=== PATIENT | male | born 1950 | race Two or more races ===

== ENCOUNTER 2020-06-27 10:45 | Day surgery (SDC) | payer MEDICARE, SELFPAY ==
[2020-06-21 11:58] VITALS: BP 119/56; PULSE 76; RESP 20; O2SAT 100; BMI 22.2
--- NOTE | 2020-06-21 12:50 | P.CONAN_ITS ---
Documented by User: Naty Castro 06/26/20 08:46 HPI - Anesthesia Eval Consult details Narrative: 69yo M for EGD with dil h/o mult EGD with GA-ETT 6.5 (tight fit), requires glidescope. Very poor mouth opening d/t throat CA s/p radiation PMFSH Past Medical History Medical History Anemia Aortic aneurysm Arthritis Back pain Cancer COPD (chronic obstructive pulmonary disease) Depression Difficulty swallowing Elevated cholesterol GERD (gastroesophageal reflux disease) History of chemotherapy HTN (hypertension) Hx of radiation therapy Pulmonary nodule Thyroid disease Surgical History Surgical History H/O colonoscopy History of back surgery History of esophagogastroduodenoscopy (EGD) History of Problems with Anesthesia: No Social History Social History Smoking Status: Former smoker Packs Per Day: 2 Cigarettes Per Day: 40.0 Years Smoked: 25 Smoked in Last 30 Days: No Smoking Quit Date: 2001 Use of substances other than those prescribed or required for medical reasons: No Advance Directives Information Provided: No Recently lost weight without trying: Yes Narrative Narrative: Intermittant chest pain with neg work up. Sees [facility] [place] [facility]. No further work up at this time per 12/2019 note. No change in symptoms. (See Exam for test results) Meds Allergies Allergy/AdvReac Type Severity Reaction Status Date / Time Penicillins Allergy Rash Verified 06/27/20 11:10 aspirin [ASA] AdvReac Intermediate GI BLEED, Verified 06/27/20 11:10 Headaches Home Medications Medication Instructions Recorded Confirmed Type albuterol sulfate 2 puff INHALATION Q4-5H PRN 06/21/20 06/21/20 History atorvastatin 1 tab PO BEDTIME 06/21/20 06/21/20 History cyanocobalamin (vitamin B-12) 1 tab PO DAILY 06/21/20 06/21/20 History [Vitamin B-12] duloxetine 30 mg PO DAILY 06/21/20 06/21/20 History duloxetine 60 mg PO DAILY 06/21/20 06/21/20 History famotidine 40 mg PO DAILY 06/21/20 06/21/20 History ferrous sulfate [Iron (ferrous 325 mg PO DAILY 06/21/20 06/21/20 History sulfate)] gabapentin 1 cap PO TID 06/21/20 06/21/20 History levothyroxine 88 mcg PO DAILY 06/21/20 06/21/20 History losartan 1 tab PO DAILY 06/21/20 06/21/20 History metoprolol tartrate 25 mg PO BID 06/21/20 06/21/20 History multivitamin 1 tab PO DAILY 06/21/20 06/21/20 History nabumetone 500 mg PO BID 06/21/20 06/21/20 History nitroglycerin 1 tab SUBLINGUAL NEEDED PRN 06/21/20 06/21/20 History omeprazole 1 cap PO DAILY 06/21/20 06/21/20 History tizanidine 1 cap PO TID 06/21/20 06/21/20 History tramadol 1 tab PO BID PRN 06/21/20 06/21/20 History umeclidinium-vilanterol [Anoro 1 inh INHALATION DAILY 06/21/20 06/21/20 History Ellipta] Exam Exam Date and Time: June 21, 2020 1250 Height,Weight and Vital Signs: Height 5 ft 7 in Weight 64.41 kg Last Vital Signs Pulse 76 06/21/20 11:58 Resp 20 06/21/20 11:58 BP 119/56 L 06/21/20 11:58 Pulse Ox 100 06/21/20 11:58 Pertinent Lab Results Pertinent Lab Results: Laboratory Tests 05/20/20 05/20/20 14:44 14:44 WBC 5.7 Hgb 10.0 L Hct 30.6 L Plt Count 231 D Sodium 136 Potassium 3.4 Chloride 100 BUN 13 Creatinine 0.84 Narrative Narrative: EK/min. NSR with SA, non-spec T wave abnormality MIBI: normal perfusion and without any evidence of ischemia or infarction. Normal gated LVEF. ECHO: normal LVEF, 55-60%; mild diastolic dysfunction; [id number] aortic valve regurgitation and mild ascending aortic dilatation. CTA: 50% narrowing focally at the origin of 2nd diagonal branch. There is moderate calcification of the LAD with some scattered mild stenosis. The total calcium score was 528. Ascending aortic size was described as 4.3 x 4.3 cm. PFT 11/2019: No obstructive vent defect. No bronchodilator response. Decreased diffusion capacity suggests emphysema. Airway Loose/Missing/Broken Teeth: Yes (edentulous) Heart: RRR Lungs: CTAB Assessment and Plan Assessment Anesthesia Assessment: Anesthesia Plan Discussed and PAT Visit Documented by User: Citlalli Pradhan 06/27/20 11:35 PMFSH Past Medical History Medical History Anemia Aortic aneurysm Arthritis Back pain Cancer COPD (chronic obstructive pulmonary disease) Depression Difficulty swallowing Elevated cholesterol GERD (gastroesophageal reflux disease) History of chemotherapy HTN (hypertension) Hx of radiation therapy Pulmonary nodule Thyroid disease Surgical History Surgical History H/O colonoscopy History of back surgery History of esophagogastroduodenoscopy (EGD) Social History Social History Smoking Status: Former smoker Packs Per Day: 2 Cigarettes Per Day: 40.0 Years Smoked: 25 Smoked in Last 30 Days: No Smoking Quit Date: 2001 Use of substances other than those prescribed or required for medical reasons: No Advance Directives Information Provided: No Recently lost weight without trying: Yes Meds Allergies Allergy/AdvReac Type Severity Reaction Status Date / Time Penicillins Allergy Rash Verified 06/27/20 11:10 aspirin [ASA] AdvReac Intermediate GI BLEED, Verified 06/27/20 11:10 Headaches Home Medications Medication Instructions Recorded Confirmed Type albuterol sulfate 2 puff INHALATION Q4-5H PRN 06/21/20 06/21/20 History atorvastatin 1 tab PO BEDTIME 06/21/20 06/21/20 History cyanocobalamin (vitamin B-12) 1 tab PO DAILY 06/21/20 06/21/20 History [Vitamin B-12] duloxetine 30 mg PO DAILY 06/21/20 06/21/20 History duloxetine 60 mg PO DAILY 06/21/20 06/21/20 History famotidine 40 mg PO DAILY 06/21/20 06/21/20 History ferrous sulfate [Iron (ferrous 325 mg PO DAILY 06/21/20 06/21/20 History sulfate)] gabapentin 1 cap PO TID 06/21/20 06/21/20 History levothyroxine 88 mcg PO DAILY 06/21/20 06/21/20 History losartan 1 tab PO DAILY 06/21/20 06/21/20 History metoprolol tartrate 25 mg PO BID 06/21/20 06/21/20 History multivitamin 1 tab PO DAILY 06/21/20 06/21/20 History nabumetone 500 mg PO BID 06/21/20 06/21/20 History nitroglycerin 1 tab SUBLINGUAL NEEDED PRN 06/21/20 06/21/20 History omeprazole 1 cap PO DAILY 06/21/20 06/21/20 History tizanidine 1 cap PO TID 06/21/20 06/21/20 History tramadol 1 tab PO BID PRN 06/21/20 06/21/20 History umeclidinium-vilanterol [Anoro 1 inh INHALATION DAILY 06/21/20 06/21/20 History Ellipta] Exam Airway Mallampati Class: IV TM Dist: >3cm Neck ROM: Limited Denture: Upper and Lower Heart: RRRR Lungs: CTA BL Other: pt known difficult airway aware of riskd Assessment and Plan Final Anesthetic Review NPO: Yes ASA Class: III Final Preanesthetic Review: Meds/Allgs Chart Reviewed and Consent Obtained/Reviewed Patient Risk: High Procedure Risk: High Anesthetic Plan Anesthetic Plan: GA (Pt aware high risk refusing peg placement, rather than have a peg ) and Agree w/ Assess. and Plan Disposition: Standard PACU
[2020-06-27 10:53] VITALS: BP 148/62; PULSE 74; RESP 16; TEMP 36.2; O2SAT 98
--- NOTE | 2020-06-27 11:34 | P.HPSUR_ITS ---
Pre-Procedural Eval Section B Chief Complaint: dysphasia Details of Present Illness: dysphagia Relevant Social History: None Present Medications: see Short Stay Collaborative assessment Medical History: Significant History (pulmonary fibrosis, throat c ancer,aneurysm) History of Previous Operations: Relevant previous surgery/procedure and date(s) (back surgery) Allergies: Allergies Allergy/AdvReac Type Severity Reaction Status Date / Time Penicillins Allergy Rash Verified 06/27/20 11:10 aspirin [ASA] AdvReac Intermediate GI BLEED, Verified 06/27/20 11:10 Headaches Review of Systems Sugical H&P ROS: Negative: Constitution, Cardiovascular, Respiratory, Neurological, Psychiatric, Hem-Onc, Allergic/Immunologic, Genitourinary, Musculoskeletal, Integumentary, Endocrine and Eyes/Ears/Nose/Throat and Yes, Specify: Gastrointestinal (dysphagia) Exam Surgical H&P Exam: Normal: Heart, Normal: Lungs, Normal: Extremities, Normal: Abdomen, Normal: Skin and Normal: Neurological and Significant Findings: HEENT (raspy voice, ) Plan Diagnosis/Plan: Unchanged Patient has been examined and remains a candidate for the planned procedure
--- NOTE | 2020-06-27 12:18 | PM.OP ---
Brief Operative Note Date of procedure: 06/27/20 Pre-op diagnosis: dysphagia Post-op diagnosis: same Procedure: EGD and dilation--see op note Surgeon: Renard Payan MD Anesthesia: GETA Estimated blood loss (mL): 10 Condition: stable Disposition: PACU
--- NOTE | 2020-06-27 12:19 | W.PM.OPN ---
Operative Note Operative Note Narrative: Procedure Description: EGD FLEXIBLE TRANSORAL UPPER GASTROINTESTINAL ENDOSCOPY UPPER ENDOSCOPY Consent: Indications for the procedure and potential complications of bleeding, perforation, reaction to medications and missed diagnosis were discussed with the patient and informed consent was obtained. Instrument: Olympus ultra slim scope Monitoring: Vital signs and clinical assessment, continuous EKG monitoring, Pulse oximetry, Carbon Dioxide monitoring and blood pressure monitoring were done throughout the procedure. Procedure: The patient was placed in the left lateral decubitis position and pre-procedure medications were administered and a bite block was placed. The endoscope was inserted into the mouth and advanced under direct vision to the third part of duodenum. A careful inspection was made as the upper endoscope was withdrawn including a retroflexed examination of the proximal stomach; Findings and interventions are described below. Findings: Larynx:normal Esophagus: GE junction at 40 cm, diaphragm hiatus at 40 cm, salmon pink mucosa noted consistent with barretts esophagus about 4-5 cm in length Stricture noted at 25 cm and also tight upper esophageal sphincter. A 0.035 in biliary wire was placed and then a balloon directed over the strictured areas. under direct endoscopic visualization the ballon was dilated to max 8 mm, minor amount of oozing noted. Stomach: normal. Grade 2 flap valve on retroflexed examination of the cardia. 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 avoid nsaids for 1 week, can use tylenol for pain if needed
[2020-06-27 12:32] VITALS: BP 120/70; PULSE 93; RESP 16; TEMP 36.8; O2SAT 100
[2020-06-27 12:49] VITALS: BP 99/74; PULSE 87; RESP 17; O2SAT 100
[2020-06-27 12:58] VITALS: BP 130/76; PULSE 88; RESP 12; O2SAT 100
[2020-06-27 13:03] VITALS: BP 131/76; PULSE 89; RESP 12; O2SAT 100
--- NOTE | 2020-06-27 13:27 | PC.NURSE ---
IVF were not scanned when initiated. Pt received total of 850ml LR periop.
--- NOTE | 2020-06-27 13:57 | HO.POSTANES ---
Post Anesthesia Evaluation Post Anesthesia Evaluation Vital Signs: Vital Signs Temp Pulse Resp BP Pulse Ox 06/27/20 13:03 98.3 F 89 12 131/76 100 06/27/20 12:58 88 12 130/76 100 06/27/20 12:49 87 17 99/74 100 06/27/20 12:32 98.3 F 93 16 120/70 100 06/27/20 10:53 97.2 F 74 16 148/62 H 98 Anesthesia: General Endotracheal-GETA Mental Status: Awake Pain Control: Satisfactory Nausea/Vomiting: None Hydration: Adequate Anesthesia-Related Issues: No Anes. Related Issues
== END 2020-06-27 13:53 | disposition home or self-care (01) ==
PROVIDERS: PCP Internal Medicine; Visit Provider Internal Medicine Gastroenterology
PROC: 0DJ08ZZ Inspection of Upper Intestinal Tract, Via Natural or Artificial Opening Endoscopic (ICD-10-PCS; CPT 43235; principal; 2020-06-27 12:20)
DX: K22.2 Esophageal obstruction (principal); K44.9 Diaphragmatic hernia without obstruction or gangrene; I10 Essential (primary) hypertension; D64.9 Anemia, unspecified; J44.9 Chronic obstructive pulmonary disease, unspecified; E78.00 Pure hypercholesterolemia, unspecified; K21.9 Gastro-esophageal reflux disease without esophagitis; Z85.21 Personal history of malignant neoplasm of larynx; Z92.3 Personal history of irradiation; Z92.21 Personal history of antineoplastic chemotherapy
CPT/HCPCS: 43249; C1726; C1769; J0330; J1100; J2250

== ENCOUNTER 2020-07-10 16:57 | Outpatient (REF) | payer MEDICARE, SELFPAY | END 2020-07-10 16:58 | disposition home or self-care (01) | LOC: HO.LAB 16:57 | PROVIDERS: PCP Internal Medicine; Visit Provider Internal Medicine | DX: Z20.828 Contact with and (suspected) exposure to other viral communicable diseases (principal) | CPT/HCPCS: U0003 ==

== ENCOUNTER → 2020-07-17 12:55 | Outpatient (REF) | payer MEDICARE, SELFPAY ==
--- NOTE | 2020-07-17 13:01 | CA_ITS ---
Transthoracic Echocardiogram Patient (Last, First, Middle): Lawrence Pedersen, Gender: Male Date of : 1950 Age: 69 Procedure Date: 07/17/2020 Procedure Type: Transthoracic Echocardiogram Location: OP Height: 170.18 cm Weight: 61.24 kg BSA: 1.71 m2 Heart Rate: bpm BP: 118 / 58 mmHg Route Carrier: LUL Referring MD: Bennie Genao MD Dopster: Antoino Vasquez MD Symptoms: ASCENDING AORTIC ANUERYSM Study Quality: Fair ECG Rhythm: Sinus Conclusions: - 1. Normal LV systolic function with grade 1 diastolic dysfunction 2. Mildly dilated ascending aorta at the sinotubular junction, remainder of the ascending aorta was not well visualized. Consider CTA 3. Mild aortic regurgitation 4. Normal RV systolic pressure 5. No pericardial effusion Findings Left Ventricle Normal left ventricular size, thickness, and systolic function. The visually estimated ejection fraction is between 60-65%. Spectral Doppler is indicative of an impaired relaxation filling pattern. E/E prime ratio is <8, consistent with normal filling pressures. Evidence suggests grade I (mild) diastolic dysfunction. Right Ventricle Normal right ventricular cavity size and systolic function. Atria Both atria are normal in size. There is no evidence of interatrial shunt. Aortic Valve There is mild calcification of the aortic valve. There is no aortic valve stenosis. There is mild aortic valve regurgitation. Mitral Valve Normal mitral valve structure and function. There is trace mitral valve regurgitation. There is no mitral valve stenosis. Pulmonic Valve The pulmonic valve is likely normal. There is trace pulmonic valve regurgitation. Tricuspid Valve Normal tricuspid valve structure. The right ventricular systolic pressure is normal. The right ventricular systolic pressure is 23 mmHg. Normal right atrial pressure. There is no evidence of pulmonary hypertension. Great Vessels The pulmonary artery was not well visualized. There is mild dilatation of the sino tubular ridge measuring 4.11 cm. The ascending aorta was not well visualized. Consider aortic CTA to further evaluate the entire aorta Venous The inferior vena cava is normal in size and collapses greater than 50% with inspiration. Pericardium/Pleural There is no evidence of pericardial effusion. Measurements 2D Linear Measurements IVSd: 1.06 0.6-0.9/0.6-1.0 cm LVIDd: 3.57 3.9-5.3/4.2-5.9 cm LVIDd Index: 2.09 2.4-3.2/2.2-3.1 cm/m2 LVIDs: 2.32 2.0-3.6 cm LVPWd: 1.06 0.7-1.1 cm Ao Root: 3.90 2.1-3.5 cm LA Diam: 2.80 2.7-3.8/3.0-4.0 cm LAIDs Index: 1.64 1.5-2.3 cm/m2 LV Mass: 144.27 67-162/88-224 g LV Mass Index: 84.37 43-95/49-115 g/m2 LVOT Diam: 2.00 3.0+(-)1.3 cm Mitral Valve MV Pk E: 0.50 MV PK A: 0.85 MV Decel Time: 190.00 E/A: 0.60 E'Lateral: 6.58 E'Medial: 6.67 E/E' Med: 7.40 E/E' Lat: 7.50 PHT: 56.00 MVA PHT: 3.93 Decel Park: 2.60 Aortic Valve AoV Pk Jonn: 1.80 AoV Mn Jonn: 1.20 AoV VTI: 0.37 AoV Pk Grad: 13.00 Aov Mn Grad: 7.00 JENNIFER Cont.VTI: 1.92 AI Pk Jonn: 4.23 AI Park: 3.37 LVOT LVOT Pk Jonn: 0.98 LVOT Mn Jonn: 0.70 LVOT VTI: 0.23 LVOT Pk Grad: 4.00 LVOT Mn Grad: 2.00 LVOT Diam: 2.00 LVOT Area: 3.14 Diastolic Function MV Pk E: 0.50 MV Pk A: 0.85 E/A: 0.60 E'Medial: 6.67 E/E' Med: 7.40 E' Laterial: 6.58 E/E' Lat: 7.50 Tricuspid Valve TR Pk Jonn: 2.24 TR Pk Grad: 20.00 RA Press: 3.00 RVSP: 23.00 Great Vessels Aorta Ao Root-2D: 3.90 2.0-3.[address] Ridge: 4.11 1.7-3.4 cm Pulmonary Valve PV Pk Jonn: 0.98 Peak PV Grad: 4.00 Updated in Other Vendor System with Status of Final Antonio Vasquez MD electronically signed on 07/18/2020 9:55:34 AM with status of Final
== END ==
LOC: HO.CARD 12:55
PROVIDERS: PCP Internal Medicine; Visit Provider Internal Medicine
DX: I71.2 Thoracic aortic aneurysm, without rupture (principal)
CPT/HCPCS: 93306

== ENCOUNTER → 2020-07-19 09:55 | Outpatient (BNVA) | payer MEDICARE, SELFPAY | PROVIDERS: PCP Internal Medicine; Referring Provider Internal Medicine; Visit Provider Student in an Organized Health Care Education/Training Program | DX: M17.12 Unilateral primary osteoarthritis, left knee (principal) | CPT/HCPCS: 20610; 99212 ==

== ENCOUNTER → 2020-09-28 08:36 | Outpatient (BNVA) | payer MEDICARE, SELFPAY | PROVIDERS: Visit Provider Internal Medicine Gastroenterology | DX: Z13.89 Encounter for screening for other disorder (principal) | CPT/HCPCS: Q3014 ==

== ENCOUNTER → 2020-11-21 12:31 | Outpatient (BNVA) | payer MEDICARE, SELFPAY | PROVIDERS: PCP Internal Medicine; Visit Provider Student in an Organized Health Care Education/Training Program | DX: M17.12 Unilateral primary osteoarthritis, left knee (principal); M54.42 Lumbago with sciatica, left side; G89.29 Other chronic pain | CPT/HCPCS: 20610; 99212 ==

== ENCOUNTER → 2020-12-12 12:58 | Outpatient (BNVA) | payer MEDICARE, SELFPAY | PROVIDERS: PCP Internal Medicine; Visit Provider Internal Medicine Pulmonary Disease | DX: J84.10 Pulmonary fibrosis, unspecified (principal); R06.00 Dyspnea, unspecified; R91.8 Other nonspecific abnormal finding of lung field; Z87.891 Personal history of nicotine dependence | CPT/HCPCS: 99212 ==

== ENCOUNTER 2021-03-04 07:33 | Inpatient (IN) | payer MEDICARE, SELFPAY ==
[2021-03-04] VITALS (14 sets, daily range): BP systolic 64–164; BP diastolic 35–81; PULSE 71–91; RESP 12–18; TEMP 36.4–37.3; O2SAT 96–100; BMI 20.3; BMI 22.1
--- NOTE | ~2021-03-04 | CT_ITS ---
EXAMINATION: CT BRAIN AND CT CLINICAL INFORMATION: Syncope COMPARISON: CT brain and cervical spine 05/20/2020 TECHNIQUE: 5 mm thin axial and reformatted 2 mm thin sagittal and coronal images of brain were obtained. Subsequently axial 2 mm thin and reformatted 3 mm thin sagittal and coronal images of neck were obtained with IV 85 mL Omnipaque 350. DLP 1075.. FINDINGS: Brain: There is no acute intra-axial, extra-axial bleed,, masses or collection. There is no midline shift. The lateral ventricles are symmetrical in size but enlarged. There is punctate basal ganglia calcifications. There is no edema. No acute infarction in evolution. The figueroa to white matter difference is maintained normal. Bone windows reveal no calvarial abnormality. No skin scalp soft tissue abnormality. Diffuse mucoperiosteal thickening in bilateral ethmoid and sphenoid sinuses is visualized. Bilateral mastoid air cells are well-aerated. Soft tissue neck: Visualized intracranial brain parenchyma is normal. The carotid and both vertebral arteries including basilar artery are widely patent. There is normal aeration of bilateral paranasal sinuses and mastoid air cells. The bony sinus mehta are intact. The trachea is significantly dilated. The thyroid lobes are symmetrical. Mild prominence of epiglottis and mild thickening of parapharyngeal mucosal space is again present similar to previous study. The cervical esophagus lies to left of trachea with air within. No abnormal mass or abnormal adenopathy seen. There is bilateral apical parenchymal scarring greater on the right side with a left apical calcification similar previous study. Centrilobular emphysema is noted. Left lower lobe superior segment linear stranding is seen likely chronic scarring or atelectasis. CT/CT soft tissue neck w con IMPRESSION: No acute intracranial process seen. Mild mucoperiosteal thickening ethmoid and sphenoid sinuses noted. No acute abnormality seen in the soft tissues of the neck. Nonspecific mild thickening of the mucosal space involving the epiglottis and the laryngeal area. No focal enhancing mass, abnormal lymphadenopathy seen. No fat visualized in the prevertebral and retropharyngeal soft tissues likely secondary to radiation changes. There is bilateral apical parenchymal chronic scarring likely post radiation changes.
--- NOTE | ~2021-03-04 | XR_ITS ---
EXAMINATION: XR CHEST CLINICAL INFORMATION: Syncope COMPARISON: None TECHNIQUE: 2 views of the chest were obtained. FINDINGS: No significant abnormality is noted involving the heart, lungs, mediastinum, bony thorax or soft tissues. XR/XR chest 2V IMPRESSION: Unremarkable chest exam
--- NOTE | 2021-03-04 08:19 | ECG_ITS ---
Test Reason : SYNCOPE Blood Pressure : / mmHG Vent. Rate : 072 BPM Atrial Rate : 072 BPM P-R Int : 138 ms QRS Dur : 076 ms QT Int : 448 ms P-R-T Axes : 066 007 049 degrees QTc Int : 490 ms Normal sinus rhythm Prolonged QT Abnormal ECG When compared with ECG of 20-MAY-2020 14:45, QT has lengthened Referred By: Lianne Grimaldo Electronically Signed By:VANDA MALIK MD
--- NOTE | 2021-03-04 08:22 | ED.SYNCOPE ---
HPI - Syncope General Chief Complaint: Syncope Stated Complaint: dizziness neck pain Time Seen by Provider: 03/04/21 08:12 Source: patient Mode of arrival: ambulatory Limitations: no limitations History of Present Illness HPI narrative: 70-year-old male with a past medical history of throat cancer status post radiation 2002, chronic dysphagia 2/2 stricture with serial dilations (last 06/[address] Payan), chronic low back pain, osteoarthritis here with complaints of syncope. The patient tells me he dropped his off at short-stay surgery this morning and while he was walking out to the parking lot he started to feel very dizzy and fainted . he tells me has a history of this happening before and it was from low blood pressure. He on arrival to the emergency department is alert and oriented. He is complaining of feeling and dizzy. He tells me he has had a 60 lb weight loss over the course of the last 20yrs d/t chronic dysphagia after his radiation for throat cancer. He tells me that it has been recommended that he have a G-tube placed but he refused this. he drinks Ensure daily and can tolerate most liquids but has had increasingly difficult time with pureed and soft foods as well as swallow his pills over the last 1-2 months. He denies any shortness of breath. He does have a chronic cough and has known pulmonary nodules and is followed by pulmonology for this. He denies any chest pain, abdominal pain, vomiting, diarrhea, headache or neck pain. Related Data Home Medications Medication Instructions Recorded Confirmed atorvastatin 1 tab PO BEDTIME 06/21/20 03/04/21 cyanocobalamin (vitamin B-12) 1 tab PO DAILY 06/21/20 03/04/21 [Vitamin B-12] duloxetine 30 mg PO DAILY 06/21/20 03/04/21 duloxetine 60 mg PO DAILY 06/21/20 03/04/21 ferrous sulfate [Iron (ferrous 325 mg PO DAILY 06/21/20 03/04/21 sulfate)] nitroglycerin 1 tab SUBLINGUAL NEEDED PRN 06/21/20 03/04/21 omeprazole 40 mg PO DAILY 06/21/20 03/04/21 tizanidine 1 cap PO TID 06/21/20 03/04/21 umeclidinium-vilanterol [Anoro 1 inh INHALATION DAILY 06/21/20 03/04/21 Ellipta] fluticasone propionate 110 2 inh INHALATION BID 09/28/20 03/04/21 mcg/actuation HFA aerosol inhaler meclizine 25 mg tablet 25 mg PO Q8H PRN 09/28/20 03/04/21 naproxen 500 mg tablet 500 mg PO BID 09/28/20 03/04/21 artifi.tears(hypromellose)(PF) 1 drp OPHTHALMIC (EYE) BID PRN 03/04/21 03/04/21 capsaicin-menthol [Salonpas 1 patch TOPICAL TID 03/04/21 03/04/21 (capsaicin-menthol)] fluticasone propionate 1 spray INTRANASAL DAILY 03/04/21 03/04/21 gabapentin 1 cap PO TID 03/04/21 03/04/21 levocetirizine 1 tab PO QPM 03/04/21 03/04/21 levothyroxine 1 tab PO DAILY 03/04/21 03/04/21 losartan 1 tab PO DAILY 03/04/21 03/04/21 tizanidine 1 tab PO BEDTIME 03/04/21 03/04/21 triamcinolone acetonide 1 appl TOPICAL BID 03/04/21 03/04/21 Previous Rx's Medication Instructions Recorded albuterol sulfate 90 mcg/actuation 2 puff INHALATION Q4-5H PRN 30 12/12/20 aerosol inhaler Days #1 ea tramadol 50 mg tablet 50 mg PO TID PRN #90 tab 02/12/21 Allergies Allergy/AdvReac Type Severity Reaction Status Date / Time Penicillins Allergy Rash Verified 12/12/20 13:05 aspirin [ASA] AdvReac Intermediate GI BLEED, Verified 12/12/20 13:05 Headaches Review of Systems Review of Systems: Yes all other systems are reviewed and are negative Constitutional: Constitutional: Reports no additional constitutional complaints, Denies body ache(s), Denies chills, Denies fever(s), Denies headache(s) and Denies weakness Eyes: Eyes: Reports no additional eye complaints and Denies change in vision ENT: Reports system reviewed and no additional complaints, except as documented, Reports dysphagia, Reports dizziness, Denies headache(s), Denies nasal congestion, Denies nasal discharge and Denies neck pain Cardiovascular: Cardiovascular: Reports no additional cardiovascular complaints, Denies chest pain, Denies leg edema and Denies dyspnea Respiratory: Respiratory: Reports no additional respiratory complaints, Denies cough and Denies dyspnea Gastrointestinal: Gastrointestinal: Reports no additional gastrointestinal complaints, Denies abdominal pain, Reports dysphagia, Denies diarrhea, Denies nausea and Denies vomiting Genitourinary: Genitourinary: Denies urinary incontinence Musculoskeletal: Musculoskeletal: Reports no additional musculoskeletal complaints, Denies back pain, Denies arthralgias, Denies joint swelling, Denies neck pain, Denies numbness and Denies tingling Integumentary/Breasts: Skin/Breast: Reports system reviewed and no additional complaints, except as docu and Denies rash Neurologic: Reports system reviewed and no additional complaints, except as documented, Denies Abnormal speech present, Reports dizziness, Denies headache(s), Denies numbness, Denies tingling and Denies weakness PMFSH Past Medical History Attestation statement: The following information was validated with the patient. Source: old records reviewed and nursing notes reviewed Medical History Anemia Aortic aneurysm Arthritis Back pain Cancer COPD (chronic obstructive pulmonary disease) Depression Difficulty swallowing Elevated cholesterol GERD (gastroesophageal reflux disease) History of chemotherapy HTN (hypertension) Hx of radiation therapy Osteoarthritis of left shoulder Pulmonary nodule Thyroid disease Surgical History H/O colonoscopy History of back surgery History of esophagogastroduodenoscopy (EGD) Family History Family History Father Brain cancer Mother CVD (cardiovascular disease) Maternal Aunt Diabetes Social History Social History Alcohol intake: never Cigarette Packs Per Day: 2 Cigarettes Per Day: 40.0 Years Smoked: 25 Smoked in Last 30 Days: No Use of substances other than those prescribed or required for medical reasons: No Advance Directives: Yes Advance Directives Information Provided: Yes Advance Directives on File: No Physical Exam Vital Signs: Vital Signs: Last Vital Signs Temp 99.1 F 03/04/21 14:25 Pulse 88 03/04/21 14:25 Resp 18 03/04/21 14:25 BP 114/75 03/04/21 14:25 Pulse Ox 96 03/04/21 14:25 Body Mass Index 20.3 Const: Other: Very thin appearing General: alert Orientation/consciousness: patient oriented x3 Limitations: no limitations HENMT: Head: Yes normal to inspection Ears: hearing grossly normal bilaterally General nose exam: Normal external nose present Face and sinus: Yes normal facial exam Mouth: Normal oral and palatal mucosa present Throat: Yes posterior oropharynx normal and Yes tonsils normal Eyes: General: appearance normal, both eyes and all related structures Pupils: Equal, round and reactive pupils present Neck: Other: no midline tenderness, step-offs or deformities Neck: Yes normal visual inspection, Yes full ROM, Yes no lymphadenopathy and Yes no meningeal signs Chest: Chest palpation & inspection: normal inspection of the chest Resp: Effort & Inspection: normal respiratory effort Auscultation: clear to auscultation bilaterally Cardio: Rate: regular rate Rhythm: regular rhythm Peripheral pulses: Peripheral pulses 2+ throughout GI: Inspection: Yes normal to inspection Palpation (GI): Soft to palpation and nontender Auscultation: normal bowel sounds Back/Spine/Pelvis: Thoracic/Lumbar Spine: thoracic and lumbar spine normal to inspection Skin: General skin exam: no rashes or lesions noted Neuro: General: patient oriented x3, no meningeal signs, no focal motor deficits and normal sensation to monofilament Cranial nerves: Yes CN's II-XII intact bilaterally, Yes Equal, round and reactive pupils present, Yes Bilaterally intact EOM present, Yes Nystagmus not present, Yes Normal facial strength present and Yes Midline tongue present Cognition (Neuro): normal cognition Speech: No Abnormal speech present Motor exam (neuro): 5/5 motor strength present throughout Sensory Exam: Normal double simultaneous stimulation for sensation Extrem: General: Yes normal to inspection, Yes no pedal edema and Yes no calf tenderness Course Course Course Narrative: 70-year-old male here with complaints of dizziness, syncopal episode which occurred today in the parking lot. On arrival the patient is alert and oriented. He is noted to be hypotensive with a blood pressure of 70/30. He tells me his normal blood pressure is around 90 systolic. He does run low and has a history of syncope. He tells me that he has chronic dysphagia and is only able to tolerate and sugar and liquids. He was able to tolerate pureed food and his medications but over the last 1-2 menses had difficulty with these. It has been recommended that he have a G-tube but he declined this. No other complaints. Will need labs, CXR, UA, orthostatics, CT head, CT neck with IV contrast. Hypotension due to dehydration with poor p.o. intake and not from infection. Normal saline bolus ordered 0925- patient baseline hemoglobin around 10. Today hemoglobin 7.5. hematocrit 23.5. denies any black or bloody stools. He did have a bad nosebleed several days ago. Denies any current NSAID use. history of GI bleed secondary to this previously. type and screen ordered. due to hypotension with decrease in hemoglobin will consent patient for 1 unit of PRBC. -1100-CT head negative. CT neck w/ IV contrast No acute abnormality seen in the soft tissues of the neck. Nonspecific mild thickening of the mucosal space involving the epiglottis and the laryngeal area. No focal enhancing mass, abnormal lymphadenopathy seen. No fat visualized in the prevertebral and retropharyngeal soft tissues likely secondary to radiation changes. There is bilateral apical parenchymal chronic scarring likely post radiation changes. -BP improved 130 systolic now and patient feeling improved. initial troponin mildly elevated. No EKG changes or chest pain. Plan for repeat 3 hour troponin. All other labs reviewed and are unremarkable. Discussed with Dr. Montes who accepted admission to hospital. MDM - Syncope Differential Diagnosis Differential diagnosis: Likely syncope due to orthostatic hypotension, subarachnoid hemorrhage and dehydration Medical Records Attestation: I reviewed the patient's medical records. Lab Data Attestation: I reviewed the patient's lab results. Result diagrams: 03/04/21 08:54 03/04/21 08:54 Labs: Lab Results 03/04/21 03/04/21 03/04/21 Range/Units 08:53 08:53 08:54 WBC 6.4 (4.8-10.8) X10*3/uL RBC 2.47 L (4.60-5.80) X10*6/uL Hgb 7.5 L (14.0-18.0) g/dl Hct 23.5 L (42-52) % MCV 95.1 (80-98) fL MCH 30.4 (27.0-33.0) pg MCHC 31.9 (31.0-36.0) g/dl RDW 15.9 (11.0-16.0) % Plt Count 259 (160-400) X10*3/uL MPV 10.4 (9.4-12.4) fL Immature Gran % (Auto) 0.5 H (0.0-0.4) % Neut % (Auto) 73.8 H (45-73) % Lymph % (Auto) 9.9 L (20-40) % [place] % (Auto) 13.0 H (2-11) % Eos % (Auto) 2.3 (0-4) % Baso % (Auto) 0.5 (0-2) % Lymph # (Auto) 0.6 L (1.2-4.9) X10*3/uL [place] # (Auto) 0.8 (0.1-1.2) X10*3/uL Eos # (Auto) 0.2 (0.0-0.4) X10*3/uL Baso # (Auto) 0.0 (0.0-0.2) X10*3/uL Abs Immat Gran (auto) 0.03 (0.00-0.03) X10*3/uL Absolute Neuts (auto) 4.7 (2.0-8.3) X10*3/uL Absolute Nucleated RBC 0.000 (0.0-0.012) X10*3/uL Nucleated RBC % (auto) 0.0 (0.0-0.2) /100WBC PT (10.8-13.0) SEC INR (0.9-1.1) Sodium (135-145) mmol/L Potassium (3.3-5.1) mmol/L Chloride (96-108) mmol/L Carbon Dioxide (22-29) mmol/L Anion Gap (12-20) BUN (9-16) mg/dL Creatinine (0.5-1.4) mg/dL Estim Creat Clear Calc Estimated GFR Random Glucose (60-115) mg/dL Lactic Acid 2.1 H* (0.5-2.0) mmol/L Lactic Acid Fup @ 2Hr (0.5-2.0) mmol/L Calcium (8.4-10.2) mg/dL Total Bilirubin (0.0-1.0) mg/dL Direct Bilirubin (0.0-0.5) mg/dL AST (5-37) U/L ALT (0-40) U/L Alkaline Phosphatase (39-117) U/L Troponin I High Sens 8.0 (<3.5-35.0) ng/L Total Protein (6.5-8.0) g/dL Albumin (3.5-5.0) g/dL Lipase (8-78) U/L Urine Color Urine Appearance Urine pH (5.0-8.0) Ur Specific [place] (1.005-1.025) Urine Protein (NEG-TRACE) MG/DL Urine Glucose (UA) (NEG) MG/DL Urine Ketones (NEG) MG/DL Urine Blood (NEG) Urine Nitrite (NEG) Ur Leukocyte Esterase (NEG) Stool Occult Blood (NEGATIVE) Blood Type Antibody Screen Crossmatch 03/04/21 03/04/21 03/04/21 Range/Units 08:54 08:54 09:23 WBC (4.8-10.8) X10*3/uL RBC (4.60-5.80) X10*6/uL Hgb (14.0-18.0) g/dl Hct (42-52) % MCV (80-98) fL MCH (27.0-33.0) pg MCHC (31.0-36.0) g/dl RDW (11.0-16.0) % Plt Count (160-400) X10*3/uL MPV (9.4-12.4) fL Immature Gran % (Auto) (0.0-0.4) % Neut % (Auto) (45-73) % Lymph % (Auto) (20-40) % [place] % (Auto) (2-11) % Eos % (Auto) (0-4) % Baso % (Auto) (0-2) % Lymph # (Auto) (1.2-4.9) X10*3/uL [place] # (Auto) (0.1-1.2) X10*3/uL Eos # (Auto) (0.0-0.4) X10*3/uL Baso # (Auto) (0.0-0.2) X10*3/uL Abs Immat Gran (auto) (0.00-0.03) X10*3/uL Absolute Neuts (auto) (2.0-8.3) X10*3/uL Absolute Nucleated RBC (0.0-0.012) X10*3/uL Nucleated RBC % (auto) (0.0-0.2) /100WBC PT 11.8 (10.8-13.0) SEC INR 1.0 (0.9-1.1) Sodium 139 (135-145) mmol/L Potassium 3.6 (3.3-5.1) mmol/L Chloride 100 (96-108) mmol/L Carbon Dioxide 34 H (22-29) mmol/L Anion Gap 9 L (12-20) BUN 20 H (9-16) mg/dL Creatinine 1.28 (0.5-1.4) mg/dL Estim Creat Clear Calc 44.7 Estimated GFR 56 Random Glucose 107 (60-115) mg/dL Lactic Acid (0.5-2.0) mmol/L Lactic Acid Fup @ 2Hr (0.5-2.0) mmol/L Calcium 9.5 (8.4-10.2) mg/dL Total Bilirubin 0.3 (0.0-1.0) mg/dL Direct Bilirubin < 0.2 (0.0-0.5) mg/dL AST 23 (5-37) U/L ALT 12 (0-40) U/L Alkaline Phosphatase 86 (39-117) U/L Troponin I High Sens (<3.5-35.0) ng/L Total Protein 6.6 (6.5-8.0) g/dL Albumin 3.8 (3.5-5.0) g/dL Lipase 27 (8-78) U/L Urine Color Urine Appearance Urine pH (5.0-8.0) Ur Specific [place] (1.005-1.025) Urine Protein (NEG-TRACE) MG/DL Urine Glucose (UA) (NEG) MG/DL Urine Ketones (NEG) MG/DL Urine Blood (NEG) Urine Nitrite (NEG) Ur Leukocyte Esterase (NEG) Stool Occult Blood NEGATIVE (NEGATIVE) Blood Type Antibody Screen Crossmatch 03/04/21 03/04/21 03/04/21 Range/Units 09:34 11:54 12:07 WBC (4.8-10.8) X10*3/uL RBC (4.60-5.80) X10*6/uL Hgb (14.0-18.0) g/dl Hct (42-52) % MCV (80-98) fL MCH (27.0-33.0) pg MCHC (31.0-36.0) g/dl RDW (11.0-16.0) % Plt Count (160-400) X10*3/uL MPV (9.4-12.4) fL Immature Gran % (Auto) (0.0-0.4) % Neut % (Auto) (45-73) % Lymph % (Auto) (20-40) % [place] % (Auto) (2-11) % Eos % (Auto) (0-4) % Baso % (Auto) (0-2) % Lymph # (Auto) (1.2-4.9) X10*3/uL [place] # (Auto) (0.1-1.2) X10*3/uL Eos # (Auto) (0.0-0.4) X10*3/uL Baso # (Auto) (0.0-0.2) X10*3/uL Abs Immat Gran (auto) (0.00-0.03) X10*3/uL Absolute Neuts (auto) (2.0-8.3) X10*3/uL Absolute Nucleated RBC (0.0-0.012) X10*3/uL Nucleated RBC % (auto) (0.0-0.2) /100WBC PT (10.8-13.0) SEC INR (0.9-1.1) Sodium (135-145) mmol/L Potassium (3.3-5.1) mmol/L Chloride (96-108) mmol/L Carbon Dioxide (22-29) mmol/L Anion Gap (12-20) BUN (9-16) mg/dL Creatinine (0.5-1.4) mg/dL Estim Creat Clear Calc Estimated GFR Random Glucose (60-115) mg/dL Lactic Acid (0.5-2.0) mmol/L Lactic Acid Fup @ 2Hr 1.5 (0.5-2.0) mmol/L Calcium (8.4-10.2) mg/dL Total Bilirubin (0.0-1.0) mg/dL Direct Bilirubin (0.0-0.5) mg/dL AST (5-37) U/L ALT (0-40) U/L Alkaline Phosphatase (39-117) U/L Troponin I High Sens (<3.5-35.0) ng/L Total Protein (6.5-8.0) g/dL Albumin (3.5-5.0) g/dL Lipase (8-78) U/L Urine Color YELLOW Urine Appearance CLEAR Urine pH 7.0 (5.0-8.0) Ur Specific [place] <= 1.005 (1.005-1.025) Urine Protein NEG (NEG-TRACE) MG/DL Urine Glucose (UA) NEG (NEG) MG/DL Urine Ketones NEG (NEG) MG/DL Urine Blood NEG (NEG) Urine Nitrite NEG (NEG) Ur Leukocyte Esterase NEG (NEG) Stool Occult Blood (NEGATIVE) Blood Type O Positive Antibody Screen NEGATIVE Crossmatch See Detail Imaging Data Chest x-ray: Attestation: I personally reviewed and interpreted this imaging study as follows: Radiologist's impression: XAMINATION: XR CHEST CLINICAL INFORMATION: Syncope COMPARISON: None TECHNIQUE: 2 views of the chest were obtained. FINDINGS: No significant abnormality is noted involving the heart, lungs, mediastinum, bony thorax or soft tissues. XR/XR chest 2V IMPRESSION: Unremarkable chest exam CT head/neck: Attestation: I personally reviewed and interpreted this imaging study as follows: Radiologist's impression: IMPRESSION: No acute intracranial process seen. Mild mucoperiosteal thickening ethmoid and sphenoid sinuses noted. No acute abnormality seen in the soft tissues of the neck. Nonspecific mild thickening of the mucosal space involving the epiglottis and the laryngeal area. No focal enhancing mass, abnormal lymphadenopathy seen. No fat visualized in the prevertebral and retropharyngeal soft tissues likely secondary to radiation changes. There is bilateral apical parenchymal chronic scarring likely post radiation changes. ECG Data Attestation: I personally reviewed and interpreted this ECG as follows: ECG interpretation date: 03/04/21 ECG interpretation time: 08:11 Interpretation: normal sinus rhythm, normal [place], normal QRS, QTC 490 Critical Care Time Critical Care Time Critical Care Time: Yes Total Critical Care Time: 60 Attestation: Multiple re-evaluations for episodes of hypotension, fluid management, synmptomatic anemia requiring PRBCs Discharge Plan Discharge Clinical Impression: Dysphagia, Syncope due to orthostatic hypotension, Acute hypotension, Anemia Patient Disposition: Admitted As Inpatient
[2021-03-04] MEDS: 0.9 % Sodium Chloride 1,769.01 ML 1769.01 ML IV (08:55)
[2021-03-04 09:03] LABS: MANUAL DIFF FLAG NO
[2021-03-04 09:05] LABS: Basophils Percent Auto 0.5 % (0-2); Eosinophils Absolute Auto 0.2 X10*3/uL (0.0-0.4); Eosinophils Percent Auto 2.3 % (0-4); Hematocrit 23.5 % (42-52); Hemoglobin 7.5 g/dl (14.0-18.0); Imm Gran Abs Auto 0.03 X10*3/uL (0.00-0.03); Imm Gran Pct Auto 0.5 % (0.0-0.4); Lymphocytes Absolute Auto 0.6 X10*3/uL (1.2-4.9); Lymphocytes Percent Auto 9.9 % (20-40); Mean Corpuscular HGB Conc 31.9 g/dl (31.0-36.0); Mean Corpuscular Hemoglobin 30.4 pg (27.0-33.0); Mean Corpuscular Volume 95.1 fL (80-98); Mean Platelet Volume 10.4 fL (9.4-12.4); Monocytes Absolute Auto 0.8 X10*3/uL (0.1-1.2); Neutrophils Absolute Auto 4.7 X10*3/uL (2.0-8.3); Neutrophils Percent Auto 73.8 % (45-73); Platelet Count 259 X10*3/uL (160-400); Red Blood Count 2.47 X10*6/uL (4.60-5.80); Red Cell Distribution Width 15.9 % (11.0-16.0); White Blood Count 6.4 X10*3/uL (4.8-10.8)
[2021-03-04 09:10] LABS: Prothrombin Time 11.8 SEC (10.8-13.0)
[2021-03-04 09:32] LABS: Lactic Acid 2.1 mmol/L (0.5-2.0)
[2021-03-04 09:34] LABS: OBS Int Ctl Valid YES; OBS1 NEGATIVE (NEGATIVE)
[2021-03-04 10:05] LABS: Alanine Aminotransferase 12 U/L (0-40); Albumin Level 3.8 g/dL (3.5-5.0); Alkaline Phosphatase 86 U/L (39-117); Anion Gap 9 (12-20); Aspartate Amino Transferase 23 U/L (5-37); Bilirubin Direct < 0.2 mg/dL (0.0-0.5); Bilirubin Total 0.3 mg/dL (0.0-1.0); Blood Urea Nitrogen 20 mg/dL (9-16); Calcium 9.5 mg/dL (8.4-10.2); Carbon Dioxide 34 mmol/L (22-29); Chloride 100 mmol/L (96-108); Creatinine Clr Calc Pharmacy 44.7; Estimated Glomerular Filt Rate 56; Glucose Random 107 mg/dL (60-115); Lipase 27 U/L (8-78); Potassium 3.6 mmol/L (3.3-5.1); Sodium 139 mmol/L (135-145); Total Protein 6.6 g/dL (6.5-8.0)
[2021-03-04] MEDS: iohexoL 350 MG/ML 100 ML INFUS..BTL IV (10:51)
--- NOTE | 2021-03-04 10:58 | PHA.MEDREC ---
Pharmacy Consult ? Medication Reconciliation Pharmacy has completed the medication reconciliation. Patient reports he does not know the names of the medications he takes. Most medications on claim history were up-to-date. Contacted MD's office where they informed me that patient needs to schedule a new appointment however they did send a medication list that the patient should currently be on. Velma Berger, ChenD
[2021-03-04 11:02] LABS: Reflex Lactate? Lactic Acid Added
--- NOTE | 2021-03-04 12:08 | P.HPHOSP_ITS ---
History of Present Illness Date of Service: 03/04/21 Chief Complaint: dizziness This is a 68-year-old male with a past medical history of throat cancer status post radiation and chemo with resultant esophageal stricture who presents to the hospital complaints of dizziness and brief loss of consciousness this morning. Patient reports that he dropped his off at short-stay surgery and he felt very dizzy and fainted . he denies any preceding chest pain or palpitations. He denies any shortness of breath or cough. He does endorse that over the last 2 days he has had significant nose bleed which has now subsided. Upon further questioning, the patient also endorses that he has had trouble swallowing, more so than his baseline. ( he typically eats only liquid diet due to his known esophageal stricture). he reports that he generally is able to swallow his pills but he has had difficulty with this. He denies any rectal bleeding or denies any hematemesis. He denies any abdominal pain. Upon arrival to the emergency room he was noted to be profoundly hypotensive with blood pressures in the 60s. A CBC was checked which showed hemoglobin of around 7, baseline is around 10. he was given a fluid bolus and transfuse 1 unit of packed red cells and admission was requested. Review of Systems Review of Systems: General - denies fevers or chills, + weakness or fatigue HEENT -denies blurred vision, denies headache, denies sore throat, +epistaxis Cardiovascular - denies chest pain or palpitations, denies edema, +dizzine ss/syncope Respiratory - denies shortness of breath, coughing, wheezing Gastrointestinal - denies abdominal pain, nausea, vomiting, diarrhea, no GI bleeding reported - denies flank pain, denies dysuria, denies frequency or urgency Musculoskeletal - denies back pain, denies hip pain, denies knee pain, denies shoulder pain Neurological - denies any focal weakness or numbness Skin, denies any bruising or redness Psychiatric - denies any suicidal ideation, hallucinations, homicidal ideation Endocrinology - denies intolerance to hot / cold temperatures [facility] Medical History Anemia Aortic aneurysm Arthritis Back pain Cancer COPD (chronic obstructive pulmonary disease) Depression Difficulty swallowing Elevated cholesterol GERD (gastroesophageal reflux disease) History of chemotherapy HTN (hypertension) Hx of radiation therapy Osteoarthritis of left shoulder Pulmonary nodule Thyroid disease Family History Father Brain cancer Mother CVD (cardiovascular disease) Maternal Aunt Diabetes Surgical History H/O colonoscopy History of back surgery History of esophagogastroduodenoscopy (EGD) Social History Alcohol intake: never Cigarette Packs Per Day: 2 Cigarettes Per Day: 40.0 Years Smoked: 25 Smoked in Last 30 Days: No Use of substances other than those prescribed or required for medical reasons: No Advance Directives: Yes Advance Directives Information Provided: Yes Advance Directives on File: No Meds Allergies Allergy/AdvReac Type Severity Reaction Status Date / Time Penicillins Allergy Rash Verified 12/12/20 13:05 aspirin [ASA] AdvReac Intermediate GI BLEED, Verified 12/12/20 13:05 Headaches Active Medications: Current Medications Generic Name Dose Route Start Last Admin Trade Name Freq PRN Reason Stop Dose Admin Pharmacy Consult 1 each 03/04/21 09:01 Consult Rx Perform Med Rec MISCELLANE ONCE PRN Consult order Home Medications Medication Instructions Recorded Confirmed Last Taken Type atorvastatin 1 tab PO BEDTIME 06/21/20 03/04/21 Unknown History cyanocobalamin (vitamin B-12) 1 tab PO DAILY 06/21/20 03/04/21 Unknown History [Vitamin B-12] duloxetine 30 mg PO DAILY 06/21/20 03/04/21 03/04/21 History duloxetine 60 mg PO DAILY 06/21/20 03/04/21 03/04/21 History ferrous sulfate [Iron (ferrous 325 mg PO DAILY 06/21/20 03/04/21 Unknown History sulfate)] nitroglycerin 1 tab SUBLINGUAL NEEDED PRN 06/21/20 03/04/21 Unknown History omeprazole 40 mg PO DAILY 06/21/20 03/04/21 Unknown History tizanidine 1 cap PO TID 06/21/20 03/04/21 Unknown History umeclidinium-vilanterol [Anoro 1 inh INHALATION DAILY 06/21/20 03/04/21 Unknown History Ellipta] fluticasone propionate 110 2 inh INHALATION BID 09/28/20 03/04/21 Unknown History mcg/actuation HFA aerosol inhaler meclizine 25 mg tablet 25 mg PO Q8H PRN 09/28/20 03/04/21 Unknown History naproxen 500 mg tablet 500 mg PO BID 09/28/20 03/04/21 Unknown History artifi.tears(hypromellose)(PF) 1 drp OPHTHALMIC (EYE) BID PRN 03/04/21 03/04/21 Unknown History capsaicin-menthol [Salonpas 1 patch TOPICAL TID 03/04/21 03/04/21 Unknown History (capsaicin-menthol)] fluticasone propionate 1 spray INTRANASAL DAILY 03/04/21 03/04/21 Unknown H istory gabapentin 1 cap PO TID 03/04/21 03/04/21 Unknown History levocetirizine 1 tab PO QPM 03/04/21 03/04/21 Unknown History levothyroxine 1 tab PO DAILY 03/04/21 03/04/21 Unknown History losartan 1 tab PO DAILY 03/04/21 03/04/21 Unknown History tizanidine 1 tab PO BEDTIME 03/04/21 03/04/21 Unknown History triamcinolone acetonide 1 appl TOPICAL BID 03/04/21 03/04/21 Unknown History Physical Exam Vital Signs and Narrative: Vital Signs: Last Vital Signs Temp 97.6 F 03/04/21 11:39 Pulse 79 03/04/21 11:39 Resp 14 03/04/21 11:39 BP 132/70 03/04/21 11:39 Pulse Ox 97 03/04/21 11:07 Body Mass Index 20.3 Const: Other: Constitutional - Awake and Alert, No apparent distress Eyes - PERRLA, EOMI Cardiovascular - S1S2, RRR, No edema Respiratory - Normal lung expansion, Normal respiratory effort, No respiratory distress, CTA bilaterally Gastrointestinal - NT / ND; +BS; No rebound or guarding - No CVA tenderness Extremities - no calf tenderness bilaterally, no swelling Musculoskeletal - Normal inspection, normal ROM Skin - Warm/Dry Neurological - Alert & oriented x3, No focal deficit Psychological - Appropriate affect Results Labs CBC and Chem 7: 03/04/21 08:54 03/04/21 08:54 Labs: Laboratory Results - last 24 hr 03/04/21 03/04/21 03/04/21 08:53 08:53 08:54 MCV 95.1 MCH 30.4 MCHC 31.9 RDW 15.9 Plt Count 259 MPV 10.4 Immature Gran % (Auto) 0.5 H Neut % (Auto) 73.8 H Lymph % (Auto) 9.9 L [place] % (Auto) 13.0 H Eos % (Auto) 2.3 Baso % (Auto) 0.5 Lymph # (Auto) 0.6 L [place] # (Auto) 0.8 Eos # (Auto) 0.2 Baso # (Auto) 0.0 Abs Immat Gran (auto) 0.03 Absolute Neuts (auto) 4.7 Absolute Nucleated RBC 0.000 Nucleated RBC % (auto) 0.0 PT INR Anion Gap Estim Creat Clear Calc Estimated GFR Random Glucose Lactic Acid 2.1 H* Calcium Total Bilirubin Direct Bilirubin AST ALT Alkaline Phosphatase Troponin I High Sens 8.0 Total Protein Albumin Lipase Stool Occult Blood Blood Type Antibody Screen Crossmatch 03/04/21 03/04/21 03/04/21 08:54 08:54 09:23 MCV MCH MCHC RDW Plt Count MPV Immature Gran % (Auto) Neut % (Auto) Lymph % (Auto) [place] % (Auto) Eos % (Auto) Baso % (Auto) Lymph # (Auto) [place] # (Auto) Eos # (Auto) Baso # (Auto) Abs Immat Gran (auto) Absolute Neuts (auto) Absolute Nucleated RBC Nucleated RBC % (auto) PT 11.8 INR 1.0 Anion Gap 9 L Estim Creat Clear Calc 44.7 Estimated GFR 56 Random Glucose 107 Lactic Acid Calcium 9.5 Total Bilirubin 0.3 Direct Bilirubin < 0.2 AST 23 ALT 12 Alkaline Phosphatase 86 Troponin I High Sens Total Protein 6.6 Albumin 3.8 Lipase 27 Stool Occult Blood NEGATIVE Blood Type Antibody Screen Crossmatch 03/04/21 09:34 MCV MCH MCHC RDW Plt Count MPV Immature Gran % (Auto) Neut % (Auto) Lymph % (Auto) [place] % (Auto) Eos % (Auto) Baso % (Auto) Lymph # (Auto) [place] # (Auto) Eos # (Auto) Baso # (Auto) Abs Immat Gran (auto) Absolute Neuts (auto) Absolute Nucleated RBC Nucleated RBC % (auto) PT INR Anion Gap Estim Creat Clear Calc Estimated GFR Random Glucose Lactic Acid Calcium Total Bilirubin Direct Bilirubin AST ALT Alkaline Phosphatase Troponin I High Sens Total Protein Albumin Lipase Stool Occult Blood Blood Type O Positive Antibody Screen NEGATIVE Crossmatch See Detail Imaging Radiologist's Impressions: Impressions Chest X-Ray 03/04/21 08:19 IMPRESSION: Unremarkable chest exam Head CT 03/04/21 08:47 IMPRESSION: No acute intracranial process seen. Mild mucoperiosteal thickening ethmoid and sphenoid sinuses noted. No acute abnormality seen in the soft tissues of the neck. Nonspecific mild thickening of the mucosal space involving the epiglottis and the laryngeal area. No focal enhancing mass, abnormal lymphadenopathy seen. No fat visualized in the prevertebral and retropharyngeal soft tissues likely secondary to radiation changes. There is bilateral apical parenchymal chronic scarring likely post radiation changes. Soft Tissue Neck CT 03/04/21 08:47 IMPRESSION: No acute intracranial process seen. Mild mucoperiosteal thickening ethmoid and sphenoid sinuses noted. No acute abnormality seen in the soft tissues of the neck. Nonspecific mild thickening of the mucosal space involving the epiglottis and the laryngeal area. No focal enhancing mass, abnormal lymphadenopathy seen. No fat visualized in the prevertebral and retropharyngeal soft tissues likely secondary to radiation changes. There is bilateral apical parenchymal chronic scarring likely post radiation changes. Assessment and Plan (1) Anemia: Status: Acute This is a 70 yo M with a PMH of throat cancer s/p chemo / radiation with resultant esophageal stricture who presents to the hospital after a syncopal episode, likely secondary to hypovoluemia from acute blood loss anemia from epistaxis. 1. Acute Blood Loss anemia / symptomatic anemia suspected secondary to epistasix. FOBT negative, he denies any bright red blood per rectum or melena. s/p 1 unit PRBC check h/h this afternoon Given 1.7L IVF, hold off further fluids at this time 2. Syncope due to above, from hypovoluemia 3. Dysphagia likely from esophageal stricture. Usually able to tolerate liquid diet + pills, now difficulty with pills. will get GI input 4. HTN hold antihypertensives 5. GERD PPI continue his other baseline meds Full Code DVT pptx, mechanical due to acute blood loss anemia. Quality Stroke Does the patient have a stroke diagnosis?: No VTE Prior VTE?: No VTE Risk Level:: Medical - moderate - high VTE Device Contraindication: N/A - Device Ordered VTE Drug Contraindication: Treatment Not Indicated (acute blood loss)
[2021-03-04 12:19] LABS: Glucose Urine UA NEG (NEG); Leukocyte Esterase Urine NEG (NEG); Nitrite Urine NEG (NEG); Specific Gravity - Urine <= 1.005 (1.005-1.025); Urine Blood NEG (NEG); Urine Ketones NEG (NEG); Urine Protein NEG (NEG-TRACE)
[2021-03-04 12:23] LABS: Appearance Urine CLEAR; Color Urine YELLOW
[2021-03-04 12:33] LABS: ~Lactic Acid-LAB USE ONLY 1.5 mmol/L (0.5-2.0)
--- NOTE | 2021-03-04 14:58 | PC.NURSE ---
CALL TO GIVE REPORT- NO ANSWER THEY ARE IN REPORT
[2021-03-04 16:01] LABS: Magnesium 2.4 mg/dL (1.6-2.6)
[2021-03-04 16:32] LABS: Hematocrit 25.2 % (42-52); Hemoglobin 8.2 g/dl (14.0-18.0)
--- NOTE | 2021-03-04 16:46 | PM.GICN ---
History of Present Illness Data of Consult Service Date: 03/04/21 Requesting physician: Aleksandar Montes Primary Care Provider: Tracy Oneill MD HPI Reason for consult: worsening dysphagia, known history of esophageal stricture 70-year-old male with known hx of XRT induced esophageal stricture presented to [facility] this morning after a syncopal episode: HPI narrative: 70-year-old male with a past medical history of throat cancer status post radiation 2002, chronic dysphagia 2/2 stricture with serial dilations (last 06/[address] Vila), chronic low back pain, osteoarthritis here with complaints of syncope. The patient tells me he dropped his off at short-stay surgery this morning and while he was walking out to the parking lot he started to feel very dizzy and fainted . he tells me has a history of this happening before and it was from low blood pressure. He on arrival to the emergency department is alert and oriented. He is complaining of feeling and dizzy. He tells me he has had a 60 lb weight loss over the course of the last 20yrs d/t chronic dysphagia after his radiation for throat cancer. He tells me that it has been recommended that he have a G-tube placed but he refused this. he drinks Ensure daily and can tolerate most liquids but has had increasingly difficult time with pureed and soft foods as well as swallow his pills over the last 1-2 months. He denies any shortness of breath. He does have a chronic cough and has known pulmonary nodules and is followed by pulmonology for this. He denies any chest pain, abdominal pain, vomiting, diarrhea, headache or neck pain. Course Narrative: 70-year-old male here with complaints of dizziness, syncopal episode which occurred today in the parking lot. On arrival the patient is alert and oriented. He is noted to be hypotensive with a blood pressure of 70/30. He tells me his normal blood pressure is around 90 systolic. He does run low and has a history of syncope. He tells me that he has chronic dysphagia and is only able to tolerate and sugar and liquids. He was able to tolerate pureed food and his medications but over the last 1-2 menses had difficulty with these. It has been recommended that he have a G-tube but he declined this. He does endorse that over the last 2 days he has had significant nose bleed which has now subsided. Hypotension due to dehydration with poor p.o. intake and not from infection. Normal saline bolus ordered 0925- patient baseline hemoglobin around 10. Today hemoglobin 7.5. hematocrit 23.5. denies any black or bloody stools. He did have a bad nosebleed several days ago. Denies any current NSAID use. history of GI bleed secondary to this previously. type and screen ordered. due to hypotension with decrease in hemoglobin will consent patient for 1 unit of PRBC. BP improved 130 systolic now and patient feeling improved. initial troponin mildly elevated. No EKG changes or chest pain. Plan for repeat 3 hour troponin. All other labs reviewed and are unremarkable. Discussed with Dr. Montes who accepted admission to hospital. Patient complains of worsening dysphagia over the past 6 months. he was able to take a full liquid diet and mashed potatoes in past. He has been having trouble drinking liquids, jello and taking his pills with significant wt loss from 198 to 141 lbs He denies fever, chills or sweating He admits to significant epistaxis yesterday. H & H has been stable post transfusion of 1 unit of PRBCs. IMAGING STUDIES: CT head negative. CT neck w/ IV contrast No acute abnormality seen in the soft tissues of the neck. Nonspecific mild thickening of the mucosal space involving the epiglottis and the laryngeal area. No focal enhancing mass, abnormal lymphadenopathy seen. No fat visualized in the prevertebral and retropharyngeal soft tissues likely secondary to radiation changes. There is bilateral apical parenchymal chronic scarring likely post radiation changes. ENDOSCOPIC STUDIES: 06/27/20 EGD WAS FORMED BY DR. VILA: Esophagus: GE junction at 40 cm, diaphragm hiatus at 40 cm, salmon pink mucosa noted consistent with barretts esophagus about 4-5 cm in length Stricture noted at 25 cm and also tight upper esophageal sphincter. A 0.035 in biliary wire was placed and then a balloon directed over the strictured areas. under direct endoscopic visualization the ballon was dilated to max 8 mm, minor amount of oozing noted. Stomach: normal. Grade 2 flap valve on retroflexed examination of the cardia. 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 avoid nsaids for 1 week, can use tylenol for pain if needed PAST GI HISTORY BY REVIEW OF MEDICAL RECORDS: 09/[address] Vila and was tolerating a liquid diet. Review of Systems Constitutional: Constitutional: Reports fatigue, Denies fever(s), Denies headache(s), Reports malaise, Reports weakness and Denies weight loss Eyes: Eyes: Denies eye discharge and Denies irritation ENT: Reports Normal hearing present, Reports dysphagia, Denies dizziness, Denies headache(s) and Reports epistaxis Cardiovascular: Cardiovascular: Denies chest pain, Reports syncope, Denies leg edema and Denies dyspnea on exertion Respiratory: Respiratory: Denies cough, Denies dyspnea on exertion and Denies wheezing Gastrointestinal: Gastrointestinal: Denies abdominal pain, Denies change in bowel habits, Reports dysphagia and Denies heartburn Genitourinary: Genitourinary: Denies dysuria Musculoskeletal: Musculoskeletal: Denies back pain and Denies arthralgias Integumentary/Breasts: Skin/Breast: Denies pruritus, Denies rash and Denies jaundice Neurologic: Reports Normal hearing present, Denies Abnormal speech present, Denies dizziness, Reports syncope, Denies headache(s), Denies seizure-like activity, Reports weakness and Reports other ( Dizziness) Psychiatric: Psychiatric: Denies anxiety, Denies depression and Denies panic attacks Endocrine: Endocrine: Denies cold intolerance, Reports fatigue, Denies flushing and Denies heat intolerance Hematologic/Lymphatic: Hematologic/Lymphatic: Denies easy bleeding and Denies easy bruising Allergic/Immunologic: Allergic/Immunologic: Denies wheezing PMFSH Past Medical History Medical History Anemia Aortic aneurysm Arthritis Back pain Cancer COPD (chronic obstructive pulmonary disease) Depression Difficulty swallowing Elevated cholesterol GERD (gastroesophageal reflux disease) History of chemotherapy HTN (hypertension) Hx of radiation therapy Osteoarthritis of left shoulder Pulmonary nodule Thyroid disease Family History Family History Father Brain cancer Mother CVD (cardiovascular disease) Maternal Aunt Diabetes Surgical History Surgical History H/O colonoscopy History of back surgery History of esophagogastroduodenoscopy (EGD) Social History Social History Household Members: Spouse and Children Household Members Other:: 3 Housing: Apartment Do you presently have visiting nurse or other home services: Yes Alcohol intake: never Patient Tobacco Use Status: Former Tobacco user Quit Date: 30 yrs ago Tobacco use type: Cigarette Cigarette Packs Per Day: 3 Cigarettes Per Day: 60.0 Years Smoked: 25 e-Cigarette/Vaping Use: Never Used Second Hand Smoke Exposure: No Advance Directives Date on File: 03/04/21 service: No Current occupational status: disabled Meds Allergies Allergy/AdvReac Type Severity Reaction Status Date / Time Penicillins Allergy Rash Verified 06/04/21 13:30 aspirin [ASA] AdvReac Intermediate GI BLEED, Verified 06/04/21 13:30 Headaches Active Medications: Current Medications Generic Name Dose Route Start Last Admin Trade Name Freq PRN Reason Stop Dose Admin Cyanocobalamin 1,000 mcg 03/05/21 09:00 Cyanocobalamin (Vitamin B-12) 1,000 Mcg Tablet PO DAILY [facility] Duloxetine HCl 90 mg 03/05/21 09:00 Duloxetine Hcl 30 Mg Capsule.Dr PO DAILY [facility] Fluticasone Propionate 2 puff 03/04/21 20:00 Fluticasone Propionate 100 Mcg Blst.W.Dev INHALE RBID [facility] Gabapentin 400 mg 03/04/21 15:15 Gabapentin 400 Mg Capsule PO TID [facility] Levothyroxine Sodium 75 mcg 03/05/21 06:30 Levothyroxine Sodium 75 Mcg Tablet PO DAILY@0630 [facility] Ondansetron HCl 4 mg 03/04/21 15:15 Ondansetron Hcl 4 Mg/2 Ml Vial IVPUSH Q8H PRN Nausea and Vomiting Pharmacy Consult 1 each 03/04/21 09:01 Consult Rx Perform Med Rec MISCELLANE ONCE PRN Consult order Sodium Chloride 3 ml 03/04/21 16:00 0.9 % Sodium Chloride Flush 3 Ml Syringe IVFLUSH QSHIFT [facility] Tizanidine HCl 4 mg 03/04/21 21:00 Tizanidine Hcl 4 Mg Tablet PO BEDTIME [facility] Tizanidine HCl 2 mg 03/04/21 15:30 Tizanidine Hcl 4 Mg Tablet PO TID [facility] Home Medications Medication Instructions Recorded Confirmed Last Taken Type cyanocobalamin (vitamin B-12) 1 tab PO DAILY 06/21/20 06/04/21 Unknown History 1,000 mcg tablet (Vitamin B-12) duloxetine 30 mg capsule,delayed 30 mg PO DAILY 06/21/20 06/04/21 03/04/21 History release duloxetine 60 mg capsule,delayed 60 mg PO DAILY 06/21/20 06/04/21 03/04/21 History release ferrous sulfate 325 mg (65 mg 325 mg PO DAILY 06/21/20 06/04/21 Unknown History iron) tablet (Iron (ferrous sulfate)) nitroglycerin 0.4 mg sublingual 1 tab SUBLINGUAL NEEDED PRN 06/21/20 06/04/21 Unknown History tablet omeprazole 40 mg capsule,delayed 40 mg PO DAILY 06/21/20 03/20/21 Unknown History release umeclidinium 62.5 mcg-vilanterol 1 inh INHALATION DAILY 06/21/20 03/20/21 Unknown History 25 mcg/actuation powdr for inhalation (Anoro Ellipta) fluticasone propionate 110 2 inh INHALATION BID 09/28/20 06/04/21 Unknown History mcg/actuation HFA aerosol inhaler meclizine 25 mg tablet 25 mg PO Q8H PRN 09/28/20 06/04/21 Unknown History naproxen 500 mg tablet 500 mg PO BID 09/28/20 06/04/21 Unknown History artifi.tears(hypromellose)(PF) 0.3 1 drp OPHTHALMIC (EYE) BID PRN 03/04/21 06/04/21 Unknown History % eye drops capsaicin-menthol 0.025 %-1.25 % 1 patch TOPICAL TID 03/04/21 06/04/21 Unknown History topical patch (Salonpas (capsaicin-menthol)) gabapentin 400 mg capsule 1 cap PO TID 03/04/21 06/04/21 Unknown History levothyroxine 75 mcg tablet 1 tab PO DAILY 03/04/21 06/04/21 Unknown History losartan 50 mg tablet 1 tab PO DAILY 03/04/21 06/04/21 Unknown History tizanidine 4 mg tablet 1 tab PO BEDTIME 03/04/21 03/20/21 Unknown History triamcinolone acetonide 0.5 % 1 appl TOPICAL BID 03/04/21 03/20/21 Unknown History topical cream acetaminophen 500 mg tablet 500 mg PO TID PRN 05/14/21 06/04/21 Unknown History atorvastatin 80 mg tablet 80 mg PO BEDTIME 06/04/21 06/04/21 Unknown History Physical Exam Vital Signs: Vital Signs: Last Vital Signs Temp 99.1 F 03/04/21 14:25 Pulse 88 03/04/21 14:25 Resp 18 03/04/21 14:25 BP 114/75 03/04/21 14:25 Pulse Ox 96 03/04/21 14:25 Body Mass Index 22.1 Const: General: no acute distress and ill appearing Nutritional Appearance: average body habitus and thin Orientation/consciousness: patient oriented x3 Limitations: no limitations HENMT: Head: Yes normal to inspection Ears: hearing grossly normal bilaterally Mouth: Normal oral and palatal mucosa present Eyes: Sclerae: sclerae normal Pupils: Equal, round and reactive pupils present Chest: Chest palpation & inspection: normal inspection of the chest Resp: Effort & Inspection: normal respiratory effort Auscultation: clear to auscultation bilaterally Cardio: Palpation: normal PMI Rate: regular rate Rhythm: regular rhythm Heart sounds: S1 normal heart sound present, S2 normal heart sound present and no murmurs GI: Palpation (GI): Soft to palpation, nontender and No hepatosplenomegaly present Auscultation: normal bowel sounds Rectal Exam - Male: Yes deferred Skin: General skin exam: no rashes or lesions noted Neuro: General: patient oriented x3, gait normal and moves all extremities Cranial nerves: Yes Equal, round and reactive pupils present and Yes Normal hearing present Speech: No Abnormal speech present Psych: Appearance: grossly normal Mental Status: mental status grossly normal Results Labs CBC & Chem 7: 03/06/21 05:13 03/05/21 05:17 Labs: Short CBC 03/04/21 03/04/21 Range/Units 08:54 16:25 WBC 6.4 (4.8-10.8) X10*3/uL Hgb 7.5 L 8.2 L (14.0-18.0) g/dl Hct 23.5 L 25.2 L (42-52) % Plt Count 259 (160-400) X10*3/uL BMP 03/04/21 08:54 Sodium 139 Potassium 3.6 Chloride 100 Carbon Dioxide 34 H BUN 20 H Creatinine 1.28 Calcium 9.5 Liver Function 03/04/21 Range/Units 08:54 Total Bilirubin 0.3 (0.0-1.0) mg/dL Direct Bilirubin < 0.2 (0.0-0.5) mg/dL AST 23 (5-37) U/L ALT 12 (0-40) U/L Alkaline Phosphatase 86 (39-117) U/L Albumin 3.8 (3.5-5.0) g/dL Urine 03/04/21 Range/Units 11:54 Urine Color YELLOW Urine Appearance CLEAR Urine pH 7.0 (5.0-8.0) Ur Specific [place] <= 1.005 (1.005-1.025) Urine Protein NEG (NEG-TRACE) MG/DL Urine Glucose (UA) NEG (NEG) MG/DL Assessment and Plan (1) Dysphagia: Status: Acute (2) Anemia: Status: Acute 70-year-old male with a past medical history of throat cancer status post radiation 2002, chronic dysphagia 2/2 stricture with serial dilations (last 06/[address] Vila), chronic low back pain, osteoarthritis here with complaints of syncope. Worsening dysphagia is likely due to progressive narrowing of Esophageal stricture. Anemia likely a combination of nutritional deficiency related to decreased PO intake and episode of epistaxis yesterday. RECOMMENDATIONS: 1. Monitor H & H daily 2. IV Fluids overnight to prevent dehydration since patient's PO intake is reduced 3. Pt placed on OR add on list for tomorrow for repeat EGD with dilation with Dr Vila. Procedures Date of Service Date of Service: 03/04/21
[2021-03-04] MEDS: 0.9 % Sodium Chloride Flush 3 ML SYRINGE IVFLUSH (17:03)
[2021-03-04] MEDS: 0.9 % Sodium Chloride 1,000 ML 50 ML IVCONT (17:48)
[2021-03-04] MEDS: Fluticasone Propionate 100 MCG BLST.W.DEV 2 PUFF INHALE (20:43)
[2021-03-04] MEDS: Lidocaine 4 % Patch ADH..PATCH 1 PATCH TRANSDERMA (23:34)
[2021-03-05] VITALS (17 sets, daily range): BP systolic 124–179; BP diastolic 69–94; PULSE 81–98; RESP 16–20; TEMP 36.1–37.5; O2SAT 96–100
[2021-03-05 06:42] LABS: Hematocrit 26.5 % (42-52); Hemoglobin 8.5 g/dl (14.0-18.0); Mean Corpuscular HGB Conc 32.1 g/dl (31.0-36.0); Mean Corpuscular Hemoglobin 29.6 pg (27.0-33.0); Mean Corpuscular Volume 92.3 fL (80-98); Mean Platelet Volume 10.2 fL (9.4-12.4); Platelet Count 269 X10*3/uL (160-400); Red Blood Count 2.87 X10*6/uL (4.60-5.80); White Blood Count 5.9 X10*3/uL (4.8-10.8)
[2021-03-05 06:58] LABS: Anion Gap 9 (12-20); Blood Urea Nitrogen 11 mg/dL (9-16); Calcium 8.3 mg/dL (8.4-10.2); Carbon Dioxide 29 mmol/L (22-29); Chloride 107 mmol/L (96-108); Creatinine Clr Calc Pharmacy 77.1; Estimated Glomerular Filt Rate > 60; Glucose Random 89 mg/dL (60-115); Potassium 4.1 mmol/L (3.3-5.1); Sodium 141 mmol/L (135-145)
[2021-03-05] MEDS: Lidocaine 4 % Patch ADH..PATCH 1 PATCH TRANSDERMA (07:28)
[2021-03-05] MEDS: Fluticasone Propionate 100 MCG BLST.W.DEV 2 PUFF INHALE ×2 (07:36→20:19)
--- NOTE | 2021-03-05 09:16 | MHC.CM.PN ---
CM met with Patient at bedside and addressed IMM, providing him with the original and placing a copy on the chart. Patient lives in an apartment with his and his goal for dc is to return home/resume [employer] services (6 hours/week) VS STR pending PT eval. CM has initiated and will follow for dc planning. Patient used no DME LENDING ADVISOR and is S/P Chemo r/t Throat CA. HCP is Patient's Daughter/Meredith at [phone] Tracy Oneill.
--- NOTE | 2021-03-05 11:07 | MHC.CLN ---
RE: CONSULT FOR DIFFICULTY SWALLOWING DEFERRED TO [employer] [employer]
[2021-03-05 11:11] LABS: COVID-19 Test Negative (Negative)
[2021-03-05] MEDS: Lactated Ringers 1,000 ML 50 ML IVCONT (13:29)
--- NOTE | 2021-03-05 13:30 | MHC.SHP ---
Pre-Procedural Eval Section A Date of Service: 03/05/21 The patient is an INPATIENT: Yes The History & Physical has been completed within 30 days and I have reviewed it.: Yes Section B Chief Complaint: acute blood loss anemia Allergies: Allergies Allergy/AdvReac Type Severity Reaction Status Date / Time Penicillins Allergy Rash Verified 12/12/20 13:05 aspirin [ASA] AdvReac Intermediate GI BLEED, Verified 12/12/20 13:05 Headaches Plan Diagnosis/Plan: Unchanged I have reviewed the history and physical and performed a pertinent physical examination on my patient. No changes have occurred unless specified.
--- NOTE | 2021-03-05 13:32 | HO.ANESPROP2 ---
HPI - Anesthesia Eval Consult details Narrative: known to be a difficult airway but Grade 1 view with Mac 3 during the last anesthetic. denies MARILYN. endorses exerctional CP in recent weeks but trop flat, EKG unremarkable. [facility] Active Problems Active Problems: All Active Problems (Updated 03/04/21 @ 11:45 by Lianne Grimaldo NP) Syncope due to orthostatic hypotension (Acute) Acute hypotension (Acute) Anemia (Acute) Pulmonary nodules (Acute) Dyspnea (Acute) Pulmonary fibrosis (Acute) Low back pain (Acute) Dysphagia (Acute) Primary osteoarthritis of left knee (Acute) Osteoarthritis of left shoulder (Acute) Past Medical History Medical History Anemia Aortic aneurysm Arthritis Back pain Cancer COPD (chronic obstructive pulmonary disease) Depression Difficulty swallowing Elevated cholesterol GERD (gastroesophageal reflux disease) History of chemotherapy HTN (hypertension) Hx of radiation therapy Osteoarthritis of left shoulder Pulmonary nodule Thyroid disease Family History Family History Father Brain cancer Mother CVD (cardiovascular disease) Maternal Aunt Diabetes Surgical History Surgical History H/O colonoscopy History of back surgery History of esophagogastroduodenoscopy (EGD) History of Problems with Anesthesia: No Social History Social History Household Members: Spouse and Children Household Members Other:: 3 Housing: Apartment Do you presently have visiting nurse or other home services: Yes Alcohol intake: never Patient Tobacco Use Status: Former Tobacco user Quit Date: 30 yrs ago Tobacco use type: Cigarette Cigarette Packs Per Day: 3 Cigarettes Per Day: 60.0 Years Smoked: 25 Smoked in Last 30 Days: No e-Cigarette/Vaping Use: Never Used Patient Interested in Nicotine Replacement: Yes Second Hand Smoke Exposure: No Use of substances other than those prescribed or required for medical reasons: No Currently Displaying Signs/Symptoms of Drug Intoxication Withdrawal: No Any prior treatment program specific to substance use: No Have you been hit, kicked, punched, or otherwise hurt by someone within the past year? If so, by whom?: No Do you feel safe in your current relationship?: Yes Is there a partner from a previous relationship who is making you feel unsafe now?: No Are you made to feel afraid or neglected: No [employer] Healthcare Practices: [facility] Are you DNR?: No Advance Directives: Yes Advance Directives Information Provided: Yes Advance Directives on File: No Advance Directives Date on File: 03/04/21 Do you have thoughts of harming others: None Do you have a plan to hurt others: No Plan Recently lost weight without trying: Yes How much weight loss: 2-13 pounds Eating poorly because of decreased appetite: No Nutrition screen score: 3 Nutrition Risks: Difficulty swallowing Poor oral hygiene: No service: No Current occupational status: disabled Meds Allergies Allergy/AdvReac Type Severity Reaction Status Date / Time Penicillins Allergy Rash Verified 12/12/20 13:05 aspirin [ASA] AdvReac Intermediate GI BLEED, Verified 12/12/20 13:05 Headaches Active Medications: Current Medications Generic Name Dose Route Start Last Admin Trade Name Freq PRN Reason Stop Dose Admin Artificial Tears 1 drop 03/04/21 17:35 Artificial Tears 15 Ml Drops EYE-BOTH BID PRN Dry Eyes Cyanocobalamin 1,000 mcg 03/05/21 09:00 03/05/21 07:15 Cyanocobalamin (Vitamin B-12) 1,000 Mcg Tablet PO Not Given DAILY FRANCK Duloxetine HCl 90 mg 03/05/21 09:00 03/05/21 07:15 Duloxetine Hcl 30 Mg Capsule.Dr PO Not Given DAILY FRANCK Fluticasone Propionate 2 puff 03/04/21 20:00 03/05/21 07:36 Fluticasone Propionate 100 Mcg Blst.W.Dev INHALE 2 puff RBID FRANCK Administration Gabapentin 400 mg 03/04/21 15:15 03/05/21 07:17 Gabapentin 400 Mg Capsule PO Not Given TID FRANCK Sodium Chloride 1,000 mls @ 50 mls/hr 03/04/21 17:30 03/04/21 17:48 Ns IVCONT 50 mls/hr .Q20H FRANCK Administration Lactated Ringer's 1,000 mls @ 50 mls/hr 03/05/21 13:30 03/05/21 13:29 Lr IVCONT 50 mls/hr .Q20H FRANCK Administration Levothyroxine Sodium 75 mcg 03/05/21 06:30 03/05/21 04:58 Levothyroxine Sodium 75 Mcg Tablet PO Not Given DAILY@0630 [facility] Lidocaine 1 patch 03/05/21 09:00 03/05/21 07:28 Lidocaine 4 % Patch Adh..Patch TRANSDERMA 1 patch DAILY [facility] Administration Protocol Ondansetron HCl 4 mg 03/04/21 15:15 Ondansetron Hcl 4 Mg/2 Ml Vial IVPUSH Q8H PRN Nausea and Vomiting Pharmacy Consult 1 each 03/04/21 09:01 Consult Rx Perform Med Rec MISCELLANE ONCE PRN Consult order Sodium Chloride 3 ml 03/04/21 16:00 03/05/21 07:15 0.9 % Sodium Chloride Flush 3 Ml Syringe IVFLUSH Not Given QSHIFT [facility] Tizanidine HCl 4 mg 03/04/21 21:00 03/04/21 21:56 Tizanidine Hcl 4 Mg Tablet PO Not Given BEDTIME [facility] Tizanidine HCl 2 mg 03/04/21 15:30 03/05/21 07:16 Tizanidine Hcl 4 Mg Tablet PO Not Given TID [facility] Home Medications Medication Instructions Recorded Confirmed Last Taken Type atorvastatin 1 tab PO BEDTIME 06/21/20 03/04/21 Unknown History cyanocobalamin (vitamin B-12) 1 tab PO DAILY 06/21/20 03/04/21 Unknown History [Vitamin B-12] duloxetine 30 mg PO DAILY 06/21/20 03/04/21 03/04/21 History duloxetine 60 mg PO DAILY 06/21/20 03/04/21 03/04/21 History ferrous sulfate [Iron (ferrous 325 mg PO DAILY 06/21/20 03/04/21 Unknown History sulfate)] nitroglycerin 1 tab SUBLINGUAL NEEDED PRN 06/21/20 03/04/21 Unknown History omeprazole 40 mg PO DAILY 06/21/20 03/04/21 Unknown History tizanidine 1 cap PO TID 06/21/20 03/04/21 Unknown History umeclidinium-vilanterol [Anoro 1 inh INHALATION DAILY 06/21/20 03/04/21 Unknown History Ellipta] fluticasone propionate 110 2 inh INHALATION BID 09/28/20 03/04/21 Unknown History mcg/actuation HFA aerosol inhaler meclizine 25 mg tablet 25 mg PO Q8H PRN 09/28/20 03/04/21 Unknown History naproxen 500 mg tablet 500 mg PO BID 09/28/20 03/04/21 Unknown History artifi.tears(hypromellose)(PF) 1 drp OPHTHALMIC (EYE) BID PRN 03/04/21 03/04/21 Unknown History capsaicin-menthol [Salonpas 1 patch TOPICAL TID 03/04/21 03/04/21 Unknown History (capsaicin-menthol)] fluticasone propionate 1 spray INTRANASAL DAILY 03/04/21 03/04/21 Unknown History gabapentin 1 cap PO TID 03/04/21 03/04/21 Unknown History levocetirizine 1 tab PO QPM 03/04/21 03/04/21 Unknown History levothyroxine 1 tab PO DAILY 03/04/21 03/04/21 Unknown History losartan 1 tab PO DAILY 03/04/21 03/04/21 Unknown History tizanidine 1 tab PO BEDTIME 03/04/21 03/04/21 Unknown History triamcinolone acetonide 1 appl TOPICAL BID 03/04/21 03/04/21 Unknown History Exam Exam Date and Time: March 05, 2021 1332 Height,Weight and Vital Signs: Height 5 ft 7 in Weight 141 lb 12.116 oz Last Vital Signs Temp 97.8 F 03/05/21 13:06 Pulse 91 03/05/21 13:06 Resp 18 03/05/21 13:06 BP 169/92 H 03/05/21 13:06 Pulse Ox 97 03/05/21 13:06 Pertinent Lab Results Pertinent Lab Results: Laboratory Tests 03/04/21 03/04/21 03/04/21 08:53 08:53 08:54 WBC 6.4 RBC 2.47 L Hgb 7.5 L Hct 23.5 L MCV 95.1 MCH 30.4 MCHC 31.9 RDW 15.9 Plt Count 259 MPV 10.4 Immature Gran % (Auto) 0.5 H Neut % (Auto) 73.8 H Lymph % (Auto) 9.9 L [place] % (Auto) 13.0 H Eos % (Auto) 2.3 Baso % (Auto) 0.5 Lymph # (Auto) 0.6 L [place] # (Auto) 0.8 Eos # (Auto) 0.2 Baso # (Auto) 0.0 Abs Immat Gran (auto) 0.03 Absolute Neuts (auto) 4.7 Absolute Nucleated RBC 0.000 Nucleated RBC % (auto) 0.0 PT INR Sodium Potassium Chloride Carbon Dioxide Anion Gap BUN Creatinine Estim Creat Clear Calc Estimated GFR Random Glucose Lactic Acid 2.1 H* Lactic Acid Fup @ 2Hr Calcium Magnesium Total Bilirubin Direct Bilirubin AST ALT Alkaline Phosphatase Troponin I High Sens 8.0 Total Protein Albumin Lipase Urine Color Urine Appearance Urine pH Ur Specific [place] Urine Protein Urine Glucose (UA) Urine Ketones Urine Blood Urine Nitrite Ur Leukocyte Esterase Stool Occult Blood COVID-19 (VIC) COVID-Contactually Blood Type Antibody Screen Crossmatch 03/04/21 03/04/21 03/04/21 08:54 08:54 09:23 WBC RBC Hgb Hct MCV MCH MCHC RDW Plt Count MPV Immature Gran % (Auto) Neut % (Auto) Lymph % (Auto) [place] % (Auto) Eos % (Auto) Baso % (Auto) Lymph # (Auto) [place] # (Auto) Eos # (Auto) Baso # (Auto) Abs Immat Gran (auto) Absolute Neuts (auto) Absolute Nucleated RBC Nucleated RBC % (auto) PT 11.8 INR 1.0 Sodium 139 Potassium 3.6 Chloride 100 Carbon Dioxide 34 H Anion Gap 9 L BUN 20 H Creatinine 1.28 Estim Creat Clear Calc 44.7 Estimated GFR 56 Random Glucose 107 Lactic Acid Lactic Acid Fup @ 2Hr Calcium 9.5 Magnesium 2.4 Total Bilirubin 0.3 Direct Bilirubin < 0.2 AST 23 ALT 12 Alkaline Phosphatase 86 Troponin I High Sens Total Protein 6.6 Albumin 3.8 Lipase 27 Urine Color Urine Appearance Urine pH Ur Specific [place] Urine Protein Urine Glucose (UA) Urine Ketones Urine Blood Urine Nitrite Ur Leukocyte Esterase Stool Occult Blood NEGATIVE COVID-19 (VIC) COVIDBid Nerd Blood Type Antibody Screen Crossmatch 03/04/21 03/04/21 03/04/21 09:34 11:54 12:07 WBC RBC Hgb Hct MCV MCH MCHC RDW Plt Count MPV Immature Gran % (Auto) Neut % (Auto) Lymph % (Auto) [place] % (Auto) Eos % (Auto) Baso % (Auto) Lymph # (Auto) [place] # (Auto) Eos # (Auto) Baso # (Auto) Abs Immat Gran (auto) Absolute Neuts (auto) Absolute Nucleated RBC Nucleated RBC % (auto) PT INR Sodium Potassium Chloride Carbon Dioxide Anion Gap BUN Creatinine Estim Creat Clear Calc Estimated GFR Random Glucose Lactic Acid Lactic Acid Fup @ 2Hr 1.5 Calcium Magnesium Total Bilirubin Direct Bilirubin AST ALT Alkaline Phosphatase Troponin I High Sens Total Protein Albumin Lipase Urine Color YELLOW Urine Appearance CLEAR Urine pH 7.0 Ur Specific [place] <= 1.005 Urine Protein NEG Urine Glucose (UA) NEG Urine Ketones NEG Urine Blood NEG Urine Nitrite NEG Ur Leukocyte Esterase NEG Stool Occult Blood COVID-19 (VIC) COVID-[place] Com Blood Type O Positive Antibody Screen NEGATIVE Crossmatch See Detail 03/04/21 03/05/21 03/05/21 16:25 05:17 05:17 WBC 5.9 RBC 2.87 L Hgb 8.2 L 8.5 L Hct 25.2 L 26.5 L MCV 92.3 MCH 29.6 MCHC 32.1 RDW 17.0 H Plt Count 269 MPV 10.2 Immature Gran % (Auto) Neut % (Auto) Lymph % (Auto) [place] % (Auto) Eos % (Auto) Baso % (Auto) Lymph # (Auto) [place] # (Auto) Eos # (Auto) Baso # (Auto) Abs Immat Gran (auto) Absolute Neuts (auto) Absolute Nucleated RBC 0.000 Nucleated RBC % (auto) 0.0 PT INR Sodium 141 Potassium 4.1 Chloride 107 Carbon Dioxide 29 Anion Gap 9 L BUN 11 Creatinine 0.81 Estim Creat Clear Calc 77.1 Estimated GFR > 60 Random Glucose 89 Lactic Acid Lactic Acid Fup @ 2Hr Calcium 8.3 L D Magnesium Total Bilirubin Direct Bilirubin AST ALT Alkaline Phosphatase Troponin I High Sens Total Protein Albumin Lipase Urine Color Urine Appearance Urine pH Ur Specific [place] Urine Protein Urine Glucose (UA) Urine Ketones Urine Blood Urine Nitrite Ur Leukocyte Esterase Stool Occult Blood COVID-19 (VIC) COVID-19 Ziipa Blood Type Antibody Screen Crossmatch 03/05/21 10:46 WBC RBC Hgb Hct MCV MCH MCHC RDW Plt Count MPV Immature Gran % (Auto) Neut % (Auto) Lymph % (Auto) [place] % (Auto) Eos % (Auto) Baso % (Auto) Lymph # (Auto) [place] # (Auto) Eos # (Auto) Baso # (Auto) Abs Immat Gran (auto) Absolute Neuts (auto) Absolute Nucleated RBC Nucleated RBC % (auto) PT INR Sodium Potassium Chloride Carbon Dioxide Anion Gap BUN Creatinine Estim Creat Clear Calc Estimated GFR Random Glucose Lactic Acid Lactic Acid Fup @ 2Hr Calcium Magnesium Total Bilirubin Direct Bilirubin AST ALT Alkaline Phosphatase Troponin I High Sens Total Protein Albumin Lipase Urine Color Urine Appearance Urine pH Ur Specific [place] Urine Protein Urine Glucose (UA) Urine Ketones Urine Blood Urine Nitrite Ur Leukocyte Esterase Stool Occult Blood COVID-19 (VIC) Negative COVID-19 Clin Com See Note Blood Type Antibody Screen Crossmatch Airway Mallampati Class: IV TM Dist: <=3cm Assessment and Plan Assessment Anesthesia Assessment: Anesthesia Plan Discussed and Chart Reviewed Final Anesthetic Review NPO: Yes ASA Class: III Final Preanesthetic Review: No Changes in Pt Med Stat, Meds/Allgs Chart Reviewed, Consent Obtained/Reviewed and Anes Risks/Benef Reviewed Patient Risk: High Procedure Risk: Low Anesthetic Plan Anesthetic Plan: GA Disposition: Standard PACU
--- NOTE | 2021-03-05 14:13 | P.BOP_ITS ---
Brief Operative Note Date of Service: 03/05/21 Pre-op diagnosis: dysphagia Post-op diagnosis: same Surgeon: Renard Payan MD Anesthesia: GETA Was an Metallurgical Engineering Technician used for this Procedure?: No Estimated blood loss (mL): 5 Pathology: none sent Condition: stable
--- NOTE | 2021-03-05 14:14 | W.PM.OPN ---
Operative Note Operative Note Date of Service: 03/05/21 Narrative: FLEXIBLE TRANSORAL UPPER GASTROINTESTINAL ENDOSCOPY UPPER ENDOSCOPY Consent: Indications for the procedure and potential complications of bleeding, perforation, reaction to medications and missed diagnosis were discussed with the patient and informed consent was obtained. Instrument: Olympus ultra slim scope Monitoring: Vital signs and clinical assessment, continuous EKG monitoring, Pulse oximetry, Carbon Dioxide monitoring and blood pressure monitoring were done throughout the procedure. Procedure: The patient was placed in the left lateral decubitis position and pre-procedure medications were administered and a bite block was placed. The endoscope was inserted into the mouth and advanced under direct vision to the third part of duodenum. A careful inspection was made as the upper endoscope was withdrawn including a retroflexed examination of the proximal stomach; Findings and interventions are described below. Findings: Larynx:normal Esophagus: GE junction at 40 cm, diaphragm hiatus at 40 cm, salmon pink mucosa noted consistent with barretts esophagus about 4-5 cm in length Stricture noted at 25 cm and also tight upper esophageal sphincter. Under direct endoscopic visualization a ballon was passed and dilated to max 10 mm, minor amount of oozing noted. Stomach: normal. Grade 2 flap valve on retroflexed examination of the cardia. 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 avoid nsaids for 1 week, can use tylenol for pain if needed
--- NOTE | 2021-03-05 14:31 | PM.IMPN ---
Subjective Subjective Date of Service: 03/05/21 Interval History: follow-up dysphagia and anemia some difficulty swallowing no pain Physical Exam Vital Signs: Vital Signs: Last Vital Signs Temp 97.8 F 03/05/21 13:06 Pulse 91 03/05/21 13:06 Resp 18 03/05/21 13:06 BP 169/92 H 03/05/21 13:06 Pulse Ox 97 03/05/21 13:06 Body Mass Index 22.1 Appearing in no acute distress lung sounds are clear to auscultation heart regular rate rhythm, clear S1, S2 positive bowel sounds, abdomen is soft, nontender neuro patient is alert x3, no focal deficits Objective Data Current Medications Generic Name Dose Route Start Last Admin Trade Name Freq PRN Reason Stop Dose Admin Artificial Tears 1 drop 03/04/21 17:35 Artificial Tears 15 Ml Drops EYE-BOTH BID PRN Dry Eyes Cyanocobalamin 1,000 mcg 03/05/21 09:00 03/05/21 07:15 Cyanocobalamin (Vitamin B-12) 1,000 Mcg Tablet PO Not Given DAILY FRANCK Duloxetine HCl 90 mg 03/05/21 09:00 03/05/21 07:15 Duloxetine Hcl 30 Mg Capsule.Dr PO Not Given DAILY FRANCK Fluticasone Propionate 2 puff 03/04/21 20:00 03/05/21 07:36 Fluticasone Propionate 100 Mcg Blst.W.Dev INHALE 2 puff RBID FRANCK Administration Gabapentin 400 mg 03/04/21 15:15 03/05/21 07:17 Gabapentin 400 Mg Capsule PO Not Given TID FRANCK Sodium Chloride 1,000 mls @ 50 mls/hr 03/04/21 17:30 03/04/21 17:48 Ns IVCONT 50 mls/hr .Q20H FRANCK Administration Lactated Ringer's 1,000 mls @ 50 mls/hr 03/05/21 13:30 03/05/21 13:29 Lr IVCONT 50 mls/hr .Q20H FRANCK Administration Levothyroxine Sodium 75 mcg 03/05/21 06:30 03/05/21 04:58 Levothyroxine Sodium 75 Mcg Tablet PO Not Given DAILY@0630 FRANCK Lidocaine 1 patch 03/05/21 09:00 03/05/21 07:28 Lidocaine 4 % Patch Adh..Patch TRANSDERMA 1 patch DAILY FRANCK Administration Protocol Ondansetron HCl 4 mg 03/04/21 15:15 Ondansetron Hcl 4 Mg/2 Ml Vial IVPUSH Q8H PRN Nausea and Vomiting Pharmacy Consult 1 each 03/04/21 09:01 Consult Rx Perform Med Rec MISCELLANE ONCE PRN Consult order Sodium Chloride 3 ml 03/04/21 16:00 03/05/21 07:15 0.9 % Sodium Chloride Flush 3 Ml Syringe IVFLUSH Not Given QSHIFT [facility] Tizanidine HCl 4 mg 03/04/21 21:00 03/04/21 21:56 Tizanidine Hcl 4 Mg Tablet PO Not Given BEDTIME [facility] Tizanidine HCl 2 mg 03/04/21 15:30 03/05/21 07:16 Tizanidine Hcl 4 Mg Tablet PO Not Given TID [facility] Labs CBC & Chem 7: 03/05/21 05:17 03/05/21 05:17 Labs: Laboratory Results - last 24 hr 03/04/21 03/05/21 03/05/21 08:54 05:17 05:17 MCV 92.3 MCH 29.6 MCHC 32.1 RDW 17.0 H Plt Count 269 MPV 10.2 Absolute Nucleated RBC 0.000 Nucleated RBC % (auto) 0.0 Anion Gap 9 L Estim Creat Clear Calc 77.1 Estimated GFR > 60 Random Glucose 89 Calcium 8.3 L D Magnesium 2.4 COVID-19 (VIC) COVID-19 Clin Com 03/05/21 10:46 MCV MCH MCHC RDW Plt Count MPV Absolute Nucleated RBC Nucleated RBC % (auto) Anion Gap Estim Creat Clear Calc Estimated GFR Random Glucose Calcium Magnesium COVID-19 (VIC) Negative COVID-19 Clin Com See Note Microbiology Microbiology Results: Microbiology 03/04/21 08:53 Blood - Venous Blood Culture - Preliminary No growth after 24 hours. 03/04/21 08:53 Blood - Venous Blood Culture - Preliminary No growth after 24 hours. Progress Note: A&P (1) Anemia: Status: Acute Assessment and Plan: This is a 70 yo M with a PMH of throat cancer s/p chemo / radiation with resultant esophageal stricture who presents to the hospital after a syncopal episode, likely secondary to hypovoluemia from acute blood loss anemia from epistaxis. Acute Blood Loss anemia / symptomatic anemia suspected secondary to epistasix. FOBT negative, he denies any bright red blood per rectum or melena. s/p 1 unit PRBC follow H&H Given 1.7L IVF, hold off further fluids at this time Syncope. Secondary to hyperkalemia, anemia Dysphagia secondary to esophageal stricture balloon dilatation today, return in 6-8 weeks for for further dilatation avoid NSAIDs for 1 week diet as tolerated HTN hold antihypertensives for now to avoid hypotension GERD PPI DVT prophylaxis with mechanical compression boots due to anemia attending: Dr. Montes full code Quality Stroke Does the patient have a stroke diagnosis?: No VTE Prior VTE?: No VTE Risk Level:: Medical - moderate - high VTE Device Contraindication: N/A - Device Ordered VTE Drug Contraindication: Treatment Not Indicated
[2021-03-05] MEDS: 0.9 % Sodium Chloride 1,000 ML 50 ML IVCONT (15:29)
--- NOTE | 2021-03-05 16:18 | PC.NURSE ---
Skin assessment completed today. No skin issues found. Old scars on back. Skin dry and intact. All documentation matches.
[2021-03-05] MEDS: Magnesium Hydrox/Alum Hydrox 30 ML ORAL.SUSP 15 ML PO ×2 (16:47→20:58)
[2021-03-05] MEDS: Morphine Sulfate 2 MG/ML CARTRIDGE IVPUSH ×2 (17:17→23:19)
--- NOTE | 2021-03-05 17:52 | PC.NURSE ---
Medication Pt has been refusing medication due to his difficulty to swallow, provider was made aware. PT had been NPO since midnight for his procedure this morning, medications were held until after his dilation, was started on a clear liquid diet post-procedure.. Attempted to administer his medication again and he noted it was too painful to swallow after he tried a sip of apple juice. Provider was notified and asked for alternative option, advised to hold medications if he was unable to take them. Pain and Heartburn Pt noted that he was in pain and ask for if he could have some medication tht could go through his IV, provider was made aware and an order for morphine IV was put in. Pt also have been complaining of heartburn, provider added maalox which was administered to pt. Effectiveness pending
[2021-03-06] VITALS (13 sets, daily range): BP systolic 133–198; BP diastolic 66–90; PULSE 77–101; RESP 18; TEMP 36.3–36.8; O2SAT 97–99
[2021-03-06] MEDS: diphenhydrAMINE HCL 50 MG/ML VIAL 25 MG IVPUSH (00:57)
[2021-03-06] MEDS: Magnesium Hydrox/Alum Hydrox 30 ML ORAL.SUSP 15 ML PO ×2 (06:48→17:41)
[2021-03-06] MEDS: Morphine Sulfate 2 MG/ML CARTRIDGE IVPUSH ×2 (06:48→17:41)
[2021-03-06 06:51] LABS: Hematocrit 27.7 % (42-52); Hemoglobin 9.2 g/dl (14.0-18.0); Mean Corpuscular HGB Conc 33.2 g/dl (31.0-36.0); Mean Corpuscular Hemoglobin 30.1 pg (27.0-33.0); Mean Corpuscular Volume 90.5 fL (80-98); Mean Platelet Volume 10.2 fL (9.4-12.4); Platelet Count 305 X10*3/uL (160-400); Red Blood Count 3.06 X10*6/uL (4.60-5.80); Red Cell Distribution Width 16.4 % (11.0-16.0); White Blood Count 8.3 X10*3/uL (4.8-10.8)
--- NOTE | 2021-03-06 06:56 | HO.POSTANES ---
Post Anesthesia Evaluation Post Anesthesia Evaluation Vital Signs: Vital Signs Temp Pulse Resp BP Pulse Ox 03/06/21 06:48 18 03/06/21 03:17 98.2 F 99 18 161/84 H 98 03/05/21 23:27 99.5 F 92 18 179/78 H 96 03/05/21 23:19 16 03/05/21 20:20 98 03/05/21 19:45 99.2 F 98 16 168/94 H 97 Anesthesia: General Endotracheal-GETA Mental Status: Awake Pain Control: Satisfactory Nausea/Vomiting: None Hydration: Adequate Anesthesia-Related Issues: No Anes. Related Issues
[2021-03-06] MEDS: Fluticasone Propionate 100 MCG BLST.W.DEV 2 PUFF INHALE ×2 (07:46→19:32)
[2021-03-06] MEDS: Lidocaine 4 % Patch ADH..PATCH 1 PATCH TRANSDERMA (08:48)
[2021-03-06] MEDS: dexAMETHasone sod phosphate 4 MG/ML VIAL IVPUSH ×2 (10:55→17:10)
[2021-03-06] MEDS: Losartan Potassium 50 MG TABLET PO (11:57)
--- NOTE | 2021-03-06 14:48 | MHC.CM.PN ---
DP Anticipate discharge tomorrow. He is having difficulty swallowing today(S/P Esophageal dilitation 03/05/21). 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 Dispo is to home no services family will transport. CM will follow to assess for change in DC needs. Pt may benefit from VNA.
--- NOTE | 2021-03-06 14:54 | P.DS_ITS ---
DS: Providers Provider Date of Service: 03/07/21 Date of admission: 03/04/21 12:08 Primary care physician: Tracy Oneill MD Consults: 03/04/21 15:15 Consult to Gastroenterology Routine Consulting Provider: Jonah Kim Reason for consultation: known stricture, needs dilatation? DS: Diagnosis Discharge Diagnosis (1) Anemia: Status: Acute (2) Esophageal stricture: Status: Acute DS: Medications Discharge Medications Home Medications: Home Medications Medication Instructions Recorded Confirmed atorvastatin 1 tab PO BEDTIME 06/21/20 03/04/21 cyanocobalamin (vitamin B-12) 1 tab PO DAILY 06/21/20 03/04/21 [Vitamin B-12] duloxetine 30 mg PO DAILY 06/21/20 03/04/21 duloxetine 60 mg PO DAILY 06/21/20 03/04/21 ferrous sulfate [Iron (ferrous 325 mg PO DAILY 06/21/20 03/04/21 sulfate)] nitroglycerin 1 tab SUBLINGUAL NEEDED PRN 06/21/20 03/04/21 omeprazole 40 mg PO DAILY 06/21/20 03/04/21 tizanidine 1 cap PO TID 06/21/20 03/04/21 umeclidinium-vilanterol [Anoro 1 inh INHALATION DAILY 06/21/20 03/04/21 Ellipta] fluticasone propionate 110 2 inh INHALATION BID 09/28/20 03/04/21 mcg/actuation HFA aerosol inhaler meclizine 25 mg tablet 25 mg PO Q8H PRN 09/28/20 03/04/21 naproxen 500 mg tablet 500 mg PO BID 09/28/20 03/04/21 artifi.tears(hypromellose)(PF) 1 drp OPHTHALMIC (EYE) BID PRN 03/04/21 03/04/21 capsaicin-menthol [Salonpas 1 patch TOPICAL TID 03/04/21 03/04/21 (capsaicin-menthol)] fluticasone propionate 1 spray INTRANASAL DAILY 03/04/21 03/04/21 gabapentin 1 cap PO TID 03/04/21 03/04/21 levocetirizine 1 tab PO QPM 03/04/21 03/04/21 levothyroxine 1 tab PO DAILY 03/04/21 03/04/21 losartan 1 tab PO DAILY 03/04/21 03/04/21 tizanidine 1 tab PO BEDTIME 03/04/21 03/04/21 triamcinolone acetonide 1 appl TOPICAL BID 03/04/21 03/04/21 Previous Rx's Medication Instructions Recorded albuterol sulfate 90 mcg/actuation 2 puff INHALATION Q4-5H PRN 30 12/12/20 aerosol inhaler Days #1 ea tramadol 50 mg tablet 50 mg PO TID PRN #90 tab 02/12/21 DS: Summary Hospital Course Hospital Course: from H&P on day of admission This is a 68-year-old male with a past medical history of throat cancer status post radiation and chemo with resultant esophageal stricture who presents to the hospital complaints of dizziness and brief loss of consciousness this morning. Patient reports that he dropped his off at short-stay surgery and he felt very dizzy and fainted . he denies any preceding chest pain or palpitations. He denies any shortness of breath or cough. He does endorse that over the last 2 days he has had significant nose bleed which has now subsided. Upon further questioning, the patient also endorses that he has had trouble swallowing, more so than his baseline. ( he typically eats only liquid diet due to his known esophageal stricture). he reports that he generally is able to swallow his pills but he has had difficulty with this. He denies any rectal bleeding or denies any hematemesis. He denies any abdominal pain. Upon arrival to the emergency room he was noted to be profoundly hypotensive with blood pressures in the 60s. A CBC was checked which showed hemoglobin of around 7, baseline is around 10. he was given a fluid bolus and transfuse 1 unit of packed red cells and admission was requested. Syncope. Likely secondary to hypovolemia from anemia in the setting of epistaxis Anemia. heme-negative. Likely secondary to epistaxis. Improved after blood transfusion. H/H has remained stable. No evidence of active bleeding. Dysphagia. Patient was evaluated by GI and underwent EGD with balloon dilatation of esophageal stricture on 03/05. Stricture likely secondary to previous radiation. He should call to schedule follow-up appointment with GI. Should avoid NSAIDs for 1 week. Can use Tylenol for pain. Patient had some difficulty swallowing the day after EGD, he received decadron with good effect. Likely had some swelling related to the procedure. He was observed overnight and is able to tolerate current diet and swallow pills at time of discharge. Hypertension. Patient was hypotensive on admission likely secondary to hypovolemia. His antihypertensives were held. His blood pressure rebounded and blood pressure medication was resumed. He should follow up with PCP for close blood pressure monitoring. Seen and examined on day of discharge. No change in physical exam. Time Spent with Patient Time attestation: Total time spent providing and/or coordinating discharge services: Discharge coordination time: Greater than 30 minutes Quality: Stroke Does the patient have a stroke diagnosis?: No Physical Exam Vital Signs: Vital Signs: Last Vital Signs Temp 98.3 F 03/06/21 11:08 Pulse 101 H 03/06/21 11:57 Resp 18 03/06/21 11:08 BP 191/89 H 03/06/21 11:57 Pulse Ox 98 03/06/21 11:08 Body Mass Index 22.1 Const: General: comfortable, no acute distress, alert and awake Orientation /consciousness: patient oriented x3 HENMT: Head: Yes normocephalic and Yes atraumatic Eyes: Sclerae: sclerae normal Resp: Effort & Inspection: normal respiratory effort and no respiratory distress Cardio: Rate: regular rate Rhythm: regular rhythm GI: Palpation (GI): Soft to palpation and nontender Neuro: General: patient oriented x3 Cranial nerves: Yes CN's II-XII intact bilaterally and Yes Bilaterally intact EOM present DS: Data Data Completed and Pending Labs on day of discharge: Laboratory Results - last 24 hr 03/06/21 05:13 WBC 8.3 RBC 3.06 L Hgb 9.2 L Hct 27.7 L MCV 90.5 MCH 30.1 MCHC 33.2 RDW 16.4 H Plt Count 305 MPV 10.2 Absolute Nucleated RBC 0.000 Nucleated RBC % (auto) 0.0 Preliminary micro results at discharge 03/04/21 08:53 Blood Culture - Preliminary Blood - Venous No growth after 48 hours. 03/04/21 08:53 Blood Culture - Preliminary Blood - Venous No growth after 48 hours. Discharge Plan Discharge Patient Disposition: Home, Self-Care Discharge Diagnosis: Acute blood loss anemia/epistaxis dysphagia/esophageal stricture Referrals: Tracy Oneill MD [Primary Care Provider] - 1 Week Renard Payan MD [Physician] - 6 Weeks Discharge Medications: Continued tramadol 50 mg tablet 50 mg PO TID PRN (Reason: Pain) Qty: 90 RF: 5 losartan 50 mg tablet 1 tab PO DAILY RF: 0 tizanidine 4 mg tablet 1 tab PO BEDTIME RF: 0 gabapentin 400 mg capsule 1 cap PO TID RF: 0 levothyroxine 75 mcg tablet 1 tab PO DAILY RF: 0 fluticasone propionate 50 mcg/actuation spray,suspension 1 spray intranasal DAILY RF: 0 levocetirizine 5 mg tablet 1 tab PO QPM RF: 0 triamcinolone acetonide 0.5 % Cream 1 appl TOPICAL BID RF: 0 artifi.tears(hypromellose)(PF) 0.3 % Drops 1 drp OPHTHALMIC (EYE) BID PRN (Reason: Dry Eyes) RF: 0 Salonpas (capsaicin-menthol) 0.025-1.25 % Adhesive Patch,Medicated 1 patch TOPICAL TID RF: 0 atorvastatin 80 mg tablet 1 tab PO BEDTIME RF: 0 cyanocobalamin (vitamin B-12) [Vitamin B-12] 1,000 mcg tablet 1 tab PO DAILY RF: 0 omeprazole 40 mg capsule,delayed release(DR/EC) 40 mg PO DAILY RF: 0 ferrous sulfate [Iron (ferrous sulfate)] 325 mg (65 mg iron) Tablet 325 mg PO DAILY RF: 0 nitroglycerin 0.4 mg tablet, sublingual 1 tab sublingual NEEDED PRN (Reason: Chest Pain) RF: 0 duloxetine 30 mg capsule,delayed release(DR/EC) 30 mg PO DAILY RF: 0 duloxetine 60 mg capsule,delayed release(DR/EC) 60 mg PO DAILY RF: 0 tizanidine 2 mg capsule 1 cap PO TID RF: 0 Anoro Ellipta 62.5-25 mcg/actuation Blister With Device 1 inh INHALATION DAILY RF: 0 fluticasone propionate 110 mcg/actuation HFA aerosol inhaler 2 inh inhalation BID RF: 0 meclizine 25 mg tablet 25 mg PO Q8H PRN (Reason: Vertigo) RF: 0 albuterol sulfate 90 mcg/actuation HFA aerosol inhaler 2 puff inhalation Q4-5H PRN (Reason: Shortness Of Breath) 30 Days Qty: 1 RF: 6 Held naproxen 500 mg tablet 500 mg PO BID RF: 0 Hold Instructions: Resume on 03/13/21. Discharge Orders: Discharge Order (Routine); Ordered 03/07/21 Ordered By: Maren Mccarthy Activity on Discharge: As tolerated Stand Alone Forms: Patient Portal Discharge page Care Plan Goals: see below Health Concerns: syncope anemia esophageal stricture HTN Plan of Treatment: esophageal stricture- avoid ibuprofen, Naprosyn, Aleve and other related medications (NSAIDs) for 1 week, can use Tylenol for pain. follow-up with GI for repeat dilation in 6-8 weeks HTN. Call to schedule follow-up appointment with PCP for blood pressure monitoring Assessment: see discharge summary
[2021-03-06] MEDS: TiZANidine HCL 4 MG TABLET 2 MG PO ×2 (15:10→20:08)
[2021-03-06] MEDS: Gabapentin 400 MG CAPSULE PO ×2 (15:10→20:08)
[2021-03-06] MEDS: 0.9 % Sodium Chloride Flush 3 ML SYRINGE IVFLUSH ×2 (15:12→20:08)
--- NOTE | 2021-03-06 16:10 | P.PNIM_ITS ---
Subjective Subjective Date of Service: 03/06/21 Interval History: seen and examined this morning follow-up for anemia, esophageal stricture. had esophageal dilation yesterday patient reports difficulty swallowing this morning Review of Systems Review of Systems: Yes all other systems are reviewed and are negative Constitutional Constitutional: Denies chills and Denies fever(s) Cardiovascular Cardiovascular: Denies chest pain Respiratory Respiratory: Denies cough Gastrointestinal Gastrointestinal: Denies abdominal pain Physical Exam Vital Signs: Vital Signs: Last Vital Signs Temp 98.1 F 03/06/21 15:23 Pulse 95 03/06/21 15:23 Resp 18 03/06/21 15:23 BP 198/90 H 03/06/21 15:23 Pulse Ox 98 03/06/21 15:23 Body Mass Index 22.1 Const: General: comfortable, alert and awake Orientation/consciousness: patient oriented x3 HENMT: Head: Yes normocephalic and Yes atraumatic Eyes: Sclerae: sclerae normal Chest: Chest palpation & inspection: normal inspection of the chest Resp: Effort & Inspection: normal respiratory effort and no respiratory distress Cardio: Rate: regular rate Rhythm: regular rhythm GI: Palpation (GI): Soft to palpation and nontender Neuro: General: patient oriented x3 Cranial nerves: Yes CN's II-XII intact bilaterally and Yes Bilaterally intact EOM present Objective Data Current Medications Generic Name Dose Route Start Last Admin Trade Name Freq PRN Reason Stop Dose Admin Al Hydroxide/Mg Hydroxide 15 ml 03/05/21 16:15 03/06/21 06:48 Magnesium Hydrox/Alum Hydrox 30 Ml Oral.Susp PO 15 ml Q4H PRN Administration Heartburn Artificial Tears 1 drop 03/04/21 17:35 Artificial Tears 15 Ml Drops EYE-BOTH BID PRN Dry Eyes Cyanocobalamin 1,000 mcg 03/05/21 09:00 03/06/21 09:57 Cyanocobalamin (Vitamin B-12) 1,000 Mcg Tablet PO Not Given DAILY [facility] Duloxetine HCl 90 mg 03/05/21 09:00 03/06/21 09:57 Duloxetine Hcl 30 Mg Capsule.Dr PO Not Given DAILY [facility] Fluticasone Propionate 2 puff 03/04/21 20:00 03/06/21 07:46 Fluticasone Propionate 100 Mcg Blst.W.Dev INHALE 2 puff RBID [facility] Administration Gabapentin 400 mg 03/04/21 15:15 03/06/21 15:10 Gabapentin 400 Mg Capsule PO 400 mg TID [facility] Administration Sodium Chloride 1,000 mls @ 50 mls/hr 03/04/21 17:30 03/06/21 10:53 Ns IVCONT Not Given .Q20H [facility] Lactated Ringer's 1,000 mls @ 50 mls/hr 03/05/21 13:30 03/06/21 09:58 Lr IVCONT Not Given .Q20H [facility] Levothyroxine Sodium 75 mcg 03/05/21 06:30 03/06/21 06:52 Levothyroxine Sodium 75 Mcg Tablet PO Not Given DAILY@0630 [facility] Lidocaine 1 patch 03/05/21 09:00 03/06/21 08:48 Lidocaine 4 % Patch Adh..Patch TRANSDERMA 1 patch DAILY [facility] Administration Protocol Losartan Potassium 50 mg 03/06/21 11:40 03/06/21 11:57 Losartan Potassium 50 Mg Tablet PO 50 mg DAILY [facility] Administration Protocol Morphine Sulfate 2 mg 03/05/21 17:00 03/06/21 06:48 Morphine Sulfate 2 Mg/Ml Cartridge IVPUSH 2 mg Q6H PRN Administration Pain, Mild (Pain Scale 1-3) Ondansetron HCl 4 mg 03/04/21 15:15 Ondansetron Hcl 4 Mg/2 Ml Vial IVPUSH Q8H PRN Nausea and Vomiting Pharmacy Consult 1 each 03/04/21 09:01 Consult Rx Perform Med Rec MISCELLANE ONCE PRN Consult order Sodium Chloride 3 ml 03/04/21 16:00 03/06/21 15:12 0.9 % Sodium Chloride Flush 3 Ml Syringe IVFLUSH 3 ml QSHIFT [facility] Administration Tizanidine HCl 4 mg 03/04/21 21:00 03/05/21 21:11 Tizanidine Hcl 4 Mg Tablet PO Not Given BEDTIME [facility] Tizanidine HCl 2 mg 03/04/21 15:30 03/06/21 15:10 Tizanidine Hcl 4 Mg Tablet PO 2 mg TID [facility] Administration Labs CBC & Chem 7: 03/06/21 05:13 03/05/21 05:17 Labs: Laboratory Results - last 24 hr 03/06/21 05:13 WBC 8.3 RBC 3.06 L Hgb 9.2 L Hct 27.7 L MCV 90.5 MCH 30.1 MCHC 33.2 RDW 16.4 H Plt Count 305 MPV 10.2 Absolute Nucleated RBC 0.000 Nucleated RBC % (auto) 0.0 Microbiology Microbiology Results: Microbiology 03/04/21 08:53 Blood Culture - Preliminary Blood - Venous No growth after 48 hours. 03/04/21 08:53 Blood Culture - Preliminary Blood - Venous No growth after 48 hours. Quality Stroke Does the patient have a stroke diagnosis?: No VTE Prior VTE?: No VTE Risk Level:: Medical - moderate - high VTE Device Contraindication: N/A - Device Ordered VTE Drug Contraindication: Treatment Not Indicated Assessment and Plan (1) Esophageal stricture: Status: Acute (2) Anemia: Status: Acute Assessment and Plan: This is a 70 yo M with a PMH of throat cancer s/p chemo / radiation with resultant esophageal stricture who presents to the hospital after a syncopal episode, likely secondary to hypovoluemia from acute blood loss anemia from epistaxis. Acute Blood Loss anemia / symptomatic anemia suspected secondary to epistasixis. FOBT negative s/p 1 unit PRBC with appropriate rise in H/H H/H has remainied stable Syncope. Secondary to hypovolemia, anemia Dysphagia reporting some difficulty swallowing this am, given decadron with good response. secondary to esophageal stricture with h/o radiation; s/p balloon dilatation 03/05 avoid NSAIDs for 1 week diet as tolerated HTN BP elevated. asymptomatic -resume home losartan -monitor BP closely GERD PPI DVT prophylaxis with mechanical compression boots due to anemia attending: Dr. Montes full code
[2021-03-06] MEDS: TiZANidine HCL 4 MG TABLET PO (20:07)
[2021-03-07 03:35] VITALS: BP 135/73; PULSE 89; RESP 18; TEMP 36.6; O2SAT 98
[2021-03-07] MEDS: Levothyroxine Sodium 75 MCG TABLET PO (05:30)
[2021-03-07 07:40] VITALS: BP 178/90; PULSE 99; RESP 20; TEMP 36.7; O2SAT 99
[2021-03-07] MEDS: Fluticasone Propionate 100 MCG BLST.W.DEV 2 PUFF INHALE (08:00)
[2021-03-07 08:03] VITALS: PULSE 92; O2SAT 98
--- NOTE | 2021-03-07 10:18 | MHC.CM.PN ---
IMM 03/07/21 DX Anemia. S/P esophageal dilatation. He is discharged to home today. Resumption of [facility] services. [facility] will assess 24-48h after DC. The patients family is providing transportation to home.
[2021-03-07] MEDS: DULoxetine HCl 30 MG CAPSULE.DR 90 MG PO (11:07)
[2021-03-07 11:08] VITALS: BP 179/86; PULSE 84
[2021-03-07] MEDS: Gabapentin 400 MG CAPSULE PO (11:08)
[2021-03-07] MEDS: Cyanocobalamin (Vitamin B-12) 1,000 MCG TABLET 1000 MCG PO (11:08)
[2021-03-07] MEDS: Losartan Potassium 50 MG TABLET PO (11:08)
[2021-03-07] MEDS: TiZANidine HCL 4 MG TABLET 2 MG PO (11:12)
[2021-03-07] MEDS: Lidocaine 4 % Patch ADH..PATCH 1 PATCH TRANSDERMA (11:13)
== END 2021-03-07 11:00 | disposition home or self-care (01) | DRG 392 ==
LOC: HO.ED 11:45 → HO.EDOVER 12:11 → HO.IMC 14:45
PROVIDERS: Internal Medicine Gastroenterology; Nurse Practitioner Acute Care; Nurse Practitioner Family; Admitting Provider Family Medicine; Emergency Provider Emergency Medicine Emergency Medical Services; PCP Internal Medicine; Visit Provider Family Medicine
PROC: 0D758ZZ Dilation of Esophagus, Via Natural or Artificial Opening Endoscopic (ICD-10-PCS; principal; 2021-03-05 13:40)
DX: K22.2 Esophageal obstruction (principal); D62 Acute posthemorrhagic anemia; F17.210 Nicotine dependence, cigarettes, uncomplicated; I10 Essential (primary) hypertension; E86.0 Dehydration; K21.9 Gastro-esophageal reflux disease without esophagitis; Z71.6 Tobacco abuse counseling; K22.70 Barrett's esophagus without dysplasia; E86.1 Hypovolemia; I95.1 Orthostatic hypotension; Z20.822 Contact with and (suspected) exposure to COVID-19; Z85.01 Personal history of malignant neoplasm of esophagus; Z79.1 Long term (current) use of non-steroidal anti-inflammatories (NSAID); Z79.51 Long term (current) use of inhaled steroids; Z79.891 Long term (current) use of opiate analgesic; Z79.899 Other long term (current) drug therapy
CPT/HCPCS: 36415; 70450; 70491; 71046; 80048; 80053; 80076; 81003; 82272; 83605; 83690; 83735; 84484; 85014; 85018; 85025; 85027; 85610; 86850; 86900; 86901; 86923; 87040; 87635; 93005; 94640; 99285; C1726; J1100; J1200; J2270; P9016; Q9967

== ENCOUNTER 2021-03-13 08:48 | Outpatient (REF) | payer MEDICARE, SELFPAY ==
--- NOTE | ~2021-03-13 | XR_ITS ---
EXAMINATION: XR LUMBOSACRAL SPINE CLINICAL INFORMATION: Lumbago with sciatica left-sided. COMPARISON: 03/19/[address] scan of 04/25/2019. TECHNIQUE: 3 views of the lumbosacral spine. FINDINGS: Patient status post previous surgical management dilatation with pedicle screw and kenya fixation L4-L5 with sacralization of L5. No acute fracture, spondylolisthesis, spondylolysis is appreciated. Hardware appears unchanged in appearance. Sacroiliac joints unremarkable. Status post L5 laminectomy. XR/XR lumbar spine 2-3V IMPRESSION: No acute fracture, spinal listhesis, or spondylolysis of the lumbar spine. Previous surgical intervention L4-L5 level.
== END 2021-03-13 08:49 | disposition home or self-care (01) ==
LOC: HO.XRAY 08:48
PROVIDERS: PCP Internal Medicine; Visit Provider Student in an Organized Health Care Education/Training Program
DX: G89.29 Other chronic pain (principal); M54.42 Lumbago with sciatica, left side; R91.8 Other nonspecific abnormal finding of lung field
CPT/HCPCS: 72100

== ENCOUNTER → 2021-03-20 11:45 | Outpatient (BNVA) | payer MEDICARE, SELFPAY | PROVIDERS: PCP Internal Medicine; Visit Provider Student in an Organized Health Care Education/Training Program | DX: M17.12 Unilateral primary osteoarthritis, left knee (principal) | CPT/HCPCS: 20610; 99212 ==

== ENCOUNTER 2021-03-29 10:45 | Outpatient (REF) | payer MEDICARE, SELFPAY ==
--- NOTE | ~2021-03-29 | CT_ITS ---
EXAMINATION: CT CHEST WITHOUT CONTRAST CLINICAL INFORMATION: Follow-up pulmonary nodules COMPARISON: Previous chest CT scans most recent December 2019 chest x-ray most recent February 2021 TECHNIQUE: Multidetector volumetric CT imaging of the chest was done. Axial MIP volume rendering provided. Sagittal and coronal reformatted images were obtained. This CT examination was performed using dose optimization techniques as appropriate, variously including the following: *Automated exposure control *Adjustment of mA and/or kV according to patient size (this includes techniques or standardized protocols for targeted exams where dose is matched to indication/reason for exam; i.e. extremities or head) *Use of iterative reconstruction technique DLP: 222 mGy-cm FINDINGS: LUNGS: There is biapical pleural and parenchymal scarring that is stable. There is a 4 mm calcified left apical nodule axial image 5 series 2 that is stable. There is new consolidation seen in the posterior segment of the right upper lobe. There is surrounding groundglass attenuation and increased interstitial markings. This abuts the right major fissure. Together, solid and semisolid components measure approximately 5 x 5 cm. There are new clustered semisolid peribronchial nodular opacities seen in the right middle and right lower lobes. Largest conglomerate right lower lobe lesion measures 2 x 4 cm axial image 33. Right middle lobe opacity measures 0.6 x 2.6 cm axial image 39 series 3. There is a new semisolid superior segment left lower lobe nodule axial image 23 series 3. There are multiple new more inferior semisolid clustered peribronchial nodular opacities, largest measuring 8 mm axial image 37 series 3. There is a new abnormal parenchymal density in the peripheral or subpleural left lower lobe measuring 1 x 1.8 cm axial image 34 series 3. There is a 4 mm calcified left lower lobe nodule axial image 40 series 3 that is stable. There is new subsegmental atelectasis in the left lower lobe. MEDIASTINUM: The thoracic aorta is slightly dilated. The ascending thoracic aorta measures 4.4 cm aortic arch 3.2 cm. The descending thoracic aorta is normal in caliber measuring 2.7 cm. The heart does not appear enlarged. There is mild coronary artery calcification. There is a small stable pericardial effusion. There are no enlarged hilar or mediastinal nodes. The distal thoracic esophagus appears fluid-filled. PLEURA: There is a trace left pleural effusion or pleural thickening. There is no right pleural effusion AXILLA: No lymphadenopathy. UPPER ABDOMEN: There is a 2 cm low-attenuation lesion in the peripheral left lobe of the liver probably representing a cyst that is stable axial image 51 series 2. There is a small 2 mm stone in the upper pole of the right kidney. There is a calcification in the spleen likely related to old granulomatous disease. OSSEOUS STRUCTURES: Unremarkable. CT/CT chest wo con IMPRESSION: New area of dense consolidation in the right upper lobe and new scattered semisolid nodular opacities, greatest in the bilateral lower lobes. This may represent an infectious or inflammatory process. Short-term follow-up CT exam in several months to ensure resolution recommended. This is new from previous chest x-ray 10/04/2020. New trace left pleural effusion or pleural thickening.
== END 2021-03-29 10:46 | disposition home or self-care (01) ==
LOC: HO.CT 10:45
PROVIDERS: Visit Provider Internal Medicine Pulmonary Disease
DX: R91.8 Other nonspecific abnormal finding of lung field (principal)
CPT/HCPCS: 71250

== ENCOUNTER → 2021-05-14 10:41 | Outpatient (BNVA) | payer MEDICARE, SELFPAY | PROVIDERS: PCP Internal Medicine; Visit Provider Internal Medicine Gastroenterology | DX: K22.2 Esophageal obstruction (principal) | CPT/HCPCS: 99212 ==

== ENCOUNTER → 2021-05-16 12:54 | Outpatient (BNVA) | payer MEDICARE, SELFPAY | PROVIDERS: PCP Internal Medicine; Visit Provider Internal Medicine Pulmonary Disease | DX: R06.00 Dyspnea, unspecified (principal); R91.8 Other nonspecific abnormal finding of lung field; Z92.3 Personal history of irradiation | CPT/HCPCS: 99212 ==

== ENCOUNTER 2021-05-29 12:40 | Outpatient (RCR) | payer MEDICARE, SELFPAY | END 2021-06-12 13:17 | disposition home or self-care (01) | LOC: HO.PT 12:40 | PROVIDERS: PCP Internal Medicine; Visit Provider Internal Medicine | DX: M54.9 Dorsalgia, unspecified (principal) | CPT/HCPCS: 97162; 97530 ==

== ENCOUNTER → 2021-06-04 13:23 | Outpatient (BNVA) | payer MEDICARE, SELFPAY | PROVIDERS: PCP Internal Medicine; Visit Provider Internal Medicine | DX: I25.10 Atherosclerotic heart disease of native coronary artery without angina pectoris (principal); I71.2 Thoracic aortic aneurysm, without rupture; R07.2 Precordial pain | CPT/HCPCS: 99212 ==

== ENCOUNTER 2021-06-17 15:52 | Emergency (ER) | payer MEDICARE, SELFPAY ==
[2021-06-17] VITALS (11 sets, daily range): BP systolic 101–170; BP diastolic 44–80; PULSE 72–92; RESP 15–19; TEMP 36.6–36.9; O2SAT 97–100; BMI 20.7
--- NOTE | 2021-06-17 16:17 | ED.GENADULT ---
HPI - General Adult General Chief complaint: Syncope Stated complaint: Dizziness Time Seen by Provider: 06/17/21 16:11 Source: patient Mode of arrival: EMS Limitations: no limitations History of Present Illness HPI narrative: Patient is officially cancer with dysphagia with poor oral intake was working on his car stood up felt lightheaded and almost passed out similar to that when he admitted last time 02/25. No chest pain or palpitation patient lay down on the ground and felt better patient trying to eat liquid food as advised with skin care specialist no vomiting or diarrhea Related Data Home Medications Medication Instructions Recorded Confirmed cyanocobalamin (vitamin B-12) 1 tab PO DAILY 06/21/20 06/04/21 1,000 mcg tablet (Vitamin B-12) duloxetine 30 mg capsule,delayed 30 mg PO DAILY 06/21/20 06/04/21 release duloxetine 60 mg capsule,delayed 60 mg PO DAILY 06/21/20 06/04/21 release ferrous sulfate 325 mg (65 mg 325 mg PO DAILY 06/21/20 06/04/21 iron) tablet (Iron (ferrous sulfate)) nitroglycerin 0.4 mg sublingual 1 tab SUBLINGUAL NEEDED PRN 06/21/20 06/04/21 tablet omeprazole 40 mg capsule,delayed 40 mg PO DAILY 06/21/20 03/20/21 release umeclidinium 62.5 mcg-vilanterol 1 inh INHALATION DAILY 06/21/20 03/20/21 25 mcg/actuation powdr for inhalation (Anoro Ellipta) fluticasone propionate 110 2 inh INHALATION BID 09/28/20 06/04/21 mcg/actuation HFA aerosol inhaler meclizine 25 mg tablet 25 mg PO Q8H PRN 09/28/20 06/04/21 naproxen 500 mg tablet 500 mg PO BID 09/28/20 06/04/21 artifi.tears(hypromellose)(PF) 0.3 1 drp OPHTHALMIC (EYE) BID PRN 03/04/21 06/04/21 % eye drops capsaicin-menthol 0.025 %-1.25 % 1 patch TOPICAL TID 03/04/21 06/04/21 topical patch (Salonpas (capsaicin-menthol)) gabapentin 400 mg capsule 1 cap PO TID 03/04/21 06/04/21 levothyroxine 75 mcg tablet 1 tab PO DAILY 03/04/21 06/04/21 losartan 50 mg tablet 1 tab PO DAILY 03/04/21 06/04/21 tizanidine 4 mg tablet 1 tab PO BEDTIME 03/04/21 03/20/21 triamcinolone acetonide 0.5 % 1 appl TOPICAL BID 03/04/21 03/20/21 topical cream acetaminophen 500 mg tablet 500 mg PO TID PRN 05/14/21 06/04/21 atorvastatin 80 mg tablet 80 mg PO BEDTIME 06/04/21 06/04/21 Previous Rx's Medication Instructions Recorded albuterol sulfate 90 mcg/actuation 2 puff INHALATION Q4-5H PRN 30 12/12/20 aerosol inhaler Days #1 ea tramadol 50 mg tablet 50 mg PO TID PRN #90 tab 02/12/21 fluticasone propionate 50 1 spray INTRANASAL BID #16 g 05/14/21 mcg/actuation nasal spray,suspension guaifenesin 100 mg/5 mL oral liquid 200 mg PO Q4H PRN #1500 ml 05/14/21 loratadine 5 mg/5 mL oral solution 5 mg PO BID #120 ml 05/14/21 (Children's Claritin) sodium chloride 0.65 % nasal spray 1 spray INTRANASAL BID PRN #60 ml 05/14/21 aerosol ([place] Nasal) levofloxacin 750 mg tablet 750 mg PO DAILY 7 Days #7 tab 05/16/21 Allergies Allergy/AdvReac Type Severity Reaction Status Date / Time Penicillins Allergy Rash Verified 06/04/21 13:30 aspirin [ASA] AdvReac Intermediate GI BLEED, Verified 06/04/21 13:30 Headaches Review of Systems Review of Systems: Yes all other systems are reviewed and are negative [facility] Past Medical History Medical History Anemia Aortic aneurysm Arthritis Back pain Cancer COPD (chronic obstructive pulmonary disease) Depression Difficulty swallowing Elevated cholesterol GERD (gastroesophageal reflux disease) History of chemotherapy HTN (hypertension) Hx of radiation therapy Osteoarthritis of left shoulder Pulmonary nodule Thyroid disease Surgical History H/O colonoscopy History of back surgery History of esophagogastroduodenoscopy (EGD) Family History Family History Father Brain cancer Mother CVD (cardiovascular disease) Maternal Aunt Diabetes Social History Social History Household Members: Spouse and Children Household Members Other:: 3 Housing: Apartment Do you presently have visiting nurse or other home services: Yes Alcohol intake: never Patient Tobacco Use Status: Former Tobacco user Quit Date: 30 yrs ago Tobacco use type: Cigarette Cigarette Packs Per Day: 3 Cigarettes Per Day: 60.0 Years Smoked: 25 e-Cigarette/Vaping Use: Never Used Second Hand Smoke Exposure: No Advance Directives: Yes Advance Directives on File: Yes Advance Directives Date on File: 03/04/21 service: No Current occupational status: disabled Physical Exam Vital Signs: Vital Signs: Last Vital Signs Temp 98.5 F 06/17/21 18:54 Pulse 84 06/17/21 20:01 Resp 19 06/17/21 20:01 BP 129/70 06/17/21 20:01 Pulse Ox 98 06/17/21 20:01 Body Mass Index 20.7 Appearance: Alert. Oriented X3. No acute distress. Thin built not in any distress Eyes: Pallor+ ENT: Pharynx normal. Oral Mucosa moist muffled voice Neck: Normal inspection. Neck supple. CVS: Normal heart rate and rhythm. Pulses normal. Respiratory: No respiratory distress. Equal air entry bilateral, no wheezing/rales/rhonchi Abdomen: Soft and nontender. Bowel sounds are present, no mass palpable, no CVA tenderness Skin: Skin warm and dry. Normal skin color. Normal skin turgor. Extremities: No lower extremity edema. No calf tenderness Neuro: Oriented X 3. Medical Decision Making MDM Narrative Medical decision making narrative: Patient with dysphagia secondary to esophageal cancer with poor oral intake came for near-syncope episode likely secondary dehydration. Will check labs electrolytes and give IV fluids After 2 L of IV fluids patient feeling much better orthostatics improved discharge patient home advised to continue to increase oral intake Lab Data Lab results reviewed: Yes I reviewed the patient's lab results. Result diagrams: 06/17/21 16:59 06/17/21 16:59 Labs: Lab Results 06/17/21 06/17/21 06/17/21 Range/Units 16:59 16:59 16:59 WBC 4.9 (4.8-10.8) X10*3/uL RBC 2.59 L (4.60-5.80) X10*6/uL Hgb 7.5 L (14.0-18.0) g/dl Hct 24.2 L (42-52) % MCV 93.4 (80-98) fL MCH 29.0 (27.0-33.0) pg MCHC 31.0 (31.0-36.0) g/dl RDW 19.9 H (11.0-16.0) % Plt Count 253 (160-400) X10*3/uL MPV 9.8 (9.4-12.4) fL Immature Gran % (Auto) 0.2 (0.0-0.4) % Neut % (Auto) 80.9 H (45-73) % Lymph % (Auto) 7.2 L (20-40) % Vernon % (Auto) 10.1 (2-11) % Eos % (Auto) 1.0 (0-4) % Baso % (Auto) 0.6 (0-2) % Lymph # (Auto) 0.4 L (1.2-4.9) X10*3/uL Vernon # (Auto) 0.5 (0.1-1.2) X10*3/uL Eos # (Auto) 0.1 (0.0-0.4) X10*3/uL Baso # (Auto) 0.0 (0.0-0.2) X10*3/uL Abs Immat Gran (auto) 0.01 (0.00-0.03) X10*3/uL Absolute Neuts (auto) 3.9 (2.0-8.3) X10*3/uL Absolute Nucleated RBC 0.000 (0.0-0.012) X10*3/uL Nucleated RBC % (auto) 0.0 (0.0-0.2) /100WBC Sodium 138 (135-145) mmol/L Potassium 3.5 (3.3-5.1) mmol/L Chloride 104 (96-108) mmol/L Carbon Dioxide 25 (22-29) mmol/L Anion Gap 13 (12-20) BUN 14 (9-16) mg/dL Creatinine 1.02 (0.5-1.4) mg/dL Estim Creat Clear Calc 57.0 Estimated GFR > 60 Random Glucose 110 (60-115) mg/dL Calcium 8.9 D (8.4-10.2) mg/dL Magnesium 2.3 (1.6-2.6) mg/dL Total Bilirubin 0.4 (0.0-1.0) mg/dL AST 27 (5-37) U/L ALT 11 (0-40) U/L Alkaline Phosphatase 70 (39-117) U/L Total Protein 6.8 (6.5-8.0) g/dL Albumin 3.8 (3.5-5.0) g/dL Urine Color Urine Appearance Urine pH (5.0-8.0) Ur Specific Thayer (1.005-1.025) Urine Protein (NEG-TRACE) MG/DL Urine Glucose (UA) (NEG) MG/DL Urine Ketones (NEG) MG/DL Urine Blood (NEG) Urine Nitrite (NEG) Ur Leukocyte Esterase (NEG) Acetone, Qual Negative (Negative) 06/17/21 Range/Units 18:30 WBC (4.8-10.8) X10*3/uL RBC (4.60-5.80) X10*6/uL Hgb (14.0-18.0) g/dl Hct (42-52) % MCV (80-98) fL MCH (27.0-33.0) pg MCHC (31.0-36.0) g/dl RDW (11.0-16.0) % Plt Count (160-400) X10*3/uL MPV (9.4-12.4) fL Immature Gran % (Auto) (0.0-0.4) % Neut % (Auto) (45-73) % Lymph % (Auto) (20-40) % Vernon % (Auto) (2-11) % Eos % (Auto) (0-4) % Baso % (Auto) (0-2) % Lymph # (Auto) (1.2-4.9) X10*3/uL Vernon # (Auto) (0.1-1.2) X10*3/uL Eos # (Auto) (0.0-0.4) X10*3/uL Baso # (Auto) (0.0-0.2) X10*3/uL Abs Immat Gran (auto) (0.00-0.03) X10*3/uL Absolute Neuts (auto) (2.0-8.3) X10*3/uL Absolute Nucleated RBC (0.0-0.012) X10*3/uL Nucleated RBC % (auto) (0.0-0.2) /100WBC Sodium (135-145) mmol/L Potassium (3.3-5.1) mmol/L Chloride (96-108) mmol/L Carbon Dioxide (22-29) mmol/L Anion Gap (12-20) BUN (9-16) mg/dL Creatinine (0.5-1.4) mg/dL Estim Creat Clear Calc Estimated GFR Random Glucose (60-115) mg/dL Calcium (8.4-10.2) mg/dL Magnesium (1.6-2.6) mg/dL Total Bilirubin (0.0-1.0) mg/dL AST (5-37) U/L ALT (0-40) U/L Alkaline Phosphatase (39-117) U/L Total Protein (6.5-8.0) g/dL Albumin (3.5-5.0) g/dL Urine Color YELLOW Urine Appearance CLEAR Urine pH 7.0 (5.0-8.0) Ur Specific Thayer <= 1.005 (1.005-1.025) Urine Protein NEG (NEG-TRACE) MG/DL Urine Glucose (UA) NEG (NEG) MG/DL Urine Ketones NEG (NEG) MG/DL Urine Blood NEG (NEG) Urine Nitrite NEG (NEG) Ur Leukocyte Esterase NEG (NEG) Acetone, Qual (Negative) Discharge Plan Discharge Clinical Impression: Near syncope, Hypovolemia Patient Disposition: Home, Self-Care Instructions: Dehydration (ED), Near Syncope (ED) Additional Instructions: Drink plenty of fluids and follow up with PCP Prescriptions: No Action tramadol 50 mg tablet 50 mg PO TID PRN (Reason: Pain) Qty: 90 RF: 5 losartan 50 mg tablet 1 tab PO DAILY RF: 0 tizanidine 4 mg tablet 1 tab PO BEDTIME RF: 0 gabapentin 400 mg capsule 1 cap PO TID RF: 0 levothyroxine 75 mcg tablet 1 tab PO DAILY RF: 0 triamcinolone acetonide 0.5 % Cream 1 appl TOPICAL BID RF: 0 artifi.tears(hypromellose)(PF) 0.3 % Drops 1 drp OPHTHALMIC (EYE) BID PRN (Reason: Dry Eyes) RF: 0 Salonpas (capsaicin-menthol) 0.025-1.25 % Adhesive Patch,Medicated 1 patch TOPICAL TID RF: 0 cyanocobalamin (vitamin B-12) [Vitamin B-12] 1,000 mcg tablet 1 tab PO DAILY RF: 0 omeprazole 40 mg capsule,delayed release(DR/EC) 40 mg PO DAILY RF: 0 ferrous sulfate [Iron (ferrous sulfate)] 325 mg (65 mg iron) Tablet 325 mg PO DAILY RF: 0 nitroglycerin 0.4 mg tablet, sublingual 1 tab sublingual NEEDED PRN (Reason: Chest Pain) RF: 0 duloxetine 30 mg capsule,delayed release(DR/EC) 30 mg PO DAILY RF: 0 duloxetine 60 mg capsule,delayed release(DR/EC) 60 mg PO DAILY RF: 0 Anoro Ellipta 62.5-25 mcg/actuation Blister With Device 1 inh INHALATION DAILY RF: 0 atorvastatin 80 mg tablet 80 mg PO BEDTIME RF: 0 acetaminophen 500 mg tablet 500 mg PO TID PRN (Reason: headache) RF: 0 loratadine [Children's Claritin] 5 mg/5 mL solution 5 mg PO BID Qty: 120 RF: 1 guaifenesin 100 mg/5 mL liquid 200 mg PO Q4H PRN (Reason: cough) Qty: 1500 RF: 0 fluticasone propionate 50 mcg/actuation spray,suspension 1 spray intranasal BID Qty: 16 RF: 0 sodium chloride [[place] Nasal] 0.65 % aerosol,spray 1 spray intranasal BID PRN (Reason: dry nasal passages) Qty: 60 RF: 0 naproxen 500 mg tablet 500 mg PO BID RF: 0 Hold Instructions: Resume on 03/13/21. fluticasone propionate 110 mcg/actuation HFA aerosol inhaler 2 inh inhalation BID RF: 0 meclizine 25 mg tablet 25 mg PO Q8H PRN (Reason: Vertigo) RF: 0 albuterol sulfate 90 mcg/actuation HFA aerosol inhaler 2 puff inhalation Q4-5H PRN (Reason: Shortness Of Breath) 30 Days Qty: 1 RF: 6 levofloxacin 750 mg tablet 750 mg PO DAILY 7 Days Qty: 7 RF: 0 Interventions: ED Discharge Assessment Last Done: 06/17/21 19:50 Discharge Date/Time: 06/17/21 20:02
--- NOTE | 2021-06-17 16:43 | ECG_ITS ---
Test Reason : SYNCOPE Blood Pressure : / mmHG Vent. Rate : 084 BPM Atrial Rate : 084 BPM P-R Int : 132 ms QRS Dur : 080 ms QT Int : 386 ms P-R-T Axes : 075 029 068 degrees QTc Int : 456 ms Normal sinus rhythm Normal ECG When compared with ECG of 04-MAR-2021 08:11, No significant change was found Referred By: Terry Crane Electronically Signed By:MINA DEAN MD
--- NOTE | 2021-06-17 16:50 | PC.NURSE ---
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
[2021-06-17 17:06] LABS: MANUAL DIFF FLAG NO
[2021-06-17 17:07] LABS: Basophils Percent Auto 0.6 % (0-2); Eosinophils Absolute Auto 0.1 X10*3/uL (0.0-0.4); Hematocrit 24.2 % (42-52); Hemoglobin 7.5 g/dl (14.0-18.0); Imm Gran Abs Auto 0.01 X10*3/uL (0.00-0.03); Imm Gran Pct Auto 0.2 % (0.0-0.4); Lymphocytes Absolute Auto 0.4 X10*3/uL (1.2-4.9); Lymphocytes Percent Auto 7.2 % (20-40); Mean Corpuscular Volume 93.4 fL (80-98); Mean Platelet Volume 9.8 fL (9.4-12.4); Monocytes Absolute Auto 0.5 X10*3/uL (0.1-1.2); Monocytes Percent Auto 10.1 % (2-11); Neutrophils Absolute Auto 3.9 X10*3/uL (2.0-8.3); Neutrophils Percent Auto 80.9 % (45-73); Platelet Count 253 X10*3/uL (160-400); Red Blood Count 2.59 X10*6/uL (4.60-5.80); Red Cell Distribution Width 19.9 % (11.0-16.0); White Blood Count 4.9 X10*3/uL (4.8-10.8)
[2021-06-17] MEDS: 0.9 % Sodium Chloride 1,000 ML 999 ML IVCONT ×2 (17:20→18:29)
[2021-06-17 17:34] LABS: Alanine Aminotransferase 11 U/L (0-40); Albumin Level 3.8 g/dL (3.5-5.0); Alkaline Phosphatase 70 U/L (39-117); Anion Gap 13 (12-20); Aspartate Amino Transferase 27 U/L (5-37); Bilirubin Total 0.4 mg/dL (0.0-1.0); Blood Urea Nitrogen 14 mg/dL (9-16); Calcium 8.9 mg/dL (8.4-10.2); Carbon Dioxide 25 mmol/L (22-29); Chloride 104 mmol/L (96-108); Estimated Glomerular Filt Rate > 60; Glucose Random 110 mg/dL (60-115); Magnesium 2.3 mg/dL (1.6-2.6); Potassium 3.5 mmol/L (3.3-5.1); Sodium 138 mmol/L (135-145); Total Protein 6.8 g/dL (6.5-8.0)
[2021-06-17 17:39] LABS: Acetone, serum QL Negative (Negative)
[2021-06-17 18:39] LABS: Appearance Urine CLEAR; Color Urine YELLOW; Glucose Urine UA NEG (NEG); Leukocyte Esterase Urine NEG (NEG); Nitrite Urine NEG (NEG); Specific Gravity - Urine <= 1.005 (1.005-1.025); Urine Blood NEG (NEG); Urine Ketones NEG (NEG); Urine Protein NEG (NEG-TRACE)
--- NOTE | 2021-06-17 19:58 | PC.NURSE ---
RN assumed care at 1900. Pt alert and oriented x4, calm and cooperative. Pt denies pain. Pt vitals remain stable. Pt denies dizziness, headache, weakness or blurred vision. Pt ambulating without issues and steady on his feet. Pt educated on dc and left ER with daughter. IV removed.
== END 2021-06-17 20:02 | disposition home or self-care (01) ==
PROVIDERS: Emergency Provider Internal Medicine; PCP Internal Medicine
DX: R55 Syncope and collapse (principal); E86.1 Hypovolemia; I10 Essential (primary) hypertension; J44.9 Chronic obstructive pulmonary disease, unspecified; Z79.899 Other long term (current) drug therapy
CPT/HCPCS: 36415; 80053; 81003; 82009; 83735; 85025; 93005; 96360; 96361; 99284; 99285

== ENCOUNTER → 2021-06-24 07:55 | Outpatient (REF) | payer MEDICARE, SELFPAY ==
--- NOTE | ~2021-06-24 | NM_ITS ---
Myocardial perfusion study Indication: Precordial pain to evaluate for myocardial ischemia Technique: The patient was brought in for a Lexiscan perfusion study on 06/24/2021. Patient performed low-level exercise and was injected 0.4 mg of Lexiscan intravenously. Within a minute of injection, 25 mCi of sestamibi was given intravenously. Images were obtained using the SPECT gamma camera interlaced with the gating device. Images were obtained in supine position. Resting perfusion study was performed on 06/25/2021. Patient was administered 25 mCi of sestamibi intravenously at rest. Images were then obtained in supine position. Images obtained with and without CT attenuation. Total DLP 72 mGy-cm. Images were processed with the software and compared side to side in short axis, horizontal long axis and vertical long axis views. Findings: The stress perfusion study showed nonattenuated images show minimally reduced uptake in the inferior wall of the LV myocardium. Remainder of the LV myocardium normally perfused. Attenuation corrected images show normal uptake of radiotracer in all segments of LV myocardium. The gated study shows normal LV systolic function with visually estimated LVEF of greater than 55%. LV cavity is normal in size. The gated study shows normal systolic wall thickening and contraction of segments. Resting study shows no change in perfusion pattern compared to stress perfusion study. Gating at rest reveals normal systolic wall motion with ejection fraction at 53%. The findings are consistent with normal myocardial perfusion. NM/NM cardiolite stress test Impression: 1. Myocardial perfusion imaging study shows normal myocardial perfusion 2. Gated LVEF is greater than 55% 3. Transient ischemic dilatation not present EKG is nondiagnostic for ischemia
--- NOTE | 2021-06-24 08:08 | CA_ITS ---
Acquisition Time: 2021-06-24 08:09:09 Total Exercise Time: 00:02:00 Test Indications: Chest Pain Medications: SEE H Protocol: LEXISCAN Max HR: 104 BPM 69% of Pred: 150 BPM Max BP: 120/080 mmHG Max Work Load: 1.0 METS Pharmacological stress test with Lexiscan injection, while sitting and kicking his legs, without anginal symptoms, without arrythmia, with normotensive response to injection, with nondiagnostic EKG for ischemia. Nuclear images pending. Test reviewed with Dr Genao. Referred By: Bennie Genao Overread By: WADE BOSWELL
== END ==
LOC: HO.CARD 07:55
PROVIDERS: PCP Internal Medicine; Visit Provider Internal Medicine
DX: R07.2 Precordial pain (principal)
CPT/HCPCS: 78452; 93017; A9500; J0280; J2785

== ENCOUNTER 2021-09-23 18:48 | Inpatient (IN) | payer MEDICARE, SELFPAY ==
--- NOTE | ~2021-09-23 | XR_ITS ---
EXAMINATION: XR CHEST CLINICAL INFORMATION: Chest pain COMPARISON: CTA chest 03/26/2021 TECHNIQUE: Frontal view of the chest was obtained. FINDINGS: The lungs are well-expanded with patchy ill-defined opacity in the right upper and midlung and ill-defined nodular opacity in the left midlung. There is no pleural effusion or pneumothorax. The heart size and pulmonary vascularity is normal. No gross bony abnormality seen. XR/XR chest 1V IMPRESSION: Patchy ill-defined opacities in the right upper lobe, right lower lobe and ill-defined nodular opacity in the left midlung parahilar region. These findings may represent low-grade inflammatory process likely chronic. The ill-defined nodule in the left midlung is new or larger. Corresponding smaller nodule was visualized on the previous CT chest exam 03/26/2021.
[2021-09-23 18:58] VITALS: BP 95/58; PULSE 95; O2SAT 100
--- NOTE | 2021-09-23 19:03 | ECG_ITS ---
Test Reason : Chest pain Blood Pressure : / mmHG Vent. Rate : 094 BPM Atrial Rate : 094 BPM P-R Int : 130 ms QRS Dur : 072 ms QT Int : 370 ms P-R-T Axes : 076 043 073 degrees QTc Int : 462 ms Normal sinus rhythm Nonspecific T wave abnormality Prolonged QT Abnormal ECG When compared with ECG of 17-JUN-2021 16:46, No significant change was found Referred By: Terry Crane Electronically Signed By:Ilya Lomax
[2021-09-23 19:24] VITALS: BP 99/50; PULSE 93; RESP 18; TEMP 36.8; O2SAT 100; BMI 20.3
[2021-09-23 19:41] LABS: MANUAL DIFF FLAG NO
[2021-09-23 19:43] LABS: Basophils Percent Auto 0.1 % (0-2); Eosinophils Absolute Auto 0.1 X10*3/uL (0.0-0.4); Eosinophils Percent Auto 0.7 % (0-4); Imm Gran Abs Auto 0.05 X10*3/uL (0.00-0.03); Imm Gran Pct Auto 0.5 % (0.0-0.4); Lymphocytes Absolute Auto 0.5 X10*3/uL (1.2-4.9); Lymphocytes Percent Auto 4.3 % (20-40); Mean Corpuscular HGB Conc 32.4 g/dl (31.0-36.0); Mean Corpuscular Hemoglobin 29.9 pg (27.0-33.0); Mean Corpuscular Volume 92.3 fL (80.0-98.0); Mean Platelet Volume 9.9 fL (9.4-12.4); Monocytes Absolute Auto 1.1 X10*3/uL (0.1-1.2); Monocytes Percent Auto 10.4 % (2-11); Neutrophils Absolute Auto 9.1 x10*3/uL (2.0-8.3); Platelet Count 409 X10*3/uL (160-400); Red Blood Count 1.94 X10*6/uL (4.60-5.80); Red Cell Distribution Width 18.2 % (11.0-16.0); White Blood Count 10.8 X10*3/uL (4.8-10.8)
[2021-09-23 19:50] LABS: COVID-19 Test Positive (Negative); INTERNATIONAL NORM RATIO 1.2 (0.9-1.1); Prothrombin Time 13.4 SEC (9.9-13.0)
[2021-09-23 19:51] LABS: Hematocrit 17.9 % (42.0-52.0); Hemoglobin 5.8 g/dl (14.0-18.0)
[2021-09-23 19:58] LABS: Alanine Aminotransferase 8 U/L (0-40); Albumin Level 3.3 g/dL (3.5-5.0); Alkaline Phosphatase 69 U/L (39-117); Anion Gap 11 (12-20); Aspartate Amino Transferase 16 U/L (5-37); Bilirubin Total 0.2 mg/dL (0.0-1.0); Blood Urea Nitrogen 17 mg/dL (9-16); Carbon Dioxide 26 mmol/L (22-29); Chloride 107 mmol/L (96-108); Creatinine Clr Calc Pharmacy 48.9; Estimated Glomerular Filt Rate > 60; Glucose Random 102 mg/dL (60-115); Potassium 3.8 mmol/L (3.3-5.1); Sodium 140 mmol/L (135-145); Total Protein 6.3 g/dL (6.5-8.0)
--- NOTE | 2021-09-23 19:58 | ED_ITS ---
HPI - Dizziness General Chief Complaint: Chest Pain Stated Complaint: dizziness Time Seen by Provider: 09/23/21 18:58 Source: patient Mode of arrival: ambulatory Limitations: no limitations History of Present Illness HPI Narrative: Patient is 70 years old with history of throat cancer status post radiation chemotherapy with chronic anemia was admitted here on 02/25 for similar complaints of dizziness noticed to be anemic guaiac was negative loss likely from rectal bleed after using NSAID and received blood transfusion patient been having dizziness since yesterday almost fell when he stood of in the morning Shannon significant injuries or loss of consciousness no black stools or melena feels her heart beating fast and chest heaviness since yesterday Related Data Home Medications Medication Instructions Recorded Confirmed cyanocobalamin (vitamin B-12) 1 tab PO DAILY 06/21/20 06/04/21 1,000 mcg tablet (Vitamin B-12) duloxetine 30 mg capsule,delayed 30 mg PO DAILY 06/21/20 06/04/21 release duloxetine 60 mg capsule,delayed 60 mg PO DAILY 06/21/20 06/04/21 release ferrous sulfate 325 mg (65 mg 325 mg PO DAILY 06/21/20 06/04/21 iron) tablet (Iron (ferrous sulfate)) nitroglycerin 0.4 mg sublingual 1 tab SUBLINGUAL NEEDED PRN 06/21/20 06/04/21 tablet omeprazole 40 mg capsule,delayed 40 mg PO DAILY 06/21/20 03/20/21 release umeclidinium 62.5 mcg-vilanterol 1 inh INHALATION DAILY 06/21/20 03/20/21 25 mcg/actuation powdr for inhalation (Anoro Ellipta) fluticasone propionate 110 2 inh INHALATION BID 09/28/20 06/04/21 mcg/actuation HFA aerosol inhaler meclizine 25 mg tablet 25 mg PO Q8H PRN 09/28/20 06/04/21 naproxen 500 mg tablet 500 mg PO BID 09/28/20 06/04/21 artifi.tears(hypromellose)(PF) 0.3 1 drp OPHTHALMIC (EYE) BID PRN 03/04/21 06/04/21 % eye drops capsaicin-menthol 0.025 %-1.25 % 1 patch TOPICAL TID 03/04/21 06/04/21 topical patch (Salonpas (capsaicin-menthol)) gabapentin 400 mg capsule 1 cap PO TID 03/04/21 06/04/21 levothyroxine 75 mcg tablet 1 tab PO DAILY 03/04/21 06/04/21 losartan 50 mg tablet 1 tab PO DAILY 03/04/21 06/04/21 tizanidine 4 mg tablet 1 tab PO BEDTIME 03/04/21 03/20/21 triamcinolone acetonide 0.5 % 1 appl TOPICAL BID 03/04/21 03/20/21 topical cream acetaminophen 500 mg tablet 500 mg PO TID PRN 05/14/21 06/04/21 atorvastatin 80 mg tablet 80 mg PO BEDTIME 06/04/21 06/04/21 Previous Rx's Medication Instructions Recorded tramadol 50 mg tablet 50 mg PO TID PRN #90 tab 02/12/21 fluticasone propionate 50 1 spray INTRANASAL BID #16 g 05/14/21 mcg/actuation nasal spray,suspension guaifenesin 100 mg/5 mL oral liquid 200 mg (10 mL) PO Q4H PRN #1500 ml 05/14/21 loratadine 5 mg/5 mL oral solution 5 mg (5 mL) PO BID #120 ml 05/14/21 (Children's Claritin) sodium chloride 0.65 % nasal spray 1 spray INTRANASAL BID PRN #60 ml 05/14/21 aerosol (Divide Nasal) levofloxacin 750 mg tablet 750 mg PO DAILY 7 Days #7 tab 05/16/21 albuterol sulfate 90 mcg/actuation 2 puff PO Q4-6H PRN #8.5 g 08/22/21 aerosol inhaler Allergies Allergy/AdvReac Type Severity Reaction Status Date / Time Penicillins Allergy Rash Verified 06/04/21 13:30 aspirin [ASA] AdvReac Intermediate GI BLEED, Verified 06/04/21 13:30 Headaches Review of Systems Review of Systems: Yes all other systems are reviewed and are negative PMFSH Past Medical History Medical History Anemia Aortic aneurysm Arthritis Back pain Cancer COPD (chronic obstructive pulmonary disease) Depression Difficulty swallowing Elevated cholesterol GERD (gastroesophageal reflux disease) History of chemotherapy HTN (hypertension) Hx of radiation therapy Osteoarthritis of left shoulder Pulmonary nodule Thyroid disease Surgical History H/O colonoscopy History of back surgery History of esophagogastroduodenoscopy (EGD) Family History Family History Father Brain cancer Mother CVD (cardiovascular disease) Maternal Aunt Diabetes Social History Social History Household Members: Spouse and Children Household Members Other:: 3 Housing: Apartment Do you presently have visiting nurse or other home services: Yes Alcohol intake: former Patient Tobacco Use Status: Former Tobacco user Quit Date: 30 yrs ago Tobacco use type: Cigarette Cigarette Packs Per Day: 3 Cigarettes Per Day: 60.0 Years Smoked: 25 e-Cigarette/Vaping Use: Never Used Second Hand Smoke Exposure: No Use of substances other than those prescribed or required for medical reasons: No Advance Directives: Yes Advance Directives on File: Yes Advance Directives Date on File: 03/04/21 service: No Current occupational status: disabled Physical Exam Vital Signs: Vital Signs: Last Vital Signs Temp 98.3 F 09/24/21 01:06 Pulse 88 09/24/21 01:06 Resp 16 09/24/21 01:06 BP 130/67 09/24/21 01:06 Pulse Ox 100 09/23/21 22:00 BMI result Body Mass Index 20.3 Appearance: Alert. Oriented X3. No acute distress. Eyes: pallor+++ ENT: Pharynx normal. Oral Mucosa moist Neck: Normal inspection. Neck supple. CVS: Normal heart rate and rhythm. Pulses normal. Respiratory: No respiratory distress. Equal air entry bilateral, no wheezing/rales/rhonchi Abdomen: Soft and nontender. Bowel sounds are present, no mass palpable, no CVA tenderness Skin: Skin warm and dry. Normal skin color. Normal skin turgor. rectal: stool black stools positive for occult blood Extremities: No lower extremity edema. No calf tenderness Neuro: Oriented X 3. No motor deficit. No sensory deficit.No cerebellar signs , cranial nerves II-XII intact MDM - Dizziness MDM Narrative Medical decision making narrative: Patient with significant anemia with guaiac- positive stool had endoscopy in 02/25 which showed esophageal stricture no ulcer was seen, not on any NSAID, stool black with guaiac positive incidentally found to be COVID positive without any hypoxia will admit patient Medical Records Attestation: I reviewed the patient's medical records. Lab Data Attestation: I reviewed the patient's lab results. Result diagrams: 09/23/21 19:36 09/23/21 19:36 Labs: Lab Results 09/23/21 09/23/21 09/23/21 Range/Units 19:36 19:36 19:36 WBC 10.8 (4.8-10.8) X10*3/uL RBC 1.94 L (4.60-5.80) X10*6/uL Hgb 5.8 L* (14.0-18.0) g/dl Hct 17.9 L* (42.0-52.0) % MCV 92.3 (80.0-98.0) fL MCH 29.9 (27.0-33.0) pg MCHC 32.4 (31.0-36.0) g/dl RDW 18.2 H (11.0-16.0) % Plt Count 409 H (160-400) X10*3/uL MPV 9.9 (9.4-12.4) fL Immature Gran % (Auto) 0.5 H (0.0-0.4) % Neut % (Auto) 84.0 H (45-73) % Lymph % (Auto) 4.3 L (20-40) % [place] % (Auto) 10.4 (2-11) % Eos % (Auto) 0.7 (0-4) % Baso % (Auto) 0.1 (0-2) % Lymph # (Auto) 0.5 L (1.2-4.9) X10*3/uL [place] # (Auto) 1.1 (0.1-1.2) X10*3/uL Eos # (Auto) 0.1 (0.0-0.4) X10*3/uL Baso # (Auto) 0.0 (0.0-0.2) X10*3/uL Abs Immat Gran (auto) 0.05 H (0.00-0.03) X10*3/uL Absolute Neuts (auto) 9.1 H (2.0-8.3) x10*3/uL Absolute Nucleated RBC 0.000 (0.0-0.012) X10*3/uL Nucleated RBC % (auto) 0.0 (0.0-0.2) /100WBC PT 13.4 H (9.9-13.0) SEC INR 1.2 H (0.9-1.1) Sodium 140 (135-145) mmol/L Potassium 3.8 (3.3-5.1) mmol/L Chloride 107 (96-108) mmol/L Carbon Dioxide 26 (22-29) mmol/L Anion Gap 11 L (12-20) BUN 17 H (9-16) mg/dL Creatinine 1.17 (0.5-1.4) mg/dL Estim Creat Clear Calc 48.9 Estimated GFR > 60 Random Glucose 102 (60-115) mg/dL Calcium 9.0 (8.4-10.2) mg/dL Total Bilirubin 0.2 (0.0-1.0) mg/dL AST 16 D (5-37) U/L ALT 8 (0-40) U/L Alkaline Phosphatase 69 (39-117) U/L Troponin I High Sens (<3.5-35.0) ng/L Total Protein 6.3 L (6.5-8.0) g/dL Albumin 3.3 L (3.5-5.0) g/dL Stool Occult Blood (NEGATIVE) COVID-19 (VIC) (Negative) COVID-19 Clin Com Blood Type Antibody Screen Crossmatch 09/23/21 09/23/21 09/23/21 Range/Units 19:36 19:36 20:39 WBC (4.8-10.8) X10*3/uL RBC (4.60-5.80) X10*6/uL Hgb (14.0-18.0) g/dl Hct (42.0-52.0) % MCV (80.0-98.0) fL MCH (27.0-33.0) pg MCHC (31.0-36.0) g/dl RDW (11.0-16.0) % Plt Count (160-400) X10*3/uL MPV (9.4-12.4) fL Immature Gran % (Auto) (0.0-0.4) % Neut % (Auto) (45-73) % Lymph % (Auto) (20-40) % [place] % (Auto) (2-11) % Eos % (Auto) (0-4) % Baso % (Auto) (0-2) % Lymph # (Auto) (1.2-4.9) X10*3/uL [place] # (Auto) (0.1-1.2) X10*3/uL Eos # (Auto) (0.0-0.4) X10*3/uL Baso # (Auto) (0.0-0.2) X10*3/uL Abs Immat Gran (auto) (0.00-0.03) X10*3/uL Absolute Neuts (auto) (2.0-8.3) x10*3/uL Absolute Nucleated RBC (0.0-0.012) X10*3/uL Nucleated RBC % (auto) (0.0-0.2) /100WBC PT (9.9-13.0) SEC INR (0.9-1.1) Sodium (135-145) mmol/L Potassium (3.3-5.1) mmol/L Chloride (96-108) mmol/L Carbon Dioxide (22-29) mmol/L Anion Gap (12-20) BUN (9-16) mg/dL Creatinine (0.5-1.4) mg/dL Estim Creat Clear Calc Estimated GFR Random Glucose (60-115) mg/dL Calcium (8.4-10.2) mg/dL Total Bilirubin (0.0-1.0) mg/dL AST (5-37) U/L ALT (0-40) U/L Alkaline Phosphatase (39-117) U/L Troponin I High Sens 11.6 (<3.5-35.0) ng/L Total Protein (6.5-8.0) g/dL Albumin (3.5-5.0) g/dL Stool Occult Blood (NEGATIVE) COVID-19 (VIC) Positive A (Negative) COVID-19 Clin Com See Note Blood Type O Positive Antibody Screen NEGATIVE Crossmatch See Detail 09/24/21 Range/Units 00:20 WBC (4.8-10.8) X10*3/uL RBC (4.60-5.80) X10*6/uL Hgb (14.0-18.0) g/dl Hct (42.0-52.0) % MCV (80.0-98.0) fL MCH (27.0-33.0) pg MCHC (31.0-36.0) g/dl RDW (11.0-16.0) % Plt Count (160-400) X10*3/uL MPV (9.4-12.4) fL Immature Gran % (Auto) (0.0-0.4) % Neut % (Auto) (45-73) % Lymph % (Auto) (20-40) % [place] % (Auto) (2-11) % Eos % (Auto) (0-4) % Baso % (Auto) (0-2) % Lymph # (Auto) (1.2-4.9) X10*3/uL [place] # (Auto) (0.1-1.2) X10*3/uL Eos # (Auto) (0.0-0.4) X10*3/uL Baso # (Auto) (0.0-0.2) X10*3/uL Abs Immat Gran (auto) (0.00-0.03) X10*3/uL Absolute Neuts (auto) (2.0-8.3) x10*3/uL Absolute Nucleated RBC (0.0-0.012) X10*3/uL Nucleated RBC % (auto) (0.0-0.2) /100WBC PT (9.9-13.0) SEC INR (0.9-1.1) Sodium (135-145) mmol/L Potassium (3.3-5.1) mmol/L Chloride (96-108) mmol/L Carbon Dioxide (22-29) mmol/L Anion Gap (12-20) BUN (9-16) mg/dL Creatinine (0.5-1.4) mg/dL Estim Creat Clear Calc Estimated GFR Random Glucose (60-115) mg/dL Calcium (8.4-10.2) mg/dL Total Bilirubin (0.0-1.0) mg/dL AST (5-37) U/L ALT (0-40) U/L Alkaline Phosphatase (39-117) U/L Troponin I High Sens (<3.5-35.0) ng/L Total Protein (6.5-8.0) g/dL Albumin (3.5-5.0) g/dL Stool Occult Blood POSITIVE (NEGATIVE) COVID-19 (VIC) (Negative) COVID-19 Clin Com Blood Type Antibody Screen Crossmatch Discharge Plan Discharge Clinical Impression: Acute GI bleeding, COVID-19, Weakness, Severe anemia Patient Disposition: Admitted As Inpatient
[2021-09-23 20:03] LABS: Troponin-I High Sensitivity 11.6 ng/L (<3.5-35.0)
[2021-09-23 22:00] VITALS: BP 107/57; PULSE 87; RESP 16; O2SAT 100
[2021-09-23 23:06] VITALS: BP 119/63; PULSE 82; RESP 13; TEMP 36.8
--- NOTE | 2021-09-23 23:11 | PC.NURSE ---
update: pt states that he had a bloody nose last night and when he woke up in the morning he was weak and dizzy.
[2021-09-23 23:21] VITALS: BP 119/67; PULSE 87; RESP 16; TEMP 36.8
[2021-09-23 23:22] VITALS: BP 130/67; PULSE 88; RESP 16; TEMP 36.8
[2021-09-24] VITALS (13 sets, daily range): BP systolic 97–152; BP diastolic 57–78; PULSE 86–98; RESP 12–20; TEMP 36.8–37.4; O2SAT 97–100
[2021-09-24 00:30] LABS: OBS Int Ctl Valid YES; OBS1 POSITIVE (NEGATIVE)
--- NOTE | 2021-09-24 00:45 | P.HPHOSP_ITS ---
History of Present Illness Date of Service: 09/24/21 Chief Complaint: Generalized weakness 70-year-old male with a past medical history of hypertension, hyperlipidemia, COPD, history of throat cancer status post chemotherapy/radiotherapy; history of aortic aneurysm, anemia, thyroid disease, history of GI bleed status post EGD, presented to the hospital today with a chief complaint of generalized weakness/lightheadedness/dizziness. Patient reports that over the past few days he has been having intermittent e pisodes of black stools. Past couple days he has been having shortness of breath which has been worsening, associated dyspnea on exertion, chest heaviness. Also reports episodes of epistaxis. Denies any numbness tingling or focal weakness. Denies any fever chills cough. Denies any falls or trauma. Patient currently denies currently using any [id number] pain medications like naproxen. Review of all other systems is negative except mentioned above ER course: Per ER team patient on presentation noted to be pale, hemoglobin noted to be 5.8-ordered 2 units of PRBC. On rectal exam noted to have black stool and guaiac positive. Blood pressure stable. Admitted to the hospital for further management [facility] Medical History Anemia Aortic aneurysm Arthritis Back pain Cancer COPD (chronic obstructive pulmonary disease) Depression Difficulty swallowing Elevated cholesterol GERD (gastroesophageal reflux disease) History of chemotherapy HTN (hypertension) Hx of radiation therapy Osteoarthritis of left shoulder Pulmonary nodule Thyroid disease Family History Father Brain cancer Mother CVD (cardiovascular disease) Maternal Aunt Diabetes Pertinent family history: As mentioned above Surgical History H/O colonoscopy History of back surgery History of esophagogastroduodenoscopy (EGD) Social History Household Members: Spouse and Children Household Members Other:: 3 Housing: Apartment Do you presently have visiting nurse or other home services: Yes Alcohol intake: former Patient Tobacco Use Status: Former Tobacco user Quit Date: 30 yrs ago Tobacco use type: Cigarette Cigarette Packs Per Day: 3 Cigarettes Per Day: 60.0 Years Smoked: 25 e-Cigarette/Vaping Use: Never Used Second Hand Smoke Exposure: No Use of substances other than those prescribed or required for medical reasons: No Advance Directives: Yes Advance Directives on File: Yes Advance Directives Date on File: 03/04/21 service: No Current occupational status: disabled Meds Allergies Allergy/AdvReac Type Severity Reaction Status Date / Time Penicillins Allergy Rash Verified 06/04/21 13:30 aspirin [ASA] AdvReac Intermediate GI BLEED, Verified 06/04/21 13:30 Headaches Active Medications: Current Medications Dextrose/Sodium Chloride (D51/2ns) 1,000 mls @ 50 mls/hr IVCONT .Q20H [facility] Melatonin (Melatonin 3 Mg Tablet) 6 mg PO BEDTIME PRN PRN Reason: Insomnia Pantoprazole Sodium (Pantoprazole Sodium 40 Mg/10 Ml Vial) 40 mg IVPUSH BID@0630,1630 [facility] Senna (Sennosides 8.6 Mg Tablet) 17.2 mg PO BEDTIME PRN PRN Reason: Constipation Sodium Chloride (0.9 % Sodium Chloride Flush 3 Ml Syringe) 3 ml IVFLUSH QSHIFT [facility] Home Medications Medication Instructions Recorded Confirmed Last Taken Type cyanocobalamin (vitamin B-12) 1 tab PO DAILY 06/21/20 06/04/21 Unknown History 1,000 mcg tablet (Vitamin B-12) duloxetine 30 mg capsule,delayed 30 mg PO DAILY 06/21/20 06/04/21 03/04/21 Histo ry release duloxetine 60 mg capsule,delayed 60 mg PO DAILY 06/21/20 06/04/21 03/04/21 History release ferrous sulfate 325 mg (65 mg 325 mg PO DAILY 06/21/20 06/04/21 Unknown History iron) tablet (Iron (ferrous sulfate)) nitroglycerin 0.4 mg sublingual 1 tab SUBLINGUAL NEEDED PRN 06/21/20 06/04/21 Unknown History tablet omeprazole 40 mg capsule,delayed 40 mg PO DAILY 06/21/20 03/20/21 Unknown History release umeclidinium 62.5 mcg-vilanterol 1 inh INHALATION DAILY 06/21/20 03/20/21 Unknown History 25 mcg/actuation powdr for inhalation (Anoro Ellipta) fluticasone propionate 110 2 inh INHALATION BID 09/28/20 06/04/21 Unknown History mcg/actuation HFA aerosol inhaler meclizine 25 mg tablet 25 mg PO Q8H PRN 09/28/20 06/04/21 Unknown History naproxen 500 mg tablet 500 mg PO BID 09/28/20 06/04/21 Unknown History artifi.tears(hypromellose)(PF) 0.3 1 drp OPHTHALMIC (EYE) BID PRN 03/04/21 06/04/21 Unknown History % eye drops capsaicin-menthol 0.025 %-1.25 % 1 patch TOPICAL TID 03/04/21 06/04/21 Unknown History topical patch (Salonpas (capsaicin-menthol)) gabapentin 400 mg capsule 1 cap PO TID 03/04/21 06/04/21 Unknown History levothyroxine 75 mcg tablet 1 tab PO DAILY 03/04/21 06/04/21 Unknown History losartan 50 mg tablet 1 tab PO DAILY 03/04/21 06/04/21 Unknown History tizanidine 4 mg tablet 1 tab PO BEDTIME 03/04/21 03/20/21 Unknown History triamcinolone acetonide 0.5 % 1 appl TOPICAL BID 03/04/21 03/20/21 Unknown History topical cream acetaminophen 500 mg tablet 500 mg PO TID PRN 05/14/21 06/04/21 Unknown History atorvastatin 80 mg tablet 80 mg PO BEDTIME 06/04/21 06/04/21 Unknown History Physical Exam Vital Signs and Narrative: Vital Signs: Last Vital Signs Temp 98.3 F 09/23/21 23:21 Pulse 87 09/23/21 23:21 Resp 16 09/23/21 23:21 BP 119/67 09/23/21 23:21 Pulse Ox 100 09/23/21 22:00 BMI result Body Mass Index 20.3 Gen: Appears be in no acute distress HEENT: NCAT, Moist mucosa. Pulmonary: Vesicular breath sounds, fair air entry CVS: Normal S1-S2 Abdomen: BS+, Soft, Nontender Extremities: Warm well perfused Neuro: Alert and awake. Results Labs CBC and Chem 7: 09/23/21 19:36 09/23/21 19:36 Labs: Laboratory Results - last 24 hr 09/23/21 09/23/21 09/23/21 19:36 19:36 19:36 MCV 92.3 MCH 29.9 MCHC 32.4 RDW 18.2 H Plt Count 409 H MPV 9.9 Immature Gran % (Auto) 0.5 H Neut % (Auto) 84.0 H Lymph % (Auto) 4.3 L [place] % (Auto) 10.4 Eos % (Auto) 0.7 Baso % (Auto) 0.1 Lymph # (Auto) 0.5 L [place] # (Auto) 1.1 Eos # (Auto) 0.1 Baso # (Auto) 0.0 Abs Immat Gran (auto) 0.05 H Absolute Neuts (auto) 9.1 H Absolute Nucleated RBC 0.000 Nucleated RBC % (auto) 0.0 PT 13.4 H INR 1.2 H Anion Gap 11 L Estim Creat Clear Calc 48.9 Estimated GFR > 60 Random Glucose 102 Calcium 9.0 Total Bilirubin 0.2 AST 16 D ALT 8 Alkaline Phosphatase 69 Troponin I High Sens Total Protein 6.3 L Albumin 3.3 L Stool Occult Blood COVID-19 (VIC) COVID-19 Clin Com Blood Type Antibody Screen Crossmatch 09/23/21 09/23/21 09/23/21 19:36 19:36 20:39 MCV MCH MCHC RDW Plt Count MPV Immature Gran % (Auto) Neut % (Auto) Lymph % (Auto) [place] % (Auto) Eos % (Auto) Baso % (Auto) Lymph # (Auto) [place] # (Auto) Eos # (Auto) Baso # (Auto) Abs Immat Gran (auto) Absolute Neuts (auto) Absolute Nucleated RBC Nucleated RBC % (auto) PT INR Anion Gap Estim Creat Clear Calc Estimated GFR Random Glucose Calcium Total Bilirubin AST ALT Alkaline Phosphatase Troponin I High Sens 11.6 Total Protein Albumin Stool Occult Blood COVID-19 (VIC) Positive A COVID-19 Clin Com See Note Blood Type O Positive Antibody Screen NEGATIVE Crossmatch See Detail 09/24/21 00:20 MCV MCH MCHC RDW Plt Count MPV Immature Gran % (Auto) Neut % (Auto) Lymph % (Auto) [place] % (Auto) Eos % (Auto) Baso % (Auto) Lymph # (Auto) [place] # (Auto) Eos # (Auto) Baso # (Auto) Abs Immat Gran (auto) Absolute Neuts (auto) Absolute Nucleated RBC Nucleated RBC % (auto) PT INR Anion Gap Estim Creat Clear Calc Estimated GFR Random Glucose Calcium Total Bilirubin AST ALT Alkaline Phosphatase Troponin I High Sens Total Protein Albumin Stool Occult Blood POSITIVE COVID-19 (VIC) COVID-19 Clin Com Blood Type Antibody Screen Crossmatch Imaging Radiologist's Impressions: Impressions Chest X-Ray 09/23/21 19:08 IMPRESSION: Patchy ill-defined opacities in the right upper lobe, right lower lobe and ill-defined nodular opacity in the left midlung parahilar region. These findings may represent low-grade inflammatory process likely chronic. The ill-defined nodule in the left midlung is new or larger. Corresponding smaller nodule was visualized on the previous CT chest exam 03/26/2021. Assessment and Plan (1) Acute GI bleeding: Status: Acute (2) COVID-19: Status: Acute (3) Severe anemia: Status: Acute (4) Weakness: Status: Acute 70-year-old male with a past medical history of hypertension, hyperlipidemia, COPD, history of throat cancer status post chemotherapy/radiotherapy; history of aortic aneurysm, anemia, thyroid disease, history of GI bleed status post EGD, presented to the hospital today with a chief complaint of generalized weakness/lightheadedness/dizziness/black stools/e pistaxis. Noted to have anemia in the setting of GI bleed. Admitted for further management. Symptomatic anemia: In the setting of GI blood loss. Concern for upper GI bleed. IV PPI b.i.d. GI consult Hemoglobin on presentation was 5.8. Being transfused 2 units of blood. Serial H&H blood pressure currently stable. Will monitor on telemetry. NPO for now Gentle IV fluids Chest heaviness: Currently resolved. EKG nonischemic. Initial troponin 11.6. Telemetry. Cycle cardiac enzymes. COVID-19 positive: Isolation precautions. Currently saturating 100% on room air. Chest x-ray showed patchy infiltrates. Supportive care. History of hypertension: Hold home antihypertensives. History of COPD: Stable DVT prophylaxis: SCD boots Code status: Full code Quality Stroke Does the patient have a stroke diagnosis?: No VTE Prior VTE?: No VTE Risk Level:: Medical - low VTE Device Contraindication: N/A - Device Ordered VTE Drug Contraindication: Treatment Not Indicated
[2021-09-24] MEDS: Pantoprazole Sodium 40 MG/10 ML VIAL IVPUSH ×2 (01:07→16:13)
--- NOTE | 2021-09-24 01:38 | PC.NURSE ---
pt is on his 2nd unit of prbc and no s.s of reaction noted.
[2021-09-24 02:13] LABS: Troponin-I High Sensitivity 10.3 ng/L (<3.5-35.0)
[2021-09-24] MEDS: Dextrose 5 % and 0.45 % NaCl 1,000 ML 50 ML IVCONT (03:37)
--- NOTE | 2021-09-24 03:39 | PC.NURSE ---
pt received both units of prbc with no s/s of reaction. pt resting comfortably. skin warm and dry. plan is for admitt. pt is aware.
[2021-09-24 07:14] LABS: MANUAL DIFF FLAG NO
[2021-09-24 07:17] LABS: Basophils Percent Auto 0.5 % (0-2); Eosinophils Absolute Auto 0.1 X10*3/uL (0.0-0.4); Eosinophils Percent Auto 1.8 % (0-4); Hematocrit 23.6 % (42.0-52.0); Hemoglobin 7.6 g/dl (14.0-18.0); Imm Gran Abs Auto 0.04 X10*3/uL (0.00-0.03); Imm Gran Pct Auto 0.5 % (0.0-0.4); Lymphocytes Absolute Auto 0.7 X10*3/uL (1.2-4.9); Mean Corpuscular HGB Conc 32.2 g/dl (31.0-36.0); Mean Corpuscular Hemoglobin 29.6 pg (27.0-33.0); Mean Corpuscular Volume 91.8 fL (80.0-98.0); Mean Platelet Volume 9.9 fL (9.4-12.4); Monocytes Percent Auto 12.4 % (2-11); Neutrophils Absolute Auto 5.9 x10*3/uL (2.0-8.3); Neutrophils Percent Auto 75.8 % (45-73); Platelet Count 351 X10*3/uL (160-400); Red Blood Count 2.57 X10*6/uL (4.60-5.80); Red Cell Distribution Width 16.7 % (11.0-16.0); White Blood Count 7.7 X10*3/uL (4.8-10.8)
[2021-09-24 07:37] LABS: Anion Gap 10 (12-20); Blood Urea Nitrogen 13 mg/dL (9-16); Calcium 8.6 mg/dL (8.4-10.2); Carbon Dioxide 27 mmol/L (22-29); Chloride 107 mmol/L (96-108); Creatinine Clr Calc Pharmacy 75.4; Estimated Glomerular Filt Rate > 60; Glucose Random 98 mg/dL (60-115); Potassium 4.1 mmol/L (3.3-5.1); Sodium 140 mmol/L (135-145)
--- NOTE | 2021-09-24 08:25 | PHA.MEDREC ---
Pharmacy Consult ? Medication Reconciliation Pharmacy has completed the medication reconciliation. Patient unsure what the names of his inhaler are. He report he had a disk and pump he uses every day. Reports using medications filled around 6 months prior including levothyroxine. Nitroglylcerin has no record of being filled in the last year. Velma Berger, PharmD
--- NOTE | 2021-09-24 08:26 | PM.GICN ---
History of Present Illness Data of Consult Service Date: 09/24/21 Requesting physician: Riaz Oreilly Primary Care Provider: Unknown Physician HPI Reason for consult: melena 70-year-old male with a past medical history of hypertension, hyperlipidemia, COPD, history of throat cancer status post chemotherapy/radiotherapy; history of? aortic aneurysm, anemia, thyroid disease, who I am seeing for assessment for melena Patient presented with few days hx of generalized weakness, lightheadedness and dizziness.?He also noted black stools as well as increasing worsening SOB on exertion, with chest heaviness and epistaxis for at least one day Denies abdominal pain no rectal bleeding swallowing has been worse recently Denies any fever chills cough.? denies taking any nsaids He has chronic dysphagia and has required serial esophageal dilations in the past hemoglobin noted to be 5.8- and 2 units of PRBC given with appropriate incrementation , also COVID positive with CXR with mid lung nodular lesion LAST EGD 02/2021 with dilation of esophageal stricture, barretts esophagus noted. Review of Systems Review of Systems: Constitutional : No Weight loss, No Fever, No Chills ENT/Mouth : No sore throat, No Rhinorrhea Eyes: No Swelling, No Redness Cardiovascular : No Chest Pain, No SOB, No Edema Respiratory : + Cough, + Sputum, No Wheezing Gastrointestinal : see HPI Genitourinary : NO Dysuria, No Urinary Frequency, No Hematuria, No Urgency Musculoskeletal : No joint pain, No Myalgias, No Joint Swelling Skin : No Skin Lesions, No rash Neuro : No Weakness, No Numbness, No Dizziness, No Headache Psych : No Anxiety/Panic, No Depression Heme/Lymph: No Bruising, No Lymphadenopathy Endocrine : No Polyuria, No Polydipsia All other systems reviewed and are negative. [facility] Past Medical History Medical History Anemia Aortic aneurysm Arthritis Back pain Cancer COPD (chronic obstructive pulmonary disease) Depression Difficulty swallowing Elevated cholesterol GERD (gastroesophageal reflux disease) History of chemotherapy HTN (hypertension) Hx of radiation therapy Osteoarthritis of left shoulder Pulmonary nodule Thyroid disease Family History Family History Father Brain cancer Mother CVD (cardiovascular disease) Maternal Aunt Diabetes Surgical History Surgical History H/O colonoscopy History of back surgery History of esophagogastroduodenoscopy (EGD) Social History Social History Household Members: Spouse and Children Household Members Other:: 3 Housing: Apartment Do you presently have visiting nurse or other home services: Yes Alcohol intake: former Patient Tobacco Use Status: Former Tobacco user Quit Date: 30 yrs ago Tobacco use type: Cigarette Cigarette Packs Per Day: 3 Cigarettes Per Day: 60.0 Years Smoked: 25 e-Cigarette/Vaping Use: Never Used Second Hand Smoke Exposure: No Advance Directives Date on File: 03/04/21 service: No Current occupational status: disabled Meds Allergies Allergy/AdvReac Type Severity Reaction Status Date / Time Penicillins Allergy Rash Verified 06/04/21 13:30 aspirin [ASA] AdvReac Intermediate GI BLEED, Verified 06/04/21 13:30 Headaches Active Medications: Current Medications Dextrose/Sodium Chloride (D51/2ns) 1,000 mls @ 50 mls/hr IVCONT .Q20H [facility] Last Admin: 09/24/21 03:37 Dose: 50 mls/hr Documented by: Melatonin (Melatonin 3 Mg Tablet) 6 mg PO BEDTIME PRN PRN Reason: Insomnia Pantoprazole Sodium (Pantoprazole Sodium 40 Mg/10 Ml Vial) 40 mg IVPUSH BID@0630,1630 [facility] Senna (Sennosides 8.6 Mg Tablet) 17.2 mg PO BEDTIME PRN PRN Reason: Constipation Sodium Chloride (0.9 % Sodium Chloride Flush 3 Ml Syringe) 3 ml IVFLUSH QSHIFT [facility] Home Medications Medication Instructions Recorded Confirmed Last Taken Type cyanocobalamin (vitamin B-12) 1 tab PO DAILY 06/21/20 09/24/21 09/22/21 History 1,000 mcg tablet (Vitamin B-12) nitroglycerin 0.4 mg sublingual 1 tab SUBLINGUAL NEEDED PRN 06/21/20 09/24/21 09/22/21 History tablet umeclidinium 62.5 mcg-vilanterol 1 inh INHALATION DAILY 06/21/20 09/24/21 09/22/21 History 25 mcg/actuation powdr for inhalation (Anoro Ellipta) fluticasone propionate 110 2 inh INHALATION BID 09/28/20 09/24/21 09/22/21 History mcg/actuation HFA aerosol inhaler artifi.tears(hypromellose)(PF) 0.3 1 drp OPHTHALMIC (EYE) BID PRN 03/04/21 09/24/21 09/22/21 History % eye drops gabapentin 400 mg capsule 1 cap PO TID 03/04/21 09/24/21 09/22/21 History levothyroxine 75 mcg tablet 1 tab PO DAILY 03/04/21 09/24/21 Unknown History losartan 50 mg tablet 1 tab PO DAILY 03/04/21 09/24/21 09/22/21 History tizanidine 4 mg tablet 1 tab PO BEDTIME 03/04/21 09/24/21 09/22/21 History triamcinolone acetonide 0.5 % 1 appl TOPICAL BID 03/04/21 09/24/21 09/22/21 History topical cream acetaminophen 500 mg tablet 500 mg PO TID PRN 05/14/21 09/24/21 09/22/21 History atorvastatin 80 mg tablet 80 mg PO BEDTIME 06/04/21 09/24/21 09/22/21 History lidocaine 4 % topical patch 1 patch TOPICAL DAILY PRN 09/24/21 09/24/21 Unknown History omeprazole 20 mg capsule,delayed 1 cap PO DAILY 09/24/21 09/24/21 09/22/21 History release Physical Exam Vital Signs: Vital Signs: Last Vital Signs Temp 98.3 F 09/24/21 06:56 Pulse 86 09/24/21 06:56 Resp 12 09/24/21 06:56 BP 116/57 L 09/24/21 06:56 Pulse Ox 98 09/24/21 06:56 BMI result Body Mass Index 20.3 EXAM: GENERAL: The patient is thin, dysarthric VITAL SIGNS:see workflow HEENT: Nonicteric sclerae, PERRLA, EOMI. Oropharynx clear. Moist mucous membranes. Conjunctivae appear well perfused. No thyroid mass. CHEST: Chest wall is nontender. HEART: Regular rate and rhythm without murmurs. LUNGS: Clear to auscultation bilaterally. ABDOMEN: Soft, positive bowel sounds, nontender, no organomegaly.no flank tenderness SKIN: No rash, no excessive bruising, petechiae, or purpura. NEUROLOGIC: normal muscle power in limbs, and normal tone, dysarthric Psych--nml affect Results Labs CBC & Chem 7: 09/24/21 06:34 09/24/21 06:34 Labs: Short CBC 09/23/21 09/24/21 Range/Units 19:36 06:34 WBC 10.8 7.7 (4.8-10.8) X10*3/uL Hgb 5.8 L* 7.6 L D (14.0-18.0) g/dl Hct 17.9 L* 23.6 L D (42.0-52.0) % Plt Count 409 H 351 (160-400) X10*3/uL BMP 09/23/21 09/24/21 19:36 06:34 Sodium 140 140 Potassium 3.8 4.1 Chloride 107 107 Carbon Dioxide 26 27 BUN 17 H 13 Creatinine 1.17 0.76 Calcium 9.0 8.6 Liver Function 09/23/21 Range/Units 19:36 Total Bilirubin 0.2 (0.0-1.0) mg/dL AST 16 D (5-37) U/L ALT 8 (0-40) U/L Alkaline Phosphatase 69 (39-117) U/L Albumin 3.3 L (3.5-5.0) g/dL Imaging Chest x-ray: Attestation: I personally reviewed and interpreted this imaging study as follows: My impression: mid left lung zone nodule, no obvious infiltrate or effusions Assessment and Plan (1) COVID-19: Status: Acute (2) Severe anemia: Status: Acute 1/ Melena in setting of epistaxis, may not be an upper GI bleed, in any case from prior EGD I have performed on him he has a very difficult airway and an EGD whilst he is COVID pos would be better delayed for 1-2 weeks. ddx: esophagitis, gastritis, PUD PLAN: 1/ high dose pantoprazole 40 mg BID, can add sucralfate, IV iron if iron indices are low 2/ If ridge from GI standpoint then o/p EGD otherwise if worsens then in patient 3/ If has recurrent epistaxis may need reassessment of nasopharynx, 4/ o/p follow up for lung lesion Procedures Date of Service Date of Service: 09/24/21
--- NOTE | 2021-09-24 08:40 | P.EN_ITS ---
Event Note Date of Service: 09/24/21 Event Note: I personally saw patient and examined him. He is admitted this [facility] with GIB, acute blood loss anemia, he's hemodynamically stable, s/p transfusion. Hold further transfusion. GI will see and may need endoscopy. Continue IV PPI.. O/w A/P per H and P from this morning.
[2021-09-24] MEDS: 0.9 % Sodium Chloride Flush 3 ML SYRINGE IVFLUSH ×2 (08:44→16:13)
--- NOTE | 2021-09-24 09:22 | PC.NURSE ---
pt's daughter [place]il[place] [facility] [phone][place] and was updated on pt status, pt is aware. pt to be transfered to room 462
--- NOTE | 2021-09-24 10:50 | PC.NURSE ---
rn to rn report given to carmel, pt aware of plan of care.
[2021-09-24] MEDS: traMADoL HCL 50 MG TABLET PO (12:32)
[2021-09-24] MEDS: Gabapentin 400 MG CAPSULE PO ×2 (16:13→20:16)
[2021-09-24] MEDS: Loratadine 10 MG TABLET 5 MG PO (20:16)
[2021-09-24] MEDS: TiZANidine HCL 4 MG TABLET PO (20:16)
[2021-09-24] MEDS: Fluticasone Propionate Nasal 16 GM SPRAY 1 SPRAY NOSTRIL-B (22:15)
[2021-09-24] MEDS: Fluticasone Propionate 100 MCG BLST.W.DEV 2 PUFF INHALE (22:16)
[2021-09-25] MEDS: Dextrose 5 % and 0.45 % NaCl 1,000 ML 50 ML IVCONT (00:35)
[2021-09-25] MEDS: 0.9 % Sodium Chloride Flush 3 ML SYRINGE IVFLUSH ×2 (00:36→09:55)
--- NOTE | 2021-09-25 03:04 | PC.NURSE ---
13 beats of vtach while urinating in the urinal in the bed. Pt denied any chest pain,no dizziness, no sob. Dr Otilia Oreilly was notified, pt encouraged to increase po fluids
[2021-09-25 03:16] VITALS: BP 129/58; PULSE 59; RESP 18; TEMP 36.7; O2SAT 98
[2021-09-25] MEDS: Pantoprazole Sodium 40 MG/10 ML VIAL IVPUSH (06:08)
[2021-09-25] MEDS: traMADoL HCL 50 MG TABLET PO (06:12)
[2021-09-25] MEDS: Fluticasone Propionate 100 MCG BLST.W.DEV 2 PUFF INHALE (07:47)
[2021-09-25 07:48] VITALS: PULSE 87; RESP 18; O2SAT 100
[2021-09-25 07:58] VITALS: BP 151/78; PULSE 83
[2021-09-25 07:59] VITALS: BP 129/61; BP 137/79; PULSE 84; PULSE 91
[2021-09-25 08:00] VITALS: BP 154/78; PULSE 83; RESP 16; TEMP 36.6; O2SAT 100
[2021-09-25] MEDS: Cyanocobalamin (Vitamin B-12) 1,000 MCG TABLET 1000 MCG PO (09:42)
[2021-09-25] MEDS: Levothyroxine Sodium 75 MCG TABLET PO (09:42)
[2021-09-25] MEDS: Loratadine 10 MG TABLET 5 MG PO (09:42)
[2021-09-25] MEDS: Gabapentin 400 MG CAPSULE PO (09:42)
[2021-09-25] MEDS: Fluticasone Propionate Nasal 16 GM SPRAY 1 SPRAY NOSTRIL-B (09:50)
[2021-09-25 10:06] LABS: Mean Corpuscular Hemoglobin 29.9 pg (27.0-33.0); Mean Corpuscular Volume 93.3 fL (80.0-98.0); Mean Platelet Volume 9.6 fL (9.4-12.4); Platelet Count 367 X10*3/uL (160-400); Red Blood Count 2.68 X10*6/uL (4.60-5.80); Red Cell Distribution Width 16.6 % (11.0-16.0); White Blood Count 4.7 X10*3/uL (4.8-10.8)
[2021-09-25 11:25] VITALS: BP 155/78; PULSE 82; RESP 16; TEMP 36.5; O2SAT 98
--- NOTE | 2021-09-25 11:27 | P.DS_ITS ---
DS: Providers Provider Date of Service: 09/25/21 Date of admission: 09/24/21 00:32 Primary care physician: Unknown Physician Consults: 09/24/21 00:37 Consult to Gastroenterology Routine Consulting Provider: Billy Burt Reason for consultation: GI bleed DS: Diagnosis Discharge Diagnosis (1) COVID-19: Status: Acute (2) Severe anemia: Status: Acute DS: Summary Hospital Course Hospital Course: Chief Complaint: Generalized weakness 70-year-old male with a past medical history of hypertension, hyperlipidemia, COPD, history of throat cancer status post chemotherapy/radiotherapy; history of? aortic aneurysm, anemia, thyroid disease, history of GI bleed status post EGD, presented to the hospital today with a chief complaint of generalized weakness/lightheadedness/dizziness.? Patient reports that over the past few days he has been having intermittent episodes of black stools.? Past couple days he has been having shortness of breath which has been worsening, associated dyspnea on exertion, chest heaviness.? Also reports episodes of epistaxis.? Denies any numbness tingling or focal weakness.? Denies any fever chills cough.? Denies any falls or trauma.? Patient currently denies currently using any sbyz-abm-todfegh pain medications like naproxen. Review of all other systems is negative except mentioned above ER course: Per ER team patient on presentation noted to be pale, hemoglobin noted to be 5.8-ordered 2 units of PRBC.? On rectal exam noted to have black stool and guaiac positive.? Blood pressure stable.? Admitted to the hospital for further management Hospital course: He presented with generalized weakness and found to be signficantly anemica with hemoglobin of 5.8 M black tarry stool on exam. He was transfused, admitted for further evaluation. He was seen by Dr. Payan who advises outpatient follow-up for possible EGD . Hemoglobin and hematocrit has been fairly stable at this time. No further transfusion indicated at this time to follow-up on outpatient basis. Nutrition advises ensure for moderate protein calory malnutrition. 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 4d Temp 97.7 F 09/25/21 11:25 4d Pulse 82 09/25/21 11:25 Carolina PastranaNew 4d Resp 16 09/25/21 11:25 BP 155/78 H 09/25/21 11:25 Pulse Ox 98 09/25/21 11:25 BMI result Body Mass Index 20.3 Const: Other: General: AO X 3, no acute distress Resp: CTA bilateral CVS: S1,S2,RRR GI: +BS, NT, no distention Skin: No rash Neuro: motor grossly intact Psych: appropriate affect DS: Data Data Completed and Pending Completed studies during hospitalization [Text1]: Procedures Dilation of Esophagus, Via Natural or Artificial Opening Endoscopic (03/04/21) Transfusion of Nonautologous Red Blood Cells into Peripheral Vein, Percutaneous Approach (03/04/21) Labs on day of discharge: Laboratory Results - last 24 hr 09/25/21 09:54 WBC 4.7 L RBC 2.68 L Hgb 8.0 L Hct 25.0 L MCV 93.3 MCH 29.9 MCHC 32.0 RDW 16.6 H Plt Count 367 MPV 9.6 Absolute Nucleated RBC 0.000 Nucleated RBC % (auto) 0.0 Discharge Plan Discharge Anticipated Discharge Date/Time: 09/25/21 11:17 Patient Disposition: Home Health Service Discharge Diagnosis: GI BLEED, ANEMIA Referrals: Physician,Unknown J [Primary Care Provider] - 1 Week Discharge Medications: New Prilosec 10 mg susp,delayed release for recon 20 mg PO BID Qty: 60 RF: 2 Continued tramadol 50 mg tablet 50 mg PO TID PRN (Reason: Pain) Qty: 90 RF: 5 albuterol sulfate 90 mcg/actuation HFA aerosol inhaler 2 puff PO Q4-6H PRN (Reason: for dyspnea) Qty: 8.5 RF: 0 losartan 50 mg tablet 1 tab PO DAILY RF: 0 tizanidine 4 mg tablet 1 tab PO BEDTIME RF: 0 gabapentin 400 mg capsule 1 cap PO TID RF: 0 levothyroxine 75 mcg tablet 1 tab PO DAILY RF: 0 triamcinolone acetonide 0.5 % Cream 1 appl TOPICAL BID RF: 0 artifi.tears(hypromellose)(PF) 0.3 % Drops 1 drp OPHTHALMIC (EYE) BID PRN (Reason: Dry Eyes) RF: 0 cyanocobalamin (vitamin B-12) [Vitamin B-12] 1,000 mcg tablet 1 tab PO DAILY RF: 0 nitroglycerin 0.4 mg tablet, sublingual 1 tab sublingual NEEDED PRN (Reason: Chest Pain) RF: 0 Anoro Ellipta 62.5-25 mcg/actuation Blister With Device 1 inh INHALATION DAILY RF: 0 atorvastatin 80 mg tablet 80 mg PO BEDTIME RF: 0 lidocaine 4 % Adhesive Patch,Medicated 1 patch TOPICAL DAILY PRN (Reason: Pain) RF: 0 omeprazole 20 mg capsule,delayed release(DR/EC) 1 cap PO DAILY RF: 0 acetaminophen 500 mg tablet 500 mg PO TID PRN (Reason: headache) RF: 0 loratadine [Children's Claritin] 5 mg/5 mL solution 5 mg PO BID Qty: 120 RF: 1 guaifenesin 100 mg/5 mL liquid 200 mg PO Q4H PRN (Reason: cough) Qty: 1500 RF: 0 fluticasone propionate 50 mcg/actuation spray,suspension 1 spray intranasal BID Qty: 16 RF: 0 sodium chloride [Bourbon Nasal] 0.65 % aerosol,spray 1 spray intranasal BID PRN (Reason: dry nasal passages) Qty: 60 RF: 0 fluticasone propionate 110 mcg/actuation HFA aerosol inhaler 2 inh inhalation BID RF: 0 Discharge Orders: Discharge Order (Routine); Ordered 09/25/21 Ordered By: Luis keyur Diet: advance to usual diet Activity on Discharge: As tolerated Stand Alone Forms: Patient Portal Discharge page Care Plan Goals: Prevent rehospitalization Health Concerns: GI bleeding, Malnutrition, throat cancer, covid Plan of Treatment: Follow CDC isolation guideline Follow with Dr. Payan Assessment: As above
--- NOTE | 2021-09-25 11:36 | MHC.CM.PN ---
spoke with pts [facility] who will transport p[t home pt lives with his and son dgter will trnasp[ort home
== END 2021-09-25 13:59 | disposition home health service (06) | DRG 377 ==
LOC: HO.ED 19:17 → HO.EDOVER 09-24 00:40 → HO.IMC 09-24 08:03
PROVIDERS: Admitting Provider Hospitalist; Emergency Provider Internal Medicine; PCP Internal Medicine; Visit Provider Internal Medicine
DX: K92.2 Gastrointestinal hemorrhage, unspecified (principal); U07.1 COVID-19; E44.0 Moderate protein-calorie malnutrition; D62 Acute posthemorrhagic anemia; Z85.818 Personal history of malignant neoplasm of other sites of lip, oral cavity, and pharynx; Z92.3 Personal history of irradiation; Z68.20 Body mass index [BMI] 20.0-20.9, adult; Z87.891 Personal history of nicotine dependence; Z88.0 Allergy status to penicillin; Z88.5 Allergy status to narcotic agent; Z79.51 Long term (current) use of inhaled steroids; Z79.890 Hormone replacement therapy; Z79.899 Other long term (current) drug therapy
CPT/HCPCS: 36415; 71045; 80048; 80053; 82272; 84484; 85025; 85027; 85610; 86850; 86900; 86901; 86923; 87635; 92610; 93005; 94640; 99285; P9016

== ENCOUNTER 2021-09-30 12:06 | Outpatient (REF) | payer MEDICARE, SELFPAY ==
[2021-09-30 12:53] LABS: Binax Internal Control QC Valid; Binax Now Covid-19 Ag Negative (Negative)
== END 2021-09-30 12:07 | disposition home or self-care (01) ==
LOC: HO.LAB 12:06
PROVIDERS: Visit Provider Internal Medicine
DX: Z20.822 Contact with and (suspected) exposure to COVID-19 (principal)
CPT/HCPCS: C9803

== ENCOUNTER 2021-09-30 15:19 | Outpatient (REF) | payer MEDICARE, SELFPAY ==
[2021-09-30 15:37] LABS: MANUAL DIFF FLAG NO
[2021-09-30 16:08] LABS: Basophils Percent Auto 0.8 % (0-2); Eosinophils Absolute Auto 0.1 X10*3/uL (0.0-0.4); Eosinophils Percent Auto 2.9 % (0-4); Imm Gran Abs Auto 0.02 X10*3/uL (0.00-0.03); Imm Gran Pct Auto 0.5 % (0.0-0.4); Lymphocytes Absolute Auto 0.6 X10*3/uL (1.2-4.9); Lymphocytes Percent Auto 16.4 % (20-40); Mean Corpuscular HGB Conc 31.3 g/dl (31.0-36.0); Mean Corpuscular Hemoglobin 30.2 pg (27.0-33.0); Mean Corpuscular Volume 96.7 fL (80.0-98.0); Mean Platelet Volume 10.2 fL (9.4-12.4); Monocytes Absolute Auto 0.7 X10*3/uL (0.1-1.2); Monocytes Percent Auto 19.1 % (2-11); Neutrophils Absolute Auto 2.3 x10*3/uL (2.0-8.3); Neutrophils Percent Auto 60.3 % (45-73); Platelet Count 352 X10*3/uL (160-400); Red Blood Count 2.15 X10*6/uL (4.60-5.80); Red Cell Distribution Width 16.5 % (11.0-16.0); White Blood Count 3.8 X10*3/uL (4.8-10.8)
[2021-09-30 16:17] LABS: Hematocrit 20.8 % (42.0-52.0); Hemoglobin 6.5 g/dl (14.0-18.0)
[2021-09-30 16:22] LABS: Alanine Aminotransferase 23 U/L (0-40); Albumin Level 3.6 g/dL (3.5-5.0); Alkaline Phosphatase 68 U/L (39-117); Anion Gap 12 (12-20); Aspartate Amino Transferase 30 U/L (5-37); Bilirubin Total 0.2 mg/dL (0.0-1.0); Blood Urea Nitrogen 21 mg/dL (9-16); Calcium 9.1 mg/dL (8.4-10.2); Carbon Dioxide 28 mmol/L (22-29); Chloride 105 mmol/L (96-108); Estimated Glomerular Filt Rate 57; Glucose Random 110 mg/dL (60-115); Potassium 4.4 mmol/L (3.3-5.1); Sodium 141 mmol/L (135-145); Total Protein 6.9 g/dL (6.5-8.0)
== END 2021-09-30 15:20 | disposition home or self-care (01) ==
LOC: HO.LAB 15:19
PROVIDERS: PCP Internal Medicine; Visit Provider Internal Medicine
DX: D50.8 Other iron deficiency anemias (principal); I95.89 Other hypotension; R42 Dizziness and giddiness
CPT/HCPCS: 36415; 80053; 85025

== ENCOUNTER 2021-09-30 17:15 | Emergency (ER) | payer MEDICARE, SELFPAY ==
[2021-09-30] VITALS (7 sets, daily range): BP systolic 98–152; BP diastolic 57–85; PULSE 85–104; RESP 12–18; TEMP 36.6–37.2; O2SAT 98–99; BMI 22.9
--- NOTE | 2021-09-30 17:53 | ECG_ITS ---
Test Reason : LOW BP Blood Pressure : / mmHG Vent. Rate : 084 BPM Atrial Rate : 084 BPM P-R Int : 144 ms QRS Dur : 076 ms QT Int : 384 ms P-R-T Axes : 065 008 064 degrees QTc Int : 453 ms Normal sinus rhythm Normal ECG When compared with ECG of 23-SEP-2021 19:17, No significant change was found Referred By: Venus Fowler Electronically Signed By:VANDA MALIK MD
--- NOTE | 2021-09-30 17:55 | ED_ITS ---
HPI - Recheck/Abnormal Lab/Rx General Chief Complaint: Recheck/Abnormal Lab/Rx Stated Complaint: abnormal labs (low hemoglobin) Time Seen by Provider: 09/30/21 17:51 Source: patient and old records reviewed Mode of arrival: EMS Limitations: no limitations History of Present Illness HPI narrative: 70 yo male COVID + hx of HTN, HLD, COPD, throat cancer s/p chemo/radiation - hx of serial esophageal dilations in the past, hx of aortic aneurysm, anemia, thyroid disease just DC on 09/25 s/p 2 units of PRBCs transfusion for melena noted to have melena and also transient epistaxis DC home stable with H/H of 8/25 (from 5.8/17.9) PCP sent back to ED found to have lower BPs and H/H 6.5/20.8 patient feeling weak and lightheaded. stated at home BP was 60s MD complaint: abnormal lab Initial visit (ago): hour(s) Initial visit for: other (follow up hospital visit) Returns today for: called because of abnormal lab/test Description of abnormal result: hemoglobin 6.5 Symptoms since prior visit: no new symptoms (denies GIB symptoms but notes still dizzy and lightheaded when standing) Context: called for abnormal lab result Associated symptoms: malaise Related Data Home Medications Medication Instructions Recorded Confirmed cyanocobalamin (vitamin B-12) 1 tab PO DAILY 06/21/20 09/30/21 1,000 mcg tablet (Vitamin B-12) nitroglycerin 0.4 mg sublingual 1 tab SUBLINGUAL NEEDED PRN 06/21/20 09/30/21 tablet umeclidinium 62.5 mcg-vilanterol 1 inh INHALATION DAILY 06/21/20 09/30/21 25 mcg/actuation powdr for inhalation (Anoro Ellipta) fluticasone propionate 110 2 inh INHALATION BID 09/28/20 09/30/21 mcg/actuation HFA aerosol inhaler artifi.tears(hypromellose)(PF) 0.3 1 drp OPHTHALMIC (EYE) BID PRN 03/04/21 09/30/21 % eye drops gabapentin 400 mg capsule 1 cap PO TID 03/04/21 09/30/21 levothyroxine 75 mcg tablet 1 tab PO DAILY 03/04/21 09/30/21 losartan 50 mg tablet 1 tab PO DAILY 03/04/21 09/30/21 tizanidine 4 mg tablet 1 tab PO BEDTIME 03/04/21 09/30/21 acetaminophen 500 mg tablet 500 mg PO TID PRN 05/14/21 09/30/21 atorvastatin 80 mg tablet 80 mg PO BEDTIME 06/04/21 09/30/21 omeprazole 20 mg capsule,delayed 1 cap PO DAILY 09/24/21 09/30/21 release ferrous sulfate 325 mg (65 mg 1 tab PO DAILY 09/30/21 09/30/21 iron) tablet (FeroSul) Previous Rx's Medication Instructions Recorded fluticasone propionate 50 1 spray INTRANASAL BID #16 g 05/14/21 mcg/actuation nasal spray,suspension sodium chloride 0.65 % nasal spray 1 spray INTRANASAL BID PRN #60 ml 05/14/21 aerosol (Cassia Nasal) albuterol sulfate 90 mcg/actuation 2 puff PO Q4-6H PRN #8.5 g 08/22/21 aerosol inhaler tramadol 50 mg tablet 50 mg PO TID PRN #42 tab 09/25/21 Allergies Allergy/AdvReac Type Severity Reaction Status Date / Time Penicillins Allergy Rash Verified 06/04/21 13:30 aspirin [ASA] AdvReac Intermediate GI BLEED, Verified 06/04/21 13:30 Headaches Review of Systems Review of Systems: Constitutional : No Weight loss, No Fever, No Chills, pos Fatigue, pos Malaise ENT/Mouth : No sore throat, No Rhinorrhea Eyes: No Eye Pain, No Swelling, No Redness Cardiovascular : No Chest Pain, No SOB, No Dyspnea on Exertion, No Orthopnea, No Edema, No Palpitations Respiratory : No Cough, No Sputum, No Wheezing Gastrointestinal : No Nausea, No Vomiting, No Diarrhea, No Constipation, No abdominal Pain, No Hematochezia, No Melena Genitourinary : No Dysuria, No Urinary Frequency, No Hematuria, Musculoskeletal : No joint pain, No Myalgias, No Joint Swelling Skin : No Skin Lesions, No rash Neuro : pos Weakness, No Numbness, pos Dizziness, No Headache Psych : No Anxiety/Panic, No Depression Heme/Lymph: No Bruising, No Bleeding,No Lymphadenopathy Endocrine : No Polyuria, No Polydipsia All other systems reviewed and are negative [facility] Past Medical History Attestation statement: The following information was validated with the patient. Medical History Anemia Aortic aneurysm Arthritis Back pain Cancer COPD (chronic obstructive pulmonary disease) Depression Difficulty swallowing Elevated cholesterol GERD (gastroesophageal reflux disease) History of chemotherapy HTN (hypertension) Hx of radiation therapy Osteoarthritis of left shoulder Pulmonary nodule Thyroid disease Surgical History H/O colonoscopy History of back surgery History of esophagogastroduodenoscopy (EGD) Family History Family History Father Brain cancer Mother CVD (cardiovascular disease) Maternal Aunt Diabetes Social History Social History Household Members: Spouse Household Members Other:: 3 Housing: Apartment Do you presently have visiting nurse or other home services: No Alcohol intake: never Patient Tobacco Use Status: Former Tobacco user Quit Date: 30 yrs ago Tobacco use type: Cigarette Cigarette Packs Per Day: 3 Cigarettes Per Day: 60.0 Years Smoked: 25 Smoked in Last 30 Days: No e-Cigarette/Vaping Use: Never Used Second Hand Smoke Exposure: No Use of substances other than those prescribed or required for medical reasons: No Advance Directives: Yes Advance Directives on File: Yes Advance Directives Date on File: 03/04/21 service: No Current occupational status: disabled Physical Exam Vital Signs: Vital Signs: Last Vital Signs Temp 98.6 F 09/30/21 22:32 Pulse 87 09/30/21 22:32 Resp 14 09/30/21 22:32 BP 152/85 H 09/30/21 22:32 Pulse Ox 99 09/30/21 19:36 BMI result Body Mass Index 22.9 Appearance: Alert. Oriented X3. No acute distress. Eyes: Pupils equal, round and reactive to light. ENT: Pharynx normal. Neck: Normal inspection. Neck supple. CVS: Normal heart rate and rhythm. Pulses normal. Respiratory: No respiratory distress. Breath sounds normal. Abdomen: Soft and nontender. Rectal: mucousy brown stool Skin: Skin warm and dry. Normal skin color. Normal skin turgor. Extremities: No lower extremity edema. No calf ttp Neuro: Oriented X 3. No motor deficit. No sensory deficit. Course Course Course Narrative: low blood pressure due to anemia and not infection or severe sepsis Dr. Payan does not want to scope at this time, wants to wait til next week gi sb this and the fact that he is guiac negative without active GIB symptoms hospitalist declines admission and recommends transfusion while in ED then DC home. 2 units of blood ordered, BP stable, no active GIB at this time. tolerated well - stable for DC MDM - Recheck/Abnormal Lab/Rx MDM Narrative Medical decision making narrative: 70 yo male COVID + hx of HTN, HLD, COPD, throat cancer s/p chemo/radiation - hx of serial esophageal dilations in the past, hx of aortic aneurysm, anemia, thyroid disease just DC on 09/25 s/p 2 units of PRBCs transfusion for melena comes back today due to low H/H he denies GIB symptoms states he is feeling okay other than some dizziness and lightheaded when he stands - at this time will need labs, 2 UPRBCs, IV protonix, plan to re-admit patient likely will need repeat EGD per Dr. Payan's note from 09/24. Lab Data Result diagrams: 09/30/21 18:26 09/30/21 18:26 Labs: Lab Results 09/30/21 09/30/21 09/30/21 Range/Units 18:16 18:16 18:26 WBC 3.7 L (4.8-10.8) X10*3/uL RBC 2.09 L (4.60-5.80) X10*6/uL Hgb 6.3 L* (14.0-18.0) g/dl Hct 19.8 L* (42.0-52.0) % MCV 94.7 (80.0-98.0) fL MCH 30.1 (27.0-33.0) pg MCHC 31.8 (31.0-36.0) g/dl RDW 16.6 H (11.0-16.0) % Plt Count 288 (160-400) X10*3/uL MPV 9.4 (9.4-12.4) fL Immature Gran % (Auto) 0.5 H (0.0-0.4) % Neut % (Auto) 56.5 (45-73) % Lymph % (Auto) 17.8 L (20-40) % [place] % (Auto) 22.2 H (2-11) % Eos % (Auto) 2.5 (0-4) % Baso % (Auto) 0.5 (0-2) % Lymph # (Auto) 0.7 L (1.2-4.9) X10*3/uL [place] # (Auto) 0.8 (0.1-1.2) X10*3/uL Eos # (Auto) 0.1 (0.0-0.4) X10*3/uL Baso # (Auto) 0.0 (0.0-0.2) X10*3/uL Abs Immat Gran (auto) 0.02 (0.00-0.03) X10*3/uL Absolute Neuts (auto) 2.1 (2.0-8.3) x10*3/uL Absolute Nucleated RBC 0.000 (0.0-0.012) X10*3/uL Nucleated RBC % (auto) 0.0 (0.0-0.2) /100WBC Smear Tech's Comments VERIFIED PT (9.9-13.0) SEC INR (0.9-1.1) APTT (24.1-38.0) SEC Sodium (135-145) mmol/L Potassium (3.3-5.1) mmol/L Chloride (96-108) mmol/L Carbon Dioxide (22-29) mmol/L Anion Gap (12-20) BUN (9-16) mg/dL Creatinine (0.5-1.4) mg/dL Estim Creat Clear Calc Estimated GFR Random Glucose (60-115) mg/dL Lactic Acid (0.5-2.0) mmol/L Calcium (8.4-10.2) mg/dL Magnesium (1.6-2.6) mg/dL Iron (45-160) mcg/dL TIBC (228-428) mcg/dL % Saturation (15-50) % Unsat Iron Binding ug/dL Ferritin (20-250) ng/mL Total Bilirubin (0.0-1.0) mg/dL Direct Bilirubin (0.0-0.5) mg/dL AST (5-37) U/L ALT (0-40) U/L Alkaline Phosphatase (39-117) U/L Lactate Dehydrogenase (118-273) U/L Troponin I High Sens (<3.5-35.0) ng/L Total Protein (6.5-8.0) g/dL Albumin (3.5-5.0) g/dL Lipase (8-78) U/L Procalcitonin ng/mL Stool Occult Blood NEGATIVE (NEGATIVE) COVID-19 (VIC) Positive A (Negative) COVID-19 Clin Com See Note Blood Type Antibody Screen Crossmatch 09/30/21 09/30/21 09/30/21 Range/Units 18:26 18:26 18:26 WBC (4.8-10.8) X10*3/uL RBC (4.60-5.80) X10*6/uL Hgb (14.0-18.0) g/dl Hct (42.0-52.0) % MCV (80.0-98.0) fL MCH (27.0-33.0) pg MCHC (31.0-36.0) g/dl RDW (11.0-16.0) % Plt Count (160-400) X10*3/uL MPV (9.4-12.4) fL Immature Gran % (Auto) (0.0-0.4) % Neut % (Auto) (45-73) % Lymph % (Auto) (20-40) % [place] % (Auto) (2-11) % Eos % (Auto) (0-4) % Baso % (Auto) (0-2) % Lymph # (Auto) (1.2-4.9) X10*3/uL [place] # (Auto) (0.1-1.2) X10*3/uL Eos # (Auto) (0.0-0.4) X10*3/uL Baso # (Auto) (0.0-0.2) X10*3/uL Abs Immat Gran (auto) (0.00-0.03) X10*3/uL Absolute Neuts (auto) (2.0-8.3) x10*3/uL Absolute Nucleated RBC (0.0-0.012) X10*3/uL Nucleated RBC % (auto) (0.0-0.2) /100WBC Smear Tech's Comments PT (9.9-13.0) SEC INR (0.9-1.1) APTT (24.1-38.0) SEC Sodium 139 (135-145) mmol/L Potassium 4.1 (3.3-5.1) mmol/L Chloride 103 (96-108) mmol/L Carbon Dioxide 30 H (22-29) mmol/L Anion Gap 10 L (12-20) BUN 21 H (9-16) mg/dL Creatinine 1.08 (0.5-1.4) mg/dL Estim Creat Clear Calc 59.5 Estimated GFR > 60 Random Glucose 90 (60-115) mg/dL Lactic Acid 0.6 (0.5-2.0) mmol/L Calcium 8.8 (8.4-10.2) mg/dL Magnesium 2.2 (1.6-2.6) mg/dL Iron 21 L (45-160) mcg/dL TIBC 328 (228-428) mcg/dL % Saturation 6 L (15-50) % Unsat Iron Binding 307 ug/dL Ferritin 43 (20-250) ng/mL Total Bilirubin < 0.2 (0.0-1.0) mg/dL Direct Bilirubin < 0.2 (0.0-0.5) mg/dL AST 27 (5-37) U/L ALT 22 (0-40) U/L Alkaline Phosphatase 66 (39-117) U/L Lactate Dehydrogenase 136 (118-273) U/L Troponin I High Sens (<3.5-35.0) ng/L Total Protein 6.5 (6.5-8.0) g/dL Albumin 3.4 L (3.5-5.0) g/dL Lipase 24 (8-78) U/L Procalcitonin ng/mL Stool Occult Blood (NEGATIVE) COVID-19 (VIC) (Negative) COVID-19 Clin Com Blood Type O Positive Antibody Screen NEGATIVE Crossmatch See Detail 09/30/21 09/30/21 09/30/21 Range/Units 18:26 18:26 18:26 WBC (4.8-10.8) X10*3/uL RBC (4.60-5.80) X10*6/uL Hgb (14.0-18.0) g/dl Hct (42.0-52.0) % MCV (80.0-98.0) fL MCH (27.0-33.0) pg MCHC (31.0-36.0) g/dl RDW (11.0-16.0) % Plt Count (160-400) X10*3/uL MPV (9.4-12.4) fL Immature Gran % (Auto) (0.0-0.4) % Neut % (Auto) (45-73) % Lymph % (Auto) (20-40) % [place] % (Auto) (2-11) % Eos % (Auto) (0-4) % Baso % (Auto) (0-2) % Lymph # (Auto) (1.2-4.9) X10*3/uL [place] # (Auto) (0.1-1.2) X10*3/uL Eos # (Auto) (0.0-0.4) X10*3/uL Baso # (Auto) (0.0-0.2) X10*3/uL Abs Immat Gran (auto) (0.00-0.03) X10*3/uL Absolute Neuts (auto) (2.0-8.3) x10*3/uL Absolute Nucleated RBC (0.0-0.012) X10*3/uL Nucleated RBC % (auto) (0.0-0.2) /100WBC Smear Tech's Comments PT 12.2 (9.9-13.0) SEC INR 1.1 (0.9-1.1) APTT 33.9 (24.1-38.0) SEC Sodium (135-145) mmol/L Potassium (3.3-5.1) mmol/L Chloride (96-108) mmol/L Carbon Dioxide (22-29) mmol/L Anion Gap (12-20) BUN (9-16) mg/dL Creatinine (0.5-1.4) mg/dL Estim Creat Clear Calc Estimated GFR Random Glucose (60-115) mg/dL Lactic Acid (0.5-2.0) mmol/L Calcium (8.4-10.2) mg/dL Magnesium (1.6-2.6) mg/dL Iron (45-160) mcg/dL TIBC (228-428) mcg/dL % Saturation (15-50) % Unsat Iron Binding ug/dL Ferritin (20-250) ng/mL Total Bilirubin (0.0-1.0) mg/dL Direct Bilirubin (0.0-0.5) mg/dL AST (5-37) U/L ALT (0-40) U/L Alkaline Phosphatase (39-117) U/L Lactate Dehydrogenase (118-273) U/L Troponin I High Sens 3.9 D (<3.5-35.0) ng/L Total Protein (6.5-8.0) g/dL Albumin (3.5-5.0) g/dL Lipase (8-78) U/L Procalcitonin 0.13 ng/mL Stool Occult Blood (NEGATIVE) COVID-19 (VIC) (Negative) COVID-19 Clin Com Blood Type Antibody Screen Crossmatch ECG Data Attestation: I personally reviewed and interpreted this ECG as follows: ECG interpretation date: 09/30/21 ECG interpretation time: 19:48 Interpretation: Rate: 84 Rhythm: NSR [place]: normal Normal P waves. Normal [place]. Normal QRS complex. ST T wave : nonspecific no NDAIA qTC: normal prior studies: no acute ischemia no change from prior The study has been interpreted contemporaneously by me. . Discharge Plan Discharge Clinical Impression: Occult GI bleeding Anemia Qualifiers: Anemia type: unspecified type Qualified Code(s): D64.9 - Anemia, unspecified Patient Disposition: Home, Self-Care Instructions: Gastrointestinal Bleeding (ED), Anemia (ED) Additional Instructions: return to ED for any worsening symptoms or concerns given 2 units of blood in the ED, return for any black stools, continue taking your medications, return for any dizziness or weakness Prescriptions: No Action albuterol sulfate 90 mcg/actuation HFA aerosol inhaler 2 puff PO Q4-6H PRN (Reason: for dyspnea) Qty: 8.5 RF: 0 losartan 50 mg tablet 1 tab PO DAILY RF: 0 tizanidine 4 mg tablet 1 tab PO BEDTIME RF: 0 gabapentin 400 mg capsule 1 cap PO TID RF: 0 levothyroxine 75 mcg tablet 1 tab PO DAILY RF: 0 artifi.tears(hypromellose)(PF) 0.3 % Drops 1 drp OPHTHALMIC (EYE) BID PRN (Reason: Dry Eyes) RF: 0 cyanocobalamin (vitamin B-12) [Vitamin B-12] 1,000 mcg tablet 1 tab PO DAILY RF: 0 nitroglycerin 0.4 mg tablet, sublingual 1 tab sublingual NEEDED PRN (Reason: Chest Pain) RF: 0 Anoro Ellipta 62.5-25 mcg/actuation Blister With Device 1 inh INHALATION DAILY RF: 0 atorvastatin 80 mg tablet 80 mg PO BEDTIME RF: 0 omeprazole 20 mg capsule,delayed release(DR/EC) 1 cap PO DAILY RF: 0 tramadol 50 mg tablet 50 mg PO TID PRN (Reason: Pain) Qty: 42 RF: 5 ferrous sulfate [FeroSul] 325 mg (65 mg iron) tablet 1 tab PO DAILY RF: 0 acetaminophen 500 mg tablet 500 mg PO TID PRN (Reason: headache) RF: 0 fluticasone propionate 50 mcg/actuation spray,suspension 1 spray intranasal BID Qty: 16 RF: 0 sodium chloride [Cassia Nasal] 0.65 % aerosol,spray 1 spray intranasal BID PRN (Reason: dry nasal passages) Qty: 60 RF: 0 fluticasone propionate 110 mcg/actuation HFA aerosol inhaler 2 inh inhalation BID RF: 0 Referrals: Renard Payan MD [Physician] - 3 days
[2021-09-30] MEDS: 0.9 % Sodium Chloride 1,000 ML 999 ML IVCONT (18:33)
[2021-09-30 18:34] LABS: Basophils Percent Auto 0.5 % (0-2); Eosinophils Absolute Auto 0.1 X10*3/uL (0.0-0.4); Eosinophils Percent Auto 2.5 % (0-4); Imm Gran Abs Auto 0.02 X10*3/uL (0.00-0.03); Imm Gran Pct Auto 0.5 % (0.0-0.4); Lymphocytes Absolute Auto 0.7 X10*3/uL (1.2-4.9); Lymphocytes Percent Auto 17.8 % (20-40); MANUAL DIFF FLAG SCAN; Mean Corpuscular HGB Conc 31.8 g/dl (31.0-36.0); Mean Corpuscular Hemoglobin 30.1 pg (27.0-33.0); Mean Corpuscular Volume 94.7 fL (80.0-98.0); Mean Platelet Volume 9.4 fL (9.4-12.4); Monocytes Absolute Auto 0.8 X10*3/uL (0.1-1.2); Monocytes Percent Auto 22.2 % (2-11); Neutrophils Absolute Auto 2.1 x10*3/uL (2.0-8.3); Neutrophils Percent Auto 56.5 % (45-73); Platelet Count 288 X10*3/uL (160-400); Red Blood Count 2.09 X10*6/uL (4.60-5.80); Red Cell Distribution Width 16.6 % (11.0-16.0); SCAN SMEAR FLAG 1; White Blood Count 3.7 X10*3/uL (4.8-10.8)
[2021-09-30 18:35] LABS: OBS Int Ctl Valid YES; OBS1 NEGATIVE (NEGATIVE)
[2021-09-30 18:38] LABS: Hematocrit 19.8 % (42.0-52.0); Hemoglobin 6.3 g/dl (14.0-18.0)
[2021-09-30 18:40] LABS: INTERNATIONAL NORM RATIO 1.1 (0.9-1.1); Prothrombin Time 12.2 SEC (9.9-13.0)
[2021-09-30 18:41] LABS: COVID-19 Test Positive (Negative)
[2021-09-30 18:43] LABS: Partial Thromboplastin Time 33.9 SEC (24.1-38.0)
[2021-09-30] MEDS: Pantoprazole Sodium 40 MG/10 ML VIAL IVPUSH (18:46)
[2021-09-30 18:52] LABS: Lactate Dehydrogenase 136 U/L (118-273)
[2021-09-30 18:53] LABS: Troponin-I High Sensitivity 3.9 ng/L (<3.5-35.0)
--- NOTE | 2021-09-30 18:54 | PHA.MEDREC ---
Pharmacy Consult ? Medication Reconciliation Pharmacy has completed the medication reconciliation. Patient was recently admitted here. He endorses that his medication list has not changed except with the addition of a pain pill. He does confirm that he takes medications that he SHOULD be out of based on refill history, including inhalers and prn nose sprays, artificial tears etc. Thanks Grady Moreland
[2021-09-30 18:55] LABS: Alanine Aminotransferase 22 U/L (0-40); Albumin Level 3.4 g/dL (3.5-5.0); Alkaline Phosphatase 66 U/L (39-117); Anion Gap 10 (12-20); Aspartate Amino Transferase 27 U/L (5-37); Bilirubin Direct < 0.2 mg/dL (0.0-0.5); Bilirubin Total < 0.2 mg/dL (0.0-1.0); Blood Urea Nitrogen 21 mg/dL (9-16); Calcium 8.8 mg/dL (8.4-10.2); Carbon Dioxide 30 mmol/L (22-29); Chloride 103 mmol/L (96-108); Creatinine Clr Calc Pharmacy 59.5; Estimated Glomerular Filt Rate > 60; Glucose Random 90 mg/dL (60-115); Lipase 24 U/L (8-78); Magnesium 2.2 mg/dL (1.6-2.6); Potassium 4.1 mmol/L (3.3-5.1); Sodium 139 mmol/L (135-145); Total Protein 6.5 g/dL (6.5-8.0)
[2021-09-30 19:03] LABS: SLIDE REVIEW VERIFIED
[2021-09-30 19:06] LABS: Lactic Acid 0.6 mmol/L (0.5-2.0)
[2021-09-30 19:09] LABS: Ferritin 43 ng/mL (20-250)
[2021-09-30 19:11] LABS: Procalcitonin 0.13 ng/mL
[2021-09-30 21:47] LABS: Iron 21 mcg/dL (45-160); Percent Iron Saturation 6 % (15-50); Total Iron Binding Capacity 328 mcg/dL (228-428); Unsaturated Iron Binding 307 ug/dL
[2021-10-01 01:24] VITALS: BP 144/66; PULSE 70; RESP 16; TEMP 36.8; O2SAT 97
[2021-10-01 02:07] VITALS: BP 158/78; PULSE 91; RESP 16; TEMP 37.1; O2SAT 99
== END 2021-10-01 02:31 | disposition home or self-care (01) ==
PROVIDERS: Emergency Provider Emergency Medicine; PCP Internal Medicine
DX: U07.1 COVID-19 (principal); K92.1 Melena; D64.9 Anemia, unspecified; I95.9 Hypotension, unspecified; R42 Dizziness and giddiness; R53.1 Weakness; I10 Essential (primary) hypertension; E78.5 Hyperlipidemia, unspecified; C14.0 Malignant neoplasm of pharynx, unspecified; Z92.21 Personal history of antineoplastic chemotherapy; Z92.3 Personal history of irradiation; Z79.02 Long term (current) use of antithrombotics/antiplatelets; Z79.899 Other long term (current) drug therapy
CPT/HCPCS: 36415; 36430; 80048; 80076; 82272; 82728; 83540; 83605; 83615; 83690; 83735; 84145; 84484; 85025; 85610; 85730; 86850; 86900; 86901; 86923; 87040; 87635; 93005; 96361; 96374; 99285; 99291; P9016

== ENCOUNTER 2021-10-17 10:54 | Day surgery (SDC) | payer MEDICARE, SELFPAY ==
--- NOTE | 2021-10-16 11:02 | HO.ANESPROP2 ---
Documented by User: Naty Castro NP 10/16/21 11:07 HPI - Anesthesia Eval Consult details Narrative: 71yo M for Upper Endoscopy Multiple previous EGD with dilation (s/p chemo/rad for throat CA). Very small mouth opening. Last EGD 02/2021 with GA-ETT 6, glidescope Critical low H&H 09/30/21. sent to ED by PCP. Rec'd 2 units PRBC PMFSH Active Problems Active Problems: All Active Problems (Updated 10/11/21 @ 09:11 by Ayse Rivas RN) Primary osteoarthritis of left knee (Acute) Dysphagia (Acute) Low back pain (Acute) Pulmonary fibrosis (Acute) Dyspnea (Acute) Pulmonary nodules (Acute) Syncope due to orthostatic hypotension (Acute) Acute hypotension (Acute) Anemia (Acute) Esophageal stricture (Acute) History of external beam radiation therapy (Acute) Precordial chest pain (Acute) Atherosclerotic cardiovascular disease (Acute) Ascending aortic aneurysm (Acute) Osteoarthritis of left shoulder (Acute) Past Medical History Medical History (Updated 10/11/21 @ 09:11 by Ayse Rivas RN) Anemia Aortic aneurysm Arthritis Back pain Cancer COPD (chronic obstructive pulmonary disease) COVID-19 Depression Difficulty swallowing Elevated cholesterol Esophageal stricture GERD (gastroesophageal reflux disease) History of chemotherapy History of epistaxis HTN (hypertension) Hx of radiation therapy Osteoarthritis of left shoulder Pulmonary nodule Thyroid disease Family History Family History Father Brain cancer Mother CVD (cardiovascular disease) Maternal Aunt Diabetes Surgical History Surgical History (Updated 10/11/21 @ 09:11 by Ayse Rivas RN) H/O colonoscopy History of back surgery History of esophagogastroduodenoscopy (EGD) History of nasal surgery History of transurethral resection of prostate History of Problems with Anesthesia: No Social History Social History Household Members: Spouse Household Members Other:: 3 Housing: Apartment Do you presently have visiting nurse or other home services: No Alcohol intake: never Patient Tobacco Use Status: Former Tobacco user Quit Date: 30 yrs ago Tobacco use type: Cigarette Cigarette Packs Per Day: 3 Cigarettes Per Day: 60.0 Years Smoked: 25 e-Cigarette/Vaping Use: Never Used Second Hand Smoke Exposure: No Use of substances other than those prescribed or required for medical reasons: No Advance Directives: Yes Advance Directives on File: Yes Advance Directives Date on File: 03/04/21 Recently lost weight without trying: No service: No Current occupational status: disabled Meds Allergies Allergy/AdvReac Type Severity Reaction Status Date / Time Penicillins Allergy Rash Verified 10/11/21 08:53 aspirin [ASA] AdvReac Intermediate GI BLEED, Verified 10/11/21 08:53 Headaches Home Medications Medication Instructions Recorded Confirmed Last Taken Type cyanocobalamin (vitamin B-12) 1 tab PO DAILY 06/21/20 10/11/21 09/22/21 History 1,000 mcg tablet (Vitamin B-12) nitroglycerin 0.4 mg sublingual 1 tab SUBLINGUAL NEEDED PRN 06/21/20 10/11/21 09/22/21 History tablet umeclidinium 62.5 mcg-vilanterol 1 inh INHALATION DAILY 06/21/20 10/11/21 09/22/21 History 25 mcg/actuation powdr for inhalation (Anoro Ellipta) fluticasone propionate 110 2 inh INHALATION BID 09/28/20 10/11/21 09/22/21 History mcg/actuation HFA aerosol inhaler artifi.tears(hypromellose)(PF) 0.3 1 drp OPHTHALMIC (EYE) BID PRN 03/04/21 10/11/21 09/22/21 History % eye drops gabapentin 400 mg capsule 1 cap PO TID 03/04/21 10/11/21 09/22/21 History levothyroxine 75 mcg tablet 1 tab PO DAILY 03/04/21 10/11/21 Unknown History losartan 50 mg tablet 1 tab PO DAILY 03/04/21 10/11/21 09/22/21 History tizanidine 4 mg tablet 1 tab PO BEDTIME 03/04/21 10/11/21 09/22/21 History acetaminophen 500 mg tablet 500 mg PO TID PRN 05/14/21 10/11/21 09/22/21 History atorvastatin 80 mg tablet 80 mg PO BEDTIME 06/04/21 10/11/21 09/22/21 History omeprazole 20 mg capsule,delayed 1 cap PO DAILY 09/24/21 10/11/21 09/22/21 History release ferrous sulfate 325 mg (65 mg 1 tab PO DAILY 09/30/21 10/11/21 Unknown History iron) tablet (FeroSul) Exam Exam Date and Time: October 16, 2021 1102 Pertinent Lab Results Pertinent Lab Results: Laboratory Tests 09/30/21 09/30/21 18:26 18:26 WBC 3.7 L Hgb 6.3 L* Hct 19.8 L* Plt Count 288 Sodium 139 Potassium 4.1 Chloride 103 Carbon Dioxide 30 H BUN 21 H Creatinine 1.08 Narrative Narrative: EKG 09/2021 Vent. Rate : 084 BPM ? ? Atrial Rate : 084 BPM ?? P-R Int : 144 ms? QRS Dur : 076 ms ? ? QT Int : 384 ms ? ? ? P-R-T Axes : 065 008 064 degrees ?? QTc Int : 453 ms ? Normal sinus rhythm Normal ECG When compared with ECG of 23-SEP-2021 19:17, No significant change was found MIBI: normal perfusion and without any evidence of ischemia or infarction. Normal gated LVEF. ECHO: normal LVEF, 55-60%; mild diastolic dysfunction; [id number] aortic valve regurgitation and mild ascending aortic dilatation. CTA: 50% narrowing focally at the origin of 2nd diagonal branch. There is moderate calcification of the LAD with some scattered mild stenosis. The total calcium score was 528. Ascending aortic size was described as 4.3 x 4.3 cm. PFT 11/2019: No obstructive vent defect. No bronchodilator response. Decreased diffusion capacity suggests emphysema. Assessment and Plan Assessment Anesthesia Assessment: Chart Reviewed Final Anesthetic Review History of Problems with Anesthesia: No Documented by User: Torsten Sims MD 10/17/21 14:44 [facility] Past Medical History Medical History (Updated 10/11/21 @ 09:11 by Ayse Rivas RN) Anemia Aortic aneurysm Arthritis Back pain Cancer COPD (chronic obstructive pulmonary disease) COVID-19 Depression Difficulty swallowing Elevated cholesterol Esophageal stricture GERD (gastroesophageal reflux disease) History of chemotherapy History of epistaxis HTN (hypertension) Hx of radiation therapy Osteoarthritis of left shoulder Pulmonary nodule Thyroid disease Family History Family History Father Brain cancer Mother CVD (cardiovascular disease) Maternal Aunt Diabetes Family history of problems with anesthesia: No Surgical History Surgical History (Updated 10/11/21 @ 09:11 by Ayse Rivas RN) H/O colonoscopy History of back surgery History of esophagogastroduodenoscopy (EGD) History of nasal surgery History of transurethral resection of prostate Social History Social History Household Members: Spouse Household Members Other:: 3 Housing: Apartment Do you presently have visiting nurse or other home services: No Alcohol intake: never Patient Tobacco Use Status: Former Tobacco user Quit Date: 30 yrs ago Tobacco use type: Cigarette Cigarette Packs Per Day: 3 Cigarettes Per Day: 60.0 Years Smoked: 25 e-Cigarette/Vaping Use: Never Used Second Hand Smoke Exposure: No Use of substances other than those prescribed or required for medical reasons: No Advance Directives: Yes Advance Directives on File: Yes Advance Directives Date on File: 03/04/21 Recently lost weight without trying: No service: No Current occupational status: disabled Meds Allergies Allergy/AdvReac Type Severity Reaction Status Date / Time Penicillins Allergy Rash Verified 10/11/21 08:53 aspirin [ASA] AdvReac Intermediate GI BLEED, Verified 10/11/21 08:53 Headaches Home Medications Medication Instructions Recorded Confirmed Last Taken Type cyanocobalamin (vitamin B-12) 1 tab PO DAILY 06/21/20 10/11/21 09/22/21 History 1,000 mcg tablet (Vitamin B-12) nitroglycerin 0.4 mg sublingual 1 tab SUBLINGUAL NEEDED PRN 06/21/20 10/11/21 09/22/21 History tablet umeclidinium 62.5 mcg-vilanterol 1 inh INHALATION DAILY 06/21/20 10/11/21 09/22/21 History 25 mcg/actuation powdr for inhalation (Anoro Ellipta) fluticasone propionate 110 2 inh INHALATION BID 09/28/20 10/11/21 09/22/21 History mcg/actuation HFA aerosol inhaler artifi.tears(hypromellose)(PF) 0.3 1 drp OPHTHALMIC (EYE) BID PRN 03/04/21 10/11/21 09/22/21 History % eye drops gabapentin 400 mg capsule 1 cap PO TID 03/04/21 10/11/21 09/22/21 History levothyroxine 75 mcg tablet 1 tab PO DAILY 03/04/21 10/11/21 Unknown History losartan 50 mg tablet 1 tab PO DAILY 03/04/21 10/11/21 09/22/21 History tizanidine 4 mg tablet 1 tab PO BEDTIME 03/04/21 10/11/21 09/22/21 History acetaminophen 500 mg tablet 500 mg PO TID PRN 05/14/21 10/11/21 09/22/21 History atorvastatin 80 mg tablet 80 mg PO BEDTIME 06/04/21 10/11/21 09/22/21 History omeprazole 20 mg capsule,delayed 1 cap PO DAILY 09/24/21 10/11/21 09/22/21 History release ferrous sulfate 325 mg (65 mg 1 tab PO DAILY 09/30/21 10/11/21 Unknown History iron) tablet (FeroSul) Exam Airway Mallampati Class: IV TM Dist: <=3cm Neck ROM: Limited Loose/Missing/Broken Teeth: Yes Assessment and Plan Assessment Anesthesia Assessment: Anesthesia Plan Discussed Final Anesthetic Review Family History of Problems with Anesthesia: No NPO: Yes ASA Class: III Final Preanesthetic Review: No Changes in Pt Med Stat, Meds/Allgs Chart Reviewed, Consent Obtained/Reviewed and Anes Risks/Benef Reviewed Patient Risk: High Procedure Risk: Low Anesthetic Plan Anesthetic Plan: MAC: Disposition: Standard PACU
[2021-10-17 11:26] VITALS: BP 124/68; PULSE 91; RESP 16; TEMP 36.4; O2SAT 99; BMI 20.3
--- NOTE | 2021-10-17 11:48 | MHC.SHP ---
Pre-Procedural Eval Section A Date of Service: 10/17/21 Section B Chief Complaint: esophageal obstruction Relevant Family History (Specify if Yes): No Relevant Social History: None Present Medications: see Short Stay Collaborative assessment Medical History: Significant History (Anemia Aortic aneurysm Arthritis Back pain Cancer COPD (chronic obstructive pulmonary disease) COVID-19 Depression Difficulty swallowing Elevated cholesterol Esophageal stricture GERD (gastroesophageal reflux disease) History of chemotherapy History of epistaxis HTN (hypertension) Hx of radiation th) History of Previous Operations: Relevant previous surgery/procedure and date(s) (H/O colonoscopy History of back surgery History of esophagogastroduodenoscopy (EGD) History of nasal surgery History of transurethral resection of prostate) Allergies: Allergies Allergy/AdvReac Type Severity Reaction Status Date / Time Penicillins Allergy Rash Verified 10/11/21 08:53 aspirin [ASA] AdvReac Intermediate GI BLEED, Verified 10/11/21 08:53 Headaches Review of Systems Sugical H&P ROS: Negative: Constitution, Cardiovascular, Respiratory, Neurological, Psychiatric, Hem-Onc, Allergic/Immunologic, Gastrointestinal, Genitourinary, Musculoskeletal, Integumentary, Endocrine and Eyes/Ears/Nose/Throat Exam Surgical H&P Exam: Normal: HEENT, Normal: Heart, Normal: Lungs, Normal: Extremities, Normal: Abdomen and Normal: Neurological and Significant Findings: Skin (dysarthric-chronic) Plan Diagnosis/Plan: Unchanged I have reviewed the history and physical and performed a pertinent physical examination on my patient. No changes have occurred unless specified.
[2021-10-17 11:54] LABS: Hematocrit 28.6 % (42.0-52.0); Mean Corpuscular HGB Conc 31.5 g/dl (31.0-36.0); Mean Corpuscular Hemoglobin 28.6 pg (27.0-33.0); Mean Corpuscular Volume 90.8 fL (80.0-98.0); Mean Platelet Volume 9.2 fL (9.4-12.4); Platelet Count 286 X10*3/uL (160-400); Red Blood Count 3.15 X10*6/uL (4.60-5.80); Red Cell Distribution Width 15.5 % (11.0-16.0); White Blood Count 3.8 X10*3/uL (4.8-10.8)
--- NOTE | 2021-10-17 12:53 | P.OP_ITS ---
Operative Note Operative Note Date of Service: 03/05/21 Narrative: FLEXIBLE TRANSORAL UPPER GASTROINTESTINAL ENDOSCOPY UPPER ENDOSCOPY Consent: Indications for the procedure and potential complications of bleeding, perforation, reaction to medications and missed diagnosis were discussed with the patient and informed consent was obtained. Instrument: Olympus ultra slim scope Monitoring: Vital signs and clinical assessment, continuous EKG monitoring, Pulse oximetry, Carbon Dioxide monitoring and blood pressure monitoring were done throughout the procedure. Procedure: The patient was placed in the left lateral decubitis position and pre-procedure medications were administered and a bite block was placed. The endoscope was inserted into the mouth and advanced under direct vision to the third part of duodenum. A careful inspection was made as the upper endoscope was withdrawn including a retroflexed examination of the proximal stomach; Findings and interventions are described below. Findings: Larynx:normal Esophagus: GE junction at 37 cm, diaphragm hiatus at 40 cm, consistent with 3 cm sliding hiatal hernia- salmon pink mucosa noted consistent with barretts esophagus about 3-4 cm in length Stricture noted at 25 cm and also tight upper esophageal sphincter. Under di rect endoscopic visualization a ballon was passed and dilated to max 12 mm, with tear and blood noted. Still unable to get a regular EGD scope past unfortunately. Stomach: normal. Grade 2 flap valve on retroflexed examination of the cardia. 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 avoid nsaids for 1 week, can use tylenol for pain if needed no source for GI bleeding seen, can prep for o/p colonoscopy
--- NOTE | 2021-10-17 12:53 | P.BOP_ITS ---
Brief Operative Note Date of Service: 10/17/21 Pre-op diagnosis: anemia, dysphagia Post-op diagnosis: same Surgeon: Renard Payan MD Anesthesia: MAC Was an Turf And Grounds Supervisor used for this Procedure?: No Estimated blood loss (mL): 10
[2021-10-17 13:05] VITALS: BP 97/41; PULSE 81; RESP 20; TEMP 36.8; O2SAT 98
[2021-10-17 13:20] VITALS: BP 105/60; PULSE 80; RESP 20; O2SAT 98
[2021-10-17 13:35] VITALS: BP 114/59; PULSE 72; RESP 20; O2SAT 98
[2021-10-17 13:50] VITALS: BP 123/66; PULSE 70; RESP 19; TEMP 36.7; O2SAT 98
== END 2021-10-17 14:50 | disposition home or self-care (01) ==
PROVIDERS: Nurse Practitioner; PCP Internal Medicine; Visit Provider Internal Medicine Gastroenterology
PROC: 0DJ08ZZ Inspection of Upper Intestinal Tract, Via Natural or Artificial Opening Endoscopic (ICD-10-PCS; CPT 43235; principal; 2021-10-17 11:20)
DX: K22.2 Esophageal obstruction (principal); K44.9 Diaphragmatic hernia without obstruction or gangrene; D64.9 Anemia, unspecified; I71.9 Aortic aneurysm of unspecified site, without rupture; J44.9 Chronic obstructive pulmonary disease, unspecified; K21.9 Gastro-esophageal reflux disease without esophagitis; Z88.0 Allergy status to penicillin; Z88.8 Allergy status to other drugs, medicaments and biological substances; Z85.21 Personal history of malignant neoplasm of larynx; Z92.21 Personal history of antineoplastic chemotherapy; Z92.3 Personal history of irradiation
CPT/HCPCS: 43249; 36415; 85027; C1726

== ENCOUNTER → 2021-10-21 09:52 | Outpatient (BNVA) | payer MEDICARE, SELFPAY | PROVIDERS: PCP Internal Medicine; Visit Provider Internal Medicine | DX: M96.1 Postlaminectomy syndrome, not elsewhere classified (principal) | CPT/HCPCS: 99202 ==

== ENCOUNTER 2021-11-21 13:10 | Outpatient (REF) | payer MEDICARE, SELFPAY ==
[2021-11-21 13:45] LABS: MANUAL DIFF FLAG NO
[2021-11-21 14:15] LABS: Basophils Absolute Auto 0.1 X10*3/uL (0.0-0.2); Basophils Percent Auto 0.9 % (0-2); Eosinophils Absolute Auto 0.2 X10*3/uL (0.0-0.4); Eosinophils Percent Auto 3.3 % (0-4); Hematocrit 29.7 % (42.0-52.0); Hemoglobin 9.1 g/dl (14.0-18.0); Imm Gran Abs Auto 0.02 X10*3/uL (0.00-0.03); Imm Gran Pct Auto 0.4 % (0.0-0.4); Immature Retic Fraction 20.9 % (2.3-13.4); Lymphocytes Absolute Auto 0.5 X10*3/uL (1.2-4.9); Lymphocytes Percent Auto 8.9 % (20-40); Mean Corpuscular HGB Conc 30.6 g/dl (31.0-36.0); Mean Corpuscular Hemoglobin 28.3 pg (27.0-33.0); Mean Corpuscular Volume 92.5 fL (80.0-98.0); Mean Platelet Volume 9.7 fL (9.4-12.4); Monocytes Absolute Auto 0.6 X10*3/uL (0.1-1.2); Monocytes Percent Auto 11.2 % (2-11); Neutrophils Absolute Auto 4.1 x10*3/uL (2.0-8.3); Neutrophils Percent Auto 75.3 % (45-73); Platelet Count 292 X10*3/uL (160-400); Red Blood Count 3.21 X10*6/uL (4.60-5.80); Red Cell Distribution Width 17.5 % (11.0-16.0); Retic HGB Equivalent 30.5 pg (30.0-35.0); Reticulocyte Percent 1.8 % (0.5-1.8); Reticulocytes Absolute 0.057 X10*6/uL (0.026-0.095); White Blood Count 5.4 X10*3/uL (4.8-10.8)
[2021-11-21 14:46] LABS: Alanine Aminotransferase 14 U/L (0-40); Albumin Level 3.8 g/dL (3.5-5.0); Alkaline Phosphatase 79 U/L (39-117); Anion Gap 10 (12-20); Aspartate Amino Transferase 25 U/L (5-37); Bilirubin Total 0.2 mg/dL (0.0-1.0); Blood Urea Nitrogen 15 mg/dL (9-16); Calcium 9.3 mg/dL (8.4-10.2); Carbon Dioxide 32 mmol/L (22-29); Chloride 103 mmol/L (96-108); Estimated Glomerular Filt Rate > 60; Glucose Random 90 mg/dL (60-115); Potassium 4.3 mmol/L (3.3-5.1); Sodium 141 mmol/L (135-145); Total Protein 7.2 g/dL (6.5-8.0)
[2021-11-21 14:53] LABS: Ferritin 29 ng/mL (20-250)
== END 2021-11-21 13:11 | disposition home or self-care (01) ==
LOC: HO.LAB 13:10
PROVIDERS: PCP Internal Medicine; Visit Provider Internal Medicine Medical Oncology
DX: C11.1 Malignant neoplasm of posterior wall of nasopharynx (principal); D64.9 Anemia, unspecified
CPT/HCPCS: 36415; 80053; 82728; 85025; 85045

== ENCOUNTER 2021-12-04 05:55 | Outpatient (REF) | payer OTHER, SELFPAY ==
--- NOTE | ~2021-12-04 | FL_ITS ---
EXAMINATION: XR FLUOROSCOPY WITH IMAGES CLINICAL INFORMATION: Postlaminectomy syndrome COMPARISON: None. TECHNIQUE: Fluoroscopy performed by Dr. Torsten Sims. Fluoroscopy time: 0.3 minutes DAP: 3.29 Gycm2 Images: 4 FINDINGS: Images demonstrate patient be status post pedicle screw and ken[place] fixation L4-L5. is seen directed from a posterior approach into the region of the L3-L4 disc space with contrast within the soft tissues. FL/FL guidance in treatment room IMPRESSION: Fluoroscopy provided for pain management.
== END 2021-12-04 05:56 | disposition home or self-care (01) ==
LOC: HO.RADIR 05:55
PROVIDERS: Visit Provider Internal Medicine
DX: M96.1 Postlaminectomy syndrome, not elsewhere classified (principal); M54.16 Radiculopathy, lumbar region
CPT/HCPCS: 64483; 64484; J1100; Q9967

== ENCOUNTER 2021-12-06 09:50 | Emergency (ER) | payer OTHER, SELFPAY ==
--- NOTE | ~2021-12-06 | CT_ITS ---
CT FACIAL BONES WITH IV CONTRAST CLINICAL INFORMATION: Left facial abscess. COMPARISON: Neck CTA and head CT 03/04/2021. TECHNIQUE: Multidetector CT acquisition of the face is obtained following the administration of 85 mL of Omnipaque 350 intravenous contrast without complication. This CT examination was performed using dose optimization techniques as appropriate, variously including the following: *Automated exposure control *Adjustment of mA and/or kV according to patient size (this includes techniques or standardized protocols for targeted exams where dose is matched to indication/reason for exam; i.e. extremities or head) *Use of iterative reconstruction technique FINDINGS: There is extensive cellulitis throughout the left facial soft tissues extending from the left perimandibular soft tissues to the left buccal space, the bilateral perimaxillary soft tissues, involving upper greater than lower lip, the left nasolabial fold, and the left preseptal orbital soft tissues. Possible premaxillary abscess on image 97 of series 2 measuring up to 2.2 cm in size overlying the maxillary nasal spine and philtrum that is centrally near fluid density. No additional drainable fluid collections identified. The patient is edentulous. There is multilevel cervical spondylosis. Mastoid air cells and middle ear cavities are clear. Paranasal sinuses remain well-aerated. There is rightward deviation of the cartilaginous nasal septum and there is leftward deviation of the bony nasal septum. Orbital accessory parotid tissue superficial to the left masseter muscle. There is fatty atrophy of the parotid glands bilaterally. CT/CT facial bones w con IMPRESSION: There is extensive cellulitis throughout the left facial soft tissues extending from the left perimandibular soft tissues to the left buccal space, the bilateral perimaxillary soft tissues, involving upper greater than lower lip, the left nasolabial fold, and the left preseptal orbital soft tissues. Possible premaxillary abscess on image 97 of series 2 measuring up to 2.2 cm in size overlying the maxillary nasal spine and philtrum that is centrally near fluid density. No additional drainable fluid collections identified. The patient is edentulous.
[2021-12-06 09:54] VITALS: BP 102/62; PULSE 100; RESP 15; TEMP 36.2; O2SAT 98; BMI 21.1
--- NOTE | 2021-12-06 10:06 | ED_ITS ---
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 now with swelling and pain and redness to left cheek, severely swollen lip and periorbital swelling. Onset (ago): day(s) Location: face Severity: severe Pain Consistency: constant Associated symptoms: fever/chills and rash Related Data Home Medications Medication Instructions Recorded Confirmed cyanocobalamin (vitamin B-12) 1 tab PO DAILY 06/21/20 10/21/21 1,000 mcg tablet (Vitamin B-12) nitroglycerin 0.4 mg sublingual 1 tab SUBLINGUAL NEEDED PRN 06/21/20 10/21/21 tablet umeclidinium 62.5 mcg-vilanterol 1 inh INHALATION DAILY 06/21/20 10/21/21 25 mcg/actuation powdr for inhalation (Anoro Ellipta) fluticasone propionate 110 2 inh INHALATION BID 09/28/20 10/21/21 mcg/actuation HFA aerosol inhaler artifi.tears(hypromellose)(PF) 0.3 1 drp OPHTHALMIC (EYE) BID PRN 03/04/21 10/21/21 % eye drops gabapentin 400 mg capsule 1 cap PO TID 03/04/21 10/21/21 levothyroxine 75 mcg tablet 1 tab PO DAILY 03/04/21 10/21/21 losartan 50 mg tablet 1 tab PO DAILY 03/04/21 10/21/21 tizanidine 4 mg tablet 1 tab PO BEDTIME 03/04/21 10/21/21 acetaminophen 500 mg tablet 500 mg PO TID PRN 05/14/21 10/21/21 atorvastatin 80 mg tablet 80 mg PO BEDTIME 06/04/21 10/21/21 omeprazole 20 mg capsule,delayed 1 cap PO DAILY 09/24/21 10/21/21 release ferrous sulfate 325 mg (65 mg 1 tab PO DAILY 09/30/21 10/21/21 iron) tablet (FeroSul) duloxetine 30 mg capsule,delayed 30 mg PO DAILY 10/21/21 10/21/21 release (Cymbalta) duloxetine 60 mg capsule,delayed 60 mg PO DAILY 10/21/21 10/21/21 release (Cymbalta) naloxone 4 mg/actuation nasal 4 mg INTRANASAL Q2M 10/21/21 10/21/21 spray (Narcan) Previous Rx's Medication Instructions Recorded fluticasone propionate 50 1 spray INTRANASAL BID #16 g 05/14/21 mcg/actuation nasal spray,suspension sodium chloride 0.65 % nasal spray 1 spray INTRANASAL BID PRN #60 ml 05/14/21 aerosol ([place] Nasal) albuterol sulfate 90 mcg/actuation 2 puff PO Q4-6H PRN #8.5 g 08/22/21 aerosol inhaler tramadol 50 mg tablet 50 mg PO TID PRN #42 tab 09/25/21 Allergies Allergy/AdvReac Type Severity Reaction Status Date / Time Penicillins Allergy Rash Verified 12/04/21 15:31 aspirin [ASA] AdvReac Intermediate GI BLEED, Verified 12/04/21 15:31 Headaches Review of Systems Constitutional: Constitutional: Reports no additional constitutional complaints Eyes: Eyes: Reports no additional eye complaints ENT: Denies dizziness Cardiovascular: Cardiovascular: Reports no additional cardiovascular complaints Respiratory: Respiratory: Reports as per HPI Gastrointestinal: Gastrointestinal: Reports no additional gastrointestinal complaints Musculoskeletal: Musculoskeletal: Reports no additional musculoskeletal complaints Integumentary/Breasts: Skin/Breast: Denies rash Neurologic: Reports system reviewed and no additional complaints, except as documented, Denies dizziness and Denies Sensory deficit (Neuro) Psychiatric: Psychiatric: Denies anxiety PMFSH Past Medical History Medical History Anemia Aortic aneurysm Arthritis Back pain Cancer COPD (chronic obstructive pulmonary disease) COVID-19 Depression Difficulty swallowing Elevated cholesterol Esophageal stricture GERD (gastroesophageal reflux disease) History of chemotherapy History of epistaxis HTN (hypertension) Hx of radiation therapy Osteoarthritis of left shoulder Post laminectomy syndrome Pulmonary nodule Thyroid disease Surgical History H/O colonoscopy History of back surgery History of esophagogastroduodenoscopy (EGD) History of nasal surgery History of transurethral resection of prostate Family History Family History Father Brain cancer Mother CVD (cardiovascular disease) Maternal Aunt Diabetes Social History Social History Household Members: Spouse Household Members Other:: 3 Housing: Apartment Do you presently have visiting nurse or other home services: No Alcohol intake: never Patient Tobacco Use Status: Former Tobacco user Quit Date: 30 yrs ago Tobacco use type: Cigarette Cigarette Packs Per Day: 3 Cigarettes Per Day: 60.0 Years Smoked: 25 Smoked in Last 30 Days: No e-Cigarette/Vaping Use: Never Used Second Hand Smoke Exposure: No Use of substances other than those prescribed or required for medical reasons: No Advance Directives: Yes Advance Directives on File: Yes Advance Directives Date on File: 03/04/21 service: No Current occupational status: disabled Physical Exam ED Vital Signs: Vital Signs - 24 hr 12/06/21 09:54 12/06/21 10:22 Temperature 97.2 F 99.5 F Pulse Rate 100 91 Respiratory Rate 15 20 Blood Pressure 102/62 108/55 L Pulse Oximetry 98 99 BMI result Body Mass Index 21.1 Const Other: chronically ill cachectic male with very swollen face Orientation/consciousness: oriented to person and patient oriented x3 Limitations: no limitations HENMT Other: left face with erythema and edema, very swollen lip, normal tongue and pharynx Ears: external ears normal General nose exam: Normal external nose present Mouth: Normal oral and palatal mucosa present and oropharynx normal Throat: Yes posterior oropharynx normal Eyes General: appearance normal, both eyes and all related structures Neck Neck: Yes normal visual inspection Chest Chest palpation & inspection: normal inspection of the chest Resp Auscultation: clear to auscultation bilaterally Cardio Jugular venous distension: no JVD Rate: regular rate Rhythm: regular rhythm Heart sounds: S1 normal heart sound present and S2 normal heart sound present GI Inspection: Yes normal to inspection Palpation (GI): Soft to palpation, nontender and No hepatosplenomegaly present Auscultation: normal bowel sounds General: Yes no CVA tenderness Back/Spine/Pelvis Back: no CVA tenderness Skin General skin exam: no rashes or lesions noted Neuro General: oriented to person and patient oriented x3 Cranial nerves: Yes CN's II-XII intact bilaterally Motor exam (neuro): 5/5 motor strength present throughout Sensory Exam: No Sensory deficit (Neuro) Extrem General: Yes normal to inspection Psych Appearance: grossly normal Course Reevaluation(s) Reevaluation #1: because of abscess and extensive cellulitis patient will need ENT coverage and admission, his old pharyngeal cancer is likely the precipitating factor Time: 13:36 Medical Decision Making Lab Data Result diagrams: 12/06/21 10:28 12/06/21 10:46 Labs: Lab Results 12/06/21 12/06/21 Range/Units 10:28 10:46 WBC 12.2 H (4.8-10.8) X10*3/uL RBC 2.92 L (4.60-5.80) X10*6/uL Hgb 8.6 L (14.0-18.0) g/dl Hct 27.0 L (42.0-52.0) % MCV 92.5 (80.0-98.0) fL MCH 29.5 (27.0-33.0) pg MCHC 31.9 (31.0-36.0) g/dl RDW 17.3 H (11.0-16.0) % Plt Count 301 (160-400) X10*3/uL MPV 9.6 (9.4-12.4) fL Immature Gran % (Auto) 0.7 H (0.0-0.4) % Neut % (Auto) 90.1 H (45-73) % Lymph % (Auto) 2.5 L (20-40) % [place] % (Auto) 6.2 (2-11) % Eos % (Auto) 0.3 (0-4) % Baso % (Auto) 0.2 (0-2) % Lymph # (Auto) 0.3 L (1.2-4.9) X10*3/uL [place] # (Auto) 0.8 (0.1-1.2) X10*3/uL Eos # (Auto) 0.0 (0.0-0.4) X10*3/uL Baso # (Auto) 0.0 (0.0-0.2) X10*3/uL Abs Immat Gran (auto) 0.08 H (0.00-0.03) X10*3/uL Absolute Neuts (auto) 11.0 H (2.0-8.3) x10*3/uL Absolute Nucleated RBC 0.000 (0.0-0.012) X10*3/uL Nucleated RBC % (auto) 0.0 (0.0-0.2) /100WBC Smear Tech's Comments VERIFIED Sodium 135 (135-145) mmol/L Potassium 3.3 D (3.3-5.1) mmol/L Chloride 97 (96-108) mmol/L Carbon Dioxide 30 H (22-29) mmol/L Anion Gap 11 L (12-20) BUN 14 (9-16) mg/dL Creatinine 0.97 (0.5-1.4) mg/dL Estim Creat Clear Calc 60.4 Estimated GFR > 60 Random Glucose 77 (60-115) mg/dL Calcium 8.6 D (8.4-10.2) mg/dL Imaging Data facial CT: Radiologist's impression: 2cm abscess with extensive cellulitis going around eye and into lip Critical Care Time Critical Care Time Attestation: I spent 40 minutes of critical care, with interventions, assessments, speaking to patient, consultants, and family. Discharge Plan Discharge Clinical Impression: Abscess of face, Abscess of facial bone, Cellulitis and abscess of face Patient Disposition: er [facility] Transfer Details: Needs ENT for abscess Prescriptions: No Action albuterol sulfate 90 mcg/actuation HFA aerosol inhaler 2 puff PO Q4-6H PRN (Reason: for dyspnea) Qty: 8.5 0RF losartan 50 mg tablet 1 tab PO DAILY 0RF tizanidine 4 mg tablet 1 tab PO BEDTIME 0RF gabapentin 400 mg capsule 1 cap PO TID 0RF levothyroxine 75 mcg tablet 1 tab PO DAILY 0RF artifi.tears(hypromellose)(PF) 0.3 % Drops 1 drp OPHTHALMIC (EYE) BID PRN (Reason: Dry Eyes) 0RF cyanocobalamin (vitamin B-12) [Vitamin B-12] 1,000 mcg tablet 1 tab PO DAILY 0RF nitroglycerin 0.4 mg tablet, sublingual 1 tab sublingual NEEDED PRN (Reason: Chest Pain) 0RF Anoro Ellipta 62.5-25 mcg/actuation Blister With Device 1 inh INHALATION DAILY 0RF atorvastatin 80 mg tablet 80 mg PO BEDTIME 0RF omeprazole 20 mg capsule,delayed release(DR/EC) 1 cap PO DAILY 0RF tramadol 50 mg tablet 50 mg PO TID PRN (Reason: Pain) Qty: 42 5RF ferrous sulfate [FeroSul] 325 mg (65 mg iron) tablet 1 tab PO DAILY 0RF acetaminophen 500 mg tablet 500 mg PO TID PRN (Reason: headache) 0RF fluticasone propionate 50 mcg/actuation spray,suspension 1 spray intranasal BID Qty: 16 0RF Rx Instructions: administer into each nostril sodium chloride [[place] Nasal] 0.65 % aerosol,spray 1 spray intranasal BID PRN (Reason: dry nasal passages) Qty: 60 0RF fluticasone propionate 110 mcg/actuation HFA aerosol inhaler 2 inh inhalation BID 0RF duloxetine [Cymbalta] 30 mg capsule,delayed release(DR/EC) 30 mg PO DAILY 0RF duloxetine [Cymbalta] 60 mg capsule,delayed release(DR/EC) 60 mg PO DAILY 0RF naloxone [Narcan] 4 mg/actuation spray,non-aerosol 4 mg intranasal Q2M 0RF Rx Instructions: spray 1 dose into ONE nostril; alternate nostrils w each dose until help arrives
[2021-12-06 10:22] VITALS: BP 108/55; PULSE 91; RESP 20; TEMP 37.5; O2SAT 99
[2021-12-06 10:38] LABS: Basophils Percent Auto 0.2 % (0-2); Eosinophils Percent Auto 0.3 % (0-4); Hemoglobin 8.6 g/dl (14.0-18.0); Imm Gran Abs Auto 0.08 X10*3/uL (0.00-0.03); Imm Gran Pct Auto 0.7 % (0.0-0.4); Lymphocytes Absolute Auto 0.3 X10*3/uL (1.2-4.9); Lymphocytes Percent Auto 2.5 % (20-40); MANUAL DIFF FLAG SCAN; Mean Corpuscular HGB Conc 31.9 g/dl (31.0-36.0); Mean Corpuscular Hemoglobin 29.5 pg (27.0-33.0); Mean Corpuscular Volume 92.5 fL (80.0-98.0); Mean Platelet Volume 9.6 fL (9.4-12.4); Monocytes Absolute Auto 0.8 X10*3/uL (0.1-1.2); Monocytes Percent Auto 6.2 % (2-11); Neutrophils Percent Auto 90.1 % (45-73); Platelet Count 301 X10*3/uL (160-400); Red Blood Count 2.92 X10*6/uL (4.60-5.80); Red Cell Distribution Width 17.3 % (11.0-16.0); SCAN SMEAR FLAG 1; White Blood Count 12.2 X10*3/uL (4.8-10.8)
[2021-12-06 10:56] LABS: SLIDE REVIEW VERIFIED
[2021-12-06 11:11] LABS: Anion Gap 11 (12-20); Blood Urea Nitrogen 14 mg/dL (9-16); Calcium 8.6 mg/dL (8.4-10.2); Carbon Dioxide 30 mmol/L (22-29); Chloride 97 mmol/L (96-108); Creatinine Clr Calc Pharmacy 60.4; Estimated Glomerular Filt Rate > 60; Glucose Random 77 mg/dL (60-115); Potassium 3.3 mmol/L (3.3-5.1); Sodium 135 mmol/L (135-145)
[2021-12-06] MEDS: iohexoL 350 MG/ML 100 ML INFUS..BTL 85 ML IV (12:34)
[2021-12-06 13:57] LABS: COVID-19 Test Negative (Negative); IDNOW Serial# 16C4AD1C
== END 2021-12-06 14:51 | disposition short-term general hospital (02) ==
PROVIDERS: Emergency Provider Emergency Medicine; PCP Internal Medicine
DX: L02.01 Cutaneous abscess of face (principal); L03.211 Cellulitis of face; R50.9 Fever, unspecified; Z20.822 Contact with and (suspected) exposure to COVID-19; I10 Essential (primary) hypertension; E78.5 Hyperlipidemia, unspecified; Z87.891 Personal history of nicotine dependence; Z85.819 Personal history of malignant neoplasm of unspecified site of lip, oral cavity, and pharynx; Z92.3 Personal history of irradiation; Z92.21 Personal history of antineoplastic chemotherapy; Z79.02 Long term (current) use of antithrombotics/antiplatelets; Z79.899 Other long term (current) drug therapy
CPT/HCPCS: 36415; 70487; 80048; 85025; 87040; 87635; 96365; 99285; 99291; J0690; Q9967

== ENCOUNTER → 2022-01-10 09:10 | Outpatient (BNVA) | payer OTHER, SELFPAY | PROVIDERS: PCP Internal Medicine; Visit Provider Internal Medicine | DX: M96.1 Postlaminectomy syndrome, not elsewhere classified (principal); M19.90 Unspecified osteoarthritis, unspecified site | CPT/HCPCS: 99212 ==

== ENCOUNTER 2022-03-17 21:10 | Inpatient (IN) | payer OTHER, SELFPAY ==
[2022-03-17] VITALS (7 sets, daily range): BP systolic 81–132; BP diastolic 51–108; PULSE 60–82; RESP 12–16; TEMP 36.6–36.7; O2SAT 96–100; BMI 20.3
--- NOTE | ~2022-03-17 | XR_ITS ---
EXAMINATION: XR CHEST CLINICAL INFORMATION: Chest pain COMPARISON: Previous chest x-ray September [address] September 2020 TECHNIQUE: Frontal view of the chest was obtained. FINDINGS: The cardiac and mediastinal contours are stable. Nodular opacities appear improved or decreased in size compared to September 2021 exam. Largest nodular opacity measures 8 mm in the left perihilar region. No new nodule or opacity. There is no pleural effusion or pneumothorax. Bony structures are unremarkable. XR/XR chest 1V IMPRESSION: Improving nodular opacities compared to previous exams.
--- NOTE | ~2022-03-17 | CT_ITS ---
EXAMINATION: CT ANGIOGRAM OF THE CHEST; CONTRAST-ENHANCED CT OF THE ABDOMEN AND PELVIS INDICATION: Syncope, history of abdominal aortic aneurysm COMPARISON: 03/29/2021 TECHNIQUE: 85 MLO Omnipaque 350 IV contrast was utilized. Multidetector helical imaging was performed through the chest per PE protocol. Coronal, sagittal, and MIP images of the chest were created. In addition, multidetector helical imaging was performed through the abdomen and pelvis. Coronal and sagittal reformatted images were created at the technologist workstation. DOSE LOWERING TECHNIQUES: This CT examination was performed using dose optimization techniques as appropriate, variously including the following: - Automated exposure control - Adjustment of mA and/or kV according to patient size (this includes techniques or standardized protocols for targeted exams were dose is matched to indication/reason for exam; i.e. extremities or head) - Use of iterative reconstruction technique DLP: 1234 mGy-cm FINDINGS: Chest: No filling defects are seen in the main, lobar, or segmental pulmonary arteries to suggest the presence of pulmonary emboli. Redemonstrated biapical scarring. Mild emphysema is present. There is curvilinear and mild patchy opacity in the left upper and lower lobes, some of which is new from prior and suggesting at least a component of atelectasis. There is some partial resolution of a prior region of dense posterior right upper lobe consolidation, with residual curvilinear opacity suggesting developing scarring. Patchy, somewhat nodular irregularly shaped opacity is present in the lateral right middle lobe measuring approximately 1.6 cm on image 233/516, new from prior. Prior patchy right lower lobe consolidations have now resolved. No pneumothorax or pleural effusion. Included thyroid gland appears diminutive. No mediastinal lymphadenopathy is seen. Cardiac size is within normal limits. Trace pericardial fluid is present. Coronary artery calcifications are present. There is atherosclerotic calcification along the aorta. The ascending aorta appears dilated to approximately 4.4 cm. No axillary lymphadenopathy is present. Abdomen/Pelvis: The liver is homogeneous in attenuation without intrahepatic biliary ductal dilatation. Redemonstrated small cyst in the anterior left hepatic lobe. The gallbladder is unremarkable. Redemonstrated calcified granuloma in the spleen. The pancreas and adrenal glands are within normal limits. Bilateral nephrograms are symmetric. There is a lobulated contour of the kidneys, right greater than left. A few scattered subcentimeter renal hypodensities are too small to characterize, statistically favoring cysts. A 2 mm calculus is noted in the upper right kidney. Right extrarenal pelvis is noted. No obstructing calculus is seen. The urinary bladder is distended. No evidence of bowel obstruction. Assessment for wall thickening in some segments of the colon is limited due to luminal collapse. Moderate stool is present in the rectum. The appendix appears nondilated. No free fluid or free air is identified. There is atherosclerotic calcification along the aorta and iliac arteries. No evidence of aortic aneurysm. No retroperitoneal or pelvic lymphadenopathy is seen. Degenerative changes are noted in the spine. Status post L4-L5 fusion. CT/CT angio chest PE protocol IMPRESSION: 1. No pulmonary embolus identified. 2. Scattered patchy areas of focal and curvilinear pulmonary opacity, some of which has improved since 03/29/2021, while others are new. These may represent post inflammatory changes, though there is a more focal nodular density in the right middle lobe for which malignancy would be difficult to entirely exclude. Follow-up chest CT in 3 months is recommended. 3. Dilated ascending aorta to approximately 4.4 cm. No evidence of abdominal aortic aneurysm. 4. Moderate stool in the colon. Limited evaluation for wall thickening within some segments of the colon due to luminal collapse.
--- NOTE | ~2022-03-17 | CT_ITS ---
EXAMINATION: CT HEAD WITHOUT CONTRAST CLINICAL INFORMATION: Syncope COMPARISON: 02/24/2021 TECHNIQUE: Contiguous axial imaging was performed from the skull base to vertex without intravenous administration of contrast. This CT examination was performed using dose optimization techniques as appropriate, variously including the following: *Automated exposure control *Adjustment of mA and/or kV according to patient size (this includes techniques or standardized protocols for targeted exams where dose is matched to indication/reason for exam; i.e. extremities or head) *Use of iterative reconstruction technique DLP: 1234 mGy-cm FINDINGS: There is no evidence of acute intracranial hemorrhage or territorial infarction. No abnormal mass effect or midline shift is seen. [place] to white matter differentiation is well preserved. No extra-axial fluid collections are identified. The ventricles are normal in size. There is mild periventricular white matter hypoattenuation consistent with chronic small vessel ischemic disease. Moderate volume loss is noted. The osseous structures and soft tissues are normal. The mastoid air cells and visualized portions of the paranasal sinuses are well aerated. CT/CT head/brain wo con IMPRESSION: No acute intracranial pathology.
--- NOTE | 2022-03-17 21:25 | ED_ITS ---
HPI - Syncope General Chief Complaint: Syncope Stated Complaint: syncope Time Seen by Provider: 03/17/22 21:25 History of Present Illness HPI narrative: Patient is a 71-year-old male with a long history of lower back pain. Had procedure done in the past. Complaining of feeling the legs give out. Lightheaded. Then had a syncopal episode. Patient was noted to have low blood pressure by EMS. Denies any chest pain. No fever no chills. Previous history of throat cancer. Currently not on treatment. No fever no chills no coughing or congestion. Related Data Home Medications Medication Instructions Recorded Confirmed cyanocobalamin (vitamin B-12) 1 tab PO DAILY 06/21/20 10/21/21 1,000 mcg tablet (Vitamin B-12) nitroglycerin 0.4 mg sublingual 1 tab sublingual NEEDED PRN 06/21/20 10/21/21 tablet Chest Pain umeclidinium 62.5 mcg-vilanterol 1 inh inhalation DAILY 06/21/20 10/21/21 25 mcg/actuation powdr for inhalation (Anoro Ellipta) fluticasone propionate 110 2 inh inhalation BID 09/28/20 10/21/21 mcg/actuation HFA aerosol inhaler artifi.tears(hypromellose)(PF) 0.3 1 drp ophthalmic (eye) BID PRN Dry 03/04/21 10/21/21 % eye drops Eyes gabapentin 400 mg capsule 1 cap PO TID 03/04/21 10/21/21 levothyroxine 75 mcg tablet 1 tab PO DAILY 03/04/21 10/21/21 losartan 50 mg tablet 1 tab PO DAILY 03/04/21 10/21/21 tizanidine 4 mg tablet 1 tab PO BEDTIME 03/04/21 10/21/21 acetaminophen 500 mg tablet 500 mg PO TID PRN headache 05/14/21 10/21/21 atorvastatin 80 mg tablet 80 mg PO BEDTIME 06/04/21 10/21/21 omeprazole 20 mg capsule,delayed 1 cap PO DAILY 09/24/21 10/21/21 release ferrous sulfate 325 mg (65 mg 1 tab PO DAILY 09/30/21 10/21/21 iron) tablet (FeroSul) duloxetine 30 mg capsule,delayed 30 mg PO DAILY 10/21/21 10/21/21 release (Cymbalta) duloxetine 60 mg capsule,delayed 60 mg PO DAILY 10/21/21 10/21/21 release (Cymbalta) naloxone 4 mg/actuation nasal 4 mg intranasal Q2M 10/21/21 10/21/21 spray (Narcan) Previous Rx's Medication Instructions Recorded fluticasone propionate 50 1 spray intranasal BID #16 grams 05/14/21 mcg/actuation nasal spray,suspension sodium chloride 0.65 % nasal spray 1 spray intranasal BID PRN dry 05/14/21 aerosol ([place] Nasal) nasal passages #60 mL tramadol 50 mg tablet 50 mg PO TID PRN Pain #42 tabs 09/25/21 albuterol sulfate 90 mcg/actuation 2 puff PO Q4-6H PRN for dyspnea 03/04/22 aerosol inhaler #8.5 grams Allergies Allergy/AdvReac Type Severity Reaction Status Date / Time Penicillins Allergy Rash Verified 01/10/22 09:22 aspirin [ASA] AdvReac Intermediate GI BLEED, Verified 01/10/22 09:22 Headaches Review of Systems Review of Systems: No chest pain. No bloody stool. No coughing or congestion upper respiratory symptoms. Yes all other systems are reviewed and are negative PMFSH Past Medical History Attestation statement: The following information was validated with the patient. Medical History Anemia Aortic aneurysm Arthritis Back pain Cancer COPD (chronic obstructive pulmonary disease) COVID-19 Depression Difficulty swallowing Elevated cholesterol Esophageal stricture GERD (gastroesophageal reflux disease) History of chemotherapy History of epistaxis HTN (hypertension) Hx of radiation therapy Osteoarthritis of left shoulder Post laminectomy syndrome Pulmonary nodule Thyroid disease Surgical History H/O colonoscopy History of back surgery History of esophagogastroduodenoscopy (EGD) History of nasal surgery History of transurethral resection of prostate Family History Family History Father Brain cancer Mother CVD (cardiovascular disease) Maternal Aunt Diabetes Social History Social History Household Members: Spouse Household Members Other:: 3 Housing: Apartment Do you presently have visiting nurse or other home services: No Alcohol intake: never Patient Tobacco Use Status: Never used Tobacco Tobacco use type: Cigarette Cigarette Packs Per Day: 3 Cigarettes Per Day: 60.0 Years Smoked: 25 e-Cigarette/Vaping Use: Never Used Second Hand Smoke Exposure: No Use of substances other than those prescribed or required for medical reasons: No Advance Directives: Yes Advance Directives on File: Yes Advance Directives Date on File: 03/04/21 service: No Current occupational status: disabled Physical Exam Vital Signs: Vital Signs: Last Vital Signs Temp 98.0 F 03/17/22 22:00 Pulse 82 03/18/22 04:49 Resp 16 03/18/22 04:00 BP 75/46 L 03/18/22 04:49 Pulse Ox 97 03/18/22 04:00 O2 Del Method 03/18/22 04:00 BMI result Body Mass Index 20.3 Appearance: Alert. Oriented X3. No acute distress. Eyes: Pupils equal, round and reactive to light. ENT: Pharynx normal. Neck: Normal inspection. Neck supple. No lymph nodes noted. No crepitus CVS: Normal heart rate and rhythm. Pulses normal. Normal S1 and S2 Respiratory: No respiratory distress. Breath sounds normal. No Wheezing. No rales Abdomen: Soft and nontender. No rigidity. No distention. good BS x4 Skin: Skin warm and dry. Normal skin color. Normal skin turgor. Extremities: No lower extremity edema. Neurovascular intact to all extremities. No Lacerations. No Rash Neuro: Oriented X 3. No motor deficit. No sensory deficit. Moving all extermities. No slurred speech MDM - Syncope MDM Narrative Medical decision making narrative: 71-year-old male presented today with having a syncopal episode. Patient is grossly orthostatics given IV fluids here in emergency department. CT a of the chest showed no evidence of pulmonary emboli. Patient EKG showed a sinus pattern heart rate is 80 RI QRS QT within normal limits is no acute ST segment elevation. CT scan of the head was grossly negative for any acute evidence of bleeding. CT scan of the abdomen pelvis did not show any ruptured aortic aneurysm. Patient's aneurysm is in the ascending aorta as proximally 4.4 cm in size and size is unchanged. Currently in stable condition will give additional fluid patient to be admitted as he when he stood up his blood pressure drop in the 80s despite IV fluid. Patient will be monitored overnight for his . Differential Diagnosis Differential diagnosis: Likely syncope due to orthostatic hypotension, vasovagal syncope, complete atrioventricular block, subarachnoid hemorrhage, pulmonary embolism and dehydration Medical Records Attestation: I reviewed the patient's medical records. Lab Data Attestation: I reviewed the patient's lab results. Result diagrams: 03/17/22 21:46 03/17/22 22:06 Labs: Lab Results 03/17/22 03/17/22 03/17/22 Range/Units 21:46 21:46 21:46 WBC 8.2 (4.8-10.8) X10*3/uL RBC 3.19 L (4.60-5.80) X10*6/uL Hgb 9.5 L (14.0-18.0) g/dl Hct 29.6 L (42.0-52.0) % MCV 92.8 (80.0-98.0) fL MCH 29.8 (27.0-33.0) pg MCHC 32.1 (31.0-36.0) g/dl RDW 17.5 H (11.0-16.0) % Plt Count 256 (160-400) X10*3/uL MPV 9.9 (9.4-12.4) fL Immature Gran % (Auto) 0.5 H (0.0-0.4) % Neut % (Auto) 79.8 H (45-73) % Lymph % (Auto) 7.3 L (20-40) % [place] % (Auto) 11.4 H (2-11) % Eos % (Auto) 0.6 (0-4) % Baso % (Auto) 0.4 (0-2) % Lymph # (Auto) 0.6 L (1.2-4.9) X10*3/uL [place] # (Auto) 0.9 (0.1-1.2) X10*3/uL Eos # (Auto) 0.1 (0.0-0.4) X10*3/uL Baso # (Auto) 0.0 (0.0-0.2) X10*3/uL Abs Immat Gran (auto) 0.04 H (0.00-0.03) X10*3/uL Absolute Neuts (auto) 6.5 (2.0-8.3) x10*3/uL Absolute Nucleated RBC 0.000 (0.0-0.012) X10*3/uL Nucleated RBC % (auto) 0.0 (0.0-0.2) /100WBC Sodium (135-145) mmol/L Potassium (3.3-5.1) mmol/L Chloride (96-108) mmol/L Carbon Dioxide (22-29) mmol/L Anion Gap (12-20) BUN (9-16) mg/dL Creatinine (0.5-1.4) mg/dL Estim Creat Clear Calc Estimated GFR Random Glucose (60-115) mg/dL Calcium (8.4-10.2) mg/dL Total Bilirubin (0.0-1.0) mg/dL Direct Bilirubin (0.0-0.5) mg/dL AST (5-37) U/L ALT (0-40) U/L Alkaline Phosphatase (39-117) U/L Troponin I High Sens 16.9 D (<3.5-35.0) ng/L Total Protein (6.5-8.0) g/dL Albumin (3.5-5.0) g/dL Lipase (8-78) U/L Urine Color Urine Appearance Urine pH (5.0-8.0) Ur Specific [place] (1.005-1.025) Urine Protein (NEG-TRACE) MG/DL Urine Glucose (UA) (NEG) MG/DL Urine Ketones (NEG) MG/DL Urine Blood (NEG) Urine Nitrite (NEG) Ur Leukocyte Esterase (NEG) Urine RBC (0) /HPF Urine WBC (0-4) /HPF Ur Squamous Epith Cells /LPF Urine Bacteria /LPF COVID-19 (VIC) Negative (Negative) COVID-19 Clin Com See Note 03/17/22 03/17/22 Range/Units 22:06 23:53 WBC (4.8-10.8) X10*3/uL RBC (4.60-5.80) X10*6/uL Hgb (14.0-18.0) g/dl Hct (42.0-52.0) % MCV (80.0-98.0) fL MCH (27.0-33.0) pg MCHC (31.0-36.0) g/dl RDW (11.0-16.0) % Plt Count (160-400) X10*3/uL MPV (9.4-12.4) fL Immature Gran % (Auto) (0.0-0.4) % Neut % (Auto) (45-73) % Lymph % (Auto) (20-40) % [place] % (Auto) (2-11) % Eos % (Auto) (0-4) % Baso % (Auto) (0-2) % Lymph # (Auto) (1.2-4.9) X10*3/uL [place] # (Auto) (0.1-1.2) X10*3/uL Eos # (Auto) (0.0-0.4) X10*3/uL Baso # (Auto) (0.0-0.2) X10*3/uL Abs Immat Gran (auto) (0.00-0.03) X10*3/uL Absolute Neuts (auto) (2.0-8.3) x10*3/uL Absolute Nucleated RBC (0.0-0.012) X10*3/uL Nucleated RBC % (auto) (0.0-0.2) /100WBC Sodium 134 L (135-145) mmol/L Potassium 3.1 L (3.3-5.1) mmol/L Chloride 100 (96-108) mmol/L Carbon Dioxide 25 (22-29) mmol/L Anion Gap 12 (12-20) BUN 12 (9-16) mg/dL Creatinine 1.40 (0.5-1.4) mg/dL Estim Creat Clear Calc 40.3 Estimated GFR 50 Random Glucose 124 H D (60-115) mg/dL Calcium 8.8 (8.4-10.2) mg/dL Total Bilirubin 0.3 (0.0-1.0) mg/dL Direct Bilirubin < 0.2 (0.0-0.5) mg/dL AST 29 (5-37) U/L ALT 15 (0-40) U/L Alkaline Phosphatase 59 D (39-117) U/L Troponin I High Sens (<3.5-35.0) ng/L Total Protein 6.5 (6.5-8.0) g/dL Albumin 3.7 (3.5-5.0) g/dL Lipase 25 (8-78) U/L Urine Color YELLOW Urine Appearance CLEAR Urine pH 6.5 (5.0-8.0) Ur Specific [place] <= 1.005 (1.005-1.025) Urine Protein NEG (NEG-TRACE) MG/DL Urine Glucose (UA) NEG (NEG) MG/DL Urine Ketones NEG (NEG) MG/DL Urine Blood NEG (NEG) Urine Nitrite NEG (NEG) Ur Leukocyte Esterase NEG (NEG) Urine RBC 0 (0) /HPF Urine WBC 0 (0-4) /HPF Ur Squamous Epith Cells TRACE /LPF Urine Bacteria NONE /LPF COVID-19 (VIC) (Negative) COVID-19 Clin Com Discharge Plan Discharge Clinical Impression: Syncope, vasovagal Patient Disposition: Admitted As Inpatient Prescriptions: No Action albuterol sulfate 90 mcg/actuation HFA aerosol inhaler 2 puff PO Q4-6H PRN (Reason: for dyspnea) Qty: 8.5 0RF losartan 50 mg tablet 1 tab PO DAILY tizanidine 4 mg tablet 1 tab PO BEDTIME gabapentin 400 mg capsule 1 cap PO TID levothyroxine 75 mcg tablet 1 tab PO DAILY artifi.tears(hypromellose)(PF) 0.3 % Drops 1 drp OPHTHALMIC (EYE) BID PRN (Reason: Dry Eyes) cyanocobalamin (vitamin B-12) [Vitamin B-12] 1,000 mcg tablet 1 tab PO DAILY nitroglycerin 0.4 mg tablet, sublingual 1 tab sublingual NEEDED PRN (Reason: Chest Pain) Anoro Ellipta 62.5-25 mcg/actuation Blister With Device 1 inh INHALATION DAILY atorvastatin 80 mg tablet 80 mg PO BEDTIME omeprazole 20 mg capsule,delayed release(DR/EC) 1 cap PO DAILY tramadol 50 mg tablet 50 mg PO TID PRN (Reason: Pain) Qty: 42 5RF ferrous sulfate [FeroSul] 325 mg (65 mg iron) tablet 1 tab PO DAILY acetaminophen 500 mg tablet 500 mg PO TID PRN (Reason: headache) fluticasone propionate 50 mcg/actuation spray,suspension 1 spray intranasal BID Qty: 16 0RF Rx Instructions: administer into each nostril sodium chloride [[place] Nasal] 0.65 % aerosol,spray 1 spray intranasal BID PRN (Reason: dry nasal passages) Qty: 60 0RF fluticasone propionate 110 mcg/actuation HFA aerosol inhaler 2 inh inhalation BID duloxetine [Cymbalta] 30 mg capsule,delayed release(DR/EC) 30 mg PO DAILY duloxetine [Cymbalta] 60 mg capsule,delayed release(DR/EC) 60 mg PO DAILY naloxone [Narcan] 4 mg/actuation spray,non-aerosol 4 mg intranasal Q2M Rx Instructions: spray 1 dose into ONE nostril; alternate nostrils w each dose until help arrives
--- NOTE | 2022-03-17 21:29 | ECG_ITS ---
Test Reason : syncopy Blood Pressure : / mmHG Vent. Rate : 066 BPM Atrial Rate : 066 BPM P-R Int : 136 ms QRS Dur : 076 ms QT Int : 348 ms P-R-T Axes : 076 023 048 degrees QTc Int : 364 ms Normal sinus rhythm with sinus arrhythmia Nonspecific ST and T wave abnormality Abnormal ECG When compared with ECG of 30-SEP-2021 19:43, Nonspecific T wave abnormality now evident in Inferior leads Nonspecific T wave abnormality, worse in Anterolateral leads QT has shortened Referred By: Deborah Barrett Electronically Signed By:VANDA MALIK MD
[2022-03-17] MEDS: 0.9 % Sodium Chloride 1,000 ML 999 ML IV ×2 (21:48→23:46)
[2022-03-17 21:52] LABS: MANUAL DIFF FLAG NO
[2022-03-17 21:53] LABS: Basophils Percent Auto 0.4 % (0-2); Eosinophils Absolute Auto 0.1 X10*3/uL (0.0-0.4); Eosinophils Percent Auto 0.6 % (0-4); Hematocrit 29.6 % (42.0-52.0); Hemoglobin 9.5 g/dl (14.0-18.0); Imm Gran Abs Auto 0.04 X10*3/uL (0.00-0.03); Imm Gran Pct Auto 0.5 % (0.0-0.4); Lymphocytes Absolute Auto 0.6 X10*3/uL (1.2-4.9); Lymphocytes Percent Auto 7.3 % (20-40); Mean Corpuscular HGB Conc 32.1 g/dl (31.0-36.0); Mean Corpuscular Hemoglobin 29.8 pg (27.0-33.0); Mean Corpuscular Volume 92.8 fL (80.0-98.0); Mean Platelet Volume 9.9 fL (9.4-12.4); Monocytes Absolute Auto 0.9 X10*3/uL (0.1-1.2); Monocytes Percent Auto 11.4 % (2-11); Neutrophils Absolute Auto 6.5 x10*3/uL (2.0-8.3); Neutrophils Percent Auto 79.8 % (45-73); Platelet Count 256 X10*3/uL (160-400); Red Blood Count 3.19 X10*6/uL (4.60-5.80); Red Cell Distribution Width 17.5 % (11.0-16.0); White Blood Count 8.2 X10*3/uL (4.8-10.8)
[2022-03-17 22:10] LABS: COVID-19 Test Negative (Negative); IDNOW Serial# 55D5AD1C
[2022-03-17 22:15] LABS: Troponin-I High Sensitivity 16.9 ng/L (<3.5-35.0)
[2022-03-17 22:30] LABS: Alanine Aminotransferase 15 U/L (0-40); Albumin Level 3.7 g/dL (3.5-5.0); Alkaline Phosphatase 59 U/L (39-117); Anion Gap 12 (12-20); Aspartate Amino Transferase 29 U/L (5-37); Bilirubin Direct < 0.2 mg/dL (0.0-0.5); Bilirubin Total 0.3 mg/dL (0.0-1.0); Blood Urea Nitrogen 12 mg/dL (9-16); Calcium 8.8 mg/dL (8.4-10.2); Carbon Dioxide 25 mmol/L (22-29); Chloride 100 mmol/L (96-108); Creatinine Clr Calc Pharmacy 40.3; Estimated Glomerular Filt Rate 50; Glucose Random 124 mg/dL (60-115); Lipase 25 U/L (8-78); Potassium 3.1 mmol/L (3.3-5.1); Sodium 134 mmol/L (135-145); Total Protein 6.5 g/dL (6.5-8.0)
[2022-03-18] VITALS (15 sets, daily range): BP systolic 75–168; BP diastolic 46–108; PULSE 61–85; RESP 1–17; TEMP 36.7–37.2; O2SAT 97–99; BMI 22.2
[2022-03-18] LABS: Appearance Urine CLEAR; Color Urine YELLOW; Glucose Urine UA NEG (NEG); Leukocyte Esterase Urine NEG (NEG); Nitrite Urine NEG (NEG); PH 6.5 (5.0-8.0); Specific Gravity - Urine <= 1.005 (1.005-1.025); Urine Blood NEG (NEG); Urine Ketones NEG (NEG); Urine Protein NEG (NEG-TRACE)
[2022-03-18 00:16] LABS: RBC Urine 0 /HPF (0); Squamous Epithelial Cell Urine TRACE /LPF; WBC Urine 0 /HPF (0-4)
[2022-03-18] MEDS: Ketorolac Tromethamine 30 MG/ML VIAL IVPUSH (00:50)
[2022-03-18] MEDS: iohexoL 350 MG/ML 100 ML INFUS..BTL 85 ML IV (01:31)
--- NOTE | 2022-03-18 04:36 | PC.NURSE ---
per provider ok to infuse last ns liter.
[2022-03-18] MEDS: 0.9 % Sodium Chloride 1,000 ML 999 ML IV (04:37)
--- NOTE | 2022-03-18 05:29 | P.HPHOSP_ITS ---
History of Present Illness Date of Service: 03/18/22 Chief Complaint: syncope, low bp 1-year-old male with past medical history of anemia, history of aortic aneurysm, throat cancer in 2002 status post radiation, COPD, dysphagia due to esophageal stricture in the setting of throat cancer and radiation therapy, HTN no longer on antihypertensives who presents to the hospital with a syncopal episode. Patient reports that he had 1 syncopal episode that lasted few minutes, he was confused upon waking up. He reports that he was sitting, got up, felt very dizzy, and then passed out. Patient reports the at he has not been eating too well due to his history of esophageal stricture and is usually just takes fluids. He reports no headache, no head trauma, no chest pain, no shortness of breath, no abdominal pain nausea or vomiting, no diarrhea constipation, no urinary symptoms and no lower extremity edema. He reports no previous similar episode. He reports being not on any antihypertensives for several months now. Arrival to the ED patient hemodynamically stable with BP of 97/53, patient orthostatic vitals were positive with BP dropping to 81/51 on standing up from 129/61 laying down. Labs are significant for WBC count of 8.2, hemoglobin 9.5, hematocrit of 29.6 all around his baseline. Sodium of 134, potassium of 3.1, otherwise unremarkable Patient given IV fluids and will be admitted for further management Review of Systems Review of Systems: Yes all other systems are reviewed and are negative [facility] Medical History Anemia Aortic aneurysm Arthritis Back pain Cancer COPD (chronic obstructive pulmonary disease) COVID-19 Depression Difficulty swallowing Elevated cholesterol Esophageal stricture GERD (gastroesophageal reflux disease) History of chemotherapy History of epistaxis HTN (hypertension) Hx of radiation therapy Osteoarthritis of left shoulder Post laminectomy syndrome Pulmonary nodule Thyroid disease Family History Father Brain cancer Mother CVD (cardiovascular disease) Maternal Aunt Diabetes Surgical History H/O colonoscopy History of back surgery History of esophagogastroduodenoscopy (EGD) History of nasal surgery History of transurethral resection of prostate Social History Household Members: Spouse Household Members Other:: 3 Housing: Apartment Do you presently have visiting nurse or other home services: No Alcohol intake: never Patient Tobacco Use Status: Never used Tobacco Tobacco use type: Cigarette Cigarette Packs Per Day: 3 Cigarettes Per Day: 60.0 Years Smoked: 25 e-Cigarette/Vaping Use: Never Used Second Hand Smoke Exposure: No Use of substances other than those prescribed or required for medical reasons: No Advance Directives: Yes Advance Directives on File: Yes Advance Directives Date on File: 03/04/21 service: No Current occupational status: disabled Meds Allergies Allergy/AdvReac Type Severity Reaction Status Date / Time Penicillins Allergy Rash Verified 01/10/22 09:22 aspirin [ASA] AdvReac Intermediate GI BLEED, Verified 01/10/22 09:22 Headaches Active Medications: Current Medications Sodium Chloride (Ns) 1,000 mls @ 999 mls/hr IV .Q1H1M FRANCK Stop: 03/18/22 06:30 Sodium Chloride (Ns) 1,000 mls @ 999 mls/hr IV .Q1H1M FRANCK Stop: 03/18/22 06:30 Pharmacy Consult (Consult Rx Perform Med Rec) 1 each MISCELLANE ONCE PRN PRN Reason: Consult order Home Medications Medication Instructions Recorded Confirmed Last Taken Type cyanocobalamin (vitamin B-12) 1 tab PO DAILY 06/21/20 10/21/21 09/22/21 History 1,000 mcg tablet (Vitamin B-12) nitroglycerin 0.4 mg sublingual 1 tab sublingual NEEDED PRN 06/21/20 10/21/21 09/22/21 History tablet Chest Pain umeclidinium 62.5 mcg-vilanterol 1 inh inhalation DAILY 06/21/20 10/21/21 09/22/21 History 25 mcg/actuation powdr for inhalation (Anoro Ellipta) fluticasone propionate 110 2 inh inhalation BID 09/28/20 10/21/21 09/22/21 History mcg/actuation HFA aerosol inhaler artifi.tears(hypromellose)(PF) 0.3 1 drp ophthalmic (eye) BID PRN Dry 03/04/21 10/21/21 09/22/21 History % eye drops Eyes gabapentin 400 mg capsule 1 cap PO TID 03/04/21 10/21/2109/22/22 History levothyroxine 75 mcg tablet 1 tab PO DAILY 03/04/21 10/21/21 Unknown History losartan 50 mg tablet 1 tab PO DAILY 03/04/21 10/21/21 09/22/21 History tizanidine 4 mg tablet 1 tab PO BEDTIME 03/04/21 10/21/21 09/22/21 History acetaminophen 500 mg tablet 500 mg PO TID PRN headache 05/14/21 10/21/21 09/22/21 History atorvastatin 80 mg tablet 80 mg PO BEDTIME 06/04/21 10/21/21 09/22/21 History omeprazole 20 mg capsule,delayed 1 cap PO DAILY 09/24/21 10/21/21 09/22/21 History release ferrous sulfate 325 mg (65 mg 1 tab PO DAILY 09/30/21 10/21/21 Unknown History iron) tablet (FeroSul) duloxetine 30 mg capsule,delayed 30 mg PO DAILY 10/21/21 10/21/21 Unknown History release (Cymbalta) duloxetine 60 mg capsule,delayed 60 mg PO DAILY 10/21/21 10/21/21 Unknown History release (Cymbalta) naloxone 4 mg/actuation nasal 4 mg intranasal Q2M 10/21/21 10/21/21 Unknown History spray (Narcan) Physical Exam Vital Signs and Narrative: Vital Signs: Last Vital Signs Temp 98.0 F 03/17/22 22:00 Pulse 82 03/18/22 04:49 Resp 16 03/18/22 04:00 BP 75/46 L 03/18/22 04:49 Pulse Ox 97 03/18/22 04:00 O2 Del Method 03/18/22 04:00 BMI result Body Mass Index 20.3 Const: Other: thin-appearing man in no acute distress General: cooperative and no acute d istress Orientation/consciousness: patient oriented x3 Eyes: General: appearance normal, both eyes and all related structures Resp: Effort & Inspection: normal respiratory effort Auscultation: clear to auscultation bilaterally Cardio: Rate: regular rate Rhythm: regular rhythm GI: Palpation (GI): Soft to palpation Auscultation: normal bowel sounds Skin: General skin exam: no rashes or lesions noted Neuro: General: patient oriented x3 Cognition (Neuro): normal cognition Extrem: General: Yes normal to inspection and Yes no pedal edema Results Labs CBC and Chem 7: 03/17/22 21:46 03/17/22 22:06 Labs: Laboratory Results - last 24 hr 03/17/22 03/17/22 03/17/22 21:46 21:46 21:46 MCV 92.8 MCH 29.8 MCHC 32.1 RDW 17.5 H Plt Count 256 MPV 9.9 Immature Gran % (Auto) 0.5 H Neut % (Auto) 79.8 H Lymph % (Auto) 7.3 L [place] % (Auto) 11.4 H Eos % (Auto) 0.6 Baso % (Auto) 0.4 Lymph # (Auto) 0.6 L [place] # (Auto) 0.9 Eos # (Auto) 0.1 Baso # (Auto) 0.0 Abs Immat Gran (auto) 0.04 H Absolute Neuts (auto) 6.5 Absolute Nucleated RBC 0.000 Nucleated RBC % (auto) 0.0 Anion Gap Estim Creat Clear Calc Estimated GFR Random Glucose Calcium Total Bilirubin Direct Bilirubin AST ALT Alkaline Phosphatase Troponin I High Sens 16.9 D Total Protein Albumin Lipase Urine Color Urine Appearance Urine pH Ur Specific Herman Urine Protein Urine Glucose (UA) Urine Ketones Urine Blood Urine Nitrite Ur Leukocyte Esterase Urine RBC Urine WBC Ur Squamous Epith Cells Urine Bacteria COVID-19 (VIC) Negative COVID-19 Clin Com See Note 03/17/22 03/17/22 22:06 23:53 MCV MCH MCHC RDW Plt Count MPV Immature Gran % (Auto) Neut % (Auto) Lymph % (Auto) [place] % (Auto) Eos % (Auto) Baso % (Auto) Lymph # (Auto) [place] # (Auto) Eos # (Auto) Baso # (Auto) Abs Immat Gran (auto) Absolute Neuts (auto) Absolute Nucleated RBC Nucleated RBC % (auto) Anion Gap 12 Estim Creat Clear Calc 40.3 Estimated GFR 50 Random Glucose 124 H D Calcium 8.8 Total Bilirubin 0.3 Direct Bilirubin < 0.2 AST 29 ALT 15 Alkaline Phosphatase 59 D Troponin I High Sens Total Protein 6.5 Albumin 3.7 Lipase 25 Urine Color YELLOW Urine Appearance CLEAR Urine pH 6.5 Ur Specific Herman <= 1.005 Urine Protein NEG Urine Glucose (UA) NEG Urine Ketones NEG Urine Blood NEG Urine Nitrite NEG Ur Leukocyte Esterase NEG Urine RBC 0 Urine WBC 0 Ur Squamous Epith Cells TRACE Urine Bacteria NONE COVID-19 (VIC) COVID-19 Clin Com Imaging Radiologist's Impressions: Impressions Chest X-Ray 03/17/22 22:47 IMPRESSION: Improving nodular opacities compared to previous exams. Abdomen/Pelvis CT 03/18/22 01:15 IMPRESSION: 1. No pulmonary embolus identified. 2. Scattered patchy areas of focal and curvilinear pulmonary opacity, some of which has improved since 03/29/2021, while others are new. These may represent post inflammatory changes, though there is a more focal nodular density in the right middle lobe for which malignancy would be difficult to entirely exclude. Follow-up chest CT in 3 months is recommended. 3. Dilated ascending aorta to approximately 4.4 cm. No evidence of abdominal aortic aneurysm. 4. Moderate stool in the colon. Limited evaluation for wall thickening within some segments of the colon due to luminal collapse. Chest CTA 03/18/22 01:15 IMPRESSION: 1. No pulmonary embolus identified. 2. Scattered patchy areas of focal and curvilinear pulmonary opacity, some of which has improved since 03/29/2021, while others are new. These may represent post inflammatory changes, though there is a more focal nodular density in the right middle lobe for which malignancy would be difficult to entirely exclude. Follow-up chest CT in 3 months is recommended. 3. Dilated ascending aorta to approximately 4.4 cm. No evidence of abdominal aortic aneurysm. 4. Moderate stool in the colon. Limited evaluation for wall thickening within some segments of the colon due to luminal collapse. Head CT 03/18/22 01:15 IMPRESSION: No acute intracranial pathology. Assessment and Plan (1) Syncope, vasovagal: Status: Acute (2) Orthostatic hypotension: Status: Acute Plan 71-year-old male with history of throat cancer, treated with radiation, developing esophageal stricture as a result, dysphagia presents to the hospital with syncopal episode found to have this static hypotension # syncopal episode - likely secondary to orthostatic hypotension - positive orthostatic vitals - likely in the setting of poor oral intake given the dysphagia and esophageal strictures - not on any antihypertensives - will treat with IV fluids - repeat orthostatic vitals prior to discharge - patient may require midodrine but his blood pressure does go up on supine position # history of hypertension - not on any medications for the past several months - monitor BP DVT prophylaxis: SCDs, and early ambulation Quality Stroke Does the patient have a stroke diagnosis?: No VTE Prior VTE?: No VTE Risk Level:: Medical - low VTE Device Contraindication: N/A - Device Ordered VTE Drug Contraindication: Treatment Not Indicated
[2022-03-18] MEDS: Lactated Ringers 1,000 ML 100 ML IVCONT (06:04)
[2022-03-18 07:07] LABS: MANUAL DIFF FLAG NO
[2022-03-18 07:10] LABS: Basophils Percent Auto 0.5 % (0-2); Eosinophils Absolute Auto 0.1 X10*3/uL (0.0-0.4); Hematocrit 26.4 % (42.0-52.0); Hemoglobin 8.4 g/dl (14.0-18.0); Imm Gran Abs Auto 0.02 X10*3/uL (0.00-0.03); Imm Gran Pct Auto 0.3 % (0.0-0.4); Lymphocytes Absolute Auto 0.7 X10*3/uL (1.2-4.9); Lymphocytes Percent Auto 11.9 % (20-40); Mean Corpuscular HGB Conc 31.8 g/dl (31.0-36.0); Mean Corpuscular Hemoglobin 29.3 pg (27.0-33.0); Mean Platelet Volume 9.6 fL (9.4-12.4); Monocytes Absolute Auto 0.8 X10*3/uL (0.1-1.2); Monocytes Percent Auto 12.8 % (2-11); Neutrophils Absolute Auto 4.4 x10*3/uL (2.0-8.3); Neutrophils Percent Auto 73.5 % (45-73); Platelet Count 224 X10*3/uL (160-400); Red Blood Count 2.87 X10*6/uL (4.60-5.80); Red Cell Distribution Width 17.2 % (11.0-16.0)
[2022-03-18 07:45] LABS: Anion Gap 7 (12-20); Blood Urea Nitrogen 10 mg/dL (9-16); Calcium 8.3 mg/dL (8.4-10.2); Carbon Dioxide 28 mmol/L (22-29); Chloride 108 mmol/L (96-108); Creatinine Clr Calc Pharmacy 68.9; Estimated Glomerular Filt Rate > 60; Glucose Random 99 mg/dL (60-115); Potassium 3.4 mmol/L (3.3-5.1); Sodium 140 mmol/L (135-145)
--- NOTE | 2022-03-18 09:17 | PC.NURSE ---
this production underwriter assumed care of this pt at 0900. pt transferred from main er to overflow unit.
--- NOTE | 2022-03-18 09:28 | PHA.MEDREC ---
med rec complete, no issues Pharmacy Consult ? Medication Reconciliation Pharmacy has completed the medication reconciliation.
--- NOTE | 2022-03-18 13:30 | PC.NURSE ---
pt alert and oriented, vss, he denies pain, up to use rest room independently. meds given as documented
--- NOTE | 2022-03-18 14:42 | PM.EVENT ---
Event Note Date of Service: 03/18/22 Event Note: 71-year-old male with history of throat cancer, treated with radiation, developing esophageal stricture as a result, dysphagia presents to the hospital with syncopal episode found to have? this static hypotension Syncopal episode Likely secondary to orthostatic hypotension with positive orthostatic vital signs Patient reports poor oral intake Patient has a history of dysphagia and esophageal strictures from radiation secondary to throat cancer Continue IV fluids Follow blood pressure closely Hold antihypertensives Hypertension Hold antihypertensive medications due to orthostatic hypotension COPD No exacerbation Continue inhalers HyperLipidemia Continue statin Hypothyroidism Continue levothyroxine DVT prophylaxis:? SCDs, and early ambulation Attending Dr. Lofton Full code
[2022-03-18] MEDS: Potassium Chloride Packet 20 MEQ PACKET 40 MEQ PO (16:19)
[2022-03-18] MEDS: Gabapentin 400 MG CAPSULE PO ×2 (16:19→21:28)
[2022-03-18] MEDS: 0.9 % Sodium Chloride Flush 3 ML SYRINGE IVFLUSH ×2 (16:25→21:28)
[2022-03-18] MEDS: 0.9 % Sodium Chloride 1,000 ML 100 ML IVCONT (16:29)
--- NOTE | 2022-03-18 18:11 | PC.NURSE ---
Report given to BEREKET Asencio. Pt will be transferred to room 476, pt aware.
[2022-03-18] MEDS: TiZANidine HCL 4 MG TABLET PO (21:28)
[2022-03-18] MEDS: traMADoL HCL 50 MG TABLET PO (22:21)
[2022-03-18] MEDS: Omeprazole 40 MG CAPSULE.DR PO (22:22)
[2022-03-19 03:41] VITALS: BP 140/65; PULSE 72; RESP 16; TEMP 36.6; O2SAT 97
[2022-03-19] MEDS: 0.9 % Sodium Chloride 1,000 ML 100 ML IVCONT (05:17)
[2022-03-19] MEDS: Omeprazole 40 MG CAPSULE.DR PO (05:17)
[2022-03-19 06:00] VITALS: BMI 22.0
[2022-03-19] MEDS: Fluticasone Propionate 100 MCG BLST.W.DEV 2 PUFF INHALE (07:33)
[2022-03-19 07:34] VITALS: RESP 18; O2SAT 96
[2022-03-19 07:57] VITALS: BP 137/79; PULSE 82; RESP 18; TEMP 36.7; O2SAT 98
[2022-03-19] MEDS: Fluticasone Propionate Nasal 16 GM SPRAY 1 SPRAY NOSTRIL-B (09:07)
[2022-03-19] MEDS: Ferrous Sulfate 324 MG TABLET.DR PO (09:07)
[2022-03-19] MEDS: Levothyroxine Sodium 75 MCG TABLET PO (09:07)
[2022-03-19] MEDS: Loratadine 10 MG TABLET PO (09:08)
[2022-03-19] MEDS: traMADoL HCL 50 MG TABLET PO ×2 (09:08→13:06)
[2022-03-19] MEDS: Folic Acid 1 MG TABLET PO (09:08)
[2022-03-19] MEDS: Gabapentin 400 MG CAPSULE PO ×2 (09:08→15:36)
[2022-03-19] MEDS: DULoxetine HCl 30 MG CAPSULE.DR PO (09:08)
[2022-03-19] MEDS: DULoxetine HCl 60 MG CAPSULE.DR PO (09:08)
[2022-03-19] MEDS: 0.9 % Sodium Chloride Flush 3 ML SYRINGE IVFLUSH ×2 (09:09→15:36)
[2022-03-19] MEDS: Cyanocobalamin (Vitamin B-12) 1,000 MCG TABLET 1000 MCG PO (09:48)
--- NOTE | 2022-03-19 10:02 | MHC.CM.PN ---
IMM addressed, original to pt and copy filed in chart. Pt reports he lives with his spouse and son, his daughter, Meredith provides 6.5 hours weekly of [employer]OR OF [employer]MISSIONS services through [facility]. He reports he is mostly independent at home and community. Pt reports [facility] nurse visits him every three (3) months to review his medications and any need for additional services. He reports DME as a cane, uses as needed, and tub bench. HCP is on file and verified. He is COVID vax'd x3 ([employer]). PCP: Tracy Oneill. Daughter will transport home. D/C Plan: Home (self-care) vs Home with New [facility] Service
--- NOTE | 2022-03-19 10:21 | PM.DS ---
DS: Providers Provider Date of Service: 03/19/22 Date of admission: 03/18/22 13:16 Primary care physician: Tracy Oneill MD Attending physician on discharge: Aleksandar Montes Discharging clinician: Becca Aguilar DS: Diagnosis Discharge Diagnosis (1) Syncope, vasovagal: Status: Acute (2) Orthostatic hypotension: Status: Acute DS: Summary Hospital Course Hospital Course: 71-year-old male with past medical history of anemia, history of aortic aneurysm, throat cancer in 2002 status post radiation, COPD, dysphagia due to? esophageal stricture in the setting of throat cancer and radiation therapy, HTN no longer on antihypertensives who presents to the hospital with a syncopal episode.? Patient reports that he had 1 syncopal episode that lasted few minutes, he was confused upon waking up.? He reports that he was sitting, got up, felt very dizzy, and then passed out.? Patient reports? the at he has not been eating too well due to his history of esophageal stricture and is usually just takes fluids.? He reports no headache, no head trauma, no chest pain, no shortness of breath, no abdominal pain nausea or vomiting, no diarrhea constipation, no urinary symptoms and no lower extremity edema.? He reports no previous similar episode.? He reports being not on any antihypertensives for several months now.?Arrival to the ED patient hemodynamically stable with? BP of 97/53, patient orthostatic vitals were positive with BP dropping to 81/51 on standing up from 129/61 laying down. Labs are significant for WBC count of 8.2, hemoglobin 9.5, hematocrit of 29.6 all around his baseline.? Sodium of 134, potassium of 3.1, otherwise unremarkable Patient given IV fluids and will be admitted for further management . Syncopal episode econdary to orthostatic hypotension due to poor p.o. intake Patient has a history of dysphagia and esophageal strictures from radiation secondary to throat cancer Treated with IV fluids Stable blood pressures Antihypertensives held May resume at home Hypertension Held antihypertensive medications due to orthostatic hypotension Resolved may resume COPD No exacerbation Continue inhalers HyperLipidemia Continue statin Hypothyroidism Continue levothyroxine Time Spent with Patient Time attestation: Total time spent providing and/or coordinating discharge services: Discharge coordination time: Greater than 30 minutes Quality: Safe Use of Opioids Does Pt have an Active Cancer Diagnosis on the Problem List?: No Quality: Stroke Does the patient have a stroke diagnosis?: No Physical Exam Vital Signs: Vital Signs: Last Vital Signs Temp 98.0 F 03/19/22 07:57 Pulse 82 03/19/22 07:57 Resp 18 03/19/22 07:57 BP 137/79 03/19/22 07:57 Pulse Ox 98 03/19/22 07:57 O2 Del Method 03/19/22 07:57 BMI result Body Mass Index 22.0 Appearing in no acute distress head is normocephalic atraumatic eyes pupils are PERRLA sclera is anicteric mouth throat mucous membranes are intact and moist neck is supple no lymphadenopathy, no JVD noted lung sounds are clear to auscultation heart regular rate rhythm, clear S1, S2 positive bowel sounds, abdomen is soft, nontender neuro patient is alert x3, no focal deficits DS: Data Data Completed and Pending Completed studies during hospitalization [Text1]: Procedures Dilation of Esophagus, Via Natural or Artificial Opening Endoscopic (03/04/21) Transfusion of Nonautologous Red Blood Cells into Peripheral Vein, Percutaneous Approach (09/24/21) Discharge Plan Discharge Anticipated Discharge Date/Time: 03/19/22 10:15 Patient Disposition: Home, Self-Care Discharge Diagnosis: Orthostatic hypotension Referrals: Tracy Oneill MD [Primary Care Provider] - 1 Week Discharge Medications: Continued losartan 50 mg tablet 1 tab PO DAILY gabapentin 400 mg capsule 1 cap PO TID levothyroxine 75 mcg tablet 1 tab PO DAILY artifi.tears(hypromellose)(PF) 0.3 % Drops 1 drp OPHTHALMIC (EYE) BID PRN (Reason: Dry Eyes) cyanocobalamin (vitamin B-12) [Vitamin B-12] 1,000 mcg tablet 1 tab PO DAILY nitroglycerin 0.4 mg tablet, sublingual 1 tab sublingual NEEDED PRN (Reason: Chest Pain) Anoro Ellipta 62.5-25 mcg/actuation Blister With Device 1 inh INHALATION DAILY atorvastatin 80 mg tablet 80 mg PO BEDTIME albuterol sulfate 90 mcg/actuation HFA aerosol inhaler 2 puff PO Q4H PRN (Reason: for dyspnea) folic acid 1 mg Tablet 1 mg PO DAILY fluticasone propionate 50 mcg/actuation spray,suspension 1 spray intranasal DAILY Rx Instructions: administer into each nostril omeprazole 40 mg Capsule,Delayed Release(Dr/Ec) 40 mg PO DAILY levocetirizine 5 mg Tablet 5 mg PO DAILY tramadol 50 mg tablet 50 mg PO TID PRN (Reason: Pain) Qty: 15 0RF ferrous sulfate [FeroSul] 325 mg (65 mg iron) tablet 1 tab PO DAILY acetaminophen 500 mg tablet 500 mg PO TID PRN (Reason: headache) sodium chloride [[place] Nasal] 0.65 % aerosol,spray 1 spray intranasal BID PRN (Reason: dry nasal passages) Qty: 60 0RF fluticasone propionate 110 mcg/actuation HFA aerosol inhaler 2 inh inhalation BID duloxetine [Cymbalta] 30 mg capsule,delayed release(DR/EC) 30 mg PO DAILY Rx Instructions: TAKES TOGETHER WITH 60 MG CAPSULE duloxetine [Cymbalta] 60 mg capsule,delayed release(DR/EC) 60 mg PO DAILY Rx Instructions: TAKES TOGETHER WITH 30 MG CAPSULE naloxone [Narcan] 4 mg/actuation spray,non-aerosol 4 mg intranasal Q2M PRN (Reason: Opioid Overdose) Rx Instructions: spray 1 dose into ONE nostril; alternate nostrils w each dose until help arrives Changed tizanidine 4 mg tablet 4 mg PO BEDTIME Qty: 30 0RF Discharge Orders: Discharge Order (Routine); Ordered 03/19/22 Ordered By: Aleksandar Montes Diet: Advance to usual diet Activity on Discharge: As tolerated Stand Alone Forms: Patient Portal Discharge page Care Plan Goals: Complete resolution of symptoms Health Concerns: Orthostatic hypotension Plan of Treatment: Follow-up with primary care provider as needed Drink plenty of fluids Assessment: See discharge summary Discharge Date/Time: 03/19/22 16:18
[2022-03-19 11:29] VITALS: BP 168/89; PULSE 74; RESP 18; TEMP 36.6; O2SAT 98
--- NOTE | 2022-03-19 11:37 | MHC.CM.PN ---
Pt is medically cleared for discharge today; discharge is Home (Self-Care).
== END 2022-03-19 16:18 | disposition home or self-care (01) | DRG 312 ==
LOC: HO.ED 03-18 05:29 → HO.EDOVER 03-18 05:35 → HO.IMC 03-18 17:18
PROVIDERS: Admitting Provider Internal Medicine; Emergency Provider Emergency Medicine Emergency Medical Services; PCP Internal Medicine; Visit Provider Nurse Practitioner Acute Care
DX: I95.1 Orthostatic hypotension (principal); E03.9 Hypothyroidism, unspecified; J44.9 Chronic obstructive pulmonary disease, unspecified; E78.5 Hyperlipidemia, unspecified; Z20.822 Contact with and (suspected) exposure to COVID-19; Z85.21 Personal history of malignant neoplasm of larynx; Z92.21 Personal history of antineoplastic chemotherapy; Z92.3 Personal history of irradiation; Z88.0 Allergy status to penicillin; Z88.6 Allergy status to analgesic agent; Z79.890 Hormone replacement therapy; Z79.899 Other long term (current) drug therapy
CPT/HCPCS: 36415; 70450; 71045; 71275; 74177; 80048; 80076; 81001; 83690; 83735; 84484; 85025; 87635; 92610; 93005; 94640; 96361; 96374; 97161; 99219; 99285; J1885; Q9967

== ENCOUNTER 2022-03-23 14:03 | Emergency (ER) | payer OTHER, SELFPAY ==
--- NOTE | 2022-03-23 | ECG_ITS ---
Test Reason : dizzyness Blood Pressure : / mmHG Vent. Rate : 070 BPM Atrial Rate : 070 BPM P-R Int : 136 ms QRS Dur : 076 ms QT Int : 418 ms P-R-T Axes : 069 019 060 degrees QTc Int : 451 ms Normal sinus rhythm Minimal voltage criteria for LVH, may be normal variant ( [place] ) Nonspecific ST and T wave abnormality Abnormal ECG When compared with ECG of 17-MAR-2022 21:58, Nonspecific T wave abnormality no longer evident in Anterior leads QT has lengthened Referred By: Generic ED Physician Electronically Signed By:Ilya Lomax
[2022-03-23 14:11] VITALS: BP 102/53; PULSE 86; O2SAT 97
[2022-03-23 15:16] VITALS: BP 118/64; PULSE 80; RESP 14; TEMP 36.6; O2SAT 98; BMI 20.7
== END 2022-03-23 19:25 | disposition left against medical advice (07) ==
PROVIDERS: Emergency Provider Emergency Medicine
DX: R42 Dizziness and giddiness (principal); R51.9 Headache, unspecified
CPT/HCPCS: 93005; 99283

== ENCOUNTER → 2022-04-07 09:01 | Outpatient (BNVA) | payer OTHER, SELFPAY | PROVIDERS: PCP Internal Medicine; Visit Provider Internal Medicine Rheumatology | DX: M17.12 Unilateral primary osteoarthritis, left knee (principal); M19.049 Primary osteoarthritis, unspecified hand; M47.817 Spondylosis without myelopathy or radiculopathy, lumbosacral region; M79.7 Fibromyalgia | CPT/HCPCS: 20610; 99212 ==

== ENCOUNTER 2022-04-14 08:38 | Outpatient (REF) | payer OTHER, SELFPAY ==
[2022-04-14 09:03] LABS: MANUAL DIFF FLAG NO
[2022-04-14 09:24] LABS: Basophils Percent Auto 0.9 % (0-2); Eosinophils Absolute Auto 0.1 X10*3/uL (0.0-0.4); Eosinophils Percent Auto 3.3 % (0-4); Hemoglobin 9.6 g/dl (14.0-18.0); Imm Gran Abs Auto 0.01 X10*3/uL (0.00-0.03); Imm Gran Pct Auto 0.3 % (0.0-0.4); Lymphocytes Absolute Auto 0.6 X10*3/uL (1.2-4.9); Lymphocytes Percent Auto 17.5 % (20-40); Mean Corpuscular Hemoglobin 29.3 pg (27.0-33.0); Mean Corpuscular Volume 91.5 fL (80.0-98.0); Monocytes Absolute Auto 0.5 X10*3/uL (0.1-1.2); Neutrophils Absolute Auto 2.1 x10*3/uL (2.0-8.3); Platelet Count 268 X10*3/uL (160-400); Red Blood Count 3.28 X10*6/uL (4.60-5.80); Red Cell Distribution Width 17.8 % (11.0-16.0); White Blood Count 3.4 X10*3/uL (4.8-10.8)
[2022-04-14 09:57] LABS: Alanine Aminotransferase 14 U/L (0-40); Albumin Level 4.1 g/dL (3.5-5.0); Alkaline Phosphatase 71 U/L (39-117); Anion Gap 13 (12-20); Aspartate Amino Transferase 23 U/L (5-37); Bilirubin Total 0.2 mg/dL (0.0-1.0); Blood Urea Nitrogen 13 mg/dL (9-16); Calcium 9.1 mg/dL (8.4-10.2); Carbon Dioxide 27 mmol/L (22-29); Chloride 105 mmol/L (96-108); Cholesterol 164 mg/dL; Estimated Glomerular Filt Rate > 60; Glucose Random 101 mg/dL (60-115); HDL Cholesterol 50 mg/dL; LDL Cholesterol Calculated 99 mg/dl; Potassium 4.2 mmol/L (3.3-5.1); Sodium 141 mmol/L (135-145); Total Protein 7.3 g/dL (6.5-8.0); Triglycerides 79 mg/dL
[2022-04-14 10:19] LABS: Ferritin 26 ng/mL (20-250)
[2022-04-14 11:03] LABS: Vitamin B12 684 pg/mL (200-900)
== END 2022-04-14 08:39 | disposition home or self-care (01) ==
LOC: HO.LAB 08:38
PROVIDERS: PCP Internal Medicine; Visit Provider Internal Medicine
DX: D50.8 Other iron deficiency anemias (principal); E03.8 Other specified hypothyroidism; E78.00 Pure hypercholesterolemia, unspecified; E87.6 Hypokalemia; R55 Syncope and collapse; I95.89 Other hypotension
CPT/HCPCS: 36415; 80053; 80061; 82607; 82728; 85025

== ENCOUNTER → 2022-04-28 09:23 | Outpatient (BNVA) | payer OTHER, SELFPAY | PROVIDERS: PCP Internal Medicine; Visit Provider Internal Medicine | DX: M25.552 Pain in left hip (principal); M54.16 Radiculopathy, lumbar region; M96.1 Postlaminectomy syndrome, not elsewhere classified; Z79.899 Other long term (current) drug therapy; Z79.891 Long term (current) use of opiate analgesic | CPT/HCPCS: 99212 ==

== ENCOUNTER 2022-04-29 08:30 | Outpatient (REF) | payer OTHER, SELFPAY ==
--- NOTE | ~2022-04-29 | XR_ITS ---
EXAMINATION: XR HIP, LEFT CLINICAL INFORMATION: Pain in left hip COMPARISON: None TECHNIQUE: Two views of the left hip. FINDINGS: No fracture or dislocation. The left hip is well aligned. Small osteophytes. The left pelvis is intact. Spinal fusion hardware partially visualized. Stool in the rectum. XR/XR hip LT min 2V IMPRESSION: Mild degenerative change of the left hip.
== END 2022-04-29 08:31 | disposition home or self-care (01) ==
LOC: HO.XRAY 08:30
PROVIDERS: PCP Internal Medicine; Visit Provider Internal Medicine
DX: M25.552 Pain in left hip (principal); M54.16 Radiculopathy, lumbar region; M96.1 Postlaminectomy syndrome, not elsewhere classified
CPT/HCPCS: 73502

== ENCOUNTER 2022-05-21 06:36 | Outpatient (REF) | payer OTHER, SELFPAY ==
--- NOTE | ~2022-05-21 | FL_ITS ---
EXAMINATION: XR FLUOROSCOPY WITH IMAGES CLINICAL INFORMATION: M25.552 - Pain in left hip COMPARISON: Radiographs left hip 04/29/2022 TECHNIQUE: Fluoroscopy performed by Dr. Torsten Sims. Fluoroscopy time: 0.1 minutes. Cumulative Dose: 0.831 mGy. DAP: 0.186 Gy-cm2. Images: 1. FINDINGS: There are 3 spinal needles overlying the right iliac crest. Some contrast is seen in the soft tissues. No visible vascular communication. FL/FL guidance in treatment room IMPRESSION: Fluoroscopy for pain management procedure.
== END 2022-05-21 06:37 | disposition home or self-care (01) ==
LOC: HO.RADIR 06:36
PROVIDERS: Visit Provider Internal Medicine
DX: M25.552 Pain in left hip (principal); M96.1 Postlaminectomy syndrome, not elsewhere classified; G58.8 Other specified mononeuropathies
CPT/HCPCS: 64450; J1040

== ENCOUNTER → 2022-06-27 08:59 | Outpatient (BNVA) | payer OTHER, SELFPAY | PROVIDERS: PCP Internal Medicine; Visit Provider Internal Medicine | DX: G58.8 Other specified mononeuropathies (principal); M47.816 Spondylosis without myelopathy or radiculopathy, lumbar region | CPT/HCPCS: 99212 ==

== ENCOUNTER 2022-07-01 15:41 | Emergency (ER) | payer OTHER, SELFPAY | END 2022-07-01 21:11 | disposition left against medical advice (07) | PROVIDERS: Emergency Provider Emergency Medicine; PCP Internal Medicine | DX: R51.9 Headache, unspecified (principal) ==

== ENCOUNTER 2022-07-03 11:10 | Outpatient (REF) | payer OTHER, SELFPAY ==
[2022-07-03 14:08] LABS: MANUAL DIFF FLAG NO
[2022-07-03 14:26] LABS: Basophils Percent Auto 0.3 % (0-2); Eosinophils Absolute Auto 0.1 X10*3/uL (0.0-0.4); Eosinophils Percent Auto 0.6 % (0-4); Hematocrit 25.2 % (42.0-52.0); Hemoglobin 8.2 g/dl (14.0-18.0); Imm Gran Abs Auto 0.06 X10*3/uL (0.00-0.03); Imm Gran Pct Auto 0.6 % (0.0-0.4); Lymphocytes Absolute Auto 0.5 X10*3/uL (1.2-4.9); Lymphocytes Percent Auto 5.2 % (20-40); Mean Corpuscular HGB Conc 32.5 g/dl (31.0-36.0); Mean Corpuscular Hemoglobin 30.3 pg (27.0-33.0); Mean Platelet Volume 10.5 fL (9.4-12.4); Monocytes Absolute Auto 0.9 X10*3/uL (0.1-1.2); Monocytes Percent Auto 9.3 % (2-11); Neutrophils Absolute Auto 8.5 x10*3/uL (2.0-8.3); Platelet Count 544 X10*3/uL (160-400); Red Blood Count 2.71 X10*6/uL (4.60-5.80); Red Cell Distribution Width 16.1 % (11.0-16.0); White Blood Count 10.1 X10*3/uL (4.8-10.8)
[2022-07-03 14:35] LABS: Carbon Dioxide 23 mmol/L (22-29)
[2022-07-03 14:36] LABS: Alanine Aminotransferase 28 U/L (0-40); Albumin Level 3.7 g/dL (3.5-5.0); Alkaline Phosphatase 72 U/L (39-117); Anion Gap 17 (12-20); Aspartate Amino Transferase 28 U/L (5-37); Bilirubin Total 0.3 mg/dL (0.0-1.0); Blood Urea Nitrogen 16 mg/dL (9-16); Calcium 9.2 mg/dL (8.4-10.2); Chloride 102 mmol/L (96-108); Cholesterol 100 mg/dL; Estimated Glomerular Filt Rate > 60; Glucose Fasting 101 mg/dL (60-99); HDL Cholesterol 20 mg/dL; LDL Cholesterol Calculated 64 mg/dl; Potassium 4.9 mmol/L (3.3-5.1); Sodium 137 mmol/L (135-145); Total Protein 7.1 g/dL (6.5-8.0); Triglycerides 84 mg/dL
[2022-07-03 14:46] LABS: Ferritin 271 ng/mL (20-250); Thyroid Stimulating Hormone 4.35 uIU/mL (0.32-4.0)
== END 2022-07-03 11:11 | disposition home or self-care (01) ==
LOC: HO.10HDL 11:10
PROVIDERS: Visit Provider Internal Medicine
DX: Z12.5 Encounter for screening for malignant neoplasm of prostate (principal); D64.89 Other specified anemias; E03.9 Hypothyroidism, unspecified; R07.89 Other chest pain; R42 Dizziness and giddiness
CPT/HCPCS: 36415; 80053; 80061; 82728; 84153; 84443; 85025

== ENCOUNTER 2022-07-09 19:50 | Inpatient (IN) | payer OTHER, SELFPAY ==
--- NOTE | ~2022-07-09 | XR_ITS ---
EXAMINATION: XR CHEST CLINICAL INFORMATION: Chest pain COMPARISON: Chest x-ray 03/17/2022, chest CT 03/18/2022 TECHNIQUE: Frontal view of the chest was obtained. FINDINGS: Increased attenuation in the lateral right lung apex, which may be artifactual as opposed to true airspace opacity. Minimal linear scarring in the left lung base. No other focal airspace opacity. No pleural effusion or pneumothorax. Normal cardiomediastinal silhouette. No evidence of pulmonary edema. No acute osseous injury. XR/XR chest 1V IMPRESSION: 1. Increased attenuation in the lateral right lung apex, which may be artifactual as opposed to true airspace opacity. Consider a repeat chest x-ray and lateral view. 2. No definite acute pulmonary process.
--- NOTE | ~2022-07-09 | CT_ITS ---
EXAMINATION: CT CHEST WITHOUT CONTRAST CLINICAL INFORMATION: Cough COMPARISON: Chest x-ray 07/09/2022 TECHNIQUE: Multidetector volumetric CT imaging of the chest was done. Axial MIP volume rendering provided. Sagittal and coronal reformatted images were obtained. This CT examination was performed using dose optimization techniques as appropriate, variously including the following: *Automated exposure control *Adjustment of mA and/or kV according to patient size (this includes techniques or standardized protocols for targeted exams where dose is matched to indication/reason for exam; i.e. extremities or head) *Use of iterative reconstruction technique DLP: 193 mGy-cm FINDINGS: LUNGS: Semisolid material is present in the trachea. Dense region of opacity is present in the right upper lobe posteriorly. Additional heterogeneous consolidation in the adjacent superior right lower lobe. Redemonstrated irregularly-shaped nodular focus along the right minor fissure as well as curvilinear density in the right middle lobe posteriorly. Biapical scarring is noted. Mild upper lobe predominant emphysema. There are curvilinear regions of opacity in the lingula and left lower lobe, suggesting atelectasis. Before meals irregularly shaped somewhat nodular foci in the left lung appears similar to 03/18/2022. MEDIASTINUM: Small hiatal hernia. No discrete lymphadenopathy is seen, though assessment is limited without intravenous contrast. Prominent ascending aorta measures approximately 4.4 cm in diameter. Cardiac size is within normal limits. Small pericardial effusion. There is atherosclerotic calcification along the aorta. CORONARY ARTERY CALCIFICATION: Present PLEURA: There is no pleural effusion. No pleural mass or thickening. AXILLA: No lymphadenopathy. UPPER ABDOMEN: Unremarkable. OSSEOUS STRUCTURES: Unremarkable. CT/CT chest wo IV con IMPRESSION: 1. Dense region of opacity in the right upper lobe with additional heterogeneous consolidation in the adjacent superior right lower lobe. Appearance is suspicious for pneumonia in the proper clinical setting, though malignancy would be difficult to exclude. Follow-up chest CT in 3 months is recommended to assess for resolution. 2. Semisolid material in the trachea, which could reflect aspiration. 3. Redemonstrated scattered irregularly shaped foci bilaterally, overall similar to 03/18/2022, though attention on follow-up is recommended. 4. Prominent ascending aorta measuring approximately 4.4 cm in diameter. 5. Small pericardial effusion. 6. Small hiatal hernia.
--- NOTE | ~2022-07-09 | CT_ITS ---
EXAMINATION: CT CERVICAL SPINE WITHOUT CONTRAST CLINICAL INFORMATION: Radiculopathy. COMPARISON: Cervical spine CT 05/20/2020. TECHNIQUE: CT of the cervical spine was performed without contrast. Multiplanar reformats were rendered and reviewed. This CT examination was performed using dose optimization techniques as appropriate, variously including the following: *Automated exposure control *Adjustment of mA and/or kV according to patient size (this includes techniques or standardized protocols for targeted exams where dose is matched to indication/reason for exam; i.e. extremities or head) *Use of iterative reconstruction technique DLP: 193 mGy-cm FINDINGS: The cervical vertebral bodies maintain normal heights and alignment. There is significant disc height loss at C5-C6. There is severe right-sided facet arthropathy at C3-C4, new from prior. There is no significant narrowing of the spinal canal. Uncovertebral hypertrophy and facet arthropathy results in mild to moderate neural foraminal stenosis at C5-C6. No additional moderate or severe neural foraminal stenosis is seen. The imaged intracranial contents demonstrates involutional changes but no acute abnormality is seen. There is amorphous soft tissue thickening along the bilateral carotid sheaths without evidence of discrete nodularity, suggesting treatment-related change. Thickening of the supraglottic structures including epiglottis is also demonstrated. There is atrophy of the parotid and submandibular glands. Consolidation is seen within the right lung, further detailed on the concurrently performed chest CT. CT/CT cervical spine wo IV con IMPRESSION: 1. No significant narrowing of the spinal canal. Mild to moderate neural foraminal stenosis seen at C5-C6. Severe right-sided facet arthropathy at C3-C4, new from prior. 2. Incidentally noted amorphous soft tissue thickening along the bilateral carotid sheaths, of uncertain etiology but presumably related to prior treatment. No evidence of acute inflammation within the neck. Thickening of the supraglottic structures also likely represent treatment-related change. Correlation with prior history of neck treatment is recommended.
--- NOTE | ~2022-07-09 | FL_ITS ---
EXAMINATION: XR BARIUM SWALLOW CLINICAL INFORMATION: Dysphasia. COMPARISON: 11/18/2013. TECHNIQUE: Modified barium swallow with speech pathologist. FINDINGS: During the study the epiglottis did not appear to invert. There was laryngeal penetration with tracheal aspiration on all consistencies from thin liquid to thick liquid and applesauce. There was minimal cough reflex present. FLUOROSCOPY TIME: 7 minutes. DOSE AREA PRODUCT: 4.525 Gy-cm2 (figueroa-centimeter squared) DLP: 39.418 mGy-cm FL/FL barium swallow modified IMPRESSION: Laryngeal penetration and tracheal aspiration with all consistencies ingested.
--- NOTE | 2022-07-09 20:00 | ECG_ITS ---
Test Reason : CHEST PAIN Blood Pressure : / mmHG Vent. Rate : 081 BPM Atrial Rate : 081 BPM P-R Int : 136 ms QRS Dur : 070 ms QT Int : 366 ms P-R-T Axes : 070 020 069 degrees QTc Int : 425 ms Normal sinus rhythm Normal ECG When compared with ECG of 23-MAR-2022 15:15, No significant change was found Referred By: Kizzy Armstrong Electronically Signed By:MINA DEAN MD
[2022-07-09 20:07] VITALS: BP 106/69; BP 124/60; PULSE 80; PULSE 85; RESP 18; O2SAT 100; BMI 20.3
[2022-07-09 20:09] VITALS: BP 124/60; PULSE 80; RESP 18; O2SAT 100
--- NOTE | 2022-07-09 20:10 | ED_ITS ---
HPI - Chest Pain General Chief Complaint: Chest Pain Stated Complaint: CP Time Seen by Provider: 07/09/22 19:58 Source: patient Mode of arrival: EMS History of Present Illness HPI narrative: 71-year-old male who presents with 10/10 chest pressure and shortness of breath for the past 3 days, patient states that the chest pain gets worse with deep inspiration and he denies any associated diaphoresis, nausea or radiation. Patient then endorses that he has had prior issues with GI bleeds and states that he does have known low blood pressure. He denies any fever chills and denies any urinary symptoms. Patient denies any hematemesis, hematochezia, melena and denies any abdominal pain. Related Data Home Medications Medication Instructions Recorded Confirmed cyanocobalamin (vitamin B-12) 1 tab PO DAILY 06/21/20 06/27/22 1,000 mcg tablet (Vitamin B-12) nitroglycerin 0.4 mg sublingual 1 tab sublingual NEEDED PRN 06/21/20 06/27/22 tablet Chest Pain umeclidinium 62.5 mcg-vilanterol 1 inh inhalation DAILY 06/21/20 06/27/22 25 mcg/actuation powdr for inhalation (Anoro Ellipta) fluticasone propionate 110 2 inh inhalation BID 09/28/20 06/27/22 mcg/actuation HFA aerosol inhaler artifi.tears(hypromellose)(PF) 0.3 1 drp ophthalmic (eye) BID PRN Dry 03/04/21 06/27/22 % eye drops Eyes gabapentin 400 mg capsule 1 cap PO TID 03/04/21 06/27/22 levothyroxine 75 mcg tablet 1 tab PO DAILY 03/04/21 06/27/22 acetaminophen 500 mg tablet 500 mg PO TID PRN headache 05/14/21 06/27/22 atorvastatin 80 mg tablet 80 mg PO BEDTIME 06/04/21 06/27/22 duloxetine 30 mg capsule,delayed 30 mg PO DAILY 10/21/21 06/27/22 release (Cymbalta) duloxetine 60 mg capsule,delayed 60 mg PO DAILY 10/21/21 06/27/22 release (Cymbalta) naloxone 4 mg/actuation nasal 4 mg intranasal Q2M PRN Opioid 10/21/21 06/27/22 spray (Narcan) Overdose albuterol sulfate 90 mcg/actuation 2 puff PO Q4H PRN for dyspnea 03/18/22 06/27/22 aerosol inhaler fluticasone propionate 50 1 spray intranasal DAILY 03/18/22 06/27/22 mcg/actuation nasal spray,suspension folic acid 1 mg tablet 1 mg PO DAILY 03/18/22 06/27/22 levocetirizine 5 mg tablet 5 mg PO DAILY 03/18/22 06/27/22 omeprazole 40 mg capsule,delayed 40 mg PO DAILY 03/18/22 06/27/22 release ferrous sulfate 325 mg (65 mg 1 tab PO DAILY 04/07/22 06/27/22 iron) tablet (FeroSul) Previous Rx's Medication Instructions Recorded sodium chloride 0.65 % nasal spray 1 spray intranasal BID PRN dry 05/14/21 aerosol ([place] Nasal) nasal passages #60 mL tizanidine 4 mg tablet 4 mg PO BEDTIME #30 tabs 03/19/22 tramadol 50 mg tablet 50 mg PO TID PRN Pain #15 tabs 03/19/22 Allergies Allergy/AdvReac Type Severity Reaction Status Date / Time Penicillins Allergy Rash Verified 06/27/22 09:11 aspirin [ASA] AdvReac Intermediate GI BLEED, Verified 06/27/22 09:11 Headaches Review of Systems Review of Systems: Pertinent positives and negatives as stated in HPI 10 point review of systems is otherwise negative. [facility] Past Medical History Source: nursing notes reviewed Medical History Anemia Aortic aneurysm Arthritis Back pain Cancer COPD (chronic obstructive pulmonary disease) COVID-19 Depression Difficulty swallowing Elevated cholesterol Esophageal stricture GERD (gastroesophageal reflux disease) History of chemotherapy History of epistaxis HTN (hypertension) Hx of radiation therapy Osteoarthritis of left shoulder Post laminectomy syndrome Pulmonary nodule Thyroid disease Surgical History H/O colonoscopy History of back surgery History of esophagogastroduodenoscopy (EGD) History of nasal surgery History of transurethral resection of prostate Family History Family History Father Brain cancer Mother CVD (cardiovascular disease) Maternal Aunt Diabetes Social History Social History Household Members: Spouse and Children Household Members Other:: 3 Housing: Apartment Do you presently have visiting nurse or other home services: Yes (unsure company name) Alcohol intake: never Patient Tobacco Use Status: Never used Tobacco Tobacco use type: Cigarette Cigarette Packs Per Day: 3 Cigarettes Per Day: 60.0 Years Smoked: 25 e-Cigarette/Vaping Use: Never Used Second Hand Smoke Exposure: No Use of substances other than those prescribed or required for medical reasons: No Advance Directives: Yes Advance Directives on File: Yes Advance Directives Date on File: 03/04/21 service: No Current occupational status: disabled Physical Exam Vital Signs: Vital Signs: Last Vital Signs Temp 97.9 F 07/09/22 22:08 Pulse 88 07/09/22 22:08 Resp 21 H 07/09/22 22:08 BP 131/66 07/09/22 22:08 Pulse Ox 99 07/09/22 22:08 O2 Del Method 07/09/22 22:08 BMI result Body Mass Index 20.3 VITAL SIGNS: Reviewed. GENERAL: Elderly, chronically ill, cachectic in mild distress. HEAD: Normocephalic/atraumatic EYES: PERRLA, EOMI EARS: Ext canals without abnormality OROPHARYNX: no oral lesions noted, posterior pharynx clear LUNGS: Normal breath sounds, no wheeze/rhonchi/rales appreciated, mild tachypnea SpO2<100> CARDIOVASCULAR: Regular rate and rhythm without noted murmurs, no JVD or lower extremity edema. ABDOMEN: Soft, non-tender, non-distended with bowel sounds. MUSCULOSKELETAL: No tenderness, deformities, or effusions noted on gross inspection. EXTREMITIES: No cyanosis, clubbing or edema. SKIN: Inspection of the skin reveals no rashes NEUROLOGIC: Alert and oriented x 4. Strength and sensation to light touch were grossly intact x 4. Course Course Course Narrative: 71-year-old male with history and clinical presentation and will rule out COPD, CHF, pneumonia, cardiac ischemia. Review of all investigations shows severe anemia, this is likely contributing to the shortness of breath as well as chest pain and will proceed with type and screen and transfusion. Will need to do fecal occult blood testing. Patient informed of results and will receive 1 unit of RBCs. Patient stool guaiac was positive despite no history of melena/hematochezia/hematemesis and I discussed case with the inpatient hospitalist as patient is severely anemic. She has agreed for admission. MDM - Chest Pain Lab Data Result diagrams: 07/09/22 20:49 07/09/22 20:49 Labs: Lab Results 07/09/22 07/09/22 07/09/22 Range/Units 20:39 20:49 20:49 WBC 7.3 (4.8-10.8) X10*3/uL RBC 2.14 L D (4.60-5.80) X10*6/uL Hgb 6.5 L* D (14.0-18.0) g/dl Hct 20.2 L* (42.0-52.0) % MCV 94.4 (80.0-98.0) fL MCH 30.4 (27.0-33.0) pg MCHC 32.2 (31.0-36.0) g/dl RDW 15.9 (11.0-16.0) % Plt Count 453 H (160-400) X10*3/uL MPV 9.6 (9.4-12.4) fL Immature Gran % (Auto) 0.8 H (0.0-0.4) % Neut % (Auto) 77.9 H (45-73) % Lymph % (Auto) 8.7 L (20-40) % [place] % (Auto) 10.9 (2-11) % Eos % (Auto) 1.2 (0-4) % Baso % (Auto) 0.5 (0-2) % Lymph # (Auto) 0.6 L (1.2-4.9) X10*3/uL [place] # (Auto) 0.8 (0.1-1.2) X10*3/uL Eos # (Auto) 0.1 (0.0-0.4) X10*3/uL Baso # (Auto) 0.0 (0.0-0.2) X10*3/uL Abs Immat Gran (auto) 0.06 H (0.00-0.03) X10*3/uL Absolute Neuts (auto) 5.7 (2.0-8.3) x10*3/uL Absolute Nucleated RBC 0.000 (0.0-0.012) X10*3/uL Nucleated RBC % (auto) 0.0 (0.0-0.2) /100WBC PT 13.9 H (10.0-13.1) SEC INR 1.2 H (0.9-1.1) VBG pH (7.32-7.43) VBG pCO2 mmHg VBG pO2 mmHg VBG HCO3 (22-26) mmol/L VBG O2 Saturation % VBG Base Excess mmol/L Sodium (135-145) mmol/L Potassium (3.3-5.1) mmol/L Chloride (96-108) mmol/L Carbon Dioxide (22-29) mmol/L Anion Gap (12-20) BUN (9-16) mg/dL Creatinine (0.5-1.4) mg/dL Estim Creat Clear Calc Estimated GFR Random Glucose (60-115) mg/dL Calcium (8.4-10.2) mg/dL Total Bilirubin (0.0-1.0) mg/dL AST (5-37) U/L ALT (0-40) U/L Alkaline Phosphatase (39-117) U/L Troponin I High Sens (<3.5-35.0) ng/L Total Protein (6.5-8.0) g/dL Albumin (3.5-5.0) g/dL Stool Occult Blood (NEGATIVE) COVID-19 (VIC) Negative (Negative) COVID-19 Clin Com See Note Blood Type Antibody Screen Crossmatch 07/09/22 07/09/22 07/09/22 Range/Units 20:49 20:49 20:55 WBC (4.8-10.8) X10*3/uL RBC (4.60-5.80) X10*6/uL Hgb (14.0-18.0) g/dl Hct (42.0-52.0) % MCV (80.0-98.0) fL MCH (27.0-33.0) pg MCHC (31.0-36.0) g/dl RDW (11.0-16.0) % Plt Count (160-400) X10*3/uL MPV (9.4-12.4) fL Immature Gran % (Auto) (0.0-0.4) % Neut % (Auto) (45-73) % Lymph % (Auto) (20-40) % [place] % (Auto) (2-11) % Eos % (Auto) (0-4) % Baso % (Auto) (0-2) % Lymph # (Auto) (1.2-4.9) X10*3/uL [place] # (Auto) (0.1-1.2) X10*3/uL Eos # (Auto) (0.0-0.4) X10*3/uL Baso # (Auto) (0.0-0.2) X10*3/uL Abs Immat Gran (auto) (0.00-0.03) X10*3/uL Absolute Neuts (auto) (2.0-8.3) x10*3/uL Absolute Nucleated RBC (0.0-0.012) X10*3/uL Nucleated RBC % (auto) (0.0-0.2) /100WBC PT (10.0-13.1) SEC INR (0.9-1.1) VBG pH 7.43 (7.32-7.43) VBG pCO2 42 mmHg VBG pO2 36 mmHg VBG HCO3 28 H (22-26) mmol/L VBG O2 Saturation 49.0 % VBG Base Excess 4.0 mmol/L Sodium 139 (135-145) mmol/L Potassium 4.4 (3.3-5.1) mmol/L Chloride 100 (96-108) mmol/L Carbon Dioxide 26 (22-29) mmol/L Anion Gap 17 (12-20) BUN 19 H (9-16) mg/dL Creatinine 0.78 (0.5-1.4) mg/dL Estim Creat Clear Calc 72.4 Estimated GFR > 60 Random Glucose 97 (60-115) mg/dL Calcium 9.4 (8.4-10.2) mg/dL Total Bilirubin < 0.2 (0.0-1.0) mg/dL AST 25 (5-37) U/L ALT 28 (0-40) U/L Alkaline Phosphatase 94 D (39-117) U/L Troponin I High Sens 3.5 D (<3.5-35.0) ng/L Total Protein 7.6 (6.5-8.0) g/dL Albumin 3.8 (3.5-5.0) g/dL Stool Occult Blood (NEGATIVE) COVID-19 (VIC) (Negative) COVID-19 Clin [facility] Blood Type Antibody Screen Crossmatch 07/09/22 07/09/22 Range/Units 21:34 21:57 WBC (4.8-10.8) X10*3/uL RBC (4.60-5.80) X10*6/uL Hgb (14.0-18.0) g/dl Hct (42.0-52.0) % MCV (80.0-98.0) fL MCH (27.0-33.0) pg MCHC (31.0-36.0) g/dl RDW (11.0-16.0) % Plt Count (160-400) X10*3/uL MPV (9.4-12.4) fL Immature Gran % (Auto) (0.0-0.4) % Neut % (Auto) (45-73) % Lymph % (Auto) (20-40) % [place] % (Auto) (2-11) % Eos % (Auto) (0-4) % Baso % (Auto) (0-2) % Lymph # (Auto) (1.2-4.9) X10*3/uL [place] # (Auto) (0.1-1.2) X10*3/uL Eos # (Auto) (0.0-0.4) X10*3/uL Baso # (Auto) (0.0-0.2) X10*3/uL Abs Immat Gran (auto) (0.00-0.03) X10*3/uL Absolute Neuts (auto) (2.0-8.3) x10*3/uL Absolute Nucleated RBC (0.0-0.012) X10*3/uL Nucleated RBC % (auto) (0.0-0.2) /100WBC PT (10.0-13.1) SEC INR (0.9-1.1) VBG pH (7.32-7.43) VBG pCO2 mmHg VBG pO2 mmHg VBG HCO3 (22-26) mmol/L VBG O2 Saturation % VBG Base Excess mmol/L Sodium (135-145) mmol/L Potassium (3.3-5.1) mmol/L Chloride (96-108) mmol/L Carbon Dioxide (22-29) mmol/L Anion Gap (12-20) BUN (9-16) mg/dL Creatinine (0.5-1.4) mg/dL Estim Creat Clear Calc Estimated GFR Random Glucose (60-115) mg/dL Calcium (8.4-10.2) mg/dL Total Bilirubin (0.0-1.0) mg/dL AST (5-37) U/L ALT (0-40) U/L Alkaline Phosphatase (39-117) U/L Troponin I High Sens (<3.5-35.0) ng/L Total Protein (6.5-8.0) g/dL Albumin (3.5-5.0) g/dL Stool Occult Blood POSITIVE (NEGATIVE) COVID-19 (VIC) (Negative) COVID-19 Clin Com Blood Type O Positive Antibody Screen NEGATIVE Crossmatch See Detail ECG Data ECG #1: Attestation: I personally reviewed and interpreted this ECG as follows: Prior ECG tracings: available for review Interpretation: Sinus rhythm, HR-81, no STEMI, IL/QRS/QTC are within normal limits. Critical Care Time Critical Care Time Critical Care Time: Yes Total Critical Care Time: 30 Attestation: I personally attest to this time spent taking care of the patient. Discharge Plan Discharge Clinical Impression: Normocytic anemia, Chest pain, Dyspnea Patient Disposition: Admitted As Inpatient Prescriptions: No Action gabapentin 400 mg capsule 1 cap PO TID levothyroxine 75 mcg tablet 1 tab PO DAILY artifi.tears(hypromellose)(PF) 0.3 % Drops 1 drp OPHTHALMIC (EYE) BID PRN (Reason: Dry Eyes) cyanocobalamin (vitamin B-12) [Vitamin B-12] 1,000 mcg tablet 1 tab PO DAILY nitroglycerin 0.4 mg tablet, sublingual 1 tab sublingual NEEDED PRN (Reason: Chest Pain) Anoro Ellipta 62.5-25 mcg/actuation Blister With Device 1 inh INHALATION DAILY atorvastatin 80 mg tablet 80 mg PO BEDTIME albuterol sulfate 90 mcg/actuation HFA aerosol inhaler 2 puff PO Q4H PRN (Reason: for dyspnea) folic acid 1 mg Tablet 1 mg PO DAILY fluticasone propionate 50 mcg/actuation spray,suspension 1 spray intranasal DAILY Rx Instructions: administer into each nostril omeprazole 40 mg Capsule,Delayed Release(Dr/Ec) 40 mg PO DAILY levocetirizine 5 mg Tablet 5 mg PO DAILY tizanidine 4 mg tablet 4 mg PO BEDTIME Qty: 30 0RF tramadol 50 mg tablet 50 mg PO TID PRN (Reason: Pain) Qty: 15 0RF ferrous sulfate [FeroSul] 325 mg (65 mg iron) tablet 1 tab PO DAILY acetaminophen 500 mg tablet 500 mg PO TID PRN (Reason: headache) sodium chloride [[place] Nasal] 0.65 % aerosol,spray 1 spray intranasal BID PRN (Reason: dry nasal passages) Qty: 60 0RF fluticasone propionate 110 mcg/actuation HFA aerosol inhaler 2 inh inhalation BID duloxetine [Cymbalta] 30 mg capsule,delayed release(DR/EC) 30 mg PO DAILY Rx Instructions: TAKES TOGETHER WITH 60 MG CAPSULE duloxetine [Cymbalta] 60 mg capsule,delayed release(DR/EC) 60 mg PO DAILY Rx Instructions: TAKES TOGETHER WITH 30 MG CAPSULE naloxone [Narcan] 4 mg/actuation spray,non-aerosol 4 mg intranasal Q2M PRN (Reason: Opioid Overdose) Rx Instructions: spray 1 dose into ONE nostril; alternate nostrils w each dose until help arrives
[2022-07-09 20:55] LABS: MANUAL DIFF FLAG NO
[2022-07-09 20:57] LABS: Basophils Percent Auto 0.5 % (0-2); Eosinophils Absolute Auto 0.1 X10*3/uL (0.0-0.4); Eosinophils Percent Auto 1.2 % (0-4); Imm Gran Abs Auto 0.06 X10*3/uL (0.00-0.03); Imm Gran Pct Auto 0.8 % (0.0-0.4); Lymphocytes Absolute Auto 0.6 X10*3/uL (1.2-4.9); Lymphocytes Percent Auto 8.7 % (20-40); Mean Corpuscular HGB Conc 32.2 g/dl (31.0-36.0); Mean Corpuscular Hemoglobin 30.4 pg (27.0-33.0); Mean Corpuscular Volume 94.4 fL (80.0-98.0); Mean Platelet Volume 9.6 fL (9.4-12.4); Monocytes Absolute Auto 0.8 X10*3/uL (0.1-1.2); Monocytes Percent Auto 10.9 % (2-11); Neutrophils Absolute Auto 5.7 x10*3/uL (2.0-8.3); Neutrophils Percent Auto 77.9 % (45-73); Platelet Count 453 X10*3/uL (160-400); Red Blood Count 2.14 X10*6/uL (4.60-5.80); Red Cell Distribution Width 15.9 % (11.0-16.0); White Blood Count 7.3 X10*3/uL (4.8-10.8)
[2022-07-09 20:59] LABS: Venous Blood Gas Refer to POC result
[2022-07-09 21:00] LABS: VBG HCO3 28 mmol/L (22-26); VBG pCO2 42 mmHg; VBG pH 7.43 (7.32-7.43); VBG pO2 36 mmHg
[2022-07-09 21:04] LABS: Hematocrit 20.2 % (42.0-52.0)
[2022-07-09 21:07] LABS: Hemoglobin 6.5 g/dl (14.0-18.0)
[2022-07-09 21:10] LABS: COVID-19 Test Negative (Negative)
[2022-07-09 21:10] LABS: INTERNATIONAL NORM RATIO 1.2 (0.9-1.1); Prothrombin Time 13.9 SEC (10.0-13.1)
[2022-07-09 21:19] LABS: Alanine Aminotransferase 28 U/L (0-40); Albumin Level 3.8 g/dL (3.5-5.0); Alkaline Phosphatase 94 U/L (39-117); Anion Gap 17 (12-20); Aspartate Amino Transferase 25 U/L (5-37); Bilirubin Total < 0.2 mg/dL (0.0-1.0); Blood Urea Nitrogen 19 mg/dL (9-16); Calcium 9.4 mg/dL (8.4-10.2); Carbon Dioxide 26 mmol/L (22-29); Chloride 100 mmol/L (96-108); Creatinine Clr Calc Pharmacy 72.4; Estimated Glomerular Filt Rate > 60; Glucose Random 97 mg/dL (60-115); Potassium 4.4 mmol/L (3.3-5.1); Sodium 139 mmol/L (135-145); Total Protein 7.6 g/dL (6.5-8.0)
[2022-07-09 21:24] LABS: Troponin-I High Sensitivity 3.5 ng/L (<3.5-35.0)
[2022-07-09 22:06] LABS: OBS Int Ctl Valid YES; OBS1 POSITIVE (NEGATIVE)
[2022-07-09 22:08] VITALS: BP 131/66; PULSE 88; RESP 21; TEMP 36.6; O2SAT 99
[2022-07-09 23:21] VITALS: BP 135/68; PULSE 92; PULSE 93; RESP 13; TEMP 36.5; O2SAT 100
--- NOTE | 2022-07-09 23:23 | P.HPHOSP_ITS ---
History of Present Illness Date of Service: 07/09/22 Chief Complaint: Chest pain 71-year-old male with past medical history of throat cancer in 2002, COPD, depression, hyperlipidemia, esophageal strictures, GERD, HTN, history of radiation therapy of the throat, hypothyroidism, presents to the hospital with complaints of chest pain, weakness and dizziness started on day of presentation. Patient reports that the chest pain is midsternal, worse with deep inspiration, radiating to his arms bilaterally, to his shoulders, as well as to his neck and head. Patient reports that he has been feeling weak, has had dizziness, and has difficulty ambulating due to the mentioned. He is complaining of a cough, some sputum production of yellow color. Reports dyspnea on exertion. He denies having any fever or chills, no palpitations, no abdominal pain nausea or vomiting, no diarrhea constipation, no urinary symptoms and no lower extremity edema. Denies any orthopnea or PND. He denies any melena or bright red blood per rectum. On arrival to the ED patient hemodynamically stable with slightly elevated blood pressure Labs are significant for hemoglobin of 6.5 with hematocrit 20.2 with a baseline from the 03 of July of 8.2 and 25.2, INR of 1.2, stool occult blood positive, troponin negative Patient being transfused PRBC and will be admitted for further management Chest CT shows dense region of the opacity in the right upper lobe with additional heterogeneous consolidation is in superior right lower lobe Review of Systems Review of Systems: Yes all other systems are reviewed and are negative [facility] Medical History Anemia Aortic aneurysm Arthritis Back pain Cancer COPD (chronic obstructive pulmonary disease) COVID-19 Depression Difficulty swallowing Elevated cholesterol Esophageal stricture GERD (gastroesophageal reflux disease) History of chemotherapy History of epistaxis HTN (hypertension) Hx of radiation therapy Osteoarthritis of left shoulder Post laminectomy syndrome Pulmonary nodule Thyroid disease Family History Father Brain cancer Mother CVD (cardiovascular disease) Maternal Aunt Diabetes Surgical History H/O colonoscopy History of back surgery History of esophagogastroduodenoscopy (EGD) History of nasal surgery History of transurethral resection of prostate Social History Household Members: Spouse and Children Household Members Other:: 3 Housing: Apartment Do you presently have visiting nurse or other home services: Yes (unsure company name) Alcohol intake: never Patient Tobacco Use Status: Never used Tobacco Tobacco use type: Cigarette Cigarette Packs Per Day: 3 Cigarettes Per Day: 60.0 Years Smoked: 25 e-Cigarette/Vaping Use: Never Used Second Hand Smoke Exposure: No Use of substances other than those prescribed or required for medical reasons: No Advance Directives: Yes Advance Directives on File: Yes Advance Directives Date on File: 03/04/21 service: No Current occupational status: disabled Meds Allergies Allergy/AdvReac Type Severity Reaction Status Date / Time Penicillins Allergy Rash Verified 06/27/22 09:11 aspirin [ASA] AdvReac Intermediate GI BLEED, Verified 06/27/22 09:11 Headaches Home Medications Medication Instructions Recorded Confirmed Last Taken Type cyanocobalamin (vitamin B-12) 1 tab PO DAILY 06/21/20 06/27/22 03/17/22 History 1,000 mcg tablet (Vitamin B-12) nitroglycerin 0.4 mg sublingual 1 tab sublingual NEEDED PRN 06/21/20 06/27/22 09/22/21 History tablet Chest Pain umeclidinium 62.5 mcg-vilanterol 1 inh inhalation DAILY 06/21/20 06/27/22 03/17/22 History 25 mcg/actuation powdr for inhalation (Anoro Ellipta) fluticasone propionate 110 2 inh inhalation BID 09/28/20 06/27/22 03/17/22 History mcg/actuation HFA aerosol inhaler artifi.tears(hypromellose)(PF) 0.3 1 drp ophthalmic (eye) BID PRN Dry 03/04/21 06/27/22 09/22/21 History % eye drops Eyes gabapentin 400 mg capsule 1 cap PO TID 03/04/21 06/27/22 03/17/22 History levothyroxine 75 mcg tablet 1 tab PO DAILY 03/04/21 06/27/22 03/17/22 History acetaminophen 500 mg tablet 500 mg PO TID PRN headache 05/14/21 06/27/22 09/22/21 History atorvastatin 80 mg tablet 80 mg PO BEDTIME 06/04/21 06/27/22 03/17/22 History duloxetine 30 mg capsule,delayed 30 mg PO DAILY 10/21/21 06/27/22 03/17/22 History release (Cymbalta) duloxetine 60 mg capsule,delayed 60 mg PO DAILY 10/21/21 06/27/22 03/17/22 History release (Cymbalta) naloxone 4 mg/actuation nasal 4 mg intranasal Q2M PRN Opioid 10/21/21 06/27/22 Unknown History spray (Narcan) Overdose albuterol sulfate 90 mcg/actuation 2 puff PO Q4H PRN for dyspnea 03/18/22 06/27/22 Unknown History aerosol inhaler fluticasone propionate 50 1 spray intranasal DAILY 03/18/22 06/27/22 03/17/22 History mcg/actuation nasal spray,suspension folic acid 1 mg tablet 1 mg PO DAILY 03/18/22 06/27/22 03/17/22 History levocetirizine 5 mg tablet 5 mg PO DAILY 03/18/22 06/27/22 03/17/22 History omeprazole 40 mg capsule,delayed 40 mg PO DAILY 03/18/22 06/27/22 03/17/22 History release ferrous sulfate 325 mg (65 mg 1 tab PO DAILY 04/07/22 06/27/22 03/17/22 History iron) tablet (FeroSul) Physical Exam Vital Signs and Narrative: Vital Signs: Last Vital Signs Temp 97.7 F 07/09/22 23:21 Pulse 92 07/09/22 23:21 Resp 13 07/09/22 23:21 BP 135/68 07/09/22 23:21 Pulse Ox 99 07/09/22 22:08 O2 Del Method 07/09/22 22:08 BMI result Body Mass Index 20.3 Const: Other: Appears cachectic General: cooperative and no acute distress Orientation/consciousness: patient oriented x3 HEENT: Other: Edentulous Eyes: General: appearance normal, both eyes and all related structures Pupils: Equal, round and reactive pupils present Resp: Effort & Inspection: normal respiratory effort Auscultation: clear to auscultation bilaterally Cardio: Rate: regular rate Rhythm: regular rhythm GI: Palpation (GI): Soft to palpation Auscultation: normal bowel sounds Skin: General skin exam: no rashes or lesions noted Neuro: General: patient oriented x3 Cranial nerves: Yes Equal, round and reactive pupils present Cognition (Neuro): normal cognition Extrem: General: Yes normal to inspection and Yes no pedal edema Results Labs CBC and Chem 7: 07/09/22 20:49 07/09/22 20:49 Labs: Laboratory Results - last 24 hr 07/09/22 07/09/22 07/09/22 20:39 20:49 20:49 MCV 94.4 MCH 30.4 MCHC 32.2 RDW 15.9 Plt Count 453 H MPV 9.6 Immature Gran % (Auto) 0.8 H Neut % (Auto) 77.9 H Lymph % (Auto) 8.7 L [place] % (Auto) 10.9 Eos % (Auto) 1.2 Baso % (Auto) 0.5 Lymph # (Auto) 0.6 L [place] # (Auto) 0.8 Eos # (Auto) 0.1 Baso # (Auto) 0.0 Abs Immat Gran (auto) 0.06 H Absolute Neuts (auto) 5.7 Absolute Nucleated RBC 0.000 Nucleated RBC % (auto) 0.0 PT 13.9 H INR 1.2 H VBG pH VBG pCO2 VBG pO2 VBG HCO3 VBG O2 Saturation VBG Base Excess Anion Gap Estim Creat Clear Calc Estimated GFR Random Glucose Calcium Total Bilirubin AST ALT Alkaline Phosphatase Troponin I High Sens Total Protein Albumin Stool Occult Blood COVID-19 (VIC) Negative COVID-19 Clin Com See Note Blood Type Antibody Screen Crossmatch 07/09/22 07/09/22 07/09/22 20:49 20:49 20:55 MCV MCH MCHC RDW Plt Count MPV Immature Gran % (Auto) Neut % (Auto) Lymph % (Auto) [place] % (Auto) Eos % (Auto) Baso % (Auto) Lymph # (Auto) [place] # (Auto) Eos # (Auto) Baso # (Auto) Abs Immat Gran (auto) Absolute Neuts (auto) Absolute Nucleated RBC Nucleated RBC % (auto) PT INR VBG pH 7.43 VBG pCO2 42 VBG pO2 36 VBG HCO3 28 H VBG O2 Saturation 49.0 VBG Base Excess 4.0 Anion Gap 17 Estim Creat Clear Calc 72.4 Estimated GFR > 60 Random Glucose 97 Calcium 9.4 Total Bilirubin < 0.2 AST 25 ALT 28 Alkaline Phosphatase 94 D Troponin I High Sens 3.5 D Total Protein 7.6 Albumin 3.8 Stool Occult Blood COVID-19 (VIC) COVID-19 [facility] Com Blood Type Antibody Screen Crossmatch 07/09/22 07/09/22 21:34 21:57 MCV MCH MCHC RDW Plt Count MPV Immature Gran % (Auto) Neut % (Auto) Lymph % (Auto) [place] % (Auto) Eos % (Auto) Baso % (Auto) Lymph # (Auto) [place] # (Auto) Eos # (Auto) Baso # (Auto) Abs Immat Gran (auto) Absolute Neuts (auto) Absolute Nucleated RBC Nucleated RBC % (auto) PT INR VBG pH VBG pCO2 VBG pO2 VBG HCO3 VBG O2 Saturation VBG Base Excess Anion Gap Estim Creat Clear Calc Estimated GFR Random Glucose Calcium Total Bilirubin AST ALT Alkaline Phosphatase Troponin I High Sens Total Protein Albumin Stool Occult Blood POSITIVE COVID-19 (VIC) COVID-19 [facility] Com Blood Type O Positive Antibody Screen NEGATIVE Crossmatch See Detail Imaging Radiologist's Impressions: Impressions Chest X-Ray 07/09/22 20:20 IMPRESSION: 1. Increased attenuation in the lateral right lung apex, which may be artifactual as opposed to true airspace opacity. Consider a repeat chest x-ray and lateral view. 2. No definite acute pulmonary process. Assessment and Plan (1) Normocytic anemia: Status: Acute (2) Chest pain: Qualifiers: Chest pain type: chest pain on breathing Qualified Code(s): R07.1 - Chest pain on breathing Status: Acute (3) Dyspnea: Qualifiers: Dyspnea type: dyspnea on exertion Qualified Code(s): R06.09 - Other forms of dyspnea Status: Acute (4) Community acquired pneumonia: Status: Acute (5) Aspiration into airway: Status: Acute Plan 71-year-old male with previous medical history of anemia, history of throat cancer status post radiation therapy and esophageal stricture presents the hospital with complaints of dizziness, chest pain found to have acute anemia # acute on chronic anemia - normocytic - symptomatic - stool occult positive although patient denies melena or hematochezia, hemoptysis or hematemesis - patient will be transfused 1 unit of PRBC - follow H&H - given positive stool occult will consult GI for further evaluation - keep NPO # chest pain - pleuritic - likely related to pneumonia - troponin negative - EKG shows some abnormality in V2 to V4 which were present on previous EKG, no current evidence of ACS - if patient continues to have any chest pain, and or associated with shortness of breath, consider CT angiogram # community-acquired pneumonia - has evidence of infiltrate on chest CT, - has a cough, sputum production - no leukocytosis, afebrile - will treat with IV antibiotics - follow blood cultures # concern for aspiration - has evidence of aspiration on chest CT - will make NPO - consult speech for swallow eval # abnormal chest CT - likely pneumonia but given his history of cancer, patient will require an outpatient follow-up to rule out malignancy DVT prophylaxis: SCDs in the setting of acute anemia and positive stool Given the multiple acute abnormalities including symptomatic anemia requiring blood transfusion, as well as and pneumonia, and evaluation of chest pain patient required minimum 2 night inpatient hospital stay for further management and evaluation Quality Stroke Does the patient have a stroke diagnosis?: No VTE Prior VTE?: No VTE Risk Level:: Medical - moderate - high VTE Device Contraindication: Treatment Not Indicated VTE Drug Contraindication: N/A - Med Ordered
[2022-07-09 23:36] VITALS: BP 145/75; PULSE 92; RESP 13; TEMP 36.7
[2022-07-10] VITALS (10 sets, daily range): BP systolic 125–172; BP diastolic 63–82; PULSE 88–101; RESP 12–18; TEMP 36.7–37.2; O2SAT 96–100
--- NOTE | 2022-07-10 00:43 | PC.NURSE ---
Report given to Nhan CUBA
[2022-07-10 06:56] LABS: MANUAL DIFF FLAG NO
[2022-07-10 06:58] LABS: Basophils Percent Auto 0.5 % (0-2); Eosinophils Absolute Auto 0.1 X10*3/uL (0.0-0.4); Eosinophils Percent Auto 0.9 % (0-4); Hematocrit 26.8 % (42.0-52.0); Imm Gran Abs Auto 0.08 X10*3/uL (0.00-0.03); Lymphocytes Absolute Auto 0.4 X10*3/uL (1.2-4.9); Lymphocytes Percent Auto 5.4 % (20-40); Mean Corpuscular HGB Conc 33.6 g/dl (31.0-36.0); Mean Corpuscular Hemoglobin 30.1 pg (27.0-33.0); Mean Corpuscular Volume 89.6 fL (80.0-98.0); Mean Platelet Volume 10.1 fL (9.4-12.4); Monocytes Absolute Auto 0.9 X10*3/uL (0.1-1.2); Monocytes Percent Auto 11.5 % (2-11); Neutrophils Absolute Auto 6.3 x10*3/uL (2.0-8.3); Neutrophils Percent Auto 80.7 % (45-73); Platelet Count 437 X10*3/uL (160-400); Red Blood Count 2.99 X10*6/uL (4.60-5.80); Red Cell Distribution Width 16.2 % (11.0-16.0); White Blood Count 7.8 X10*3/uL (4.8-10.8)
[2022-07-10 07:21] LABS: Anion Gap 17 (12-20); Blood Urea Nitrogen 14 mg/dL (9-16); Calcium 8.6 mg/dL (8.4-10.2); Carbon Dioxide 23 mmol/L (22-29); Chloride 105 mmol/L (96-108); Creatinine Clr Calc Pharmacy 86.9; Estimated Glomerular Filt Rate > 60; Glucose Random 92 mg/dL (60-115); Sodium 140 mmol/L (135-145)
[2022-07-10] MEDS: 0.9 % Sodium Chloride Flush 3 ML SYRINGE IVFLUSH ×2 (07:25→13:59)
[2022-07-10] MEDS: Pantoprazole Sodium 40 MG/10 ML VIAL IVPUSH (07:52)
[2022-07-10] MEDS: Ampicillin Sodium/Sulbactam Na 3 GM in 0.9 % Sodium Chloride 100 ML IV ×3 (07:57→20:42)
[2022-07-10 08:11] LABS: Lactic Acid 0.7 mmol/L (0.5-2.0)
--- NOTE | 2022-07-10 10:11 | PHA.MEDREC ---
Pharmacy Consult ? Medication Reconciliation Pharmacy has completed the medication reconciliation. Spoke to pt at bedside but he stated he did not know any of his medications but his daughter does; noted that he had a lot but only takes a few. Called daughter Meredith who listed current medications. Pt not taking a lot of maintenance meidcaitons, i.e. atorvastatin, cymbalta, losartan
[2022-07-10] MEDS: Morphine Sulfate 2 MG/ML CARTRIDGE 1 MG IVPUSH ×2 (10:31→17:15)
--- NOTE | 2022-07-10 11:40 | P.PNIM_ITS ---
Subjective Subjective Date of Service: 07/10/22 Interval History: No significant nursing events overnight. Patient status post PRBC transfusion since admission Constitutional Constitutional: Reports fatigue Respiratory Respiratory: Reports cough and Reports pain with cough Endocrine Endocrine: Reports fatigue Physical Exam Vital Signs: Vital Signs: Last Vital Signs Temp 98.1 F 07/10/22 06:43 Pulse 88 07/10/22 10:29 Resp 14 07/10/22 07:57 BP 138/76 07/10/22 10:29 Pulse Ox 99 07/10/22 07:57 O2 Del Method 07/10/22 07:57 BMI result Body Mass Index 20.3 Middle-aged male lying in bed in no distress Neck supple, no JVD Regular rate and rhythm, S1-S2 heard Regular breath sounds bilaterally, no wheezing or crackles appreciated Abdomen soft nontender, no guarding, no rigidity Patient is awake, alert and oriented to self, place, time and person ; no focal motor deficit Psych: Normal mood No pedal edema Objective Data Active Medications Acetaminophen (Acetaminophen 325 Mg Tablet) 650 mg PO Q6H PRN PRN Reason: Pain, Mild (Pain Scale 1-3) Docusate Sodium (Docusate Sodium 100 Mg Capsule) 100 mg PO DAILY PRN PRN Reason: Constipation Ampicillin Sodium/Sulbactam (Sodium 3 gm/ Sodium Chloride) 100 mls @ 200 mls/hr IV Q6H [facility] Last Infusion: 07/10/22 08:27 Dose: 0 mls/hr Documented By: JENNIFER Morphine Sulfate (Morphine Sulfate 2 Mg/Ml Cartridge) 1 mg IVPUSH Q4H PRN; Protocol PRN Reason: Pain, Severe (Pain Scale 7-10) Last Admin: 07/10/22 10:31 Dose: 1 mg Documented By: JENNIFER Ondansetron HCl (Ondansetron Hcl 4 Mg/2 Ml Vial) 4 mg IVPUSH Q8H PRN PRN Reason: Nausea and Vomiting Pantoprazole Sodium (Pantoprazole Sodium 40 Mg/10 Ml Vial) 40 mg IVPUSH DAILY@0630 [facility] Last Admin: 07/10/22 07:52 Dose: 40 mg Documented By: JENNIFER Sodium Chloride (0.9 % Sodium Chloride Flush 3 Ml Syringe) 3 ml IVFLUSH QSHIFT [facility] Last Admin: 07/10/22 07:25 Dose: 3 ml Documented By: JENNIFER Labs CBC & Chem 7: 07/10/22 05:59 07/10/22 05:59 Labs: Laboratory Results - last 24 hr 07/09/22 07/09/22 07/09/22 20:39 20:49 20:49 MCV 94.4 MCH 30.4 MCHC 32.2 RDW 15.9 Plt Count 453 H MPV 9.6 Immature Gran % (Auto) 0.8 H Neut % (Auto) 77.9 H Lymph % (Auto) 8.7 L [place] % (Auto) 10.9 Eos % (Auto) 1.2 Baso % (Auto) 0.5 Lymph # (Auto) 0.6 L [place] # (Auto) 0.8 Eos # (Auto) 0.1 Baso # (Auto) 0.0 Abs Immat Gran (auto) 0.06 H Absolute Neuts (auto) 5.7 Absolute Nucleated RBC 0.000 Nucleated RBC % (auto) 0.0 PT 13.9 H INR 1.2 H VBG pH VBG pCO2 VBG pO2 VBG HCO3 VBG O2 Saturation VBG Base Excess Anion Gap Estim Creat Clear Calc Estimated GFR Random Glucose Lactic Acid Calcium Total Bilirubin AST ALT Alkaline Phosphatase Troponin I High Sens Total Protein Albumin Stool Occult Blood COVID-19 (VIC) Negative COVID-19 Clin Com See Note Blood Type Antibody Screen Crossmatch 07/09/22 07/09/22 07/09/22 20:49 20:49 20:55 MCV MCH MCHC RDW Plt Count MPV Immature Gran % (Auto) Neut % (Auto) Lymph % (Auto) Republic % (Auto) Eos % (Auto) Baso % (Auto) Lymph # (Auto) Republic # (Auto) Eos # (Auto) Baso # (Auto) Abs Immat Gran (auto) Absolute Neuts (auto) Absolute Nucleated RBC Nucleated RBC % (auto) PT INR VBG pH 7.43 VBG pCO2 42 VBG pO2 36 VBG HCO3 28 H VBG O2 Saturation 49.0 VBG Base Excess 4.0 Anion Gap 17 Estim Creat Clear Calc 72.4 Estimated GFR > 60 Random Glucose 97 Lactic Acid Calcium 9.4 Total Bilirubin < 0.2 AST 25 ALT 28 Alkaline Phosphatase 94 D Troponin I High Sens 3.5 D Total Protein 7.6 Albumin 3.8 Stool Occult Blood COVID-19 (VIC) COVID-19 [employer] Com Blood Type Antibody Screen Crossmatch 07/09/22 07/09/22 07/10/22 21:34 21:57 05:59 MCV 89.6 MCH 30.1 MCHC 33.6 RDW 16.2 H Plt Count 437 H MPV 10.1 Immature Gran % (Auto) 1.0 H Neut % (Auto) 80.7 H Lymph % (Auto) 5.4 L Republic % (Auto) 11.5 H Eos % (Auto) 0.9 Baso % (Auto) 0.5 Lymph # (Auto) 0.4 L Republic # (Auto) 0.9 Eos # (Auto) 0.1 Baso # (Auto) 0.0 Abs Immat Gran (auto) 0.08 H Absolute Neuts (auto) 6.3 Absolute Nucleated RBC 0.000 Nucleated RBC % (auto) 0.0 PT INR VBG pH VBG pCO2 VBG pO2 VBG HCO3 VBG O2 Saturation VBG Base Excess Anion Gap Estim Creat Clear Calc Estimated GFR Random Glucose Lactic Acid Calcium Total Bilirubin AST ALT Alkaline Phosphatase Troponin I High Sens Total Protein Albumin Stool Occult Blood POSITIVE COVID-19 (VIC) COVID-[employer] Com Blood Type O Positive Antibody Screen NEGATIVE Crossmatch See Detail 07/10/22 07/10/22 05:59 07:33 MCV MCH MCHC RDW Plt Count MPV Immature Gran % (Auto) Neut % (Auto) Lymph % (Auto) Republic % (Auto) Eos % (Auto) Baso % (Auto) Lymph # (Auto) Republic # (Auto) Eos # (Auto) Baso # (Auto) Abs Immat Gran (auto) Absolute Neuts (auto) Absolute Nucleated RBC Nucleated RBC % (auto) PT INR VBG pH VBG pCO2 VBG pO2 VBG HCO3 VBG O2 Saturation VBG Base Excess Anion Gap 17 Estim Creat Clear Calc 86.9 Estimated GFR > 60 Random Glucose 92 Lactic Acid 0.7 Calcium 8.6 D Total Bilirubin AST ALT Alkaline Phosphatase Troponin I High Sens Total Protein Albumin Stool Occult Blood COVID-19 (VIC) COVID-19 [employer] Com Blood Type Antibody Screen Crossmatch Imaging Chest x-ray: Radiologist's impression: Impressions Chest X-Ray 07/09/22 20:20 IMPRESSION: 1. Increased attenuation in the lateral right lung apex, which may be artifactual as opposed to true airspace opacity. Consider a repeat chest x-ray and lateral view. 2. No definite acute pulmonary process. Chest CT 07/10/22 01:05 IMPRESSION: 1. Dense region of opacity in the right upper lobe with additional heterogeneous consolidation in the adjacent superior right lower lobe. Appearance is suspicious for pneumonia in the proper clinical setting, though malignancy would be difficult to exclude. Follow-up chest CT in 3 months is recommended to assess for resolution. 2. Semisolid material in the trachea, which could reflect aspiration. 3. Redemonstrated scattered irregularly shaped foci bilaterally, overall similar to 03/18/2022, though attention on follow-up is recommended. 4. Prominent ascending aorta measuring approximately 4.4 cm in diameter. 5. Small pericardial effusion. 6. Small hiatal hernia. Assessment and Plan (1) Community acquired pneumonia: Status: Acute (2) Aspiration into airway: Status: Acute (3) Acute anemia: Status: Acute (4) Lumbar radiculitis: Status: Acute Plan 71-year-old male with previous medical history of anemia, history of throat cancer status post radiation therapy and esophageal stricture presents the hospital with complaints of chest pain with cough found to have acute anemia. #. Community-acquired pneumonia with concern for aspiration -will change antibiotic to IV Unasyn. -Was evaluated by speech who recommend Puree diet with thin liquids, pills crushed in puree. Also recommend MBSS -currently npo as needs GI evaluation as below. Will change to above diet once no longer npo #. Acute symptomatic on chronic anemia -Stool occult positive in ER. -s/p PRBC transfusion. Follow H&H. GI eval pending #. Abnormal CT chest -Will need follow up imaging to rule out malignancy once acute infection resolves in this patient with history of cancer. #. Radiculopathy -Conintue po medications once no longer npo. Patient states it is worse than baseline, as patient is high risk with h/o cancer, will obtain CT neck #. Hypothyroidism -on synthroid DVT prophylaxis : SCDs Diet; npo until GI evaluation Full code Admit as inpatient and will require two night minimum hospital stay for treatment of pneumonia with IV antibiotics and close monitoring of hemoglobin. GI consult and CT neck pending Quality Stroke Does the patient have a stroke diagnosis?: No VTE Prior VTE?: No VTE Risk Level:: Medical - moderate - high VTE Device Contraindication: N/A - Device Ordered VTE Drug Contraindication: Treatment Not Indicated
--- NOTE | 2022-07-10 13:35 | MHC.CM.PN ---
Addendum entered by Francie Epperson RN 07/10/22 13:46: PER REVIEW OF P.T. EVAL, NO ACUTE P.T. NEEDS. Original Note: PATIENT LIVES WITH FAMILY. NO CANE OR WALKER HE DOES HAVE 2 INHALERS IN THE HOME THAT HE RELIES ON WHEN I CAN'T BREATHE REALLY WELL HCP ON FILE AND VERIFIED. COVARIA ANTONIO AND HIS LAST BOOSTER WAS IN JANUARY 2022. CASE MANAGEMENT FOLLOWING FOR DC NEEDS. IMM 07/10 COPY IN PATIENT CHART IN OVERFLOW UNIT.
--- NOTE | 2022-07-10 13:46 | MHC.SL.SWA ---
Speech Pathologist Impression: Risk of Aspiration Due to: History of Pneumonia Poor PO Intake Dysphasia Diet Status: Liquid Consistency and Strategies for Safe Swallow: Liquid Intake Recommendation: Thin Liquid Intake Strategies: Small Sips Solid Food Consistency: Dietary Recommendations: Pureed (NDD1) Additional Modifications to Solid Foods: Small amounts per sip or bite, at least double swallow after each bite with additional dry swallow as needed. Follow bites of puree with sips of liquid, including with medication presentations (crushed in puree). Add additional sauces and gravies to puree. Oral Medication Intake: Crushed with Puree Please contact the pharmacy regarding appropriate crushable or liquid drug formulations that are available whenever modified delivery is recommended. Compensatory Strategies and Precautions to be Taken for Safe Swallow: Sitting Upright (90 deg) Double Swallow Liquids from Cup Alternate Liquids/Solids Rate of Ingestion Change Supervision While Eating and Drinking for Safe Swallow: Intermittent Supervision Foods to Avoid: Sticky or congealed purees. Swallowing Recommended Treatments: Compens. Strategy Educat. Recommendation for Speech: Inpatient Speech Therapy Modified Barium Swallow Study - Inpatient Comment: Pt presents with a moderate to severe oropharyngeal dysphagia, secondary to extensive radiation treatment due to throat cancer (2002), scarring and strictures. Patient reports that he has been having increasing difficulty with swallowing recently, currently has a dx of pneumonia, likely due to aspiration. Recommend START diet of Puree (NDD1) with THIN liquids, pills Crushed in puree. Pt has strategies of multiple dry swallows after ingesting liquids and solids, and alternating sips of liquid with bites of solid to assist with swallowing more denser textures. As patient report increasing difficulty, sensation of food sticking or not going down when swallowing, recommend MBSS for further evaluation of swallow at this time. MD, metal polisher and buffer apprentice notified of recommendations by secure text, Nursing advised in person. NEWBORN HEARING SCREENER will continue to follow as inpatient, M-F. Recommend nutrition consultation if not already consulted. Frequency/Duration: Date Range for Service Req: Timeline to reassess: Management Architect Clinican/Clinical Fellow: No Supervisory Statement: I have reviewed and agree with the student/clinical fellow's documentation: N/A Speech Language Pathologist: Alissa Parker M.A., [facility])[3]-NEWBORN HEARING SCREENER
[2022-07-10] MEDS: Gabapentin 400 MG CAPSULE PO ×2 (13:58→20:44)
--- NOTE | 2022-07-10 15:28 | P.CNGI_ITS ---
History of Present Illness Data of Consult Service Date: 07/10/22 Requesting physician: Jeronimo Rawls Primary Care Provider: Tracy Oneill MD [facility] Reason for consult: GI Bleeding 71 YM with history of throat cancer in 2002, COPD, depression, hyperlipidemia, esophageal strictures, GERD, HTN, history of radiation therapy of the throat, hypothyroidism, seen at [facility] on 07/09/22 with complaints of chest pain, weakness and dizziness started on day of presentation.? Pt reports a hx of nose bleed on 07/07/22 and noted intermittent bleeding from his mouth x 3 days. He felt weak the following day and was unable to walk. 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 He is able take soups and soft foods like mashed potatoes. Pt reports only temporary relief of dysphagia for 1-2 weeks after dilation of the stricture. Patient reported that the chest pain is midsternal, worse with deep inspiration, radiating to his arms bilaterally, to his shoulders, as well as to his neck and head.? Patient reported that he has been feeling weak, has had dizziness, and has difficulty ambulating due to the mentioned.? He is complaining of a cough, some sputum production of yellow color, dyspnea on exertion.? He denied having any fever or chills, no palpitations, no abdominal pain nausea or vomiting, no diarrhea constipation, no urinary symptoms and no lower extremity edema.? Pt denied any orthopnea or PND.? Pt admits to wt loss from 190 to 130 lbs over the past several months He tells me that it has been recommended that he have a G-tube placed but he refused this. Pt had a colon[place] [address] Culver which showed sigmoid diverticulosis and no other abnormalities 2013 He had a colonoscopy till hepatic flexure due to a redundant colon. A CT colonography was normal. Evaluation of the left colon was suboptimal due to underdistension of the DC and redundant sigmoid colon. On arrival to the ED patient hemodynamically stable with slightly elevated blood pressure Labs are significant for hemoglobin of 6.5 with hematocrit 20.2 with a baseline from the 03 of July of 8.2 and 25.2, INR of 1.2, stool occult blood positive, troponin negative Patient being transfused PRBC and will be admitted for further management 07/10/[address] SCAN SHOWED: 1.? Dense region of opacity in the right upper lobe with additional heterogeneous consolidation in the adjacent superior right lower lobe. Appearance is suspicious for pneumonia in the proper clinical setting, though malignancy would be difficult to exclude. Follow-up chest CT in 3 months is recommended to assess for resolution. 2.? Semisolid material in the trachea, which could reflect aspiration. 3.? Redemonstrated scattered irregularly shaped foci bilaterally, overall similar to 03/18/2022, though attention on follow-up is recommended. 4.? Prominent ascending aorta measuring approximately 4.4 cm in diameter. 5.? Small pericardial effusion. 6.? Small hiatal hernia. Review of Systems Review of Systems: Yes all other systems are reviewed and are negative [facility] Past Medical History Medical History Anemia Aortic aneurysm Arthritis Back pain Cancer COPD (chronic obstructive pulmonary disease) COVID-19 Depression Difficulty swallowing Elevated cholesterol Esophageal stricture GERD (gastroesophageal reflux disease) History of chemotherapy History of epistaxis HTN (hypertension) Hx of radiation therapy Osteoarthritis of left shoulder Post laminectomy syndrome Pulmonary nodule Thyroid disease Family History Family History Father Brain cancer Mother CVD (cardiovascular disease) Maternal Aunt Diabetes Surgical History Surgical History H/O colonoscopy History of back surgery History of esophagogastroduodenoscopy (EGD) History of nasal surgery History of transurethral resection of prostate Social History Social History Household Members: Spouse Household Members Other:: 3 Housing: Apartment Do you presently have visiting nurse or other home services: No Alcohol intake: never Patient Tobacco Use Status: Never used Tobacco Tobacco use type: Cigarette Cigarette Packs Per Day: 3 Cigarettes Per Day: 60.0 Years Smoked: 25 e-Cigarette/Vaping Use: Never Used Second Hand Smoke Exposure: No Advance Directives Date on File: 03/04/21 service: No Current occupational status: disabled Meds Allergies Allergy/AdvReac Type Severity Reaction Status Date / Time Penicillins Allergy Rash Verified 06/27/22 09:11 aspirin [ASA] AdvReac Intermediate GI BLEED, Verified 06/27/22 09:11 Headaches Active Medications: Current Medications Acetaminophen (Acetaminophen 325 Mg Tablet) 650 mg PO Q6H PRN PRN Reason: Pain, Mild (Pain Scale 1-3) Acetaminophen (Acetaminophen 325 Mg Tablet) 650 mg PO TID PRN PRN Reason: headache Albuterol/Ipratropium (Albuterol/Iprat 2.5/0.5mg 3 Ml Ampul.Neb) 3 ml INHALE RQ4H PRN PRN Reason: wheezing Cyanocobalamin (Cyanocobalamin (Vitamin B-12) 1,000 Mcg Tablet) 1,000 mcg PO DAILY [facility] Docusate Sodium (Docusate Sodium 100 Mg Capsule) 100 mg PO DAILY PRN PRN Reason: Constipation Ferrous Sulfate (Ferrous Sulfate 324 Mg Tablet.) 324 mg PO DAILY [facility] Gabapentin (Gabapentin 400 Mg Capsule) 400 mg PO TID [facility] Last Admin: 07/10/22 13:58 Dose: 400 mg Ampicillin Sodium/Sulbactam (Sodium 3 gm/ Sodium Chloride) 100 mls @ 200 mls/hr IV Q6H [facility] Last Infusion: 07/10/22 14:29 Dose: Infused Levothyroxine Sodium (Levothyroxine Sodium 75 Mcg Tablet) 75 mcg PO DAILY@0600 [facility] Morphine Sulfate (Morphine Sulfate 2 Mg/Ml Cartridge) 1 mg IVPUSH Q4H PRN; Protocol PRN Reason: Pain, Severe (Pain Scale 7-10) Last Admin: 07/10/22 10:31 Dose: 1 mg Non-Formulary Medication (Umeclidinium-Vilanterol [Anoro Ellipta]) 1 inhalation INHALE DAILY [facility] Omeprazole (Omeprazole 40 Mg Capsule.) 40 mg PO DAILY@0630 [facility] Ondansetron HCl (Ondansetron Hcl 4 Mg/2 Ml Vial) 4 mg IVPUSH Q8H PRN PRN Reason: Nausea and Vomiting Pantoprazole Sodium (Pantoprazole Sodium 40 Mg/10 Ml Vial) 40 mg IVPUSH DAILY@0630 [facility] Last Admin: 07/10/22 07:52 Dose: 40 mg Sodium Chloride (0.9 % Sodium Chloride Flush 3 Ml Syringe) 3 ml IVFLUSH QSHIFT [facility] Last Admin: 07/10/22 13:59 Dose: 3 ml Home Medications Medication Instructions Recorded Confirmed Last Taken Type cyanocobalamin (vitamin B-12) 1 tab PO DAILY 06/21/20 07/10/22 03/17/22 History 1,000 mcg tablet (Vitamin B-12) umeclidinium 62.5 mcg-vilanterol 1 inh inhalation DAILY 06/21/20 07/10/22 03/17/22 History 25 mcg/actuation powdr for inhalation (Anoro Ellipta) gabapentin 400 mg capsule 1 cap PO TID 03/04/21 07/10/22 03/17/22 History levothyroxine 75 mcg tablet 1 tab PO DAILY@0600 03/04/21 07/10/22 03/17/22 History acetaminophen 500 mg tablet 500 mg PO TID PRN headache 05/14/21 07/10/22 09/22/21 History albuterol sulfate 90 mcg/actuation 2 puff PO Q4H PRN for dyspnea 03/18/22 07/10/22 Unknown History aerosol inhaler omeprazole 40 mg capsule,delayed 40 mg PO DAILY 03/18/22 07/10/22 03/17/22 History release ferrous sulfate 325 mg (65 mg 1 tab PO DAILY 04/07/22 07/10/22 03/17/22 History iron) tablet (FeroSul) levocetirizine 5 mg tablet 1 tab PO DAILY PRN Allergic 07/10/22 07/10/22 Unknown History Symptoms multivitamin 1 tab PO DAILY 07/10/22 07/10/22 Unknown History naproxen 500 mg tablet,delayed 500 mg PO BID 07/10/22 07/10/22 Unknown History release Physical Exam Vital Signs: Vital Signs: Last Vital Signs Temp 98.1 F 07/10/22 06:43 Pulse 88 07/10/22 10:29 Resp 14 07/10/22 07:57 BP 138/76 07/10/22 10:29 Pulse Ox 99 07/10/22 07:57 O2 Del Method 07/10/22 07:57 BMI result Body Mass Index 20.3 Const: General: no acute distress Nutritional Appearance: average body habitus Orientation/consciousness: patient oriented x3 Limitations: no limitations HEENT: Head: Yes normal to inspection Ears: hearing grossly normal bilaterally Mouth: Normal oral and palatal mucosa present Eyes: Sclerae: sclerae normal Pupils: Equal, round and reactive pupils present Neck: Neck: Yes normal visual inspection Chest: Chest palpation & inspection: normal inspection of the chest Resp: Effort & Inspection: normal respiratory effort Auscultation: clear to auscultation bilaterally Cardio: Palpation: normal PMI Rate: regular rate Rhythm: regular rhythm Heart sounds: S1 normal heart sound present, S2 normal heart sound present and no murmurs GI: Palpation (GI): Soft to palpation, nontender and No hepatosplenomegaly present Auscultation: normal bowel sounds Rectal Exam - Male: Yes deferred Skin: General skin exam: no rashes or lesions noted Neuro: General: patient oriented x3, gait normal and moves all extremities Cranial nerves: Yes Equal, round and reactive pupils present Psych: Appearance: grossly normal Mental Status: mental status grossly normal Results Labs CBC & Chem 7: 07/11/22 06:13 07/11/22 06:13 Labs: Short CBC 07/09/22 07/10/22 Range/Units 20:49 05:59 WBC 7.3 7.8 (4.8-10.8) X10*3/uL Hgb 6.5 L* D 9.0 L D (14.0-18.0) g/dl Hct 20.2 L* 26.8 L D (42.0-52.0) % Plt Count 453 H 437 H (160-400) X10*3/uL BMP 07/09/22 07/10/22 20:49 05:59 Sodium 139 140 Potassium 4.4 5.0 Chloride 100 105 Carbon Dioxide 26 23 BUN 19 H 14 Creatinine 0.78 0.65 Calcium 9.4 8.6 D Liver Function 07/09/22 Range/Units 20:49 Total Bilirubin < 0.2 (0.0-1.0) mg/dL AST 25 (5-37) U/L ALT 28 (0-40) U/L Alkaline Phosphatase 94 D (39-117) U/L Albumin 3.8 (3.5-5.0) g/dL Assessment and Plan (1) Acute anemia: Status: Acute (2) Esophageal stricture: Status: Acute Plan 71 YM with history of throat cancer in 2002, COPD, depression, hyperlipidemia, esophageal strictures, GERD, HTN, history of radiation therapy of the throat, hypothyroidism, seen at [facility] on 07/09/22 with complaints of chest pain, weakness and dizziness started on day of presentation.? Pt reports a hx of nose bleed on 07/07/22 and noted intermittent bleeding from his mouth x 3 days. 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 He is able take soups and soft foods like mashed potatoes. Pt reports only temporary relief of dysphagiabe scheduled for 1-2 weeks after dilation of the stricture and is not interested in repeat EGD and dilation. Pt admits to wt loss from 190 to 130 lbs over the past 20 yrs. He tells me that it has been recommended that he have a G-tube placed but he refused this. Anemia likely a combination of nutritional deficiency related to decreased PO intake and episode of epistaxis. No overt GI bleeding. ?RECOMMENDATIONS: 1. Follow serial H & H post blood transfusion 2. Continue PO Omeprazole 3. Pt can be scheduled for an outpatient evaluation with an EGD and a colonoscopy with Dr Payan, Procedures Date of Service Date of Service: 07/10/22
[2022-07-10] MEDS: Acetaminophen 325 MG TABLET 650 MG PO (17:15)
[2022-07-11] MEDS: 0.9 % Sodium Chloride Flush 3 ML SYRINGE IVFLUSH ×3 (00:06→17:12)
[2022-07-11] MEDS: Morphine Sulfate 2 MG/ML CARTRIDGE 1 MG IVPUSH ×2 (00:20→20:41)
[2022-07-11 01:19] VITALS: RESP 15
[2022-07-11] MEDS: Ampicillin Sodium/Sulbactam Na 3 GM in 0.9 % Sodium Chloride 100 ML IV ×4 (01:31→20:37)
[2022-07-11 03:17] VITALS: BP 132/70; PULSE 98; RESP 18; TEMP 36.9; O2SAT 98
[2022-07-11] MEDS: Levothyroxine Sodium 75 MCG TABLET PO (06:03)
[2022-07-11] MEDS: Pantoprazole Sodium 40 MG/10 ML VIAL IVPUSH (06:04)
[2022-07-11] MEDS: Omeprazole 40 MG CAPSULE.DR PO (06:04)
[2022-07-11 06:28] LABS: MANUAL DIFF FLAG NO
[2022-07-11 06:33] LABS: Basophils Percent Auto 0.5 % (0-2); Eosinophils Absolute Auto 0.1 X10*3/uL (0.0-0.4); Hematocrit 30.1 % (42.0-52.0); Hemoglobin 9.9 g/dl (14.0-18.0); Imm Gran Abs Auto 0.06 X10*3/uL (0.00-0.03); Imm Gran Pct Auto 0.7 % (0.0-0.4); Lymphocytes Absolute Auto 0.6 X10*3/uL (1.2-4.9); Lymphocytes Percent Auto 6.7 % (20-40); Mean Corpuscular HGB Conc 32.9 g/dl (31.0-36.0); Mean Corpuscular Hemoglobin 29.5 pg (27.0-33.0); Mean Corpuscular Volume 89.6 fL (80.0-98.0); Mean Platelet Volume 9.6 fL (9.4-12.4); Monocytes Percent Auto 10.9 % (2-11); NRBC Pct Auto 0.2 /100WBC (0.0-0.2); Neutrophils Percent Auto 80.2 % (45-73); Platelet Count 446 X10*3/uL (160-400); Red Blood Count 3.36 X10*6/uL (4.60-5.80); White Blood Count 8.7 X10*3/uL (4.8-10.8)
[2022-07-11] MEDS: oxyCODONE HCl Immed Release 5 MG TABLET PO (06:46)
[2022-07-11] MEDS: guaiFENesin DM 100/10/5 ML 5 ML SYRUP PO (06:46)
[2022-07-11 06:47] LABS: Anion Gap 17 (12-20); Blood Urea Nitrogen 10 mg/dL (9-16); Calcium 9.4 mg/dL (8.4-10.2); Carbon Dioxide 24 mmol/L (22-29); Chloride 102 mmol/L (96-108); Creatinine Clr Calc Pharmacy 78.4; Estimated Glomerular Filt Rate > 60; Glucose Random 100 mg/dL (60-115); Potassium 4.2 mmol/L (3.3-5.1); Sodium 139 mmol/L (135-145)
[2022-07-11] MEDS: Gabapentin 400 MG CAPSULE PO ×3 (08:49→20:36)
[2022-07-11] MEDS: Ferrous Sulfate 324 MG TABLET.DR PO (08:49)
[2022-07-11] MEDS: Cyanocobalamin (Vitamin B-12) 1,000 MCG TABLET 1000 MCG PO (08:49)
[2022-07-11 08:59] VITALS: BP 133/69; PULSE 86; RESP 16; TEMP 36.5; O2SAT 98
--- NOTE | 2022-07-11 10:47 | P.PNIM_ITS ---
Subjective Subjective Date of Service: 07/11/22 Interval History: f/u for pneumonia, dysphagia interval history: no sob, no cough, still with touble swallowing Review of Systems no fever or chills, no sob, trouble swallowing Physical Exam Vital Signs: Vital Signs: Last Vital Signs Temp 97.7 F 07/11/22 08:59 Pulse 86 07/11/22 08:59 Resp 16 07/11/22 08:59 BP 133/69 07/11/22 08:59 Pulse Ox 98 07/11/22 08:59 O2 Del Method 07/11/22 08:59 BMI result Body Mass Index 20.3 Const: Other: General: AO X 3, no acute distress Resp: CTA bilateral CVS: S1,S2,RRR GI: +BS, NT, no distention Skin: No rash Neuro: motor grossly intact Psych: appropriate affect Objective Data Active Medications Acetaminophen (Acetaminophen 325 Mg Tablet) 650 mg PO Q6H PRN PRN Reason: Pain, Mild (Pain Scale 1-3) Last Admin: 07/10/22 17:15 Dose: 650 mg Documented By: JENNIFER Acetaminophen (Acetaminophen 325 Mg Tablet) 650 mg PO TID PRN PRN Reason: headache Albuterol/Ipratropium (Albuterol/Iprat 2.5/0.5mg 3 Ml Ampul.Neb) 3 ml INHALE RQ4H PRN PRN Reason: wheezing Cyanocobalamin (Cyanocobalamin (Vitamin B-12) 1,000 Mcg Tablet) 1,000 mcg PO DAILY [facility] Last Admin: 07/11/22 08:49 Dose: 1,000 mcg Documented By: SMITH Docusate Sodium (Docusate Sodium 100 Mg Capsule) 100 mg PO DAILY PRN PRN Reason: Constipation Ferrous Sulfate (Ferrous Sulfate 324 Mg Tablet.) 324 mg PO DAILY [facility] Last Admin: 07/11/22 08:49 Dose: 324 mg Documented By: SMITH Gabapentin (Gabapentin 400 Mg Capsule) 400 mg PO TID [facility] Last Admin: 07/11/22 08:49 Dose: 400 mg Documented By: SMITH Guaifenesin/Dextromethorphan (Guaifenesin Dm 100/10/5 Ml 5 Ml Syrup) 5 ml PO Q4H PRN PRN Reason: cough Last Admin: 07/11/22 06:46 Dose: 5 ml Documented By: DEEPIKA Ampicillin Sodium/Sulbactam (Sodium 3 gm/ Sodium Chloride) 100 mls @ 200 mls/hr IV Q6H [facility] Last Admin: 07/11/22 08:49 Dose: 200 mls/hr Documented By: SMITH Levothyroxine Sodium (Levothyroxine Sodium 75 Mcg Tablet) 75 mcg PO DAILY@0600 [facility] Last Admin: 07/11/22 06:03 Dose: 75 mcg Documented By: DEEPIKA Morphine Sulfate (Morphine Sulfate 2 Mg/Ml Cartridge) 1 mg IVPUSH Q4H PRN; Protocol PRN Reason: Pain, Severe (Pain Scale 7-10) Last Admin: 07/11/22 00:20 Dose: 1 mg Documented By: PATRICKSUKUMAR Non-Formulary Medication (Umeclidinium-Vilanterol [Anoro Ellipta]) 1 inhalation INHALE DAILY [facility] Omeprazole (Omeprazole 40 Mg Capsule.Dr) 40 mg PO DAILY@0630 [facility] Last Admin: 07/11/22 06:04 Dose: 40 mg Documented By: DEEPIKA Ondansetron HCl (Ondansetron Hcl 4 Mg/2 Ml Vial) 4 mg IVPUSH Q8H PRN PRN Reason: Nausea and Vomiting Pantoprazole Sodium (Pantoprazole Sodium 40 Mg/10 Ml Vial) 40 mg IVPUSH DAILY@0630 [facility] Last Admin: 07/11/22 06:04 Dose: 40 mg Documented By: DEEPIKA Sodium Chloride (0.9 % Sodium Chloride Flush 3 Ml Syringe) 3 ml IVFLUSH QSHIFT [facility] Last Admin: 07/11/22 09:10 Dose: 3 ml Documented By: SMITH Labs CBC & Chem 7: 07/11/22 06:13 07/11/22 06:13 Labs: Laboratory Results - last 24 hr 07/11/22 07/11/22 06:13 06:13 MCV 89.6 MCH 29.5 MCHC 32.9 RDW 17.0 H Plt Count 446 H MPV 9.6 Immature Gran % (Auto) 0.7 H Neut % (Auto) 80.2 H Lymph % (Auto) 6.7 L [place] % (Auto) 10.9 Eos % (Auto) 1.0 Baso % (Auto) 0.5 Lymph # (Auto) 0.6 L [place] # (Auto) 1.0 Eos # (Auto) 0.1 Baso # (Auto) 0.0 Abs Immat Gran (auto) 0.06 H Absolute Neuts (auto) 7.0 Absolute Nucleated RBC 0.020 H Nucleated RBC % (auto) 0.2 Anion Gap 17 Estim Creat Clear Calc 78.4 Estimated GFR > 60 Random Glucose 100 Calcium 9.4 D Microbiology Microbiology Results: Microbiology 07/10/22 07:33 Blood Culture - Preliminary Blood - Venous No growth after 24 hours. 07/10/22 07:33 Blood Culture - Preliminary Blood - Venous No growth after 24 hours. Assessment and Plan (1) Community acquired pneumonia: Status: Acute (2) Aspiration into airway: Status: Acute (3) Acute anemia: Status: Acute (4) Lumbar radiculitis: Status: Acute Plan 71-year-old male with previous medical history of anemia, history of throat cancer status post radiation therapy and esophageal stricture presents the hospital with complaints of chest pain with cough found to have acute anemia. #. Community-acquired pneumonia with concern for aspiration -IV Unasyn D2 -Was evaluated by speech who recommend Puree diet with thin liquids, pills crushed in puree. Also recommend MBSS scheduled -continue present diarrhea #. Acute symptomatic on chronic anemia -Stool occult positive in ER. -s/p PRBC transfusion. Follow H&H. GI eval pending #. Abnormal CT chest -Will need follow up imaging to rule out malignancy once acute infection resolves in this patient with history of cancer. #. Radiculopathy--CT neck no mass #. Hypothyroidism -on synthroid DVT prophylaxis : SCDs Diet; npo until GI evaluation Full code need for inaptient stay: ognoing work up for dysphagia, CAP treatment with IV Abx Quality Stroke Does the patient have a stroke diagnosis?: No VTE Prior VTE?: No VTE Risk Level:: Medical - moderate - high VTE Device Contraindication: N/A - Device Ordered VTE Drug Contraindication: Treatment Not Indicated
[2022-07-11 14:53] VITALS: BP 132/78; PULSE 99; RESP 16; TEMP 36.6; O2SAT 99
--- NOTE | 2022-07-11 18:55 | MHC.SL.IMP ---
Date of Plan of Treatment: 07/11/22 Onset of Symptoms/Illness: 07/11/03 Date Treatment Started: 07/11/22 Admitting Diagnosis: Community acquired pneumonia, Aspiration into airway, Acute anemia, Lumbar radiculitis Primary Speech & Language Diagnosis: R13.12 Oropharyngeal Phase Dysphagia Reason for Today's Visit: 34855 Modified Barium Swallow Study Comments: Hx of throat cancer treated with radiation and chemotherapy Pre-evaluation Dietary Consistencies: Pureed (NDD1) Pre-evaluation Liquid Consistency: Thin Pre-evaluation Medication Administration: Crushed with Puree Modified Barium Swallow Study Fluoroscopic Evaluation of Swallowing Function CPT Code 90806 Evaluation Year: 2021 Reason for Study: Patient displays overt s/s of aspiration. Referring Physician: Luis Lofton MD Evaluating Clinician: Marija Keane MA, CCC-MELTER LOADER Study Number: 1 Patient Name: Lawrence Pedersen Status: Inpatient, Stretcher Age: 71 Gender: Male MEDICAL HISTORY: Year of Onset or Diagnosis: 2002 Medical History Anemia Aortic aneurysm Arthritis Back pain Cancer COPD (chronic obstructive pulmonary disease) COVID-19 Depression Difficulty swallowing Elevated cholesterol Esophageal stricture GERD (gastroesophageal reflux disease) History of chemotherapy History of epistaxis HTN (hypertension) Hx of radiation therapy Osteoarthritis of left shoulder Post laminectomy syndrome Pulmonary nodule Thyroid disease Current (pre-evaluation) Intake/Diet: Route: PO Diet Grade: Puree Liquid Consistencies: Thin Pre-Study Functional Oral Intake Scale (FOIS): 5- Total oral intake of multiple consistencies requiring special preparation Pain: None reported at time of study SUBJECTIVE: Pt is a 71 year old male brought to the ED with complaints of chest pain with cough, found to have acute anemia and pneumonia with concern for aspiration. Pt?s chest CT showed semisolid material in the trachea and dense region of opacity in the right upper lobe with additional heterogeneous consolidation in the adjacent superior right lower lobe. Pt is status post throat cancer in 2002 for which he received extensive radiation treatment and chemotherapy, and reported that that is when his dysphagia started. Pt reported that he has had increasing difficulty with swallowing recently, with food feeling stuck in his throat and coming out of his nose. Pt reported he ?must take his time to swallow? and must drink liquids after bites of food. Pt reports he must eat and drink things that are ?almost like liquid,? and listed Ensure, soup, milk, and mashed potatoes as examples. Pt complained of having ?thick? saliva, which he has to continually spit out. Pt reported he had issues with dry mouth in the past, but never experienced this before. Pt additionally has esophageal strictures, which he reported he last had expanded in December of this year. He has previously been seen at [facility] this year, first 09/14/21, then 03/09/22, during both inpatients stays seen by MELTER LOADER, put on a diet of pureed solids with thin liquids which is patient's baseline. MELTER LOADER recommended that after discharge from 03/09/22, patient be referred for MBSS as outpatient. Pt had MBSS outpatient appointment here at [facility] on 06/11/22, but did not show up for this appointment. 07/[address]: ?1. Dense region of opacity in the right upper lobe with additional heterogeneous consolidation in the adjacent superior right lower lobe. Appearance is suspicious for pneumonia in the proper clinical setting, though malignancy would be difficult to exclude. Follow-up chest CT in 3 months is recommended to assess for resolution. 2. Semisolid material in the trachea, which could reflect aspiration. 3. Redemonstrated scattered irregularly shaped foci bilaterally, overall similar to 03/18/2022, though attention on follow-up is recommended. 4. Prominent ascending aorta measuring approximately 4.4 cm in diameter. 5. Small pericardial effusion. 6. Small hiatal hernia.? Oral Motor Exam Facial Symmetry: Symmetrical Facial Movement: Controlled Mouth Occlusion: Normal Oral-Facial Teeth Characteristics: Edentulous Oral-Facial Lip Pucker Description: Normal Oral-Facial Smile (Lips) Description: Normal Oral-Facial Puff Cheeks Description: Normal Tongue Size: Normal Tongue Frenum Length: Normal Tongue Excursion Description: Incomplete Tongue Range of Movement Description: Reduced Tongue Speed of Movement Description: Normal Tongue Strength of Movement (against opposing pressure): Reduced Tongue Movement Characteristics: Normal/Absent Is patient able to manage secretions?: No Is patient able to produce volitional cough?: Yes Food and Liquid Trials: Oral Impairment: Lip Closure: Did not test Oral Impairment: Tongue Control During Bolus Hold: 3=Posterior escape of greater than half of bolus Oral Impairment: Bolus Preparation/Mastication: Did not test Oral Impairment: Bolus Transport/Lingual Motion: 2=Slowed tongue motion Oral Impairment: Oral Residue: 1=Trace residue lining oral structures Oral Impairment:Initiation of Pharyngeal Swallow: 3=Bolus head in pyriforms Pharyngeal Impairment: Soft Palate Elevation: 1=Trace column of contrast or air between SP and PW Pharyngeal Impairment: Laryngeal Elevation: 3=No superior movement of thyroid cartilage Pharyngeal Impairment: Anterior Hyoid Excursion: 2=No anterior movement Pharyngeal Impairment: Epiglottic Movement: 2=No inversion Pharyngeal Impairment: Laryngeal Vestibular Closure:: 2=None: No inversion Pharyngeal Impairment: Pharyngeal Stripping Wave: 1=Present: diminished Pharyngeal Impairment: Pharyngeal Contraction: Did not test Pharyngeal Impairment: Pharyngoesophageal Segment Openin=Partial distention/partial duration: partial obstruction of flow Pharyngeal Impairment: Tongue Base (TB) Retraction: 3=Wide column of contrast/air between TB and posterior PW Pharyngeal Impairment: Pharyngeal Residue: 3=Majority of contrast within or on pharyngeal structures Pharyngeal Impairment: Esophageal Clearance Upright Position: Did not test Impressions and Recommendations Clinical Observations: OBJECTIVE: Time-out: performed at 02:15 Evaluation Start: 2:00; Stop: 2:10 Patient Positioning: Seated 70-90 degrees Viewing Planes: LATERAL ONLY Contrast: MBSImP? Standardized Protocol using commercially prepared, standardized Barium viscosities, including: Varibar? THIN LIQUID (40% w/v, <15 cps) , Varibar? NECTAR (40% w/v, <150-450 cps) , Varibar? THIN HONEY (40% w/v, <800-1800 cps) MBSImP ID: [id number] MBSImP Results: Lip closure for intraoral bolus containment could not be assessed due to logistical reasons not related to physiologic impairment. Tongue control during bolus hold allowed posterior escape of greater than half of the bolus. Bolus preparation and mastication received the highest impairment score; solid not given due to patient safety concerns related to oral impairment. Bolus transport/lingual motion was with slowed tongue motion. Oral residue was a trace, lining oral structures. Initiation of the pharyngeal swallow occurred when the bolus head was in the pyriform sinuses. Soft palate elevation allowed a trace column of contrast or air between the soft palate and the pharyngeal wall. Laryngeal elevation demonstrated no superior movement of the thyroid cartilage. Anterior hyoid excursion demonstrated no movement. Epiglottic movement resulted in no inversion. Laryngeal vestibular closure was absent, resulting in a wide column of air/contrast within the laryngeal vestibule at the height of the swallow. Pharyngeal stripping wave was present, but diminished. Pharyngeal contraction could not be determined due to logistical reasons not related to physiologic impairment. Pharyngoesophageal segment opening demonstrated partial distension/partial duration, with partial obstruction of bolus flow. Tongue base retraction allowed a wide column of contrast or air between the retracted tongue base and the posterior pharyngeal wall. Pharyngeal residue was the majority of contrast within or on pharyngeal structures. Esophageal clearance in the upright position could not be assessed due to logistical reasons not related to physiologic impairment. Oral Impairment Score: 11 (absence of score, component 1) Pharyngeal Impairment Score: 18 (absence of score, component 13) Esophageal Impairment Score: --- (absence of score, component 17) Laryngeal Penetration and Aspiration: Aspiration was observed in today's study. Honey-thick, [place]-thick, Thin Contrast entered the airway, passed below the vocal folds, and no effort were made to eject. ASSESSMENT: Clinician Assessment: This exam was conducted by a multidisciplinary team, which included a speech pathologist, radiologist, and instructional media services technician. Pt was seated upright at 90 degree position in a chair for lateral view only. Pt trialed the following liquid and solid consistencies: thin liquid barium, nectar thick liquid barium, honey thick liquid barium, pureed solid (mixture applesauce with barium paste). Pt presented with profound oropharyngeal dysphagia. There was premature posterior escape of greater than half of the bolus prior to productive tongue movement. Posterior lingual movement was slowed for transport of bolus. There was trace lingual residue which subsequently cleared. Significant delay in pharyngeal swallow trigger, initiated as bolus head reached pyriform sinuses. There was a trace column of air between the soft palate and the pharyngeal wall, with no escape of contrast to the nasopharynx during this exam. There was no superior movement of the thyroid cartilage, no anterior hyoid excursion and no epiglottic inversion. No laryngeal vestibular closure. This resulted in a wide open airway, wide column of contrast in the laryngeal vestibule. With all consistencies, wide column of contrast entered the trachea to the level of the vocal folds with significant penetration. Pt?s protective cough in response to the entrance of contrast in the airway was minimal. Pt was consistently instructed to produce a volitional cough or throat clear in an attempt to clear contrast from trachea, which reduced but did not entirely clear contrast from airway. Pt also swallowed multiple times, which reduced contrast from the airway, but did not prevent and at times resulted in tracheal aspiration. Majority of contrast collected in the valleculae and pyriforms, reduced with multiple dry swallows. Liquid Intake Recommendation: NPO Dietary Recommendations: NPO Medication Administration: NPO Please contact the pharmacy regarding appropriate crushable or liquid drug formulations that are available whenever modified delivery is recommended. Recommendation for Speech Therapy: Outpatient vs. VNA vs. Rehab Speech Therapy Inpatient Speech Therapy Modified Barium Swallow Study - Outpatient PLAN: Intake Recommendations: Route: NPO/Alternate Route Diet Grade: IDDSI Levels: Liquid Consistencies: IDDSI Levels: Post-Study Functional Oral Intake Scale (FOIS): 1- No oral intake Pt presents with PROFOUND OROPHARYNGEAL DYSPHAGIA with compromised airway protection. No epiglottic inversion and no laryngeal vestibular closure resulted in wide open airway. This exam revealed with all consistencies penetration with subsequent aspiration. Based on objective results of this exam alone, recommend NPO as pt is at high risk of aspiration. Recommend speech therapy for the treatment of dysphagia during hospitalization and at the next level of care with repeat MBSS post-treatment to monitor for any improvement or potential upgrade in recommendations. Recommend consultations with G.I. specialist and dietitian to assess appropriate means of nutritional intake. Ensure precautions to reduce risk of microaspiration- Rigid daily oral care routine and elevate head of bed at least 30 degrees. The final treatment plan for this patient should rest with their medical care team. Additional recommendations should be considered with the totality of the Pt in mind. Suggested Referrals: The patient might benefit from a referral to: Gastroenterology, Nutrition Services Therapy Recommendations: Therapy will be continued Prognosis for Improvement: The prognosis for the patient to meet nutritional needs by mouth is poor based on degree of impairment. Shelter Goals: ? The patient will demonstrate improved swallowing function via repeat clinical evaluation, videoendoscopy/videofluoroscopy and/or patient self-rating scores. ? The patient and/or family will participate in further education for swallowing goals. Frequency/Duration: Date Range for Service Requested: Timeline to reassess: 3 months Clinician - Supplemental, Miscellaneous Communication: It is important to note MBSS objective studies are snapshots in time and Patient function might vary with factors such as time of day or concomitant medical conditions. For this reason, the final treatment plan for this patient should rest with their medical care team. Additional recommendations should be considered with the totality of the Patient in mind. Thank for the opportunity to participate in the care of this patient. If you have any questions about the content of this report, please contact the [facility] at [facility]. Education: Education regarding findings from today's study and plans for therapy were provided to Patient only through Verbal Instruction. Procurement Services Manager Clinician/Clinical Fellow: No Supervisory Statement: N/A Speech Language Pathologist: Marija Keane M.A., CCC-MELTER LOADER
[2022-07-12] MEDS: Ampicillin Sodium/Sulbactam Na 3 GM in 0.9 % Sodium Chloride 100 ML IV ×4 (02:21→19:24)
[2022-07-12] MEDS: 0.9 % Sodium Chloride Flush 3 ML SYRINGE IVFLUSH ×3 (02:23→15:16)
[2022-07-12] MEDS: Dextrose 5 % and 0.45 % NaCl 1,000 ML 100 ML IVCONT ×3 (03:32→17:56)
[2022-07-12 03:44] VITALS: BP 146/85; PULSE 85; RESP 17; TEMP 36.7; O2SAT 100
[2022-07-12] MEDS: Omeprazole 40 MG CAPSULE.DR PO (05:37)
[2022-07-12] MEDS: Levothyroxine Sodium 75 MCG TABLET PO (05:37)
[2022-07-12] MEDS: Pantoprazole Sodium 40 MG/10 ML VIAL IVPUSH (05:37)
[2022-07-12 08:00] VITALS: BP 127/68; PULSE 91; RESP 16; TEMP 36.7; O2SAT 98
[2022-07-12] MEDS: Morphine Sulfate 2 MG/ML CARTRIDGE 1 MG IVPUSH ×3 (08:15→18:25)
[2022-07-12] MEDS: guaiFENesin DM 100/10/5 ML 5 ML SYRUP PO (08:15)
--- NOTE | 2022-07-12 08:41 | P.PNIM_ITS ---
Subjective Subjective Date of Service: 07/12/22 Interval History: f/u for pneumonia, dysphagia interval history: no sob, no cough, still with trouble swallowing Review of Systems no fever or chills, no sob, trouble swallowing Physical Exam Vital Signs: Vital Signs: Last Vital Signs Temp 98.1 F 07/12/22 08:00 Pulse 91 07/12/22 08:00 Resp 16 07/12/22 08:00 BP 127/68 07/12/22 08:00 Pulse Ox 98 07/12/22 08:00 O2 Del Method 07/12/22 08:00 BMI result Body Mass Index 30.0 Const: Other: General: AO X 3, no acute distress Resp: CTA bilateral CVS: S1,S2,RRR GI: +BS, NT, no distention Skin: No rash Neuro: motor grossly intact Psych: appropriate affect Objective Data Active Medications Acetaminophen (Acetaminophen 325 Mg Tablet) 650 mg PO Q6H PRN PRN Reason: Pain, Mild (Pain Scale 1-3) Last Admin: 07/10/22 17:15 Dose: 650 mg Documented By: JENNIFER Acetaminophen (Acetaminophen 325 Mg Tablet) 650 mg PO TID PRN PRN Reason: headache Albuterol/Ipratropium (Albuterol/Iprat 2.5/0.5mg 3 Ml Ampul.Neb) 3 ml INHALE RQ4H PRN PRN Reason: wheezing Cyanocobalamin (Cyanocobalamin (Vitamin B-12) 1,000 Mcg Tablet) 1,000 mcg PO DAILY [facility] Last Admin: 07/11/22 08:49 Dose: 1,000 mcg Documented By: SMITH Docusate Sodium (Docusate Sodium 100 Mg Capsule) 100 mg PO DAILY PRN PRN Reason: Constipation Ferrous Sulfate (Ferrous Sulfate 324 Mg Tablet.) 324 mg PO DAILY [facility] Last Admin: 07/11/22 08:49 Dose: 324 mg Documented By: SMITH Gabapentin (Gabapentin 400 Mg Capsule) 400 mg PO TID [facility] Last Admin: 07/11/22 20:36 Dose: 400 mg Documented By: BETTY Guaifenesin/Dextromethorphan (Guaifenesin Dm 100/10/5 Ml 5 Ml Syrup) 5 ml PO Q4H PRN PRN Reason: cough Last Admin: 07/12/22 08:15 Dose: 5 ml Documented By: SARAH Ampicillin Sodium/Sulbactam (Sodium 3 gm/ Sodium Chloride) 100 mls @ 200 mls/hr IV Q6H [facility] Last Admin: 07/12/22 08:07 Dose: 200 mls/hr Documented By: SARAH Dextrose/Sodium Chloride (D51/2ns) 1,000 mls @ 100 mls/hr IVCONT .Q10H [facility] Last Admin: 07/12/22 03:32 Dose: 100 mls/hr Documented By: LAYNE Levothyroxine Sodium (Levothyroxine Sodium 75 Mcg Tablet) 75 mcg PO DAILY@0600 [facility] Last Admin: 07/12/22 05:37 Dose: 75 mcg Documented By: LAYNE Morphine Sulfate (Morphine Sulfate 2 Mg/Ml Cartridge) 1 mg IVPUSH Q4H PRN; Protocol PRN Reason: Pain, Severe (Pain Scale 7-10) Last Admin: 07/12/22 08:15 Dose: 1 mg Documented By: SARAH Non-Formulary Medication (Umeclidinium-Vilanterol [Anoro Ellipta]) 1 inhalation INHALE DAILY [facility] Omeprazole (Omeprazole 40 Mg Capsule.Dr) 40 mg PO DAILY@0630 [facility] Last Admin: 07/12/22 05:37 Dose: 40 mg Documented By: LAYNE Ondansetron HCl (Ondansetron Hcl 4 Mg/2 Ml Vial) 4 mg IVPUSH Q8H PRN PRN Reason: Nausea and Vomiting Pantoprazole Sodium (Pantoprazole Sodium 40 Mg/10 Ml Vial) 40 mg IVPUSH D AILY@0630 [facility] Last Admin: 07/12/22 05:37 Dose: 40 mg Documented By: LAYNE Sodium Chloride (0.9 % Sodium Chloride Flush 3 Ml Syringe) 3 ml IVFLUSH QSHIFT [facility] Last Admin: 07/12/22 08:07 Dose: 3 ml Documented By: SARAH Labs CBC & Chem 7: 07/11/22 06:13 07/11/22 06:13 Microbiology Microbiology Results: Microbiology 07/10/22 07:33 Blood Culture - Preliminary Blood - Venous No growth after 24 hours. 07/10/22 07:33 Blood Culture - Preliminary Blood - Venous No growth after 24 hours. Assessment and Plan (1) Community acquired pneumonia: Status: Acute (2) Aspiration into airway: Status: Acute (3) Acute anemia: Status: Acute (4) Lumbar radiculitis: Status: Acute Plan 71-year-old male with previous medical history of anemia, history of throat cancer status post radiation therapy and esophageal stricture [facility] with complaints of chest pain with cough found to have acute anemia. #. Community-acquired pneumonia with concern for aspiration -IV Unasyn D3 -Was evaluated by speech with recommendation for NPO at this time -will discuss PEG with him #. Acute symptomatic on chronic anemia -Stool occult positive in ER. -s/p PRBC transfusion. Follow H&H. GI seen and he is declining endoscopy at this time, will reassess #. Abnormal CT chest -Will need follow up imaging to rule out malignancy once acute infection resolves in this patient with history of cancer. #. Radiculopathy--CT neck no mass #. Hypothyroidism -on synthroid DVT prophylaxis : SCDs Diet; npo until GI evaluation Full code need for inaptient stay: ognoing work up for dysphagia, CAP treatment with IV Abx, NPO d/t dysphagia and may need a PEG Quality Stroke Does the patient have a stroke diagnosis?: No VTE Prior VTE?: No VTE Risk Level:: Medical - moderate - high VTE Device Contraindication: N/A - Device Ordered VTE Drug Contraindication: Treatment Not Indicated
[2022-07-12 11:52] VITALS: BP 137/64; PULSE 81; RESP 18; TEMP 36.6; O2SAT 99
[2022-07-12 15:01] VITALS: BP 127/67; PULSE 88; RESP 18; TEMP 36.8; O2SAT 98
[2022-07-12 19:10] VITALS: BP 136/78; PULSE 77; RESP 18; TEMP 37.1; O2SAT 98
[2022-07-12 23:45] VITALS: BP 146/68; PULSE 91; RESP 16; TEMP 36.8; O2SAT 97
[2022-07-13] MEDS: Ampicillin Sodium/Sulbactam Na 3 GM in 0.9 % Sodium Chloride 100 ML IV ×4 (01:26→20:00)
[2022-07-13] MEDS: Dextrose 5 % and 0.45 % NaCl 1,000 ML 100 ML IVCONT ×2 (01:26→13:19)
[2022-07-13] MEDS: Morphine Sulfate 2 MG/ML CARTRIDGE 1 MG IVPUSH ×4 (01:33→18:16)
[2022-07-13 03:53] VITALS: BP 128/57; PULSE 99; RESP 14; TEMP 36.9; O2SAT 97
[2022-07-13] MEDS: Pantoprazole Sodium 40 MG/10 ML VIAL IVPUSH (05:28)
--- NOTE | 2022-07-13 07:08 | P.PNIM_ITS ---
Subjective Subjective Date of Service: 07/13/22 Interval History: f/u for pneumonia, dysphagia interval history: no sob, upset at not able to eat Review of Systems no fever or chills, no sob, trouble swallowing Physical Exam Vital Signs: Vital Signs: Last Vital Signs Temp 98.5 F 07/13/22 03:53 Pulse 99 07/13/22 03:53 Resp 14 07/13/22 03:53 BP 128/57 L 07/13/22 03:53 Pulse Ox 97 07/13/22 03:53 O2 Del Method 07/13/22 03:53 BMI result Body Mass Index 30.0 Const: Other: General: AO X 3, no acute distress Resp: CTA bilateral CVS: S1,S2,RRR GI: +BS, NT, no distention Skin: No rash Neuro: motor grossly intact Psych: appropriate affect Objective Data Active Medications Acetaminophen (Acetaminophen 325 Mg Tablet) 650 mg PO Q6H PRN PRN Reason: Pain, Mild (Pain Scale 1-3) Last Admin: 07/10/22 17:15 Dose: 650 mg Documented By: JENNIFER Acetaminophen (Acetaminophen 325 Mg Tablet) 650 mg PO TID PRN PRN Reason: headache Albuterol/Ipratropium (Albuterol/Iprat 2.5/0.5mg 3 Ml Ampul.Neb) 3 ml INHALE RQ4H PRN PRN Reason: wheezing Cyanocobalamin (Cyanocobalamin (Vitamin B-12) 1,000 Mcg Tablet) 1,000 mcg PO DAILY [facility] Last Admin: 07/12/22 11:42 Dose: Not Given Documented By: SARAH Non-Admin Reason: NPO Docusate Sodium (Docusate Sodium 100 Mg Capsule) 100 mg PO DAILY PRN PRN Reason: Constipation Ferrous Sulfate (Ferrous Sulfate 324 Mg Tablet.Dr) 324 mg PO DAILY [facility] Last Admin: 07/12/22 11:42 Dose: Not Given Documented By: SARAH Non-Admin Reason: NPO Gabapentin (Gabapentin 400 Mg Capsule) 400 mg PO TID [facility] Last Admin: 07/12/22 19:29 Dose: Not Given Documented By: CROW Non-Admin Reason: NPO Guaifenesin/Dextromethorphan (Guaifenesin Dm 100/10/5 Ml 5 Ml Syrup) 5 ml PO Q4H PRN PRN Reason: cough Last Admin: 07/12/22 08:15 Dose: 5 ml Documented By: SARAH Ampicillin Sodium/Sulbactam (Sodium 3 gm/ Sodium Chloride) 100 mls @ 200 mls/hr IV Q6H [facility] Last Infusion: 07/13/22 01:42 EST Dose: 0 mls/hr Documented By: CROW Dextrose/Sodium Chloride (D51/2ns) 1,000 mls @ 100 mls/hr IVCONT .Q10H [facility] Last Admin: 07/13/22 01:26 EDT Dose: 100 mls/hr Documented By: CROW Levothyroxine Sodium (Levothyroxine Sodium 75 Mcg Tablet) 75 mcg PO DAILY@0600 [facility] Last Admin: 07/13/22 05:53 Dose: Not Given Documented By: CORW Non-Admin Reason: NPO Morphine Sulfate (Morphine Sulfate 2 Mg/Ml Cartridge) 1 mg IVPUSH Q4H PRN; Protocol PRN Reason: Pain, Severe (Pain Scale 7-10) Last Admin: 07/13/22 05:27 Dose: 1 mg Documented By: CROW Non-Formulary Medication (Umeclidinium-Vilanterol [Anoro Ellipta]) 1 inhalation INHALE DAILY [facility] Omeprazole (Omeprazole 40 Mg Capsule.Dr) 40 mg PO DAILY@0630 [facility] Last Admin: 07/13/22 05:53 Dose: Not Given Documented By: CROW Non-Admin Reason: NPO Ondansetron HCl (Ondansetron Hcl 4 Mg/2 Ml Vial) 4 mg IVPUSH Q8H PRN PRN Reason: Nausea and Vomiting Pantoprazole Sodium (Pantoprazole Sodium 40 Mg/10 Ml Vial) 40 mg IVPUSH DAILY@0630 [facility] Last Admin: 07/13/22 05:28 Dose: 40 mg Documented By: CROW Sodium Chloride (0.9 % Sodium Chloride Flush 3 Ml Syringe) 3 ml IVFLUSH QSHIFT [facility] Last Admin: 07/13/22 00:10 Dose: Not Given Documented By: CROW Non-Admin Reason: IV Running Labs CBC & Chem 7: 07/11/22 06:13 07/11/22 06:13 Microbiology Microbiology Results: Microbiology 07/10/22 07:33 Blood Culture - Preliminary Blood - Venous No growth after 48 hours. 07/10/22 07:33 Blood Culture - Preliminary Blood - Venous No growth after 48 hours. Assessment and Plan (1) Community acquired pneumonia: Status: Acute (2) Aspiration into airway: Status: Acute (3) Acute anemia: Status: Acute (4) Lumbar radiculitis: Status: Acute Plan 71-year-old male with previous medical history of anemia, history of throat cancer status post radiation therapy and esophageal stricture presents the hospital with complaints of chest pain with cough found to have acute anemia. #. Community-acquired pneumonia with concern for aspiration -IV Unasyn D4 -Was evaluated by speech with recommendation for NPO at this time -will discuss PEG with him #. Acute symptomatic on chronic anemia -Stool occult positive in ER. -s/p PRBC transfusion. Follow H&H. GI seen and he is declining endoscopy at this time, will reassess #. Abnormal CT chest -Will need follow up imaging to rule out malignancy once acute infection resolves in this patient with history of cancer. #. Radiculopathy--CT neck no mass #. Hypothyroidism -on synthroid DVT prophylaxis : SCDs Diet; npo until GI evaluation Full code need for inaptient stay: ognoing work up for dysphagia, CAP treatment with IV Abx, NPO d/t dysphagia and may need a PEG Quality Stroke Does the patient have a stroke diagnosis?: No VTE Prior VTE?: No VTE Risk Level:: Medical - moderate - high VTE Device Contraindication: N/A - Device Ordered VTE Drug Contraindication: Treatment Not Indicated
[2022-07-13 07:19] VITALS: BP 137/80; PULSE 89; RESP 18; TEMP 36.4; O2SAT 99
[2022-07-13 08:26] LABS: Hematocrit 27.5 % (42.0-52.0); Hemoglobin 8.9 g/dl (14.0-18.0); Mean Corpuscular HGB Conc 32.4 g/dl (31.0-36.0); Mean Corpuscular Hemoglobin 29.4 pg (27.0-33.0); Mean Corpuscular Volume 90.8 fL (80.0-98.0); Mean Platelet Volume 9.6 fL (9.4-12.4); Platelet Count 409 X10*3/uL (160-400); Red Blood Count 3.03 X10*6/uL (4.60-5.80); Red Cell Distribution Width 16.7 % (11.0-16.0); White Blood Count 6.7 X10*3/uL (4.8-10.8)
[2022-07-13 12:00] VITALS: BP 145/67; PULSE 88; RESP 18; TEMP 37; O2SAT 99
[2022-07-13] MEDS: Lidocaine 4 % Patch ADH..PATCH 1 PATCH TRANSDERMA (14:12)
[2022-07-13 14:58] VITALS: BP 128/66; PULSE 80; RESP 18; TEMP 36.8; O2SAT 98
[2022-07-13 18:55] VITALS: BP 143/66; PULSE 81; RESP 18; TEMP 36.7; O2SAT 99
[2022-07-13] MEDS: 0.9 % Sodium Chloride Flush 3 ML SYRINGE IVFLUSH (20:00)
[2022-07-13 23:56] VITALS: BP 137/67; PULSE 76; RESP 18; TEMP 37; O2SAT 98
[2022-07-14] VITALS (7 sets, daily range): BP systolic 120–153; BP diastolic 56–74; PULSE 75–89; RESP 16–18; TEMP 36.1–37.1; O2SAT 97–99
[2022-07-14] MEDS: Morphine Sulfate 2 MG/ML CARTRIDGE 1 MG IVPUSH ×3 (02:02→20:15)
[2022-07-14] MEDS: Ampicillin Sodium/Sulbactam Na 3 GM in 0.9 % Sodium Chloride 100 ML IV ×4 (02:03→20:05)
[2022-07-14] MEDS: 0.9 % Sodium Chloride Flush 3 ML SYRINGE IVFLUSH ×2 (07:45→20:05)
[2022-07-14] MEDS: Lidocaine 4 % Patch ADH..PATCH 1 PATCH TRANSDERMA (09:35)
--- NOTE | 2022-07-14 10:13 | HO.PM.IMPN ---
Subjective Subjective Date of Service: 07/14/22 Interval History: Offers no acute complaints is agreeable to PEG tube placement is NPO noted to be coughing, denies chest pain, no palpitations, no fevers, no chills no other acute issues overnight Review of Systems GANG SAWYER no headache no dizziness CVS no chest pain, no palpitations GI no nausea, no vomiting Skin no rash Review of Systems: Yes all other systems are reviewed and are negative Physical Exam Vital Signs: Vital Signs: Last Vital Signs Temp 97.6 F 07/14/22 07:46 Pulse 89 07/14/22 07:46 Resp 18 07/14/22 07:46 BP 120/56 L 07/14/22 07:46 Pulse Ox 98 07/14/22 07:46 O2 Del Method 07/14/22 07:46 BMI result Body Mass Index 30.0 Const: Other: General awake aler t x3, lying in bed in no distress Ne ck supple, no JVD CVS Regular rate a nd rhythm, S1-S2 h eard Respiratory c oarse breath sound s bilaterally, no wheezing or crackl es appreciated Abd omen soft ,nontend er, bowel sounds a udible no guarding , no rigidity Neur o awake, alert and oriented to self, place, time and p erson ; no focal m otor deficit Psych : Normal mood No p edal edema Objective Data Active Medications Acetaminophen (Acetaminophen 325 Mg Tablet) 650 mg PO Q6H PRN PRN Reason: Pain, Mild (Pain Scale 1-3) Last Admin: 07/10/22 17:15 Dose: 650 mg Documented By: COOPENaomi Acetaminophen (Acetaminophen 325 Mg Tablet) 650 mg PO TID PRN PRN Reason: headache Albuterol/Ipratropium (Albuterol/Iprat 2.5/0.5mg 3 Ml Ampul.Neb) 3 ml INHALE RQ4H PRN PRN Reason: wheezing Cyanocobalamin (Cyanocobalamin (Vitamin B-12) 1,000 Mcg Tablet) 1,000 mcg PO DAILY [facility] Last Admin: 07/14/22 09:38 Dose: Not Given Documented By: TOMI Non-Admin Reason: NPO Docusate Sodium (Docusate Sodium 100 Mg Capsule) 100 mg PO DAILY PRN PRN Reason: Constipation Ferrous Sulfate (Ferrous Sulfate 324 Mg Tablet.) 324 mg PO DAILY [facility] Last Admin: 07/14/22 09:39 Dose: Not Given Documented By: TOMI Non-Admin Reason: NPO Gabapentin (Gabapentin 400 Mg Capsule) 400 mg PO TID [facility] Last Admin: 07/14/22 09:39 Dose: Not Given Documented By: TOMI Non-Admin Reason: NPO Guaifenesin/Dextromethorphan (Guaifenesin Dm 100/10/5 Ml 5 Ml Syrup) 5 ml PO Q4H PRN PRN Reason: cough Last Admin: 07/12/22 08:15 Dose: 5 ml Documented By: SARAH Ampicillin Sodium/Sulbactam (Sodium 3 gm/ Sodium Chloride) 100 mls @ 200 mls/hr IV Q6H [facility] Last Infusion: 07/14/22 09:40 Dose: 0 mls/hr Documented By: TOMI Levothyroxine Sodium (Levothyroxine Sodium 75 Mcg Tablet) 75 mcg PO DAILY@0600 [facility] Last Admin: 07/14/22 06:12 Dose: Not Given Documented By: BABATUNDE Non-Admin Reason: NPO Lidocaine (Lidocaine 4 % Patch Adh..Patch) 1 patch TRANSDERMA DAILY [facility]; Protocol Last Admin: 07/14/22 09:35 Dose: 1 patch Documented By: TOMI Morphine Sulfate (Morphine Sulfate 2 Mg/Ml Cartridge) 1 mg IVPUSH Q4H PRN; Protocol PRN Reason: Pain, Severe (Pain Scale 7-10) Last Admin: 07/14/22 02:02 Dose: 1 mg Documented By: BABATUNDE Pt Own([Anoro Ellipta] 62.5-25 Mcg /Actuation Bl) 1 inhalation INHALE RDAILY [facility] Omeprazole (Omeprazole 40 Mg Capsule.Dr) 40 mg PO DAILY@0630 [facility] Last Admin: 07/14/22 06:12 Dose: Not Given Documented By: BABATUNDE Non-Admin Reason: NPO Ondansetron HCl (Ondansetron Hcl 4 Mg/2 Ml Vial) 4 mg IVPUSH Q8H PRN PRN Reason: Nausea and Vomiting Sodium Chloride (0.9 % Sodium Chloride Flush 3 Ml Syringe) 3 ml IVFLUSH QSHIFT [facility] Last Admin: 07/14/22 07:45 Dose: 3 ml Documented By: TOMI Labs CBC & Chem 7: 07/13/22 07:29 07/11/22 06:13 Assessment and Plan (1) Community acquired pneumonia: Status: Acute (2) Aspiration into airway: Status: Acute (3) Acute anemia: Status: Acute (4) Lumbar radiculitis: Status: Acute Plan 71-year-old male with previous medical history of anemia, history of throat cancer status post radiation therapy and esophageal stricture presents the hospital with complaints of chest pain with cough found to have acute anemia. #. Community-acquired pneumonia with concern for aspiration -IV Unasyn D5/7, persistent coughing, no fevers finger oximetry stable on room air # dysphagia modified barium swallow showed laryngeal penetration and tracheal aspiration with all consistencies Patient NPO , he is agreeable for PEG tube placement, case discussed with Dr. Devlin he recommend surgical consultation for PEG tube placement, since difficult to do endoscopy due to history of esophageal strictures #. Acute symptomatic anemia on chronic anemia Likely due to epistaxis and nutritional deficiency due to decreased by mouth intake no overt GI bleed noted -Stool occult positive in ER. -s/p PRBC transfusion. Follow H&H. GI seen and he is declining endoscopy at this time, will reassess #. Abnormal CT chest with dense opacity in the right upper lobe with additional heterogeneous consolidation in the adjacent superior right lower lobe suspicious for pneumonia though malignancy is difficult to exclude -Will need follow up imaging to rule out malignancy once acute infection resolves in this patient with history of cancer. #. Radiculopathy--CT neck no mass #. Hypothyroidism -on synthroid DVT prophylaxis : SCDs Diet; npo Full code need for inaptient stay: Since NPO need back tube placement and is on IV antibiotics Quality Stroke Does the patient have a stroke diagnosis?: No VTE Prior VTE?: No VTE Risk Level:: Medical - moderate - high VTE Device Contraindication: N/A - Device Ordered VTE Drug Contraindication: Treatment Not Indicated
--- NOTE | 2022-07-14 11:03 | P.CONGS_ITS ---
History of Present Illness Consult details Consult date: 07/14/22 <Nneka Haney PA-C - Last Filed: 07/14/22 11:56> Reason for consult: other (PEG tube) <TALYA Pierre Last Filed: 07/14/22 11:56> Requesting physician: Alis Barragan <TALYA Pierre Last Filed: 07/14/22 11:56> Narrative: 71-year-old male with previous medical history of anemia, history of throa t cancer status post radiation therapy and esophageal stricture requiring multiple dilatations who presented to the ED with complaints of dizziness and admitted for anemia, found to have aspiration PNA. Patient being treated with unasyn, day 5. Seen by speech therapy and found to have dysphagia and it was thought he is unlikely to meet nutritional needs by mouth based on degree of impairment. He has been recommended to have feeding tube in the past but has declined. He now agrees. Last upper endoscopy was 10/[address] Payan- stricture noted at 25 cm with tight upper esophageal sphincter, dilated to max 12 mm with tear and blood noted. Still unable to get a regular EGD scope past and Olympus ultra slim used. He was seen by GI this admission for his anemia, positive stool occult and it w as thought it was a combination of nutritional deficiency related to decreased PO intake and episode of epistaxis. <Nneka Haney PA-C Last Filed: 07/14/22 11:56> Review of Systems Constitutional: Constitutional: Denies fever(s) and Denies malaise <TALYA Pierre Last Filed: 07/14/22 11:56> ENT: Reports dizziness (on admission) <TALYA Pierre Last Filed: 07/14/22 11:56> Cardiovascular: Cardiovascular: Denies chest pain, Denies palpitations and Denies dyspnea <TALYA Pierre Last Filed: 07/14/22 11:56> Respiratory: Respiratory: Denies dyspnea <TALYA Pierre Last Filed: 07/14/22 11:56> Gastrointestinal: Gastrointestinal: Denies abdominal pain, Denies change in bowel habits, Denies diarrhea, Denies nausea and Denies vomiting <Nneka Haney PA-C - Last Filed: 07/14/22 11:56> Genitourinary: Genitourinary: Denies hematuria and Denies difficulty urinating <Nneka Haney PA-C - Last Filed: 07/14/22 11:56> Integumentary/Breasts: Skin/Breast: Denies change in pigmentation and Denies rash <Nneka Haney PA-C - Last Filed: 07/14/22 11:56> Neurologic: Reports dizziness (on admission) <Nneka Haney PA-C - Last Filed: 07/14/22 11:56> Endocrine: Endocrine: Denies palpitations <Nneka Haney PA-C - Last Filed: 07/14/22 11:56> PMF Past Medical History Medical History: Medical History Anemia Aortic aneurysm Arthritis Back pain Cancer COPD (chronic obstructive pulmonary disease) COVID-19 Depression Difficulty swallowing Elevated cholesterol Esophageal stricture GERD (gastroesophageal reflux disease) History of chemotherapy History of epistaxis HTN (hypertension) Hx of radiation therapy Osteoarthritis of left shoulder Post laminectomy syndrome Pulmonary nodule Thyroid disease <Nneka Haney PA-C - Last Filed: 07/14/22 11:56> Functional capacity: independent ambulation <Graciela Mendez MD - Last Filed: 07/15/22 07:48> Family History Family History: Family History Father Brain cancer Mother CVD (cardiovascular disease) Maternal Aunt Diabetes <Nneka Haney PA-C - Last Filed: 07/14/22 11:56> Surgical History Surgical History: Surgical History H/O colonoscopy History of back surgery History of esophagogastroduodenoscopy (EGD) History of nasal surgery History of transurethral resection of prostate <TALYA Pierre Last Filed: 07/14/22 11:56> Social History Social History: Social History Household Members: Spouse Household Members Other:: 3 Housing: Apartment Do you presently have visiting nurse or other home services: No Alcohol intake: never Patient Tobacco Use Status: Former Tobacco user Quit Date: 40 years ago Tobacco use type: Cigarette Cigarette Packs Per Day: 3 Cigarettes Per Day: 60.0 Years Smoked: 25 e-Cigarette/Vaping Use: Never Used Second Hand Smoke Exposure: No Advance Directives Date on File: 03/04/21 service: No Current occupational status: disabled <Nneka Haney PA-C - Last Filed: 07/14/22 11:56> Meds Allergies/Adverse reactions: Allergies Allergy/AdvReac Type Severity Reaction Status Date / Time Penicillins Allergy Rash Verified 06/27/22 09:11 aspirin [ASA] AdvReac Intermediate GI BLEED, Verified 06/27/22 09:11 Headaches <Nneka Haney PA-C - Last Filed: 07/14/22 11:56> Active Medications: Current Medications Acetaminophen (Acetaminophen 325 Mg Tablet) 650 mg PO Q6H PRN PRN Reason: Pain, Mild (Pain Scale 1-3) Last Admin: 07/10/22 17:15 Dose: 650 mg Acetaminophen (Acetaminophen 325 Mg Tablet) 650 mg PO TID PRN PRN Reason: headache Albuterol/Ipratropium (Albuterol/Iprat 2.5/0.5mg 3 Ml Ampul.Neb) 3 ml INHALE RQ4H PRN PRN Reason: wheezing Cyanocobalamin (Cyanocobalamin (Vitamin B-12) 1,000 Mcg Tablet) 1,000 mcg PO DAILY [facility] Last Admin: 07/14/22 09:38 Dose: Not Given Docusate Sodium (Docusate Sodium 100 Mg Capsule) 100 mg PO DAILY PRN PRN Reason: Constipation Ferrous Sulfate (Ferrous Sulfate 324 Mg Tablet.Dr) 324 mg PO DAILY [facility] Last Admin: 07/14/22 09:39 Dose: Not Given Gabapentin (Gabapentin 400 Mg Capsule) 400 mg PO TID [facility] Last Admin: 07/14/22 09:39 Dose: Not Given Guaifenesin/Dextromethorphan (Guaifenesin Dm 100/10/5 Ml 5 Ml Syrup) 5 ml PO Q4H PRN PRN Reason: cough Last Admin: 07/12/22 08:15 Dose: 5 ml Ampicillin Sodium/Sulbactam (Sodium 3 gm/ Sodium Chloride) 100 mls @ 200 mls/hr IV Q6H [facility] Last Infusion: 07/14/22 09:40 Dose: Infused Levothyroxine Sodium (Levothyroxine Sodium 75 Mcg Tablet) 75 mcg PO DAILY@0600 [facility] Last Admin: 07/14/22 06:12 Dose: Not Given Lidocaine (Lidocaine 4 % Patch Adh..Patch) 1 patch TRANSDERMA DAILY [facility]; Protocol Last Admin: 07/14/22 09:35 Dose: 1 patch Morphine Sulfate (Morphine Sulfate 2 Mg/Ml Cartridge) 1 mg IVPUSH Q4H PRN; Protocol PRN Reason: Pain, Severe (Pain Scale 7-10) Last Admin: 07/14/22 02:02 Dose: 1 mg Pt Own([Anoro Ellipta] 62.5-25 Mcg /Actuation Bl) 1 inhalation INHALE RDAILY [facility] Omeprazole (Omeprazole 40 Mg Capsule.Dr) 40 mg PO DAILY@0630 [facility] Last Admin: 07/14/22 06:12 Dose: Not Given Ondansetron HCl (Ondansetron Hcl 4 Mg/2 Ml Vial) 4 mg IVPUSH Q8H PRN PRN Reason: Nausea and Vomiting Sodium Chloride (0.9 % Sodium Chloride Flush 3 Ml Syringe) 3 ml IVFLUSH QSHIFT [facility] Last Admin: 07/14/22 07:45 Dose: 3 ml <Nneka Haney PA-C - Last Filed: 07/14/22 11:56> Home medications: Home Medications Medication Instructions Recorded Confirmed Last Taken Type cyanocobalamin (vitamin B-12) 1 tab PO DAILY 06/21/20 07/10/22 03/17/22 History 1,000 mcg tablet (Vitamin B-12) umeclidinium 62.5 mcg-vilanterol 1 inh inhalation DAILY 06/21/20 07/10/22 03/17/22 History 25 mcg/actuation powdr for inhalation (Anoro Ellipta) gabapentin 400 mg capsule 1 cap PO TID 03/04/21 07/10/22 03/17/22 History levothyroxine 75 mcg tablet 1 tab PO DAILY@0600 03/04/21 07/10/22 03/17/22 History acetaminophen 500 mg tablet 500 mg PO TID PRN headache 05/14/21 07/10/22 09/22/21 History albuterol sulfate 90 mcg/actuation 2 puff PO Q4H PRN for dyspnea 03/18/22 07/10/22 Unknown History aerosol inhaler omeprazole 40 mg capsule,delayed 40 mg PO DAILY 03/18/22 07/10/22 03/17/22 History release ferrous sulfate 325 mg (65 mg 1 tab PO DAILY 04/07/22 07/10/22 03/17/22 History iron) tablet (FeroSul) levocetirizine 5 mg tablet 1 tab PO DAILY PRN Allergic 07/10/22 07/10/22 Unknown History Symptoms multivitamin 1 tab PO DAILY 07/10/22 07/10/22 Unknown History naproxen 500 mg tablet,delayed 500 mg PO BID 07/10/22 07/10/22 Unknown History release <TALYA Pierre Last Filed: 07/14/22 11:56> Physical Exam Vital Signs: Vital Signs: Last Vital Signs Temp 97.6 F 07/14/22 07:46 Pulse 89 07/14/22 07:46 Resp 18 07/14/22 07:46 BP 120/56 L 07/14/22 07:46 Pulse Ox 98 07/14/22 07:46 O2 Del Method 07/14/22 07:46 BMI result Body Mass Index 30.0 <TALYA Pierre Last Filed: 07/14/22 11:56> Const: General: comfortable, no acute distress and alert <TALYA Pierre Last Filed: 07/14/22 11:56> Nutritional Appearance: thin and underweight <TALYA Pierre Last Filed: 07/14/22 11:56> Orientation/consciousness: patient oriented x3 <TALYA Pierre Last Filed: 07/14/22 11:56> Resp: Effort & Inspection: normal respiratory effort <TALYA Pierre Last Filed: 07/14/22 11:56> Cardio: Rate: regular rate <TALYA Pierre Last Filed: 07/14/22 11:56> GI: Inspection: No distended <Nneka WilkinsPERNELL parrishMissael - Last Filed: 07/14/22 11:56> Palpation (GI): Soft to palpation, nontender, no guarding and not rigid <Nneka AlcantarPERNELL richardsonMissael - Last Filed: 07/14/22 11:56> Percussion: Yes normal to percussion <Nneka AlcantarTALYA richardson - Last Filed: 07/14/22 11:56> Skin: General skin exam: no rashes or lesions noted <Nneka AlcantarPERNELL richardsonMissael - Last Filed: 07/14/22 11:56> Neuro: General: patient oriented x3 and moves all extremities <Nneka Haney PA-C - Last Filed: 07/14/22 11:56> Results Labs Result diagrams: : 07/15/22 06:30 07/11/22 06:13 <Nneka Haney PA-C - Last Filed: 07/14/22 11:56> Labs: All other labs normal. <PERNELL PierreMissael - Last Filed: 07/14/22 11:56> Assessment and Plan (1) Acute anemia: Status: Acute <Nneka Haney PA-C - Last Filed: 07/14/22 11:56> (2) Aspiration into airway: Status: Acute <PERNELL PierreMissael - Last Filed: 07/14/22 11:56> I have reviewed the patient's history. He has had radiation in the past for throat cancer. He had subsequent radiation induced strictures of the upper esophagus. He has a dysphagia because of this and was referred to me for PEG tube placement. It may be best to attempt to dilate the stricture again to be able to go PEG tube placement. If this is not feasible, then we may have to do an open surgical gastrostomy tube placement. I have reached out to Dr. Payan to see if an attempt esophageal dilatation to allow peg tube placement may be appropriate. I have seen and examined the patient independently. <Shailesh Frankel MD - Last Filed: 07/15/22 10:47> 71 year old male with history of throat cancer status post radiation therapy and esophageal stricture requiring multiple dilatations admitted for anemia, aspiration PNA. He is thought unlikely to meet nutritional needs by mouth based on degree of impairment of his dysphagia and PEG tube was requested. PEG tube can be attempted but it was discussed with the patient that given his esophageal stricture and inability to get a regular EGD scope past on prior endoscopies, it may not be able to be performed without repeat dilatation. He has refused repeat EGD and dilation as he reports only temporary relief of dysphagia? for 1-2 weeks after. If this is the case, open gastric tube placement would be necessary. He understands this and agrees to proceed with PEG tube placement. Will add onto the OR schedule for tomorrow. <Nneka Haney PA-C - Last Filed: 07/14/22 11:56> Procedures Date of Service Date of Service: 07/14/22 <Nneka Haney PA-C - Last Filed: 07/14/22 11:56>
--- NOTE | 2022-07-14 12:30 | MHC.SLORD ---
Speech Language Pathology Order Status: Pt had MBSS showing aspiration. Per RN, PEG tube was just ordered.
--- NOTE | 2022-07-14 13:54 | MHC.SL.SWA ---
Speech Pathologist Impression: Profound oropharyngeal dysphagia Risk of Aspiration Due to: History of Pneumonia Poor PO Intake Dysphasia Diet Status: No Change Liquid Consistency and Strategies for Safe Swallow: Liquid Intake Recommendation: NPO Solid Food Consistency: Dietary Recommendations: NPO Additional Modifications to Solid Foods: Ensure precautions to reduce risk of microaspiration- Rigid daily oral care routine and elevate head of bed at least 30 degrees. Oral Medication Intake: NPO Please contact the pharmacy regarding appropriate crushable or liquid drug formulations that are available whenever modified delivery is recommended. Recommendation for Speech: Inpatient Speech Therapy Speech Therapy (Outpatient vs. [facility]) Modified Barium Swallow Study - Outpatient Comment: PLAN: Intake Recommendations: Route: NPO/Alternate Route Diet Grade: IDDSI Levels: Liquid Consistencies: IDDSI Levels: Post-Study Functional Oral Intake Scale (FOIS): 1- No oral intake MBSS completed 07/11. Pt presents with PROFOUND OROPHARYNGEAL DYSPHAGIA with compromised airway protection. No epiglottic inversion and no laryngeal vestibular closure resulted in wide open airway. This exam revealed with all consistencies penetration with subsequent aspiration. Based on objective results of this exam alone, recommend NPO as pt is at high risk of aspiration. Recommend speech therapy for the treatment of dysphagia during hospitalization and at the next level of care with repeat MBSS post-treatment to monitor for any improvement or potential upgrade in recommendations. Recommend consultations with G.I. specialist and dietitian to assess appropriate means of nutritional intake. Ensure precautions to reduce risk of microaspiration- Rigid daily oral care routine and elevate head of bed at least 30 degrees. The final treatment plan for this patient should rest with their medical care team. Additional recommendations should be considered with the totality of the Pt in mind. Suggested Referrals: The patient might benefit from a referral to: Gastroenterology, Nutrition Services Therapy Recommendations: Therapy will be continued Prognosis for Improvement: The prognosis for the patient to meet nutritional needs by mouth is poor based on degree of impairment. Frequency/Duration: Date Range for Service Req: Timeline to reassess: 3 months English Instructor Clinican/Clinical Fellow: No Supervisory Statement: I have reviewed and agree with the student/clinical fellow's documentation: N/A Speech Language Pathologist: Marija Keane M.A., CCC-VAN HELPER
[2022-07-14] MEDS: Lactated Ringers 1,000 ML 100 ML IVCONT (14:41)
--- NOTE | 2022-07-14 15:17 | MHC.CM.PN ---
PER HOSPITALIST PLAN IS FOR PEG TUBE, NO PLAN FOR D/C AT THIS TIME, CM WILL CONT TO FOLLOW D/C NEEDS.
--- NOTE | 2022-07-14 17:07 | PM.EVENT ---
Event Note Date of Service: 07/14/22 Event Note: case reviewed with Dr Payan - he feels it is unlikely that PEG doable even with balloon dilatation as stricture has been worsening I had long discussion with pt with regards to this I explained to him that we will plan on doing PEG, but we will likely need to do open surgical gastrostomy I explained to him technique of each procedure I reviewed risks incl but not limited to bleeding, infections, tube dislodgement, leak around tube, bowel injury, inherent anesthesia risks he says he will agree to procedure I have discussed the above with his daughter Meredith [phone]
[2022-07-15] VITALS (19 sets, daily range): BP systolic 71–154; BP diastolic 42–77; PULSE 67–108; RESP 15–18; TEMP 36–36.7; O2SAT 96–100
[2022-07-15] MEDS: Ampicillin Sodium/Sulbactam Na 3 GM in 0.9 % Sodium Chloride 100 ML IV ×3 (01:22→22:34)
[2022-07-15] MEDS: Lactated Ringers 1,000 ML 100 ML IVCONT ×2 (01:26→17:37)
[2022-07-15 06:36] LABS: MANUAL DIFF FLAG NO
[2022-07-15 06:39] LABS: Basophils Percent Auto 0.8 % (0-2); Eosinophils Absolute Auto 0.1 X10*3/uL (0.0-0.4); Hematocrit 27.3 % (42.0-52.0); Hemoglobin 9.1 g/dl (14.0-18.0); Imm Gran Abs Auto 0.03 X10*3/uL (0.00-0.03); Imm Gran Pct Auto 0.6 % (0.0-0.4); Lymphocytes Absolute Auto 0.4 X10*3/uL (1.2-4.9); Mean Corpuscular HGB Conc 33.3 g/dl (31.0-36.0); Mean Corpuscular Hemoglobin 30.3 pg (27.0-33.0); Mean Platelet Volume 9.6 fL (9.4-12.4); Monocytes Absolute Auto 0.7 X10*3/uL (0.1-1.2); Monocytes Percent Auto 13.6 % (2-11); Neutrophils Absolute Auto 3.6 x10*3/uL (2.0-8.3); Platelet Count 405 X10*3/uL (160-400); Red Cell Distribution Width 16.5 % (11.0-16.0); White Blood Count 4.9 X10*3/uL (4.8-10.8)
--- NOTE | 2022-07-15 07:48 | HO.ANESPROP2 ---
[facility] Active Problems Active Problems: All Active Problems (Updated 07/10/22 @ 11:44 by Frederic Saul MD) Acute anemia (Acute) Aspiration into airway (Acute) Community acquired pneumonia (Acute) Normocytic anemia (Acute) Chest pain (Acute) Dyspnea (Acute) Lumbar spondylosis (Acute) Cluneal neuropathy (Acute) Left hip pain (Acute) Fibromyalgia (Acute) Osteoarthritis (Acute) Lumbar radiculitis (Acute) Post laminectomy syndrome (Acute) Primary osteoarthritis of left knee (Acute) Pulmonary fibrosis (Acute) Pulmonary nodules (Acute) Syncope due to orthostatic hypotension (Acute) Anemia (Acute) Esophageal stricture (Acute) History of external beam radiation therapy (Acute) Precordial chest pain (Acute) Atherosclerotic cardiovascular disease (Acute) Ascending aortic aneurysm (Acute) Osteoarthritis of left shoulder (Acute) Past Medical History Medical History Anemia Aortic aneurysm Arthritis Back pain Cancer COPD (chronic obstructive pulmonary disease) COVID-19 Depression Difficulty swallowing Elevated cholesterol Esophageal stricture GERD (gastroesophageal reflux disease) History of chemotherapy History of epistaxis HTN (hypertension) Hx of radiation therapy Osteoarthritis of left shoulder Post laminectomy syndrome Pulmonary nodule Thyroid disease Functional capacity: independent ambulation Family History Family History Father Brain cancer Mother CVD (cardiovascular disease) Maternal Aunt Diabetes Family history of problems with anesthesia: No Surgical History Surgical History H/O colonoscopy History of back surgery History of esophagogastroduodenoscopy (EGD) History of nasal surgery History of transurethral resection of prostate History of Problems with Anesthesia: No Social History Social History Household Members: Spouse Household Members Other:: 3 Housing: Apartment Do you presently have visiting nurse or other home services: No Alcohol intake: never Patient Tobacco Use Status: Former Tobacco user Quit Date: 40 years ago Tobacco use type: Cigarette Cigarette Packs Per Day: 3 Cigarettes Per Day: 60.0 Years Smoked: 25 e-Cigarette/Vaping Use: Never Used Second Hand Smoke Exposure: No Advance Directives Date on File: 03/04/21 service: No Current occupational status: disabled Meds Allergies Allergy/AdvReac Type Severity Reaction Status Date / Time Penicillins Allergy Rash Verified 06/27/22 09:11 aspirin [ASA] AdvReac Intermediate GI BLEED, Verified 06/27/22 09:11 Headaches Active Medications: Current Medications Acetaminophen (Acetaminophen 325 Mg Tablet) 650 mg PO Q6H PRN PRN Reason: Pain, Mild (Pain Scale 1-3) Last Admin: 07/10/22 17:15 Dose: 650 mg Acetaminophen (Acetaminophen 325 Mg Tablet) 650 mg PO TID PRN PRN Reason: headache Albuterol/Ipratropium (Albuterol/Iprat 2.5/0.5mg 3 Ml Ampul.Neb) 3 ml INHALE RQ4H PRN PRN Reason: wheezing Cyanocobalamin (Cyanocobalamin (Vitamin B-12) 1,000 Mcg Tablet) 1,000 mcg PO DAILY [facility] Last Admin: 07/14/22 09:38 Dose: Not Given Docusate Sodium (Docusate Sodium 100 Mg Capsule) 100 mg PO DAILY PRN PRN Reason: Constipation Ferrous Sulfate (Ferrous Sulfate 324 Mg Tablet.Dr) 324 mg PO DAILY [facility] Last Admin: 07/14/22 09:39 Dose: Not Given Gabapentin (Gabapentin 400 Mg Capsule) 400 mg PO TID [facility] Last Admin: 07/14/22 20:09 Dose: Not Given Guaifenesin/Dextromethorphan (Guaifenesin Dm 100/10/5 Ml 5 Ml Syrup) 5 ml PO Q4H PRN PRN Reason: cough Last Admin: 07/12/22 08:15 Dose: 5 ml Ampicillin Sodium/Sulbactam (Sodium 3 gm/ Sodium Chloride) 100 mls @ 200 mls/hr IV Q6H [facility] Last Infusion: 07/15/22 01:52 Dose: Infused Cefazolin Sodium/Dextrose (Ancef) 2 gm in 50 mls @ 100 mls/hr IV PREOP ONE Stop: 07/15/22 13:08 Lactated Ringer's (Lr) 1,000 mls @ 100 mls/hr IVCONT .Q10H [facility] Last Admin: 07/15/22 01:26 Dose: 100 mls/hr Levothyroxine Sodium (Levothyroxine Sodium 75 Mcg Tablet) 75 mcg PO DAILY@0600 [facility] Last Admin: 07/15/22 05:11 Dose: Not Given Lidocaine (Lidocaine 4 % Patch Adh..Patch) 1 patch TRANSDERMA DAILY [facility]; Protocol Last Admin: 07/14/22 09:35 Dose: 1 patch Morphine Sulfate (Morphine Sulfate 2 Mg/Ml Cartridge) 1 mg IVPUSH Q4H PRN; Protocol PRN Reason: Pain, Severe (Pain Scale 7-10) Last Admin: 07/14/22 20:15 Dose: 1 mg Pt Own([Anoro Ellipta] 62.5-25 Mcg /Actuation Bl) 1 inhalation INHALE RDAILY [facility] Omeprazole (Omeprazole 40 Mg Capsule.Dr) 40 mg PO DAILY@0630 [facility] Last Admin: 07/15/22 05:11 Dose: Not Given Ondansetron HCl (Ondansetron Hcl 4 Mg/2 Ml Vial) 4 mg IVPUSH Q8H PRN PRN Reason: Nausea and Vomiting Sodium Chloride (0.9 % Sodium Chloride Flush 3 Ml Syringe) 3 ml IVFLUSH QSHIFT [facility] Last Admin: 07/14/22 20:05 Dose: 3 ml Home Medications Medication Instructions Recorded Confirmed Last Taken Type cyanocobalamin (vitamin B-12) 1 tab PO DAILY 06/21/20 07/10/22 03/17/22 History 1,000 mcg tablet (Vitamin B-12) umeclidinium 62.5 mcg-vilanterol 1 inh inhalation DAILY 06/21/20 07/10/22 03/17/22 History 25 mcg/actuation powdr for inhalation (Anoro Ellipta) gabapentin 400 mg capsule 1 cap PO TID 03/04/21 07/10/22 03/17/22 History levothyroxine 75 mcg tablet 1 tab PO DAILY@0600 03/04/21 07/10/22 03/17/22 History acetaminophen 500 mg tablet 500 mg PO TID PRN headache 05/14/21 07/10/22 09/22/21 History albuterol sulfate 90 mcg/actuation 2 puff PO Q4H PRN for dyspnea 03/18/22 07/10/22 Unknown History aerosol inhaler omeprazole 40 mg capsule,delayed 40 mg PO DAILY 03/18/22 07/10/22 03/17/22 History release ferrous sulfate 325 mg (65 mg 1 tab PO DAILY 04/07/22 07/10/22 03/17/22 History iron) tablet (FeroSul) levocetirizine 5 mg tablet 1 tab PO DAILY PRN Allergic 07/10/22 07/10/22 Unknown History Symptoms multivitamin 1 tab PO DAILY 07/10/22 07/10/22 Unknown History naproxen 500 mg tablet,delayed 500 mg PO BID 07/10/22 07/10/22 Unknown History release Exam Exam Date and Time: July 15, 2022 0748 Height,Weight and Vital Signs: Height 5 ft 7 in Weight 87 kg Last Vital Signs Temp 97.7 F 07/15/22 06:48 Pulse 87 07/15/22 06:48 Resp 18 07/15/22 06:48 BP 137/69 07/15/22 06:48 Pulse Ox 99 07/15/22 06:48 O2 Del Method 07/15/22 06:48 Pertinent Lab Results Pertinent Lab Results: Laboratory Tests 07/09/22 07/09/22 07/09/22 20:39 20:49 20:49 WBC 7.3 RBC 2.14 L D Hgb 6.5 L* D Hct 20.2 L* MCV 94.4 MCH 30.4 MCHC 32.2 RDW 15.9 Plt Count 453 H MPV 9.6 Immature Gran % (Auto) 0.8 H Neut % (Auto) 77.9 H Lymph % (Auto) 8.7 L [place] % (Auto) 10.9 Eos % (Auto) 1.2 Baso % (Auto) 0.5 Lymph # (Auto) 0.6 L [place] # (Auto) 0.8 Eos # (Auto) 0.1 Baso # (Auto) 0.0 Abs Immat Gran (auto) 0.06 H Absolute Neuts (auto) 5.7 Absolute Nucleated RBC 0.000 Nucleated RBC % (auto) 0.0 PT 13.9 H INR 1.2 H VBG pH VBG pCO2 VBG pO2 VBG HCO3 VBG O2 Saturation VBG Base Excess Sodium Potassium Chloride Carbon Dioxide Anion Gap BUN Creatinine Estim Creat Clear Calc Estimated GFR Random Glucose Lactic Acid Calcium Total Bilirubin AST ALT Alkaline Phosphatase Troponin I High Sens Total Protein Albumin Stool Occult Blood COVID-19 (VIC) Negative COVID-19 Clin Com See Note Blood Type Antibody Screen Crossmatch 07/09/22 07/09/22 07/09/22 20:49 20:49 20:55 WBC RBC Hgb Hct MCV MCH MCHC RDW Plt Count MPV Immature Gran % (Auto) Neut % (Auto) Lymph % (Auto) [place] % (Auto) Eos % (Auto) Baso % (Auto) Lymph # (Auto) [place] # (Auto) Eos # (Auto) Baso # (Auto) Abs Immat Gran (auto) Absolute Neuts (auto) Absolute Nucleated RBC Nucleated RBC % (auto) PT INR VBG pH 7.43 VBG pCO2 42 VBG pO2 36 VBG HCO3 28 H VBG O2 Saturation 49.0 VBG Base Excess 4.0 Sodium 139 Potassium 4.4 Chloride 100 Carbon Dioxide 26 Anion Gap 17 BUN 19 H Creatinine 0.78 Estim Creat Clear Calc 72.4 Estimated GFR > 60 Random Glucose 97 Lactic Acid Calcium 9.4 Total Bilirubin < 0.2 AST 25 ALT 28 Alkaline Phosphatase 94 D Troponin I High Sens 3.5 D Total Protein 7.6 Albumin 3.8 Stool Occult Blood COVID-19 (VIC) COVID-Pandoo TEK Blood Type Antibody Screen Crossmatch 07/09/22 07/09/22 07/10/22 21:34 21:57 05:59 WBC 7.8 RBC 2.99 L D Hgb 9.0 L D Hct 26.8 L D MCV 89.6 MCH 30.1 MCHC 33.6 RDW 16.2 H Plt Count 437 H MPV 10.1 Immature Gran % (Auto) 1.0 H Neut % (Auto) 80.7 H Lymph % (Auto) 5.4 L [place] % (Auto) 11.5 H Eos % (Auto) 0.9 Baso % (Auto) 0.5 Lymph # (Auto) 0.4 L [place] # (Auto) 0.9 Eos # (Auto) 0.1 Baso # (Auto) 0.0 Abs Immat Gran (auto) 0.08 H Absolute Neuts (auto) 6.3 Absolute Nucleated RBC 0.000 Nucleated RBC % (auto) 0.0 PT INR VBG pH VBG pCO2 VBG pO2 VBG HCO3 VBG O2 Saturation VBG Base Excess Sodium Potassium Chloride Carbon Dioxide Anion Gap BUN Creatinine Estim Creat Clear Calc Estimated GFR Random Glucose Lactic Acid Calcium Total Bilirubin AST ALT Alkaline Phosphatase Troponin I High Sens Total Protein Albumin Stool Occult Blood POSITIVE COVID-19 (VIC) COVID-Pandoo TEK Blood Type O Positive Antibody Screen NEGATIVE Crossmatch See Detail 07/10/22 07/10/22 07/11/22 05:59 07:33 06:13 WBC 8.7 RBC 3.36 L Hgb 9.9 L Hct 30.1 L MCV 89.6 MCH 29.5 MCHC 32.9 RDW 17.0 H Plt Count 446 H MPV 9.6 Immature Gran % (Auto) 0.7 H Neut % (Auto) 80.2 H Lymph % (Auto) 6.7 L [place] % (Auto) 10.9 Eos % (Auto) 1.0 Baso % (Auto) 0.5 Lymph # (Auto) 0.6 L [place] # (Auto) 1.0 Eos # (Auto) 0.1 Baso # (Auto) 0.0 Abs Immat Gran (auto) 0.06 H Absolute Neuts (auto) 7.0 Absolute Nucleated RBC 0.020 H Nucleated RBC % (auto) 0.2 PT INR VBG pH VBG pCO2 VBG pO2 VBG HCO3 VBG O2 Saturation VBG Base Excess Sodium 140 Potassium 5.0 Chloride 105 Carbon Dioxide 23 Anion Gap 17 BUN 14 Creatinine 0.65 Estim Creat Clear Calc 86.9 Estimated GFR > 60 Random Glucose 92 Lactic Acid 0.7 Calcium 8.6 D Total Bilirubin AST ALT Alkaline Phosphatase Troponin I High Sens Total Protein Albumin Stool Occult Blood COVID-19 (VIC) COVID-19 Clin Com Blood Type Antibody Screen Crossmatch 07/11/22 07/13/22 07/15/22 06:13 07:29 06:30 WBC 6.7 4.9 RBC 3.03 L 3.00 L Hgb 8.9 L 9.1 L Hct 27.5 L 27.3 L MCV 90.8 91.0 MCH 29.4 30.3 MCHC 32.4 33.3 RDW 16.7 H 16.5 H Plt Count 409 H 405 H MPV 9.6 9.6 Immature Gran % (Auto) 0.6 H Neut % (Auto) 74.0 H Lymph % (Auto) 9.0 L [place] % (Auto) 13.6 H Eos % (Auto) 2.0 Baso % (Auto) 0.8 Lymph # (Auto) 0.4 L [place] # (Auto) 0.7 Eos # (Auto) 0.1 Baso # (Auto) 0.0 Abs Immat Gran (auto) 0.03 Absolute Neuts (auto) 3.6 Absolute Nucleated RBC 0.000 0.000 Nucleated RBC % (auto) 0.0 0.0 PT INR VBG pH VBG pCO2 VBG pO2 VBG HCO3 VBG O2 Saturation VBG Base Excess Sodium 139 Potassium 4.2 Chloride 102 Carbon Dioxide 24 Anion Gap 17 BUN 10 Creatinine 0.72 Estim Creat Clear Calc 78.4 Estimated GFR > 60 Random Glucose 100 Lactic Acid Calcium 9.4 D Total Bilirubin AST ALT Alkaline Phosphatase Troponin I High Sens Total Protein Albumin Stool Occult Blood COVID-19 (VIC) COVID-19 Clin Com Blood Type Antibody Screen Crossmatch Airway Mallampati Class: IV TM Dist: <=3cm Neck ROM: Poor Denture: Upper and Lower Heart: RRR Lungs: CTA Assessment and Plan Final Anesthetic Review Family History of Problems with Anesthesia: No History of Problems with Anesthesia: No ASA Class: IV Final Preanesthetic Review: No Changes in Pt Med Stat, Meds/Allgs Chart Reviewed, Consent Obtained/Reviewed and Anes Risks/Benef Reviewed Patient Risk: High Procedure Risk: Low Anesthetic Plan Anesthetic Plan: GA Disposition: Standard PACU
--- NOTE | 2022-07-15 07:56 | PC.NURSE ---
Dr. Saenz during assessment, flushed iv line, ok per md + blood return positional.
--- NOTE | 2022-07-15 09:11 | W.PM.OPN ---
Operative Note Operative Note Date of Service: 07/15/22 Narrative: postop diagnosis: Esophageal stricture Postop diagnosis: Esophageal stricture Procedure: Open surgical gastrostomy tube placement Surgeon: Shailesh Frankel MD assistant research scientist: SALVADOR Haney The patient is a 71-year-old male undergone radiation for throat cancer in the past and had developed on upper esophageal stricture with subsequent dysphagia. He was referred for gastrostomy tube placement. He understood the technique of gastrostomy tube placement was aware of the risks, benefits, and alternatives . He was brought to the operating room placed supine under general anesthesia via endotracheal tube. During intubation, the oropharynx was noted to be very indurated and fibrotic from radiation changes so I decided to not proceed with tube placement and go ahead with open surgical gastrostomy. The abdomen was therefore prepped and draped in the usual sterile fashion. A surgical time-out was done. The patient received cefazolin 2 g IV preoperatively I made an upper midline incision on the skin using blade 15. And this carried down with cautery to the full-thickness of the skin subcutaneous fat with the fascia is incised. The peritoneum entered. The stomach was brought up examined. The greater and lesser curvature were identified. The transverse colon was pulled down away from this area. I proceeded to choose a point on the anterior stomach wall for the gastrostomy site. I made 2 pursestring sutures using Prolene 2 sutures. Once we were ready for gastrostomy incision, I proceeded to make the stab incision on the skin on the left upper quadrant and pulled the Fr 20 gastrostomy tube through this. The balloon was tested with normal saline and this appeared to be intact without any leak, I proceeded to then make my gastrostomy in the center of the 2 pursestrings. I positioned the gastrostomy tube into the stomach lumen through this gastrostomy incision.. I tightened both purse strings to invert the gastrostomy as well as the tube itself. The balloon was insufflated. The anterior wall of the stomach was pulled up to the abdominal wall. I secured this anterior stomach wall around the urostomy site to the peritoneum of the abdominal wall with 5 seromuscular sutures using interrupted Prolene 2-0. We then tested the gastrostomy tube by instilling normal saline through this and this appeared to be working without any resistance. There was no leak from the stomach or the gastrostomy site. I therefore closed the fascia with a running Maxon 1 stitch. I irrigated the subcutaneous layer. The skin was closed with skin monica. The area was infiltrated with Marcaine 0.5% postop for postop analgesia. Dressings were applied. The procedure was completed The patient tolerated the procedurewell. There were no immediate complications. Estimated blood loss was about 15 cc. The patient was then extubated without difficulty and transferred to the recovery room with stable vital signs.
--- NOTE | 2022-07-15 09:30 | P.BOP_ITS ---
Brief Operative Note Date of Service: 07/15/22 Pre-op diagnosis: dysphagia, esophageal strictures Post-op diagnosis: same Procedure: open gastrostomy tube placement Implants: 20F MIGUEL A G tube Surgeon: JERZY HERNANDEZ MD Anesthesia: UGOA Was an Field Operations Manager used for this Procedure?: No Field Operations Manager: Nneka Haney Estimated blood loss (mL): 10 Pathology: none sent Condition: stable Disposition: PACU
--- NOTE | 2022-07-15 09:35 | P.CDIC_ITS ---
CDI Concurrent Query Documentation Clarification: PHYSICIAN'S DOCUMENTATION REQUEST Date of Query: 07/15/22 0936 Patient Name: Lawrence Pedersen Admit Date: 07/09/22 Dear Doctor, A review of the medical record indicates additional documentation may be needed. Please review below and update the documentation accordingly. Clinical Indicators: Risk Factors/Clinical Indicators/Treatments Per MD progress note 07/14/22: Acute symptomatic anemia on chronic anemia ?Likely due to epistaxis and nutritional deficiency due to decreased by mouth intake no overt GI bleed noted -Stool occult positive in ER. -s/p PRBC transfusion. Follow H&H. Based on the above, could you clarify in the Progress Notes which of the following is the most likely type of anemia you are evaluating, treating, and/or monitoring? * Acute blood loss anemia * Acute blood loss anemia with baseline chronic anemia (specify type) * Other ? please specify * Unable to determine Use of terms such as suspected, likely, concern for, or probable (associated with a specific diagnosis that is being evaluated, monitored, or treated as if it exists) are acceptable and can be coded in the inpatient setting, when documented at the time of discharge. Thank you, Yolette Douglas RN Extension: [phone] Please use your independent medical judgment in providing your response. THIS QUERY IS PART OF THE PERMANENT MEDICAL RECORD Provider Response: Other Other Diagnosis: see note
[2022-07-15] MEDS: fentaNYL citrate/PF 100 MCG/2 ML VIAL 25 MCG IVPUSH ×3 (09:37→10:17)
[2022-07-15] MEDS: Morphine Sulfate 2 MG/ML CARTRIDGE IVPUSH (12:09)
--- NOTE | 2022-07-15 13:22 | P.PNIM_ITS ---
Subjective Subjective Date of Service: 07/15/22 Interval History: Patient returned for after placement of PEG tube complaining of pain at the site of surgery, requesting for more pain medications, coughing makes the pain worse, denies fever chills, no other acute issues overnight, patient remains NPO and PEG feedings to be started from tomorrow Review of Systems [employer] no headache no dizziness CVS no chest pain Respiratory positive cough, no shortness of breath Review of Systems: Yes all other systems are reviewed and are negative Physical Exam Vital Signs: Vital Signs: Last Vital Signs Temp 96.8 F 07/15/22 10:44 Pulse 88 07/15/22 10:44 Resp 16 07/15/22 10:44 BP 151/66 H 07/15/22 10:44 Pulse Ox 100 07/15/22 10:44 O2 Del Method 07/15/22 10:44 O2 Flow Rate 2 07/15/22 10:44 FiO2 35 07/15/22 10:00 BMI result Body Mass Index 30.0 Const: Other: General awake alert x3, lying in bed?in no distress Neck supple, no JVD CVS Regular rate and rhythm, S1-S2 heard Respiratory coarse breath sounds bilaterally, nowheezing or crackles appreciated Abdomen soft , dressing to back tube site in place, bowel sounds audible, no guarding, no rigidity Neuro awake, alert and?oriented x3, no focal motor deficit Psych: Normal mood No pedal edema Objective Data Active Medications Albuterol/Ipratropium (Albuterol/Iprat 2.5/0.5mg 3 Ml Ampul.Neb) 3 ml INHALE RQ4H PRN PRN Reason: wheezing Cyanocobalamin (Cyanocobalamin (Vitamin B-12) 1,000 Mcg Tablet) 1,000 mcg PO DAILY REPLACED BY [facility] Last Admin: 07/15/22 10:37 Dose: Not Given Documented By: ADRIANA Non-Admin Reason: Off Unit: Surgery Docusate Sodium (Docusate Sodium 100 Mg Capsule) 100 mg PO DAILY PRN PRN Reason: Constipation Ferrous Sulfate (Ferrous Sulfate 324 Mg Tablet.) 324 mg PO DAILY REPLACED BY [facility] Last Admin: 07/15/22 10:37 Dose: Not Given Documented By: ADRIANA Non-Admin Reason: Off Unit: Surgery Gabapentin (Gabapentin 400 Mg Capsule) 400 mg PO TID REPLACED BY [facility] Last Admin: 07/15/22 10:37 Dose: Not Given Documented By: ADRIANA Non-Admin Reason: Off Unit: Surgery Guaifenesin/Dextromethorphan (Guaifenesin Dm 100/10/5 Ml 5 Ml Syrup) 5 ml PO Q4H PRN PRN Reason: cough Last Admin: 07/12/22 08:15 Dose: 5 ml Documented By: SARAH Ampicillin Sodium/Sulbactam (Sodium 3 gm/ Sodium Chloride) 100 mls @ 200 mls/hr IV Q6H REPLACED BY [facility] Last Admin: 07/15/22 10:37 Dose: Not Given Documented By: ADRIANA Non-Admin Reason: Off Unit: Surgery Lactated Ringer's (Lr) 1,000 mls @ 100 mls/hr IVCONT .Q10H REPLACED BY [facility] Last Infusion: 07/15/22 12:46 Dose: 0 mls/hr Documented By: ADRIANA Acetaminophen (Ofirmev) 1,000 mg in 100 mls @ 400 mls/hr IV Q6H REPLACED BY [facility] Levothyroxine Sodium (Levothyroxine Sodium 75 Mcg Tablet) 75 mcg PO DAILY@0600 REPLACED BY [facility] Last Admin: 07/15/22 05:11 Dose: Not Given Documented By: MURPHY Non-Admin Reason: NPO Lidocaine (Lidocaine 4 % Patch Adh..Patch) 1 patch TRANSDERMA DAILY REPLACED BY [facility]; Protocol Last Admin: 07/15/22 10:38 Dose: Not Given Documented By: ADRIANA Non-Admin Reason: Off Unit: Surgery Morphine Sulfate (Morphine Sulfate 2 Mg/Ml Cartridge) 2 mg IVPUSH Q3H PRN; Protocol PRN Reason: Pain, Severe (Pain Scale 7-10) Last Admin: 07/15/22 12:09 Dose: 2 mg Documented By: ADRIANA Pt Own([Anoro Ellipta] 62.5-25 Mcg /Actuation Bl) 1 inhalation INHALE RDAILY REPLACED BY [facility] Last Admin: 07/15/22 10:37 Dose: Not Given Documented By: ADRIANA Non-Admin Reason: Off Unit: Surgery Omeprazole (Omeprazole 40 Mg Capsule.Dr) 40 mg PO DAILY@0630 REPLACED BY [facility] Last Admin: 07/15/22 05:11 Dose: Not Given Documented By: MURPHY Non-Admin Reason: NPO Ondansetron HCl (Ondansetron Hcl 4 Mg/2 Ml Vial) 4 mg IVPUSH Q8H PRN PRN Reason: Nausea and Vomiting Oxycodone HCl (Oxycodone Hcl Immed Release 5 Mg Tablet) 5 mg PO Q4H PRN PRN Reason: Pain, Moderate (Pain Scale 4-6 Sodium Chloride (0.9 % Sodium Chloride Flush 3 Ml Syringe) 3 ml IVFLUSH QSHIFT [facility] Last Admin: 07/15/22 09:24 Dose: Not Given Documented By: ADRIANA Non-Admin Reason: Off Unit: Surgery Labs CBC & Chem 7: 07/15/22 06:30 07/11/22 06:13 Labs: Laboratory Results - last 24 hr 07/15/22 06:30 MCV 91.0 MCH 30.3 MCHC 33.3 RDW 16.5 H Plt Count 405 H MPV 9.6 Immature Gran % (Auto) 0.6 H Neut % (Auto) 74.0 H Lymph % (Auto) 9.0 L [place] % (Auto) 13.6 H Eos % (Auto) 2.0 Baso % (Auto) 0.8 Lymph # (Auto) 0.4 L [place] # (Auto) 0.7 Eos # (Auto) 0.1 Baso # (Auto) 0.0 Abs Immat Gran (auto) 0.03 Absolute Neuts (auto) 3.6 Absolute Nucleated RBC 0.000 Nucleated RBC % (auto) 0.0 Microbiology Microbiology Results: Microbiology 07/10/22 07:33 Blood Culture - Final Blood - Venous No growth after 5 days. 07/10/22 07:33 Blood Culture - Final Blood - Venous No growth after 5 days. Assessment and Plan (1) Community acquired pneumonia: Status: Acute (2) Aspiration into airway: Status: Acute (3) Acute anemia: Status: Acute (4) Lumbar radiculitis: Status: Acute Plan 71-year-old male with previous medical history of anemia, history of throat cancer status post radiation therapy and esophageal stricture presents the hospital with complaints of chest pain with cough found to have acute anemia. #. Community-acquired pneumonia with concern for aspiration -continue IV Unasyn D6/7, less coughing, no fevers, finger oximetry on 2 L of oxygen # dysphagia modified barium swallow showed laryngeal penetration and tracheal aspiration with all consistencies Underwent PEG tube placement this morning, will start diet after 24 hours if okay with General surgery , will obtain nutrition consult Continue IV fluid, increase dose of morphine to 3 mg q3 hours prn, continue as needed oxycodone and Tylenol #. Acute symptomatic anemia on chronic anemia Acute blood loss anemia Likely due to epistaxis and nutritional deficiency due to decreased by mouth intake, no overt GI bleed noted -Stool occult positive in ER. -s/p PRBC transfusion. Follow H&H. GI seen and he is declining endoscopy at this time, will reassess #. Abnormal CT chest with dense opacity in the right upper lobe with additional heterogeneous consolidation in the adjacent superior right lower lobe suspicious for pneumonia though malignancy is difficult to exclude -Will need follow up imaging to rule out malignancy once acute infection resolves in this patient with history of cancer. #. Radiculopathy--CT neck no mass #. Hypothyroidism -on synthroid DVT prophylaxis : SCDs Diet; npo Full code need for inaptient stay: Since NPO on IV fluids and IV antibiotics had back tube placed will be started on G-tube feedings from tomorrow Quality Stroke Does the patient have a stroke diagnosis?: No VTE Prior VTE?: No VTE Risk Level:: Medical - moderate - high VTE Device Contraindication: N/A - Device Ordered VTE Drug Contraindication: Treatment Not Indicated
--- NOTE | 2022-07-15 15:06 | MHC.SLORD ---
Speech Language Pathology Order Status: Pt had PEG surgery today, with tube feeding scheduled to begin tomorrow. PIN WORKER will continue to follow.
--- NOTE | 2022-07-15 16:26 | PM.EVENT ---
Event Note Date of Service: 07/15/22 Event Note: seen postop underwent open gastrostomy tube placement this AM c/o incisional pain stable VS abd soft dressings dry pain mgt ok to start low dose feeds tomorrow
[2022-07-15] MEDS: Morphine Sulfate 2 MG/ML CARTRIDGE 3 MG IVPUSH ×2 (17:30→22:32)
[2022-07-15] MEDS: Acetaminophen 1,000 MG/100 ML PIGGYBACK 400 MG IV ×2 (17:34→23:08)
[2022-07-16] MEDS: Morphine Sulfate 2 MG/ML CARTRIDGE 3 MG IVPUSH ×2 (04:10→07:30)
[2022-07-16] MEDS: Ampicillin Sodium/Sulbactam Na 3 GM in 0.9 % Sodium Chloride 100 ML IV ×4 (05:55→22:27)
[2022-07-16] MEDS: Lactated Ringers 1,000 ML 100 ML IVCONT (05:55)
[2022-07-16] MEDS: Acetaminophen 1,000 MG/100 ML PIGGYBACK 400 MG IV ×4 (05:56→23:02)
[2022-07-16 06:19] LABS: Anion Gap 15 (12-20); Blood Urea Nitrogen 10 mg/dL (9-16); Calcium 8.9 mg/dL (8.4-10.2); Carbon Dioxide 25 mmol/L (22-29); Chloride 105 mmol/L (96-108); Creatinine Clr Calc Pharmacy 118.9; Estimated Glomerular Filt Rate > 60; Glucose Random 139 mg/dL (60-115); Potassium 3.3 mmol/L (3.3-5.1); Sodium 142 mmol/L (135-145)
[2022-07-16 07:28] VITALS: BP 131/64; PULSE 89; RESP 16; TEMP 36.4; O2SAT 100
--- NOTE | 2022-07-16 08:40 | P.PNGS_ITS ---
Subjective Subjective Date of Service: 07/16/22 <Nneka Haney PA-C - Last Filed: 07/16/22 08:45> 07/16/22 <Shailesh Frankel MD - Last Filed: 07/16/22 10:14> Interval history: C/o severe pain unrelieved by morphine despite increase yesterday. Unable to get OOB. <Nneka Haney PA-C - Last Filed: 07/16/22 08:45> Physical Exam Vital Signs: Vital Signs: Last Vital Signs Temp 97.5 F 07/16/22 07:28 Pulse 89 07/16/22 07:28 Resp 16 07/16/22 07:28 BP 131/64 07/16/22 07:28 Pulse Ox 100 07/16/22 07:28 O2 Del Method 07/16/22 07:28 O2 Flow Rate 2.0 07/16/22 07:28 FiO2 35 07/15/22 10:00 BMI result Body Mass Index 30.0 <Nneka Haney PA-C - Last Filed: 07/16/22 08:45> Const: General: no acute distress and alert <Nneka Haney PA-C - Last Filed: 07/16/22 08:45> Nutritional Appearance: cachectic <Nneka Haney PA-C - Last Filed: 07/16/22 08:45> Orientation/consciousness: patient oriented x3 <Nneka Haney PA-C - Last Filed: 07/16/22 08:45> Resp: Effort & Inspection: normal respiratory effort <Nneka Haney PA-C - Last Filed: 07/16/22 08:45> GI: Other: G tube in place <Nneka Haney PA-C - Last Filed: 07/16/22 08:45> Inspection: No distended and Yes incision (dressing c/d/i) <TALYA Pierre Last Filed: 07/16/22 08:45> Palpation (GI): Soft to palpation, Tenderness to palpation present (GI) (incisional), no guarding and not rigid <TALYA Pierre Last Filed: 07/16/22 08:45> Percussion: Yes normal to percussion <Nneka Haney PA-C - Last Filed: 07/16/22 08:45> Skin: General skin exam: no rashes or lesions noted <Nneka Haney PA-C - Last Filed: 07/16/22 08:45> Neuro: General: patient oriented x3 <Nneka Haney PA-C - Last Filed: 07/16/22 08:45> Objective Data Active Medications Albuterol/Ipratropium (Albuterol/Iprat 2.5/0.5mg 3 Ml Ampul.Neb) 3 ml INHALE RQ4H PRN PRN Reason: wheezing Cyanocobalamin (Cyanocobalamin (Vitamin B-12) 1,000 Mcg Tablet) 1,000 mcg PO DAILY [facility] Last Admin: 07/16/22 07:39 Dose: Not Given Documented By: ADRIANA Non-Admin Reason: NPO Docusate Sodium (Docusate Sodium 100 Mg Capsule) 100 mg PO DAILY PRN PRN Reason: Constipation Ferrous Sulfate (Ferrous Sulfate 324 Mg Tablet.Dr) 324 mg PO DAILY [facility] Last Admin: 07/16/22 07:39 Dose: Not Given Documented By: ADRIANA Non-Admin Reason: NPO Gabapentin (Gabapentin 400 Mg Capsule) 400 mg PO TID [facility] Last Admin: 07/16/22 07:39 Dose: Not Given Documented By: ADRIANA Non-Admin Reason: NPO Guaifenesin/Dextromethorphan (Guaifenesin Dm 100/10/5 Ml 5 Ml Syrup) 5 ml PO Q4H PRN PRN Reason: cough Last Admin: 07/12/22 08:15 Dose: 5 ml Documented By: SARAH Lactated Ringer's (Lr) 1,000 mls @ 100 mls/hr IVCONT .Q10H [facility] Last Admin: 07/16/22 05:55 Dose: 100 mls/hr Documented By: NELDA Acetaminophen (Ofirmev) 1,000 mg in 100 mls @ 400 mls/hr IV Q6H [facility] Last Infusion: 07/16/22 06:31 Dose: 400 mls/hr Documented By: NELDA Ampicillin Sodium/Sulbactam (Sodium 3 gm/ Sodium Chloride) 100 mls @ 200 mls/hr IV Q6H [facility] Last Infusion: 07/16/22 06:32 Dose: 0 mls/hr Documented By: NELDA Levothyroxine Sodium (Levothyroxine Sodium 75 Mcg Tablet) 75 mcg PO DAILY@0600 [facility] Last Admin: 07/16/22 06:44 Dose: Not Given Documented By: NELDA Non-Admin Reason: NPO Lidocaine (Lidocaine 4 % Patch Adh..Patch) 1 patch TRANSDERMA DAILY [facility]; Protocol Last Admin: 07/15/22 10:38 Dose: Not Given Documented By: ADRIANA Non-Admin Reason: Off Unit: Surgery Morphine Sulfate (Morphine Sulfate 2 Mg/Ml Cartridge) 4 mg IVPUSH Q4H PRN; Protocol PRN Reason: Pain, Severe (Pain Scale 7-10) Pt Own([Anoro Ellipta] 62.5-25 Mcg /Actuation Bl) 1 inhalation INHALE RDAILY [facility] Last Admin: 07/15/22 10:37 Dose: Not Given Documented By: ADRIANA Non-Admin Reason: Off Unit: Surgery Omeprazole (Omeprazole 40 Mg Capsule.Dr) 40 mg PO DAILY@0630 [facility] Last Admin: 07/16/22 06:45 Dose: Not Given Documented By: NELDA Non-Admin Reason: NPO Ondansetron HCl (Ondansetron Hcl 4 Mg/2 Ml Vial) 4 mg IVPUSH Q8H PRN PRN Reason: Nausea and Vomiting Oxycodone HCl (Oxycodone Hcl Immed Release 5 Mg Tablet) 5 mg PO Q4H PRN PRN Reason: Pain, Moderate (Pain Scale 4-6 Sodium Chloride (0.9 % Sodium Chloride Flush 3 Ml Syringe) 3 ml IVFLUSH QSHIFT [facility] Last Admin: 07/16/22 07:33 Dose: Not Given Documented By: ADRIANA Non-Admin Reason: IV Running <Nneka Haney PA-C - Last Filed: 07/16/22 08:45> Labs CBC & Chem 7: : 07/15/22 06:30 07/16/22 05:14 <Nneka Haney PA-C - Last Filed: 07/16/22 08:45> Labs: Laboratory Results - last 24 hr 07/16/22 05:14 Anion Gap 15 Estim Creat Clear Calc 118.9 Estimated GFR > 60 Random Glucose 139 H Calcium 8.9 <Nneka Haney PA-C - Last Filed: 07/16/22 08:45> Microbiology Microbiology Results: Microbiology 07/10/22 07:33 Blood Culture - Final Blood - Venous No growth after 5 days. 07/10/22 07:33 Blood Culture - Final Blood - Venous No growth after 5 days. <Nneka Haney PA-C - Last Filed: 07/16/22 08:45> Procedures Date of Service Date of Service: 07/16/22 <Nneka Haney PA-C - Last Filed: 07/16/22 08:45> Progress Note: A&P Assessment and plan (1) Aspiration into airway: Status: Acute <Nneka Haney PA-C - Last Filed: 07/16/22 08:45> (2) Dysphagia: Status: Acute <TALYA Pierre Last Filed: 07/16/22 08:45> (3) S/P gastrostomy tube (G tube) placement, follow-up exam: Status: Acute <Nneka Haney PA-C - Last Filed: 07/16/22 08:45> Assessment and Plan: Complaints of incisional pain Looks well Abdomen soft Dressings dry G-tube in place Okay to start tube feeds today at lower rate Seen and examined independently-agree with SALVADOR Haney <Shailesh Frankel MD - Last Filed: 07/16/22 10:14> Assessment and Plan: 71 year old male with hx of throat CA s/p radiation, esophageal strictures being treated for aspiration PNA, dysphagia. He is POD #1 s/p open gastrostomy tube placement. During intubation, the oropharynx was noted to be very indurated and fibrotic from radiation changes so it was decided to proceed with open surgical gastrostomy instead of attempting PEG. He is doing ok post op, having difficulty with pain control. VSS. Abd is very soft and G tube in place, dressing c/d/i. Will change analgesics to dilaudid. Continue ofirmev. Ok to begin tube feeds. <Nneka Haney PA-C - Last Filed: 07/16/22 08:45> Time Spent With Patient Time: Total time spent is greater than 50% in coordination of care (as documented) at patient's floor/unit and/or counseling patient: <Nneka Haney PA-C - Last Filed: 07/16/22 08:45> Quality Stroke Does the patient have a stroke diagnosis?: No <Nneka Haney PA-C - Last Filed: 07/16/22 08:45> VTE Prior VTE?: No <Nneka Haney PA-C - Last Filed: 07/16/22 08:45> VTE Risk Level:: Medical - moderate - high <Nneka Haney PA-C - Last Filed: 07/16/22 08:45> VTE Device Contraindication: N/A - Device Ordered <Nneka Haney PA-C - Last Filed: 07/16/22 08:45> VTE Drug Contraindication: Treatment Not Indicated <Nneka Haney PA-C - Last Filed: 07/16/22 08:45>
[2022-07-16] MEDS: Lidocaine 4 % Patch ADH..PATCH 1 PATCH TRANSDERMA (08:44)
[2022-07-16] MEDS: HYDROmorphone HCl 0.5 MG/0.5 ML SYRINGE IVPUSH ×2 (10:34→19:41)
--- NOTE | 2022-07-16 11:03 | MHC.CLN ---
NUTRITION CONSULT FOR TUBE FEEDING. PEG TUBE PLACED 07/15. TUBE FEEDING TO BEGIN TODAY. CURRENT WEIGHT=87 KG APPEARS TO BE ERROR PATIENT APPEARS THIN AND WEIGHT GREATER THAN MOST RECENT WEIGHT RANGE. USED IBW =67.27 KG TO ESTIMATE NUTRITIONAL NEEDS. TUBE FEEDING RECOMMENDATION: OSMOLITE 1.5 AT MAX GOAL RATE 50 ML PER HOUR. FREE WATER FLUSH 120 ML Q 4 HOURS. PROVIDES 1200 ML FORMULA; 1800 KCALS (26.8 KCALS/KG IBW); 75 G PROTEIN (1.15 G/KG IBW); FREE WATER FROM FORMULA (914 ML) PLUS FLUSH (720 ML)=1634 ML (24.3 ML/KG). START AT 20 ML PER HOUR; INCREASE BY 10 ML EVERY 4 HOURS TO MAX GOAL RATE OF 50 ML PER HOUR. CHECK RESIDUALS, TUBE FEED TOLERANCE, LABS, WEIGHT.
[2022-07-16 11:10] VITALS: BP 171/80; PULSE 88; RESP 15; TEMP 36.7; O2SAT 99
[2022-07-16 11:15] VITALS: BMI 20.7
--- NOTE | 2022-07-16 12:12 | HO.POSTANES ---
Post Anesthesia Evaluation Post Anesthesia Evaluation Vital Signs: Vital Signs Temp Pulse Resp BP Pulse Ox O2 Del Method O2 Flow Rate 07/16/22 11:10 98.1 F 88 15 171/80 H 99 Room Air 07/16/22 07:28 97.5 F 89 16 131/64 100 Nasal Cannula 2.0 Anesthesia: General Endotracheal-GETA Mental Status: Awake Pain Control: Satisfactory (alot of pain) Nausea/Vomiting: Mild Hydration: Adequate Anesthesia-Related Issues: No Anes. Related Issues
--- NOTE | 2022-07-16 12:25 | HO.PM.IMPN ---
Subjective Subjective Date of Service: 07/16/22 Interval History: Complaining of pain at site of G-tube insertion, pain worse with coughing, denies fever chills, no headache, no dizziness, denies shortness of breath, requesting for pain medication, since current dose of morphine is not helping and pain remains NPO receiving IV fluids, no other acute issues overnight. Review of Systems Review of Systems: Yes all other systems are reviewed and are negative Physical Exam Vital Signs: Vital Signs: Last Vital Signs Temp 98.1 F 07/16/22 11:10 Pulse 88 07/16/22 11:10 Resp 15 07/16/22 11:10 BP 171/80 H 07/16/22 11:10 Pulse Ox 99 07/16/22 11:10 O2 Del Method 07/16/22 11:10 O2 Flow Rate 2.0 07/16/22 07:28 FiO2 35 07/15/22 10:00 BMI result Body Mass Index 20.7 Const: Other: General awake alert x3, lying in bed?in no distress Neck supple, no JVD CVS Regular rate and rhythm, S1-S2 heard Respiratory coarse breath sounds bilaterally, no wheezing or crackles appreciated Abdomen soft , dressing to g- tube site in place, bowel sounds audible, no guarding, no rigidity Neuro awake, alert and?oriented x3, no focal motor deficit Psych: Normal mood No pedal edema ? Objective Data Active Medications Albuterol/Ipratropium (Albuterol/Iprat 2.5/0.5mg 3 Ml Ampul.Neb) 3 ml INHALE RQ4H PRN PRN Reason: wheezing Cyanocobalamin (Cyanocobalamin (Vitamin B-12) 1,000 Mcg Tablet) 1,000 mcg PO DAILY [facility] Last Admin: 07/16/22 07:39 Dose: Not Given Documented By: ADRIANA Non-Admin Reason: NPO Docusate Sodium (Docusate Sodium 100 Mg Capsule) 100 mg PO DAILY PRN PRN Reason: Constipation Ferrous Sulfate (Ferrous Sulfate 324 Mg Tablet.Dr) 324 mg PO DAILY [facility] Last Admin: 07/16/22 07:39 Dose: Not Given Documented By: ADRIANA Non-Admin Reason: NPO Gabapentin (Gabapentin 400 Mg Capsule) 400 mg PO TID [facility] Last Admin: 07/16/22 07:39 Dose: Not Given Documented By: HO.DABA Non-Admin Reason: NPO Guaifenesin/Dextromethorphan (Guaifenesin Dm 100/10/5 Ml 5 Ml Syrup) 5 ml PO Q4H PRN PRN Reason: cough Last Admin: 07/12/22 08:15 Dose: 5 ml Documented By: SARAH Hydromorphone HCl (Hydromorphone Hcl 0.5 Mg/0.5 Ml Syringe) 0.5 mg IVPUSH Q3H PRN; Protocol PRN Reason: Pain, Severe (Pain Scale 7-10) Last Admin: 07/16/22 10:34 Dose: 0.5 mg Documented By: ADRIANA Lactated Ringer's (Lr) 1,000 mls @ 100 mls/hr IVCONT .Q10H [facility] Last Admin: 07/16/22 05:55 Dose: 100 mls/hr Documented By: NELDA Acetaminophen (Ofirmev) 1,000 mg in 100 mls @ 400 mls/hr IV Q6H [facility] Last Admin: 07/16/22 12:11 Dose: 400 mls/hr Documented By: ADRIANA Ampicillin Sodium/Sulbactam (Sodium 3 gm/ Sodium Chloride) 100 mls @ 200 mls/hr IV Q6H [facility] Last Infusion: 07/16/22 11:51 Dose: 0 mls/hr Documented By: ADRIANA Levothyroxine Sodium (Levothyroxine Sodium 75 Mcg Tablet) 75 mcg PO DAILY@0600 [facility] Last Admin: 07/16/22 06:44 Dose: Not Given Documented By: NELDA Non-Admin Reason: NPO Lidocaine (Lidocaine 4 % Patch Adh..Patch) 1 patch TRANSDERMA DAILY [facility]; Protocol Last Admin: 07/16/22 08:44 Dose: 1 patch Documented By: ADRIANA Pt Own([Anoro Ellipta] 62.5-25 Mcg /Actuation Bl) 1 inhalation INHALE RDAILY [facility] Last Admin: 07/16/22 11:51 Dose: Not Given Documented By: ADRIANA Non-Admin Reason: pt has not taken yet today , pt will ask for Omeprazole (Omeprazole 40 Mg Capsule.Dr) 40 mg PO DAILY@0630 [facility] Last Admin: 07/16/22 06:45 Dose: Not Given Documented By: NELDA Non-Admin Reason: NPO Ondansetron HCl (Ondansetron Hcl 4 Mg/2 Ml Vial) 4 mg IVPUSH Q8H PRN PRN Reason: Nausea and Vomiting Oxycodone HCl (Oxycodone Hcl Immed Release 5 Mg Tablet) 5 mg PO Q4H PRN PRN Reason: Pain, Moderate (Pain Scale 4-6 Sodium Chloride (0.9 % Sodium Chloride Flush 3 Ml Syringe) 3 ml IVFLUSH QSHIFT [facility] Last Admin: 07/16/22 07:33 Dose: Not Given Documented By: DARIANA Non-Admin Reason: IV Running Labs CBC & Chem 7: 07/15/22 06:30 07/16/22 05:14 Labs: Laboratory Results - last 24 hr 07/16/22 05:14 Anion Gap 15 Estim Creat Clear Calc 118.9 Estimated GFR > 60 Random Glucose 139 H Calcium 8.9 Microbiology Microbiology Results: Microbiology 07/10/22 07:33 Blood Culture - Final Blood - Venous No growth after 5 days. 07/10/22 07:33 Blood Culture - Final Blood - Venous No growth after 5 days. Assessment and Plan (1) Community acquired pneumonia: Status: Acute (2) Aspiration into airway: Status: Acute (3) Acute anemia: Status: Acute (4) Lumbar radiculitis: Status: Acute Plan 71-year-old male with previous medical history of anemia, history of throat cancer status post radiation therapy and esophageal stricture presents the hospital with complaints of chest pain with cough found to have acute anemia. #. Community-acquired pneumonia with concern for aspiration -continue IV Unasyn D7/7, overall feeling better, finger oximetry 99% on room air no fevers, less coughing, will DC Unasyn after today's dose # dysphagia modified barium swallow showed laryngeal penetration and tracheal aspiration with all consistencies Underwent PEG tube placement 07/15 , will start g tube diet today, case discussed with trip motor operator promise IV fluid, DC morphine patient placed on IV Dilaudid due to severe abdominal pain at site of G-tube incision, continue as needed oxycodone and Tylenol All meds changed to G-tube #. Acute symptomatic anemia on chronic anemia Acute blood loss anemia Likely due to epistaxis and nutritional deficiency due to decreased by mouth intake, no overt GI bleed noted -Stool occult positive in ER. -s/p PRBC transfusion. H&H is stable,. GI seen no inpatient endoscopy planned #. Abnormal CT chest with dense opacity in the right upper lobe with additional heterogeneous consolidation in the adjacent superior right lower lobe suspicious for pneumonia though malignancy is difficult to exclude -Will need follow up imaging to rule out malignancy once acute infection resolves in this patient with history of cancer. #. Radiculopathy--CT neck no mass #. Hypothyroidism -on synthroid DVT prophylaxis : SCDs Diet; G-tube feeding started Full code need for inaptient stay: Patient started on G-tube feedings will monitor for 24 hours, also on IV antibiotics Quality Stroke Does the patient have a stroke diagnosis?: No VTE Prior VTE?: No VTE Risk Level:: Medical - moderate - high VTE Device Contraindication: N/A - Device Ordered VTE Drug Contraindication: Treatment Not Indicated
[2022-07-16] MEDS: Cyanocobalamin (Vitamin B-12) 1,000 MCG TABLET 1000 MCG G-TUBE (14:18)
[2022-07-16] MEDS: Gabapentin 400 MG CAPSULE G-TUBE ×2 (14:18→21:15)
[2022-07-16] MEDS: 0.9 % Sodium Chloride Flush 3 ML SYRINGE IVFLUSH ×2 (14:18→23:29)
--- NOTE | 2022-07-16 14:45 | MHC.SLORD ---
Addendum entered and electronically signed by JOE Peña 07/16/22 15:41: S.W. Original Note: Speech Language Pathology Order Status: Pt was recommended NPO following MBSS on 07/11/22. Pt had PEG surgery on 07/15/22. Bolus feeds began today, 07/16/22. HOLLOCK MAKER attempted to see pt for [place] Free Water Treatment (FFWT) 2X today. Pt was NPO in morning pending dietary consult and starting of bolus feeds. HOLLOCK MAKER returned in afternoon, pt expressed interest in FFWT, however reported he is currently in too much pain from the surgery to sit up and prefers to lay down. Informational paper about FFWT left in pt's room. HOLLOCK MAKER to continue to follow for FFWT.
--- NOTE | 2022-07-16 14:58 | MHC.CM.PN ---
EMR REVIEWED, PT STARTED TUBE FEEDING TODAY, [facility] UPDATED AND REFERRAL SENT TO [facility] FOR ADDITIONAL TEACHING. CM ATTEMPTED TO CONTACT PT'S DTR AMANDA AT 2:45PM AT NUMBER ON FILE, NO ANSWER AND MESSAGE LEFT W/CM CONTACT INFO. [facility] LIAISON MET W/PT AT BEDSIDE AND PT WILL BE USING THE SAME NUTRITION PUMP AT HOME, NSG AWARE SO IF DTR COMES IN FOR VISIT RN WILL START TEACHING AT BEDSIDE. PT REMAINS ON IV NARCOTIC PAIN MEDS FOR PAIN, PT NOT YET AT GOAL FOR NUTRITION, CM WILL CONT TO FOLLOW D/C NEEDS.
[2022-07-16 15:23] VITALS: BP 141/70; PULSE 86; RESP 16; TEMP 37.2; O2SAT 99
[2022-07-16] MEDS: ondansetron HCL 4 MG/2 ML VIAL IVPUSH (17:39)
--- NOTE | 2022-07-16 17:43 | PC.NURSE ---
1735 pt c/o nausea, tube feeding at 20mls/hr . zofran given at 1740 . Tube feeding checked for residual , and there was 0mls for residual . Pt requested tube feed to be paused for zofran to kick in . Will restart in 15 mins . will cont to monitor
--- NOTE | 2022-07-16 18:22 | PC.NURSE ---
1820 pt continues to feel full . pt requesting tube feed off . Zofran given with no relief . This rn contacted that states hold for 2 hours then resume .
[2022-07-16 19:21] VITALS: BP 154/68; PULSE 90; RESP 16; TEMP 36.4; O2SAT 100
[2022-07-16 23:29] VITALS: BP 143/69; PULSE 86; RESP 16; TEMP 36.1; O2SAT 98
[2022-07-17] VITALS (7 sets, daily range): BP systolic 115–144; BP diastolic 63–83; PULSE 83–96; RESP 16–18; TEMP 36.1–36.7; O2SAT 96–98
--- NOTE | 2022-07-17 01:35 | PC.NURSE ---
07/16/22 213 tube feeding restarted at 20ml/hr. nothing aspirated prior to starting feeding.0130 feeding increased to 30ml/hr flushed with 120ml water.nothing aspirated prior to increasing feeding.del hathaway.
[2022-07-17] MEDS: Acetaminophen 1,000 MG/100 ML PIGGYBACK 400 MG IV ×4 (05:01→22:47)
[2022-07-17] MEDS: Levothyroxine Sodium 75 MCG TABLET G-TUBE (05:11)
[2022-07-17] MEDS: HYDROmorphone HCl 0.5 MG/0.5 ML SYRINGE IVPUSH (05:18)
[2022-07-17] MEDS: Ampicillin Sodium/Sulbactam Na 3 GM in 0.9 % Sodium Chloride 100 ML IV (05:23)
--- NOTE | 2022-07-17 05:35 | PC.NURSE ---
no residual from PEG flushed with 120ml of water feeding increased to 40ml/hr.Yinka well.
[2022-07-17] MEDS: Lidocaine 4 % Patch ADH..PATCH 1 PATCH TRANSDERMA (07:36)
[2022-07-17] MEDS: Cyanocobalamin (Vitamin B-12) 1,000 MCG TABLET 1000 MCG G-TUBE (07:37)
[2022-07-17] MEDS: Gabapentin 400 MG CAPSULE G-TUBE ×3 (07:37→20:29)
[2022-07-17] MEDS: 0.9 % Sodium Chloride Flush 3 ML SYRINGE IVFLUSH ×3 (07:37→20:29)
--- NOTE | 2022-07-17 08:48 | PM.PNGS ---
Subjective Subjective Date of Service: 07/17/22 Interval history: tolerating tube feeds better pain control Physical Exam Vital Signs: Vital Signs: Last Vital Signs Temp 97.9 F 07/17/22 07:47 Pulse 88 07/17/22 07:47 Resp 18 07/17/22 07:47 BP 135/64 07/17/22 07:47 Pulse Ox 98 07/17/22 07:47 O2 Del Method 07/17/22 07:47 O2 Flow Rate 2 07/17/22 03:36 FiO2 35 07/15/22 10:00 BMI result Body Mass Index 20.7 Const: General: comfortable and no acute distress Resp: Effort & Inspection: normal respiratory effort GI: Other: G-tube in place Palpation (GI): Soft to palpation, not firm and no guarding Objective Data Active Medications Albuterol/Ipratropium (Albuterol/Iprat 2.5/0.5mg 3 Ml Ampul.Neb) 3 ml INHALE RQ4H PRN PRN Reason: wheezing Cyanocobalamin (Cyanocobalamin (Vitamin B-12) 1,000 Mcg Tablet) 1,000 mcg G-TUBE DAILY [facility] Last Admin: 07/17/22 07:37 Dose: 1,000 mcg Documented By: ADRIANA Docusate Sodium (Docusate Sodium 100 Mg Capsule) 100 mg PO DAILY PRN PRN Reason: Constipation Gabapentin (Gabapentin 400 Mg Capsule) 400 mg G-TUBE TID [facility] Last Admin: 07/17/22 07:37 Dose: 400 mg Documented By: ADRIANA Guaifenesin/Dextromethorphan (Guaifenesin Dm 100/10/5 Ml 5 Ml Syrup) 5 ml PO Q4H PRN PRN Reason: cough Last Admin: 07/12/22 08:15 Dose: 5 ml Documented By: SARAH Hydromorphone HCl (Hydromorphone Hcl 0.5 Mg/0.5 Ml Syringe) 0.5 mg IVPUSH Q3H PRN; Protocol PRN Reason: Pain, Severe (Pain Scale 7-10) Last Admin: 07/17/22 05:18 Dose: 0.5 mg Documented By: RICK Acetaminophen (Ofirmev) 1,000 mg in 100 mls @ 400 mls/hr IV Q6H [facility] Last Infusion: 07/17/22 05:27 Dose: 0 mls/hr Documented By: RICK Levothyroxine Sodium (Levothyroxine Sodium 75 Mcg Tablet) 75 mcg G-TUBE DAILY@0600 [facility] Last Admin: 07/17/22 05:11 Dose: 75 mcg Documented By: RICK Lidocaine (Lidocaine 4 % Patch Adh..Patch) 1 patch TRANSDERMA DAILY [facility]; Protocol Last Admin: 07/17/22 07:36 Dose: 1 patch Documented By: ADRIANA Pt Own([Anoro Ellipta] 62.5-25 Mcg /Actuation Bl) 1 inhalation INHALE RDAILY [facility] Last Admin: 07/17/22 07:59 Dose: Not Given Documented By: ADRIANA Non-Admin Reason: Patient Refused Omeprazole (Omeprazole 20 Mg/10 Ml Susp.Recon) 40 mg G-TUBE DAILY@0630 [facility] Last Admin: 07/17/22 05:11 Dose: 40 mg Documented By: RICK Ondansetron HCl (Ondansetron Hcl 4 Mg/2 Ml Vial) 4 mg IVPUSH Q8H PRN PRN Reason: Nausea and Vomiting Last Admin: 07/16/22 17:39 Dose: 4 mg Documented By: ADRIANA Oxycodone HCl (Oxycodone Hcl Immed Release 5 Mg Tablet) 5 mg G-TUBE Q4H PRN PRN Reason: Pain, Moderate (Pain Scale 4-6 Sodium Chloride (0.9 % Sodium Chloride Flush 3 Ml Syringe) 3 ml IVFLUSH QSHIFT [facility] Last Admin: 07/17/22 07:37 Dose: 3 ml Documented By: ADRIANA Labs CBC & Chem 7: 07/15/22 06:30 07/16/22 05:14 Procedures Date of Service Date of Service: 07/17/22 Progress Note: A&P Assessment and plan (1) Dysphagia: Status: Acute Assessment and Plan: status post open G-tube placement good G-tube function rest of management as per primary service doing well pain management Time Spent With Patient Time: Total time spent is greater than 50% in coordination of care (as documented) at patient's floor/unit and/or counseling patient: Quality Stroke Does the patient have a stroke diagnosis?: No VTE Prior VTE?: No VTE Risk Level:: Medical - moderate - high VTE Device Contraindication: N/A - Device Ordered VTE Drug Contraindication: Treatment Not Indicated
[2022-07-17] MEDS: Docusate Sodium 100 MG/10 ML LIQUID G-TUBE ×2 (10:07→20:29)
[2022-07-17] MEDS: oxyCODONE HCl Immed Release 5 MG TABLET G-TUBE ×2 (10:49→20:43)
--- NOTE | 2022-07-17 11:19 | MHC.CLN ---
F/U PEG TUBE PLACED 07/15. TUBE FEEDING STARTED YESTERDAY TF CURRENTLY RUNNING AT 40ML/HR -PT TOLERATING WELL AT THIS TIME PT'S TF GOAL OSMOLITE 1.5 AT 50 ML PER HOUR WITH 120ML FREE WATER FLUSH Q 4 HOURS TO PROVIDE 1800KCALS (26.8 KCALS/KG IBW); 75G PROTEIN (1.15 G/KG IBW); 1634ML TOTAL FREE WATER FROM FORMULA AND FLUSHES (24.3 ML/KG) CONTINUE TO MONITOR TOLERANCE, RESIDUALS AND LYTES
--- NOTE | 2022-07-17 11:44 | HO.PM.IMPN ---
Subjective Subjective Date of Service: 07/17/22 Interval History: Complaining of abdominal pain, better with IV Dilaudid, requesting for abdominal binder since unable to get up due to significant pain, also had no bowel movement in last several days, currently on 40 mL G-tube feedings being gradually advanced, no other acute issues overnight no fevers no chills patient awake alert no shortness of breath, finger oximetry 98% on room air. Review of Systems Review of Systems: Yes all other systems are reviewed and are negative Physical Exam Vital Signs: Vital Signs: Last Vital Signs Temp 98.0 F 07/17/22 11:40 Pulse 83 07/17/22 11:40 Resp 18 07/17/22 11:40 BP 115/65 07/17/22 11:40 Pulse Ox 97 07/17/22 11:40 O2 Del Method 07/17/22 11:40 O2 Flow Rate 2 07/17/22 03:36 FiO2 35 07/15/22 10:00 BMI result Body Mass Index 20.7 Const: Other: General awake alert x3, lying in bed?in no distress Neck supple, no JVD CVS Regular rate and rhythm, S1-S2 heard Respiratory clear breath sounds bilaterally, no wheezing or crackles appreciated Abdomen soft , dressing to g- tube site in place, tenderness at g tube site ,bowel sounds audible, no guarding, no rigidity Neuro awake, alert and?oriented x3, no focal motor deficit Psych: Normal mood No pedal edema ? Objective Data Active Medications Albuterol/Ipratropium (Albuterol/Iprat 2.5/0.5mg 3 Ml Ampul.Neb) 3 ml INHALE RQ4H PRN PRN Reason: wheezing Cyanocobalamin (Cyanocobalamin (Vitamin B-12) 1,000 Mcg Tablet) 1,000 mcg G-TUBE DAILY [facility] Last Admin: 07/17/22 07:37 Dose: 1,000 mcg Documented By: ADRIANA Docusate Sodium (Docusate Sodium 100 Mg/10 Ml Liquid) 100 mg G-TUBE BID [facility] Last Admin: 07/17/22 10:07 Dose: 100 mg Documented By: ADRIANA Gabapentin (Gabapentin 400 Mg Capsule) 400 mg G-TUBE TID [facility] Last Admin: 07/17/22 07:37 Dose: 400 mg Documented By: ADRIANA Guaifenesin/Dextromethorphan (Guaifenesin Dm 100/10/5 Ml 5 Ml Syrup) 5 ml PO Q4H PRN PRN Reason: cough Last Admin: 07/12/22 08:15 Dose: 5 ml Documented By: SARAH Hydromorphone HCl (Hydromorphone Hcl 0.5 Mg/0.5 Ml Syringe) 0.5 mg IVPUSH Q3H PRN; Protocol PRN Reason: Pain, Severe (Pain Scale 7-10) Last Admin: 07/17/22 05:18 Dose: 0.5 mg Documented By: RICK Acetaminophen (Ofirmev) 1,000 mg in 100 mls @ 400 mls/hr IV Q6H [facility] Last Infusion: 07/17/22 10:23 Dose: 0 mls/hr Documented By: ADRIANA Levothyroxine Sodium (Levothyroxine Sodium 75 Mcg Tablet) 75 mcg G-TUBE DAILY@0600 [facility] Last Admin: 07/17/22 05:11 Dose: 75 mcg Documented By: RICK Lidocaine (Lidocaine 4 % Patch Adh..Patch) 1 patch TRANSDERMA DAILY [facility]; Protocol Last Admin: 07/17/22 07:36 Dose: 1 patch Documented By: ADRIANA Pt Own([Anoro Ellipta] 62.5-25 Mcg /Actuation Bl) 1 inhalation INHALE RDAILY [facility] Last Admin: 07/17/22 07:59 Dose: Not Given Documented By: ADRIANA Non-Admin Reason: Patient Refused Omeprazole (Omeprazole 20 Mg/10 Ml Susp.Recon) 40 mg G-TUBE DAILY@0630 [facility] Last Admin: 07/17/22 05:11 Dose: 40 mg Documented By: RICK Ondansetron HCl (Ondansetron Hcl 4 Mg/2 Ml Vial) 4 mg IVPUSH Q8H PRN PRN Reason: Nausea and Vomiting Last Admin: 07/16/22 17:39 Dose: 4 mg Documented By: ADRIANA Oxycodone HCl (Oxycodone Hcl Immed Release 5 Mg Tablet) 5 mg G-TUBE Q4H PRN PRN Reason: Pain, Moderate (Pain Scale 4-6 Last Admin: 07/17/22 10:49 Dose: 5 mg Documented By: ADRIANA Senna (Senna [place] Extract Oral Syrup 15 Ml Syrup) 7.5 ml G-TUBE BEDTIME FRANCK Sodium Chloride (0.9 % Sodium Chloride Flush 3 Ml Syringe) 3 ml IVFLUSH QSHIFT [facility]ANCK Last Admin: 07/17/22 07:37 Dose: 3 ml Documented By: ADRIANA Labs CBC & Chem 7: 07/15/22 06:30 07/16/22 05:14 Assessment and Plan (1) Community acquired pneumonia: Status: Acute (2) Aspiration into airway: Status: Acute (3) Acute anemia: Status: Acute (4) Lumbar radiculitis: Status: Acute Plan 71-year-old male with previous medical history of anemia, history of throat cancer status post radiation therapy and esophageal stricture presents the hospital with complaints of chest pain with cough found to have acute anemia. #. Community-acquired pneumonia with concern for aspiration -continue IV Unasyn D7/7, overall feeling better, finger oximetry 99% on room air no fevers, less coughing, will DC Unasyn after today's dose # dysphagia modified barium swallow showed laryngeal penetration and tracheal aspiration with all consistencies Underwent PEG tube placement 07/15 , cont g tube feedings as per legal analyst rec Persistent pain at G-tube site improving with IV Dilaudid, patient cannot have abdominal binder since getting G-tube feedings with risk off a tube kinking Will transition to by mouth Dilaudid/on iv tylenol as needed will transition to by mouth also All meds via G-tube #. Acute symptomatic anemia on chronic anemia Acute blood loss anemia Likely due to epistaxis and nutritional deficiency due to decreased by mouth intake, no overt GI bleed noted -Stool occult positive in ER. -s/p PRBC transfusion. H&H is stable,. GI seen no inpatient endoscopy planned #. Abnormal CT chest with dense opacity in the right upper lobe with additional heterogeneous consolidation in the adjacent superior right lower lobe suspicious for pneumonia though malignancy is difficult to exclude -Will need follow up imaging to rule out malignancy once acute infection resolves in this patient with history of cancer. #. Hypothyroidism -cont. synthroid DVT prophylaxis : SCDs Diet; G-tube feeding Full code need for inaptient stay: Patient started on G-tube feedings will monitor for 24 hours, discharge planning from home with infusion services Quality Stroke Does the patient have a stroke diagnosis?: No VTE Prior VTE?: No VTE Risk Level:: Medical - moderate - high VTE Device Contraindication: N/A - Device Ordered VTE Drug Contraindication: Treatment Not Indicated
[2022-07-18] MEDS: oxyCODONE HCl Immed Release 5 MG TABLET G-TUBE ×2 (03:29→08:34)
[2022-07-18 03:34] VITALS: BP 136/65; PULSE 82; RESP 16; TEMP 36.2; O2SAT 99
[2022-07-18] MEDS: Acetaminophen 1,000 MG/100 ML PIGGYBACK 400 MG IV ×2 (05:18→11:10)
[2022-07-18] MEDS: Levothyroxine Sodium 75 MCG TABLET G-TUBE (05:18)
[2022-07-18 07:30] VITALS: BP 131/64; PULSE 87; RESP 16; TEMP 36.2; O2SAT 98
[2022-07-18] MEDS: Docusate Sodium 100 MG/10 ML LIQUID G-TUBE (08:34)
[2022-07-18] MEDS: Cyanocobalamin (Vitamin B-12) 1,000 MCG TABLET 1000 MCG G-TUBE (08:35)
[2022-07-18] MEDS: Lidocaine 4 % Patch ADH..PATCH 1 PATCH TRANSDERMA (08:35)
[2022-07-18] MEDS: Gabapentin 400 MG CAPSULE G-TUBE (08:35)
[2022-07-18] MEDS: 0.9 % Sodium Chloride Flush 3 ML SYRINGE IVFLUSH (08:50)
[2022-07-18 11:14] VITALS: BP 184/80; PULSE 80; RESP 16; TEMP 36.1; O2SAT 98
--- NOTE | 2022-07-18 11:17 | P.DS_ITS ---
DS: Providers Provider Date of Service: 07/18/22 Date of admission: 07/09/22 23:18 Primary care physician: Tracy Oneill MD Consults: 07/09/22 23:13 Consult to Gastroenterology Routine Consulting Provider: Billy Burt Reason for consultation: GI bleed 07/14/22 10:25 Consult to General Surgery Routine Consulting Provider: Shailesh Frankel Reason for consultation: PEg placement Has provider been notified: No DS: Diagnosis Discharge Diagnosis (1) Community acquired pneumonia: Status: Acute (2) Aspiration into airway: Status: Acute (3) Acute anemia: Status: Acute (4) Lumbar radiculitis: Status: Acute DS: Summary Hospital Course Hospital Course: HISTORY OF PRESENTING ILLNESS Date of Service: 07/09/22 Chief Complaint: Chest pain 71-year-old male with past medical history of throat cancer in 2002, COPD, depression, hyperlipidemia, esophageal strictures, GERD, HTN, history of radiation therapy of the throat, hypothyroidism, presents to the hospital with complaints of chest pain, weakness and dizziness started on day of presentation.? Patient reports that the chest pain is midsternal, worse with deep inspiration, radiating to his arms bilaterally, to his shoulders, as well as to his neck and head.? Patient reports that he has been feeling weak, has had dizziness, and has difficulty ambulating due to the mentioned.? He is complaining of a cough, some sputum production of yellow color.? Reports dyspnea on exertion.? He denies having any fever or chills, no palpitations, no abdominal pain nausea or vomiting, no diarrhea constipation, no urinary symptoms and no lower extremity edema.? Denies any orthopnea or PND.? He denies any melena or bright red blood per rectum. On arrival to the ED patient hemodynamically stable with slightly elevated blood pressure Labs are significant for hemoglobin of 6.5 with hematocrit 20.2 with a baseline from the 03 of July of 8.2 and 25.2, INR of 1.2, stool occult blood positive, troponin negative Patient being transfused PRBC and will be admitted for further management Chest CT shows dense region of the opacity in the right upper lobe with additional heterogeneous consolidation is in superior right lower lobe. Hospital course 71-year-old male with previous medical history of anemia, history of throat cancer status post radiation therapy and esophageal stricture presents the hospital with complaints of chest pain with cough found to have acute anemia as well as community-acquired pneumonia with concern for aspiration. #.? Community-acquired pneumonia with concern for aspiration patient treated with 7 days of IV Unasyn, he is now on room air finger oximetry 99%, patient afebrile with no respiratory symptoms. ? # dysphagia modified barium swallow showed laryngeal penetration and tracheal aspiration with all consistencies, therefore patient kept NPO and PEG tube placed on 07/15 subsequently G-tube feeding started patient is tolerated procedure well ,patient complained of G-tube insertion discomfort therefore treated with IV Dilaudid initially, now transition to by mouth oxycodone, he is recommended to ambulate, and take Tylenol and oxycodone for severe pain, G-tube site with no erythema or drainage. All meds needs to be given through G-tube, being discharged on Osmolite 1.5 at 50 mL/hour ? #.? Acute symptomatic blood loss anemia with history of chronic anemia, patient had epistaxis as outpatient likely contributed to anemia, also has nutritional deficiencies no GI bleed noted, patient seen by Gastroenterology no inpatient endoscopy was recommended patient treated with 1 unit of packed RBC hematocrit remains stable, recommend to continue iron supplements ? #.? Abnormal CT chest with dense opacity in the right upper lobe with additional heterogeneous consolidation in the adjacent superior right lower lobe suspicious for pneumonia though malignancy is difficult to exclude -recommend outpatient CT chest in 3 months #. Hypothyroidism -cont. synthroid Time Spent with Patient Time attestation: Total time spent providing and/or coordinating discharge services: Discharge coordination time: Greater than 30 minutes Quality: Safe Use of Opioids Does Pt have an Active Cancer Diagnosis on the Problem List?: No Quality: Stroke Does the patient have a stroke diagnosis?: No Physical Exam Vital Signs: Vital Signs: Last Vital Signs Temp 97.0 F 07/18/22 11:14 Pulse 80 07/18/22 11:14 Resp 16 07/18/22 11:14 BP 184/80 H 07/18/22 11:14 Pulse Ox 98 07/18/22 11:14 O2 Del Method 07/18/22 11:14 O2 Flow Rate 2 07/17/22 03:36 FiO2 35 07/15/22 10:00 BMI result Body Mass Index 20.7 Const: Other: General awake alert x3, lying in bed?in no distress Neck supple, no JVD CVS Regular rate and rhythm, S1-S2 heard Respiratory clear breath sounds bilaterally, no wheezing or crackles appreciated Abdomen soft , dressing to g- tube site in place, mild tenderness at g tube site ,bowel sounds audible, no guarding, no rigidity Neuro awake, alert and?oriented x3, no focal motor deficit Psych: Normal mood No pedal edema DS: Data Data Completed and Pending Completed studies during hospitalization [Text1]: Procedures Dilation of Esophagus, Via Natural or Artificial Opening Endoscopic (03/04/21) Transfusion of Nonautologous Red Blood Cells into Peripheral Vein, Percutaneous Approach (09/24/21) Discharge Plan Discharge Anticipated Discharge Date/Time: 07/18/22 10:49 Patient Disposition: Home Health Service Discharge Diagnosis: Community-acquired pneumonia Dysphagia Acute symptomatic blood loss anemia Right upper lobe lung density Status post G-tube placement Referrals: [facility] [Other] - 1 Day ([facility] WILL DELIVER YOUR GTUBE NUTRITION (FEED) AND SUPPLIES) [facility] [Outside] - 1 Day (LONG-TERM FOR NEW GTUBE, START OF CARE WILL BE FOR THIS AFTERNOON WHEN YOU GET HOME. ) Tracy Oneill MD [Primary Care Provider] - 1 Week Discharge Medications: New oxycodone 5 mg Tablet 5 mg G-tube Q4H PRN (Reason: Pain, Moderate (Pain Scale 4-6) Qty: 30 0RF Rx Instructions: Partial Fill upon patient request. ferrous sulfate 300 mg (60 mg iron)/5 mL liquid 300 mg PO DAILY Qty: 120 0RF Omeprazole Oral Susp [Prilosec Oral Susp] 40 mg G-tube DAILY@0630 Qty: 240 0RF Continued Anoro Ellipta 62.5-25 mcg/actuation Blister With Device 1 inh INHALATION DAILY albuterol sulfate 90 mcg/actuation HFA aerosol inhaler 2 puff PO Q4H PRN (Reason: for dyspnea) acetaminophen 500 mg tablet 500 mg PO TID PRN (Reason: headache) Changed cyanocobalamin (vitamin B-12) [Vitamin B-12] 1,000 mcg tablet 1,000 mcg feeding tube DAILY Qty: 30 0RF gabapentin 400 mg capsule 400 mg feeding tube TID Qty: 30 0RF levothyroxine 75 mcg tablet 75 mcg feeding tube DAILY@0600 Qty: 30 0RF multivitamin Tablet 1 tab feeding tube DAILY Qty: 30 0RF Discontinued omeprazole 40 mg Capsule,Delayed Release(Dr/Ec) 40 mg PO DAILY naproxen 500 mg Tablet,Delayed Release (Dr/Ec) 500 mg PO BID levocetirizine 5 mg tablet 1 tab PO DAILY PRN (Reason: Allergic Symptoms) ferrous sulfate [FeroSul] 325 mg (65 mg iron) tablet 1 tab PO DAILY Discharge Orders: Discharge Order (Routine); Ordered 07/18/22 Ordered By: Alis Barragan Activity on Discharge: As tolerated Stand Alone Forms: Patient Portal Discharge page Care Plan Goals: Dysphagia, no food by mouth continue G-tube feedings/pneumonia symptoms resolved Recommend CT chest in 3 months to follow-up on right upper lobe consolidation Health Concerns: Take all home medications as prescribed by G-tube Plan of Treatment: Take all medications through G-tube continue tube feeds as ordered, outpatient follow-up with primary care physician RECOMMEND CT CHEST IN 3 MONTHS TO FOLLOW-UP ON ABNORMAL DENSITY RIGHT UPPER LOBE Assessment: As above
--- NOTE | 2022-07-18 11:36 | MHC.CM.PN ---
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 [facility], [facility] AND NSG AWARE.
--- NOTE | 2022-07-18 12:57 | P.F2F_ITS ---
Service Date Service Date: 07/18/22 Encounter Date of encounter: 07/18/22 Reasons for Services Signs and symptoms assessed: Abdominal pain new to G-tube feeding Reason for [facility]: postoperative assessment and/or care and medication treatment Homebound: Leaving the home is medically contraindicated at this time without the asist of a device and/or another person due th the listed conditions above and below. Reason homebound: weakness related to hospital stay Certification: Based on the above findings, I certify that this patient is confined to the home and needs intermittent [facility] care, physical therapy and/or speech therapy, or continues to need occupational therapy. The patient is under my care, and I have initiated the establishment of the plan of care. The patient will be followed by a physician who will periodically review the plan of care.
== END 2022-07-18 13:50 | disposition home health service (06) | DRG 178 ==
LOC: HO.ED 22:32 → HO.EDOVER 07-10 01:02 → HO.S3 07-11 21:33 → HO.EDOVER 07-12 16:11 → HO.S3 07-12 16:11
PROVIDERS: Internal Medicine; Student in an Organized Health Care Education/Training Program; Surgery; Admitting Provider Internal Medicine; Emergency Provider Student in an Organized Health Care Education/Training Program; PCP Internal Medicine; Visit Provider Hospitalist
PROC: 0DH63UZ Insertion of Feeding Device into Stomach, Percutaneous Approach (ICD-10-PCS; CPT 43246; principal; 2022-07-15 07:30)
DX: J69.0 Pneumonitis due to inhalation of food and vomit (principal); D62 Acute posthemorrhagic anemia; R64 Cachexia; E03.9 Hypothyroidism, unspecified; J44.9 Chronic obstructive pulmonary disease, unspecified; E78.5 Hyperlipidemia, unspecified; K21.9 Gastro-esophageal reflux disease without esophagitis; M54.12 Radiculopathy, cervical region; K22.2 Esophageal obstruction; D53.9 Nutritional anemia, unspecified; M54.16 Radiculopathy, lumbar region; R91.8 Other nonspecific abnormal finding of lung field; Z20.822 Contact with and (suspected) exposure to COVID-19; Z68.20 Body mass index [BMI] 20.0-20.9, adult; Z85.21 Personal history of malignant neoplasm of larynx; Z86.16 Personal history of COVID-19; Z92.21 Personal history of antineoplastic chemotherapy; Z92.3 Personal history of irradiation; Z87.891 Personal history of nicotine dependence; Z79.890 Hormone replacement therapy; Z79.899 Other long term (current) drug therapy
CPT/HCPCS: 36415; 71045; 71250; 72125; 74230; 80048; 80053; 82272; 82803; 83605; 84484; 85025; 85027; 85610; 86850; 86900; 86901; 86923; 87040; 87635; 92526; 92610; 92611; 93005; 97161; 97162; 99218; 99285; J0131; J0295; J0690; J1100; J1170; J2250; J2270; J2405; J2795; J3010; P9016

== ENCOUNTER 2022-07-28 12:26 | Emergency (ER) | payer OTHER, SELFPAY ==
[2022-07-28 12:44] VITALS: BP 117/62; BP 120/70; PULSE 100; PULSE 91; RESP 18; TEMP 37.2; O2SAT 94; O2SAT 99; BMI 19.5
--- NOTE | 2022-07-28 12:46 | ED.ABDPAIN ---
HPI - Abdominal Pain General Chief Complaint: Skin/Abscess/Foreign Body Stated Complaint: GTUBE ISSUE PER EMS Time Seen by Provider: 07/28/22 12:31 Source: patient and EMS Mode of arrival: EMS Limitations: no limitations History of Present Illness HPI narrative: 71 yo male here after GT placed 07/15 for esophageal stricture by Dr Frankel with concern for redness/swelling/tenderness around the GT site noted for several days. No fevers, chills. GT is working well per patient. Related Data Home Medications Medication Instructions Recorded Confirmed umeclidinium 62.5 mcg-vilanterol 1 inh inhalation DAILY 06/21/20 07/10/22 25 mcg/actuation powdr for inhalation (Anoro Ellipta) acetaminophen 500 mg tablet 500 mg PO TID PRN headache 05/14/21 07/10/22 albuterol sulfate 90 mcg/actuation 2 puff PO Q4H PRN for dyspnea 03/18/22 07/10/22 aerosol inhaler Previous Rx's Medication Instructions Recorded Omeprazole Oral Susp [PriLOSEC 40 mg G-tube DAILY@0630 #240 mL 07/18/22 Oral Susp] cyanocobalamin (vitamin B-12) 1,000 mcg feeding tube DAILY #30 07/18/22 1,000 mcg tablet (Vitamin B-12) tabs ferrous sulfate 300 mg (60 mg 300 mg (5 mL) PO DAILY #120 mL 07/18/22 iron)/5 mL oral liquid gabapentin 400 mg capsule 400 mg feeding tube TID #30 caps 07/18/22 levothyroxine 75 mcg tablet 75 mcg feeding tube DAILY@0600 #30 07/18/22 tabs multivitamin 1 tab feeding tube DAILY #30 tabs 07/18/22 oxycodone 5 mg tablet 5 mg G-tube Q4H PRN Pain, Moderate 07/18/22 (Pain Scale 4-6 #30 tabs cephalexin 500 mg capsule 500 mg PO TID #21 caps 07/28/22 Allergies Allergy/AdvReac Type Severity Reaction Status Date / Time Penicillins Allergy Rash Verified 06/27/22 09:11 aspirin [ASA] AdvReac Intermediate GI BLEED, Verified 06/27/22 09:11 Headaches Review of Systems Review of Systems Yes all other systems are reviewed and are negative Constitutional: Reports no additional constitutional complaints, Denies body ache(s), Denies chills, Denies fever(s), Denies headache(s) and Denies weakness Eyes: Reports no additional eye complaints and Denies change in vision Reports system reviewed and no additional complaints, except as documented, Denies dizziness, Denies headache(s), Denies nasal congestion, Denies nasal discharge and Denies neck pain Cardiovascular: Reports no additional cardiovascular complaints, Denies chest pain, Denies leg edema and Denies dyspnea Respiratory: Reports no additional respiratory complaints, Denies cough and Denies dyspnea Gastrointestinal: Reports no additional gastrointestinal complaints, Denies abdominal pain, Denies diarrhea, Denies nausea and Denies vomiting Genitourinary: Denies urinary incontinence Musculoskeletal: Reports no additional musculoskeletal complaints, Denies back pain, Denies arthralgias, Denies joint swelling, Denies neck pain, Denies numbness and Denies tingling Skin/Breast: Reports system reviewed and no additional complaints, except as docu, Reports swelling, Reports erythema and Reports rash Reports system reviewed and no additional complaints, except as documented, Denies dizziness, Denies headache(s), Denies numbness, Denies tingling and Denies weakness [facility] Past Medical History Attestation statement: The following information was validated with the patient. Source: old records reviewed and nursing notes reviewed Medical History Anemia Aortic aneurysm Arthritis Back pain Cancer COPD (chronic obstructive pulmonary disease) COVID-19 Depression Difficulty swallowing Elevated cholesterol Esophageal stricture Esophageal stricture GERD (gastroesophageal reflux disease) History of chemotherapy History of epistaxis HTN (hypertension) Hx of radiation therapy Lumbar radiculitis Normocytic anemia Osteoarthritis of left shoulder Post laminectomy syndrome Pulmonary nodule Thyroid disease Surgical History H/O colonoscopy History of back surgery History of esophagogastroduodenoscopy (EGD) History of nasal surgery History of transurethral resection of prostate Family History Family History Father Brain cancer Mother CVD (cardiovascular disease) Maternal Aunt Diabetes Social History Social History Household Members: Spouse Household Members Other:: 3 Housing: Apartment Do you presently have visiting nurse or other home services: No Alcohol intake: never Patient Tobacco Use Status: Former Tobacco user Quit Date: 40 years ago Tobacco use type: Cigarette Cigarette Packs Per Day: 3 Cigarettes Per Day: 60.0 Years Smoked: 25 e-Cigarette/Vaping Use: Never Used Second Hand Smoke Exposure: No Advance Directives: Yes Advance Directives on File: Yes Advance Directives Date on File: 03/04/21 service: No Current occupational status: disabled Physical Exam ED Vital Signs: Vital Signs - 24 hr 07/28/22 12:44 Temperature 99 F Pulse Rate 91 Respiratory Rate 18 Blood Pressure 117/62 Pulse Oximetry 99 Oxygen Delivery Method Room Air BMI result Body Mass Index 19.5 Const General: cooperative, healthy appearing, comfortable and no acute distress Orientation/consciousness: patient oriented x3 Limitations: no limitations HENMT Head: Yes normal to inspection Ears: hearing grossly normal bilaterally Eyes General: appearance normal, both eyes and all related structures Pupils: Equal, round and reactive pupils present Neck Neck: Yes normal visual inspection, Yes full ROM, Yes no lymphadenopathy and Yes no meningeal signs Chest Chest palpation & inspection: normal inspection of the chest Resp Effort & Inspection: normal respiratory effort Auscultation: clear to auscultation bilaterally Cardio Rate: regular rate Rhythm: regular rhythm Peripheral pulses: Peripheral pulses 2+ throughout GI Other: There is some mild tenderness around the G-tube with warmth, redness and firmness. No obvious fluctuance Palpation (GI): Soft to palpation Auscultation: normal bowel sounds General: Yes no CVA tenderness Back/Spine/Pelvis Back: no CVA tenderness Thoracic/Lumbar Spine: thoracic and lumbar spine normal to inspection Neuro General: patient oriented x3, moves all extremities and no meningeal signs Cranial nerves: Yes Equal, round and reactive pupils present Cognition (Neuro): normal cognition Extrem General: Yes normal to inspection, Yes no pedal edema and Yes no calf tenderness MDM - Abdominal Pain MDM Narrative Medical decision making narrative: 71-year-old male with recent G-tube placement here with concern for G-tube infection with redness, swelling and tenderness around the G-tube site. No fevers or chills. Patient was seen a Dr. Frankel is the bedside. Sutures were removed. The G-tube was suggested. Recommended wound care and oral antibiotics. No additional need for labs or imaging. Patient should follow-up with Dr. Frankel in the office. Reviewed worrisome signs and symptoms of when to return to the emergency room. Comfortable plan for discharge home. Medical Records Attestation: I reviewed the patient's medical records. Lab Data Attestation: I reviewed the patient's lab results. Discharge Plan Discharge Clinical Impression: Infection following a procedure, other surgical site, initial encounter Patient Disposition: Home, Self-Care Instructions: Surgical Site Infections (ED) Additional Instructions: Warm compresses several times daily to the area Change dressing twice daily after cleansing the wound Start the antibiotics as prescribed Call Dr. Frankel office to follow-up Prescriptions: New cephalexin 500 mg capsule 500 mg PO TID Qty: 21 0RF No Action Anoro Ellipta 62.5-25 mcg/actuation Blister With Device 1 inh INHALATION DAILY albuterol sulfate 90 mcg/actuation HFA aerosol inhaler 2 puff PO Q4H PRN (Reason: for dyspnea) Omeprazole Oral Susp [Prilosec Oral Susp] 40 mg G-tube DAILY@0630 Qty: 240 0RF multivitamin Tablet 1 tab feeding tube DAILY Qty: 30 0RF gabapentin 400 mg capsule 400 mg feeding tube TID Qty: 30 0RF cyanocobalamin (vitamin B-12) [Vitamin B-12] 1,000 mcg tablet 1,000 mcg feeding tube DAILY Qty: 30 0RF levothyroxine 75 mcg tablet 75 mcg feeding tube DAILY@0600 Qty: 30 0RF ferrous sulfate 300 mg (60 mg iron)/5 mL liquid 300 mg PO DAILY Qty: 120 0RF oxycodone 5 mg Tablet 5 mg G-tube Q4H PRN (Reason: Pain, Moderate (Pain Scale 4-6) Qty: 30 0RF Rx Instructions: Partial Fill upon patient request. acetaminophen 500 mg tablet 500 mg PO TID PRN (Reason: headache) Referrals: Shailesh Frankel MD [Physician] - 5 days
--- NOTE | 2022-07-28 13:49 | P.CONGS_ITS ---
History of Present Illness Consult details Consult date: 07/28/22 Narrative: 71-year-old male here in the ER because of pain and redness around his G-tube site. He had undergone open gastrostomy tube placement for dysphagia secondary to an esophageal stricture because of radiation from throat cancer.cancer last July 12, 2022. He tolerated the procedure well and has been home since last week. He had complained of pain and redness on the Gtube tube site. He otherwise has been tolerating G tube feeds well. He denies any fever or chills. Review of Systems Constitutional: Constitutional: Denies chills and Denies fever(s) Cardiovascular: Cardiovascular: Denies chest pain, Denies dyspnea and Denies dyspnea on exertion Respiratory: Respiratory: Denies cough, Denies dyspnea and Denies dyspnea on exertion Gastrointestinal: Gastrointestinal: Denies hematochezia and Denies change in bowel habits Genitourinary: Genitourinary: Denies hematuria and Denies difficulty urinating Musculoskeletal: Musculoskeletal: Denies back pain and Denies limited range of motion Neurologic: Denies focal weakness and Denies convulsions Psychiatric: Psychiatric: Denies depression and Denies mood swings [facility] Past Medical History Medical History (Updated 07/29/22 @ 00:03 by Background Datri) Anemia Aortic aneurysm Arthritis Back pain Cancer COPD (chronic obstructive pulmonary disease) COVID-19 Depression Difficulty swallowing Elevated cholesterol Esophageal stricture Esophageal stricture GERD (gastroesophageal reflux disease) History of chemotherapy History of epistaxis HTN (hypertension) Hx of radiation therapy Lumbar radiculitis Normocytic anemia Osteoarthritis of left shoulder Pain around PEG tube site Post laminectomy syndrome Pulmonary nodule Thyroid disease Family History Family History Father Brain cancer Mother CVD (cardiovascular disease) Maternal Aunt Diabetes Surgical History Surgical History H/O colonoscopy History of back surgery History of esophagogastroduodenoscopy (EGD) History of nasal surgery History of transurethral resection of prostate Social History Social History Household Members: Spouse Household Members Other:: 3 Housing: Apartment Do you presently have visiting nurse or other home services: No Alcohol intake: never Patient Tobacco Use Status: Former Tobacco user Quit Date: 40 years ago Tobacco use type: Cigarette Cigarette Packs Per Day: 3 Cigarettes Per Day: 60.0 Years Smoked: 25 e-Cigarette/Vaping Use: Never Used Second Hand Smoke Exposure: No Advance Directives Date on File: 03/04/21 service: No Current occupational status: disabled Meds Allergies Allergy/AdvReac Type Severity Reaction Status Date / Time Penicillins Allergy Rash Verified 06/27/22 09:11 aspirin [ASA] AdvReac Intermediate GI BLEED, Verified 06/27/22 09:11 Headaches Home Medications Medication Instructions Recorded Confirmed Last Taken Type umeclidinium 62.5 mcg-vilanterol 1 inh inhalation DAILY 06/21/20 07/10/22 03/17/22 History 25 mcg/actuation powdr for inhalation (Anoro Ellipta) acetaminophen 500 mg tablet 500 mg PO TID PRN headache 05/14/21 07/10/22 09/22/21 History albuterol sulfate 90 mcg/actuation 2 puff PO Q4H PRN for dyspnea 03/18/22 07/10/22 Unknown History aerosol inhaler Physical Exam Vital Signs: Vital Signs: Last Vital Signs Temp 99 F 07/28/22 12:44 Pulse 91 07/28/22 12:44 Resp 18 07/28/22 12:44 BP 117/62 07/28/22 12:44 Pulse Ox 99 07/28/22 12:44 O2 Del Method 07/28/22 12:44 BMI result Body Mass Index 19.5 Const: General: comfortable and no acute distress Orientation/consciousness: patient oriented x3 Neck: Neck: Yes no lymphadenopathy Resp: Auscultation: clear to auscultation bilaterally Cardio: Rhythm: regular rhythm GI: Other: peg tube in place, with redness and induration on the PEG tube site; the external bolster of the the PEG tube appears to be causing pressure on the skin with breakdown and subsequent inflammation Palpation (GI): Soft to palpation, nontender and no guarding Neuro: General: patient oriented x3 Results Labs Labs: All other labs normal. Assessment and Plan (1) Pain around PEG tube site: Status: Acute He has significant induration and redness on the open gastrostomy tube site because of the external bolster causing pressure and subsequent in breakdown on the area. I therefore released the sutures securing this external bolster. Clean the area because of some skin breakdown. I applied dry dressings. He should be started on oral antibiotics I have instructed him on good care with dressing changes on the area. His open gastrostomy tube is actually fun ctioning well. I will see him in the office for follow-up for removal of the rest of his skin monica Procedures Date of Service Date of Service: 07/28/22
== END 2022-07-28 14:03 | disposition home or self-care (01) ==
PROVIDERS: Emergency Provider Emergency Medicine; PCP Internal Medicine
DX: K94.22 Gastrostomy infection (principal); Y83.8 Other surgical procedures as the cause of abnormal reaction of the patient, or of later complication, without mention of misadventure at the time of the procedure; Y92.9 Unspecified place or not applicable
CPT/HCPCS: 99282

== ENCOUNTER 2022-09-03 06:11 | Outpatient (REF) | payer OTHER, SELFPAY ==
--- NOTE | ~2022-09-03 | FL_ITS ---
EXAMINATION: XR FLUOROSCOPY WITH IMAGES CLINICAL INFORMATION: Spondylosis without myelopathy or radiculopathy. COMPARISON: None. TECHNIQUE: Fluoroscopy Supervised By: Consuelo Prado. Fluoroscopy Time: 0.2 minutes. Cumulative Dose: 2.88 mGy. DAP: 0.319 Gycm2. Images: 3. FINDINGS: There are 3 digital images obtained which reveal 3 needles positioned along the left iliac crest. The SI joints are unremarkable. No fracture, lytic or sclerotic process seen. There is L4-L5 pedicular screws with interconnecting kenya. FL/FL guidance in treatment room IMPRESSION: Fluoroscopy guidance was provided to referrer for pain management.
== END 2022-09-03 06:12 | disposition home or self-care (01) ==
LOC: CF 06:11
PROVIDERS: Visit Provider Internal Medicine
DX: M47.819 Spondylosis without myelopathy or radiculopathy, site unspecified (principal); G58.8 Other specified mononeuropathies
CPT/HCPCS: 64493; J3301

== ENCOUNTER 2022-10-09 12:11 | Outpatient (REF) | payer OTHER, SELFPAY ==
[2022-10-09 12:24] LABS: MANUAL DIFF FLAG NO
[2022-10-09 13:25] LABS: Basophils Percent Auto 1.1 % (0-2); Eosinophils Percent Auto 1.5 % (0-4); Hematocrit 31.2 % (42.0-52.0); Hemoglobin 9.6 g/dl (14.0-18.0); Imm Gran Abs Auto 0.01 X10*3/uL (0.00-0.03); Imm Gran Pct Auto 0.4 % (0.0-0.4); Lymphocytes Absolute Auto 0.7 X10*3/uL (1.2-4.9); Lymphocytes Percent Auto 24.7 % (20-40); Mean Corpuscular HGB Conc 30.8 g/dl (31.0-36.0); Mean Corpuscular Hemoglobin 30.2 pg (27.0-33.0); Mean Corpuscular Volume 98.1 fL (80.0-98.0); Mean Platelet Volume 10.6 fL (9.4-12.4); Monocytes Absolute Auto 0.4 X10*3/uL (0.1-1.2); Neutrophils Absolute Auto 1.6 x10*3/uL (2.0-8.3); Neutrophils Percent Auto 58.3 % (45-73); Platelet Count 320 X10*3/uL (160-400); Red Blood Count 3.18 X10*6/uL (4.60-5.80); Red Cell Distribution Width 17.2 % (11.0-16.0); White Blood Count 2.7 X10*3/uL (4.8-10.8)
[2022-10-09 13:53] LABS: Alanine Aminotransferase 14 U/L (0-40); Albumin Level 4.2 g/dL (3.5-5.0); Alkaline Phosphatase 96 U/L (39-117); Anion Gap 11 (12-20); Aspartate Amino Transferase 24 U/L (5-37); Bilirubin Total 0.4 mg/dL (0.0-1.0); Blood Urea Nitrogen 16 mg/dL (9-16); Calcium 9.4 mg/dL (8.4-10.2); Carbon Dioxide 29 mmol/L (22-29); Chloride 103 mmol/L (96-108); Estimated Glomerular Filt Rate > 60; Glucose Random 102 mg/dL (60-115); Potassium 3.8 mmol/L (3.3-5.1); Sodium 139 mmol/L (135-145); Total Protein 7.5 g/dL (6.5-8.0)
== END 2022-10-09 12:12 | disposition home or self-care (01) ==
LOC: HO.LAB 12:11
PROVIDERS: PCP Internal Medicine; Visit Provider Internal Medicine
DX: D38.1 Neoplasm of uncertain behavior of trachea, bronchus and lung (principal); D50.8 Other iron deficiency anemias; K22.2 Esophageal obstruction; Z93.1 Gastrostomy status
CPT/HCPCS: 36415; 80053; 85025

== ENCOUNTER 2022-10-14 14:15 | Outpatient (REF) | payer OTHER, SELFPAY ==
--- NOTE | ~2022-10-14 | CT_ITS ---
EXAMINATION: CT CHEST WITHOUT CONTRAST CLINICAL INFORMATION: Lung mass and pneumonia COMPARISON: Previous chest CT July 2022 TECHNIQUE: Multidetector volumetric CT imaging of the chest was done. Axial MIP volume rendering provided. Sagittal and coronal reformatted images were obtained. This CT examination was performed using dose optimization techniques as appropriate, variously including the following: *Automated exposure control *Adjustment of mA and/or kV according to patient size (this includes techniques or standardized protocols for targeted exams where dose is matched to indication/reason for exam; i.e. extremities or head) *Use of iterative reconstruction technique DLP: 212 mGy-cm FINDINGS: LUNGS: There is increasing volume loss to the right upper lobe. There is significant interval decrease in masslike consolidation in the posterior segment of the right upper lobe with minimal residual airspace disease, focal bronchiectasis and bronchial wall thickening compared to July 2022 exam. Masslike consolidation in the superior segment of the right lower lobe has completely resolved. There are scattered areas of bronchial wall thickening and increased peribronchial attenuation. There are small scattered areas of increased groundglass attenuation. There are small scattered nodular opacities seen throughout the lungs, some of which appear to be associated with focal bronchiectasis. This probably represents airways disease. Increased soft tissue in the inferior trachea anteriorly. This is in a different location from prior exam July 2022 and therefore probably represents patient secretions. MEDIASTINUM: Slightly dilated ascending thoracic aorta measuring 4.4 cm. Upper normal aortic arch and descending thoracic aorta. Significant coronary artery and aortic valve calcification. Small pericardial effusion or thickening. Small esophageal hernia. No enlarged hilar or mediastinal lymph nodes. CORONARY ARTERY CALCIFICATION: Moderate to severe PLEURA: There is no pleural effusion. No pleural mass or thickening. AXILLA: No lymphadenopathy. UPPER ABDOMEN: G-tube. Atherosclerotic disease. Small stable cysts in the left lobe of the liver. OSSEOUS STRUCTURES: Degenerative changes of the spine. CT/CT chest wo IV con IMPRESSION: Previously identified masslike consolidation in the posterior segment of the right upper lobe is significantly decreased in size. Increasing right upper lobe volume loss and scarring and traction bronchiectasis in the posterior segment of the right upper lobe probably representing postinfectious or inflammatory scarring. Previously identified masslike consolidation in the superior segment of the right lower lobe has completely resolved. Scattered areas of bronchial wall thickening, increased peribronchial attenuation and nodular opacities and groundglass attenuation throughout the lungs. This probably represents airways disease. Slightly dilated ascending thoracic aorta measuring 4.4 cm. Atherosclerotic disease and coronary artery calcification. Fleischner guidelines were followed.
== END 2022-10-14 14:16 | disposition home or self-care (01) ==
LOC: HO.CT 14:15
PROVIDERS: PCP Internal Medicine; Visit Provider Internal Medicine
DX: R91.8 Other nonspecific abnormal finding of lung field (principal); J18.9 Pneumonia, unspecified organism
CPT/HCPCS: 71250

== ENCOUNTER → 2022-10-21 13:47 | Outpatient (BNVA) | payer OTHER, SELFPAY | PROVIDERS: PCP Internal Medicine; Visit Provider Internal Medicine Pulmonary Disease | DX: T17.900A Unspecified foreign body in respiratory tract, part unspecified causing asphyxiation, initial encounter (principal); J43.9 Emphysema, unspecified; J84.10 Pulmonary fibrosis, unspecified; R91.8 Other nonspecific abnormal finding of lung field; Z79.899 Other long term (current) drug therapy | CPT/HCPCS: 99212 ==

== ENCOUNTER 2022-11-18 11:13 | Inpatient (IN) | payer OTHER, SELFPAY ==
[2022-11-18] VITALS (8 sets, daily range): BP systolic 68–146; BP diastolic 40–73; PULSE 64–90; RESP 10–19; TEMP 36.6–37; O2SAT 96–99; BMI 21.7
--- NOTE | 2022-11-18 | ECG_ITS ---
Test Reason : CP Blood Pressure : / mmHG Vent. Rate : 065 BPM Atrial Rate : 065 BPM P-R Int : 130 ms QRS Dur : 072 ms QT Int : 434 ms P-R-T Axes : 042 022 047 degrees QTc Int : 451 ms Normal sinus rhythm ST elevation, consider early repolarization, pericarditis, or injury Nonspecific ST and T wave abnormality Abnormal ECG When compared with ECG of 09-JUL-2022 20:10, Nonspecific T wave abnormality now evident in Inferior leads Referred By: Christine Otoole Electronically Signed By:Ilya Lomax
--- NOTE | ~2022-11-18 | XR_ITS ---
EXAMINATION: XR CHEST CLINICAL INFORMATION: Shortness of breath COMPARISON: 07/09/2022 TECHNIQUE: Frontal view of the chest was obtained. FINDINGS: Cardiac leads overlie the chest. The lungs are well expanded. Patchy opacities at the left base. No pleural effusion or pneumothorax. The cardiomediastinal silhouette is within normal limits. XR/XR chest 1V IMPRESSION: Patchy opacities at the left base could be infectious or inflammatory. Aspiration possible.
--- NOTE | ~2022-11-18 | CT_ITS ---
EXAMINATION: CT ANGIOGRAM OF THE CHEST WITH AND WITHOUT CONTRAST (CT PULMONARY ANGIOGRAM FOR PE) CLINICAL INFORMATION: Reason for Exam chest pain, SOB, neck pain COMPARISON: Multiple priors, most recently Chest radiograph from today. CT from 10/14/2022. TECHNIQUE: Prior to contrast administration, noncontrast localization images were obtained. Subsequently, multidetector volumetric imaging was performed from the thoracic inlet to below the diaphragms following the administration of 65 mL Omnipaque 350 intravenous contrast. No contrast reaction reported Sagittal, coronal, and MIP oblique sagittal reformatted images were obtained on the CT workstation, uploaded to PACS, and reviewed. This CT examination was performed using dose optimization techniques as appropriate, variously including the following: *Automated exposure control *Adjustment of mA and/or kV according to patient size (this includes techniques or standardized protocols for targeted exams where dose is matched to indication/reason for exam; i.e. extremities or head) *Use of iterative reconstruction technique Total exam dose-length product 806 mGy-cm, in conjunction with the head CT. FINDINGS: QUALITY OF STUDY/CONTRAST BOLUS: Satisfactory. PULMONARY ARTERIES: No central or segmental pulmonary emboli. THORACIC AORTA: No aneurysm or dissection. LUNG: The central airways are patent. Mild pleural thickening at the lung apices. Patchy opacities are seen in both lungs with consolidative and groundglass appearance. This is greatest in the left lower lobe. This is new/increased from the prior CT. Ill-defined irregular nodule measures 1.3 x 0.8 cm in the right middle lobe along the fissure on series 18 image 210. This is unchanged from the most recent prior. This is decreased in prominence from the CT on 07/10/2022. No pneumothorax. No pleural effusion. MEDIASTINUM: Normal heart size. No pericardial effusion. Coronary artery calcifications noted. No mediastinal lymphadenopathy. No evidence of septal bowing or right heart strain. CORONARY ARTERY CALCIFICATION: Mild . CHEST WALL/AXILLA: No axillary or internal mammary lymphadenopathy. OSSEOUS STRUCTURES: No acute or suspicious osseous abnormality. UPPER ABDOMEN: Small hiatal hernia. Gastrostomy tube noted. No reflux of contrast into the hepatic veins to suggest elevated right heart pressures. CT/CT angio chest PE protocol IMPRESSION: 1. No pulmonary embolism. 2. Patchy opacities are seen in both lungs, greatest in the left lower lobe. This is new from the prior CT. This is concerning for multifocal pneumonia. This has been a waxing and waning appearance. 3. Ill-defined irregular nodule in the right middle lobe along the fissure is unchanged from the most recent prior. This is decreased in prominence from the CT on 07/10/2022. VTE: negative
--- NOTE | ~2022-11-18 | CT_ITS ---
EXAMINATION: CT HEAD WITHOUT CONTRAST CLINICAL INFORMATION: Seizure activity COMPARISON: 03/18/2022 TECHNIQUE: Contiguous axial imaging was performed from the skull base to vertex without intravenous contrast. This CT examination was performed using dose optimization techniques as appropriate, variously including the following: * Automated exposure control * Adjustment of mA and/or kV according to patient size (this includes techniques or standardized protocols for targeted exams where dose is matched to indication/reason for exam; i.e. extremities or head) Use of iterative reconstruction technique DLP: 806 mGy-cm. This is in conjunction with the chest CT. FINDINGS: There is no evidence of acute intracranial hemorrhage or territorial infarction. No abnormal mass effect or midline shift is seen. Stearns to white matter differentiation is well preserved. No extra-axial fluid collections are identified. No hydrocephalus. Proportional prominence of the ventricles and sulcal spaces is consistent with mild volume loss. Patchy periventricular and deep white matter hypoattenuation is consistent with mild small vessel ischemic changes. The osseous structures and soft tissues are normal. The mastoid air cells and visualized portions of the paranasal sinuses are well aerated. CT/CT head/brain wo IV con IMPRESSION: No acute intracranial pathology. Mild volume loss with small vessel ischemic change.
--- NOTE | ~2022-11-18 | XR_ITS ---
EXAMINATION: XR CHEST CLINICAL INFORMATION: Fever COMPARISON: 11/18/2012 TECHNIQUE: Frontal view of the chest was obtained. FINDINGS: The lungs are well expanded. Patchy bilateral airspace opacities. No pleural effusion or pneumothorax. No edema. The cardiomediastinal silhouette is normal in size. XR/XR chest 1V IMPRESSION: Patchy bilateral airspace opacities could be infectious or inflammatory.
--- NOTE | 2022-11-18 11:54 | ED_ITS ---
HPI - Chest Pain General Chief Complaint: Chest Pain Stated Complaint: ?SEIZURE Time Seen by Provider: 11/18/22 11:31 Source: patient, EMS and old records reviewed Mode of arrival: EMS Limitations: no limitations and other (poor historian ) History of Present Illness HPI narrative: 72 y.o male with a PMHx of throat cancer requiring radiation therapy in 2002, dysphagia s/p PEG, anemia, AAA, COPD, syncope secondary to orthostatic hypotention, hyperlipidemia, esophageal strictures, GERD, HTN, hypothyroidism presents to the ED via EMS after being found in the back of his vehicle exhibiting seizure-like activity. Patient is a poor historian, however states he was cleaning snow off his car when his vision became bright , began having chest pain and weakness, and began to shake. Patient reports losing conscious ness for an unknown amount of time. EMS reports one episode of emesis during transport with some convulsive-like movements. Patient endorses left-sided chest pain radiating to the neck, some SOB, and headache. Denies head-trauma or falls, any substance use. MD complaint: chest pain Pertinent past history: known aortic aneurysm Onset (ago): hour(s) Onset: during exertion Pain location: left chest Pain radiation: neck and left shoulder Severity: moderate Related Data Home Medications Medication Instructions Recorded Confirmed umeclidinium 62.5 mcg-vilanterol 1 inh inhalation DAILY 06/21/20 07/10/22 25 mcg/actuation powdr for inhalation (Anoro Ellipta) acetaminophen 500 mg tablet 500 mg PO TID PRN headache 05/14/21 07/10/22 albuterol sulfate 90 mcg/actuation 2 puff PO Q4H PRN for dyspnea 03/18/22 07/10/22 aerosol inhaler Previous Rx's Medication Instructions Recorded Omeprazole Oral Susp [PriLOSEC 40 mg G-tube DAILY@0630 #240 mL 07/18/22 Oral Susp] cyanocobalamin (vitamin B-12) 1,000 mcg feeding tube DAILY #30 07/18/22 1,000 mcg tablet (Vitamin B-12) tabs ferrous sulfate 300 mg (60 mg 300 mg (5 mL) PO DAILY #120 mL 07/18/22 iron)/5 mL oral liquid gabapentin 400 mg capsule 400 mg feeding tube TID #30 caps 07/18/22 levothyroxine 75 mcg tablet 75 mcg feeding tube DAILY@0600 #30 07/18/22 tabs multivitamin 1 tab feeding tube DAILY #30 tabs 07/18/22 oxycodone 5 mg tablet 5 mg G-tube Q4H PRN Pain, Moderate 07/18/22 (Pain Scale 4-6 #30 tabs cefuroxime axetil 500 mg tablet 500 mg PO BID 10 days #20 tabs 10/21/22 Allergies Allergy/AdvReac Type Severity Reaction Status Date / Time Penicillins Allergy Rash Verified 10/21/22 13:50 aspirin [ASA] AdvReac Intermediate GI BLEED, Verified 10/21/22 13:50 Headaches Review of Systems Review of Systems: As stated in HPI Yes all other systems are reviewed and are negative [facility] Past Medical History Medical History Anemia Aortic aneurysm Arthritis Back pain Cancer COPD (chronic obstructive pulmonary disease) COVID-19 Depression Difficulty swallowing Elevated cholesterol Esophageal stricture Esophageal stricture GERD (gastroesophageal reflux disease) History of chemotherapy History of epistaxis HTN (hypertension) Hx of radiation therapy Lumbar radiculitis Normocytic anemia Osteoarthritis of left shoulder Pain around PEG tube site Post laminectomy syndrome Pulmonary nodule Thyroid disease Surgical History H/O colonoscopy History of back surgery History of esophagogastroduodenoscopy (EGD) History of nasal surgery History of transurethral resection of prostate Family History Family History Father Brain cancer Mother CVD (cardiovascular disease) Maternal Aunt Diabetes Social History Social History Household Members: Spouse Household Members Other:: 3 Housing: Apartment Do you presently have visiting nurse or other home services: No Alcohol intake: never Patient Tobacco Use Status: Former Tobacco user Quit Date: 40 years ago Tobacco use type: Cigarette Cigarette Packs Per Day: 3 Cigarettes Per Day: 60.0 Years Smoked: 25 Smoked in Last 30 Days: No e-Cigarette/Vaping Use: Never Used Second Hand Smoke Exposure: No Use of substances other than those prescribed or required for medical reasons: No Advance Directives: Yes Advance Directives on File: Yes Advance Directives Date on File: 03/04/21 service: No Current occupational status: disabled Physical Exam Vital Signs: Vital Signs: Last Vital Signs Temp 98.1 F 11/18/22 12:19 Pulse 66 11/18/22 12:19 Resp 14 11/18/22 12:19 BP 109/53 L 11/18/22 12:19 Pulse Ox 97 11/18/22 12:19 O2 Del Method 11/18/22 12:19 BMI result Body Mass Index 21.7 Appearance: Alert. Oriented X3. No acute distress. Eyes: Pupils equal, round and reactive to light. ENT: Pharynx normal. Neck: Normal inspection. Neck supple. CVS: Normal heart rate and rhythm. Pulses normal. Respiratory: No respiratory distress. Breath sounds normal. Abdomen: Soft and nontender. PEG intact Skin: Skin warm and dry. Normal skin color. Normal skin turgor. No rashes. Extremities: No lower extremity edema. Neuro: Oriented X3. No motor deficit. Chronic L-sided facial droop secondary to radiation. No sensory deficit. Speech slightly garbled. Medications Administered Discontinued Medications Generic Name Dose Route Start Last Admin Trade Name Blairq PRN Reason Stop Dose Admin Sodium Chloride 1,000 mls @ 999 mls/hr 11/18/22 11:45 11/18/22 13:35 Ns IVCONT 11/18/22 12:45 Infused .Q1H1M FRANCK Infusion Cefepime HCl 2 gm/ Sodium 50 mls @ 100 mls/hr 11/18/22 12:31 11/18/22 13:36 Chloride IV 11/18/22 13:00 100 mls/hr ONCE ONE Administration Iohexol 65 ml 11/18/22 12:58 11/18/22 12:58 Iohexol 350 Mg/Ml 100 Ml Infus..Btl IV 11/18/22 12:59 65 ml ONCE ONE Administration Medical Decision Making Medical Decision Making MDM Narrative: 72 y.o male with a PMHx of throat cancer requiring radiation therapy in 2002, dysphagia s/p PEG, anemia, AAA, COPD, syncope secondary to orthostatic hypotention, hyperlipidemia, esophageal strictures, GERD, HTN, hypothyroidism presents to the ED via EMS after being found in the back of his vehicle with seizure-like activity. On physical exam patient is alert and oriented, NAD, and is hypotensive at 95/52 which appears to be his baseline upon chart review. Lungs CTA bilaterally. Mild left sided facial droop noted with slightly garbled speech, which is reportedly chronic secondary to radiation. Neuro exam otherwise WNL. Concern for cardiac process, less concern for infection at this time. Plan: Labs, EKG, CT head, CTA chest 12:15 - received critical result of hemoglobin 6.9, last H+H 1 month ago - stool occult blood positive, will transfuse a unit of blood - denies melena or BRBPR - presentation similar to prior in July 12:45 - CXR reviewed, possible L-sided aspiration pneumonitis vs developing pneumonia - allergic to penicillin, can't give Zosyn,will cover with cefepime for now 1:35 - CTA showed no PE but has bilateral opacities - lactic acid is 2.6 with no other evidence of sepsis at this time -Will plan for admission Differential Diagnosis Differential Diagnoses: The differential diagnosis associated with the presentation includes ACS, CVA, pericarditis, myocarditis, dissection, anemia, GI bleed, seizure, pneumonia, orthostatic hypotension Admission/Observation Consideration of admission/observation: Escalation of care including admission/observation considered acute blood loss requiring tranfusion requires admission and close monitoring Consult Healthcare Provider Management of the patient was discussed with: Hospitalist Lab Data MDM Lab Attestation statement: I reviewed the patient's lab results. acute normocytic anemia - troponin negative which is reassuring for ACS at this time - repeat pending 11/18/22 12:03 11/18/22 12:03 Labs: Lab Results 11/18/22 11/18/22 11/18/22 Range/Units 12:03 12:03 12:03 WBC 6.2 (4.8-10.8) X10*3/uL RBC 2.40 L D (4.60-5.80) X10*6/uL Hgb 6.9 L* D (14.0-18.0) g/dl Hct 22.0 L D (42.0-52.0) % MCV 91.7 (80.0-98.0) fL MCH 28.8 (27.0-33.0) pg MCHC 31.4 (31.0-36.0) g/dl RDW 16.5 H (11.0-16.0) % Plt Count 374 (160-400) X10*3/uL MPV 9.5 (9.4-12.4) fL Immature Gran % (Auto) 0.6 H (0.0-0.4) % Neut % (Auto) 80.2 H (45-73) % Lymph % (Auto) 8.9 L (20-40) % [place] % (Auto) 8.7 (2-11) % Eos % (Auto) 1.0 (0-4) % Baso % (Auto) 0.6 (0-2) % Lymph # (Auto) 0.6 L (1.2-4.9) X10*3/uL [place] # (Auto) 0.5 (0.1-1.2) X10*3/uL Eos # (Auto) 0.1 (0.0-0.4) X10*3/uL Baso # (Auto) 0.0 (0.0-0.2) X10*3/uL Abs Immat Gran (auto) 0.04 H (0.00-0.03) X10*3/uL Absolute Neuts (auto) 5.0 (2.0-8.3) x10*3/uL Absolute Nucleated RBC 0.000 (0.0-0.012) X10*3/uL Nucleated RBC % (auto) 0.0 (0.0-0.2) /100WBC PT (10.0-13.1) SEC INR (0.9-1.1) APTT (26.0-36.4) SEC Sodium 142 (135-145) mmol/L Potassium 3.7 (3.3-5.1) mmol/L Chloride 105 (96-108) mmol/L Carbon Dioxide 27 (22-29) mmol/L Anion Gap 14 (12-20) BUN 20 H (9-16) mg/dL Creatinine 0.86 (0.5-1.4) mg/dL Estim Creat Clear Calc 69.2 Estimated GFR > 60 Random Glucose 91 (60-115) mg/dL Lactic Acid (0.5-2.0) mmol/L Calcium 9.0 (8.4-10.2) mg/dL Magnesium 2.1 (1.6-2.6) mg/dL Total Bilirubin 0.2 (0.0-1.0) mg/dL Direct Bilirubin < 0.2 (0.0-0.5) mg/dL AST 20 (5-37) U/L ALT 10 (0-40) U/L Alkaline Phosphatase 61 (39-117) U/L Total Creatine Kinase 102 (38-174) U/L Troponin I High Sens 5.4 (<3.5-35.0) ng/L B-Natriuretic Peptide (<100) pg/mL Total Protein 6.6 (6.5-8.0) g/dL Albumin 3.7 (3.5-5.0) g/dL TSH (0.32-4.0) uIU/mL Free T4 (0.71-1.85) ng/dL Ethyl Alcohol mg/dL Crossmatch 11/18/22 11/18/22 11/18/22 Range/Units 12:03 12:03 12:03 WBC (4.8-10.8) X10*3/uL RBC (4.60-5.80) X10*6/uL Hgb (14.0-18.0) g/dl Hct (42.0-52.0) % MCV (80.0-98.0) fL MCH (27.0-33.0) pg MCHC (31.0-36.0) g/dl RDW (11.0-16.0) % Plt Count (160-400) X10*3/uL MPV (9.4-12.4) fL Immature Gran % (Auto) (0.0-0.4) % Neut % (Auto) (45-73) % Lymph % (Auto) (20-40) % [place] % (Auto) (2-11) % Eos % (Auto) (0-4) % Baso % (Auto) (0-2) % Lymph # (Auto) (1.2-4.9) X10*3/uL [place] # (Auto) (0.1-1.2) X10*3/uL Eos # (Auto) (0.0-0.4) X10*3/uL Baso # (Auto) (0.0-0.2) X10*3/uL Abs Immat Gran (auto) (0.00-0.03) X10*3/uL Absolute Neuts (auto) (2.0-8.3) x10*3/uL Absolute Nucleated RBC (0.0-0.012) X10*3/uL Nucleated RBC % (auto) (0.0-0.2) /100WBC PT 13.1 (10.0-13.1) SEC INR 1.1 (0.9-1.1) APTT 24.3 L (26.0-36.4) SEC Sodium (135-145) mmol/L Potassium (3.3-5.1) mmol/L Chloride (96-108) mmol/L Carbon Dioxide (22-29) mmol/L Anion Gap (12-20) BUN (9-16) mg/dL Creatinine (0.5-1.4) mg/dL Estim Creat Clear Calc Estimated GFR Random Glucose (60-115) mg/dL Lactic Acid (0.5-2.0) mmol/L Calcium (8.4-10.2) mg/dL Magnesium (1.6-2.6) mg/dL Total Bilirubin (0.0-1.0) mg/dL Direct Bilirubin (0.0-0.5) mg/dL AST (5-37) U/L ALT (0-40) U/L Alkaline Phosphatase (39-117) U/L Total Creatine Kinase (38-174) U/L Troponin I High Sens (<3.5-35.0) ng/L B-Natriuretic Peptide 47 (<100) pg/mL Total Protein (6.5-8.0) g/dL Albumin (3.5-5.0) g/dL TSH 5.23 H (0.32-4.0) uIU/mL Free T4 0.82 (0.71-1.85) ng/dL Ethyl Alcohol < 10 mg/dL Crossmatch 11/18/22 11/18/22 Range/Units 12:04 13:33 WBC (4.8-10.8) X10*3/uL RBC (4.60-5.80) X10*6/uL Hgb (14.0-18.0) g/dl Hct (42.0-52.0) % MCV (80.0-98.0) fL MCH (27.0-33.0) pg MCHC (31.0-36.0) g/dl RDW (11.0-16.0) % Plt Count (160-400) X10*3/uL MPV (9.4-12.4) fL Immature Gran % (Auto) (0.0-0.4) % Neut % (Auto) (45-73) % Lymph % (Auto) (20-40) % [place] % (Auto) (2-11) % Eos % (Auto) (0-4) % Baso % (Auto) (0-2) % Lymph # (Auto) (1.2-4.9) X10*3/uL [place] # (Auto) (0.1-1.2) X10*3/uL Eos # (Auto) (0.0-0.4) X10*3/uL Baso # (Auto) (0.0-0.2) X10*3/uL Abs Immat Gran (auto) (0.00-0.03) X10*3/uL Absolute Neuts (auto) (2.0-8.3) x10*3/uL Absolute Nucleated RBC (0.0-0.012) X10*3/uL Nucleated RBC % (auto) (0.0-0.2) /100WBC PT (10.0-13.1) SEC INR (0.9-1.1) APTT (26.0-36.4) SEC Sodium (135-145) mmol/L Potassium (3.3-5.1) mmol/L Chloride (96-108) mmol/L Carbon Dioxide (22-29) mmol/L Anion Gap (12-20) BUN (9-16) mg/dL Creatinine (0.5-1.4) mg/dL Estim Creat Clear Calc Estimated GFR Random Glucose (60-115) mg/dL Lactic Acid 2.6 H* (0.5-2.0) mmol/L Calcium (8.4-10.2) mg/dL Magnesium (1.6-2.6) mg/dL Total Bilirubin (0.0-1.0) mg/dL Direct Bilirubin (0.0-0.5) mg/dL AST (5-37) U/L ALT (0-40) U/L Alkaline Phosphatase (39-117) U/L Total Creatine Kinase (38-174) U/L Troponin I High Sens (<3.5-35.0) ng/L B-Natriuretic Peptide (<100) pg/mL Total Protein (6.5-8.0) g/dL Albumin (3.5-5.0) g/dL TSH (0.32-4.0) uIU/mL Free T4 (0.71-1.85) ng/dL Ethyl Alcohol mg/dL Crossmatch See Detail Independent Interpretation I performed an independent interpretation of an: EKG, Plain X-Ray and CT Scan Interpretation: EKG - NSR 65bpm - V3 and V4 show 1mm J point elevation, domed ST segment which is significantly changed from last EKG in July CXR - Some patchy infiltrated in L lower lobe - diaphragm visible, no cardiomegaly CTA reviewed - patchy bilateral opacities consistent with pneumonia, no PE - consistent with radiologist reading Radiology Impression Discussion of test interpretation with radiology: I have reviewed the radiologis t's reading. Radiologist Impression: XR chest 1V IMPRESSION: Patchy opacities at the left base could be infectious or inflammatory. Aspiration possible. CT angio chest PE protocol IMPRESSION: 1.? No pulmonary embolism. 2.? Patchy opacities are seen in both lungs, greatest in the left lower lobe. This is new from the prior CT. This is concerning for multifocal pneumonia. This has been a waxing and waning appearance. 3.? Ill-defined irregular nodule in the right middle lobe along the fissure is unchanged from the most recent prior. This is decreased in prominence from the CT on 07/10/2022. Independent Historian Clinical information obtained from an independent historian. History obtained from or confirmed by: EMS External Record Review External record reviewed: Inpatient record, Outpatient record, Prior outpatient labs and Prior outpatient radiology Prescription Management I considered prescription management with: Antibiotic Chronic Conditions Patient?s care impacted by: Other (Dysphagia, COPD, PEG tube, head+neck cancer requiring radiation, pulmonary fibrosis) Critical Care Time Critical Care Time Critical Care Time: Yes Total Critical Care Time: 42 Attestation: I have personally provided critical care time exclusive of time spent on separately billable procedures. Time includes review of lab data, radiology results, discussion with consultants, and monitoring for potential decompensation. Intervention performed as documented. Discharge Plan Discharge Clinical Impression: Acute blood loss anemia, Chest pain, Heme positive stool, Aspiration pneumonitis Patient Disposition: Admitted As Inpatient
[2022-11-18] MEDS: 0.9 % Sodium Chloride 1,000 ML 999 ML IVCONT (12:08)
[2022-11-18 12:11] LABS: MANUAL DIFF FLAG NO
[2022-11-18 12:16] LABS: Basophils Percent Auto 0.6 % (0-2); Eosinophils Absolute Auto 0.1 X10*3/uL (0.0-0.4); Imm Gran Abs Auto 0.04 X10*3/uL (0.00-0.03); Imm Gran Pct Auto 0.6 % (0.0-0.4); Lymphocytes Absolute Auto 0.6 X10*3/uL (1.2-4.9); Lymphocytes Percent Auto 8.9 % (20-40); Mean Corpuscular HGB Conc 31.4 g/dl (31.0-36.0); Mean Corpuscular Hemoglobin 28.8 pg (27.0-33.0); Mean Corpuscular Volume 91.7 fL (80.0-98.0); Mean Platelet Volume 9.5 fL (9.4-12.4); Monocytes Absolute Auto 0.5 X10*3/uL (0.1-1.2); Monocytes Percent Auto 8.7 % (2-11); Neutrophils Percent Auto 80.2 % (45-73); Platelet Count 374 X10*3/uL (160-400); Red Cell Distribution Width 16.5 % (11.0-16.0); White Blood Count 6.2 X10*3/uL (4.8-10.8)
[2022-11-18 12:17] LABS: INTERNATIONAL NORM RATIO 1.1 (0.9-1.1); Prothrombin Time 13.1 SEC (10.0-13.1)
[2022-11-18 12:19] LABS: Hemoglobin 6.9 g/dl (14.0-18.0)
[2022-11-18 12:20] LABS: Partial Thromboplastin Time 24.3 SEC (26.0-36.4)
[2022-11-18 12:37] LABS: Alanine Aminotransferase 10 U/L (0-40); Albumin Level 3.7 g/dL (3.5-5.0); Alkaline Phosphatase 61 U/L (39-117); Anion Gap 14 (12-20); Aspartate Amino Transferase 20 U/L (5-37); Bilirubin Direct < 0.2 mg/dL (0.0-0.5); Bilirubin Total 0.2 mg/dL (0.0-1.0); Blood Urea Nitrogen 20 mg/dL (9-16); Carbon Dioxide 27 mmol/L (22-29); Chloride 105 mmol/L (96-108); Creatinine Clr Calc Pharmacy 69.2; Estimated Glomerular Filt Rate > 60; Ethanol < 10 mg/dL; Glucose Random 91 mg/dL (60-115); Magnesium 2.1 mg/dL (1.6-2.6); Potassium 3.7 mmol/L (3.3-5.1); Sodium 142 mmol/L (135-145); Total Protein 6.6 g/dL (6.5-8.0)
[2022-11-18 12:38] LABS: Troponin-I High Sensitivity 5.4 ng/L (<3.5-35.0)
[2022-11-18 12:39] LABS: B Type Natriuretic Peptide 47 pg/mL (<100)
[2022-11-18 12:41] LABS: Lactic Acid 2.6 mmol/L (0.5-2.0)
[2022-11-18 12:53] LABS: TSH reflex Free T4 5.23 uIU/mL (0.32-4.0)
[2022-11-18] MEDS: iohexoL 350 MG/ML 100 ML INFUS..BTL 65 ML IV (12:58)
[2022-11-18] MEDS: cefEPime HCl 2 GM in 0.9 % Sodium Chloride 50 ML IV (13:36)
[2022-11-18 13:40] LABS: Free T4 (Free Thyroxine) 0.82 ng/dL (0.71-1.85)
[2022-11-18 14:09] LABS: Reflex Lactate? Lactic Acid Added
[2022-11-18 14:10] LABS: Appearance Urine Clear; Color Urine Yellow; Glucose Urine UA Negative (Negative); Leukocyte Esterase Urine Negative (Negative); Nitrite Urine Negative (Negative); PH 7.5 (5.0-9.0); Specific Gravity - Urine >= 1.030 (1.005-1.025); Urine Blood Negative (Negative); Urine Ketones Negative (Negative); Urine Protein Negative (Neg-Trace)
--- NOTE | 2022-11-18 14:15 | PHA.MEDREC ---
Pharmacy Consult ? Medication Reconciliation Pharmacy has completed the medication reconciliation. Patient on both cymbalta and gabapentin Shabbir
[2022-11-18 14:21] LABS: Amphetamine Screen Urine Not Detected (Not Detect); Barbiturates, Urine Not Detected (Not Detect); Benzodiazepines Screen Urine Not Detected (Not Detect); Cannabinoid Screen Urine Not Detected (Not Detect); Cocaine Screen Urine Not Detected (Not Detect); Fentanyl, urine Not Detected (Not Detect); Opiate Screen Urine Not Detected (Not Detect); Phencyclidine Screen Urine Not Detected (Not Detect)
[2022-11-18 15:45] LABS: OBS Int Ctl Valid YES; OBS1 POSITIVE (NEGATIVE)
[2022-11-18 15:57] LABS: ~Lactic Acid-LAB USE ONLY 0.8 mmol/L (0.5-2.0)
--- NOTE | 2022-11-18 16:07 | P.HPHOSP_ITS ---
History of Present Illness Date of Service: 11/18/22 Attending physician on admission: [facility] Chief Complaint: Weakness 72-year-old man presenting to the ER after an episode of chest pain, weakness, blurred vision and shaking. Reports that he got up this morning and felt well he went to his car to clean it off because he had an appointment and suddenly his vision became very right and he was unable to see he was able to lay down in the back of his car and felt very shaky, dizzy and developed substernal chest pain that radiated to both shoulders and his neck posteriorly and lasted about an hour and subsided on its own in the ER. He denied any loss of consciousness. He reported that he called his daughter and she called EMS. When EMS he had an episode of vomiting, as blood pressure was also found to be very low which has been chronic for him due to chronic anemia. He reported that he is very independent, continues to drive. He has had similar episode in July of 2022 and at that time treated for community-acquired pneumonia with aspiration, dysphagia with PEG tube placement and acute symptomatic blood loss anemia. In the ER, his hemoglobin was found to be 6.9, hematocrit 22.0 normal platelet count, positive stool occult, systolic BP in the 90s. He was treated with cefepime, IV fluids. He will be admitted for further management and treatment of symptomatic anemia. Review of Systems Review of Systems: Denies any recent fever chills or decrease in appetite respiratory denies any shortness of breath coverage production cardiovascular see HPI gastrointestinal denies any dysphagia abdominal pain nausea vomiting or diarrhea genitourinary denies any dysuria frequency or hematuria musculoskeletal denies any joint pain or swelling neuropsych see HPI all other systems reviewed are negative [facility] Medical History (Updated 11/18/22 @ 16:13 by Becca Aguilar NP) Aortic aneurysm Arthritis Back pain Cancer COPD (chronic obstructive pulmonary disease) COVID-19 Depression Difficulty swallowing Elevated cholesterol Esophageal stricture GERD (gastroesophageal reflux disease) History of chemotherapy History of epistaxis HTN (hypertension) Hx of radiation therapy Lumbar radiculitis Normocytic anemia Osteoarthritis of left shoulder Pain around PEG tube site Post laminectomy syndrome Pulmonary nodule Thyroid disease Family History Father Brain cancer Mother CVD (cardiovascular disease) Maternal Aunt Diabetes Surgical History H/O colonoscopy History of back surgery History of esophagogastroduodenoscopy (EGD) History of nasal surgery History of transurethral resection of prostate Social History Household Members: Spouse Household Members Other:: 3 Housing: Apartment Do you presently have visiting nurse or other home services: No Alcohol intake: never Patient Tobacco Use Status: Former Tobacco user Quit Date: 40 years ago Tobacco use type: Cigarette Cigarette Packs Per Day: 3 Cigarettes Per Day: 60.0 Years Smoked: 25 Smoked in Last 30 Days: No e-Cigarette/Vaping Use: Never Used Second Hand Smoke Exposure: No Use of substances other than those prescribed or required for medical reasons: No Advance Directives: Yes Advance Directives on File: Yes Advance Directives Date on File: 03/04/21 service: No Current occupational status: disabled Meds Allergies Allergy/AdvReac Type Severity Reaction Status Date / Time Penicillins Allergy Rash Verified 10/21/22 13:50 aspirin [ASA] AdvReac Intermediate GI BLEED, Verified 10/21/22 13:50 Headaches Home Medications Medication Instructions Recorded Confirmed Last Taken Type umeclidinium 62.5 mcg-vilanterol 1 inh inhalation DAILY 06/21/20 11/18/22 03/17/22 History 25 mcg/actuation powdr for inhalation (Anoro Ellipta) albuterol sulfate 90 mcg/actuation 2 puff PO Q4H PRN for dyspnea 03/18/22 11/18/22 Unknown History aerosol inhaler acetaminophen 160 mg/5 mL oral 10 ml TID PRN pain 11/18/22 11/18/22 Unknown History liquid (M-PAP) duloxetine 30 mg capsule,delayed 1 cap PO DAILY 11/18/22 11/18/22 Unknown History release duloxetine 60 mg capsule,delayed 1 cap PO DAILY 11/18/22 11/18/22 Unknown History release fluticasone propionate 110 2 puff inhalation BID 11/18/22 11/18/22 Unknown History mcg/actuation HFA aerosol inhaler (Flovent HFA) fluticasone propionate 50 1 spray intranasal DAILY 11/18/22 11/18/22 Unknown History mcg/actuation nasal spray,suspension folic acid 1 mg tablet 1 tab PO DAILY 11/18/22 11/18/22 Unknown History levocetirizine 5 mg tablet 1 tab PO BEDTIME 11/18/22 11/18/22 Unknown History omeprazole 40 mg capsule,delayed 1 cap PO DAILY 11/18/22 11/18/22 Unknown History release tizanidine 4 mg tablet 1 tab PO BEDTIME 11/18/22 11/18/22 Unknown History triamcinolone acetonide 0.5 % 1 appl topical BID 11/18/22 11/18/22 Unknown History topical cream Physical Exam Vital Signs and Narrative: Vital Signs: Last Vital Signs Temp 98.1 F 11/18/22 12:19 Pulse 78 11/18/22 13:51 Resp 12 11/18/22 13:51 BP 111/54 L 11/18/22 13:51 Pulse Ox 99 11/18/22 13:51 O2 Del Method 11/18/22 13:51 BMI result Body Mass Index 21.7 Appearing in no acute distress head is normocephalic atraumatic eyes pupils are PERRLA sclera is anicteric mouth throat mucous membranes are intact and moist neck is supple no lymphadenopathy, no JVD noted lung sounds are clear to auscultation heart regular rate rhythm, clear S1, S2 positive bowel sounds, abdomen is soft, nontender neuro patient is alert x3, no focal deficits Results Labs 11/18/22 12:03 11/18/22 12:03 Labs: Laboratory Results - last 24 hr 11/18/22 11/18/22 11/18/22 12:03 12:03 12:03 MCV 91.7 MCH 28.8 MCHC 31.4 RDW 16.5 H Plt Count 374 MPV 9.5 Immature Gran % (Auto) 0.6 H Neut % (Auto) 80.2 H Lymph % (Auto) 8.9 L Randolph % (Auto) 8.7 Eos % (Auto) 1.0 Baso % (Auto) 0.6 Lymph # (Auto) 0.6 L Randolph # (Auto) 0.5 Eos # (Auto) 0.1 Baso # (Auto) 0.0 Abs Immat Gran (auto) 0.04 H Absolute Neuts (auto) 5.0 Absolute Nucleated RBC 0.000 Nucleated RBC % (auto) 0.0 PT INR APTT Anion Gap 14 Estim Creat Clear Calc 69.2 Estimated GFR > 60 Random Glucose 91 Lactic Acid Lactic Acid F/U @ 2Hr Calcium 9.0 Magnesium 2.1 Total Bilirubin 0.2 Direct Bilirubin < 0.2 AST 20 ALT 10 Alkaline Phosphatase 61 Total Creatine Kinase 102 Troponin I High Sens 5.4 B-Natriuretic Peptide Total Protein 6.6 Albumin 3.7 TSH Free T4 Urine Color Urine Appearance Urine pH Ur Specific [place] Urine Protein Urine Glucose (UA) Urine Ketones Urine Blood Urine Nitrite Ur Leukocyte Esterase Stool Occult Blood Urine Opiates Screen Urine Fentanyl Screen Ur Barbiturates Screen Ur Phencyclidine Scrn Ur Amphetamines Screen U Benzodiazepines Scrn Urine Cocaine Screen U Marijuana (THC) Screen Ethyl Alcohol Blood Type Antibody Screen Crossmatch 11/18/22 11/18/22 11/18/22 12:03 12:03 12:03 MCV MCH MCHC RDW Plt Count MPV Immature Gran % (Auto) Neut % (Auto) Lymph % (Auto) Randolph % (Auto) Eos % (Auto) Baso % (Auto) Lymph # (Auto) Randolph # (Auto) Eos # (Auto) Baso # (Auto) Abs Immat Gran (auto) Absolute Neuts (auto) Absolute Nucleated RBC Nucleated RBC % (auto) PT 13.1 INR 1.1 APTT 24.3 L Anion Gap Estim Creat Clear Calc Estimated GFR Random Glucose Lactic Acid Lactic Acid F/U @ 2Hr Calcium Magnesium Total Bilirubin Direct Bilirubin AST ALT Alkaline Phosphatase Total Creatine Kinase Troponin I High Sens B-Natriuretic Peptide 47 Total Protein Albumin TSH 5.23 H Free T4 0.82 Urine Color Urine Appearance Urine pH Ur Specific [place] Urine Protein Urine Glucose (UA) Urine Ketones Urine Blood Urine Nitrite Ur Leukocyte Esterase Stool Occult Blood Urine Opiates Screen Urine Fentanyl Screen Ur Barbiturates Screen Ur Phencyclidine Scrn Ur Amphetamines Screen U Benzodiazepines Scrn Urine Cocaine Screen U Marijuana (THC) Screen Ethyl Alcohol < 10 Blood Type Antibody Screen Crossmatch 11/18/22 11/18/22 11/18/22 12:04 13:33 13:44 MCV MCH MCHC RDW Plt Count MPV Immature Gran % (Auto) Neut % (Auto) Lymph % (Auto) Randolph % (Auto) Eos % (Auto) Baso % (Auto) Lymph # (Auto) Randolph # (Auto) Eos # (Auto) Baso # (Auto) Abs Immat Gran (auto) Absolute Neuts (auto) Absolute Nucleated RBC Nucleated RBC % (auto) PT INR APTT Anion Gap Estim Creat Clear Calc Estimated GFR Random Glucose Lactic Acid 2.6 H* Lactic Acid F/U @ 2Hr Calcium Magnesium Total Bilirubin Direct Bilirubin AST ALT Alkaline Phosphatase Total Creatine Kinase Troponin I High Sens B-Natriuretic Peptide Total Protein Albumin TSH Free T4 Urine Color Yellow Urine Appearance Clear Urine pH 7.5 Ur Specific [place] >= 1.030 H Urine Protein Negative Urine Glucose (UA) Negative Urine Ketones Negative Urine Blood Negative Urine Nitrite Negative Ur Leukocyte Esterase Negative Stool Occult Blood Urine Opiates Screen Urine Fentanyl Screen Ur Barbiturates Screen Ur Phencyclidine Scrn Ur Amphetamines Screen U Benzodiazepines Scrn Urine Cocaine Screen U Marijuana (THC) Screen Ethyl Alcohol Blood Type O Positive Antibody Screen NEGATIVE Crossmatch See Detail 11/18/22 11/18/22 11/18/22 13:49 15:39 15:39 MCV MCH MCHC RDW Plt Count MPV Immature Gran % (Auto) Neut % (Auto) Lymph % (Auto) Randolph % (Auto) Eos % (Auto) Baso % (Auto) Lymph # (Auto) Randolph # (Auto) Eos # (Auto) Baso # (Auto) Abs Immat Gran (auto) Absolute Neuts (auto) Absolute Nucleated RBC Nucleated RBC % (auto) PT INR APTT Anion Gap Estim Creat Clear Calc Estimated GFR Random Glucose Lactic Acid Lactic Acid F/U @ 2Hr 0.8 Calcium Magnesium Total Bilirubin Direct Bilirubin AST ALT Alkaline Phosphatase Total Creatine Kinase Troponin I High Sens B-Natriuretic Peptide Total Protein Albumin TSH Free T4 Urine Color Urine Appearance Urine pH Ur Specific [place] Urine Protein Urine Glucose (UA) Urine Ketones Urine Blood Urine Nitrite Ur Leukocyte Esterase Stool Occult Blood POSITIVE Urine Opiates Screen Not Detected Urine Fentanyl Screen Not Detected Ur Barbiturates Screen Not Detected Ur Phencyclidine Scrn Not Detected Ur Amphetamines Screen Not Detected U Benzodiazepines Scrn Not Detected Urine Cocaine Screen Not Detected U Marijuana (THC) Screen Not Detected Ethyl Alcohol Blood Type Antibody Screen Crossmatch Imaging Radiologist's Impressions: Impressions Chest X-Ray 11/18/22 12:15 IMPRESSION: Patchy opacities at the left base could be infectious or inflammatory. Aspiration possible. Head CT 11/18/22 13:01 IMPRESSION: No acute intracranial pathology. Mild volume loss with small vessel ischemic change. Chest CTA 11/18/22 13:02 IMPRESSION: 1. No pulmonary embolism. 2. Patchy opacities are seen in both lungs, greatest in the left lower lobe. This is new from the prior CT. This is concerning for multifocal pneumonia. This has been a waxing and waning appearance. 3. Ill-defined irregular nodule in the right middle lobe along the fissure is unchanged from the most recent prior. This is decreased in prominence from the CT on 07/10/2022. VTE: negative Assessment and Plan (1) Acute blood loss anemia: Status: Acute Plan 72-year-old Armenian-speaking male admitted with symptomatic anemia and hypotension Acute on chronic anemia, unspecified H&H 6.9/22.0 1 unit PRBC ordered in the ER Check H&H post transfusion Hematology consultation Iron studies PPI Hypotension Secondary to anemia and possibly some component of hypovolemia Avoid any blood pressure lowering medications Transfuse blood Follow blood pressure closely Chest pain Some anterior changes noted Chest pain has resolved Troponin 12.1 Monitor on telemetry Chronic dysphagia, history of esophageal cancer status post radiation G-tube over night tube feeds nutrition consult Mental health Continue home medications Hypothyroidism Continue levothyroxine DVT prophylaxis with pneumatic compression boots to [address] Lofton Full code Patient requires 2 inpatient midnights for treatment of acute anemia requiring blood transfusion Time Spent With Patient Time: Total time managing care of this patient today ____ minutes. Quality Stroke Does the patient have a stroke diagnosis?: No VTE Prior VTE?: No VTE Risk Level:: Medical - moderate - high VTE Device Contraindication: N/A - Device Ordered VTE Drug Contraindication: Treatment Not Indicated
[2022-11-18 16:08] LABS: Troponin-I High Sensitivity 12.1 ng/L (<3.5-35.0)
[2022-11-18 17:06] LABS: Immature Retic Fraction 27.2 % (2.3-13.4); Retic HGB Equivalent 27.1 pg (30.0-35.0); Reticulocyte Percent 1.5 % (0.5-1.8); Reticulocytes Absolute 0.037 X10*6/uL (0.026-0.095)
[2022-11-18 17:18] LABS: Iron 27 mcg/dL (45-160); Lactate Dehydrogenase 195 U/L (118-273); Percent Iron Saturation 9 % (15-50); Total Iron Binding Capacity 317 mcg/dL (228-428); Unsaturated Iron Binding 290 ug/dL
[2022-11-18] MEDS: Acetaminophen 325 MG TABLET 650 MG PO (17:34)
[2022-11-18 17:54] LABS: Ferritin 26 ng/mL (20-250); Folate > 20.0 ng/mL (> or = 4.0); Vitamin B12 1038 pg/mL (200-900)
--- NOTE | 2022-11-18 19:15 | PC.NURSE ---
assumed care of patient at 1900
[2022-11-18 20:00] LABS: COVID-19 Test Negative (Negative); IDNOW Serial# 6674DD1D
[2022-11-18 20:21] LABS: Hematocrit 24.7 % (42.0-52.0)
--- NOTE | 2022-11-18 21:23 | MHC.CM.PN ---
IMM 11/18. CM met with admitted patient with bed assignment pending. A&Ox4. Lives with . Has PEG tube. Independent. Drives. [employer] x[employer]. No DME/Services. HCP on file. D/C plan: Home without services. Family will transport home.
[2022-11-18] MEDS: Gabapentin 400 MG CAPSULE G-TUBE (21:26)
[2022-11-18] MEDS: TiZANidine HCL 4 MG TABLET PO (21:26)
--- NOTE | 2022-11-18 21:45 | PC.NURSE ---
patient resting comfortably on stretcher, urinal emptied and new one provided. vital signs updated, call pace within reach. bedtime medications administered through feeding tube. pt tolerated well. pt requesting tramadol for chronic pain, states he takes at home. will reach out to hospitalist.
--- NOTE | 2022-11-18 23:24 | PC.NURSE ---
tube feed started at 23:20. started at 40ml/hr per dietitian orders. running well no issues will continue to monitor
[2022-11-19] VITALS (9 sets, daily range): BP systolic 110–149; BP diastolic 54–68; PULSE 68–98; RESP 12–21; TEMP 36.3–37.4; O2SAT 94–96
[2022-11-19] MEDS: traMADoL HCL 50 MG TABLET PO ×2 (00:59→20:11)
[2022-11-19] MEDS: Omeprazole 20 MG CAPSULE.DR PO (00:59)
[2022-11-19] MEDS: ondansetron HCL 4 MG/2 ML VIAL IVPUSH ×2 (01:00→20:56)
--- NOTE | 2022-11-19 01:30 | PC.NURSE ---
tube feeding rate changed to 60ml/hr per orders.
[2022-11-19] MEDS: Levothyroxine Sodium 75 MCG TABLET G-TUBE (06:21)
--- NOTE | 2022-11-19 06:28 | PC.NURSE ---
tube feed running at 100ml/hr per dietitian orders. feeding to be stopped at 0730 for 8 hr total feed.patient resting comfortably on stretcher. needs met. will CTM
[2022-11-19 06:45] LABS: Alanine Aminotransferase 8 U/L (0-40); Albumin Level 3.4 g/dL (3.5-5.0); Alkaline Phosphatase 63 U/L (39-117); Anion Gap 11 (12-20); Aspartate Amino Transferase 20 U/L (5-37); Bilirubin Total 0.8 mg/dL (0.0-1.0); Blood Urea Nitrogen 17 mg/dL (9-16); Calcium 8.6 mg/dL (8.4-10.2); Carbon Dioxide 27 mmol/L (22-29); Chloride 107 mmol/L (96-108); Estimated Glomerular Filt Rate > 60; Glucose Random 111 mg/dL (60-115); Potassium 3.8 mmol/L (3.3-5.1); Sodium 141 mmol/L (135-145); Total Protein 6.1 g/dL (6.5-8.0)
[2022-11-19 06:48] LABS: Iron 325 mcg/dL (45-160); Percent Iron Saturation 93 % (15-50); Total Iron Binding Capacity 350 mcg/dL (228-428); Unsaturated Iron Binding < 25 ug/dL
[2022-11-19] MEDS: Fluticasone Propionate 100 MCG BLST.W.DEV 2 PUFF INHALE (07:37)
--- NOTE | 2022-11-19 08:43 | PM.GICN ---
History of Present Illness Data of Consult Service Date: 11/19/22 [facility] Primary Care Provider: Tracy Oneill MD HPI Reason for consult: anemia 72-year-old man w hx of hypertension, hyperlipidemia, COPD, history of throat cancer status post chemotherapy/radiotherapy; history of? aortic aneurysm, PEG tube, anemia, thyroid disease, who I am seeing for assessment of anemia He had an episode of visual disturbance, substernal chest discomfort and nausea with non bloody emesis this morning. he also felt dizzy and lightheaded but no LOC. He has had few similar episodes in the past associated with anemia, and again this time he was noted to have hgb 6.9 and got transfused blood and feels back to baseline now. He still has nose bleeds maybe few times a month, denies melena, rectal bleeding, abdominal pain, hematuria. No nsaid use. No bloody aspirate from G tube. In the ER, his hemoglobin was found to be 6.9, hematocrit 22.0 normal platelet count, positive stool occult, systolic BP in the 90s--his last HGB 10/2022 was 9 g/dl Review of Systems Review of Systems: Constitutional : No Weight loss, No Fever, No Chills ENT/Mouth : No sore throat, No Rhinorrhea Eyes: No Swelling, No Redness Cardiovascular : No Chest Pain, No SOB, No Edema Respiratory : No Cough, No Sputum, No Wheezing Gastrointestinal : see HPI--chronic dysphagia Genitourinary : NO Dysuria, No Urinary Frequency, No Hematuria, No Urgency Musculoskeletal : No joint pain, No Myalgias, No Joint Swelling Skin : No Skin Lesions, No rash Neuro : No Weakness, No Numbness, No Dizziness, No Headache Psych : No Anxiety/Panic, No Depression Heme/Lymph: No Bruising, No Lymphadenopathy Endocrine : No Polyuria, No Polydipsia All other systems reviewed and are negative. [facility] Past Medical History Medical History (Updated 11/19/22 @ 09:13 by Diamond Foster MD) Aortic aneurysm Arthritis Back pain Cancer COPD (chronic obstructive pulmonary disease) COVID-19 Depression Difficulty swallowing Elevated cholesterol Esophageal stricture GERD (gastroesophageal reflux disease) History of chemotherapy History of epistaxis HTN (hypertension) Hx of radiation therapy Lumbar radiculitis Normocytic anemia Osteoarthritis of left shoulder Pain around PEG tube site Post laminectomy syndrome Pulmonary nodule Thyroid disease Family History Family History Father Brain cancer Mother CVD (cardiovascular disease) Maternal Aunt Diabetes Surgical History Surgical History (Updated 11/19/22 @ 09:13 by Diamond Foster MD) H/O colonoscopy History of back surgery History of esophagogastroduodenoscopy (EGD) History of nasal surgery History of transurethral resection of prostate Social History Social History Household Members: Spouse Household Members Other:: 3 Housing: Apartment Do you presently have visiting nurse or other home services: No Alcohol intake: never Patient Tobacco Use Status: Former Tobacco user Quit Date: 40 years ago Tobacco use type: Cigarette Cigarette Packs Per Day: 3 Years Smoked: 25 Smoked in Last 30 Days: No e-Cigarette/Vaping Use: Never Used Second Hand Smoke Exposure: No Use of substances other than those prescribed or required for medical reasons: No Advance Directives: Yes Advance Directives on File: Yes Advance Directives Date on File: 03/04/21 service: No Current occupational status: disabled Meds Allergies Allergy/AdvReac Type Severity Reaction Status Date / Time Penicillins Allergy Rash Verified 10/21/22 13:50 aspirin [ASA] AdvReac Intermediate GI BLEED, Verified 10/21/22 13:50 Headaches Active Medications: Current Medications Acetaminophen (Acetaminophen 325 Mg Tablet) 650 mg PO Q6H PRN PRN Reason: Pain, Mild (Pain Scale 1-3) Last Admin: 11/18/22 17:34 Dose: 650 mg Albuterol Sulfate (Albuterol Sulfate 90 Mcg 8 Gm Inhaler) 2 puff INHALE RQ4H PRN PRN Reason: for dyspnea Cyanocobalamin (Cyanocobalamin (Vitamin B-12) 1,000 Mcg Tablet) 1,000 mcg G-TUBE DAILY [facility] Duloxetine HCl (Duloxetine Hcl 30 Mg Capsule.Dr) 30 mg PO DAILY [facility] Duloxetine HCl (Duloxetine Hcl 60 Mg Capsule.Dr) 60 mg PO DAILY [facility] Fluticasone Propionate (Fluticasone Propionate 100 Mcg Blst.W.Dev) 2 puff INHALE RBID [facility] Last Admin: 11/19/22 07:37 Dose: 2 puff Fluticasone Propionate (Fluticasone Propionate Nasal 16 Gm [place]) 1 spray NOSTRIL-B DAILY REPLACED BY [facility] Folic Acid (Folic Acid 1 Mg Tablet) 1 mg PO DAILY REPLACED BY [facility] Gabapentin (Gabapentin 400 Mg Capsule) 400 mg G-TUBE TID REPLACED BY [facility] Last Admin: 11/18/22 21:26 Dose: 400 mg Levothyroxine Sodium (Levothyroxine Sodium 75 Mcg Tablet) 75 mcg G-TUBE DAILY@0600 REPLACED BY [facility] Last Admin: 11/19/22 06:21 Dose: 75 mcg Multivitamins/Vitamin C (Multivitamin Tablet) 1 tab PO DAILY REPLACED BY [facility] Non-Formulary Medication (Levocetirizine) 1 tab PO BEDTIME REPLACED BY [facility] Non-Formulary Medication (Umeclidinium-Vilanterol [Anoro Ellipta]) 1 inhalation INHALE DAILY REPLACED BY [facility] Omeprazole (Omeprazole 40 Mg Capsule.Dr) 40 mg PO DAILY@0630 REPLACED BY [facility] Ondansetron HCl (Ondansetron Hcl 4 Mg/2 Ml Vial) 4 mg IVPUSH Q8H PRN PRN Reason: Nausea and Vomiting Last Admin: 11/19/22 01:00 Dose: 4 mg Sodium Chloride (0.9 % Sodium Chloride Flush 3 Ml Syringe) 3 ml IVFLUSH QSHIFT REPLACED BY [facility] Last Admin: 11/19/22 01:02 Dose: Not Given Tizanidine HCl (Tizanidine Hcl 4 Mg Tablet) 4 mg PO BEDTIME REPLACED BY [facility] Last Admin: 11/18/22 21:26 Dose: 4 mg Home Medications Medication Instructions Recorded Confirmed Last Taken Type umeclidinium 62.5 mcg-vilanterol 1 inh inhalation DAILY 06/21/20 11/18/22 03/17/22 History 25 mcg/actuation powdr for inhalation (Anoro Ellipta) albuterol sulfate 90 mcg/actuation 2 puff PO Q4H PRN for dyspnea 03/18/22 11/18/22 Unknown History aerosol inhaler acetaminophen 160 mg/5 mL oral 10 ml TID PRN pain 11/18/22 11/18/22 Unknown History liquid (M-PAP) duloxetine 30 mg capsule,delayed 1 cap PO DAILY 11/18/22 11/18/22 Unknown History release duloxetine 60 mg capsule,delayed 1 cap PO DAILY 11/18/22 11/18/22 Unknown History release fluticasone propionate 110 2 puff inhalation BID 11/18/22 11/18/22 Unknown History mcg/actuation HFA aerosol inhaler (Flovent HFA) fluticasone propionate 50 1 spray intranasal DAILY 11/18/22 11/18/22 Unknown History mcg/actuation nasal spray,suspension folic acid 1 mg tablet 1 tab PO DAILY 11/18/22 11/18/22 Unknown History levocetirizine 5 mg tablet 1 tab PO BEDTIME 11/18/22 11/18/22 Unknown History omeprazole 40 mg capsule,delayed 1 cap PO DAILY 11/18/22 11/18/22 Unknown History release tizanidine 4 mg tablet 1 tab PO BEDTIME 11/18/22 11/18/22 Unknown History triamcinolone acetonide 0.5 % 1 appl topical BID 11/18/22 11/18/22 Unknown History topical cream tramadol 50 mg tablet 1 tab PO TID PRN pain 11/19/22 11/19/22 Unknown History Physical Exam Vital Signs: Vital Signs: Last Vital Signs Temp 98.7 F 11/19/22 07:25 Pulse 98 11/19/22 07:39 Resp 16 11/19/22 07:39 BP 118/58 L 11/19/22 07:25 Pulse Ox 96 11/19/22 07:25 O2 Del Method 11/19/22 04:01 BMI result Body Mass Index 21.7 EXAM: GENERAL: The patient is thin VITAL SIGNS:see workflow HEENT: Nonicteric sclerae, PERRLA, EOMI. Oropharynx clear. Moist mucous membranes. Conjunctivae appear well perfused. No thyroid mass. CHEST: Chest wall is nontender. HEART: Regular rate and rhythm without murmurs. LUNGS: Clear to auscultation bilaterally. ABDOMEN: Soft, positive bowel sounds, nontender, no organomegaly.no flank tenderness--g tube noted SKIN: No rash, no excessive bruising, petechiae, or purpura. NEUROLOGIC: Cranial nerves II-XII intact without motor/sensory deficit. pscyh--nml affect Results Labs 11/18/22 20:15 11/19/22 05:24 Labs: Short CBC 11/18/22 11/18/22 Range/Units 12:03 20:15 WBC 6.2 (4.8-10.8) X10*3/uL Hgb 6.9 L* D 8.0 L (14.0-18.0) g/dl Hct 22.0 L D 24.7 L (42.0-52.0) % Plt Count 374 (160-400) X10*3/uL BMP 11/18/22 11/19/22 12:03 05:24 Sodium 142 141 Potassium 3.7 3.8 Chloride 105 107 Carbon Dioxide 27 27 BUN 20 H 17 H Creatinine 0.86 0.70 Calcium 9.0 8.6 Cardiac Enzymes 11/18/22 Range/Units 12:03 Total Creatine Kinase 102 (38-174) U/L Liver Function 11/18/22 11/19/22 Range/Units 12:03 05:24 Total Bilirubin 0.2 0.8 (0.0-1.0) mg/dL Direct Bilirubin < 0.2 (0.0-0.5) mg/dL AST 20 20 (5-37) U/L ALT 10 8 (0-40) U/L Alkaline Phosphatase 61 63 (39-117) U/L Albumin 3.7 3.4 L (3.5-5.0) g/dL Urine 11/18/22 Range/Units 13:44 Urine Color Yellow Urine Appearance Clear Urine pH 7.5 (5.0-9.0) Ur Specific [place] >= 1.030 H (1.005-1.025) Urine Protein Negative (Neg-Trace) mg/dL Urine Glucose (UA) Negative (Negative) mg/dL Assessment and Plan (1) Acute blood loss anemia: Status: Acute Plan 1/ Acute on chronic anemia, no overt bleeding, but he has not had a colonoscopy, had plenty of EGD with esophagitis noted in past. PLAN: 1/ Prep for EGD and colonoscopy tomorrow, can give the prep thru the G tube, keep on clears and hold the tube feeds 2/ check hemolysis screen Time Spent With Patient Time: Total time managing care of this patient today ____ minutes. Procedures Date of Service Date of Service: 11/19/22
--- NOTE | 2022-11-19 08:46 | PM.HEMONCCN ---
Subjective - Subjective Chief complaint: Generalized weakness Patient: new to practice Consult date: 11/19/22 Requesting Physician: Becca Aguilar NP Primary Care Provider: Tracy Oneill MD HPI - Consult Narrative Reason for consult: Anemia Narrative: Lawrence Pedersen is a 72 year old male with multiple medical problems and admissions in the recent years who is presenting with generalized weakness, near syncope and found to have acute worsening of chronic anemia. His past medical history significant for throat cancer in 2002, COPD, depression, hyperlipidemia, esophageal stricture and hypothyroidism. He had PEG tube placement because of dysphagia secondary to esophageal stricture in July 2022. Last year he presented with lower GI bleeding and subsequently pneumonia. His baseline hemoglobin is between 9-10 gram/dL. He has been diagnosed with iron deficiency, unable to take iron supplementation because of constipation. He has not received parenteral iron therapy. He denies any recent hematochezia or melena. He was found to have positive stool occult and he has iron deficiency. He received 1 unit PRBC yesterday. He has received multiple blood transfusions last year. He does not report fever or chills. No chest pain. Review of Systems - Constitutional Reports as per HPI, Reports fatigue, Reports lack of energy, Reports malaise, Reports weight loss - Cardiovascular Denies chest pain with activity - Respiratory Reports no additional respiratory complaints - Gastrointestinal Reports no additional gastrointestinal complaints, Denies abdominal pain, Denies black, tarry stools PMFSH Medical History: Medical History (Last Updated 11/18/22 @ 16:13 by Becca Aguilar NP) Aortic aneurysm Arthritis Back pain Cancer COPD (chronic obstructive pulmonary disease) COVID-19 Depression Difficulty swallowing Elevated cholesterol Esophageal stricture GERD (gastroesophageal reflux disease) History of chemotherapy History of epistaxis HTN (hypertension) Hx of radiation therapy Lumbar radiculitis Normocytic anemia Osteoarthritis of left shoulder Pain around PEG tube site Post laminectomy syndrome Pulmonary nodule Thyroid disease Family History: Family History (Last Reviewed 08/06/22 @ 13:24 by Shailesh Frankel MD) Father Brain cancer Mother CVD (cardiovascular disease) Maternal Aunt Diabetes Surgical History: Surgical History (Last Reviewed 08/06/22 @ 13:24 by Shailesh Frankel MD) H/O colonoscopy History of back surgery History of esophagogastroduodenoscopy (EGD) History of nasal surgery History of transurethral resection of prostate Social History: Social History (Last Reviewed 08/06/22 @ 13:24 by Shailesh Frankel MD) Living Situation History: Household Members: Spouse Household Members Other:: 3 Housing: Apartment Do you presently have visiting nurse or other home services: No Tobacco History: Patient Tobacco Use Status: Former Tobacco user Tobacco use type: Cigarette Cigarette Packs Per Day: 3 Years Smoked: 25 Smoked in Last 30 Days: No Smoke Quit Date: 40 years ago e-Cigarette/Vaping Use: Never Used Second Hand Smoke Exposure: No Substance Use History: Use of substances other than those prescribed or required for medical reasons: No Advance Directives: Advance Directives: Yes Advance Directives on File: Yes Advance Directives Date on File: 03/04/21 Occupation Assessmet: service: No Current occupational status: disabled Home Medications and Allergies Current Medications: Current Medications Acetaminophen (Acetaminophen 325 Mg Tablet) 650 mg PO Q6H PRN PRN Reason: Pain, Mild (Pain Scale 1-3) Last Admin: 11/18/22 17:34 Dose: 650 mg Albuterol Sulfate (Albuterol Sulfate 90 Mcg 8 Gm Inhaler) 2 puff INHALE RQ4H PRN PRN Reason: for dyspnea Cyanocobalamin (Cyanocobalamin (Vitamin B-12) 1,000 Mcg Tablet) 1,000 mcg G-TUBE DAILY [facility] Duloxetine HCl (Duloxetine Hcl 30 Mg Capsule.Dr) 30 mg PO DAILY [facility] Duloxetine HCl (Duloxetine Hcl 60 Mg Capsule.Dr) 60 mg PO DAILY [facility] Fluticasone Propionate (Fluticasone Propionate 100 Mcg Blst.W.Dev) 2 puff INHALE RBID [facility] Last Admin: 11/19/22 07:37 Dose: 2 puff Fluticasone Propionate (Fluticasone Propionate Nasal 16 Gm [place]) 1 spray NOSTRIL-B DAILY [facility] Folic Acid (Folic Acid 1 Mg Tablet) 1 mg PO DAILY [facility] Gabapentin (Gabapentin 400 Mg Capsule) 400 mg G-TUBE TID [facility] Last Admin: 11/18/22 21:26 Dose: 400 mg Levothyroxine Sodium (Levothyroxine Sodium 75 Mcg Tablet) 75 mcg G-TUBE DAILY@0600 [facility] Last Admin: 11/19/22 06:21 Dose: 75 mcg Multivitamins/Vitamin C (Multivitamin Tablet) 1 tab PO DAILY [facility] Non-Formulary Medication (Levocetirizine) 1 tab PO BEDTIME [facility] Non-Formulary Medication (Umeclidinium-Vilanterol [Anoro Ellipta]) 1 inhalation INHALE DAILY [facility] Omeprazole (Omeprazole 40 Mg Capsule.Dr) 40 mg PO DAILY@0630 [facility] Ondansetron HCl (Ondansetron Hcl 4 Mg/2 Ml Vial) 4 mg IVPUSH Q8H PRN PRN Reason: Nausea and Vomiting Last Admin: 11/19/22 01:00 Dose: 4 mg Sodium Chloride (0.9 % Sodium Chloride Flush 3 Ml Syringe) 3 ml IVFLUSH QSHIFT [facility] Last Admin: 11/19/22 01:02 Dose: Not Given Tizanidine HCl (Tizanidine Hcl 4 Mg Tablet) 4 mg PO BEDTIME [facility] Last Admin: 11/18/22 21:26 Dose: 4 mg Home Medications Medication Instructions Recorded Confirmed Type umeclidinium 62.5 mcg-vilanterol 1 inh inhalation DAILY 06/21/20 11/18/22 History 25 mcg/actuation powdr for inhalation (Anoro Ellipta) albuterol sulfate 90 mcg/actuation 2 puff PO Q4H PRN for dyspnea 03/18/22 11/18/22 History aerosol inhaler acetaminophen 160 mg/5 mL oral 10 ml TID PRN pain 11/18/22 11/18/22 History liquid (M-PAP) duloxetine 30 mg capsule,delayed 1 cap PO DAILY 11/18/22 11/18/22 History release duloxetine 60 mg capsule,delayed 1 cap PO DAILY 11/18/22 11/18/22 History release fluticasone propionate 110 2 puff inhalation BID 11/18/22 11/18/22 History mcg/actuation HFA aerosol inhaler (Flovent HFA) fluticasone propionate 50 1 spray intranasal DAILY 11/18/22 11/18/22 History mcg/actuation nasal spray,suspension folic acid 1 mg tablet 1 tab PO DAILY 11/18/22 11/18/22 History levocetirizine 5 mg tablet 1 tab PO BEDTIME 11/18/22 11/18/22 History omeprazole 40 mg capsule,delayed 1 cap PO DAILY 11/18/22 11/18/22 History release tizanidine 4 mg tablet 1 tab PO BEDTIME 11/18/22 11/18/22 History triamcinolone acetonide 0.5 % 1 appl topical BID 11/18/22 11/18/22 History topical cream tramadol 50 mg tablet 1 tab PO TID PRN pain 11/19/22 11/19/22 History Allergies Allergy/AdvReac Type Severity Reaction Status Date / Time Penicillins Allergy Rash Verified 10/21/22 13:50 aspirin [ASA] AdvReac Intermediate GI BLEED, Verified 10/21/22 13:50 Headaches Physical Exam Vital signs: Vital Signs Temp 98.7 F 11/19/22 07:25 Pulse 98 11/19/22 07:39 Resp 16 11/19/22 07:39 BP 118/58 L 11/19/22 07:25 Pulse Ox 96 11/19/22 07:25 O2 Del Method 11/19/22 04:01 Intake & Output 11/18/22 11/19/22 11/19/22 18:59 06:59 18:59 Intake Total 1400 / 1400 Output Total 650 / 650 Balance 1400 / 750 -650 / 750 Urine Output (Average ml/kg/hr) 0.86 Intake: Intake (Blood Product) Amount 350 / 350 Red Blood Cells (E0382) Unit 350 / 350 [id number] Intake, IV Amount 1050 / 1050 cefEPime HCl 2 gm In 0.9 % 50 / 50 Sodium Chloride 50 ml @ 100 mls /hr IV ONCE ONE Rx#:[id number] 0.9 % Sodium Chloride 1,000 ml 1000 / 1000 @ 999 mls/hr IVCONT .Q1H1M [facility] Rx#:[id number] Output: Output, Urine Amount 650 / 650 Other: Urine Urinal Weight 63.049 kg Weight 63.049 kg - Constitutional Present: no acute distress - Routine HEENT Exam Head: Present: normal inspection Eye: Present: EOMI, PERRL - Routine Neck Exam Absent: lymphadenopathy Comments: Induration of the left side of neck, changes secondary to prior radiation therapy. - Routine Respiratory Exam Absent: accessory muscle use - Routine Cardiovascular Exam Cardiovascular: Present: RRR, S1, S2 - Routine Extremities Exam Absent: pedal edema - Routine Skin Exam Present: intact - Routine Neurological Exam Present: alert, oriented X3 Hem/Onc Consult Result - Labs CBC & Chem 7: 11/18/22 20:15 11/19/22 05:24 Labs: Short CBC 11/18/22 11/18/22 Range/Units 12:03 20:15 WBC 6.2 (4.8-10.8) X10*3/uL Hgb 6.9 L* D 8.0 L (14.0-18.0) g/dl Hct 22.0 L D 24.7 L (42.0-52.0) % Plt Count 374 (160-400) X10*3/uL BMP 11/18/22 11/19/22 12:03 05:24 Sodium 142 141 Potassium 3.7 3.8 Chloride 105 107 Carbon Dioxide 27 27 BUN 20 H 17 H Creatinine 0.86 0.70 Calcium 9.0 8.6 Cardiac Enzymes 11/18/22 Range/Units 12:03 Total Creatine Kinase 102 (38-174) U/L Liver Function 11/18/22 11/19/22 Range/Units 12:03 05:24 Total Bilirubin 0.2 0.8 (0.0-1.0) mg/dL Direct Bilirubin < 0.2 (0.0-0.5) mg/dL AST 20 20 (5-37) U/L ALT 10 8 (0-40) U/L Alkaline Phosphatase 61 63 (39-117) U/L Albumin 3.7 3.4 L (3.5-5.0) g/dL Urine 11/18/22 Range/Units 13:44 Urine Color Yellow Urine Appearance Clear Urine pH 7.5 (5.0-9.0) Ur Specific [place] >= 1.030 H (1.005-1.025) Urine Protein Negative (Neg-Trace) mg/dL Urine Glucose (UA) Negative (Negative) mg/dL Assessment and Plan Patient Active problem list reviewed?: Yes (1) Anemia Status: Acute Assessment and plan: 1. This is a 72-year-old male admitted for acute on chronic iron deficiency anemia. He has a remote history of throat cancer for which he received chemo and radiation therapy. Last year he was diagnosed with esophageal stricture secondary to radiation therapy and he has had PEG tube placement. He has had lower GI bleed last year, no acute symptoms of GI bleed at this time but he has heme-positive stool. Blood work, iron studies before blood transfusion shows iron deficiency. His kidney and liver functions are normal, WBC and platelet counts are normal. No evidence of hemolysis, vitamin B12 and folate levels are not low, LDH is normal. I recommend parenteral iron therapy since he is unable to tolerate oral iron. Some of his anemia could be related to anemia of chronic disease. If he continues to have anemia in spite of correction of iron deficiency, further evaluation with a bone marrow biopsy can be performed. I thank you for this consultation. - Time Spent With Patient Time Spent with Patient (in minutes): 20
--- NOTE | 2022-11-19 09:30 | HO.PM.IMPN ---
Subjective Subjective Date of Service: 11/19/22 Review of Systems Follow up anemia, GI bleed feeling better today Physical Exam Vital Signs: Vital Signs: Last Vital Signs Temp 98.7 F 11/19/22 07:25 Pulse 98 11/19/22 07:39 Resp 16 11/19/22 07:39 BP 118/58 L 11/19/22 07:25 Pulse Ox 96 11/19/22 07:25 O2 Del Method 11/19/22 04:01 BMI result Body Mass Index 21.7 Appearing in no acute distress lung sounds are clear to auscultation heart regular rate rhythm, clear S1, S2 positive bowel sounds, abdomen is soft, nontender neuro patient is alert x3, no focal deficits Objective Data Active Medications Acetaminophen (Acetaminophen 325 Mg Tablet) 650 mg PO Q6H PRN PRN Reason: Pain, Mild (Pain Scale 1-3) Last Admin: 11/18/22 17:34 Dose: 650 mg Documented By: DARIO Albuterol Sulfate (Albuterol Sulfate 90 Mcg 8 Gm Inhaler) 2 puff INHALE RQ4H PRN PRN Reason: for dyspnea Cyanocobalamin (Cyanocobalamin (Vitamin B-12) 1,000 Mcg Tablet) 1,000 mcg G-TUBE DAILY [facility] Duloxetine HCl (Duloxetine Hcl 30 Mg Capsule.Dr) 30 mg PO DAILY [facility] Duloxetine HCl (Duloxetine Hcl 60 Mg Capsule.Dr) 60 mg PO DAILY [facility] Fluticasone Propionate (Fluticasone Propionate 100 Mcg Blst.W.Dev) 2 puff INHALE RBID [facility] Last Admin: 11/19/22 07:37 Dose: 2 puff Documented By: LETTY Fluticasone Propionate (Fluticasone Propionate Nasal 16 Gm [place]) 1 spray NOSTRIL-B DAILY [facility] Folic Acid (Folic Acid 1 Mg Tablet) 1 mg PO DAILY [facility] Gabapentin (Gabapentin 400 Mg Capsule) 400 mg G-TUBE TID [facility] Last Admin: 11/18/22 21:26 Dose: 400 mg Documented By: MELISA Levothyroxine Sodium (Levothyroxine Sodium 75 Mcg Tablet) 75 mcg G-TUBE DAILY@0600 [facility] Last Admin: 11/19/22 06:21 Dose: 75 mcg Documented By: MELISA Multivitamins/Vitamin C (Multivitamin Tablet) 1 tab PO DAILY [facility] Non-Formulary Medication (Levocetirizine) 1 tab PO BEDTIME [facility] Non-Formulary Medication (Umeclidinium-Vilanterol [Anoro Ellipta]) 1 inhalation INHALE DAILY [facility] Omeprazole (Omeprazole 40 Mg Capsule.Dr) 40 mg PO DAILY@0630 [facility] Ondansetron HCl (Ondansetron Hcl 4 Mg/2 Ml Vial) 4 mg IVPUSH Q8H PRN PRN Reason: Nausea and Vomiting Last Admin: 11/19/22 01:00 Dose: 4 mg Documented By: MELISA Sodium Chloride (0.9 % Sodium Chloride Flush 3 Ml Syringe) 3 ml IVFLUSH QSHIFT [facility] Last Admin: 11/19/22 01:02 Dose: Not Given Documented By: MELISA Non-Admin Reason: Previously Administered Tizanidine HCl (Tizanidine Hcl 4 Mg Tablet) 4 mg PO BEDTIME [facility] Last Admin: 11/18/22 21:26 Dose: 4 mg Documented By: MELISA Labs 11/18/22 20:15 11/19/22 05:24 Labs: Laboratory Results - last 24 hr 11/18/22 11/18/22 11/18/22 12:03 12:03 12:03 MCV 91.7 MCH 28.8 MCHC 31.4 RDW 16.5 H Plt Count 374 MPV 9.5 Immature Gran % (Auto) 0.6 H Neut % (Auto) 80.2 H Lymph % (Auto) 8.9 L [place] % (Auto) 8.7 Eos % (Auto) 1.0 Baso % (Auto) 0.6 Lymph # (Auto) 0.6 L [place] # (Auto) 0.5 Eos # (Auto) 0.1 Baso # (Auto) 0.0 Abs Immat Gran (auto) 0.04 H Absolute Neuts (auto) 5.0 Absolute Nucleated RBC 0.000 Nucleated RBC % (auto) 0.0 Absolute Retic 0.037 Percent Retic 1.5 Immature Retic Fraction 27.2 H Retic Hgb Equivalent 27.1 L PT INR APTT Anion Gap 14 Estim Creat Clear Calc 69.2 Estimated GFR > 60 Random Glucose 91 Lactic Acid Lactic Acid F/U @ 2Hr Calcium 9.0 Magnesium 2.1 Iron TIBC % Saturation Unsat Iron Binding Ferritin Total Bilirubin 0.2 Direct Bilirubin < 0.2 AST 20 ALT 10 Alkaline Phosphatase 61 Lactate Dehydrogenase Total Creatine Kinase 102 Troponin I High Sens 5.4 B-Natriuretic Peptide Total Protein 6.6 Albumin 3.7 Vitamin B12 Folate TSH Free T4 Urine Color Urine Appearance Urine pH Ur Specific [place] Urine Protein Urine Glucose (UA) Urine Ketones Urine Blood Urine Nitrite Ur Leukocyte Esterase Stool Occult Blood Urine Opiates Screen Urine Fentanyl Screen Ur Barbiturates Screen Ur Phencyclidine Scrn Ur Amphetamines Screen U Benzodiazepines Scrn Urine Cocaine Screen U Marijuana (THC) Screen Ethyl Alcohol COVID-19 (VIC) COVID-19 [employer] [facility] Blood Type Antibody Screen Crossmatch 11/18/22 11/18/22 11/18/22 12:03 12:03 12:03 MCV MCH MCHC RDW Plt Count MPV Immature Gran % (Auto) Neut % (Auto) Lymph % (Auto) [place] % (Auto) Eos % (Auto) Baso % (Auto) Lymph # (Auto) [place] # (Auto) Eos # (Auto) Baso # (Auto) Abs Immat Gran (auto) Absolute Neuts (auto) Absolute Nucleated RBC Nucleated RBC % (auto) Absolute Retic Percent Retic Immature Retic Fraction Retic Hgb Equivalent PT 13.1 INR 1.1 APTT 24.3 L Anion Gap Estim Creat Clear Calc Estimated GFR Random Glucose Lactic Acid Lactic Acid F/U @ 2Hr Calcium Magnesium Iron 27 L TIBC 317 % Saturation 9 L Unsat Iron Binding 290 Ferritin 26 Total Bilirubin Direct Bilirubin AST ALT Alkaline Phosphatase Lactate Dehydrogenase 195 Total Creatine Kinase Troponin I High Sens B-Natriuretic Peptide 47 Total Protein Albumin Vitamin B12 1038 H Folate > 20.0 TSH 5.23 H Free T4 0.82 Urine Color Urine Appearance Urine pH Ur Specific [place] Urine Protein Urine Glucose (UA) Urine Ketones Urine Blood Urine Nitrite Ur Leukocyte Esterase Stool Occult Blood Urine Opiates Screen Urine Fentanyl Screen Ur Barbiturates Screen Ur Phencyclidine Scrn Ur Amphetamines Screen U Benzodiazepines Scrn Urine Cocaine Screen U Marijuana (THC) Screen Ethyl Alcohol < 10 COVID-19 (VIC) COVID-19 [employer] Blood Type Antibody Screen Crossmatch 11/18/22 11/18/22 11/18/22 12:04 13:33 13:44 MCV MCH MCHC RDW Plt Count MPV Immature Gran % (Auto) Neut % (Auto) Lymph % (Auto) [place] % (Auto) Eos % (Auto) Baso % (Auto) Lymph # (Auto) [place] # (Auto) Eos # (Auto) Baso # (Auto) Abs Immat Gran (auto) Absolute Neuts (auto) Absolute Nucleated RBC Nucleated RBC % (auto) Absolute Retic Percent Retic Immature Retic Fraction Retic Hgb Equivalent PT INR APTT Anion Gap Estim Creat Clear Calc Estimated GFR Random Glucose Lactic Acid 2.6 H* Lactic Acid F/U @ 2Hr Calcium Magnesium Iron TIBC % Saturation Unsat Iron Binding Ferritin Total Bilirubin Direct Bilirubin AST ALT Alkaline Phosphatase Lactate Dehydrogenase Total Creatine Kinase Troponin I High Sens B-Natriuretic Peptide Total Protein Albumin Vitamin B12 Folate TSH Free T4 Urine Color Yellow Urine Appearance Clear Urine pH 7.5 Ur Specific [place] >= 1.030 H Urine Protein Negative Urine Glucose (UA) Negative Urine Ketones Negative Urine Blood Negative Urine Nitrite Negative Ur Leukocyte Esterase Negative Stool Occult Blood Urine Opiates Screen Urine Fentanyl Screen Ur Barbiturates Screen Ur Phencyclidine Scrn Ur Amphetamines Screen U Benzodiazepines Scrn Urine Cocaine Screen U Marijuana (THC) Screen Ethyl Alcohol COVID-19 (VIC) COVID-19 Clin Com Blood Type O Positive Antibody Screen NEGATIVE Crossmatch See Detail 11/18/22 11/18/22 11/18/22 13:49 15:39 15:39 MCV MCH MCHC RDW Plt Count MPV Immature Gran % (Auto) Neut % (Auto) Lymph % (Auto) [place] % (Auto) Eos % (Auto) Baso % (Auto) Lymph # (Auto) [place] # (Auto) Eos # (Auto) Baso # (Auto) Abs Immat Gran (auto) Absolute Neuts (auto) Absolute Nucleated RBC Nucleated RBC % (auto) Absolute Retic Percent Retic Immature Retic Fraction Retic Hgb Equivalent PT INR APTT Anion Gap Estim Creat Clear Calc Estimated GFR Random Glucose Lactic Acid Lactic Acid F/U @ 2Hr 0.8 Calcium Magnesium Iron TIBC % Saturation Unsat Iron Binding Ferritin Total Bilirubin Direct Bilirubin AST ALT Alkaline Phosphatase Lactate Dehydrogenase Total Creatine Kinase Troponin I High Sens 12.1 D B-Natriuretic Peptide Total Protein Albumin Vitamin B12 Folate TSH Free T4 Urine Color Urine Appearance Urine pH Ur Specific [place] Urine Protein Urine Glucose (UA) Urine Ketones Urine Blood Urine Nitrite Ur Leukocyte Esterase Stool Occult Blood Urine Opiates Screen Not Detected Urine Fentanyl Screen Not Detected Ur Barbiturates Screen Not Detected Ur Phencyclidine Scrn Not Detected Ur Amphetamines Screen Not Detected U Benzodiazepines Scrn Not Detected Urine Cocaine Screen Not Detected U Marijuana (THC) Screen Not Detected Ethyl Alcohol COVID-19 (VIC) COVID-19 Clin Com Blood Type Antibody Screen Crossmatch 11/18/22 11/18/22 11/19/22 15:39 19:35 05:24 MCV MCH MCHC RDW Plt Count MPV Immature Gran % (Auto) Neut % (Auto) Lymph % (Auto) [place] % (Auto) Eos % (Auto) Baso % (Auto) Lymph # (Auto) [place] # (Auto) Eos # (Auto) Baso # (Auto) Abs Immat Gran (auto) Absolute Neuts (auto) Absolute Nucleated RBC Nucleated RBC % (auto) Absolute Retic Percent Retic Immature Retic Fraction Retic Hgb Equivalent PT INR APTT Anion Gap 11 L Estim Creat Clear Calc 85.0 Estimated GFR > 60 Random Glucose 111 Lactic Acid Lactic Acid F/U @ 2Hr Calcium 8.6 Magnesium Iron TIBC % Saturation Unsat Iron Binding Ferritin Total Bilirubin 0.8 Direct Bilirubin AST 20 ALT 8 Alkaline Phosphatase 63 Lactate Dehydrogenase Total Creatine Kinase Troponin I High Sens B-Natriuretic Peptide Total Protein 6.1 L Albumin 3.4 L Vitamin B12 Folate TSH Free T4 Urine Color Urine Appearance Urine pH Ur Specific [place] Urine Protein Urine Glucose (UA) Urine Ketones Urine Blood Urine Nitrite Ur Leukocyte Esterase Stool Occult Blood POSITIVE Urine Opiates Screen Urine Fentanyl Screen Ur Barbiturates Screen Ur Phencyclidine Scrn Ur Amphetamines Screen U Benzodiazepines Scrn Urine Cocaine Screen U Marijuana (THC) Screen Ethyl Alcohol COVID-19 (VIC) Negative COVID-19 Clin Com See Note Blood Type Antibody Screen Crossmatch 11/19/22 05:24 MCV MCH MCHC RDW Plt Count MPV Immature Gran % (Auto) Neut % (Auto) Lymph % (Auto) [place] % (Auto) Eos % (Auto) Baso % (Auto) Lymph # (Auto) [place] # (Auto) Eos # (Auto) Baso # (Auto) Abs Immat Gran (auto) Absolute Neuts (auto) Absolute Nucleated RBC Nucleated RBC % (auto) Absolute Retic Percent Retic Immature Retic Fraction Retic Hgb Equivalent PT INR APTT Anion Gap Estim Creat Clear Calc Estimated GFR Random Glucose Lactic Acid Lactic Acid F/U @ 2Hr Calcium Magnesium Iron 325 H TIBC 350 % Saturation 93 H Unsat Iron Binding < 25 Ferritin Total Bilirubin Direct Bilirubin AST ALT Alkaline Phosphatase Lactate Dehydrogenase Total Creatine Kinase Troponin I High Sens B-Natriuretic Peptide Total Protein Albumin Vitamin B12 Folate TSH Free T4 Urine Color Urine Appearance Urine pH Ur Specific [place] Urine Protein Urine Glucose (UA) Urine Ketones Urine Blood Urine Nitrite Ur Leukocyte Esterase Stool Occult Blood Urine Opiates Screen Urine Fentanyl Screen Ur Barbiturates Screen Ur Phencyclidine Scrn Ur Amphetamines Screen U Benzodiazepines Scrn Urine Cocaine Screen U Marijuana (THC) Screen Ethyl Alcohol COVID-19 (VIC) COVID-19 Clin Com Blood Type Antibody Screen Crossmatch Assessment and Plan (1) Acute blood loss anemia: Status: Acute Plan 72-year-old Hungarian-speaking male admitted with symptomatic anemia and hypotension Acute on chronic anemia, iron deficiency H&H 6.9/22.0 initially, stable now s/p 1 unit PRBC ordered in the ER Seen evaluated by Hematology, plan for parental iron therapy as he is unable to tolerate oral, follow-up outpatient if anemia is not corrected in spite of replacement Plan for EGD/colonoscopy tomorrow, clear liquid diet, Colyte through G-tube PPI Hypotension. Resolved Secondary to anemia and possibly some component of hypovolemia Avoid any blood pressure lowering medications Follow blood pressure closely Chest pain. Resolved Some anterior changes noted Chest pain has resolved Troponin 12.1 Monitor on telemetry Chronic dysphagia, history of esophageal cancer status post radiation G-tube over night tube feeds nutrition consult Mental health Continue home medications Hypothyroidism Continue levothyroxine DVT prophylaxis with pneumatic compression boots to [address] Valentin Full code Continue hospital stay for treatment of acute anemia requiring blood transfusion Time Spent With Patient Time: Total time managing care of this patient today ____ minutes. Quality Stroke Does the patient have a stroke diagnosis?: No VTE Prior VTE?: No VTE Risk Level:: Medical - moderate - high VTE Device Contraindication: N/A - Device Ordered VTE Drug Contraindication: Treatment Not Indicated
[2022-11-19] MEDS: DULoxetine HCl 60 MG CAPSULE.DR PO (09:40)
[2022-11-19] MEDS: Multivitamin TABLET 1 TAB PO (09:40)
[2022-11-19] MEDS: Omeprazole 40 MG CAPSULE.DR PO (09:40)
[2022-11-19] MEDS: Folic Acid 1 MG TABLET PO (09:40)
[2022-11-19] MEDS: Gabapentin 400 MG CAPSULE G-TUBE ×3 (09:40→20:11)
[2022-11-19] MEDS: Cyanocobalamin (Vitamin B-12) 1,000 MCG TABLET 1000 MCG G-TUBE (09:40)
[2022-11-19] MEDS: DULoxetine HCl 30 MG CAPSULE.DR PO (09:40)
[2022-11-19] MEDS: 0.9 % Sodium Chloride Flush 3 ML SYRINGE IVFLUSH ×2 (09:41→15:11)
[2022-11-19] MEDS: Iron Sucrose Complex 100 MG in 0.9 % Sodium Chloride 50 ML 220 MG IV (13:50)
--- NOTE | 2022-11-19 14:09 | MHC.CLN ---
NUTRITION PATIENT IN ED AWAITING ENDOSCOPY. PEG PLACE 07/15/22 AND TAKES NOCTURNAL TUBE FEEDING AT HOME. CONSULT FOR TUBE FEEDING. VISITED PATIENT IN ED ABOUT TUBE FEEDING PRODUCT/RATE. 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 TAKES AT HOME NUTREN 1.5, 900 ML (1350 KCAL, 54 G PROTEIN, 700 ML FREE WATER) NOCTURNAL FEED AT 120 ML PER HOUR. FLUSH REPORTED TO BE [address] RECOMMENDS: OSMOLITE 1.5, 1000 ML TOTAL FOR NOCTURNAL FEED. 125 ML PER HOUR X 8 HOURS. PROVIDES 1500 KCALS (23.8 ML/KG); 63 G PROTEIN (1 G/KG); 762 ML FREE WATER (12.1 ML/KG). RECOMMEND FLUSH 240 ML Q 8 HOURS.TOTAL FREE WATER FROM FORMULA AND TFKLE=9471 ML (23.5 ML/KG). COMPLETE NUTRITION ASSESSMENT UPON ADMISSION.
[2022-11-19] MEDS: Acetaminophen 325 MG TABLET 650 MG PO (15:14)
[2022-11-19] MEDS: PEG 3350/Na Sulf,Bicarb,Cl/KCL 4,000 ML SOLN.RECON 4000 ML PO (19:55)
[2022-11-19] MEDS: TiZANidine HCL 4 MG TABLET PO (20:11)
--- NOTE | 2022-11-20 | ECG_ITS ---
Test Reason : ST Changes Blood Pressure : / mmHG Vent. Rate : 089 BPM Atrial Rate : 089 BPM P-R Int : 132 ms QRS Dur : 078 ms QT Int : 378 ms P-R-T Axes : 050 -10 059 degrees QTc Int : 459 ms Normal sinus rhythm Normal ECG When compared with ECG of 18-NOV-2022 11:36, ST no longer elevated in Anterior leads Referred By: Maren Mccarthy Electronically Signed By:Ilya Lomax
[2022-11-20] MEDS: 0.9 % Sodium Chloride Flush 3 ML SYRINGE IVFLUSH ×3 (00:05→14:14)
[2022-11-20 04:00] VITALS: BP 159/72; PULSE 75; RESP 16; TEMP 36.7; O2SAT 95
[2022-11-20 07:06] LABS: MANUAL DIFF FLAG NO
[2022-11-20 07:15] LABS: Basophils Absolute Auto 0.1 X10*3/uL (0.0-0.2); Basophils Percent Auto 0.5 % (0-2); Eosinophils Absolute Auto 0.2 X10*3/uL (0.0-0.4); Eosinophils Percent Auto 1.5 % (0-4); Hematocrit 24.2 % (42.0-52.0); Hemoglobin 7.9 g/dl (14.0-18.0); Imm Gran Abs Auto 0.06 X10*3/uL (0.00-0.03); Imm Gran Pct Auto 0.6 % (0.0-0.4); Lymphocytes Absolute Auto 0.6 X10*3/uL (1.2-4.9); Lymphocytes Percent Auto 5.4 % (20-40); Mean Corpuscular HGB Conc 32.6 g/dl (31.0-36.0); Mean Corpuscular Hemoglobin 30.4 pg (27.0-33.0); Mean Corpuscular Volume 93.1 fL (80.0-98.0); Mean Platelet Volume 10.3 fL (9.4-12.4); Monocytes Absolute Auto 0.8 X10*3/uL (0.1-1.2); Monocytes Percent Auto 7.2 % (2-11); Neutrophils Absolute Auto 9.1 x10*3/uL (2.0-8.3); Neutrophils Percent Auto 84.8 % (45-73); Platelet Count 351 X10*3/uL (160-400); Red Cell Distribution Width 16.3 % (11.0-16.0); White Blood Count 10.7 X10*3/uL (4.8-10.8)
[2022-11-20 07:30] LABS: Anion Gap 14 (12-20); Blood Urea Nitrogen 12 mg/dL (9-16); Calcium 8.4 mg/dL (8.4-10.2); Carbon Dioxide 26 mmol/L (22-29); Chloride 106 mmol/L (96-108); Creatinine Clr Calc Pharmacy 102.6; Estimated Glomerular Filt Rate > 60; Glucose Random 73 mg/dL (60-115); Potassium 3.6 mmol/L (3.3-5.1); Sodium 142 mmol/L (135-145)
[2022-11-20] MEDS: Fluticasone Propionate 100 MCG BLST.W.DEV 2 PUFF INHALE ×2 (07:48→20:05)
[2022-11-20 07:49] VITALS: PULSE 106; RESP 16; O2SAT 98
[2022-11-20 07:58] VITALS: BP 126/73; PULSE 107; RESP 20; TEMP 36.2; O2SAT 96
[2022-11-20] MEDS: Folic Acid 1 MG TABLET PO (10:43)
[2022-11-20] MEDS: Gabapentin 400 MG CAPSULE G-TUBE ×3 (10:43→20:12)
[2022-11-20] MEDS: Cyanocobalamin (Vitamin B-12) 1,000 MCG TABLET 1000 MCG G-TUBE (10:44)
[2022-11-20] MEDS: Multivitamin TABLET 1 TAB PO (10:44)
[2022-11-20 12:00] VITALS: BP 147/81; PULSE 95; RESP 20; TEMP 37.1; O2SAT 95
--- NOTE | 2022-11-20 13:32 | MHC.CLN ---
NUTRITION PATIENT WITH NOCTURNAL TUBE FEEDING. RD RECOMMENDS: OSMOLITE 1.5, 120 ML PER HOUR X 8 HOURS (960 ML TOTAL) FOR NOCTURNAL FEED. FLUSH 240 ML FREE WATER Q 6 HOURS. PROVIDES 1440 KCALS (23 KCALS/KG); 60 G PROTEIN (.95 G/KG); 732 ML FREE WATER FROM FORMULA PLUS FLUSH 960 FX=7404 ML (26.9 ML/KG) TOTAL FREE WATER. SEE NUTRITION ASSESSMENT 11/20/22.
[2022-11-20 13:40] VITALS: BMI 21.7
--- NOTE | 2022-11-20 14:01 | P.PNIM_ITS ---
Subjective Subjective Date of Service: 11/20/22 Interval History: seen and examined this morning follow up for anemia no overnight events did not sleep well overnight since he was taking prep for EGD/colonoscopy initially planned for today denies abdominal pain, rectal bleeding Review of Systems Review of Systems: Yes all other systems are reviewed and are negative Constitutional Constitutional: Denies chills and Denies fever(s) ENT Ears, Nose, Mouth, and Throat: Denies dizziness Cardiovascular Cardiovascular: Denies chest pain Gastrointestinal Gastrointestinal: Denies abdominal pain Neurologic Neurologic: Denies dizziness Physical Exam Vital Signs: Vital Signs: Last Vital Signs Temp 98.8 F 11/20/22 12:00 Pulse 95 11/20/22 12:00 Resp 20 11/20/22 12:00 BP 147/81 H 11/20/22 12:00 Pulse Ox 95 11/20/22 12:00 O2 Del Method 11/20/22 12:00 BMI result Body Mass Index 21.7 Const: General: cooperative, comfortable, alert and awake Nutritional Appearance: thin Orientation/consciousness: patient oriented x3 Resp: Effort & Inspection: normal respiratory effort and able to speak in complete sentences Cardio: Rate: regular rate GI: Inspection: No distended Palpation (GI): Soft to palpation and nontender Neuro: General: patient oriented x3 and CN's II-XI intact bilaterally Extrem: General: Yes no pedal edema Objective Data Active Medications Acetaminophen (Acetaminophen 325 Mg Tablet) 650 mg PO Q6H PRN PRN Reason: Pain, Mild (Pain Scale 1-3) Last Admin: 11/19/22 15:14 Dose: 650 mg Documented By: CAS Albuterol Sulfate (Albuterol Sulfate 90 Mcg 8 Gm Inhaler) 2 puff INHALE RQ4H PRN PRN Reason: for dyspnea Cyanocobalamin (Cyanocobalamin (Vitamin B-12) 1,000 Mcg Tablet) 1,000 mcg G- TUBE DAILY [facility] Last Admin: 11/20/22 10:44 Dose: 1,000 mcg Documented By: KIMBERLYN Duloxetine HCl (Duloxetine Hcl 30 Mg Capsule.) 30 mg PO DAILY [facility] Last Admin: 11/20/22 10:41 Dose: Not Given Documented By: KIMBERLYN Non-Admin Reason: pt requires crushed - pharmacist consulted Duloxetine HCl (Duloxetine Hcl 60 Mg Capsule.) 60 mg PO DAILY [facility] Last Admin: 11/20/22 10:40 Dose: Not Given Documented By: KIMBERLYN Non-Admin Reason: pt requires crushed - pharmacist consulted Fluticasone Propionate (Fluticasone Propionate 100 Mcg Blst.W.Dev) 2 puff INHALE RBID [facility] Last Admin: 11/20/22 07:48 Dose: 2 puff Documented By: BRAD Fluticasone Propionate (Fluticasone Propionate Nasal 16 Gm [place]) 1 spray NOSTRIL-B DAILY [facility] Last Admin: 11/20/22 10:52 Dose: Not Given Documented By: KIMBERLYN Non-Admin Reason: Patient Refused Folic Acid (Folic Acid 1 Mg Tablet) 1 mg PO DAILY [facility] Last Admin: 11/20/22 10:43 Dose: 1 mg Documented By: KIMBERLYN Gabapentin (Gabapentin 400 Mg Capsule) 400 mg G-TUBE TID [facility] Last Admin: 11/20/22 10:43 Dose: 400 mg Documented By: KIMBERLYN Levothyroxine Sodium (Levothyroxine Sodium 75 Mcg Tablet) 75 mcg G-TUBE DAILY@0600 [facility] Last Admin: 11/20/22 06:01 Dose: Not Given Documented By: ALECIA Non-Admin Reason: NPO Loratadine (Loratadine 10 Mg Tablet) 5 mg PO BEDTIME [facility] Multivitamins/Vitamin C (Multivitamin Tablet) 1 tab PO DAILY [facility] Last Admin: 11/20/22 10:44 Dose: 1 tab Documented By: KIMBERLYN Non-Formulary Medication (Umeclidinium-Vilanterol [Anoro Ellipta]) 1 inhalation INHALE DAILY [facility] Omeprazole (Omeprazole 40 Mg Capsule.) 40 mg PO DAILY@0630 [facility] Last Admin: 11/20/22 06:01 Dose: Not Given Documented By: ALECIA Non-Admin Reason: NPO Ondansetron HCl (Ondansetron Hcl 4 Mg/2 Ml Vial) 4 mg IVPUSH Q8H PRN PRN Reason: Nausea and Vomiting Last Admin: 11/19/22 20:56 Dose: 4 mg Documented By: LIZANDRO Sodium Chloride (0.9 % Sodium Chloride Flush 3 Ml Syringe) 3 ml IVFLUSH QSHIFT [facility] Last Admin: 11/20/22 10:44 Dose: 3 ml Documented By: KIMBERLYN Tizanidine HCl (Tizanidine Hcl 4 Mg Tablet) 4 mg PO BEDTIME [facility] Last Admin: 11/19/22 20:11 Dose: 4 mg Documented By: LIZANDRO Labs 11/20/22 06:04 11/20/22 06:04 Labs: Laboratory Results - last 24 hr 11/20/22 11/20/22 06:04 06:04 MCV 93.1 MCH 30.4 MCHC 32.6 RDW 16.3 H Plt Count 351 MPV 10.3 Immature Gran % (Auto) 0.6 H Neut % (Auto) 84.8 H Lymph % (Auto) 5.4 L [place] % (Auto) 7.2 Eos % (Auto) 1.5 Baso % (Auto) 0.5 Lymph # (Auto) 0.6 L [place] # (Auto) 0.8 Eos # (Auto) 0.2 Baso # (Auto) 0.1 Abs Immat Gran (auto) 0.06 H Absolute Neuts (auto) 9.1 H Absolute Nucleated RBC 0.000 Nucleated RBC % (auto) 0.0 Anion Gap 14 Estim Creat Clear Calc 102.6 Estimated GFR > 60 Random Glucose 73 Calcium 8.4 Microbiology Microbiology Results: Microbiology 11/18/22 12:04 Blood Culture - Preliminary Blood - Venous No growth after 24 hours. 11/18/22 12:05 Blood Culture - Preliminary Blood - Venous No growth after 24 hours. Assessment and Plan (1) Anemia: Status: Acute Plan 72-year-old Lebanese-speaking male admitted with symptomatic anemia and hypotension Acute on chronic anemia, related to iron deficiency and probable component of chronic dz s/p 1 unit PRBC ordered in the ER Seen evaluated by Hematology, plan for parental iron therapy as he is unable to tolerate oral, follow-up outpatient if anemia is not corrected in spite of replacement seen by GI - Plan for EGD/colonoscopy, postponed due to EKG changes - Anesthesia requesting preoperative evaluation by cardiology continue PPI Hypotension. Resolved Secondary to anemia and possibly some component of hypovolemia Avoid any blood pressure lowering medications Follow blood pressure closely Chest pain. Resolved Some anterior changes noted Chest pain has resolved Troponin 12.1 Monitor on telemetry cardiology eval, repeat EKG pending Chronic dysphagia, history of esophageal cancer status post radiation G-tube over night tube feeds nutrition consult Mental health Continue home medications Hypothyroidism Continue levothyroxine DVT prophylaxis with pneumatic compression boots to [address] Carson Full code Continue hospital stay for treatment of acute anemia requiring blood transfusion Time Spent With Patient Time: Total time managing care of this patient today ____ minutes. Quality Stroke Does the patient have a stroke diagnosis?: No VTE Prior VTE?: No VTE Risk Level:: Medical - moderate - high VTE Device Contraindication: N/A - Device Ordered VTE Drug Contraindication: Treatment Not Indicated
[2022-11-20] MEDS: Iron Sucrose Complex 200 MG in 0.9 % Sodium Chloride 100 ML 440 MG IV (14:10)
[2022-11-20] MEDS: ondansetron HCL 4 MG/2 ML VIAL IVPUSH (14:14)
[2022-11-20 15:11] VITALS: BP 158/60; PULSE 90; RESP 20; TEMP 37; O2SAT 98
--- NOTE | 2022-11-20 16:48 | PM.CNCAR ---
History of Present Illness History of Present Illness Date of Service: 11/20/22 Requesting physician: Maren Mccarthy Chief complaint: Anemia, chest pain Narrative: 72-year-old gentleman who is presenting with anemia and chest pain. He apparently complained of chest discomfort and weakness and was noticed to be significantly anemic. He has been transfused at this stage and is being worked up with endoscopy. At the time interview denied chest discomfort and actually denied any symptoms before coming here other than the fact that he was getting dizzy and feeling very tired. On admission he had an EKG performed which had subtle ST elevations epicardial leads but they did not meet criteria for any acute event. His biomarkers including troponins were completely normal. Repeat EKG is normal. Discussing with him he is denying any symptoms currently. It is possible and due to anemia he had some chest discomfort. Overall he is not complaining of any acute issues right now. [facility] Past Medical History Medical History (Updated 11/19/22 @ 09:13 by Diamond Foster MD) Aortic aneurysm Arthritis Back pain Cancer COPD (chronic obstructive pulmonary disease) COVID-19 Depression Difficulty swallowing Elevated cholesterol Esophageal stricture GERD (gastroesophageal reflux disease) History of chemotherapy History of epistaxis HTN (hypertension) Hx of radiation therapy Lumbar radiculitis Normocytic anemia Osteoarthritis of left shoulder Pain around PEG tube site Post laminectomy syndrome Pulmonary nodule Thyroid disease Family History Family History Father Brain cancer Mother CVD (cardiovascular disease) Maternal Aunt Diabetes Surgical History Surgical History (Updated 11/19/22 @ 09:13 by Diamond Foster MD) H/O colonoscopy History of back surgery History of esophagogastroduodenoscopy (EGD) History of nasal surgery History of transurethral resection of prostate Social History Social History Household Members: Spouse Household Members Other:: 3 Housing: Apartment Do you presently have visiting nurse or other home services: Yes Alcohol intake: never Patient Tobacco Use Status: Former Tobacco user Quit Date: 40 years ago Tobacco use type: Cigarette Cigarette Packs Per Day: 3 Years Smoked: 25 e-Cigarette/Vaping Use: Never Used Second Hand Smoke Exposure: No Advance Directives Date on File: 03/04/21 service: No Current occupational status: disabled Meds Allergies Allergy/AdvReac Type Severity Reaction Status Date / Time Penicillins Allergy Rash Verified 10/21/22 13:50 aspirin [ASA] AdvReac Intermediate GI BLEED, Verified 10/21/22 13:50 Headaches Active Medications: Current Medications Acetaminophen (Acetaminophen 325 Mg Tablet) 650 mg PO Q6H PRN PRN Reason: Pain, Mild (Pain Scale 1-3) Last Admin: 11/19/22 15:14 Dose: 650 mg Albuterol Sulfate (Albuterol Sulfate 90 Mcg 8 Gm Inhaler) 2 puff INHALE RQ4H PRN PRN Reason: for dyspnea Cyanocobalamin (Cyanocobalamin (Vitamin B-12) 1,000 Mcg Tablet) 1,000 mcg G-TUBE DAILY [facility] Last Admin: 11/20/22 10:44 Dose: 1,000 mcg Duloxetine HCl (Duloxetine Hcl 30 Mg Capsule.) 30 mg PO DAILY [facility] Last Admin: 11/20/22 10:41 Dose: Not Given Duloxetine HCl (Duloxetine Hcl 60 Mg Capsule.) 60 mg PO DAILY [facility] Last Admin: 11/20/22 10:40 Dose: Not Given Fluticasone Propionate (Fluticasone Propionate 100 Mcg Blst.W.Dev) 2 puff INHALE RBID [facility] Last Admin: 11/20/22 07:48 Dose: 2 puff Fluticasone Propionate (Fluticasone Propionate Nasal 16 Gm [place]) 1 spray NOSTRIL-B DAILY [facility] Last Admin: 11/20/22 10:52 Dose: Not Given Folic Acid (Folic Acid 1 Mg Tablet) 1 mg PO DAILY [facility] Last Admin: 11/20/22 10:43 Dose: 1 mg Gabapentin (Gabapentin 400 Mg Capsule) 400 mg G-TUBE TID [facility] Last Admin: 11/20/22 14:14 Dose: 400 mg Levothyroxine Sodium (Levothyroxine Sodium 75 Mcg Tablet) 75 mcg G-TUBE DAILY@0600 [facility] Last Admin: 11/20/22 06:01 Dose: Not Given Loratadine (Loratadine 10 Mg Tablet) 5 mg PO BEDTIME [facility] Multivitamins/Vitamin C (Multivitamin Tablet) 1 tab PO DAILY [facility] Last Admin: 11/20/22 10:44 Dose: 1 tab Non-Formulary Medication (Umeclidinium-Vilanterol [Anoro Ellipta]) 1 inhalation INHALE DAILY [facility] Omeprazole (Omeprazole 40 Mg Capsule.) 40 mg PO DAILY@0630 [facility] Last Admin: 11/20/22 06:01 Dose: Not Given Ondansetron HCl (Ondansetron Hcl 4 Mg/2 Ml Vial) 4 mg IVPUSH Q8H PRN PRN Reason: Nausea and Vomiting Last Admin: 11/20/22 14:14 Dose: 4 mg Sodium Chloride (0.9 % Sodium Chloride Flush 3 Ml Syringe) 3 ml IVFLUSH QSHIFT [facility] Last Admin: 11/20/22 14:14 Dose: 3 ml Tizanidine HCl (Tizanidine Hcl 4 Mg Tablet) 4 mg PO BEDTIME [facility] Last Admin: 11/19/22 20:11 Dose: 4 mg Home Medications Medication Instructions Recorded Confirmed Last Taken Type umeclidinium 62.5 mcg-vilanterol 1 inh inhalation DAILY 06/21/20 11/18/22 03/17/22 History 25 mcg/actuation powdr for inhalation (Anoro Ellipta) albuterol sulfate 90 mcg/actuation 2 puff PO Q4H PRN for dyspnea 03/18/22 11/18/22 Unknown History aerosol inhaler acetaminophen 160 mg/5 mL oral 10 ml TID PRN pain 11/18/22 11/18/22 Unknown History liquid (M-PAP) duloxetine 30 mg capsule,delayed 1 cap PO DAILY 11/18/22 11/18/22 Unknown History release duloxetine 60 mg capsule,delayed 1 cap PO DAILY 11/18/22 11/18/22 Unknown History release fluticasone propionate 110 2 puff inhalation BID 11/18/22 11/18/22 Unknown History mcg/actuation HFA aerosol inhaler (Flovent HFA) fluticasone propionate 50 1 spray intranasal DAILY 11/18/22 11/18/22 Unknown History mcg/actuation nasal spray,suspension folic acid 1 mg tablet 1 tab PO DAILY 11/18/22 11/18/22 Unknown History levocetirizine 5 mg tablet 1 tab PO BEDTIME 11/18/22 11/18/22 Unknown History omeprazole 40 mg capsule,delayed 1 cap PO DAILY 11/18/22 11/18/22 Unknown History release tizanidine 4 mg tablet 1 tab PO BEDTIME 11/18/22 11/18/22 Unknown History triamcinolone acetonide 0.5 % 1 appl topical BID 11/18/22 11/18/22 Unknown History topical cream tramadol 50 mg tablet 1 tab PO TID PRN pain 11/19/22 11/19/22 Unknown History Physical Exam Vital Signs: Vital Signs: Last Vital Signs Temp 98.6 F 11/20/22 15:11 Pulse 90 11/20/22 15:11 Resp 20 11/20/22 15:11 BP 158/60 H 11/20/22 15:11 Pulse Ox 98 11/20/22 15:11 O2 Del Method 11/20/22 15:11 BMI result Body Mass Index 21.7 GENERAL APPEARANCE: in no acute distress, pleasant. NECK: no carotid bruit, no jugular venous distention. SKIN: no suspicious lesions, warm and dry. HEART: no murmurs, regular rate and rhythm. LUNGS: clear to auscultation bilaterally. ABDOMEN: soft, nontender. EXTREMITIES: no edema. PERIPHERAL PULSES: equal. NEUROLOGIC: No gross deficits, AAO X 3 Objective Labs and Meds 11/20/22 06:04 11/20/22 06:04 Lab results: Laboratory Results - last 24 hr 11/20/22 11/20/22 06:04 06:04 WBC 10.7 RBC 2.60 L Hgb 7.9 L Hct 24.2 L MCV 93.1 MCH 30.4 MCHC 32.6 RDW 16.3 H Plt Count 351 MPV 10.3 Immature Gran % (Auto) 0.6 H Neut % (Auto) 84.8 H Lymph % (Auto) 5.4 L Crisp % (Auto) 7.2 Eos % (Auto) 1.5 Baso % (Auto) 0.5 Lymph # (Auto) 0.6 L Crisp # (Auto) 0.8 Eos # (Auto) 0.2 Baso # (Auto) 0.1 Abs Immat Gran (auto) 0.06 H Absolute Neuts (auto) 9.1 H Absolute Nucleated RBC 0.000 Nucleated RBC % (auto) 0.0 Sodium 142 Potassium 3.6 Chloride 106 Carbon Dioxide 26 Anion Gap 14 BUN 12 Creatinine 0.58 Estim Creat Clear Calc 102.6 Estimated GFR > 60 Random Glucose 73 Calcium 8.4 Assessment and Plan (1) Acute blood loss anemia: Status: Acute (2) Chest pain: Status: Acute Plan 72-year-old gentleman presenting with GI blood loss and anemia. He complained of chest discomfort at some stage but is denying any symptoms to me currently. He had a normal Cardiolite stress test in 2020. His EKG has subtle and admissions but the did not have a pattern of ST-elevation SD. Biomarkers also not consistent with any acute event. I think he had some symptoms due to anemia. His EKG is currently completely normal. Only intervention done is that he has received blood. It is possible that the changes seen were due to anemia but I think right now there were fairly nonspecific appearing. I think he can proceed with endoscopy with intermediate risk for perioperative cardiovascular complications. We will follow along with you. Thank you for allowing me to participate in the care of your patient. Please feel free to contact me if you have any questions. Time Spent With Patient Time: Total time managing care of this patient today ____ minutes. Procedures Date of Service Date of Service: 11/20/22
[2022-11-20 20:00] VITALS: BP 146/66; PULSE 76; RESP 20; TEMP 36.9; O2SAT 96
[2022-11-20] MEDS: TiZANidine HCL 4 MG TABLET PO (20:12)
[2022-11-20] MEDS: Loratadine 10 MG TABLET 5 MG PO (20:13)
[2022-11-20] MEDS: traMADoL HCL 50 MG TABLET PO (20:56)
[2022-11-21] VITALS (10 sets, daily range): BP systolic 112–170; BP diastolic 54–81; PULSE 62–88; RESP 16–20; TEMP 36.3–37.4; O2SAT 93–97
[2022-11-21 07:15] LABS: Hematocrit 25.1 % (42.0-52.0); Hemoglobin 8.1 g/dl (14.0-18.0); Mean Corpuscular HGB Conc 32.3 g/dl (31.0-36.0); Mean Corpuscular Hemoglobin 29.2 pg (27.0-33.0); Mean Corpuscular Volume 90.6 fL (80.0-98.0); Platelet Count 365 X10*3/uL (160-400); Red Blood Count 2.77 X10*6/uL (4.60-5.80); Red Cell Distribution Width 16.1 % (11.0-16.0); White Blood Count 5.3 X10*3/uL (4.8-10.8)
[2022-11-21] MEDS: Folic Acid 1 MG TABLET PO (07:38)
[2022-11-21] MEDS: Gabapentin 400 MG CAPSULE G-TUBE ×3 (07:38→20:05)
[2022-11-21] MEDS: Multivitamin TABLET 1 TAB PO (07:38)
[2022-11-21] MEDS: Cyanocobalamin (Vitamin B-12) 1,000 MCG TABLET 1000 MCG G-TUBE (07:38)
[2022-11-21] MEDS: 0.9 % Sodium Chloride Flush 3 ML SYRINGE IVFLUSH ×2 (07:39→15:40)
[2022-11-21] MEDS: traMADoL HCL 50 MG TABLET PO (07:41)
[2022-11-21] MEDS: Fluticasone Propionate 100 MCG BLST.W.DEV 2 PUFF INHALE ×2 (08:29→18:57)
[2022-11-21] MEDS: Iron Sucrose Complex 200 MG in 0.9 % Sodium Chloride 100 ML 440 MG IV (10:41)
[2022-11-21] MEDS: Fluticasone Propionate Nasal 16 GM SPRAY 1 SPRAY NOSTRIL-B (10:41)
[2022-11-21] MEDS: ondansetron HCL 4 MG/2 ML VIAL IVPUSH (10:41)
--- NOTE | 2022-11-21 11:19 | HO.PM.IMPN ---
Subjective Subjective Date of Service: 11/21/22 Interval History: seen and examined this morning follow up for anemia no overnight events no chest pain Review of Systems Review of Systems: Yes all other systems are reviewed and are negative Constitutional Constitutional: Denies chills and Denies fever(s) ENT Ears, Nose, Mouth, and Throat: Denies dizziness Cardiovascular Cardiovascular: Denies chest pain, Denies palpitations and Denies dyspnea Respiratory Respiratory: Denies cough and Denies dyspnea Gastrointestinal Gastrointestinal: Denies abdominal pain Neurologic Neurologic: Denies dizziness Endocrine Endocrine: Denies palpitations Physical Exam Vital Signs: Vital Signs: Last Vital Signs Temp 98.8 F 11/21/22 08:00 Pulse 72 11/21/22 08:32 Resp 16 11/21/22 08:32 BP 140/75 H 11/21/22 08:00 Pulse Ox 96 11/21/22 08:00 O2 Del Method 11/21/22 08:00 BMI result Body Mass Index 21.7 Const: General: cooperative, comfortable, alert and awake Nutritional Appearance: thin Orientation/consciousness: patient oriented x3 Resp: Effort & Inspection: normal respiratory effort and able to speak in complete sentences Cardio: Rate: regular rate GI: Other: gtube in place Inspection: No distended Palpation (GI): Soft to palpation and nontender Neuro: General: patient oriented x3 and CN's II-XI intact bilaterally Extrem: General: Yes no pedal edema Objective Data Active Medications Acetaminophen (Acetaminophen 325 Mg Tablet) 650 mg PO Q6H PRN PRN Reason: Pain, Mild (Pain Scale 1-3) Last Admin: 11/19/22 15:14 Dose: 650 mg Documented By: CAS Albuterol Sulfate (Albuterol Sulfate 90 Mcg 8 Gm Inhaler) 2 puff INHALE RQ4H PRN PRN Reason: for dyspnea Cyanocobalamin (Cyanocobalamin (Vitamin B-12) 1,000 Mcg Tablet) 1,000 mcg G-TUBE DAILY [facility] Last Admin: 11/21/22 07:38 Dose: 1,000 mcg Documented By: HANK Duloxetine HCl (Duloxetine Hcl 30 Mg Capsule.) 30 mg PO DAILY [facility] Last Admin: 11/21/22 07:35 Dose: Not Given Documented By: HANK Non-Admin Reason: CANNOT CRUSH Duloxetine HCl (Duloxetine Hcl 60 Mg Capsule.) 60 mg PO DAILY [facility] Last Admin: 11/21/22 07:35 Dose: Not Given Documented By: HANK Non-Admin Reason: CANNOT CRUSH Fluticasone Propionate (Fluticasone Propionate 100 Mcg Blst.W.Dev) 2 puff INHALE RBID [facility] Last Admin: 11/21/22 08:29 Dose: 2 puff Documented By: CLARISSA Fluticasone Propionate (Fluticasone Propionate Nasal 16 Gm [place]) 1 spray NOSTRIL-B DAILY [facility] Last Admin: 11/21/22 10:41 Dose: 1 spray Documented By: HANK Folic Acid (Folic Acid 1 Mg Tablet) 1 mg PO DAILY [facility] Last Admin: 11/21/22 07:38 Dose: 1 mg Documented By: HANK Gabapentin (Gabapentin 400 Mg Capsule) 400 mg G-TUBE TID [facility] Last Admin: 11/21/22 07:38 Dose: 400 mg Documented By: HANK Levothyroxine Sodium (Levothyroxine Sodium 75 Mcg Tablet) 75 mcg G-TUBE DAILY@0600 [facility] Last Admin: 11/21/22 05:02 Dose: Not Given Documented By: MCKINLEY Non-Admin Reason: NPO Loratadine (Loratadine 10 Mg Tablet) 5 mg PO BEDTIME [facility] Last Admin: 11/20/22 20:13 Dose: 5 mg Documented By: MCKINLEY Multivitamins/Vitamin C (Multivitamin Tablet) 1 tab PO DAILY [facility] Last Admin: 11/21/22 07:38 Dose: 1 tab Documented By: HANK Non-Formulary Medication (Umeclidinium-Vilanterol [Anoro Ellipta]) 1 inhalation INHALE DAILY [facility] Omeprazole (Omeprazole 40 Mg Capsule.) 40 mg PO DAILY@0630 [facility] Last Admin: 11/21/22 05:02 Dose: Not Given Documented By: MCKINLEY Non-Admin Reason: NPO Ondansetron HCl (Ondansetron Hcl 4 Mg/2 Ml Vial) 4 mg IVPUSH Q8H PRN PRN Reason: Nausea and Vomiting Last Admin: 11/21/22 10:41 Dose: 4 mg Documented By: HANK Sodium Chloride (0.9 % Sodium Chloride Flush 3 Ml Syringe) 3 ml IVFLUSH QSHIFT [facility] Last Admin: 11/21/22 07:39 Dose: 3 ml Documented By: HANK Tizanidine HCl (Tizanidine Hcl 4 Mg Tablet) 4 mg PO BEDTIME [facility] Last Admin: 11/20/22 20:12 Dose: 4 mg Documented By: PATRICK-JOZEB Tramadol HCl (Tramadol Hcl 50 Mg Tablet) 50 mg PO Q6H PRN PRN Reason: Pain, Moderate (Pain Scale 4-6 Last Admin: 11/21/22 07:41 Dose: 50 mg Documented By: HANK Labs 11/21/22 06:13 11/20/22 06:04 Labs: Laboratory Results - last 24 hr 11/21/22 06:13 MCV 90.6 MCH 29.2 MCHC 32.3 RDW 16.1 H Plt Count 365 MPV 10.0 Absolute Nucleated RBC 0.000 Nucleated RBC % (auto) 0.0 Microbiology Microbiology Results: Microbiology 11/18/22 12:04 Blood Culture - Preliminary Blood - Venous No growth after 48 hours. 11/18/22 12:05 Blood Culture - Preliminary Blood - Venous No growth after 48 hours. Assessment and Plan (1) Acute blood loss anemia: Status: Acute Plan 72-year-old Bengali-speaking male admitted with symptomatic anemia and hypotension Acute on chronic anemia, related to iron deficiency and probable component of chronic dz s/p 1 unit PRBC ordered in the ER Seen evaluated by Hematology, plan for parental iron therapy as he is unable to tolerate oral, recommend venofer 200 x 5 doses (day 3/5), follow-up outpatient if anemia is not corrected in spite of replacement seen by GI - Plan for EGD/colonoscopy, postponed due to EKG changes - Anesthesia requesting preoperative evaluation by cardiology- rescheduled for Thursday continue PPI H/H stable overnight Hypotension. Resolved Secondary to anemia and possibly some component of hypovolemia Chest pain. Resolved Some anterior changes noted Troponin 12.1 Monitor on telemetry cardiology eval, repeat EKG pending. no further work up required at this time, can proceed with planned EGD/colonoscopy Chronic dysphagia, history of esophageal cancer status post radiation G-tube - over night tube feeds CTA on admission with patchy opacities - ?aspiration. no white count, fever or respirtory symptoms Eats ice cream, jello etc at home but per speech not safe for any po intake at this time given severity of previous MBSS. Keep NPO - has repeat MBSS scheduled as outpatient next week unable to crush cymbalta through [facility] - pharmacy working on alternative Mental health Continue home medications Hypothyroidism Continue levothyroxine DVT prophylaxis with pneumatic compression boots to [address] Lofton Full code Continue hospital stay for treatment of acute anemia requiring blood transfusion and egd/colonoscopy Time Spent With Patient Time: Total time managing care of this patient today ____ minutes. Quality Stroke Does the patient have a stroke diagnosis?: No VTE Prior VTE?: No VTE Risk Level:: Medical - moderate - high VTE Device Contraindication: N/A - Device Ordered VTE Drug Contraindication: Treatment Not Indicated
--- NOTE | 2022-11-21 11:32 | MHC.CLN ---
F/U NOCTURNAL TUBE FEEDING: OSMOLITE 1.5, 120 ML PER HOUR X 8 HOURS (960 ML TOTAL) FOR NOCTURNAL FEED. FLUSH 240 ML FREE WATER Q 6 HOURS. PROVIDES 1440 KCALS (23 KCALS/KG); 60 G PROTEIN (.95 G/KG); 732 ML FREE WATER FROM FORMULA PLUS FLUSH 960 LY=3586 ML (26.9 ML/KG) TOTAL FREE WATER. TUBE FEEDING COMPARABLE TO FORMULA AND SCHEDULE RECEIVING AT HOME. ENDOSCOPY/COLONOSCOPY SCHEDULED FOR 11/24. FOLLOW FOR TUBE FEED TOLERANCE AND TEST RESULTS.
--- NOTE | 2022-11-21 12:06 | MHC.SLORD ---
Speech Language Pathology Order Status: [employer] received order for bedside swallow evaluation, discussed with attending hospitalist, Maren FRANCO. Pt had MBSS done here 4 months ago, revealing profound impairments: no laryngeal elevation, no epiglottic inversion, no laryngeal vestibular closure, resulting in wide open airway, wide column of contrast in the laryngeal vestibule. Pt was recommended NPO status d/t compromised airway protection, evidence of aspiration. D/t the severity of his dysphagia, best way to evaluate would be with an instrumental exam. Upon discussion with [facility], pt will continue tube feeds during hospitalization, he has a PEG tube. He is scheduled for an outpatient MBSS next Thursday.
[2022-11-21] MEDS: DULoxetine HCl 30 MG CAPSULE.DR PO (12:23)
[2022-11-21] MEDS: DULoxetine HCl 60 MG CAPSULE.DR PO (12:23)
--- NOTE | 2022-11-21 15:44 | MHC.CM.PN ---
EMR REVIEWED, PER HOSPITALIST PT WILL REMAIN IN PT OVER W/E DUE TO TO EKG CHANGES EGD/COLONOSCOPY POSTPONED PENDING CARDIOLOGY CONSULT, CM WILL CONT TO FOLLOW.
--- NOTE | 2022-11-21 19:44 | PM.PNCARD ---
Subjective Subjective Date of Service: 11/21/22 Interval history: Seen and examined at bedside. denying any symptoms. Waiting to undergo endoscopy next week. Physical Exam Vital Signs: Last Vital Signs Temp 97.4 F 11/21/22 19:15 Pulse 76 11/21/22 19:15 Resp 18 11/21/22 19:15 BP 170/81 H 11/21/22 19:15 Pulse Ox 93 11/21/22 19:15 O2 Del Method 11/21/22 19:15 BMI result Body Mass Index 21.7 GENERAL APPEARANCE: in no acute distress, pleasant. NECK: no carotid bruit, no jugular venous distention. SKIN: no suspicious lesions, warm and dry. HEART: no murmurs, regular rate and rhythm. LUNGS: clear to auscultation bilaterally. ABDOMEN: soft, nontender. EXTREMITIES: no edema. PERIPHERAL PULSES: equal. NEUROLOGIC: No gross deficits, AAO X 3 Objective Labs and Meds 11/21/22 06:13 11/20/22 06:04 Lab results: Laboratory Results - last 24 hr 11/21/22 06:13 WBC 5.3 RBC 2.77 L Hgb 8.1 L Hct 25.1 L MCV 90.6 MCH 29.2 MCHC 32.3 RDW 16.1 H Plt Count 365 MPV 10.0 Absolute Nucleated RBC 0.000 Nucleated RBC % (auto) 0.0 Progress Note: A&P Assessment and plan (1) Acute blood loss anemia: Status: Acute (2) Chest pain: Status: Acute Plan 72 male with anemia, fatigue and CP. He had some ECG changes on admission when he was anemic but since transfusion ECG has improved back to normal. He has no symptoms currently. BP is elevated. Adding amlodipine 2.5 mg. Intermediate risk for perioperative complications. Time Spent With Patient Time: Total time managing care of this patient today ____ minutes. Progress Note: Quality Stroke Does the patient have a stroke diagnosis?: No Procedures Date of Service Date of Service: 11/21/22
[2022-11-21] MEDS: TiZANidine HCL 4 MG TABLET PO (20:04)
[2022-11-21] MEDS: Loratadine 10 MG TABLET 5 MG PO (20:05)
[2022-11-21] MEDS: amLODIPine Besylate 2.5 MG TABLET PO (20:05)
[2022-11-22] VITALS (7 sets, daily range): BP systolic 114–146; BP diastolic 65–70; PULSE 66–94; RESP 14–18; TEMP 36.1–36.9; O2SAT 94–98
[2022-11-22] MEDS: 0.9 % Sodium Chloride Flush 3 ML SYRINGE IVFLUSH ×3 (00:21→19:55)
[2022-11-22] MEDS: Levothyroxine Sodium 75 MCG TABLET G-TUBE (05:56)
[2022-11-22] MEDS: traMADoL HCL 50 MG TABLET PO ×3 (09:31→22:54)
[2022-11-22] MEDS: amLODIPine Besylate 2.5 MG TABLET PO (09:31)
[2022-11-22] MEDS: Cyanocobalamin (Vitamin B-12) 1,000 MCG TABLET 1000 MCG G-TUBE (09:31)
[2022-11-22] MEDS: Folic Acid 1 MG TABLET PO (09:31)
[2022-11-22] MEDS: DULoxetine HCl 30 MG CAPSULE.DR PO (09:32)
[2022-11-22] MEDS: Gabapentin 400 MG CAPSULE G-TUBE ×3 (09:32→19:54)
[2022-11-22] MEDS: DULoxetine HCl 60 MG CAPSULE.DR PO (09:32)
[2022-11-22] MEDS: Multivitamin TABLET 1 TAB PO (09:32)
[2022-11-22] MEDS: Fluticasone Propionate 100 MCG BLST.W.DEV 2 PUFF INHALE ×2 (12:08→19:07)
--- NOTE | 2022-11-22 12:11 | HO.PM.IMPN ---
Subjective Subjective Date of Service: 11/22/22 Interval History: seen and examined this morning follow up for anemia no overnight events no chest pain Review of Systems Review of Systems: Yes all other systems are reviewed and are negative Constitutional Constitutional: Denies chills and Denies fever(s) ENT Ears, Nose, Mouth, and Throat: Denies dizziness Cardiovascular Cardiovascular: Denies chest pain, Denies palpitations and Denies dyspnea Respiratory Respiratory: Denies cough and Denies dyspnea Gastrointestinal Gastrointestinal: Denies abdominal pain Neurologic Neurologic: Denies dizziness Endocrine Endocrine: Denies palpitations Physical Exam Vital Signs: Vital Signs: Last Vital Signs Temp 98.1 F 11/22/22 11:56 Pulse 76 11/22/22 11:56 Resp 18 11/22/22 11:56 BP 146/70 H 11/22/22 11:56 Pulse Ox 98 11/22/22 11:56 O2 Del Method 11/22/22 11:56 BMI result Body Mass Index 21.7 Appearing in no acute distress lung sounds are clear to auscultation heart regular rate rhythm, clear S1, S2 positive bowel sounds, abdomen is soft, nontender neuro patient is alert x3, no focal deficits Objective Data Active Medications Acetaminophen (Acetaminophen 325 Mg Tablet) 650 mg PO Q6H PRN PRN Reason: Pain, Mild (Pain Scale 1-3) Last Admin: 11/19/22 15:14 Dose: 650 mg Documented By: CAS Albuterol Sulfate (Albuterol Sulfate 90 Mcg 8 Gm Inhaler) 2 puff INHALE RQ4H PRN PRN Reason: for dyspnea Amlodipine Besylate (Amlodipine Besylate 2.5 Mg Tablet) 2.5 mg PO DAILY [facility]; Protocol Last Admin: 11/22/22 09:31 Dose: 2.5 mg Documented By: KIMMY Cyanocobalamin (Cyanocobalamin (Vitamin B-12) 1,000 Mcg Tablet) 1,000 mcg G-TUBE DAILY [facility] Last Admin: 11/22/22 09:31 Dose: 1,000 mcg Documented By: KIMMY Duloxetine HCl (Duloxetine Hcl 30 Mg Capsule.) 30 mg PO DAILY [facility] Last Admin: 11/22/22 09:32 Dose: 30 mg Documented By: KIMMY Duloxetine HCl (Duloxetine Hcl 60 Mg Capsule.) 60 mg PO DAILY [facility] Last Admin: 11/22/22 09:32 Dose: 60 mg Documented By: KIMMY Fluticasone Propionate (Fluticasone Propionate 100 Mcg Blst.W.Dev) 2 puff INHALE RBID [facility] Last Admin: 11/22/22 12:08 Dose: 2 puff Documented By: CLARISSA Fluticasone Propionate (Fluticasone Propionate Nasal 16 Gm [place]) 1 spray NOSTRIL-B DAILY [facility] Last Admin: 11/21/22 10:41 Dose: 1 spray Documented By: HANK Folic Acid (Folic Acid 1 Mg Tablet) 1 mg PO DAILY [facility] Last Admin: 11/22/22 09:31 Dose: 1 mg Documented By: KIMMY Gabapentin (Gabapentin 400 Mg Capsule) 400 mg G-TUBE TID [facility] Last Admin: 11/22/22 09:32 Dose: 400 mg Documented By: KIMMY Levothyroxine Sodium (Levothyroxine Sodium 75 Mcg Tablet) 75 mcg G-TUBE DAILY@0600 [facility] Last Admin: 11/22/22 05:56 Dose: 75 mcg Documented By: RICK Loratadine (Loratadine 10 Mg Tablet) 5 mg PO BEDTIME [facility] Last Admin: 11/21/22 20:05 Dose: 5 mg Documented By: ELIJAH Multivitamins/Vitamin C (Multivitamin Tablet) 1 tab PO DAILY [facility] Last Admin: 11/22/22 09:32 Dose: 1 tab Documented By: KIMMY Non-Formulary Medication (Umeclidinium-Vilanterol [Anoro Ellipta]) 1 inhalation INHALE DAILY [facility] Omeprazole (Omeprazole 20 Mg/10 Ml Susp.Recon) 40 mg G-TUBE DAILY@0630 [facility] Last Admin: 11/22/22 05:55 Dose: 40 mg Documented By: RICK Ondansetron HCl (Ondansetron Hcl 4 Mg/2 Ml Vial) 4 mg IVPUSH Q8H PRN PRN Reason: Nausea and Vomiting Last Admin: 11/21/22 10:41 Dose: 4 mg Documented By: HANK Sodium Chloride (0.9 % Sodium Chloride Flush 3 Ml Syringe) 3 ml IVFLUSH QSHIFT [facility] Last Admin: 11/22/22 09:33 Dose: 3 ml Documented By: KIMMY Tizanidine HCl (Tizanidine Hcl 4 Mg Tablet) 4 mg PO BEDTIME [facility] Last Admin: 11/21/22 20:04 Dose: 4 mg Documented By: ELIJAH Tramadol HCl (Tramadol Hcl 50 Mg Tablet) 50 mg PO Q6H PRN PRN Reason: Pain, Moderate (Pain Scale 4-6 Last Admin: 11/22/22 09:31 Dose: 50 mg Documented By: KIMMY Labs 11/21/22 06:13 11/20/22 06:04 Assessment and Plan (1) Acute blood loss anemia: Status: Acute Plan 72-year-old Yi-speaking male admitted with symptomatic anemia and hypotension Acute on chronic anemia, related to iron deficiency and probable component of chronic dz s/p 1 unit PRBC ordered in the ER Seen evaluated by Hematology, plan for parental iron therapy as he is unable to tolerate oral, recommend venofer 200 x 5 doses, follow-up outpatient if anemia is not corrected in spite of replacement seen by GI - Plan for EGD/colonoscopy Thursday continue PPI H/H stable overnight Hypotension. Resolved Secondary to anemia and possibly some component of hypovolemia Chest pain. Resolved Some anterior changes noted Troponin 12.1 Monitor on telemetry cardiology eval, no further work up required at this time, can proceed with planned EGD/colonoscopy Chronic dysphagia, history of esophageal cancer status post radiation G-tube - over night tube feeds CTA on admission with patchy opacities - ?aspiration. no white count, fever or respirtory symptoms Eats ice cream, jello etc at home but per speech not safe for any po intake at this time given severity of previous MBSS. Keep NPO - has repeat MBSS scheduled as outpatient next week unable to crush cymbalta through [facility] [employer] - pharmacy working on alternative Mental health Continue home medications Hypothyroidism Continue levothyroxine DVT prophylaxis with pneumatic compression boots to [address] Lofton Full code Continue hospital stay for treatment of acute anemia requiring blood transfusion and egd/colonoscopy Time Spent With Patient Time: Total time managing care of this patient today ____ minutes. Quality Stroke Does the patient have a stroke diagnosis?: No VTE Prior VTE?: No VTE Risk Level:: Medical - moderate - high VTE Device Contraindication: N/A - Device Ordered VTE Drug Contraindication: Treatment Not Indicated
[2022-11-22] MEDS: Iron Sucrose Complex 200 MG in 0.9 % Sodium Chloride 100 ML 440 MG IV (14:28)
[2022-11-22] MEDS: Acetaminophen 325 MG TABLET 650 MG PO (19:53)
[2022-11-22] MEDS: Loratadine 10 MG TABLET 5 MG PO (19:54)
[2022-11-22] MEDS: TiZANidine HCL 4 MG TABLET PO (19:54)
[2022-11-23] VITALS (8 sets, daily range): BP systolic 121–148; BP diastolic 63–72; PULSE 71–83; RESP 14–20; TEMP 36.3–36.9; O2SAT 91–98
[2022-11-23] MEDS: ondansetron HCL 4 MG/2 ML VIAL IVPUSH (03:29)
[2022-11-23] MEDS: Levothyroxine Sodium 75 MCG TABLET G-TUBE (06:10)
[2022-11-23] MEDS: Multivitamin TABLET 1 TAB PO (07:50)
[2022-11-23] MEDS: traMADoL HCL 50 MG TABLET PO ×2 (07:50→15:32)
[2022-11-23] MEDS: Cyanocobalamin (Vitamin B-12) 1,000 MCG TABLET 1000 MCG G-TUBE (07:50)
[2022-11-23] MEDS: DULoxetine HCl 30 MG CAPSULE.DR PO (07:50)
[2022-11-23] MEDS: Folic Acid 1 MG TABLET PO (07:50)
[2022-11-23] MEDS: DULoxetine HCl 60 MG CAPSULE.DR PO (07:51)
[2022-11-23] MEDS: Gabapentin 400 MG CAPSULE G-TUBE ×3 (07:51→20:12)
[2022-11-23] MEDS: Fluticasone Propionate Nasal 16 GM SPRAY 1 SPRAY NOSTRIL-B (07:51)
[2022-11-23] MEDS: amLODIPine Besylate 2.5 MG TABLET PO (07:51)
[2022-11-23] MEDS: Iron Sucrose Complex 200 MG in 0.9 % Sodium Chloride 100 ML 440 MG IV (07:52)
[2022-11-23] MEDS: Fluticasone Propionate 100 MCG BLST.W.DEV 2 PUFF INHALE (07:56)
--- NOTE | 2022-11-23 10:36 | P.PNIM_ITS ---
Subjective Subjective Date of Service: 11/23/22 Interval History: seen and examined this morning follow up for anemia no overnight events no chest pain Review of Systems Review of Systems: Yes all other systems are reviewed and are negative Constitutional Constitutional: Denies chills and Denies fever(s) ENT Ears, Nose, Mouth, and Throat: Denies dizziness Cardiovascular Cardiovascular: Denies chest pain, Denies palpitations and Denies dyspnea Respiratory Respiratory: Denies cough and Denies dyspnea Gastrointestinal Gastrointestinal: Denies abdominal pain Neurologic Neurologic: Denies dizziness Endocrine Endocrine: Denies palpitations Physical Exam Vital Signs: Vital Signs: Last Vital Signs Temp 98.5 F 11/23/22 07:44 Pulse 79 11/23/22 07:58 Resp 18 11/23/22 07:58 BP 122/65 11/23/22 07:44 Pulse Ox 98 11/23/22 07:44 O2 Del Method 11/23/22 07:44 BMI result Body Mass Index 21.7 Appearing in no acute distress lung sounds are clear to auscultation heart regular rate rhythm, clear S1, S2 positive bowel sounds, abdomen is soft, nontender neuro patient is alert x3, no focal deficits Objective Data Active Medications Acetaminophen (Acetaminophen 325 Mg Tablet) 650 mg PO Q6H PRN PRN Reason: Pain, Mild (Pain Scale 1-3) Last Admin: 11/22/22 19:53 Dose: 650 mg Documented By: NENA Albuterol Sulfate (Albuterol Sulfate 90 Mcg 8 Gm Inhaler) 2 puff INHALE RQ4H PRN PRN Reason: for dyspnea Amlodipine Besylate (Amlodipine Besylate 2.5 Mg Tablet) 2.5 mg PO DAILY [facility]; Protocol Last Admin: 11/23/22 07:51 Dose: 2.5 mg Documented By: KIMMY Cyanocobalamin (Cyanocobalamin (Vitamin B-12) 1,000 Mcg Tablet) 1,000 mcg G- TUBE DAILY [facility] Last Admin: 11/23/22 07:50 Dose: 1,000 mcg Documented By: KIMMY Duloxetine HCl (Duloxetine Hcl 30 Mg Capsule.) 30 mg PO DAILY [facility] Last Admin: 11/23/22 07:50 Dose: 30 mg Documented By: KIMMY Duloxetine HCl (Duloxetine Hcl 60 Mg Capsule.) 60 mg PO DAILY [facility] Last Admin: 11/23/22 07:51 Dose: 60 mg Documented By: KIMMY Fluticasone Propionate (Fluticasone Propionate 100 Mcg Blst.W.Dev) 2 puff INHALE RBID [facility] Last Admin: 11/23/22 07:56 Dose: 2 puff Documented By: LEENA Fluticasone Propionate (Fluticasone Propionate Nasal 16 Gm [place]) 1 spray NOSTRIL-B DAILY [facility] Last Admin: 11/23/22 07:51 Dose: 1 spray Documented By: KIMMY Folic Acid (Folic Acid 1 Mg Tablet) 1 mg PO DAILY [facility] Last Admin: 11/23/22 07:50 Dose: 1 mg Documented By: KIMMY Gabapentin (Gabapentin 400 Mg Capsule) 400 mg G-TUBE TID [facility] Last Admin: 11/23/22 07:51 Dose: 400 mg Documented By: KIMMY Levothyroxine Sodium (Levothyroxine Sodium 75 Mcg Tablet) 75 mcg G-TUBE DAILY@0600 [facility] Last Admin: 11/23/22 06:10 Dose: 75 mcg Documented By: ALECIA Loratadine (Loratadine 10 Mg Tablet) 5 mg PO BEDTIME [facility] Last Admin: 11/22/22 19:54 Dose: 5 mg Documented By: NENA Multivitamins/Vitamin C (Multivitamin Tablet) 1 tab PO DAILY [facility] Last Admin: 11/23/22 07:50 Dose: 1 tab Documented By: KIMMY Non-Formulary Medication (Umeclidinium-Vilanterol [Anoro Ellipta]) 1 inhalation INHALE DAILY [facility] Omeprazole (Omeprazole 20 Mg/10 Ml Susp.Recon) 40 mg G-TUBE DAILY@0630 [facility] Last Admin: 11/23/22 06:10 Dose: 40 mg Documented By: ALECIA Ondansetron HCl (Ondansetron Hcl 4 Mg/2 Ml Vial) 4 mg IVPUSH Q8H PRN PRN Reason: Nausea and Vomiting Last Admin: 11/23/22 03:29 Dose: 4 mg Documented By: ALECIA Sodium Chloride (0.9 % Sodium Chloride Flush 3 Ml Syringe) 3 ml IVFLUSH QSHIFT [facility] Last Admin: 11/23/22 09:46 Dose: Not Given Documented By: HO.SOLISPE Non-Admin Reason: Previously Administered Tizanidine HCl (Tizanidine Hcl 4 Mg Tablet) 4 mg PO BEDTIME [facility] Last Admin: 11/22/22 19:54 Dose: 4 mg Documented By: NENA Tramadol HCl (Tramadol Hcl 50 Mg Tablet) 50 mg PO Q6H PRN PRN Reason: Pain, Moderate (Pain Scale 4-6 Last Admin: 11/23/22 07:50 Dose: 50 mg Documented By: KIMMY Labs 11/21/22 06:13 11/20/22 06:04 Assessment and Plan (1) Acute blood loss anemia: Status: Acute Plan 72-year-old Thai-speaking male admitted with symptomatic anemia and hypotension Acute on chronic anemia, related to iron deficiency and probable component of chronic dz s/p 1 unit PRBC ordered in the ER Seen evaluated by Hematology, plan for parental iron therapy as he is unable to tolerate oral, recommend venofer 200 x 5 doses, follow-up outpatient if anemia is not corrected in spite of replacement continue PPI H/H stable overnight NPO for egd/colo tomorrow Hypotension. Resolved Secondary to anemia and possibly some component of hypovolemia Chest pain. Resolved Some anterior changes noted Troponin 12.1 Monitor on telemetry cardiology eval, no further work up required at this time, can proceed with planned EGD/colonoscopy Chronic dysphagia, history of esophageal cancer status post radiation G-tube - over night tube feeds CTA on admission with patchy opacities - ?aspiration. no white count, fever or respirtory symptoms Eats ice cream, jello etc at home but per speech not safe for any po intake at this time given severity of previous MBSS. Keep NPO - has repeat MBSS scheduled as outpatient next week unable to crush cymbalta through [employer] - pharmacy working on alternative Mental health Continue home medications Hypothyroidism Continue levothyroxine DVT prophylaxis with pneumatic compression boots to [address] Lofton Full code Continue hospital stay for treatment of acute anemia requiring blood transfusion and egd/colonoscopy Time Spent With Patient Time: Total time managing care of this patient today ____ minutes. Quality Stroke Does the patient have a stroke diagnosis?: No VTE Prior VTE?: No VTE Risk Level:: Medical - moderate - high VTE Device Contraindication: N/A - Device Ordered VTE Drug Contraindication: Treatment Not Indicated
[2022-11-23] MEDS: 0.9 % Sodium Chloride Flush 3 ML SYRINGE IVFLUSH (15:33)
[2022-11-23] MEDS: PEG 3350/Na Sulf,Bicarb,Cl/KCL 4,000 ML SOLN.RECON 4000 ML PO (20:11)
[2022-11-23] MEDS: TiZANidine HCL 4 MG TABLET PO (20:12)
[2022-11-23] MEDS: Loratadine 10 MG TABLET 5 MG PO (20:12)
[2022-11-23] MEDS: Throat Lozenge, Medicated LOZENGE 1 LOZENGE MUCOUS MEM (20:19)
[2022-11-24] VITALS (13 sets, daily range): BP systolic 88–156; BP diastolic 47–78; PULSE 72–122; RESP 16–20; TEMP 36.3–37.2; O2SAT 92–96
[2022-11-24 06:15] LABS: Hematocrit 25.2 % (42.0-52.0); Hemoglobin 8.1 g/dl (14.0-18.0); Mean Corpuscular HGB Conc 32.1 g/dl (31.0-36.0); Mean Corpuscular Hemoglobin 29.3 pg (27.0-33.0); Mean Corpuscular Volume 91.3 fL (80.0-98.0); Mean Platelet Volume 10.1 fL (9.4-12.4); Platelet Count 315 X10*3/uL (160-400); Red Blood Count 2.76 X10*6/uL (4.60-5.80); Red Cell Distribution Width 16.5 % (11.0-16.0); White Blood Count 3.2 X10*3/uL (4.8-10.8)
[2022-11-24] MEDS: DULoxetine HCl 60 MG CAPSULE.DR PO (11:31)
[2022-11-24] MEDS: amLODIPine Besylate 2.5 MG TABLET PO (11:31)
[2022-11-24] MEDS: Folic Acid 1 MG TABLET PO (11:31)
[2022-11-24] MEDS: Multivitamin TABLET 1 TAB PO (11:32)
[2022-11-24] MEDS: Gabapentin 400 MG CAPSULE G-TUBE ×3 (11:32→22:19)
[2022-11-24] MEDS: Cyanocobalamin (Vitamin B-12) 1,000 MCG TABLET 1000 MCG G-TUBE (11:32)
[2022-11-24] MEDS: DULoxetine HCl 30 MG CAPSULE.DR PO (11:34)
--- NOTE | 2022-11-24 11:36 | P.DS_ITS ---
DS: Providers Provider Date of Service: 11/24/22 Date of admission: 11/18/22 16:26 Primary care physician: Tracy Oneill MD Consults: 11/18/22 16:27 Consult to Hematology / Oncology Routine Consulting Provider: Diamond Foster Reason for consultation: anemia Has provider been notified: No 11/19/22 08:02 Consult to Gastroenterology Routine Consulting Provider: Renard Payan Reason for consultation: anemia Has provider been notified: No 11/20/22 09:32 Consult to Cardiology Routine Consulting Provider: [facility] Reason for consultation: ekg changes; preop eval Has provider been notified: No Attending physician on discharge: Aleksandar Montes Discharging clinician: Becca Aguilar DS: Diagnosis Discharge Diagnosis (1) Acute blood loss anemia: Status: Acute DS: Summary Hospital Course Hospital Course: HP as per admitting provider 72-year-old man presenting to the ER after an episode of chest pain, weakness, blurred vision and shaking.? Reports that he got up this morning and felt well he went to his car to clean it off because he had an appointment and suddenly his vision became very right and he was unable to see he was able to lay down in the back of his car and felt very shaky, dizzy and developed substernal chest pain that radiated to both shoulders and his neck posteriorly and lasted about an hour and subsided on its own in the ER. He denied any loss of consciousness.? He reported that he called his daughter and she called EMS.? When EMS he had an episode of vomiting, as blood pressure was also found to be very low which has been chronic for him due to chronic anemia.? He reported that he is very independent, continues to drive.? He has had similar episode in July of 2022 and at that time treated for community-acquired pneumonia with aspiration, dysphagia with PEG tube placement and acute symptomatic blood loss anemia.? In the ER, his hemoglobin was found to be 6.9, hematocrit 22.0 normal platelet count, positive stool occult, systolic BP in the 90s.? He was treated with cefepime, IV fluids.? He will be admitted for further management and treatment of symptomatic anemia . Acute on chronic anemia, related to iron deficiency and probable component of chronic dz s/p 1 unit PRBC Seen evaluated by Hematology, s/p venofer 200 x 5 doses, follow-up outpatient if anemia is not corrected in spite of replacement continue PPI s/p EGD/colo with Diverticulosis and moderate hemorrhoids Hypotension.? Resolved Secondary to anemia and possibly some component of hypovolemia Chest pain.? Resolved Some anterior changes noted Troponin 12.1 Monitor on telemetry cardiology eval,? no further work up required Chronic dysphagia, history of esophageal cancer status post radiation G-tube - over night tube feeds continue feeds as per home management Mental health Continue home medications Hypothyroidism Continue levothyroxine Time Spent with Patient Time attestation: Total time managing care of this patient today ____ minutes. Discharge coordination time: Greater than 30 minutes Quality: Safe Use of Opioids Does Pt have an Active Cancer Diagnosis on the Problem List?: No Quality: Stroke Does the patient have a stroke diagnosis?: No Physical Exam Vital Signs: Vital Signs: Last Vital Signs Temp 98.9 F 11/24/22 07:52 Pulse 77 11/24/22 07:52 Resp 20 11/24/22 07:52 BP 152/74 H 11/24/22 07:52 Pulse Ox 96 11/24/22 07:52 O2 Del Method 11/24/22 07:52 BMI result Body Mass Index 21.7 Appearing in no acute distress head is normocephalic atraumatic eyes pupils are PERRLA sclera is anicteric mouth throat mucous membranes are intact and moist neck is supple no lymphadenopathy, no JVD noted lung sounds are clear to auscultation heart regular rate rhythm, clear S1, S2 positive bowel sounds, abdomen is soft, nontender neuro patient is alert x3, no focal deficits DS: Data Data Completed and Pending Completed studies during hospitalization [Text1]: Procedures Dilation of Esophagus, Via Natural or Artificial Opening Endoscopic (03/04/21) Insertion of Feeding Device into Stomach, Open Approach (07/09/22) Transfusion of Nonautologous Red Blood Cells into Peripheral Vein, Percutaneous Approach (07/09/22) Labs on day of discharge: Laboratory Results - last 24 hr 11/24/22 05:51 WBC 3.2 L RBC 2.76 L Hgb 8.1 L Hct 25.2 L MCV 91.3 MCH 29.3 MCHC 32.1 RDW 16.5 H Plt Count 315 MPV 10.1 Absolute Nucleated RBC 0.000 Nucleated RBC % (auto) 0.0 Discharge Plan Discharge Anticipated Discharge Date/Time: 11/24/22 11:35 Patient Disposition: Home, Self-Care Discharge Diagnosis: Anemia iron deficiency Chest pain Referrals: Tracy Oneill MD [Primary Care Provider] - 1 Week Discharge Medications: New amlodipine 2.5 mg Tablet 2.5 mg PO DAILY Qty: 30 0RF Protocol: Hold for SBP< HOLD for SBP < : 90 Continued Anoro Ellipta 62.5-25 mcg/actuation Blister With Device 1 inh INHALATION DAILY albuterol sulfate 90 mcg/actuation HFA aerosol inhaler 2 puff PO Q4H PRN (Reason: for dyspnea) multivitamin Tablet 1 tab feeding tube DAILY Qty: 30 0RF gabapentin 400 mg capsule 400 mg feeding tube TID Qty: 30 0RF cyanocobalamin (vitamin B-12) [Vitamin B-12] 1,000 mcg tablet 1,000 mcg feeding tube DAILY Qty: 30 0RF levothyroxine 75 mcg tablet 75 mcg feeding tube DAILY@0600 Qty: 30 0RF acetaminophen [M-PAP] 160 mg/5 mL liquid 10 ml TID PRN (Reason: pain) triamcinolone acetonide 0.5 % cream 1 appl topical BID tizanidine 4 mg tablet 1 tab PO BEDTIME folic acid 1 mg tablet 1 tab PO DAILY fluticasone propionate [Flovent HFA] 110 mcg/actuation HFA aerosol inhaler 2 puff INHALATION BID duloxetine 30 mg capsule,delayed release(DR/EC) 1 cap PO DAILY duloxetine 60 mg capsule,delayed release(DR/EC) 1 cap PO DAILY levocetirizine 5 mg tablet 1 tab PO BEDTIME omeprazole 40 mg capsule,delayed release(DR/EC) 1 cap PO DAILY fluticasone propionate 50 mcg/actuation spray,suspension 1 spray intranasal DAILY tramadol 50 mg tablet 1 tab PO TID PRN (Reason: pain) Discharge Orders: Discharge Order (Routine); Ordered 11/24/22 Ordered By: Becca Aguilar Diet: Advance to usual diet Activity on Discharge: As tolerated Stand Alone Forms: Patient Portal Discharge page Care Plan Goals: Complete resolution of symptoms Health Concerns: Anemia iron deficiency Chest pain Plan of Treatment: Follow up with primary care provider as needed Take all medications as prescribed Assessment: See discharge summary
[2022-11-24] MEDS: Fluticasone Propionate Nasal 16 GM SPRAY 1 SPRAY NOSTRIL-B (11:38)
--- NOTE | 2022-11-24 11:54 | HO.ANESPROP2 ---
[facility] Active Problems Active Problems: All Active Problems (Updated 11/19/22 @ 09:13 by Diamond Foster MD) Acute blood loss anemia (Acute) Chest pain (Acute) Heme positive stool (Acute) Aspiration pneumonitis (Acute) Emphysema lung (Acute) Pulmonary aspiration (Acute) Pain around PEG tube site (Acute) S/P gastrostomy tube (G tube) placement, follow-up exam (Acute) Dysphagia (Acute) Lumbar spondylosis (Acute) Cluneal neuropathy (Acute) Left hip pain (Acute) Fibromyalgia (Acute) Osteoarthritis (Acute) Post laminectomy syndrome (Acute) Primary osteoarthritis of left knee (Acute) Pulmonary fibrosis (Acute) Pulmonary nodules (Acute) Syncope due to orthostatic hypotension (Acute) Anemia (Acute) History of external beam radiation therapy (Acute) Precordial chest pain (Acute) Atherosclerotic cardiovascular disease (Acute) Ascending aortic aneurysm (Acute) Osteoarthritis of left shoulder (Acute) Past Medical History Medical History (Updated 11/19/22 @ 09:13 by Diamond Foster MD) Aortic aneurysm Arthritis Back pain Cancer COPD (chronic obstructive pulmonary disease) COVID-19 Depression Difficulty swallowing Elevated cholesterol Esophageal stricture GERD (gastroesophageal reflux disease) History of chemotherapy History of epistaxis HTN (hypertension) Hx of radiation therapy Lumbar radiculitis Normocytic anemia Osteoarthritis of left shoulder Pain around PEG tube site Post laminectomy syndrome Pulmonary nodule Thyroid disease Family History Family History Father Brain cancer Mother CVD (cardiovascular disease) Maternal Aunt Diabetes Family history of problems with anesthesia: No Surgical History Surgical History (Updated 11/19/22 @ 09:13 by Diamond Foster MD) H/O colonoscopy History of back surgery History of esophagogastroduodenoscopy (EGD) History of nasal surgery History of transurethral resection of prostate History of Problems with Anesthesia: No Social History Social History Household Members: Spouse Household Members Other:: 3 Housing: Apartment Do you presently have visiting nurse or other home services: Yes Alcohol intake: never Patient Tobacco Use Status: Former Tobacco user Quit Date: 40 years ago Tobacco use type: Cigarette Cigarette Packs Per Day: 3 Years Smoked: 25 e-Cigarette/Vaping Use: Never Used Second Hand Smoke Exposure: No Advance Directives Date on File: 03/04/21 service: No Current occupational status: disabled Meds Allergies Allergy/AdvReac Type Severity Reaction Status Date / Time Penicillins Allergy Rash Verified 10/21/22 13:50 aspirin [ASA] AdvReac Intermediate GI BLEED, Verified 10/21/22 13:50 Headaches Active Medications: Current Medications Acetaminophen (Acetaminophen 325 Mg Tablet) 650 mg PO Q6H PRN PRN Reason: Pain, Mild (Pain Scale 1-3) Last Admin: 11/22/22 19:53 Dose: 650 mg Albuterol Sulfate (Albuterol Sulfate 90 Mcg 8 Gm Inhaler) 2 puff INHALE RQ4H PRN PRN Reason: for dyspnea Amlodipine Besylate (Amlodipine Besylate 2.5 Mg Tablet) 2.5 mg PO DAILY [facility]; Protocol Last Admin: 11/24/22 11:31 Dose: 2.5 mg Benzocaine (Throat Lozenge, Medicated Lozenge) 1 lozenge MUCOUS MEM Q2H PRN PRN Reason: Sore Throat Last Admin: 11/23/22 20:19 Dose: 1 lozenge Cyanocobalamin (Cyanocobalamin (Vitamin B-12) 1,000 Mcg Tablet) 1,000 mcg G-TUBE DAILY [facility] Last Admin: 11/24/22 11:32 Dose: 1,000 mcg Duloxetine HCl (Duloxetine Hcl 30 Mg Capsule.Dr) 30 mg PO DAILY [facility] Last Admin: 11/24/22 11:34 Dose: 30 mg Duloxetine HCl (Duloxetine Hcl 60 Mg Capsule.) 60 mg PO DAILY [facility] Last Admin: 11/24/22 11:31 Dose: 60 mg Fluticasone Propionate (Fluticasone Propionate 100 Mcg Blst.W.Dev) 2 puff INHALE RBID [facility] Last Admin: 11/23/22 22:51 Dose: Not Given Fluticasone Propionate (Fluticasone Propionate Nasal 16 Gm [place]) 1 spray NOSTRIL-B DAILY [facility] Last Admin: 11/24/22 11:38 Dose: 1 spray Folic Acid (Folic Acid 1 Mg Tablet) 1 mg PO DAILY [facility] Last Admin: 11/24/22 11:31 Dose: 1 mg Gabapentin (Gabapentin 400 Mg Capsule) 400 mg G-TUBE TID [facility] Last Admin: 11/24/22 11:32 Dose: 400 mg Levothyroxine Sodium (Levothyroxine Sodium 75 Mcg Tablet) 75 mcg G-TUBE DAILY@0600 [facility] Last Admin: 11/24/22 03:30 Dose: Not Given Loratadine (Loratadine 10 Mg Tablet) 5 mg PO BEDTIME [facility] Last Admin: 11/23/22 20:12 Dose: 5 mg Multivitamins/Vitamin C (Multivitamin Tablet) 1 tab PO DAILY [facility] Last Admin: 11/24/22 11:32 Dose: 1 tab Non-Formulary Medication (Umeclidinium-Vilanterol [Anoro Ellipta]) 1 inhalation INHALE DAILY [facility] Omeprazole (Omeprazole 20 Mg/10 Ml Susp.Recon) 40 mg G-TUBE DAILY@0630 [facility] Last Admin: 11/24/22 03:31 Dose: Not Given Ondansetron HCl (Ondansetron Hcl 4 Mg/2 Ml Vial) 4 mg IVPUSH Q8H PRN PRN Reason: Nausea and Vomiting Last Admin: 11/23/22 03:29 Dose: 4 mg Sodium Chloride (0.9 % Sodium Chloride Flush 3 Ml Syringe) 3 ml IVFLUSH QSHIFT [facility] Last Admin: 11/24/22 03:30 Dose: Not Given Tizanidine HCl (Tizanidine Hcl 4 Mg Tablet) 4 mg PO BEDTIME [facility] Last Admin: 11/23/22 20:12 Dose: 4 mg Tramadol HCl (Tramadol Hcl 50 Mg Tablet) 50 mg PO Q6H PRN PRN Reason: Pain, Moderate (Pain Scale 4-6 Last Admin: 11/23/22 15:32 Dose: 50 mg Home Medications Medication Instructions Recorded Confirmed Last Taken Type umeclidinium 62.5 mcg-vilanterol 1 inh inhalation DAILY 06/21/20 11/18/22 03/17/22 History 25 mcg/actuation powdr for inhalation (Anoro Ellipta) albuterol sulfate 90 mcg/actuation 2 puff PO Q4H PRN for dyspnea 03/18/22 11/18/22 Unknown History aerosol inhaler acetaminophen 160 mg/5 mL oral 10 ml TID PRN pain 11/18/22 11/18/22 Unknown History liquid (M-PAP) duloxetine 30 mg capsule,delayed 1 cap PO DAILY 11/18/22 11/18/22 Unknown History release duloxetine 60 mg capsule,delayed 1 cap PO DAILY 11/18/22 11/18/22 Unknown History release fluticasone propionate 110 2 puff inhalation BID 11/18/22 11/18/22 Unknown History mcg/actuation HFA aerosol inhaler (Flovent HFA) fluticasone propionate 50 1 spray intranasal DAILY 11/18/22 11/18/22 Unknown History mcg/actuation nasal spray,suspension folic acid 1 mg tablet 1 tab PO DAILY 11/18/22 11/18/22 Unknown History levocetirizine 5 mg tablet 1 tab PO BEDTIME 11/18/22 11/18/22 Unknown History omeprazole 40 mg capsule,delayed 1 cap PO DAILY 11/18/22 11/18/22 Unknown History release tizanidine 4 mg tablet 1 tab PO BEDTIME 11/18/22 11/18/22 Unknown History triamcinolone acetonide 0.5 % 1 appl topical BID 11/18/22 11/18/22 Unknown History topical cream tramadol 50 mg tablet 1 tab PO TID PRN pain 11/19/22 11/19/22 Unknown History Exam Exam Date and Time: November 24, 2022 1154 Height,Weight and Vital Signs: Height 5 ft 7 in Weight 63.049 kg Last Vital Signs Temp 98.5 F 11/24/22 11:41 Pulse 83 11/24/22 11:41 Resp 20 11/24/22 11:41 BP 156/74 H 11/24/22 11:41 Pulse Ox 96 11/24/22 11:41 O2 Del Method 11/24/22 11:41 Pertinent Lab Results Pertinent Lab Results: Laboratory Tests 11/18/22 11/18/22 11/18/22 12:03 12:03 12:03 WBC 6.2 RBC 2.40 L D Hgb 6.9 L* D Hct 22.0 L D MCV 91.7 MCH 28.8 MCHC 31.4 RDW 16.5 H Plt Count 374 MPV 9.5 Immature Gran % (Auto) 0.6 H Neut % (Auto) 80.2 H Lymph % (Auto) 8.9 L [place] % (Auto) 8.7 Eos % (Auto) 1.0 Baso % (Auto) 0.6 Lymph # (Auto) 0.6 L [place] # (Auto) 0.5 Eos # (Auto) 0.1 Baso # (Auto) 0.0 Abs Immat Gran (auto) 0.04 H Absolute Neuts (auto) 5.0 Absolute Nucleated RBC 0.000 Nucleated RBC % (auto) 0.0 Absolute Retic 0.037 Percent Retic 1.5 Immature Retic Fraction 27.2 H Retic Hgb Equivalent 27.1 L PT INR APTT Sodium 142 Potassium 3.7 Chloride 105 Carbon Dioxide 27 Anion Gap 14 BUN 20 H Creatinine 0.86 Estim Creat Clear Calc 69.2 Estimated GFR > 60 Random Glucose 91 Lactic Acid Lactic Acid F/U @ 2Hr Calcium 9.0 Magnesium 2.1 Iron TIBC % Saturation Unsat Iron Binding Ferritin Total Bilirubin 0.2 Direct Bilirubin < 0.2 AST 20 ALT 10 Alkaline Phosphatase 61 Lactate Dehydrogenase Total Creatine Kinase 102 Troponin I High Sens 5.4 B-Natriuretic Peptide Total Protein 6.6 Albumin 3.7 Vitamin B12 Folate TSH Free T4 Urine Color Urine Appearance Urine pH Ur Specific [place] Urine Protein Urine Glucose (UA) Urine Ketones Urine Blood Urine Nitrite Ur Leukocyte Esterase Stool Occult Blood Urine Opiates Screen Urine Fentanyl Screen Ur Barbiturates Screen Ur Phencyclidine Scrn Ur Amphetamines Screen U Benzodiazepines Scrn Urine Cocaine Screen U Marijuana (THC) Screen Ethyl Alcohol COVID-19 (VIC) COVID-19 Clin Com Blood Type Antibody Screen Crossmatch 11/18/22 11/18/22 11/18/22 12:03 12:03 12:03 WBC RBC Hgb Hct MCV MCH MCHC RDW Plt Count MPV Immature Gran % (Auto) Neut % (Auto) Lymph % (Auto) [place] % (Auto) Eos % (Auto) Baso % (Auto) Lymph # (Auto) [place] # (Auto) Eos # (Auto) Baso # (Auto) Abs Immat Gran (auto) Absolute Neuts (auto) Absolute Nucleated RBC Nucleated RBC % (auto) Absolute Retic Percent Retic Immature Retic Fraction Retic Hgb Equivalent PT 13.1 INR 1.1 APTT 24.3 L Sodium Potassium Chloride Carbon Dioxide Anion Gap BUN Creatinine Estim Creat Clear Calc Estimated GFR Random Glucose Lactic Acid Lactic Acid F/U @ 2Hr Calcium Magnesium Iron 27 L TIBC 317 % Saturation 9 L Unsat Iron Binding 290 Ferritin 26 Total Bilirubin Direct Bilirubin AST ALT Alkaline Phosphatase Lactate Dehydrogenase 195 Total Creatine Kinase Troponin I High Sens B-Natriuretic Peptide 47 Total Protein Albumin Vitamin B12 1038 H Folate > 20.0 TSH 5.23 H Free T4 0.82 Urine Color Urine Appearance Urine pH Ur Specific [place] Urine Protein Urine Glucose (UA) Urine Ketones Urine Blood Urine Nitrite Ur Leukocyte Esterase Stool Occult Blood Urine Opiates Screen Urine Fentanyl Screen Ur Barbiturates Screen Ur Phencyclidine Scrn Ur Amphetamines Screen U Benzodiazepines Scrn Urine Cocaine Screen U Marijuana (THC) Screen Ethyl Alcohol < 10 COVID-19 (VIC) COVID-19 Clin Com Blood Type Antibody Screen Crossmatch 11/18/22 11/18/22 11/18/22 12:04 13:33 13:44 WBC RBC Hgb Hct MCV MCH MCHC RDW Plt Count MPV Immature Gran % (Auto) Neut % (Auto) Lymph % (Auto) [place] % (Auto) Eos % (Auto) Baso % (Auto) Lymph # (Auto) [place] # (Auto) Eos # (Auto) Baso # (Auto) Abs Immat Gran (auto) Absolute Neuts (auto) Absolute Nucleated RBC Nucleated RBC % (auto) Absolute Retic Percent Retic Immature Retic Fraction Retic Hgb Equivalent PT INR APTT Sodium Potassium Chloride Carbon Dioxide Anion Gap BUN Creatinine Estim Creat Clear Calc Estimated GFR Random Glucose Lactic Acid 2.6 H* Lactic Acid F/U @ 2Hr Calcium Magnesium Iron TIBC % Saturation Unsat Iron Binding Ferritin Total Bilirubin Direct Bilirubin AST ALT Alkaline Phosphatase Lactate Dehydrogenase Total Creatine Kinase Troponin I High Sens B-Natriuretic Peptide Total Protein Albumin Vitamin B12 Folate TSH Free T4 Urine Color Yellow Urine Appearance Clear Urine pH 7.5 Ur Specific [place] >= 1.030 H Urine Protein Negative Urine Glucose (UA) Negative Urine Ketones Negative Urine Blood Negative Urine Nitrite Negative Ur Leukocyte Esterase Negative Stool Occult Blood Urine Opiates Screen Urine Fentanyl Screen Ur Barbiturates Screen Ur Phencyclidine Scrn Ur Amphetamines Screen U Benzodiazepines Scrn Urine Cocaine Screen U Marijuana (THC) Screen Ethyl Alcohol COVID-19 (VIC) COVID-19 Clin Com Blood Type O Positive Antibody Screen NEGATIVE Crossmatch See Detail 11/18/22 11/18/22 11/18/22 13:49 15:39 15:39 WBC RBC Hgb Hct MCV MCH MCHC RDW Plt Count MPV Immature Gran % (Auto) Neut % (Auto) Lymph % (Auto) [place] % (Auto) Eos % (Auto) Baso % (Auto) Lymph # (Auto) [place] # (Auto) Eos # (Auto) Baso # (Auto) Abs Immat Gran (auto) Absolute Neuts (auto) Absolute Nucleated RBC Nucleated RBC % (auto) Absolute Retic Percent Retic Immature Retic Fraction Retic Hgb Equivalent PT INR APTT Sodium Potassium Chloride Carbon Dioxide Anion Gap BUN Creatinine Estim Creat Clear Calc Estimated GFR Random Glucose Lactic Acid Lactic Acid F/U @ 2Hr 0.8 Calcium Magnesium Iron TIBC % Saturation Unsat Iron Binding Ferritin Total Bilirubin Direct Bilirubin AST ALT Alkaline Phosphatase Lactate Dehydrogenase Total Creatine Kinase Troponin I High Sens 12.1 D B-Natriuretic Peptide Total Protein Albumin Vitamin B12 Folate TSH Free T4 Urine Color Urine Appearance Urine pH Ur Specific [place] Urine Protein Urine Glucose (UA) Urine Ketones Urine Blood Urine Nitrite Ur Leukocyte Esterase Stool Occult Blood Urine Opiates Screen Not Detected Urine Fentanyl Screen Not Detected Ur Barbiturates Screen Not Detected Ur Phencyclidine Scrn Not Detected Ur Amphetamines Screen Not Detected U Benzodiazepines Scrn Not Detected Urine Cocaine Screen Not Detected U Marijuana (THC) Screen Not Detected Ethyl Alcohol COVID-19 (VIC) COVID-[place] Com Blood Type Antibody Screen Crossmatch 11/18/22 11/18/22 11/18/22 15:39 19:35 20:15 WBC RBC Hgb 8.0 L Hct 24.7 L MCV MCH MCHC RDW Plt Count MPV Immature Gran % (Auto) Neut % (Auto) Lymph % (Auto) [place] % (Auto) Eos % (Auto) Baso % (Auto) Lymph # (Auto) [place] # (Auto) Eos # (Auto) Baso # (Auto) Abs Immat Gran (auto) Absolute Neuts (auto) Absolute Nucleated RBC Nucleated RBC % (auto) Absolute Retic Percent Retic Immature Retic Fraction Retic Hgb Equivalent PT INR APTT Sodium Potassium Chloride Carbon Dioxide Anion Gap BUN Creatinine Estim Creat Clear Calc Estimated GFR Random Glucose Lactic Acid Lactic Acid F/U @ 2Hr Calcium Magnesium Iron TIBC % Saturation Unsat Iron Binding Ferritin Total Bilirubin Direct Bilirubin AST ALT Alkaline Phosphatase Lactate Dehydrogenase Total Creatine Kinase Troponin I High Sens B-Natriuretic Peptide Total Protein Albumin Vitamin B12 Folate TSH Free T4 Urine Color Urine Appearance Urine pH Ur Specific [place] Urine Protein Urine Glucose (UA) Urine Ketones Urine Blood Urine Nitrite Ur Leukocyte Esterase Stool Occult Blood POSITIVE Urine Opiates Screen Urine Fentanyl Screen Ur Barbiturates Screen Ur Phencyclidine Scrn Ur Amphetamines Screen U Benzodiazepines Scrn Urine Cocaine Screen U Marijuana (THC) Screen Ethyl Alcohol COVID-19 (VIC) Negative COVID-19 L[place] Com See Note Blood Type Antibody Screen Crossmatch 11/19/22 11/19/2223 05:24 05:24 06:04 WBC 10.7 RBC 2.60 L Hgb 7.9 L Hct 24.2 L MCV 93.1 MCH 30.4 MCHC 32.6 RDW 16.3 H Plt Count 351 MPV 10.3 Immature Gran % (Auto) 0.6 H Neut % (Auto) 84.8 H Lymph % (Auto) 5.4 L [place] % (Auto) 7.2 Eos % (Auto) 1.5 Baso % (Auto) 0.5 Lymph # (Auto) 0.6 L [place] # (Auto) 0.8 Eos # (Auto) 0.2 Baso # (Auto) 0.1 Abs Immat Gran (auto) 0.06 H Absolute Neuts (auto) 9.1 H Absolute Nucleated RBC 0.000 Nucleated RBC % (auto) 0.0 Absolute Retic Percent Retic Immature Retic Fraction Retic Hgb Equivalent PT INR APTT Sodium 141 Potassium 3.8 Chloride 107 Carbon Dioxide 27 Anion Gap 11 L BUN 17 H Creatinine 0.70 Estim Creat Clear Calc 85.0 Estimated GFR > 60 Random Glucose 111 Lactic Acid Lactic Acid F/U @ 2Hr Calcium 8.6 Magnesium Iron 325 H TIBC 350 % Saturation 93 H Unsat Iron Binding < 25 Ferritin Total Bilirubin 0.8 Direct Bilirubin AST 20 ALT 8 Alkaline Phosphatase 63 Lactate Dehydrogenase Total Creatine Kinase Troponin I High Sens B-Natriuretic Peptide Total Protein 6.1 L Albumin 3.4 L Vitamin B12 Folate TSH Free T4 Urine Color Urine Appearance Urine pH Ur Specific [place] Urine Protein Urine Glucose (UA) Urine Ketones Urine Blood Urine Nitrite Ur Leukocyte Esterase Stool Occult Blood Urine Opiates Screen Urine Fentanyl Screen Ur Barbiturates Screen Ur Phencyclidine Scrn Ur Amphetamines Screen U Benzodiazepines Scrn Urine Cocaine Screen U Marijuana (THC) Screen Ethyl Alcohol COVID-19 (VIC) COVID-19 Clin Com Blood Type Antibody Screen Crossmatch 11/20/22 11/21/22 11/24/22 06:04 06:13 05:51 WBC 5.3 3.2 L RBC 2.77 L 2.76 L Hgb 8.1 L 8.1 L Hct 25.1 L 25.2 L MCV 90.6 91.3 MCH 29.2 29.3 MCHC 32.3 32.1 RDW 16.1 H 16.5 H Plt Count 365 315 MPV 10.0 10.1 Immature Gran % (Auto) Neut % (Auto) Lymph % (Auto) [place] % (Auto) Eos % (Auto) Baso % (Auto) Lymph # (Auto) [place] # (Auto) Eos # (Auto) Baso # (Auto) Abs Immat Gran (auto) Absolute Neuts (auto) Absolute Nucleated RBC 0.000 0.000 Nucleated RBC % (auto) 0.0 0.0 Absolute Retic Percent Retic Immature Retic Fraction Retic Hgb Equivalent PT INR APTT Sodium 142 Potassium 3.6 Chloride 106 Carbon Dioxide 26 Anion Gap 14 BUN 12 Creatinine 0.58 Estim Creat Clear Calc 102.6 Estimated GFR > 60 Random Glucose 73 Lactic Acid Lactic Acid F/U @ 2Hr Calcium 8.4 Magnesium Iron TIBC % Saturation Unsat Iron Binding Ferritin Total Bilirubin Direct Bilirubin AST ALT Alkaline Phosphatase Lactate Dehydrogenase Total Creatine Kinase Troponin I High Sens B-Natriuretic Peptide Total Protein Albumin Vitamin B12 Folate TSH Free T4 Urine Color Urine Appearance Urine pH Ur Specific [place] Urine Protein Urine Glucose (UA) Urine Ketones Urine Blood Urine Nitrite Ur Leukocyte Esterase Stool Occult Blood Urine Opiates Screen Urine Fentanyl Screen Ur Barbiturates Screen Ur Phencyclidine Scrn Ur Amphetamines Screen U Benzodiazepines Scrn Urine Cocaine Screen U Marijuana (THC) Screen Ethyl Alcohol COVID-19 (VIC) COVID-19 Clin Com Blood Type Antibody Screen Crossmatch Airway Mallampati Class: II (Edentulous) TM Dist: >3cm Neck ROM: Limited Loose/Missing/Broken Teeth: Yes, Upper and Lower Heart: RRR Lungs: CTA Assessment and Plan Assessment Anesthesia Assessment: Anesthesia Plan Discussed and Chart Reviewed Final Anesthetic Review Family History of Problems with Anesthesia: No History of Problems with Anesthesia: No NPO: Yes ASA Class: IV Final Preanesthetic Review: Meds/Allgs Chart Reviewed, Consent Obtained/Reviewed and Anes Risks/Benef Reviewed Patient Risk: Intermediate Procedure Risk: Intermediate Anesthetic Plan Anesthetic Plan: MAC: Disposition: Standard PACU
--- NOTE | 2022-11-24 12:59 | MHC.SHP ---
Pre-Procedural Eval Section A Date of Service: 11/24/22 The patient is an INPATIENT: Yes Changes since office visit: Yes New Medical Problems, Yes Changes in Medication and Yes Patient answered all questions; No Cold of Flu in the past 2 weeks The History & Physical has been completed within 30 days and I have reviewed it.: Yes Section B Chief Complaint: Anemia, chest pain Allergies: Allergies Allergy/AdvReac Type Severity Reaction Status Date / Time Penicillins Allergy Rash Verified 10/21/22 13:50 aspirin [ASA] AdvReac Intermediate GI BLEED, Verified 10/21/22 13:50 Headaches Plan I have reviewed the history and physical and performed a pertinent physical examination on my patient. No changes have occurred unless specified. Time Spent With Patient Time: Total time managing care of this patient today ____ minutes.
--- NOTE | 2022-11-24 12:59 | PM.OP ---
Brief Operative Note Date of Service: 11/24/22 Pre-op diagnosis: anemia, dysphagia, esophageal stricture Post-op diagnosis: other (Esophageal stricture, Hiatal hernia, gastritis, AVMs duodenum and right colon, diverticulosis) Procedure: FLEXIBLE TRANSORAL UPPER GASTROINTESTINAL ENDOSCOPY WITH BIOPSIES, ESOPHAGEAL BALLOON DILATION AND APC OF DUODENAL AVM AND COLONOSCOPY TILL CECUM WITH APC OF RIGHT COLONIC AVMS Surgeon: Jonah Kim MD Anesthesia: MAC Was an Application Development Consultant used for this Procedure?: Yes Application Development Consultant: Christine Najera Estimated blood loss (mL): 2 Pathology: other (A. gastric antrum bxs, R/O H. pylori B. G-E junction bxs, R/O Joyner's esophagus) Condition: stable Disposition: floor
--- NOTE | 2022-11-24 12:59 | W.PM.OPN ---
Operative Note Operative Note Date of Service: 11/24/22 Narrative: Pre-op diagnosis:?anemia, dysphagia, esophageal stricture Post-op diagnosis:?other (Esophageal stricture, Hiatal hernia, gastritis, AVMs duodenum and right colon, diverticulosis) Surgeon: Jonah Kim MD Anesthesia:?MAC FLEXIBLE TRANSORAL UPPER GASTROINTESTINAL ENDOSCOPY WITH BIOPSIES, ESOPHAGEAL BALLOON DILATION AND APC OF DUODENAL AVM AND COLONOSCOPY TILL CECUM WITH APC OF RIGHT COLONIC AVMS UPPER ENDOSCOPY Consent: Indications for the procedure and potential complications of bleeding, perforation, reaction to medications and missed diagnosis were discussed with the patient and informed consent was obtained. Instrument: Olympus Ultra thin upper endoscope and GIF H 190 mid size upper endoscope Monitoring: Vital signs and clinical assessment, continuous EKG monitoring, Pulse oximetry, Carbon Dioxide monitoring and blood pressure monitoring were done throughout the procedure. Procedure: The patient was placed in the left lateral decubitis position and pre-procedure medications were administered and a bite block was placed. The ultrathin upper endoscope was inserted into the mouth and advanced under direct vision to the third part of duodenum. A careful inspection was made as the upper endoscope was withdrawn including a retroflexed examination of the proximal stomach; The mid size upper endoscope was then used to perform the therapeutic part of the procedure Findings and interventions are described below. Findings: Larynx: Normal Esophagus: Tight stricture at 25 cms. Esophageal balloon dilation was performed with 10 and 11 mm CRE balloon x 60 sec at each level. Midsize upper endoscope passed with mild to moderate resistance . Multiple non-obstructing rings in the mid and distal esophagus. GE junction at 37 cms, hiatal hernia 40 cms. 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 Stomach: Internal bolster of PEG tube visualized in the body of the stomach. Mild gastric erythema. Antral biopsies were obtained to check for H Pylori. Grade 4 flap valve on retroflexed examination of the cardia. Duodenum: A 4-5 mm non-bleeding AVM in the bulb - treated with APC. Normal descending duodenum Intervention: Biopsies as noted above COLONOSCOPY PROCEDURE NOTE Consent: Indications for the procedure and potential complications of bleeding, perforation, reaction to medications and missed diagnosis were discussed with the patient and informed consent was obtained. Instrument: Olympus PCF H 190 L variable stiffness pediatric colonoscope Monitoring: Vital signs and clinical assessment, intermittent blood pressure monitoring, continuous EKG monitoring, Pulse oximetry and Carbon Dioxide monitoring were done throughout the procedure. Colon withdrawl time was 29 minutes. Procedure: The patient was placed in the left lateral decubitis position and pre-procedure medications were administered. After a digital rectal examination of the ano-rectum, the video colonoscope was inserted into the rectum and advanced through the colon to the cecum. The colonoscope was slowly withdrawn in a retrograde panoramic fashion and the colon mucosa was carefully examined including a retroflexed view of the rectum. Findings and interventions are described below. Procedure Difficulty: Colon was long and tortuous and there was excessive spasm and recurrent loop formation. Pt was placed in the supine position and abdominal pressure was applied to intubate the ascedning colon. Findings: Terminal Ileum: Not evaluated Cecum: Multiple (8 to 10) 5 to 10 mm non-bleeding AVMs in the cecum and proximal AC - ablated with APC Ascending Colon: Multiple 5 to 10 mm non-bleeding AVMs in the cecum and proximal AC - ablated with APC Transverse Colon: Normal Descending Colon: Normal Sigmoid Colon: Moderate diverticulosis Rectum: Normal Ano-rectum: Normal Colon preparation: Good after some irrigation Impression and Post Procedure Diagnosis: Endoscopy Findings: ESOPHAGUS: Tight stricture at 25 cms. Esophageal balloon dilation was performed with 10 and 11 mm CRE balloon x 60 sec at each level. Midsize upper endoscope passed with mild to moderate resistance . Multiple non-obstructing rings in the mid and distal esophagus. GE junction at 37 cms, hiatal hernia 40 cms. 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 STOMACH: Internal bolster of PEG tube visualized in the body of the stomach. Mild gastric erythema. Antral biopsies were obtained to check for H Pylori. DUODENUM: A 4-5 mm non-bleeding AVM in the bulb - treated with APC. Colonoscopy Findings: No polyps were detected Multiple 5 to 10 mm non-bleeding AVMs in the cecum and proximal AC - ablated with APC Moderate diverticulosis seen in the sigmoid colon Plan: Await pathology results Repeat EGD in [address] Payan or Dr Kim (for dilation of esophageal stricture). Repeat Colonoscopy in 10 yrs if pt remains in stable health (Adult colonoscope for future colonoscopies). Above findings were reviewed with the patient.
--- NOTE | 2022-11-24 14:05 | MHC.CLN ---
F/U ENDOSCOPY/COLONOSCOPY SCHEDULED FOR TODAY PT IS CURRENTLY NPO IF TF TO RE-START; NOCTURNAL TUBE FEEDING: OSMOLITE 1.5, 120 ML PER HOUR X 8 HOURS (960 ML TOTAL) FOR NOCTURNAL FEED WITH FLUSH 240 ML FREE WATER Q 6 HOURS PROVIDES 1440 KCALS (23 KCALS/KG); 60 G PROTEIN (.95 G/KG); 732 ML FREE WATER FROM FORMULA PLUS FLUSH 960 TQ=5701 ML (26.9 ML/KG) TOTAL FREE WATER TUBE FEEDING COMPARABLE TO FORMULA AND SCHEDULE RECEIVING AT HOME FOLLOWING WITH TEAM
--- NOTE | 2022-11-24 14:39 | MHC.CM.PN ---
DP: PT HAS BEEN MEDICALLY CLEARED FOR DC HOME, NO SERVICES, DAUGHTER AMANDA AWARE. RN AWARE. FAMILY WILL TRANSPORT
[2022-11-24] MEDS: traMADoL HCL 50 MG TABLET PO ×2 (17:26→17:35)
[2022-11-24] MEDS: 0.9 % Sodium Chloride Flush 3 ML SYRINGE IVFLUSH ×2 (17:45→22:19)
[2022-11-24] MEDS: TiZANidine HCL 4 MG TABLET PO (22:19)
[2022-11-24] MEDS: Loratadine 10 MG TABLET 5 MG PO (22:19)
--- NOTE | 2022-11-24 23:55 | PM.EVENT ---
Event Note Date of Service: 11/24/22 Event Note: pt hypotensive and febrile. will order bolujs fluids, labs and iv abx Time Spent With Patient Time: Total time managing care of this patient today ____ minutes.
[2022-11-25] VITALS (15 sets, daily range): BP systolic 86–147; BP diastolic 38–70; PULSE 82–94; RESP 15–20; TEMP 36.9–38.6; O2SAT 91–95
[2022-11-25] MEDS: Lactated Ringers 1,000 ML 999 ML IV (00:11)
[2022-11-25] MEDS: vancomycin HCL 1,500 MG in 0.9 % Sodium Chloride 500 ML 333.33 MG IV (00:41)
[2022-11-25] MEDS: cefEPime HCl 2 GM in 0.9 % Sodium Chloride 50 ML IV ×4 (00:42→23:07)
[2022-11-25] MEDS: Acetaminophen 325 MG TABLET 650 MG PO ×2 (01:14→08:10)
[2022-11-25] MEDS: Levothyroxine Sodium 75 MCG TABLET G-TUBE (06:02)
[2022-11-25 07:24] LABS: Anion Gap 11 (12-20); Blood Urea Nitrogen 9 mg/dL (9-16); Calcium 8.2 mg/dL (8.4-10.2); Carbon Dioxide 26 mmol/L (22-29); Chloride 103 mmol/L (96-108); Creatinine Clr Calc Pharmacy 87.5; Estimated Glomerular Filt Rate > 60; Glucose Random 146 mg/dL (60-115); Potassium 3.2 mmol/L (3.3-5.1); Sodium 137 mmol/L (135-145)
--- NOTE | 2022-11-25 07:35 | P.PNIM_ITS ---
Subjective Subjective Date of Service: 11/24/22 Interval History: seen and examined this morning follow up for anemia no overnight events no chest pain Review of Systems Review of Systems: Yes all other systems are reviewed and are negative Constitutional Constitutional: Denies chills and Denies fever(s) ENT Ears, Nose, Mouth, and Throat: Denies dizziness Cardiovascular Cardiovascular: Denies chest pain, Denies palpitations and Denies dyspnea Respiratory Respiratory: Denies cough and Denies dyspnea Gastrointestinal Gastrointestinal: Denies abdominal pain Neurologic Neurologic: Denies dizziness Endocrine Endocrine: Denies palpitations Physical Exam Vital Signs: Vital Signs: Last Vital Signs Temp 98.4 F 11/25/22 07:20 Pulse 82 11/25/22 07:20 Resp 20 11/25/22 07:20 BP 92/44 L 11/25/22 07:20 Pulse Ox 94 11/25/22 07:20 O2 Del Method 11/25/22 07:20 O2 Flow Rate 2 11/25/22 03:51 BMI result Body Mass Index 21.7 Appearing in no acute distress lung sounds are clear to auscultation heart regular rate rhythm, clear S1, S2 positive bowel sounds, abdomen is soft, nontender neuro patient is alert x3, no focal deficits Objective Data Active Medications Acetaminophen (Acetaminophen 325 Mg Tablet) 650 mg PO Q6H PRN PRN Reason: Pain, Mild (Pain Scale 1-3) Last Admin: 11/25/22 01:14 Dose: 650 mg Documented By: RANJIT Albuterol Sulfate (Albuterol Sulfate 90 Mcg 8 Gm Inhaler) 2 puff INHALE RQ4H PRN PRN Reason: for dyspnea Amlodipine Besylate (Amlodipine Besylate 2.5 Mg Tablet) 2.5 mg PO DAILY [facility]; Protocol Last Admin: 11/24/22 11:31 Dose: 2.5 mg Documented By: MARY Benzocaine (Throat Lozenge, Medicated Lozenge) 1 lozenge MUCOUS MEM Q2H PRN PRN Reason: Sore Throat Last Admin: 11/23/22 20:19 Dose: 1 lozenge Documented By: PATRICK-GAGEZENaomi Cyanocobalamin (Cyanocobalamin (Vitamin B-12) 1,000 Mcg Tablet) 1,000 mcg G- TUBE DAILY [facility] Last Admin: 11/24/22 11:32 Dose: 1,000 mcg Documented By: MARY Duloxetine HCl (Duloxetine Hcl 30 Mg Capsule.) 30 mg PO DAILY [facility] Last Admin: 11/24/22 11:34 Dose: 30 mg Documented By: MARY Duloxetine HCl (Duloxetine Hcl 60 Mg Capsule.) 60 mg PO DAILY [facility] Last Admin: 11/24/22 11:31 Dose: 60 mg Documented By: MARY Fluticasone Propionate (Fluticasone Propionate 100 Mcg Blst.W.Dev) 2 puff INHALE RBID [facility] Last Admin: 11/24/22 20:16 Dose: Not Given Documented By: CASPER Non-Admin Reason: Patient Refused Fluticasone Propionate (Fluticasone Propionate Nasal 16 Gm [place]) 1 spray NOSTRIL-B DAILY [facility] Last Admin: 11/24/22 11:38 Dose: 1 spray Documented By: MARY Folic Acid (Folic Acid 1 Mg Tablet) 1 mg PO DAILY [facility] Last Admin: 11/24/22 11:31 Dose: 1 mg Documented By: MARY Gabapentin (Gabapentin 400 Mg Capsule) 400 mg G-TUBE TID [facility] Last Admin: 11/24/22 22:19 Dose: 400 mg Documented By: RANJIT Cefepime HCl 2 gm/ Sodium (Chloride) 50 mls @ 100 mls/hr IV Q8H [facility] Last Infusion: 11/25/22 01:23 Dose: 0 mls/hr Documented By: RANJIT Levothyroxine Sodium (Levothyroxine Sodium 75 Mcg Tablet) 75 mcg G-TUBE DAILY@0600 [facility] Last Admin: 11/25/22 06:02 Dose: 75 mcg Documented By: RANJIT Loratadine (Loratadine 10 Mg Tablet) 5 mg PO BEDTIME [facility] Last Admin: 11/24/22 22:19 Dose: 5 mg Documented By: RANJIT Multivitamins/Vitamin C (Multivitamin Tablet) 1 tab PO DAILY [facility] Last Admin: 11/24/22 11:32 Dose: 1 tab Documented By: MARY Non-Formulary Medication (Umeclidinium-Vilanterol [Anoro Ellipta]) 1 inhalation INHALE DAILY [facility] Omeprazole (Omeprazole 20 Mg/10 Ml Susp.Recon) 40 mg G-TUBE DAILY@0630 [facility] Last Admin: 11/25/22 06:02 Dose: 40 mg Documented By: RANJIT Ondansetron HCl (Ondansetron Hcl 4 Mg/2 Ml Vial) 4 mg IVPUSH Q8H PRN PRN Reason: Nausea and Vomiting Last Admin: 11/23/22 03:29 Dose: 4 mg Documented By: ALECIA Pharmacy Consult (Consult Rx Vancomycin Dosing) 1 each MISCELLANE DAILY PRN PRN Reason: Consult order Sodium Chloride (0.9 % Sodium Chloride Flush 3 Ml Syringe) 3 ml IVFLUSH QSHIFT [facility] Last Admin: 11/24/22 22:19 Dose: 3 ml Documented By: RANJIT Tizanidine HCl (Tizanidine Hcl 4 Mg Tablet) 4 mg PO BEDTIME [facility] Last Admin: 11/24/22 22:19 Dose: 4 mg Documented By: RANJIT Tramadol HCl (Tramadol Hcl 50 Mg Tablet) 50 mg PO Q6H PRN PRN Reason: Pain, Moderate (Pain Scale 4-6 Last Admin: 11/24/22 17:35 Dose: 50 mg Documented By: MARY Labs 11/24/22 05:51 11/25/22 06:50 Labs: Laboratory Results - last 24 hr 11/25/22 11/25/22 00:13 06:50 Anion Gap 11 L Estim Creat Clear Calc 87.5 Estimated GFR > 60 Random Glucose 146 H Lactic Acid 1.0 Calcium 8.2 L Assessment and Plan (1) Acute blood loss anemia: Status: Acute Plan 72-year-old [place]-speaking male admitted with symptomatic anemia and hypotension Acute on chronic anemia, related to iron deficiency and probable component of chronic dz s/p 1 unit PRBC ordered in the ER Seen evaluated by Hematology, plan for parental iron therapy as he is unable to tolerate oral, recommend venofer 200 x 5 doses, follow-up outpatient if anemia is not corrected in spite of replacement continue PPI H/H stable overnight s/p egd/colo tomorrow Found hemorrhoids and diverticulosis Hypotension. Resolved Secondary to anemia and possibly some component of hypovolemia Chest pain. Resolved Some anterior changes noted Troponin 12.1 Monitor on telemetry cardiology eval, no further work up required at this time, can proceed with planned EGD/colonoscopy Chronic dysphagia, history of esophageal cancer status post radiation G-tube - over night tube feeds CTA on admission with patchy opacities - ?aspiration. no white count, fever or respirtory symptoms Eats ice cream, jello etc at home but per speech not safe for any po intake at this time given severity of previous MBSS. Keep NPO - has repeat MBSS scheduled as outpatient next week unable to crush cymbalta through gtube - pharmacy working on alternative Mental health Continue home medications Hypothyroidism Continue levothyroxine DVT prophylaxis with pneumatic compression boots to [address] Montes Full code Continue hospital stay for treatment of acute anemia requiring blood transfusion and egd/colonoscopy Time Spent With Patient Time: Total time managing care of this patient today ____ minutes. Quality Stroke Does the patient have a stroke diagnosis?: No VTE Prior VTE?: No VTE Risk Level:: Medical - moderate - high VTE Device Contraindication: N/A - Device Ordered VTE Drug Contraindication: Treatment Not Indicated
[2022-11-25 07:49] LABS: Hematocrit 22.1 % (42.0-52.0); Hemoglobin 7.2 g/dl (14.0-18.0)
[2022-11-25] MEDS: Fluticasone Propionate 100 MCG BLST.W.DEV 2 PUFF INHALE ×2 (08:03→20:47)
[2022-11-25] MEDS: traMADoL HCL 50 MG TABLET PO ×2 (08:06→22:00)
[2022-11-25] MEDS: DULoxetine HCl 60 MG CAPSULE.DR PO (08:06)
[2022-11-25] MEDS: amLODIPine Besylate 2.5 MG TABLET PO (08:06)
[2022-11-25] MEDS: Cyanocobalamin (Vitamin B-12) 1,000 MCG TABLET 1000 MCG G-TUBE (08:06)
[2022-11-25] MEDS: Folic Acid 1 MG TABLET PO (08:06)
[2022-11-25] MEDS: DULoxetine HCl 30 MG CAPSULE.DR PO (08:06)
[2022-11-25] MEDS: Multivitamin TABLET 1 TAB PO (08:11)
[2022-11-25] MEDS: 0.9 % Sodium Chloride Flush 3 ML SYRINGE IVFLUSH ×2 (08:13→22:04)
--- NOTE | 2022-11-25 09:00 | PHA.PROG ---
Admission Date/Time: November 18, 2022 16:26 Indication: SEPSIS Weight in k.049 kg Adjusted body weight in K.88 Amasa body weight in Kg: Obesity Dosing Indication % IBW: Serum Creatinine - Last 168 Hours 11/18/22 11/19/22 11/20/22 12:03 05:24 06:04 Creatinine 0.86 0.70 0.58 11/25/22 06:50 Creatinine 0.68 Estimated CrCl and GFR - Last 168 Hours 11/18/22 11/19/22 11/20/22 12:03 05:24 06:04 Estim Creat Clear Calc 69.2 85.0 102.6 Estimated GFR > 60 > 60 > 60 11/25/22 06:50 Estim Creat Clear Calc 87.5 Estimated GFR > 60 Vancomycin Loading Dose: 1500MG Q24H Current Vancomycin Dosing Regimen: 1250 Q24H Vancomycin Monitoring using AUC goal of 400 - 600 range with trough as surrogate marker: AUC 482, TROUGH 13.6 Date and Time for next Vancomycin Level to be drawn: 11/26 @2100 Pharmacist Comments on Vancomycin Plan: Vancomycin dosing will take advantage of [employer] as a clinical decision support tool that uses Bayesian modeling to calculate individual patient's pharmacokinetic parameters and forecast the patient's drug concentration time course with the target goal AUC 24 range of 400 - 600 mg/L/hr.
[2022-11-25] MEDS: Gabapentin 400 MG CAPSULE G-TUBE ×3 (12:53→22:00)
[2022-11-25] MEDS: Potassium Chloride ER 20 MEQ TAB.ER.PRT PO (12:56)
[2022-11-25] MEDS: Fluticasone Propionate Nasal 16 GM SPRAY 1 SPRAY NOSTRIL-B (12:56)
--- NOTE | 2022-11-25 13:05 | P.PNIM_ITS ---
Subjective Subjective Date of Service: 11/25/22 Interval History: seen and examined this morning follow up for anemia no overnight events no chest pain Review of Systems Review of Systems: Yes all other systems are reviewed and are negative Constitutional Constitutional: Denies chills and Denies fever(s) ENT Ears, Nose, Mouth, and Throat: Denies dizziness Cardiovascular Cardiovascular: Denies chest pain, Denies palpitations and Denies dyspnea Respiratory Respiratory: Denies cough and Denies dyspnea Gastrointestinal Gastrointestinal: Denies abdominal pain Neurologic Neurologic: Denies dizziness Endocrine Endocrine: Denies palpitations Physical Exam Vital Signs: Vital Signs: Last Vital Signs Temp 98.8 F 11/25/22 10:52 Pulse 89 11/25/22 10:52 Resp 20 11/25/22 10:52 BP 116/58 L 11/25/22 10:52 Pulse Ox 92 11/25/22 10:52 O2 Del Method 11/25/22 10:52 O2 Flow Rate 2 11/25/22 03:51 BMI result Body Mass Index 21.7 Objective Data Active Medications Acetaminophen (Acetaminophen 325 Mg Tablet) 650 mg PO Q6H PRN PRN Reason: Pain, Mild (Pain Scale 1-3) Last Admin: 11/25/22 08:10 Dose: 650 mg Documented By: MARY Albuterol Sulfate (Albuterol Sulfate 90 Mcg 8 Gm Inhaler) 2 puff INHALE RQ4H PRN PRN Reason: for dyspnea Amlodipine Besylate (Amlodipine Besylate 2.5 Mg Tablet) 2.5 mg PO DAILY [facility]; Protocol Last Admin: 11/25/22 08:06 Dose: 2.5 mg Documented By: MARY Benzocaine (Throat Lozenge, Medicated Lozenge) 1 lozenge MUCOUS MEM Q2H PRN PRN Reason: Sore Throat Last Admin: 11/23/22 20:19 Dose: 1 lozenge Documented By: PATRICK-JOZEB Cyanocobalamin (Cyanocobalamin (Vitamin B-12) 1,000 Mcg Tablet) 1,000 mcg G- TUBE DAILY [facility] Last Admin: 11/25/22 08:06 Dose: 1,000 mcg Documented By: MARY Docusate Sodium (Docusate Sodium 100 Mg Capsule) 100 mg PO BID [facility] Duloxetine HCl (Duloxetine Hcl 30 Mg Capsule.Dr) 30 mg PO DAILY [facility] Last Admin: 11/25/22 08:06 Dose: 30 mg Documented By: MARY Duloxetine HCl (Duloxetine Hcl 60 Mg Capsule.) 60 mg PO DAILY [facility] Last Admin: 11/25/22 08:06 Dose: 60 mg Documented By: MARY Ferrous Sulfate (Ferrous Sulfate 324 Mg Tablet.) 325 mg PO TID [facility] Fluticasone Propionate (Fluticasone Propionate 100 Mcg Blst.W.Dev) 2 puff INHALE RBID [facility] Last Admin: 11/25/22 08:03 Dose: 2 puff Documented By: LEENA Fluticasone Propionate (Fluticasone Propionate Nasal 16 Gm [place]) 1 spray N OSTRIL-B DAILY [facility] Last Admin: 11/25/22 12:56 Dose: 1 spray Documented By: MARY Folic Acid (Folic Acid 1 Mg Tablet) 1 mg PO DAILY [facility] Last Admin: 11/25/22 08:06 Dose: 1 mg Documented By: MARY Gabapentin (Gabapentin 400 Mg Capsule) 400 mg G-TUBE TID [facility] Last Admin: 11/25/22 12:53 Dose: 400 mg Documented By: MARY Cefepime HCl 2 gm/ Sodium (Chloride) 50 mls @ 100 mls/hr IV Q8H [facility] Last Infusion: 11/25/22 12:51 Dose: 0 mls/hr Documented By: MARY Vancomycin HCl 1,250 mg/ (Sodium Chloride) 250 mls @ 166.667 mls/hr IV Q24H [facility] Levothyroxine Sodium (Levothyroxine Sodium 75 Mcg Tablet) 75 mcg G-TUBE DAILY@ 0600 [facility] Last Admin: 11/25/22 06:02 Dose: 75 mcg Documented By: RANJIT Loratadine (Loratadine 10 Mg Tablet) 5 mg PO BEDTIME [facility] Last Admin: 11/24/22 22:19 Dose: 5 mg Documented By: RANJIT Multivitamins/Vitamin C (Multivitamin Tablet) 1 tab PO DAILY [facility] Last Admin: 11/25/22 08:11 Dose: 1 tab Documented By: MARY Non-Formulary Medication (Umeclidinium-Vilanterol [Anoro Ellipta]) 1 inhalation INHALE DAILY [facility] Omeprazole (Omeprazole 20 Mg/10 Ml Susp.Recon) 40 mg G-TUBE DAILY@0630 [facility] Last Admin: 11/25/22 06:02 Dose: 40 mg Documented By: RANJIT Ondansetron HCl (Ondansetron Hcl 4 Mg/2 Ml Vial) 4 mg IVPUSH Q8H PRN PRN Reason: Nausea and Vomiting Last Admin: 11/23/22 03:29 Dose: 4 mg Documented By: ALECIA Pharmacy Consult (Consult Rx Vancomycin Dosing) 1 each MISCELLANE DAILY PRN PRN Reason: Consult order Polyethylene Glycol (Polyethylene Glycol 3350 17 Gm Powd.Pack) 17 gm PO DAILY [facility] Sodium Chloride (0.9 % Sodium Chloride Flush 3 Ml Syringe) 3 ml IVFLUSH QSHIFT [facility] Last Admin: 11/25/22 08:13 Dose: 3 ml Documented By: MARY Tizanidine HCl (Tizanidine Hcl 4 Mg Tablet) 4 mg PO BEDTIME [facility] Last Admin: 11/24/22 22:19 Dose: 4 mg Documented By: RANJIT Tramadol HCl (Tramadol Hcl 50 Mg Tablet) 50 mg PO Q6H PRN PRN Reason: Pain, Moderate (Pain Scale 4-6 Last Admin: 11/25/22 08:06 Dose: 50 mg Documented By: MARY Labs 11/25/22 06:50 11/25/22 06:50 Labs: Laboratory Results - last 24 hr 11/25/22 11/25/22 00:13 06:50 Anion Gap 11 L Estim Creat Clear Calc 87.5 Estimated GFR > 60 Random Glucose 146 H Lactic Acid 1.0 Calcium 8.2 L Assessment and Plan (1) Acute blood loss anemia: Status: Acute Plan 72-year-old [place]-speaking male admitted with symptomatic anemia and hypotension Syncope. No further episodes episode last night after egd/colo likely related to hyptension post procedure and anemia Acute on chronic anemia, related to iron deficiency and probable component of chronic dz s/p 1 unit PRBC ordered in the ER Seen evaluated by Hematology, plan for parental iron therapy as he is unable to tolerate oral, recommend venofer 200 x 5 doses continue PPI s/p egd/colo>hemorrhoids and diverticulosis oral iron with bowel regimen tx one unit PRBC Hypotension. Resolved Secondary to anemia and possibly some component of hypovolemia Chest pain. Resolved Some anterior changes noted Troponin 12.1 Monitor on telemetry cardiology eval, no further work up required at this time, can proceed with planned EGD/colonoscopy Chronic dysphagia, history of esophageal cancer status post radiation G-tube - over night tube feeds CTA on admission with patchy opacities - ?aspiration. no white count, fever or respirtory symptoms Eats ice cream, jello etc at home but per speech not safe for any po intake at this time given severity of previous MBSS. Keep NPO - has repeat MBSS scheduled as outpatient next week unable to crush cymbalta through gtube - pharmacy working on alternative Mental health Continue home medications Hypothyroidism Continue levothyroxine DVT prophylaxis with pneumatic compression boots to [address] Montes Full code DISPO plan for dc home when medically clear Continue hospital stay for treatment of acute anemia requiring blood transfusion and egd/colonoscopy Time Spent With Patient Time: Total time managing care of this patient today ____ minutes. Quality Stroke Does the patient have a stroke diagnosis?: No VTE Prior VTE?: No VTE Risk Level:: Medical - moderate - high VTE Device Contraindication: N/A - Device Ordered VTE Drug Contraindication: Treatment Not Indicated
--- NOTE | 2022-11-25 15:11 | HO.POSTANES ---
Post Anesthesia Evaluation Post Anesthesia Evaluation Vital Signs: Vital Signs Temp Pulse Resp BP Pulse Ox O2 Del Method O2 Flow Rate 11/25/22 12:32 92 Room Air 11/25/22 10:52 98.8 F 89 20 116/58 L 92 Room Air 11/25/22 08:07 83 11/25/22 08:05 83 18 11/25/22 07:20 98.4 F 82 20 92/44 L 94 Room Air 11/25/22 03:51 99.1 F 85 15 90/42 L 95 Nasal Cannula 2 Anesthesia: Monitored Mental Status: Awake Pain Control: Satisfactory Nausea/Vomiting: None Hydration: Adequate Anesthesia-Related Issues: No Anes. Related Issues
[2022-11-25] MEDS: Ferrous Sulfate 324 MG TABLET.DR 325 MG PO ×2 (17:29→22:00)
[2022-11-25] MEDS: Loratadine 10 MG TABLET 5 MG PO (22:00)
[2022-11-25] MEDS: TiZANidine HCL 4 MG TABLET PO (22:00)
[2022-11-25] MEDS: Throat Lozenge, Medicated LOZENGE 1 LOZENGE MUCOUS MEM (23:09)
[2022-11-26] MEDS: vancomycin HCL 1,250 MG in 0.9 % Sodium Chloride 250 ML 166.67 MG IV
[2022-11-26 03:16] VITALS: BP 118/60; PULSE 92; RESP 20; TEMP 37.7; O2SAT 94
[2022-11-26] MEDS: Levothyroxine Sodium 75 MCG TABLET G-TUBE (05:58)
[2022-11-26 07:14] LABS: Creatinine Clr Calc Pharmacy 104.4; Estimated Glomerular Filt Rate > 60
[2022-11-26 07:32] VITALS: BP 122/59; PULSE 89; RESP 16; TEMP 37.3; O2SAT 95
[2022-11-26] MEDS: Fluticasone Propionate 100 MCG BLST.W.DEV 2 PUFF INHALE (08:25)
[2022-11-26 08:28] VITALS: PULSE 89; RESP 16; O2SAT 95
[2022-11-26 09:02] LABS: Hematocrit 26.1 % (42.0-52.0); Hemoglobin 8.7 g/dl (14.0-18.0); Mean Corpuscular HGB Conc 33.3 g/dl (31.0-36.0); Mean Corpuscular Hemoglobin 30.3 pg (27.0-33.0); Mean Corpuscular Volume 90.9 fL (80.0-98.0); Mean Platelet Volume 10.1 fL (9.4-12.4); Platelet Count 250 X10*3/uL (160-400); Red Blood Count 2.87 X10*6/uL (4.60-5.80); Red Cell Distribution Width 16.7 % (11.0-16.0); White Blood Count 6.8 X10*3/uL (4.8-10.8)
[2022-11-26] MEDS: DULoxetine HCl 30 MG CAPSULE.DR PO (09:06)
[2022-11-26] MEDS: Ferrous Sulfate 324 MG TABLET.DR 325 MG PO (09:06)
[2022-11-26] MEDS: cefEPime HCl 2 GM in 0.9 % Sodium Chloride 50 ML IV (09:06)
[2022-11-26] MEDS: Cyanocobalamin (Vitamin B-12) 1,000 MCG TABLET 1000 MCG G-TUBE (09:06)
[2022-11-26] MEDS: Multivitamin TABLET 1 TAB PO (09:07)
[2022-11-26] MEDS: DULoxetine HCl 60 MG CAPSULE.DR PO (09:07)
[2022-11-26] MEDS: polyethylene glycoL 3350 17 GM POWD.PACK PO (09:07)
[2022-11-26] MEDS: Fluticasone Propionate Nasal 16 GM SPRAY 1 SPRAY NOSTRIL-B (09:07)
[2022-11-26] MEDS: Folic Acid 1 MG TABLET PO (09:07)
[2022-11-26] MEDS: Gabapentin 400 MG CAPSULE G-TUBE (09:07)
[2022-11-26] MEDS: amLODIPine Besylate 2.5 MG TABLET PO (09:07)
[2022-11-26] MEDS: 0.9 % Sodium Chloride Flush 3 ML SYRINGE IVFLUSH (09:08)
[2022-11-26] MEDS: Acetaminophen 325 MG TABLET 650 MG PO (09:13)
[2022-11-26 09:16] VITALS: BP 138/69; PULSE 81
[2022-11-26 09:19] LABS: Anion Gap 9 (12-20); Blood Urea Nitrogen 9 mg/dL (9-16); Calcium 8.4 mg/dL (8.4-10.2); Carbon Dioxide 30 mmol/L (22-29); Chloride 103 mmol/L (96-108); Creatinine Clr Calc Pharmacy 100.9; Estimated Glomerular Filt Rate > 60; Glucose Random 89 mg/dL (60-115); Potassium 3.2 mmol/L (3.3-5.1); Sodium 139 mmol/L (135-145)
--- NOTE | 2022-11-26 10:27 | MHC.CM.PN ---
IMM 11/26/22, PT MEDICALLY CLEARED FOR D/C HOME SELF-CARE, PT REPORTS HE WILL CALL FOR [facility].
== END 2022-11-26 11:40 | disposition home or self-care (01) | DRG 377 ==
LOC: HO.ED 14:00 → HO.EDOVER 16:38 → HO.IMC 11-19 17:56
PROVIDERS: Internal Medicine; Internal Medicine Gastroenterology; Physician Assistant; Physician Assistant Medical; Admitting Provider Nurse Practitioner Acute Care; Emergency Provider Emergency Medicine; PCP Internal Medicine; Visit Provider Nurse Practitioner Acute Care
PROC: 0D738ZZ Dilation of Lower Esophagus, Via Natural or Artificial Opening Endoscopic (ICD-10-PCS; principal; 2022-11-24 13:50)
DX: K55.21 Angiodysplasia of colon with hemorrhage (principal); J69.0 Pneumonitis due to inhalation of food and vomit; D62 Acute posthemorrhagic anemia; K22.2 Esophageal obstruction; K57.31 Diverticulosis of large intestine without perforation or abscess with bleeding; K44.9 Diaphragmatic hernia without obstruction or gangrene; K22.70 Barrett's esophagus without dysplasia; E86.1 Hypovolemia; I95.9 Hypotension, unspecified; E78.5 Hyperlipidemia, unspecified; F32.A Depression, unspecified; D63.8 Anemia in other chronic diseases classified elsewhere; I95.81 Postprocedural hypotension; E03.9 Hypothyroidism, unspecified; J44.9 Chronic obstructive pulmonary disease, unspecified; Z20.822 Contact with and (suspected) exposure to COVID-19; Z85.21 Personal history of malignant neoplasm of larynx; Z92.21 Personal history of antineoplastic chemotherapy; Z92.3 Personal history of irradiation; Z93.1 Gastrostomy status; Z87.891 Personal history of nicotine dependence; Z88.0 Allergy status to penicillin; Z88.6 Allergy status to analgesic agent; Z79.51 Long term (current) use of inhaled steroids; Z79.890 Hormone replacement therapy; Z79.899 Other long term (current) drug therapy
CPT/HCPCS: 36415; 70450; 71045; 71275; 80048; 80053; 80076; 80307; 81003; 82077; 82272; 82550; 82565; 82607; 82728; 82746; 83540; 83605; 83615; 83735; 83880; 84439; 84443; 84484; 85014; 85018; 85025; 85027; 85045; 85610; 85730; 86850; 86900; 86901; 86923; 87040; 87635; 88305; 88342; 93005; 94640; 97161; 99285; C1726; J0692; J1756; J2405; J3371; P9016; Q9967

== ENCOUNTER 2022-12-03 15:17 | Outpatient (REF) | payer OTHER, SELFPAY ==
[2022-12-03 15:35] LABS: MANUAL DIFF FLAG NO
[2022-12-03 15:53] LABS: Basophils Absolute Auto 0.1 X10*3/uL (0.0-0.2); Basophils Percent Auto 1.6 % (0-2); Eosinophils Absolute Auto 0.1 X10*3/uL (0.0-0.4); Eosinophils Percent Auto 4.5 % (0-4); Hematocrit 30.2 % (42.0-52.0); Hemoglobin 9.9 g/dl (14.0-18.0); Imm Gran Abs Auto 0.02 X10*3/uL (0.00-0.03); Imm Gran Pct Auto 0.6 % (0.0-0.4); Lymphocytes Absolute Auto 0.7 X10*3/uL (1.2-4.9); Lymphocytes Percent Auto 21.6 % (20-40); Mean Corpuscular HGB Conc 32.8 g/dl (31.0-36.0); Mean Corpuscular Hemoglobin 30.8 pg (27.0-33.0); Mean Corpuscular Volume 94.1 fL (80.0-98.0); Mean Platelet Volume 9.5 fL (9.4-12.4); Monocytes Absolute Auto 0.6 X10*3/uL (0.1-1.2); Monocytes Percent Auto 17.7 % (2-11); Neutrophils Absolute Auto 1.7 x10*3/uL (2.0-8.3); Platelet Count 407 X10*3/uL (160-400); Red Blood Count 3.21 X10*6/uL (4.60-5.80); Red Cell Distribution Width 18.4 % (11.0-16.0); White Blood Count 3.1 X10*3/uL (4.8-10.8)
[2022-12-03 16:28] LABS: Alanine Aminotransferase 12 U/L (0-40); Albumin Level 3.8 g/dL (3.5-5.0); Alkaline Phosphatase 65 U/L (39-117); Anion Gap 12 (12-20); Aspartate Amino Transferase 24 U/L (5-37); Bilirubin Total 0.4 mg/dL (0.0-1.0); Blood Urea Nitrogen 14 mg/dL (9-16); Calcium 9.8 mg/dL (8.4-10.2); Carbon Dioxide 31 mmol/L (22-29); Chloride 99 mmol/L (96-108); Estimated Glomerular Filt Rate > 60; Glucose Random 89 mg/dL (60-115); Potassium 4.7 mmol/L (3.3-5.1); Sodium 137 mmol/L (135-145); Total Protein 6.8 g/dL (6.5-8.0)
[2022-12-03 16:44] LABS: Free T4 (Free Thyroxine) 0.69 ng/dL (0.71-1.85)
== END 2022-12-03 15:18 | disposition home or self-care (01) ==
LOC: HO.LAB 15:17
PROVIDERS: PCP Internal Medicine; Visit Provider Internal Medicine Medical Oncology
DX: C11.1 Malignant neoplasm of posterior wall of nasopharynx (principal); R13.10 Dysphagia, unspecified; J31.2 Chronic pharyngitis; R63.4 Abnormal weight loss
CPT/HCPCS: 36415; 80053; 84134; 84439; 84443; 85025

== ENCOUNTER 2022-12-08 11:49 | Day surgery (SDC) | payer OTHER, SELFPAY ==
--- NOTE | 2022-12-05 12:08 | HO.ANESPROP2 ---
Documented by User: Naty Castro NP 12/05/22 12:17 HPI - Anesthesia Eval Consult details Narrative: 72yo M for Upper Endoscopy with Balloon Dilitation Multiple previous EGD with dilation (s/p chemo/rad for throat CA). Very small mouth opening. Last EGD, [place] 11/2022 with MAC during [facility] [place] admit with severe anemia (H&H = 6&20) PMFSH Active Problems Active Problems: All Active Problems (Updated 12/04/22 @ 00:02 by Dariel Kemp) Emphysema lung (Acute) Pulmonary aspiration (Acute) Pain around PEG tube site (Acute) S/P gastrostomy tube (G tube) placement, follow-up exam (Acute) Dysphagia (Acute) Lumbar spondylosis (Acute) Cluneal neuropathy (Acute) Left hip pain (Acute) Fibromyalgia (Acute) Osteoarthritis (Acute) Post laminectomy syndrome (Acute) Primary osteoarthritis of left knee (Acute) Pulmonary fibrosis (Acute) Pulmonary nodules (Acute) Syncope due to orthostatic hypotension (Acute) History of external beam radiation therapy (Acute) Precordial chest pain (Acute) Atherosclerotic cardiovascular disease (Acute) Ascending aortic aneurysm (Acute) Osteoarthritis of left shoulder (Acute) Past Medical History Medical History (Updated 12/08/22 @ 12:40 by Ping Jacob) Anemia Aortic aneurysm Arthritis Back pain Cancer COPD (chronic obstructive pulmonary disease) COVID-19 Depression Difficulty swallowing Elevated cholesterol Esophageal stricture GERD (gastroesophageal reflux disease) History of chemotherapy History of epistaxis HTN (hypertension) Hx of radiation therapy Lumbar radiculitis Normocytic anemia Osteoarthritis of left shoulder Pain around PEG tube site Post laminectomy syndrome Pulmonary nodule Thyroid disease Uses feeding tube Family History Family History Father Brain cancer Mother CVD (cardiovascular disease) Maternal Aunt Diabetes Family history of problems with anesthesia: No Surgical History Surgical History H/O colonoscopy History of back surgery History of esophagogastroduodenoscopy (EGD) History of nasal surgery History of transurethral resection of prostate History of Problems with Anesthesia: No Social History Social History Household Members: Spouse Household Members Other:: 3 Housing: Apartment Do you presently have visiting nurse or other home services: Yes Alcohol intake: never Patient Tobacco Use Status: Former Tobacco user Quit Date: 40 years ago Tobacco use type: Cigarette Cigarette Packs Per Day: 3 Years Smoked: 25 Smoked in Last 30 Days: No e-Cigarette/Vaping Use: Never Used Second Hand Smoke Exposure: No Use of substances other than those prescribed or required for medical reasons: No Are you DNR?: No Advance Directives: Yes Advance Directives on File: Yes Advance Directives Date on File: 03/04/21 service: No Current occupational status: disabled Meds Allergies Allergy/AdvReac Type Severity Reaction Status Date / Time Penicillins Allergy Intermediate Rash Verified 12/08/22 12:42 aspirin [ASA] AdvReac Intermediate GI BLEED, Verified 12/08/22 12:42 Headaches Home Medications Medication Instructions Recorded Confirmed Last Taken Type umeclidinium 62.5 mcg-vilanterol 1 inh inhalation DAILY 06/21/20 12/08/22 03/17/22 History 25 mcg/actuation powdr for inhalation (Anoro Ellipta) albuterol sulfate 90 mcg/actuation 2 puff PO Q4H PRN for dyspnea 03/18/22 12/08/22 Unknown History aerosol inhaler acetaminophen 160 mg/5 mL oral 10 ml TID PRN pain 11/18/22 12/08/22 Unknown History liquid (M-PAP) duloxetine 30 mg capsule,delayed 1 cap PO DAILY 11/18/22 12/08/22 Unknown History release duloxetine 60 mg capsule,delayed 1 cap PO DAILY 11/18/22 12/08/22 Unknown History release fluticasone propionate 110 2 puff inhalation BID 11/18/22 12/08/22 Unknown History mcg/actuation HFA aerosol inhaler (Flovent HFA) fluticasone propionate 50 1 spray intranasal DAILY 11/18/22 12/08/22 Unknown History mcg/actuation nasal spray,suspension folic acid 1 mg tablet 1 tab PO DAILY 11/18/22 12/08/22 Unknown History levocetirizine 5 mg tablet 1 tab PO BEDTIME 11/18/22 12/08/22 Unknown History omeprazole 40 mg capsule,delayed 1 cap PO DAILY 11/18/22 12/08/22 Unknown History release tizanidine 4 mg tablet 1 tab PO BEDTIME 11/18/22 12/08/22 Unknown History triamcinolone acetonide 0.5 % 1 appl topical BID 11/18/22 12/08/22 Unknown History topical cream tramadol 50 mg tablet 1 tab PO TID PRN pain 11/19/22 12/08/22 Unknown History Exam Exam Date and Time: December 05, 2022 1208 Pertinent Lab Results Pertinent Lab Results: Laboratory Tests 12/03/22 12/03/22 15:34 15:34 WBC 3.1 L Hgb 9.9 L Hct 30.2 L Plt Count 407 H D Sodium 137 Potassium 4.7 D Chloride 99 Carbon Dioxide 31 H BUN 14 Creatinine 0.74 Narrative Narrative: EKG 11/2022 Vent. Rate : 089 BPM ? ? Atrial Rate : 089 BPM ?? P-R Int : 132 ms? QRS Dur : 078 ms ? ? QT Int : 378 ms ? ? ? P-R-T Axes : 050 -10 059 degrees ?? QTc Int : 459 ms ? Normal sinus rhythm Normal ECG When compared with ECG of 18-NOV-2022 11:36, ST no longer elevated in Anterior leads ECHO: normal LVEF, 55-60%; mild diastolic dysfunction; [id number] aortic valve regurgitation and mild ascending aortic dilatation. CTA: 50% narrowing focally at the origin of 2nd diagonal branch. There is moderate calcification of the LAD with some scattered mild stenosis. The total calcium score was 528. Ascending aortic size was described as 4.3 x 4.3 cm. PFT 11/2019: No obstructive vent defect. No bronchodilator response. Decreased diffusion capacity suggests emphysema. Assessment and Plan Assessment Anesthesia Assessment: Chart Reviewed Final Anesthetic Review Family History of Problems with Anesthesia: No History of Problems with Anesthesia: No Documented by User: Citlalli Pradhan MD 12/08/22 13:57 [facility] Past Medical History Medical History (Updated 12/08/22 @ 12:40 by Ping Jacob) Anemia Aortic aneurysm Arthritis Back pain Cancer COPD (chronic obstructive pulmonary disease) COVID-19 Depression Difficulty swallowing Elevated cholesterol Esophageal stricture GERD (gastroesophageal reflux disease) History of chemotherapy History of epistaxis HTN (hypertension) Hx of radiation therapy Lumbar radiculitis Normocytic anemia Osteoarthritis of left shoulder Pain around PEG tube site Post laminectomy syndrome Pulmonary nodule Thyroid disease Uses feeding tube Family History Family History Father Brain cancer Mother CVD (cardiovascular disease) Maternal Aunt Diabetes Surgical History Surgical History H/O colonoscopy History of back surgery History of esophagogastroduodenoscopy (EGD) History of nasal surgery History of transurethral resection of prostate Social History Social History Household Members: Spouse Household Members Other:: 3 Housing: Apartment Do you presently have visiting nurse or other home services: Yes Alcohol intake: never Patient Tobacco Use Status: Former Tobacco user Quit Date: 40 years ago Tobacco use type: Cigarette Cigarette Packs Per Day: 3 Years Smoked: 25 Smoked in Last 30 Days: No e-Cigarette/Vaping Use: Never Used Second Hand Smoke Exposure: No Use of substances other than those prescribed or required for medical reasons: No Are you DNR?: No Advance Directives: Yes Advance Directives on File: Yes Advance Directives Date on File: 03/04/21 service: No Current occupational status: disabled Meds Allergies Allergy/AdvReac Type Severity Reaction Status Date / Time Penicillins Allergy Intermediate Rash Verified 12/08/22 12:42 aspirin [ASA] AdvReac Intermediate GI BLEED, Verified 12/08/22 12:42 Headaches Home Medications Medication Instructions Recorded Confirmed Last Taken Type umeclidinium 62.5 mcg-vilanterol 1 inh inhalation DAILY 06/21/20 12/08/22 03/17/22 History 25 mcg/actuation powdr for inhalation (Anoro Ellipta) albuterol sulfate 90 mcg/actuation 2 puff PO Q4H PRN for dyspnea 03/18/22 12/08/22 Unknown History aerosol inhaler acetaminophen 160 mg/5 mL oral 10 ml TID PRN pain 11/18/22 12/08/22 Unknown History liquid (M-PAP) duloxetine 30 mg capsule,delayed 1 cap PO DAILY 11/18/22 12/08/22 Unknown History release duloxetine 60 mg capsule,delayed 1 cap PO DAILY 11/18/22 12/08/22 Unknown History release fluticasone propionate 110 2 puff inhalation BID 11/18/22 12/08/22 Unknown History mcg/actuation HFA aerosol inhaler (Flovent HFA) fluticasone propionate 50 1 spray intranasal DAILY 11/18/22 12/08/22 Unknown History mcg/actuation nasal spray,suspension folic acid 1 mg tablet 1 tab PO DAILY 11/18/22 12/08/22 Unknown History levocetirizine 5 mg tablet 1 tab PO BEDTIME 11/18/22 12/08/22 Unknown History omeprazole 40 mg capsule,delayed 1 cap PO DAILY 11/18/22 12/08/22 Unknown History release tizanidine 4 mg tablet 1 tab PO BEDTIME 11/18/22 12/08/22 Unknown History triamcinolone acetonide 0.5 % 1 appl topical BID 11/18/22 12/08/22 Unknown History topical cream tramadol 50 mg tablet 1 tab PO TID PRN pain 11/19/22 12/08/22 Unknown History Exam Airway Mallampati Class: IV (edentulous) TM Dist: >3cm Neck ROM: Full Heart: rrr Lungs: cta Assessment and Plan Assessment Anesthesia Assessment: Anesthesia Plan Discussed and Chart Reviewed Final Anesthetic Review NPO: Yes ASA Class: III Final Preanesthetic Review: No Changes in Pt Med Stat, Meds/Allgs Chart Reviewed and Consent Obtained/Reviewed Patient Risk: Intermediate Procedure Risk: Intermediate Anesthetic Plan Anesthetic Plan: MAC: (last EGD well with just propofol, spoke to previous anthesiologist regarding oatient) Disposition: Standard PACU
[2022-12-08 12:30] VITALS: BMI 21.4
[2022-12-08 12:55] VITALS: BP 125/61; PULSE 67; RESP 16; TEMP 36.6; O2SAT 97
[2022-12-08] MEDS: Lactated Ringers 1,000 ML 100 ML IVCONT (12:57)
--- NOTE | 2022-12-08 13:50 | MHC.SHP ---
Pre-Procedural Eval Section A Date of Service: 12/08/22 The patient is an INPATIENT: No Changes since office visit: Yes Patient answered all questions; No Cold of Flu in the past 2 weeks, No New Medical Problems and No Changes in Medication The History & Physical has been completed within 30 days and I have reviewed it.: Yes Section B Chief Complaint: Esophageal obstruction,anemia Allergies: Allergies Allergy/AdvReac Type Severity Reaction Status Date / Time Penicillins Allergy Intermediate Rash Verified 12/08/22 12:42 aspirin [ASA] AdvReac Intermediate GI BLEED, Verified 12/08/22 12:42 Headaches Plan I have reviewed the history and physical and performed a pertinent physical examination on my patient. No changes have occurred unless specified. Time Spent With Patient Time: Total time managing care of this patient today ____ minutes.
--- NOTE | 2022-12-08 14:00 | W.PM.OPN ---
Operative Note Operative Note Date of Service: 12/08/22 Narrative: FLEXIBLE TRANSORAL ESOPHAGOSCOPY WITH BALLOON DILATION OF PROXIMAL ESOPHAGEAL STRICTURE Pre-op diagnosis: Dysphagia, esophageal stricture Post-op diagnosis: Same Endoscopist:? Jonah Kim MD Anesthesia:?MAC Consent: Indications for the procedure and potential complications of bleeding, perforation, reaction to medications and missed diagnosis were discussed with the patient and informed consent was obtained. Instrument: Olympus GIF H 190 mid size upper endoscope Monitoring: Vital signs and clinical assessment, continuous EKG monitoring, Pulse oximetry, Carbon Dioxide monitoring and blood pressure monitoring were done throughout the procedure. Procedure: The patient was placed in the left lateral decubitis position and pre-procedure medications were administered and a bite block was placed. The endoscope was inserted into the mouth and advanced under direct vision to the posterior pharynx. Balloon dilation of esophageal stricture was performed and upper endoscope was withdrawn; Findings and interventions are described below. Findings: Larynx: Normal Esophagus: Tight stricture at 25 cms.? Esophageal balloon dilation was performed with 10 and 11 mm and 11.5 mm CRE balloon x 60 sec at each level.? Unable to pass the midsize upper endoscope through the stricture . Procedure was discontinued since pt's IV infilterated and because of tenuous respiratory status. Stomach:?Not examined Duodenum:?Not examined Intervention: Balloon dilation of proximal esophageal stricture to 11.5 mm (unable to expand the balloon to 12 mm due to excessive resistance) Impression and Post Procedure Diagnosis: Tight stricture at 25 cms.? Esophageal balloon dilation was performed with 10 and 11 mm and 11.5 mm CRE balloon x 60 sec at each level.? Unable to pass the midsize upper endoscope through the stricture . Procedure was discontinued since pt's IV infilterated and because of tenuous respiratory status. Plan: Repeat EGD with Dr Payan in 2-3 months with Kenalog injection and balloon dilation of esophageal stricture. (Dr Velazco and Dr Moreno advised scheduling this pt in the OR with MAC due to advanced COPD) Procedure to be scheduled in first 3 or 4 slots of the day. Above findings were reviewed with the patient.
[2022-12-08 14:33] VITALS: BP 121/66; PULSE 79; RESP 16; TEMP 36.6; O2SAT 92
[2022-12-08 14:46] VITALS: BP 119/63; PULSE 68; RESP 16; O2SAT 100
[2022-12-08 15:00] VITALS: BP 113/63; PULSE 67; RESP 16; TEMP 36.6; O2SAT 99
== END 2022-12-08 15:45 | disposition home or self-care (01) ==
PROVIDERS: PCP Internal Medicine; Visit Provider Internal Medicine Gastroenterology
PROC: (CPT 43220; principal; 2022-12-08 13:45)
DX: K22.2 Esophageal obstruction (principal); R13.10 Dysphagia, unspecified; D64.9 Anemia, unspecified; J44.9 Chronic obstructive pulmonary disease, unspecified; Z85.21 Personal history of malignant neoplasm of larynx; Z92.21 Personal history of antineoplastic chemotherapy; Z92.3 Personal history of irradiation; Z93.1 Gastrostomy status; I71.21 Aneurysm of the ascending aorta, without rupture; I25.10 Atherosclerotic heart disease of native coronary artery without angina pectoris; Z88.0 Allergy status to penicillin; Z88.8 Allergy status to other drugs, medicaments and biological substances; Z87.891 Personal history of nicotine dependence; Z86.16 Personal history of COVID-19
CPT/HCPCS: 43220; C1726

== ENCOUNTER → 2022-12-09 09:35 | Outpatient (BNV) | payer OTHER, SELFPAY | PROVIDERS: PCP Internal Medicine; Visit Provider Internal Medicine Medical Oncology | DX: D64.9 Anemia, unspecified (principal) | CPT/HCPCS: 99204; 99213; 99214 ==

== ENCOUNTER 2022-12-24 12:54 | Outpatient (REF) | payer OTHER, SELFPAY | END 2022-12-24 12:55 | disposition home or self-care (01) | LOC: HO.MDS 12:54 | PROVIDERS: Visit Provider Internal Medicine Medical Oncology | DX: D50.9 Iron deficiency anemia, unspecified (principal) | CPT/HCPCS: 96365; J1756 ==

== ENCOUNTER 2022-12-31 12:12 | Outpatient (REF) | payer OTHER, SELFPAY | END 2022-12-31 12:13 | disposition home or self-care (01) | LOC: HO.MDS 12:12 | PROVIDERS: Visit Provider Internal Medicine Medical Oncology | DX: D50.9 Iron deficiency anemia, unspecified (principal) | CPT/HCPCS: 96365; J1756 ==

== ENCOUNTER 2023-01-07 13:20 | Outpatient (REF) | payer OTHER, SELFPAY | END 2023-01-07 13:21 | disposition home or self-care (01) | LOC: HO.MDS 13:20 | PROVIDERS: Visit Provider Internal Medicine Medical Oncology | DX: D50.9 Iron deficiency anemia, unspecified (principal) | CPT/HCPCS: 96365; J1756 ==

== ENCOUNTER 2023-01-13 12:46 | Outpatient (REF) | payer OTHER, SELFPAY | END 2023-01-13 12:47 | disposition home or self-care (01) | LOC: HO.MDS 12:46 | PROVIDERS: Visit Provider Internal Medicine Medical Oncology | DX: D50.9 Iron deficiency anemia, unspecified (principal) | CPT/HCPCS: 20610; 96365; 99212; J1756 ==

== ENCOUNTER 2023-01-19 08:14 | Outpatient (REF) | payer OTHER, SELFPAY | END 2023-01-19 08:15 | disposition home or self-care (01) | LOC: HO.LNP 08:14 | PROVIDERS: PCP Internal Medicine; Referring Provider Internal Medicine; Visit Provider Surgery | DX: R22.1 Localized swelling, mass and lump, neck (principal) | CPT/HCPCS: 10021; 88305; 88312; 99202 ==

== ENCOUNTER 2023-01-19 09:03 | Outpatient (REF) | payer OTHER, SELFPAY ==
[2023-01-19 09:26] LABS: MANUAL DIFF FLAG NO
[2023-01-19 09:34] LABS: Basophils Percent Auto 0.5 % (0-2); Eosinophils Absolute Auto 0.1 X10*3/uL (0.0-0.4); Eosinophils Percent Auto 1.5 % (0-4); Hematocrit 26.8 % (42.0-52.0); Hemoglobin 8.4 g/dl (14.0-18.0); Imm Gran Abs Auto 0.02 X10*3/uL (0.00-0.03); Imm Gran Pct Auto 0.3 % (0.0-0.4); Lymphocytes Absolute Auto 0.6 X10*3/uL (1.2-4.9); Lymphocytes Percent Auto 9.7 % (20-40); Mean Corpuscular HGB Conc 31.3 g/dl (31.0-36.0); Mean Corpuscular Hemoglobin 31.9 pg (27.0-33.0); Mean Corpuscular Volume 101.9 fL (80.0-98.0); Mean Platelet Volume 9.8 fL (9.4-12.4); Monocytes Absolute Auto 0.9 X10*3/uL (0.1-1.2); Monocytes Percent Auto 14.2 % (2-11); Neutrophils Absolute Auto 4.4 x10*3/uL (2.0-8.3); Neutrophils Percent Auto 73.8 % (45-73); Platelet Count 275 X10*3/uL (160-400); Red Blood Count 2.63 X10*6/uL (4.60-5.80); Red Cell Distribution Width 18.9 % (11.0-16.0)
[2023-01-19 10:02] LABS: Alanine Aminotransferase 25 U/L (0-40); Alkaline Phosphatase 82 U/L (39-117); Anion Gap 10 (12-20); Aspartate Amino Transferase 30 U/L (5-37); Bilirubin Total 0.3 mg/dL (0.0-1.0); Blood Urea Nitrogen 12 mg/dL (9-16); Calcium 9.5 mg/dL (8.4-10.2); Carbon Dioxide 33 mmol/L (22-29); Chloride 103 mmol/L (96-108); Estimated Glomerular Filt Rate > 60; Glucose Random 105 mg/dL (60-115); Potassium 4.3 mmol/L (3.3-5.1); Sodium 142 mmol/L (135-145); Total Protein 7.1 g/dL (6.5-8.0)
[2023-01-19 10:17] LABS: Ferritin 441 ng/mL (20-250)
[2023-01-19 10:35] LABS: Ferritin 447 ng/mL (20-250); Vitamin B12 855 pg/mL (200-900)
== END 2023-01-19 09:04 | disposition home or self-care (01) ==
LOC: HO.LAB 09:03
PROVIDERS: Internal Medicine Medical Oncology; Absent Provider Internal Medicine; PCP Internal Medicine; Visit Provider Internal Medicine Medical Oncology
DX: D50.8 Other iron deficiency anemias (principal); E03.9 Hypothyroidism, unspecified; Z93.1 Gastrostomy status
CPT/HCPCS: 36415; 80053; 82607; 82728; 84443; 85025

== ENCOUNTER 2023-01-21 12:44 | Outpatient (REF) | payer OTHER, SELFPAY | END 2023-01-21 12:45 | disposition home or self-care (01) | LOC: HO.MDS 12:44 | PROVIDERS: Visit Provider Internal Medicine Medical Oncology | DX: D50.9 Iron deficiency anemia, unspecified (principal) | CPT/HCPCS: 96365; J1756 ==

== ENCOUNTER 2023-01-21 14:06 | Outpatient (REF) | payer OTHER, SELFPAY ==
--- NOTE | ~2023-01-21 | CT_ITS ---
EXAMINATION: CT SOFT TISSUE NECK WITH CONTRAST CLINICAL INFORMATION: History of head and neck cancer. Treatment with radiation and chemotherapy. Patient now presents with an enlarging left cervical mass highly suspicious for current disease. COMPARISON: CT scan of the cervical spine 07/10/2022. MRI scan of the neck 11/22/2021. CT scan of the neck 03/04/2021. TECHNIQUE: A few noncontrast images with a BB marker in place were obtained. Following the intravenous administration of 60 mL of Omnipaque 350 intravenous contrast, helical imaging was performed in the axial plane with generation of coronal and sagittal reformatted images. This CT examination was performed using dose optimization techniques as appropriate, variously including the following: *Automated exposure control *Adjustment of mA and/or kV according to patient size (this includes techniques or standardized protocols for targeted exams where dose is matched to indication/reason for exam; i.e. extremities or head) *Use of iterative reconstruction technique DLP: 247 mGy-cm FINDINGS: The BB marker overlies an area of soft tissue thickening extending from the angle of the left mandible posteriorly, without a discrete mass. The soft tissue fullness appears new compared to prior imaging. There has been interval increase in the size of a level IA lymph node, which now measures 1.2 cm, increased from 0.9 cm on the remote prior CT scan. It is not well demonstrated on the interim studies. There is been no interval change in the small subcutaneous nodule over the left masseter muscle which measures 1.3 x 0.8 cm, and is well-defined. The parotid and submandibular glands are fatty and atrophic bilaterally. There is increased attenuation in the submandibular fat particularly on the left which may be treatment related. The epiglottis is moderately thickened, unchanged. No contour abnormality or pathologic enhancement is seen within the oral cavity or pharyngeal mucosal space. The laryngeal structures are normal. Parapharyngeal fat is preserved. There are atheromatous calcifications at the left carotid bifurcation. The right carotid bifurcation appears patent. The cervical internal carotid arteries bilaterally are tortuous but patent extending cephalad. There has been interval increase in some atheromatous calcification of the distal left cervical internal carotid artery. No retropharyngeal fluid collection is seen. The thyroid gland is normal. The study redemonstrates a few small paratracheal and precarinal lymph nodes which are not significantly changed compared to the prior neck CT scan. The study redemonstrates fibrotic change at the right lung apex, which may be therapy related. There has been marked interval decrease in the opacification is demonstrated in the right upper lobe on the CT scan of the cervical spine. Some residual opacification is seen along the right major fissure. The mastoid air cells and visualized portions of the paranasal sinuses are well-aerated. There are degenerative changes of the right temporomandibular joint. The patient is edentulous in the mandible and the maxilla. There is a degenerative anterolisthesis of C4 on C5 and there is multilevel spondylosis and facet arthropathy. There are no acute intracranial findings. CT/CT soft tissue neck w IV con IMPRESSION: 1. The study demonstrates an area of soft tissue thickening extending from the angle of the left mandible posteriorly, without a discrete mass, which appears to have developed compared to prior imaging. There has been interval increase in the size of a level IA lymph node compared to prior imaging. These findings could be further evaluated with PET CT scan. 2. The study redemonstrates a small subcutaneous nodule over the left masseter muscle, unchanged. 3. The study redemonstrates fibrotic changes at the right lung apex, which may be therapy related. There has been marked interval decrease in the opacification in the right upper lobe compared to prior imaging.
== END 2023-01-21 14:07 | disposition home or self-care (01) ==
LOC: HO.CT 14:06
PROVIDERS: PCP Internal Medicine; Visit Provider Surgery
DX: R22.1 Localized swelling, mass and lump, neck (principal)
CPT/HCPCS: 70491

== ENCOUNTER → 2023-01-26 09:31 | Outpatient (BNVA) | payer OTHER, SELFPAY | PROVIDERS: PCP Internal Medicine; Visit Provider Surgery | DX: R22.1 Localized swelling, mass and lump, neck (principal); Z92.3 Personal history of irradiation; Z98.890 Other specified postprocedural states | CPT/HCPCS: 99212 ==

== ENCOUNTER 2023-01-28 12:53 | Outpatient (REF) | payer OTHER, SELFPAY | END 2023-01-28 12:54 | disposition home or self-care (01) | LOC: HO.MDS 12:53 | PROVIDERS: Visit Provider Internal Medicine Medical Oncology | DX: D50.9 Iron deficiency anemia, unspecified (principal) | CPT/HCPCS: 96365; J1756 ==

== ENCOUNTER 2023-02-02 15:19 | Inpatient (IN) | payer OTHER, SELFPAY ==
[2023-02-02] VITALS (7 sets, daily range): BP systolic 80–121; BP diastolic 50–64; PULSE 60–97; RESP 16–19; TEMP 36–36.8; O2SAT 93–96; BMI 20.7
--- NOTE | ~2023-02-02 | XR_ITS ---
EXAMINATION: CHEST RADIOGRAPH, KUB CLINICAL INFORMATION: G-tube placement and leukocytosis COMPARISON: Chest radiograph 11/25/2022 TECHNIQUE: Single view chest, single view abdomen FINDINGS: There are new large areas of consolidation in the chest in both upper lobes and in the right perihilar region. Only minimal patchy airspace opacity was present previously no pleural effusions. Heart size normal. No evidence of CHF. Contrast media was injected and the patient's G-tube which is in the gastric antrum without evidence of leakage. No evidence of bowel obstruction. Posterior fixation noted at L4-L5. There is a 7 mm rounded intra-articular articular osseous body in the left shoulder. XR/XR chest 1V IMPRESSION: 1. New areas of consolidation in the lungs as described above. 2. G-tube is in good position.
--- NOTE | ~2023-02-02 | XR_ITS ---
EXAMINATION: CHEST RADIOGRAPH, KUB CLINICAL INFORMATION: G-tube placement and leukocytosis COMPARISON: Chest radiograph 11/25/2022 TECHNIQUE: Single view chest, single view abdomen FINDINGS: There are new large areas of consolidation in the chest in both upper lobes and in the right perihilar region. Only minimal patchy airspace opacity was present previously no pleural effusions. Heart size normal. No evidence of CHF. Contrast media was injected and the patient's G-tube which is in the gastric antrum without evidence of leakage. No evidence of bowel obstruction. Posterior fixation noted at L4-L5. There is a 7 mm rounded intra-articular articular osseous body in the left shoulder. XR/XR KUB IMPRESSION: 1. New areas of consolidation in the lungs as described above. 2. G-tube is in good position.
--- NOTE | ~2023-02-02 | CT_ITS ---
CT SOFT TISSUE NECK WITH CONTRAST CLINICAL INFORMATION: Left cervical mass. Question abscess. Biopsy. COMPARISON: Neck CT 01/21/2023. TECHNIQUE: Following the intravenous administration of 100 mL of Omnipaque 350 intravenous contrast, helical imaging was performed in the axial plane with generation of coronal and sagittal reformatted images. This CT examination was performed using dose optimization techniques as appropriate, variously including the following: *Automated exposure control *Adjustment of mA and/or kV according to patient size (this includes techniques or standardized protocols for targeted exams where dose is matched to indication/reason for exam; i.e. extremities or head) *Use of iterative reconstruction technique FINDINGS: Previously seen stranding and soft tissue thickening along the periphery of the left submandibular gland as well as thickening of the left platysma muscle are mildly improved when compared to the 01/21/2023 CT. There is decreased reticulation within the adjacent subcutaneous fat. No peripherally enhancing fluid collections. There is a stable level 1A lymph node measuring up to 1.1 cm. As discussed on the prior study, a PET/CT could be obtained for further assessment given the patient's known history of malignancy. Previously described nodules superficial to the left masseter muscle reflect accessory parotid tissue without fatty replacement. Stable fatty replacement of the parotid glands and the submandibular glands with stable heterogeneous soft tissue density within portions of the left submandibular gland that remains nonspecific. There is soft tissue thickening within the carotid space bilaterally and within the retropharyngeal space that is most likely posttreatment related and that remains stable. The thyroid gland is unremarkable. Atherosclerotic calcification throughout the aortic arch and involving the left carotid bifurcation. Cervical arterial vasculature remains patent. Orbital soft tissues are unremarkable. Laryngeal structures are symmetric and normal. 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 There is new extensive consolidation within the lungs bilaterally when compared to the previous neck CT concerning for multifocal pneumonia. Partially imaged enlarged mediastinal and hilar lymph nodes, possibly reactive given the pulmonary parenchymal findings. CT/CT soft tissue neck w IV con IMPRESSION: - There is new extensive consolidation within the lungs bilaterally when compared to the previous neck CT concerning for multifocal pneumonia. - Previously seen stranding and soft tissue thickening along the periphery of the left submandibular gland as well as thickening of the left platysma muscle are mildly improved when compared to the 01/21/2023 CT. There is decreased reticulation within the adjacent subcutaneous fat. No peripherally enhancing fluid collections. There is a stable level 1A lymph node measuring up to 1.1 cm. As discussed on the prior study, a PET/CT could be obtained for further assessment given the patient's known history of malignancy. - Stable fatty replacement of the parotid glands and the submandibular glands with stable heterogeneous soft tissue density within portions of the left submandibular gland that remains nonspecific. - There is soft tissue thickening within the carotid space bilaterally and within the retropharyngeal space that is most likely posttreatment related and that remains stable.
--- NOTE | 2023-02-02 15:30 | ECG_ITS ---
Test Reason : CP Blood Pressure : / mmHG Vent. Rate : 095 BPM Atrial Rate : 095 BPM P-R Int : 122 ms QRS Dur : 072 ms QT Int : 358 ms P-R-T Axes : 073 050 075 degrees QTc Int : 449 ms Normal sinus rhythm Normal ECG When compared with ECG of 20-NOV-2022 14:12, Questionable change in QRS axis T wave amplitude has increased in Inferior leads T wave amplitude has increased in Anterior leads Referred By: Generic ED Physician Electronically Signed By:VANDA MALIK MD
--- NOTE | 2023-02-02 15:36 | PC.NURSE ---
Alert and oriented. States he is having chest and throat pain. states pain started 6 months ago but became worse yesterday. Family reported to ems that g tube is leaking and that patient turned off fluids that were running this am. G tube leaking at insertion site . Skin intact with no redness or s/s of infection surrounding g tube. Denies SI.
--- NOTE | 2023-02-02 15:44 | ED.CHESTPAIN ---
HPI - Chest Pain General Chief Complaint: Chest Pain Stated Complaint: g tube problems Time Seen by Provider: 02/02/23 15:35 Source: patient and EMS Mode of arrival: EMS Limitations: other (Difficult to understand, no dentures) History of Present Illness HPI narrative: Patient comes to emergency room via EMS. Since that the patient's G-tube has been leaking. Patient complaining of chest pain for 6 months, states that yesterday got worse. Related Data Home Medications Medication Instructions Recorded Confirmed umeclidinium 62.5 mcg-vilanterol 1 inh inhalation DAILY 06/21/20 02/02/23 25 mcg/actuation powdr for inhalation (Anoro Ellipta) albuterol sulfate 90 mcg/actuation 2 puff PO Q4H PRN for dyspnea 03/18/22 02/02/23 aerosol inhaler acetaminophen 160 mg/5 mL oral 10 ml feeding tube TID PRN pain 11/18/22 02/02/23 liquid (M-PAP) duloxetine 30 mg capsule,delayed 1 cap PO DAILY 11/18/22 02/02/23 release duloxetine 60 mg capsule,delayed 1 cap PO DAILY 11/18/22 02/02/23 release fluticasone propionate 110 2 puff inhalation BID 11/18/22 02/02/23 mcg/actuation HFA aerosol inhaler (Flovent HFA) fluticasone propionate 50 1 spray intranasal DAILY 11/18/22 02/02/23 mcg/actuation nasal spray,suspension levocetirizine 5 mg tablet 1 tab PO BEDTIME 11/18/22 02/02/23 omeprazole 40 mg capsule,delayed 1 cap PO DAILY 11/18/22 02/02/23 release tizanidine 4 mg tablet 1 tab PO BEDTIME 11/18/22 02/02/23 triamcinolone acetonide 0.5 % 1 appl topical BID 11/18/22 02/02/23 topical cream ferrous sulfate 325 mg (65 mg 325 mg PO DAILY 01/13/23 02/02/23 iron) tablet,delayed release tramadol 50 mg tablet 50 mg PO TID PRN Pain, Moderate 02/02/23 02/02/23 (Pain Scale 4-6 Previous Rx's Medication Instructions Recorded cyanocobalamin (vitamin B-12) 1,000 mcg feeding tube DAILY #30 07/18/22 1,000 mcg tablet (Vitamin B-12) tabs gabapentin 400 mg capsule 400 mg feeding tube TID #30 caps 07/18/22 levothyroxine 75 mcg tablet 75 mcg feeding tube DAILY@0600 #30 07/18/22 tabs multivitamin 1 tab feeding tube DAILY #30 tabs 07/18/22 amlodipine 2.5 mg tablet 2.5 mg PO DAILY #30 tabs 11/24/22 cane #1 ea 01/13/23 Allergies Allergy/AdvReac Type Severity Reaction Status Date / Time Penicillins Allergy Intermediate Rash Verified 01/19/23 08:27 aspirin [ASA] AdvReac Intermediate GI BLEED, Verified 01/19/23 08:27 Headaches Review of Systems Review of Systems: Constitutional : No Weight loss, No Fever, No Chills, No Night Sweats, No Fatigue, No Malaise ENT/Mouth : No Hearing loss, No Ear Pain, No Nasal Congestion, No Sinus Pain, No Hoarseness, No sore throat, No Rhinorrhea, No Swallowing Difficulty Eyes: No Eye Pain, No Swelling, No Redness, No Foreign Body, No Discharge, No Vision Changes Cardiovascular : Complaining of chronic Chest Pain, No SOB, No Dyspnea on Exertion, No Orthopnea, No Edema, No Palpitations Respiratory : No Cough, No Sputum, No Wheezing, No Smoke Exposure, No Dyspnea Gastrointestinal : Complaining of G-tube leaking, No Nausea, No Vomiting, No Diarrhea, No Constipation, No abdominal Pain, No Hematochezia, No Melena Genitourinary : no irregular bleeding, No Dysuria, No Urinary Frequency, No Hematuria, No Urinary Incontinence, No Urgency, No Flank Pain, No Urinary Flow Changes, No Hesitancy Musculoskeletal : No joint pain, No Myalgias, No Joint Swelling Skin : No Skin Lesions, No rash Neuro : No Weakness, No Numbness, No Paresthesias, No Loss of Consciousness, No Dizziness, No Headache Psych : No Anxiety/Panic, No Depression, No SI/HI/AH/VH, No Social Issues, Heme/Lymph: No Bruising, No Bleeding,No Lymphadenopathy Endocrine : No Polyuria, No Polydipsia, No Temperature Intolerance PMFSH Past Medical History Medical History Anemia Aortic aneurysm Arthritis Back pain Cancer COPD (chronic obstructive pulmonary disease) COVID-19 Depression Difficulty swallowing Elevated cholesterol Esophageal stricture GERD (gastroesophageal reflux disease) History of chemotherapy History of epistaxis HTN (hypertension) Hx of radiation therapy Lumbar radiculitis Normocytic anemia Osteoarthritis of left shoulder Pain around PEG tube site Post laminectomy syndrome Pulmonary nodule Thyroid disease Uses feeding tube Surgical History H/O colonoscopy History of back surgery History of esophagogastroduodenoscopy (EGD) History of nasal surgery History of transurethral resection of prostate Family History Family History Father Brain cancer Mother CVD (cardiovascular disease) Maternal Aunt Diabetes Social History Social History Household Members: Spouse Household Members Other:: 3 Housing: Apartment Do you presently have visiting nurse or other home services: Yes Alcohol intake: former Patient Tobacco Use Status: Former Tobacco user Quit Date: 40 years ago Tobacco use type: Cigarette Cigarette Packs Per Day: 3 Years Smoked: 25 Smoked in Last 30 Days: No e-Cigarette/Vaping Use: Never Used Second Hand Smoke Exposure: No Use of substances other than those prescribed or required for medical reasons: No Advance Directives: Yes Advance Directives on File: Yes Advance Directives Date on File: 03/04/21 service: No Current occupational status: disabled Physical Exam Vital Signs: Vital Signs: Last Vital Signs Temp 98.1 F 02/02/23 15:32 Pulse 94 02/02/23 17:12 Resp 19 02/02/23 17:12 BP 93/50 L 02/02/23 17:12 Pulse Ox 94 02/02/23 16:14 O2 Del Method Room Air 02/02/23 16:14 BMI result Body Mass Index 20.7 Const: Other: Appearance: Alert. No acute distress. Eyes: Pupils equal, round and reactive to light. ENT: Pharynx normal. Dry oral mucosa Neck: Normal inspection. Neck supple. No lymph nodes noted. No crepitus CVS: Normal heart rate and rhythm. Pulses normal. Normal S1 and S2 Respiratory: No respiratory distress. Breath sounds normal. No Wheezing. No rales Abdomen: Soft and nontender. No rigidity. No distention. G-tube leaking, 1 of the rubber stoppers at the distal end of the 2 is broken Skin: Skin warm and dry. Normal skin color. Normal skin turgor. Extremities: No lower extremity edema. No Lacerations. No Rash Neuro: Oriented X 3. No motor deficit. No sensory deficit. Moving all extremities. No slurred speech. CN 2 through 12 grossly intact Psych: calm, cooperative, normal affect Course Course Course Narrative: -patient needs a new G-tube Medications Administered Generic Name Dose Route Start Last Admin Trade Name Yovanny PRN Reason Stop Dose Admin Sodium Chloride 1,000 mls @ 999 mls/hr 02/02/23 18:12 02/02/23 18:19 Ns IVCONT 02/02/23 19:12 999 mls/hr .Q1H1M ONE Administration Azithromycin 500 mg/ Sodium 250 mls @ 125 mls/hr 02/02/23 18:15 02/02/23 18:31 Chloride IV 02/02/23 20:14 125 mls/hr ONCE ONE Administration Medical Decision Making Medical Decision Making [facility] Narrative: -patient receiving any fluids, patient has dry oral mucosa -my interpretation of EKG: Sinus rhythm, heart rate 95, no ST segment depression elevation, no T-wave inversion, QTC 449 -G-tube was replaced with a new tube, 20 Turkish, no complications. My interpretation of KUB with contrast: G-tube is in place -my interpretation of chest x-ray: Right middle lobe pneumonia and left upper lobe pneumonia, radiology report pending. Patient will be started empirically on antibiotics. No fever, blood pressure the episodes of hypotension, sepsis not suspected. -patient receiving IV fluids, azithromycin and cefepime, received 2L NS -we attempted to ambulate the patient. However, patient is too weak to sit up, he needs 2 people assist and cannot get up due to weakness. At baseline, patient is able to walk with a walker. -I discussed the patient with Dr. Lofton, patient being admitted Admission/Observation Consideration of admission/observation: Escalation of care including admission/observation considered Consult Healthcare Provider Management of the patient was discussed with: Hospitalist Lab Data [facility] Lab Attestation statement: I reviewed the patient's lab results. 02/02/23 15:52 02/02/23 15:52 Labs: Lab Results 02/02/23 02/02/23 02/02/23 Range/Units 15:52 15:52 15:52 WBC 28.8 H (4.8-10.8) X10*3/uL RBC 2.34 L (4.60-5.80) X10*6/uL Hgb 7.6 L (14.0-18.0) g/dl Hct 22.5 L (42.0-52.0) % MCV 96.2 (80.0-98.0) fL MCH 32.5 (27.0-33.0) pg MCHC 33.8 (31.0-36.0) g/dl RDW 16.8 H (11.0-16.0) % Plt Count 452 H D (160-400) X10*3/uL MPV 10.7 (9.4-12.4) fL Immature Gran % (Auto) 2.4 H (0.0-0.4) % Neut % (Auto) 90.1 H (45-73) % Lymph % (Auto) 2.1 L (20-40) % [place] % (Auto) 5.1 (2-11) % Eos % (Auto) 0.1 (0-4) % Baso % (Auto) 0.2 (0-2) % Lymph # (Auto) 0.6 L (1.2-4.9) X10*3/uL [place] # (Auto) 1.5 H (0.1-1.2) X10*3/uL Eos # (Auto) 0.0 (0.0-0.4) X10*3/uL Baso # (Auto) 0.1 (0.0-0.2) X10*3/uL Abs Immat Gran (auto) 0.68 H (0.00-0.03) X10*3/uL Absolute Neuts (auto) 25.9 H (2.0-8.3) x10*3/uL Absolute Nucleated RBC 0.050 H (0.0-0.012) X10*3/uL Nucleated RBC % (auto) 0.2 (0.0-0.2) /100WBC Smear Tech's Comments VERIFIED Sodium 137 (135-145) mmol/L Potassium 3.8 (3.3-5.1) mmol/L Chloride 102 (96-108) mmol/L Carbon Dioxide 24 (22-29) mmol/L Anion Gap 15 (12-20) BUN 36 H (9-16) mg/dL Creatinine 1.13 (0.5-1.4) mg/dL Estim Creat Clear Calc 50.2 Estimated GFR > 60 Random Glucose 117 H (60-115) mg/dL Lactic Acid (0.5-2.0) mmol/L Calcium 8.2 L D (8.4-10.2) mg/dL Troponin I High Sens 3.9 D (<3.5-35.0) ng/L 02/02/ Range/Units 17:17 WBC (4.8-10.8) X10*3/uL RBC (4.60-5.80) X10*6/uL Hgb (14.0-18.0) g/dl Hct (42.0-52.0) % MCV (80.0-98.0) fL MCH (27.0-33.0) pg MCHC (31.0-36.0) g/dl RDW (11.0-16.0) % Plt Count (160-400) X10*3/uL MPV (9.4-12.4) fL Immature Gran % (Auto) (0.0-0.4) % Neut % (Auto) (45-73) % Lymph % (Auto) (20-40) % [place] % (Auto) (2-11) % Eos % (Auto) (0-4) % Baso % (Auto) (0-2) % Lymph # (Auto) (1.2-4.9) X10*3/uL [place] # (Auto) (0.1-1.2) X10*3/uL Eos # (Auto) (0.0-0.4) X10*3/uL Baso # (Auto) (0.0-0.2) X10*3/uL Abs Immat Gran (auto) (0.00-0.03) X10*3/uL Absolute Neuts (auto) (2.0-8.3) x10*3/uL Absolute Nucleated RBC (0.0-0.012) X10*3/uL Nucleated RBC % (auto) (0.0-0.2) /100WBC Smear Tech's Comments Sodium (135-145) mmol/L Potassium (3.3-5.1) mmol/L Chloride (96-108) mmol/L Carbon Dioxide (22-29) mmol/L Anion Gap (12-20) BUN (9-16) mg/dL Creatinine (0.5-1.4) mg/dL Estim Creat Clear Calc Estimated GFR Random Glucose (60-115) mg/dL Lactic Acid 0.8 (0.5-2.0) mmol/L Calcium (8.4-10.2) mg/dL Troponin I High Sens (<3.5-35.0) ng/L Radiology Impression Discussion of test interpretation with radiology: I have reviewed the radiologist's reading. Radiologist Impression: FINDINGS: There are new large areas of consolidation in the chest in both upper lobes and in the right perihilar region. Only minimal patchy airspace opacity was present previously no pleural effusions. Heart size normal. No evidence of CHF. Contrast media was injected and the patient's G-tube which is in the gastric antrum without evidence of leakage. No evidence of bowel obstruction. Posterior fixation noted at L4-L5. There is a 7 mm rounded intra-articular articular osseous body in the left shoulder. XR/XR KUB IMPRESSION: 1.? New areas of consolidation in the lungs as described above. 2.? G-tube is in good position Critical Care Time Critical Care Time Critical Care Time: Yes Total Critical Care Time: 60 Attestation: I have personally provided critical care time. Time includes review of lab data, radiology results, discussion with consultants, and monitoring for potential decompensation. Intervention performed as documented. Discharge Plan Discharge Clinical Impression: Gastrostomy tube dysfunction, Pneumonia, Weakness Patient Disposition: Admitted As Inpatient
[2023-02-02 16:04] LABS: Basophils Absolute Auto 0.1 X10*3/uL (0.0-0.2); Basophils Percent Auto 0.2 % (0-2); Eosinophils Percent Auto 0.1 % (0-4); Hematocrit 22.5 % (42.0-52.0); Hemoglobin 7.6 g/dl (14.0-18.0); Imm Gran Abs Auto 0.68 X10*3/uL (0.00-0.03); Imm Gran Pct Auto 2.4 % (0.0-0.4); Lymphocytes Absolute Auto 0.6 X10*3/uL (1.2-4.9); Lymphocytes Percent Auto 2.1 % (20-40); MANUAL DIFF FLAG SCAN; Mean Corpuscular HGB Conc 33.8 g/dl (31.0-36.0); Mean Corpuscular Hemoglobin 32.5 pg (27.0-33.0); Mean Corpuscular Volume 96.2 fL (80.0-98.0); Mean Platelet Volume 10.7 fL (9.4-12.4); Monocytes Absolute Auto 1.5 X10*3/uL (0.1-1.2); Monocytes Percent Auto 5.1 % (2-11); NRBC Pct Auto 0.2 /100WBC (0.0-0.2); Neutrophils Absolute Auto 25.9 x10*3/uL (2.0-8.3); Neutrophils Percent Auto 90.1 % (45-73); Platelet Count 452 X10*3/uL (160-400); Red Blood Count 2.34 X10*6/uL (4.60-5.80); Red Cell Distribution Width 16.8 % (11.0-16.0); SCAN SMEAR FLAG 1; White Blood Count 28.8 X10*3/uL (4.8-10.8)
[2023-02-02 16:22] LABS: Troponin-I High Sensitivity 3.9 ng/L (<3.5-35.0)
[2023-02-02 16:28] LABS: SLIDE REVIEW VERIFIED
[2023-02-02 16:30] LABS: Anion Gap 15 (12-20); Blood Urea Nitrogen 36 mg/dL (9-16); Calcium 8.2 mg/dL (8.4-10.2); Carbon Dioxide 24 mmol/L (22-29); Chloride 102 mmol/L (96-108); Creatinine Clr Calc Pharmacy 50.2; Estimated Glomerular Filt Rate > 60; Glucose Random 117 mg/dL (60-115); Potassium 3.8 mmol/L (3.3-5.1); Sodium 137 mmol/L (135-145)
[2023-02-02 17:40] LABS: Lactic Acid 0.8 mmol/L (0.5-2.0)
[2023-02-02] MEDS: 0.9 % Sodium Chloride 1,000 ML 999 ML IVCONT ×2 (18:19→20:48)
[2023-02-02 18:20] LABS: Appearance Urine Clear; Color Urine Dark Yellow; Glucose Urine UA Negative (Negative); Leukocyte Esterase Urine Trace (Negative); Nitrite Urine Negative (Negative); PH 5.5 (5.0-9.0); UMIC TRIGGER UACC YES; Urine Blood Negative (Negative); Urine Ketones Negative (Negative); Urine Protein 30 (1+) mg/dL (Neg-Trace)
[2023-02-02] MEDS: Azithromycin 500 MG in 0.9 % Sodium Chloride 250 ML 125 MG IV (18:31)
--- NOTE | 2023-02-02 19:31 | P.HPHOSP_ITS ---
History of Present Illness Date of Service: 02/02/23 Attending physician on admission: Frederic Saul Chief Complaint: gtube leaking, weakness 72-year-old male with past medical history of throat cancer in 2002 s/p radiation therapy of the throat, esophageal strictures, gtube in place for all feeds, COPD, depression, hyperlipidemia, GERD, HTN, hypothyroidism, presents to the hospital?for evaluation of g tube leak for several days. As a result he has not been getting much fluids. He is also reporting fever of 100 2 days ago and generalized weakness. He typically ambulated with a walker but today required two person assist to stand. He aslo tells me he iss currently being worked up for a mass in his neck. Following with Dr. Euceda outpatient and has upcoming PET scan. He has had productive cough over the last few days and pleuritic chest pain. No sick contacts. On arrival, blood pressures soft at 93/50, improved to 102/60 on my exam following IVF. Tachycardic to 92, afebrile in the ED. He has a leukocytosis of 28.8. H/H 7.6/22.5, MCV 90 6.2% creatinine 1.13, baseline 0.75, BUN 36, electrolyte levels normal. Urinalysis unremarkable. GTube replaced in ED. KUB showed good placement. CXR shows new areas of consolidation bilaterally. In the ED, given 2L IVF and IV cefepime and azithromycin. Review of Systems Review of Systems: General: No fevers, malaise, unintentional weight loss HEENT: No blurred vision, diplopia. No sore throat, nasal congestion, rhinorrhea, sinus pain, ear pain. +neck mass Cardiovascular: No chest pain, palpitations, or leg edema Respiratory: +pleuritical cp, +cough. No wheezing GI: No abdominal pain, nausea, vomiting, diarrhea, constipation, melena, hematochezia : No dysuria, hematuria, increased urinary frequency, decreased urinary output MSK: No myalgia, back pain Neuro: No headaches, weakness, paresthesias Skin: No rashes or lesions [facility] Medical History Anemia Aortic aneurysm Arthritis Back pain Cancer COPD (chronic obstructive pulmonary disease) COVID-19 Depression Difficulty swallowing Elevated cholesterol Esophageal stricture GERD (gastroesophageal reflux disease) History of chemotherapy History of epistaxis HTN (hypertension) Hx of radiation therapy Lumbar radiculitis Normocytic anemia Osteoarthritis of left shoulder Pain around PEG tube site Post laminectomy syndrome Pulmonary nodule Thyroid disease Uses feeding tube Family History Father Brain cancer Mother CVD (cardiovascular disease) Maternal Aunt Diabetes Surgical History H/O colonoscopy History of back surgery History of esophagogastroduodenoscopy (EGD) History of nasal surgery History of transurethral resection of prostate Social History Household Members: Spouse Household Members Other:: 3 Housing: Apartment Do you presently have visiting nurse or other home services: Yes Alcohol intake: former Patient Tobacco Use Status: Former Tobacco user Quit Date: 40 years ago Tobacco use type: Cigarette Cigarette Packs Per Day: 3 Years Smoked: 25 Smoked in Last 30 Days: No e-Cigarette/Vaping Use: Never Used Second Hand Smoke Exposure: No Use of substances other than those prescribed or required for medical reasons: No Advance Directives: Yes Advance Directives on File: Yes Advance Directives Date on File: 03/04/21 service: No Current occupational status: disabled Meds Allergies Allergy/AdvReac Type Severity Reaction Status Date / Time Penicillins Allergy Intermediate Rash Verified 01/19/23 08:27 aspirin [ASA] AdvReac Intermediate GI BLEED, Verified 01/19/23 08:27 Headaches Active Medications: Current Medications Acetaminophen (Acetaminophen 325 Mg Tablet) 650 mg G-TUBE Q6H PRN PRN Reason: Pain, Mild (Pain Scale 1-3) Albuterol Sulfate (Albuterol Sulfate 90 Mcg 8 Gm Inhaler) 2 puff INHALE Q4H PRN PRN Reason: for dyspnea Amlodipine Besylate (Amlodipine Besylate 2.5 Mg Tablet) 2.5 mg G-TUBE DAILY FRANCK; Protocol Cyanocobalamin (Cyanocobalamin (Vitamin B-12) 1,000 Mcg Tablet) 1,000 mcg G- TUBE DAILY FRANCK Duloxetine HCl (Duloxetine Hcl 30 Mg Capsule.) 30 mg PO DAILY FRANCK Duloxetine HCl (Duloxetine Hcl 60 Mg Capsule.) 60 mg PO DAILY FRANCK Enoxaparin Sodium (Enoxaparin Sodium 40 Mg/0.4 Ml Syringe) 40 mg SUBCUT Q24H [facility] Fluticasone Propionate (Fluticasone Propionate Nasal 16 Gm [place]) 1 spray NOSTRIL-B DAILY [facility] Gabapentin (Gabapentin 400 Mg Capsule) 400 mg G-TUBE TID [facility] Azithromycin 500 mg/ Sodium (Chloride) 250 mls @ 125 mls/hr IV ONCE ONE Stop: 02/02/23 20:14 Last Admin: 02/02/23 18:31 Dose: 125 mls/hr Sodium Chloride (Ns) 1,000 mls @ 999 mls/hr IVCONT .Q1H1M ONE Stop: 02/02/23 19:50 Sodium Chloride (Ns) 1,000 mls @ 100 mls/hr IVCONT .Q10H FRANCK Cefepime HCl 2 gm/ Sodium (Chloride) 50 mls @ 100 mls/hr IV Q12H [facility] Levothyroxine Sodium (Levothyroxine Sodium 75 Mcg Tablet) 75 mcg G-TUBE DAILY@0600 [facility] Non-Formulary Medication (Ferrous Sulfate) 325 mg PO DAILY [facility] Non-Formulary Medication (Fluticasone Propionate [Flovent Hfa]) 2 puff INHALE BID [facility] Non-Formulary Medication (Levocetirizine) 1 tab PO BEDTIME [facility] Non-Formulary Medication (Umeclidinium-Vilanterol [Anoro Ellipta]) 1 inhalation INHALE DAILY [facility] Omeprazole (Omeprazole 40 Mg Capsule.Dr) 40 mg PO DAILY [facility] Ondansetron HCl (Ondansetron Hcl 4 Mg/2 Ml Vial) 4 mg IVPUSH Q8H PRN PRN Reason: Nausea and Vomiting Pharmacy Consult (Consult Rx Perform Med Rec) 1 each MISCELLANE ONCE PRN PRN Reason: Consult order Sodium Chloride (0.9 % Sodium Chloride Flush 3 Ml Syringe) 3 ml IVFLUSH QSHIFT [facility] Tizanidine HCl (Tizanidine Hcl 4 Mg Tablet) 4 mg G-TUBE BEDTIME FRANCK Tramadol HCl (Tramadol Hcl 50 Mg Tablet) 50 mg G-TUBE TID PRN PRN Reason: Pain, Moderate (Pain Scale 4-6 Triamcinolone Acetonide (Triamcinolone Acet 0.5 % Cream 15 Gm Tube) 1 appl TOPICAL BID FRANCK; Protocol Home Medications Medication Instructions Recorded Confirmed Last Taken Type umeclidinium 62.5 mcg-vilanterol 1 inh inhalation DAILY 06/21/20 02/02/23 03/17/22 History 25 mcg/actuation powdr for inhalation (Anoro Ellipta) albuterol sulfate 90 mcg/actuation 2 puff PO Q4H PRN for dyspnea 03/18/22 02/02/23 Unknown History aerosol inhaler acetaminophen 160 mg/5 mL oral 10 ml feeding tube TID PRN pain 11/18/22 02/02/23 Unknown History liquid (M-PAP) duloxetine 30 mg capsule,delayed 1 cap PO DAILY 11/18/22 02/02/23 Unknown History release duloxetine 60 mg capsule,delayed 1 cap PO DAILY 11/18/22 02/02/23 Unknown History release fluticasone propionate 110 2 puff inhalation BID 11/18/22 02/02/23 Unknown History mcg/actuation HFA aerosol inhaler (Flovent HFA) fluticasone propionate 50 1 spray intranasal DAILY 11/18/22 02/02/23 Unknown History mcg/actuation nasal spray,suspension levocetirizine 5 mg tablet 1 tab PO BEDTIME 11/18/22 02/02/23 Unknown History omeprazole 40 mg capsule,delayed 1 cap PO DAILY 11/18/22 02/02/23 Unknown History release tizanidine 4 mg tablet 1 tab PO BEDTIME 11/18/22 02/02/23 Unknown History triamcinolone acetonide 0.5 % 1 appl topical BID 11/18/22 02/02/23 Unknown History topical cream ferrous sulfate 325 mg (65 mg 325 mg PO DAILY 01/13/23 02/02/23 Unknown History iron) tablet,delayed release tramadol 50 mg tablet 50 mg PO TID PRN Pain, Moderate 02/02/23 02/02/23 Unknown History (Pain Scale 4-6 Physical Exam Vital Signs and Narrative: Vital Signs: Last Vital Signs Temp 98.1 F 02/02/23 15:32 Pulse 94 02/02/23 17:12 Resp 19 02/02/23 17:12 BP 93/50 L 02/02/23 17:12 Pulse Ox 94 02/02/23 16:14 O2 Del Method Room Air 02/02/23 16:14 BMI result Body Mass Index 20.7 Constitutional - Awake and Alert, No apparent distress Eyes - PERRLA, EOMI Neck- Large left-sided firm submandibular mass without fluctuance or induration Cardiovascular - S1S2, RRR, No edema Respiratory - Normal lung expansion, Normal respiratory effort, No respiratory distress, CTA bilaterally Gastrointestinal - NT / ND; +BS; No rebound or guarding. GTube in place with bile present in tubing Extremities - no calf tenderness bilaterally, no swelling Skin - Warm/Dry Neurological - Alert & oriented x3, 5/5 strength BUE and BLE Psychological - Appropriate affect Results Labs 02/02/23 15:52 02/02/23 15:52 Labs: Laboratory Results - last 24 hr 02/02/23 02/02/23 02/02/23 15:52 15:52 15:52 MCV 96.2 MCH 32.5 MCHC 33.8 RDW 16.8 H Plt Count 452 H D MPV 10.7 Immature Gran % (Auto) 2.4 H Neut % (Auto) 90.1 H Lymph % (Auto) 2.1 L [place] % (Auto) 5.1 Eos % (Auto) 0.1 Baso % (Auto) 0.2 Lymph # (Auto) 0.6 L [place] # (Auto) 1.5 H Eos # (Auto) 0.0 Baso # (Auto) 0.1 Abs Immat Gran (auto) 0.68 H Absolute Neuts (auto) 25.9 H Absolute Nucleated RBC 0.050 H Nucleated RBC % (auto) 0.2 Smear Tech's Comments VERIFIED Anion Gap 15 Estim Creat Clear Calc 50.2 Estimated GFR > 60 Random Glucose 117 H Lactic Acid Calcium 8.2 L D Troponin I High Sens 3.9 D Urine Color Urine Appearance Urine pH Ur Specific [place] Urine Protein Urine Glucose (UA) Urine Ketones Urine Blood Urine Nitrite Ur Leukocyte Esterase 02/02/23 02/02/23 17:17 18:13 MCV MCH MCHC RDW Plt Count MPV Immature Gran % (Auto) Neut % (Auto) Lymph % (Auto) [place] % (Auto) Eos % (Auto) Baso % (Auto) Lymph # (Auto) [place] # (Auto) Eos # (Auto) Baso # (Auto) Abs Immat Gran (auto) Absolute Neuts (auto) Absolute Nucleated RBC Nucleated RBC % (auto) Smear Tech's Comments Anion Gap Estim Creat Clear Calc Estimated GFR Random Glucose Lactic Acid 0.8 Calcium Troponin I High Sens Urine Color Dark Yellow Urine Appearance Clear Urine pH 5.5 Ur Specific [place] 1.020 Urine Protein 30 (1+) H Urine Glucose (UA) Negative Urine Ketones Negative Urine Blood Negative Urine Nitrite Negative Ur Leukocyte Esterase Trace H Imaging Radiologist's Impressions: Impressions Chest X-Ray 02/02/23 18:08 IMPRESSION: 1. New areas of consolidation in the lungs as described above. 2. G-tube is in good position. KUB X-Ray 02/02/23 18:08 IMPRESSION: 1. New areas of consolidation in the lungs as described above. 2. G-tube is in good position. Assessment and Plan (1) Gastrostomy tube dysfunction: Status: Acute (2) Pneumonia: Status: Acute (3) Mass in neck: Status: Acute Plan 72-year-old male with past medical history of throat cancer in 2002 s/p radiation therapy of the throat, esophageal strictures, gtube in place for all feeds, COPD, depression, hyperlipidemia, GERD, HTN, hypothyroidism admitted for bilateral pneumonia with sepsis. #Bilateral pneumonia with sepsis -WBC 28.8, tachycardic. LUISA due to dehydration not severe sepsis. Lactic acid normal, no hypotension -IV cefepime and azithromycin -symptomatic management -Continue IVF -Follow CBC, cultures #Acute kidney injury- related to G-Tube dysfunction and dehydration -Creat 1.15, baseline 0.75, BUN 36 -Continue IVF -GTube replaced in ED -Tube feeding diet -Follow BMP #Neck mass -Ct scan 01/21 showed soft tissue thickening extending from angle of left mandible poseriorly without discrete mass and inverval increase in size of level IA lymph node compared to prior imaging. -Bx of mass negative for malignancy but showed acute inflammatory exudate and necrosis consistent with abscess formation, negative for fungal organisms or malignancy -Continue abx as above -General surgery consult -PET scan outpt #HTN- bp soft -hold antihypertensives in setting of sepsis #Hypothyroidism -continue levothyroxine #COPD- no acute exacerbation -continue maintenance inhalers, albuterol p.r.n. DVT prophylaxis-Lovenox Full code Patient requires inpatient stay at least 2 midnights for management of bilateral pneumonia with sepsis requiring IV antibiotics Time Spent With Patient Time: Total time managing care of this patient today ____ minutes. Quality Stroke Does the patient have a stroke diagnosis?: No VTE Prior VTE?: No VTE Risk Level:: Medical - moderate - high VTE Device Contraindication: Treatment Not Indicated VTE Drug Contraindication: N/A - Med Ordered
[2023-02-02 19:53] LABS: Bacteria Urine None Seen (None Seen); RBC Urine 0-2 /HPF (0-2); WBC Urine 0-5 /HPF (0-5)
[2023-02-02] MEDS: cefEPime HCl 2 GM in 0.9 % Sodium Chloride 50 ML IV (20:46)
[2023-02-02] MEDS: Enoxaparin Sodium 40 MG/0.4 ML SYRINGE SUBCUT (20:46)
[2023-02-02] MEDS: Gabapentin 400 MG CAPSULE G-TUBE (20:47)
[2023-02-02] MEDS: TiZANidine HCL 4 MG TABLET G-TUBE (20:47)
[2023-02-02] MEDS: 0.9 % Sodium Chloride 1,000 ML 100 ML IVCONT (22:28)
[2023-02-03] VITALS (14 sets, daily range): BP systolic 103–169; BP diastolic 52–86; PULSE 100–115; RESP 16–20; TEMP 36.2–37.3; O2SAT 93–97; BMI 20.7
[2023-02-03] MEDS: traMADoL HCL 50 MG TABLET G-TUBE (01:38)
--- NOTE | 2023-02-03 04:01 | PC.NURSE ---
GT dsg saturated upon arrival from ED, dsg changed, GT placement verifid, some meds given via GT. Significant drainage noted around GT insertion area right after post medication flushing.
[2023-02-03] MEDS: Morphine Sulfate 2 MG/ML CARTRIDGE IVPUSH ×3 (04:59→20:16)
[2023-02-03] MEDS: Levothyroxine Sodium 75 MCG TABLET G-TUBE (05:00)
[2023-02-03] MEDS: Omeprazole 40 MG CAPSULE.DR PO (05:00)
[2023-02-03 06:04] LABS: Basophils Absolute Auto 0.1 X10*3/uL (0.0-0.2); Basophils Percent Auto 0.3 % (0-2); Eosinophils Percent Auto 0.1 % (0-4); Imm Gran Abs Auto 0.91 X10*3/uL (0.00-0.03); Imm Gran Pct Auto 2.8 % (0.0-0.4); Lymphocytes Absolute Auto 0.3 X10*3/uL (1.2-4.9); Lymphocytes Percent Auto 0.9 % (20-40); MANUAL DIFF FLAG SCAN; Mean Corpuscular HGB Conc 33.5 g/dl (31.0-36.0); Mean Corpuscular Hemoglobin 32.7 pg (27.0-33.0); Mean Corpuscular Volume 97.5 fL (80.0-98.0); Mean Platelet Volume 10.5 fL (9.4-12.4); Monocytes Absolute Auto 1.3 X10*3/uL (0.1-1.2); NRBC Pct Auto 0.1 /100WBC (0.0-0.2); Neutrophils Absolute Auto 30.1 x10*3/uL (2.0-8.3); Neutrophils Percent Auto 91.9 % (45-73); Platelet Count 448 X10*3/uL (160-400); Red Blood Count 1.99 X10*6/uL (4.60-5.80); Red Cell Distribution Width 16.8 % (11.0-16.0); SCAN SMEAR FLAG 1
[2023-02-03 06:19] LABS: Hematocrit 19.4 % (42.0-52.0); Hemoglobin 6.5 g/dl (14.0-18.0); White Blood Count 32.7 X10*3/uL (4.8-10.8)
[2023-02-03 06:32] LABS: SLIDE REVIEW VERIFIED
[2023-02-03 06:33] LABS: Anion Gap 14 (12-20); Blood Urea Nitrogen 30 mg/dL (9-16); Calcium 7.8 mg/dL (8.4-10.2); Carbon Dioxide 24 mmol/L (22-29); Chloride 108 mmol/L (96-108); Creatinine Clr Calc Pharmacy 68.3; Estimated Glomerular Filt Rate > 60; Glucose Random 84 mg/dL (60-115); Sodium 142 mmol/L (135-145)
[2023-02-03] MEDS: cefEPime HCl 2 GM in 0.9 % Sodium Chloride 50 ML IV ×2 (07:29→21:09)
[2023-02-03] MEDS: DULoxetine HCl 30 MG CAPSULE.DR PO (07:31)
[2023-02-03] MEDS: DULoxetine HCl 60 MG CAPSULE.DR PO (07:31)
[2023-02-03] MEDS: Cyanocobalamin (Vitamin B-12) 1,000 MCG TABLET 1000 MCG G-TUBE (07:31)
[2023-02-03] MEDS: Ferrous Sulfate 324 MG TABLET.DR PO (07:31)
--- NOTE | 2023-02-03 10:04 | MHC.CLN ---
PT WITH LEAKING G TUBE SITE AND PT REPORTED TURNING OFF TF VINEYARDIST IN ADDITION TO REPORTED FEVERS WITH INCREASED NUTRITION RISK R/T CA DX PT REQUIRES TF FOR 100% NUTRITION SUPPORT RECOMMEND TF JEVITY 1.0 AT MAX GOAL RATE 70ML/HR WITH 120ML FWF Q 6HRS TO PROVIDE 1780KCALS (30KCALS/KG), 74G PROTEIN (1.2G/KG), 1883ML TOTAL WATER FROM FORMULA AND FLUSHES (31ML/KG)-CAN INCREASE WITH FEVERS NEEDED MONITOR TOLERANCE, RESIDUALS AND LYTES SEE ALSO FULL CLINICAL NUTRITION ASSESSMENT
[2023-02-03] MEDS: Gabapentin 400 MG CAPSULE G-TUBE ×3 (10:23→20:17)
--- NOTE | 2023-02-03 11:31 | HO.PM.IMPN ---
Subjective Subjective Date of Service: 02/03/23 Interval History: seen and examined this morning follow up for anemia and pna no overnight events no chest pain Review of Systems Review of Systems: Yes all other systems are reviewed and are negative Constitutional Constitutional: Denies chills and Denies fever(s) ENT Ears, Nose, Mouth, and Throat: Denies dizziness Cardiovascular Cardiovascular: Denies chest pain, Denies palpitations and Denies dyspnea Respiratory Respiratory: Denies cough and Denies dyspnea Gastrointestinal Gastrointestinal: Denies abdominal pain Neurologic Neurologic: Denies dizziness Endocrine Endocrine: Denies palpitations Physical Exam Vital Signs: Vital Signs: Last Vital Signs Temp 98.9 F 02/03/23 10:54 Pulse 113 H 02/03/23 10:54 Resp 16 02/03/23 10:54 BP 120/67 02/03/23 10:54 Pulse Ox 93 02/03/23 10:46 O2 Del Method Room Air 02/03/23 10:46 BMI result Body Mass Index 20.7 Appearing in no acute distress lung sounds are clear to auscultation heart regular rate rhythm, clear S1, S2 positive bowel sounds, abdomen is soft, nontender neuro patient is alert x3, no focal deficits Objective Data Active Medications Acetaminophen (Acetaminophen 325 Mg Tablet) 650 mg G-TUBE Q6H PRN PRN Reason: Pain, Mild (Pain Scale 1-3) Albuterol Sulfate (Albuterol Sulfate 90 Mcg 8 Gm Inhaler) 2 puff INHALE Q4H PRN PRN Reason: for dyspnea Cyanocobalamin (Cyanocobalamin (Vitamin B-12) 1,000 Mcg Tablet) 1,000 mcg G-TUBE DAILY [facility] Last Admin: 02/03/23 07:31 Dose: 1,000 mcg Documented By: ADRIANA Duloxetine HCl (Duloxetine Hcl 30 Mg Capsule.) 30 mg PO DAILY [facility] Last Admin: 02/03/23 07:31 Dose: 30 mg Documented By: ADRIANA Duloxetine HCl (Duloxetine Hcl 60 Mg Capsule.) 60 mg PO DAILY [facility] Last Admin: 02/03/23 07:31 Dose: 60 mg Documented By: ADRIANA Enoxaparin Sodium (Enoxaparin Sodium 40 Mg/0.4 Ml Syringe) 40 mg SUBCUT Q24H [facility] Last Admin: 02/02/23 20:46 Dose: 40 mg Documented By: BERRY Ferrous Sulfate (Ferrous Sulfate 324 Mg Tablet.) 324 mg PO DAILY [facility] Last Admin: 02/03/23 07:31 Dose: 324 mg Documented By: ADRIANA Fluticasone Propionate (Fluticasone Propionate 100 Mcg Blst.W.Dev) 2 puff INHALE RBID [facility] Last Admin: 02/03/23 08:16 Dose: Not Given Documented By: BRAD Non-Admin Reason: pharmacy called Fluticasone Propionate (Fluticasone Propionate Nasal 16 Gm [place]) 1 spray NOSTRIL-B DAILY [facility] Last Admin: 02/03/23 07:32 Dose: Not Given Documented By: ADRIANA Non-Admin Reason: Med Not Available Gabapentin (Gabapentin 400 Mg Capsule) 400 mg G-TUBE TID [facility] Last Admin: 02/03/23 10:23 Dose: 400 mg Documented By: ADRIANA Guaifenesin (Guaifenesin 100 Mg/5 Ml Liquid) 10 ml G-TUBE Q4H PRN PRN Reason: Cough Sodium Chloride (Ns) 1,000 mls @ 100 mls/hr IVCONT .Q10H [facility] Last Infusion: 02/03/23 09:02 Dose: 0 mls/hr Documented By: ADRIANA Cefepime HCl 2 gm/ Sodium (Chloride) 50 mls @ 100 mls/hr IV Q12H [facility] Last Infusion: 02/03/23 08:11 Dose: 0 mls/hr Documented By: ADRIANA Azithromycin 500 mg/ Sodium (Chloride) 250 mls @ 125 mls/hr IV Q24H [facility] Stop: 02/04/23 19:59 Levothyroxine Sodium (Levothyroxine Sodium 75 Mcg Tablet) 75 mcg G-TUBE DAILY@0600 [facility] Last Admin: 02/03/23 05:00 Dose: 75 mcg Documented By: GWENDOLYN Non-Formulary Medication (Levocetirizine) 1 tab PO BEDTIME [facility] Non-Formulary Medication (Umeclidinium-Vilanterol [Anoro Ellipta]) 1 inhalation INHALE DAILY [facility] Omeprazole (Omeprazole 40 Mg Capsule.) 40 mg PO DAILY@0630 [facility] Last Admin: 02/03/23 05:00 Dose: 40 mg Documented By: GWENDOLYN Ondansetron HCl (Ondansetron Hcl 4 Mg/2 Ml Vial) 4 mg IVPUSH Q8H PRN PRN Reason: Nausea and Vomiting Pharmacy Consult (Consult Rx Perform Med Rec) 1 each MISCELLANE ONCE PRN PRN Reason: Consult order Sodium Chloride (0.9 % Sodium Chloride Flush 3 Ml Syringe) 3 ml IVFLUSH QSHIFT [facility] Last Admin: 02/03/23 07:29 Dose: Not Given Documented By: ADRIANA Non-Admin Reason: IV Running Tizanidine HCl (Tizanidine Hcl 4 Mg Tablet) 4 mg G-TUBE BEDTIME [facility] Last Admin: 02/02/23 20:47 Dose: 4 mg Documented By: BERRY Tramadol HCl (Tramadol Hcl 50 Mg Tablet) 50 mg G-TUBE TID PRN PRN Reason: Pain, Moderate (Pain Scale 4-6 Last Admin: 02/03/23 01:38 Dose: 50 mg Documented By: BERRY Triamcinolone Acetonide (Triamcinolone Acet 0.5 % Cream 15 Gm Tube) 1 appl TOPICAL BID [facility]; Protocol Last Admin: 02/03/23 10:22 Dose: Not Given Documented By: ADRIANA Non-Admin Reason: pt states no rash Labs 02/03/23 05:28 02/03/23 05:28 Labs: Laboratory Results - last 24 hr 02/02/23 02/02/23 02/02/23 15:52 15:52 15:52 MCV 96.2 MCH 32.5 MCHC 33.8 RDW 16.8 H Plt Count 452 H D MPV 10.7 Immature Gran % (Auto) 2.4 H Neut % (Auto) 90.1 H Lymph % (Auto) 2.1 L [place] % (Auto) 5.1 Eos % (Auto) 0.1 Baso % (Auto) 0.2 Lymph # (Auto) 0.6 L [place] # (Auto) 1.5 H Eos # (Auto) 0.0 Baso # (Auto) 0.1 Abs Immat Gran (auto) 0.68 H Absolute Neuts (auto) 25.9 H Absolute Nucleated RBC 0.050 H Nucleated RBC % (auto) 0.2 Smear Tech's Comments VERIFIED Anion Gap 15 Estim Creat Clear Calc 50.2 Estimated GFR > 60 Random Glucose 117 H Lactic Acid Calcium 8.2 L D Troponin I High Sens 3.9 D Urine Color Urine Appearance Urine pH Ur Specific [place] Urine Protein Urine Glucose (UA) Urine Ketones Urine Blood Urine Nitrite Ur Leukocyte Esterase Urine RBC Urine WBC Ur Squamous Epith Cells Urine Bacteria Hyaline Casts Blood Type Antibody Screen Crossmatch 02/02/23 02/02/23 02/03/23 17:17 18:13 05:28 MCV 97.5 MCH 32.7 MCHC 33.5 RDW 16.8 H Plt Count 448 H MPV 10.5 Immature Gran % (Auto) 2.8 H Neut % (Auto) 91.9 H Lymph % (Auto) 0.9 L [place] % (Auto) 4.0 Eos % (Auto) 0.1 Baso % (Auto) 0.3 Lymph # (Auto) 0.3 L [place] # (Auto) 1.3 H Eos # (Auto) 0.0 Baso # (Auto) 0.1 Abs Immat Gran (auto) 0.91 H Absolute Neuts (auto) 30.1 H Absolute Nucleated RBC 0.030 H Nucleated RBC % (auto) 0.1 Smear Tech's Comments VERIFIED Anion Gap Estim Creat Clear Calc Estimated GFR Random Glucose Lactic Acid 0.8 Calcium Troponin I High Sens Urine Color Dark Yellow Urine Appearance Clear Urine pH 5.5 Ur Specific [place] 1.020 Urine Protein 30 (1+) H Urine Glucose (UA) Negative Urine Ketones Negative Urine Blood Negative Urine Nitrite Negative Ur Leukocyte Esterase Trace H Urine RBC 0-2 Urine WBC 0-5 Ur Squamous Epith Cells 3-5 Urine Bacteria None Seen Hyaline Casts 11-20 Blood Type Antibody Screen Crossmatch 02/03/23 02/03/23 05:28 06:59 MCV MCH MCHC RDW Plt Count MPV Immature Gran % (Auto) Neut % (Auto) Lymph % (Auto) [place] % (Auto) Eos % (Auto) Baso % (Auto) Lymph # (Auto) [place] # (Auto) Eos # (Auto) Baso # (Auto) Abs Immat Gran (auto) Absolute Neuts (auto) Absolute Nucleated RBC Nucleated RBC % (auto) Smear Tech's Comments Anion Gap 14 Estim Creat Clear Calc 68.3 Estimated GFR > 60 Random Glucose 84 Lactic Acid Calcium 7.8 L Troponin I High Sens Urine Color Urine Appearance Urine pH Ur Specific [place] Urine Protein Urine Glucose (UA) Urine Ketones Urine Blood Urine Nitrite Ur Leukocyte Esterase Urine RBC Urine WBC Ur Squamous Epith Cells Urine Bacteria Hyaline Casts Blood Type O Positive Antibody Screen NEGATIVE Crossmatch See Detail Assessment and Plan (1) Gastrostomy tube dysfunction: Status: Acute Plan 72-year-old male with past medical history of throat cancer in 2002 s/p radiation therapy of the throat, esophageal strictures, gtube in place for all feeds, COPD, depression, hyperlipidemia, GERD, HTN, hypothyroidism admitted for bilateral pneumonia with sepsis. Bilateral pneumonia with sepsis WBC 32.7, tachycardia. LUISA due to dehydration not severe sepsis. Lactic acid normal, no hypotension IV cefepime and azithromycin supplemental oxygen antitussin as needed symptomatic management Acute on chronic non blood loss anemia hx of iron deficiency HH down to 6.5/19.4 s/p 3 units PRBC Acute kidney injury- related to G-Tube dysfunction and dehydration. resolving Creat 1.15, baseline 0.75, BUN 36 s/p IVF GTube replaced in ED Tube feeding diet as per mobile home park manager Follow BMP Neck mass Ct scan 01/21 showed soft tissue thickening extending from angle of left mandible poseriorly without discrete mass and inverval increase in size of level IA lymph node compared to prior imaging. Bx of mass negative for malignancy but showed acute inflammatory exudate and necrosis consistent with abscess formation, negative for fungal organisms or malignancy Continue abx as above General surgery consult PET scan outpt HTN- bp soft hold antihypertensives in setting of sepsis Hypothyroidism continue levothyroxine COPD- no acute exacerbation continue maintenance inhalers, albuterol p.r.n. DVT prophylaxis-Lovenox Attending Dr. horton continued hospital stay for management of bilateral pneumonia with sepsis requiring IV antibiotics Time Spent With Patient Time: Total time managing care of this patient today ____ minutes. Quality Stroke Does the patient have a stroke diagnosis?: No VTE Prior VTE?: No VTE Risk Level:: Medical - moderate - high VTE Device Contraindication: Treatment Not Indicated VTE Drug Contraindication: N/A - Med Ordered
--- NOTE | 2023-02-03 11:46 | MHC.CM.PN ---
Addendum entered by Gina Singh 02/03/23 11:52: VAXXED X4 HCP ON FILE DTR AMANDA Original Note: IMM02/03/23 Male 72 DX BL PNA Lives w . He is independent with all functional mobility. DP home self care. Patients dtr will provide transport home.
[2023-02-03] MEDS: ondansetron HCL 4 MG/2 ML VIAL IVPUSH (15:31)
[2023-02-03] MEDS: guaiFENesin 100 MG/5 ML LIQUID 10 ML G-TUBE (15:31)
--- NOTE | 2023-02-03 16:10 | PM.EVENT ---
Event Note Date of Service: 02/03/23 Event Note: feeding tube in place should have a wellfomed tract by now ok to restart tube feeds abd soft and benign Time Spent With Patient Time: Total time managing care of this patient today ____ minutes.
[2023-02-03] MEDS: Azithromycin 500 MG in 0.9 % Sodium Chloride 250 ML 125 MG IV (18:18)
[2023-02-03 19:44] LABS: Hematocrit 27.2 % (42.0-52.0); Hemoglobin 9.3 g/dl (14.0-18.0)
[2023-02-03] MEDS: Enoxaparin Sodium 40 MG/0.4 ML SYRINGE SUBCUT (20:16)
[2023-02-03] MEDS: TiZANidine HCL 4 MG TABLET G-TUBE (20:16)
[2023-02-03] MEDS: Fluticasone Propionate 100 MCG BLST.W.DEV 2 PUFF INHALE (20:23)
[2023-02-04] MEDS: Levothyroxine Sodium 75 MCG TABLET G-TUBE (05:37)
[2023-02-04 06:55] LABS: Anion Gap 14 (12-20); Blood Urea Nitrogen 17 mg/dL (9-16); Calcium 7.6 mg/dL (8.4-10.2); Carbon Dioxide 22 mmol/L (22-29); Chloride 109 mmol/L (96-108); Creatinine Clr Calc Pharmacy 84.7; Estimated Glomerular Filt Rate > 60; Glucose Random 112 mg/dL (60-115); Potassium 3.6 mmol/L (3.3-5.1); Sodium 141 mmol/L (135-145)
[2023-02-04 07:02] LABS: Basophils Absolute Auto 0.1 X10*3/uL (0.0-0.2); Basophils Percent Auto 0.3 % (0-2); Eosinophils Percent Auto 0.2 % (0-4); Hematocrit 26.1 % (42.0-52.0); Hemoglobin 8.9 g/dl (14.0-18.0); Imm Gran Abs Auto 0.46 X10*3/uL (0.00-0.03); Imm Gran Pct Auto 2.2 % (0.0-0.4); Lymphocytes Absolute Auto 0.4 X10*3/uL (1.2-4.9); Lymphocytes Percent Auto 2.1 % (20-40); MANUAL DIFF FLAG SCAN; Mean Corpuscular HGB Conc 34.1 g/dl (31.0-36.0); Mean Corpuscular Hemoglobin 32.2 pg (27.0-33.0); Mean Corpuscular Volume 94.6 fL (80.0-98.0); Mean Platelet Volume 10.8 fL (9.4-12.4); Monocytes Percent Auto 4.8 % (2-11); NRBC Pct Auto 0.1 /100WBC (0.0-0.2); Neutrophils Absolute Auto 18.7 x10*3/uL (2.0-8.3); Neutrophils Percent Auto 90.4 % (45-73); Platelet Count 460 X10*3/uL (160-400); Red Blood Count 2.76 X10*6/uL (4.60-5.80); Red Cell Distribution Width 16.1 % (11.0-16.0); SCAN SMEAR FLAG 1; White Blood Count 20.7 X10*3/uL (4.8-10.8)
[2023-02-04 07:35] VITALS: BP 144/67; PULSE 107; RESP 18; TEMP 36.7; O2SAT 95
[2023-02-04] MEDS: Morphine Sulfate 2 MG/ML CARTRIDGE IVPUSH ×3 (07:42→20:01)
[2023-02-04] MEDS: cefEPime HCl 2 GM in 0.9 % Sodium Chloride 50 ML IV ×2 (07:42→20:02)
[2023-02-04] MEDS: Gabapentin 400 MG CAPSULE G-TUBE ×3 (07:43→20:02)
[2023-02-04] MEDS: DULoxetine HCl 30 MG CAPSULE.DR PO (07:43)
[2023-02-04] MEDS: DULoxetine HCl 60 MG CAPSULE.DR PO (07:43)
[2023-02-04] MEDS: Ferrous Sulfate 324 MG TABLET.DR PO (07:43)
[2023-02-04] MEDS: Cyanocobalamin (Vitamin B-12) 1,000 MCG TABLET 1000 MCG G-TUBE (07:43)
[2023-02-04] MEDS: 0.9 % Sodium Chloride Flush 3 ML SYRINGE IVFLUSH ×3 (07:56→20:03)
[2023-02-04 08:31] LABS: SLIDE REVIEW VERIFIED
[2023-02-04 09:42] LABS: Procalcitonin 1.12 ng/mL
--- NOTE | 2023-02-04 12:12 | MHC.CLN ---
F/U TOLERATING CURRENT TUBE FEEDING AND CONTINUE TO TITRATE TO MAX GOAL RATE. PT REQUIRES TF FOR 100% NUTRITION SUPPORT. TF JEVITY 1.0 AT MAX GOAL RATE 70ML/HR WITH 120ML FWF Q 6HRS TO PROVIDE 1780KCALS (30KCALS/KG), 74G PROTEIN (1.2G/KG), 1883ML TOTAL WATER FROM FORMULA AND FLUSHES (31ML/KG). MONITOR TOLERANCE, RESIDUALS AND LYTES.
--- NOTE | 2023-02-04 13:20 | MHC.CM.PN ---
EMR REVIEWED AND PER MD ROUNDS, PT IS NOT MEDICALLY CLEARED FOR DC (BILAT PNA, SEPSIS AND IV ABT) CM WILL CONTINUE TO FOLLOW FOR DC NEEDS/PLAN
--- NOTE | 2023-02-04 13:58 | HO.PM.IMPN ---
Subjective Subjective Date of Service: 02/04/23 Interval History: no fever cough improving weaned off O2 Review of Systems Review of Systems: Yes all other systems are reviewed and are negative Physical Exam Vital Signs: Vital Signs: Last Vital Signs Temp 98.0 F 02/04/23 07:35 Pulse 107 H 02/04/23 07:35 Resp 18 02/04/23 07:35 BP 144/67 H 02/04/23 07:35 Pulse Ox 95 02/04/23 07:35 O2 Del Method Room Air 02/04/23 07:35 BMI result Body Mass Index 20.7 Gen: in no acute distress, thin HEENT: sclera anicteric, moist mucus membranes Neck: supple Lungs: diminished bilaterally Heart: regular rate and rhythm, no murmurs Abd: soft, non-tender, non-distended, G tube in place Ext: no edema Skin: warm/well-perfused Neuro: alert and oriented x3, no focal findings Psych: appropriate affect Objective Data Active Medications Acetaminophen (Acetaminophen 325 Mg Tablet) 650 mg G-TUBE Q6H PRN PRN Reason: Pain, Mild (Pain Scale 1-3) Albuterol Sulfate (Albuterol Sulfate 90 Mcg 8 Gm Inhaler) 2 puff INHALE Q4H PRN PRN Reason: for dyspnea Cyanocobalamin (Cyanocobalamin (Vitamin B-12) 1,000 Mcg Tablet) 1,000 mcg G-TUBE DAILY [facility] Last Admin: 02/04/23 07:43 Dose: 1,000 mcg Documented By: ADRIANA Duloxetine HCl (Duloxetine Hcl 30 Mg Capsule.) 30 mg PO DAILY [facility] Last Admin: 02/04/23 07:43 Dose: 30 mg Documented By: ADRIANA Duloxetine HCl (Duloxetine Hcl 60 Mg Capsule.) 60 mg PO DAILY [facility] Last Admin: 02/04/23 07:43 Dose: 60 mg Documented By: ADRIANA Enoxaparin Sodium (Enoxaparin Sodium 40 Mg/0.4 Ml Syringe) 40 mg SUBCUT Q24H [facility] Last Admin: 02/03/23 20:16 Dose: 40 mg Documented By: NOREEN Ferrous Sulfate (Ferrous Sulfate 324 Mg Tablet.) 324 mg PO DAILY [facility] Last Admin: 02/04/23 07:43 Dose: 324 mg Documented By: ADRIANA Fluticasone Propionate (Fluticasone Propionate 100 Mcg Blst.W.Dev) 2 puff INHALE RBID [facility] Last Admin: 02/04/23 07:53 Dose: Not Given Documented By: SHEILA Non-Admin Reason: Patient Refused Fluticasone Propionate (Fluticasone Propionate Nasal 16 Gm [place]) 1 spray NOSTRIL-B DAILY [facility] Last Admin: 02/04/23 09:11 Dose: Not Given Documented By: ADRIANA Non-Admin Reason: Med Not Available Gabapentin (Gabapentin 400 Mg Capsule) 400 mg G-TUBE TID [facility] Last Admin: 02/04/23 07:43 Dose: 400 mg Documented By: ADRIANA Guaifenesin (Guaifenesin 100 Mg/5 Ml Liquid) 10 ml G-TUBE Q4H PRN PRN Reason: Cough Last Admin: 02/03/23 15:31 Dose: 10 ml Documented By: ADRIANA Cefepime HCl 2 gm/ Sodium (Chloride) 50 mls @ 100 mls/hr IV Q12H [facility] Last Infusion: 02/04/23 09:17 Dose: 0 mls/hr Documented By: ADRIANA Azithromycin 500 mg/ Sodium (Chloride) 250 mls @ 125 mls/hr IV Q24H [facility] Stop: 02/04/23 19:59 Last Infusion: 02/03/23 21:09 Dose: 125 mls/hr Documented By: NOREEN Levothyroxine Sodium (Levothyroxine Sodium 75 Mcg Tablet) 75 mcg G-TUBE DAILY@0600 [facility] Last Admin: 02/04/23 05:37 Dose: 75 mcg Documented By: DAVIDA Morphine Sulfate (Morphine Sulfate 2 Mg/Ml Cartridge) 2 mg IVPUSH Q4H PRN; Protocol PRN Reason: Pain, Mild (Pain Scale 1-3) Last Admin: 02/04/23 07:42 Dose: 2 mg Documented By: ADRIANA Non-Formulary Medication (Levocetirizine) 1 tab PO BEDTIME [facility] Non-Formulary Medication (Umeclidinium-Vilanterol [Anoro Ellipta]) 1 inhalation INHALE DAILY [facility] Omeprazole (Omeprazole 40 Mg Capsule.Dr) 40 mg PO DAILY@0630 [facility] Last Admin: 02/04/23 05:38 Dose: Not Given Documented By: DAVIDA Non-Admin Reason: pt stated cannot swallow, order is po nogt Ondansetron HCl (Ondansetron Hcl 4 Mg/2 Ml Vial) 4 mg IVPUSH Q8H PRN PRN Reason: Nausea and Vomiting Last Admin: 02/03/23 15:31 Dose: 4 mg Documented By: ADRIANA Pharmacy Consult (Consult Rx Perform Med Rec) 1 each MISCELLANE ONCE PRN PRN Reason: Consult order Sodium Chloride (0.9 % Sodium Chloride Flush 3 Ml Syringe) 3 ml IVFLUSH QSHIFT [facility] Last Admin: 02/04/23 07:56 Dose: 3 ml Documented By: ADRIANA Tizanidine HCl (Tizanidine Hcl 4 Mg Tablet) 4 mg G-TUBE BEDTIME [facility] Last Admin: 02/03/23 20:16 Dose: 4 mg Documented By: NOREEN Tramadol HCl (Tramadol Hcl 50 Mg Tablet) 50 mg G-TUBE TID PRN PRN Reason: Pain, Moderate (Pain Scale 4-6 Last Admin: 02/03/23 01:38 Dose: 50 mg Documented By: BERRY Triamcinolone Acetonide (Triamcinolone Acet 0.5 % Cream 15 Gm Tube) 1 appl TOPICAL BID [facility]; Protocol Last Admin: 02/04/23 07:56 Dose: Not Given Documented By: ADRIANA Non-Admin Reason: pt states no rash Labs 02/04/23 05:56 02/04/23 05:56 Labs: Laboratory Results - last 24 hr 02/03/23 02/03/23 02/04/23 05:28 06:59 05:56 MCV 94.6 MCH 32.2 MCHC 34.1 RDW 16.1 H Plt Count 460 H MPV 10.8 Immature Gran % (Auto) 2.2 H Neut % (Auto) 90.4 H Lymph % (Auto) 2.1 L [place] % (Auto) 4.8 Eos % (Auto) 0.2 Baso % (Auto) 0.3 Lymph # (Auto) 0.4 L [place] # (Auto) 1.0 Eos # (Auto) 0.0 Baso # (Auto) 0.1 Abs Immat Gran (auto) 0.46 H Absolute Neuts (auto) 18.7 H Absolute Nucleated RBC 0.020 H Nucleated RBC % (auto) 0.1 Smear Tech's Comments VERIFIED Smear Path Review Anion Gap Estim Creat Clear Calc Estimated GFR Random Glucose Calcium Procalcitonin Blood Type O Positive Antibody Screen NEGATIVE Crossmatch See Detail 02/04/23 05:56 MCV MCH MCHC RDW Plt Count MPV Immature Gran % (Auto) Neut % (Auto) Lymph % (Auto) [place] % (Auto) Eos % (Auto) Baso % (Auto) Lymph # (Auto) [place] # (Auto) Eos # (Auto) Baso # (Auto) Abs Immat Gran (auto) Absolute Neuts (auto) Absolute Nucleated RBC Nucleated RBC % (auto) Smear Tech's Comments Smear Path Review Anion Gap 14 Estim Creat Clear Calc 84.7 Estimated GFR > 60 Random Glucose 112 Calcium 7.6 L Procalcitonin 1.12 Blood Type Antibody Screen Crossmatch Microbiology Microbiology Results: Microbiology 02/02/23 17:19 Blood Culture - Preliminary Blood - Venous No growth after 24 hours. 02/02/23 17:19 Blood Culture - Preliminary Blood - Venous No growth after 24 hours. Assessment and Plan (1) Gastrostomy tube dysfunction: Status: Acute Plan d#3 72yo M with throat CA in 2002 s/p XRT with resultant esophageal strictures and G-tube placement for all feeding, COPD, depression, HLD, GERD, HTN, hypothyroidism admitted for sepsis due to PNA # sepsis due to bilateral PNA - WBC 32.7, tachycardic; LUISA due to dehydration not sepsis; LA normal; no hypotension - d#3 IV cefepime + azithromycin - BCx negative, trend PCT, WBCs improving # acute hypoxic RF due to PNA - resolved # acute-chronic anemia probably due to infection rather than blood loss - H+H improved appropriately to 3u pRBCs, Hb 6.5->9.3 - continue Fe repletion - check FOBT # LUISA - due to dehydration - resolved s/p IV fluids # G tube dysfunction - replaced in ED, back on tube feds # neck mass - followed by Dr Euceda; CT scan 01/21 showed soft tissue thickening extending from angle of left mandible poseriorly without discrete mass and inverval increase in size of level IA lymph node compared to prior imaging; bx of mass negative for malignancy but showed acute inflammatory exudate and necrosis consistent with abscess formation, negative for fungal organisms or malignancy; plan outpt PET scan; discuss with Dr Euceda # HTN - amlodipine held on admission due to sepsis, resume now # hypothyroidism - continue LT4 # COPD without acute exac - continue prn albuterol Trelegy # VTE ppx: LMWH # dispo: anticipate home eventually In my clinical judgment, the patient requires continued inpatient hospitalization for the following reasons: IV ABX Time Spent With Patient Time: Total time managing care of this patient today __40__ minutes. Quality Stroke Does the patient have a stroke diagnosis?: No VTE Prior VTE?: No VTE Risk Level:: Medical - moderate - high VTE Device Contraindication: Treatment Not Indicated VTE Drug Contraindication: N/A - Med Ordered
[2023-02-04] MEDS: guaiFENesin 100 MG/5 ML LIQUID 10 ML G-TUBE ×2 (14:27→23:51)
[2023-02-04 15:09] VITALS: BP 129/60; PULSE 105; RESP 18; TEMP 36.6; O2SAT 95
[2023-02-04] MEDS: Azithromycin 500 MG in 0.9 % Sodium Chloride 250 ML 125 MG IV (17:32)
[2023-02-04] MEDS: Enoxaparin Sodium 40 MG/0.4 ML SYRINGE SUBCUT (20:02)
[2023-02-04] MEDS: TiZANidine HCL 4 MG TABLET G-TUBE (20:02)
[2023-02-04] MEDS: Acetaminophen 325 MG TABLET 650 MG G-TUBE (20:02)
[2023-02-04 20:55] VITALS: PULSE 105; RESP 18; O2SAT 95
[2023-02-04] MEDS: Fluticasone Propionate 100 MCG BLST.W.DEV 2 PUFF INHALE (20:55)
[2023-02-04] MEDS: traMADoL HCL 50 MG TABLET G-TUBE (23:51)
[2023-02-05] VITALS (7 sets, daily range): BP systolic 98–131; BP diastolic 51–61; PULSE 91–103; RESP 16–18; TEMP 36.7–38.2; O2SAT 4–97
[2023-02-05] MEDS: Levothyroxine Sodium 75 MCG TABLET G-TUBE (06:10)
[2023-02-05] MEDS: Morphine Sulfate 2 MG/ML CARTRIDGE IVPUSH ×3 (06:10→19:08)
[2023-02-05] MEDS: Omeprazole 40 MG CAPSULE.DR PO (06:10)
[2023-02-05] MEDS: guaiFENesin 100 MG/5 ML LIQUID 10 ML G-TUBE ×3 (06:12→20:46)
[2023-02-05] MEDS: Acetaminophen 325 MG TABLET 650 MG G-TUBE ×2 (06:25→14:17)
[2023-02-05 06:42] LABS: Hematocrit 27.4 % (42.0-52.0); Hemoglobin 9.3 g/dl (14.0-18.0); Mean Corpuscular HGB Conc 33.9 g/dl (31.0-36.0); Mean Corpuscular Hemoglobin 32.3 pg (27.0-33.0); Mean Corpuscular Volume 95.1 fL (80.0-98.0); Mean Platelet Volume 10.6 fL (9.4-12.4); Platelet Count 502 X10*3/uL (160-400); Red Blood Count 2.88 X10*6/uL (4.60-5.80); Red Cell Distribution Width 16.1 % (11.0-16.0); White Blood Count 19.5 X10*3/uL (4.8-10.8)
[2023-02-05 07:03] LABS: Anion Gap 11 (12-20); Blood Urea Nitrogen 14 mg/dL (9-16); Calcium 7.9 mg/dL (8.4-10.2); Carbon Dioxide 24 mmol/L (22-29); Chloride 106 mmol/L (96-108); Creatinine Clr Calc Pharmacy 91.5; Estimated Glomerular Filt Rate > 60; Glucose Random 120 mg/dL (60-115); Potassium 3.8 mmol/L (3.3-5.1); Sodium 137 mmol/L (135-145)
[2023-02-05 07:18] LABS: Procalcitonin 0.73 ng/mL
[2023-02-05] MEDS: Cyanocobalamin (Vitamin B-12) 1,000 MCG TABLET 1000 MCG G-TUBE (08:15)
[2023-02-05] MEDS: Ferrous Sulfate 324 MG TABLET.DR PO (08:15)
[2023-02-05] MEDS: DULoxetine HCl 60 MG CAPSULE.DR PO (08:15)
[2023-02-05] MEDS: DULoxetine HCl 30 MG CAPSULE.DR PO (08:16)
[2023-02-05] MEDS: Gabapentin 400 MG CAPSULE G-TUBE ×3 (08:16→20:45)
[2023-02-05] MEDS: cefEPime HCl 2 GM in 0.9 % Sodium Chloride 50 ML IV ×2 (08:21→19:08)
[2023-02-05] MEDS: 0.9 % Sodium Chloride Flush 3 ML SYRINGE IVFLUSH ×2 (08:35→14:23)
[2023-02-05] MEDS: Fluticasone Propionate 100 MCG BLST.W.DEV 2 PUFF INHALE ×2 (08:46→19:54)
--- NOTE | 2023-02-05 12:05 | P.PNIM_ITS ---
Subjective Subjective Date of Service: 02/05/23 Interval History: febrile to 100.8 this am, complains of some neck discomfort, still coughing Review of Systems Review of Systems: Yes all other systems are reviewed and are negative Physical Exam Vital Signs: Vital Signs: Last Vital Signs Temp 98.7 F 02/05/23 08:00 Pulse 103 H 02/05/23 08:47 Resp 18 02/05/23 08:47 BP 98/51 L 02/05/23 08:00 Pulse Ox 93 02/05/23 08:00 O2 Del Method Room Air 02/05/23 08:00 BMI result Body Mass Index 20.7 Gen: in no acute distress, thin HEENT: sclera anicteric, moist mucus membranes Neck: supple Lungs: diminished bilaterally Heart: regular rate and rhythm, no murmurs Abd: soft, non-tender, non-distended, G tube in place Ext: no edema Skin: warm/well-perfused Neuro: alert and oriented x3, no focal findings Psych: appropriate affect Objective Data Active Medications Acetaminophen (Acetaminophen 325 Mg Tablet) 650 mg G-TUBE Q6H PRN PRN Reason: Pain, Mild (Pain Scale 1-3) Last Admin: 02/05/23 06:25 Dose: 650 mg Documented By: ROHAN Albuterol Sulfate (Albuterol Sulfate 90 Mcg 8 Gm Inhaler) 2 puff INHALE Q4H PRN PRN Reason: for dyspnea Amlodipine Besylate (Amlodipine Besylate 2.5 Mg Tablet) 2.5 mg PO DAILY [facility]; Protocol Last Admin: 02/05/23 09:24 Dose: Not Given Documented By: ADRIANA Non-Admin Reason: Decreased Blood Pressure Cyanocobalamin (Cyanocobalamin (Vitamin B-12) 1,000 Mcg Tablet) 1,000 mcg G- TUBE DAILY [facility] Last Admin: 02/05/23 08:15 Dose: 1,000 mcg Documented By: ALEXIS Duloxetine HCl (Duloxetine Hcl 30 Mg Capsule.) 30 mg PO DAILY [facility] Last Admin: 02/05/23 08:16 Dose: 30 mg Documented By: ALEXIS Duloxetine HCl (Duloxetine Hcl 60 Mg Capsule.) 60 mg PO DAILY [facility] Last Admin: 02/05/23 08:15 Dose: 60 mg Documented By: ALEXIS Enoxaparin Sodium (Enoxaparin Sodium 40 Mg/0.4 Ml Syringe) 40 mg SUBCUT Q24H [facility] Last Admin: 02/04/23 20:02 Dose: 40 mg Documented By: ROHAN Ferrous Sulfate (Ferrous Sulfate 324 Mg Tablet.) 324 mg PO DAILY [facility] Last Admin: 02/05/23 08:15 Dose: 324 mg Documented By: ALEXIS Fluticasone Propionate (Fluticasone Propionate 100 Mcg Blst.W.Dev) 2 puff INHALE RBID [facility] Last Admin: 02/05/23 08:46 Dose: 2 puff Documented By: SINGH Fluticasone Propionate (Fluticasone Propionate Nasal 16 Gm [place]) 1 spray NOSTRIL-B DAILY [facility] Last Admin: 02/05/23 09:24 Dose: Not Given Documented By: ADRIANA Non-Admin Reason: Med Not Available Gabapentin (Gabapentin 400 Mg Capsule) 400 mg G-TUBE TID [facility] Last Admin: 02/05/23 08:16 Dose: 400 mg Documented By: ALEXIS Guaifenesin (Guaifenesin 100 Mg/5 Ml Liquid) 10 ml G-TUBE Q4H PRN PRN Reason: Cough Last Admin: 02/05/23 06:12 Dose: 10 ml Documented By: ROHAN Cefepime HCl 2 gm/ Sodium (Chloride) 50 mls @ 100 mls/hr IV Q12H [facility] Last Infusion: 02/05/23 09:24 Dose: 0 mls/hr Documented By: ADRIANA Levothyroxine Sodium (Levothyroxine Sodium 75 Mcg Tablet) 75 mcg G-TUBE DAILY@0600 [facility] Last Admin: 02/05/23 06:10 Dose: 75 mcg Documented By: ROHAN Morphine Sulfate (Morphine Sulfate 2 Mg/Ml Cartridge) 2 mg IVPUSH Q4H PRN; Protocol PRN Reason: Pain, Mild (Pain Scale 1-3) Last Admin: 02/05/23 10:20 Dose: 2 mg Documented By: ADRIANA Non-Formulary Medication (Levocetirizine) 1 tab PO BEDTIME [facility] Non-Formulary Medication (Umeclidinium-Vilanterol [Anoro Ellipta]) 1 inhalation INHALE DAILY [facility] Omeprazole (Omeprazole 40 Mg Capsule.) 40 mg PO DAILY@0630 [facility] Last Admin: 02/05/23 06:10 Dose: 40 mg Documented By: ROHAN Ondansetron HCl (Ondansetron Hcl 4 Mg/2 Ml Vial) 4 mg IVPUSH Q8H PRN PRN Reason: Nausea and Vomiting Last Admin: 02/03/23 15:31 Dose: 4 mg Documented By: ADRIANA Pharmacy Consult (Consult Rx Perform Med Rec) 1 each MISCELLANE ONCE PRN PRN Reason: Consult order Sodium Chloride (0.9 % Sodium Chloride Flush 3 Ml Syringe) 3 ml IVFLUSH QSHIFT [facility] Last Admin: 02/05/23 08:35 Dose: 3 ml Documented By: ALEXIS Tizanidine HCl (Tizanidine Hcl 4 Mg Tablet) 4 mg G-TUBE BEDTIME [facility] Last Admin: 02/04/23 20:02 Dose: 4 mg Documented By: ROHAN Tramadol HCl (Tramadol Hcl 50 Mg Tablet) 50 mg G-TUBE TID PRN PRN Reason: Pain, Moderate (Pain Scale 4-6 Last Admin: 02/04/23 23:51 Dose: 50 mg Documented By: ROHAN Triamcinolone Acetonide (Triamcinolone Acet 0.5 % Cream 15 Gm Tube) 1 appl TOPICAL BID [facility]; Protocol Last Admin: 02/05/23 09:24 Dose: Not Given Documented By: ADRIANA Non-Admin Reason: pt states no rash Labs 02/05/23 05:53 02/05/23 05:53 Labs: Laboratory Results - last 24 hr 02/05/23 02/05/23 05:53 05:53 MCV 95.1 MCH 32.3 MCHC 33.9 RDW 16.1 H Plt Count 502 H MPV 10.6 Absolute Nucleated RBC 0.000 Nucleated RBC % (auto) 0.0 Anion Gap 11 L Estim Creat Clear Calc 91.5 Estimated GFR > 60 Random Glucose 120 H Calcium 7.9 L Procalcitonin 0.73 Microbiology Microbiology Results: Microbiology 02/02/23 17:19 Blood Culture - Preliminary Blood - Venous No growth after 48 hours. 02/02/23 17:19 Blood Culture - Preliminary Blood - Venous No growth after 48 hours. Assessment and Plan (1) Gastrostomy tube dysfunction: Status: Acute Plan d#4 72yo M with throat CA in 2002 s/p XRT with resultant esophageal strictures and G-tube placement for all feeding, COPD, depression, HLD, GERD, HTN, hypothyro idism admitted for sepsis due to PNA # sepsis due to bilateral PNA - WBC 32.7 (now 19.5), tachycardic; LUISA due to dehydration not sepsis; LA normal; no hypotension - d#4 IV cefepime + azithromycin - BCx negative, trend PCT, WBCs improving # neck mass - followed by Dr Euceda; CT scan 01/21 showed soft tissue thickening extending from angle of left mandible poseriorly without discrete mass and inverval increase in size of level IA lymph node compared to prior imaging; bx of mass negative for malignancy but showed acute inflammatory exudate and necrosis consistent with abscess formation, negative for fungal organisms or malignancy; was planned for outpt PET scan - will consult Heme-Onc and repeat CT scan to see if mass has enlarged # acute hypoxic RF due to PNA - resolved # acute-chronic anemia probably due to infection rather than blood loss - H+H improved appropriately to 3u pRBCs, Hb 6.5->9.3 - continue Fe repletion - check FOBT # LUISA - due to dehydration - resolved s/p IV fluids # G tube dysfunction - replaced in ED, back on tube feds # HTN - amlodipine held on admission due to sepsis, resume now # hypothyroidism - continue LT4 # COPD without acute exac - continue prn albuterol, Trelegy # VTE ppx: LMWH # dispo: anticipate home eventually In my clinical judgment, the patient requires continued inpatient hospitalization for the following reasons: IV ABX, fever Time Spent With Patient Time: Total time managing care of this patient today 45____ minutes. Quality Stroke Does the patient have a stroke diagnosis?: No VTE Prior VTE?: No VTE Risk Level:: Medical - moderate - high VTE Device Contraindication: Treatment Not Indicated VTE Drug Contraindication: N/A - Med Ordered
[2023-02-05] MEDS: iohexoL 350 MG/ML 100 ML INFUS..BTL IV (14:22)
[2023-02-05] MEDS: Enoxaparin Sodium 40 MG/0.4 ML SYRINGE SUBCUT (19:09)
[2023-02-05] MEDS: traMADoL HCL 50 MG TABLET G-TUBE (20:45)
[2023-02-05] MEDS: TiZANidine HCL 4 MG TABLET G-TUBE (20:45)
[2023-02-06] VITALS (10 sets, daily range): BP systolic 102–121; BP diastolic 52–60; PULSE 81–108; RESP 16–20; TEMP 36.8–38; O2SAT 92–95
[2023-02-06] MEDS: Acetaminophen 325 MG TABLET 650 MG G-TUBE ×4 (00:26→23:52)
[2023-02-06] MEDS: guaiFENesin 100 MG/5 ML LIQUID 10 ML G-TUBE ×6 (00:26→23:51)
[2023-02-06] MEDS: 0.9 % Sodium Chloride Flush 3 ML SYRINGE IVFLUSH ×4 (01:42→21:11)
[2023-02-06] MEDS: Morphine Sulfate 2 MG/ML CARTRIDGE IVPUSH ×5 (02:33→21:06)
[2023-02-06] MEDS: traMADoL HCL 50 MG TABLET G-TUBE ×3 (05:41→21:11)
[2023-02-06] MEDS: Levothyroxine Sodium 75 MCG TABLET G-TUBE (05:41)
[2023-02-06] MEDS: Omeprazole 40 MG CAPSULE.DR PO (05:41)
[2023-02-06 07:27] LABS: Hematocrit 23.5 % (42.0-52.0); Hemoglobin 7.9 g/dl (14.0-18.0); Mean Corpuscular HGB Conc 33.6 g/dl (31.0-36.0); Mean Corpuscular Hemoglobin 32.2 pg (27.0-33.0); Mean Corpuscular Volume 95.9 fL (80.0-98.0); Mean Platelet Volume 10.3 fL (9.4-12.4); Platelet Count 478 X10*3/uL (160-400); Red Blood Count 2.45 X10*6/uL (4.60-5.80); Red Cell Distribution Width 16.1 % (11.0-16.0); White Blood Count 17.4 X10*3/uL (4.8-10.8)
[2023-02-06] MEDS: Fluticasone Propionate 100 MCG BLST.W.DEV 2 PUFF INHALE ×2 (08:07→20:57)
[2023-02-06] MEDS: amLODIPine Besylate 2.5 MG TABLET PO (08:19)
[2023-02-06] MEDS: DULoxetine HCl 60 MG CAPSULE.DR PO (08:19)
[2023-02-06] MEDS: Gabapentin 400 MG CAPSULE G-TUBE ×3 (08:19→21:11)
[2023-02-06] MEDS: Cyanocobalamin (Vitamin B-12) 1,000 MCG TABLET 1000 MCG G-TUBE (08:19)
[2023-02-06] MEDS: cefEPime HCl 2 GM in 0.9 % Sodium Chloride 50 ML IV ×2 (08:20→21:08)
[2023-02-06] MEDS: Ferrous Sulfate 324 MG TABLET.DR PO (08:20)
[2023-02-06] MEDS: DULoxetine HCl 30 MG CAPSULE.DR PO (08:20)
[2023-02-06 08:35] LABS: Anion Gap 14 (12-20); Blood Urea Nitrogen 12 mg/dL (9-16); Calcium 8.1 mg/dL (8.4-10.2); Carbon Dioxide 24 mmol/L (22-29); Chloride 104 mmol/L (96-108); Creatinine Clr Calc Pharmacy 88.6; Estimated Glomerular Filt Rate > 60; Glucose Random 98 mg/dL (60-115); Potassium 3.9 mmol/L (3.3-5.1); Sodium 138 mmol/L (135-145)
[2023-02-06 08:51] LABS: Procalcitonin 0.73 ng/mL
--- NOTE | 2023-02-06 11:47 | HO.PM.IMPN ---
Subjective Subjective Date of Service: 02/06/23 Interval History: coughing neck pain no fever since yesterday morning Physical Exam Vital Signs: Vital Signs: Last Vital Signs Temp 99.2 F 02/06/23 09:43 Pulse 86 02/06/23 08:07 Resp 18 02/06/23 08:20 BP 114/56 L 02/06/23 07:45 Pulse Ox 92 02/06/23 07:45 O2 Del Method Room Air 02/06/23 07:45 BMI result Body Mass Index 20.7 Gen: in no acute d istress, thin HEEN T: sclera anicteri c, moist mucus mem branes Neck: suppl e Lungs: diminishe d bilaterally Hear t: regular rate an d rhythm, no murmu rs Abd: soft, non- tender, non-disten ded, G tube in joelle ce Ext: no edema S kin: warm/well-per fused Neuro: alert and oriented x3, no focal findings Psych: appropriate affect Objective Data Active Medications Acetaminophen (Acetaminophen 325 Mg Tablet) 650 mg G-TUBE Q6H PRN PRN Reason: Pain, Mild (Pain Scale 1-3) Last Admin: 02/06/23 08:20 Dose: 650 mg Documented By: COTEMA Albuterol Sulfate (Albuterol Sulfate 90 Mcg 8 Gm Inhaler) 2 puff INHALE Q4H PRN PRN Reason: for dyspnea Amlodipine Besylate (Amlodipine Besylate 2.5 Mg Tablet) 2.5 mg PO DAILY [facility]; Protocol Last Admin: 02/06/23 08:19 Dose: 2.5 mg Documented By: COTEMA Cyanocobalamin (Cyanocobalamin (Vitamin B-12) 1,000 Mcg Tablet) 1,000 mcg G-TUBE DAILY [facility] Last Admin: 02/06/23 08:19 Dose: 1,000 mcg Documented By: COTEMA Duloxetine HCl (Duloxetine Hcl 30 Mg Capsule.) 30 mg PO DAILY [facility] Last Admin: 02/06/23 08:20 Dose: 30 mg Documented By: COTEMA Duloxetine HCl (Duloxetine Hcl 60 Mg Capsule.) 60 mg PO DAILY [facility] Last Admin: 02/06/23 08:19 Dose: 60 mg Documented By: COTEMA Enoxaparin Sodium (Enoxaparin Sodium 40 Mg/0.4 Ml Syringe) 40 mg SUBCUT Q24H [facility] Last Admin: 02/05/23 19:09 Dose: 40 mg Documented By: ROHAN Ferrous Sulfate (Ferrous Sulfate 324 Mg Tablet.) 324 mg PO DAILY [facility] Last Admin: 02/06/23 08:20 Dose: 324 mg Documented By: HAYLEE Fluticasone Propionate (Fluticasone Propionate 100 Mcg Blst.W.Dev) 2 puff INHALE RBID [facility] Last Admin: 02/06/23 08:07 Dose: 2 puff Documented By: LETTY Fluticasone Propionate (Fluticasone Propionate Nasal 16 Gm [place]) 1 spray NOSTRIL-B DAILY [facility] Last Admin: 02/06/23 08:38 Dose: Not Given Documented By: HAYLEE Non-Admin Reason: Med Not Available Gabapentin (Gabapentin 400 Mg Capsule) 400 mg G-TUBE TID [facility] Last Admin: 02/06/23 08:19 Dose: 400 mg Documented By: KEVINEMA Guaifenesin (Guaifenesin 100 Mg/5 Ml Liquid) 10 ml G-TUBE Q4H PRN PRN Reason: Cough Last Admin: 02/06/23 09:59 Dose: 10 ml Documented By: HAYLEE Cefepime HCl 2 gm/ Sodium (Chloride) 50 mls @ 100 mls/hr IV Q12H [facility] Last Infusion: 02/06/23 08:57 Dose: 0 mls/hr Documented By: HAYLEE Levothyroxine Sodium (Levothyroxine Sodium 75 Mcg Tablet) 75 mcg G-TUBE DAILY@0600 [facility] Last Admin: 02/06/23 05:41 Dose: 75 mcg Documented By: ROHAN Morphine Sulfate (Morphine Sulfate 2 Mg/Ml Cartridge) 2 mg IVPUSH Q4H PRN; Protocol PRN Reason: Pain, Mild (Pain Scale 1-3) Last Admin: 02/06/23 08:20 Dose: 2 mg Documented By: KEVINEMA Non-Formulary Medication (Levocetirizine) 1 tab PO BEDTIME [facility] Non-Formulary Medication (Umeclidinium-Vilanterol [Anoro Ellipta]) 1 inhalation INHALE DAILY [facility] Omeprazole (Omeprazole 40 Mg Capsule.) 40 mg PO DAILY@0630 [facility] Last Admin: 02/06/23 05:41 Dose: 40 mg Documented By: ROHAN Ondansetron HCl (Ondansetron Hcl 4 Mg/2 Ml Vial) 4 mg IVPUSH Q8H PRN PRN Reason: Nausea and Vomiting Last Admin: 02/03/23 15:31 Dose: 4 mg Documented By: ADRIANA Pharmacy Consult (Consult Rx Perform Med Rec) 1 each MISCELLANE ONCE PRN PRN Reason: Consult order Sodium Chloride (0.9 % Sodium Chloride Flush 3 Ml Syringe) 3 ml IVFLUSH QSHIFT [facility] Last Admin: 02/06/23 08:20 Dose: 3 ml Documented By: HAYLEE Tizanidine HCl (Tizanidine Hcl 4 Mg Tablet) 4 mg G-TUBE BEDTIME [facility] Last Admin: 02/05/23 20:45 Dose: 4 mg Documented By: ROHAN Tramadol HCl (Tramadol Hcl 50 Mg Tablet) 50 mg G-TUBE TID PRN PRN Reason: Pain, Moderate (Pain Scale 4-6 Last Admin: 02/06/23 05:41 Dose: 50 mg Documented By: ROHAN Triamcinolone Acetonide (Triamcinolone Acet 0.5 % Cream 15 Gm Tube) 1 appl TOPICAL BID [facility]; Protocol Last Admin: 02/06/23 08:38 Dose: Not Given Documented By: HAYLEE Non-Admin Reason: pt states no rash Labs 02/06/23 05:32 02/06/23 05:32 Labs: Laboratory Results - last 24 hr 02/06/23 02/06/23 05:32 05:32 MCV 95.9 MCH 32.2 MCHC 33.6 RDW 16.1 H Plt Count 478 H MPV 10.3 Absolute Nucleated RBC 0.000 Nucleated RBC % (auto) 0.0 Anion Gap 14 Estim Creat Clear Calc 88.6 Estimated GFR > 60 Random Glucose 98 Calcium 8.1 L Procalcitonin 0.73 Impressions Soft Tissue Neck CT 02/05/23 14:20 IMPRESSION: - There is new extensive consolidation within the lungs bilaterally when compared to the previous neck CT concerning for multifocal pneumonia. - Previously seen stranding and soft tissue thickening along the periphery of the left submandibular gland as well as thickening of the left platysma muscle are mildly improved when compared to the 01/21/2023 CT. There is decreased reticulation within the adjacent subcutaneous fat. No peripherally enhancing fluid collections. There is a stable level 1A lymph node measuring up to 1.1 cm. As discussed on the prior study, a PET/CT could be obtained for further assessment given the patient's known history of malignancy. - Stable fatty replacement of the parotid glands and the submandibular glands with stable heterogeneous soft tissue density within portions of the left submandibular gland that remains nonspecific. - There is soft tissue thickening within the carotid space bilaterally and within the retropharyngeal space that is most likely posttreatment related and that remains stable. Microbiology Microbiology Results: Microbiology 02/05/23 08:20 Blood Culture - Preliminary Blood - Venous No growth after 24 hours. 02/05/23 08:20 Blood Culture - Preliminary Blood - Venous No growth after 24 hours. Assessment and Plan (1) Gastrostomy tube dysfunction: Status: Acute Plan d#5 72yo M with throat CA in 2002 s/p XRT with resultant esophageal strictures and G-tube placement for all feeding, COPD, depression, HLD, GERD, HTN, hypothyroidism admitted for sepsis due to PNA # sepsis due to bilateral PNA - WBC 32.7 (now 17.4), tachycardic; LUISA due to dehydration not sepsis; LA normal; no hypotension - d#5 IV cefepime + azithromycin - BCx negative, trend PCT, WBCs improving # neck mass - followed by Dr Euceda; CT scan 01/21 showed soft tissue thickening extending from angle of left mandible poseriorly without discrete mass and inverval increase in size of level IA lymph node compared to prior imaging; bx of mass negative for malignancy but showed acute inflammatory exudate and necrosis consistent with abscess formation, negative for fungal organisms or malignancy; was planned for outpt PET scan - will consult pt's oncologist Dr Romero interiano left neck mass # acute hypoxic RF due to PNA - resolved # acute-chronic anemia probably due to infection rather than blood loss - H+H improved appropriately to 3u pRBCs, Hb 6.5->9.3->7.9 - continue Fe repletion - check FOBT - monitor H+H # LUISA - due to dehydration - resolved s/p IV fluids # G tube dysfunction - replaced in ED, back on tube feds # HTN - amlodipine held on admission due to sepsis, resumed # hypothyroidism - continue LT4 # COPD without acute exac - continue prn albuterol, Trelegy # VTE ppx: LMWH # dispo: anticipate home eventually In my clinical judgment, the patient requires continued inpatient hospitalization for the following reasons: IV ABX, fever Time Spent With Patient Time: Total time managing care of this patient today __40 __ minutes. Quality Stroke Does the patient have a stroke diagnosis?: No VTE Prior VTE?: No VTE Risk Level:: Medical - moderate - high VTE Device Contraindication: Treatment Not Indicated VTE Drug Contraindication: N/A - Med Ordered
--- NOTE | 2023-02-06 14:09 | MHC.CLN ---
F/U TOLERATING CURRENT TUBE FEEDING AT MAX GOAL RATE. PT REQUIRES TF FOR 100% NUTRITION SUPPORT. TF JEVITY 1.0 AT MAX GOAL RATE 70ML/HR WITH 120ML FWF Q 6HRS TO PROVIDE 1780KCALS (30KCALS/KG), 74G PROTEIN (1.2G/KG), 1883ML TOTAL WATER FROM FORMULA AND FLUSHES (31ML/KG). MONITOR TOLERANCE, RESIDUALS AND LYTES.
--- NOTE | 2023-02-06 14:57 | MHC.CM.PN ---
EMR REVIEWED AND PER MD ROUNDS,PT NOT MEDICALLY CLEARED FOR DC (IV ABT, FEVER) CM WILL CONTINUE TO FOLLOW FOR DC NEEDS/PLAN
[2023-02-06] MEDS: Enoxaparin Sodium 40 MG/0.4 ML SYRINGE SUBCUT (21:10)
[2023-02-06] MEDS: TiZANidine HCL 4 MG TABLET G-TUBE (21:11)
[2023-02-07] VITALS (9 sets, daily range): BP systolic 98–126; BP diastolic 53–65; PULSE 75–112; RESP 16–20; TEMP 36.2–37.5; O2SAT 92–99
[2023-02-07] MEDS: Morphine Sulfate 2 MG/ML CARTRIDGE IVPUSH ×5 (00:41→20:16)
[2023-02-07] MEDS: guaiFENesin 100 MG/5 ML LIQUID 10 ML G-TUBE ×4 (05:02→20:17)
[2023-02-07] MEDS: Levothyroxine Sodium 75 MCG TABLET G-TUBE (05:02)
[2023-02-07] MEDS: Omeprazole 40 MG CAPSULE.DR PO (05:02)
[2023-02-07 06:28] LABS: Hematocrit 21.9 % (42.0-52.0); Hemoglobin 7.4 g/dl (14.0-18.0); Mean Corpuscular HGB Conc 33.8 g/dl (31.0-36.0); Mean Corpuscular Hemoglobin 32.5 pg (27.0-33.0); Mean Corpuscular Volume 96.1 fL (80.0-98.0); Mean Platelet Volume 10.5 fL (9.4-12.4); Platelet Count 449 X10*3/uL (160-400); Red Blood Count 2.28 X10*6/uL (4.60-5.80); Red Cell Distribution Width 15.8 % (11.0-16.0); White Blood Count 14.7 X10*3/uL (4.8-10.8)
[2023-02-07 07:09] LABS: Anion Gap 11 (12-20); Blood Urea Nitrogen 13 mg/dL (9-16); Calcium 7.6 mg/dL (8.4-10.2); Carbon Dioxide 24 mmol/L (22-29); Chloride 104 mmol/L (96-108); Creatinine Clr Calc Pharmacy 97.8; Estimated Glomerular Filt Rate > 60; Glucose Random 89 mg/dL (60-115); Sodium 135 mmol/L (135-145)
[2023-02-07] MEDS: Fluticasone Propionate 100 MCG BLST.W.DEV 2 PUFF INHALE ×2 (07:57→20:04)
--- NOTE | 2023-02-07 09:22 | P.PNIM_ITS ---
Subjective Subjective Date of Service: 02/07/23 Interval History: coughing improved L neck pain/swelling last fever 100.4 yesterday at 0745 Review of Systems Review of Systems: Yes all other systems are reviewed and are negative Physical Exam Vital Signs: Vital Signs: Last Vital Signs Temp 99.5 F 02/07/23 08:00 Pulse 112 H 02/07/23 08:00 Resp 16 02/07/23 08:00 BP 124/58 L 02/07/23 08:00 Pulse Ox 92 02/07/23 08:00 O2 Del Method Room Air 02/07/23 08:00 BMI result Body Mass Index 20.7 Gen: in no acute d istress, thin HEEN T: sclera anicteri c, moist mucus mem branes Neck: radia tion changes/scarr ing Lungs: diminis hed bilaterally He art: regular rate and rhythm, no mur murs Abd: soft, no n-tender, non-dist ended, G tube in p lace Ext: no edema Skin: warm/well-p erfused Neuro: louisa rt and oriented x3 , no focal finding s Psych: appropria te affect Objective Data Active Medications Acetaminophen (Acetaminophen 325 Mg Tablet) 650 mg G-TUBE Q6H PRN PRN Reason: Pain, Mild (Pain Scale 1-3) Last Admin: 02/06/23 23:52 Dose: 650 mg Documented By: WARD Albuterol Sulfate (Albuterol Sulfate 90 Mcg 8 Gm Inhaler) 2 puff INHALE Q4H PRN PRN Reason: for dyspnea Amlodipine Besylate (Amlodipine Besylate 2.5 Mg Tablet) 2.5 mg PO DAILY [facility]; Protocol Last Admin: 02/06/23 08:19 Dose: 2.5 mg Documented By: HAYLEE Cyanocobalamin (Cyanocobalamin (Vitamin B-12) 1,000 Mcg Tablet) 1,000 mcg G- TUBE DAILY [facility] Last Admin: 02/06/23 08:19 Dose: 1,000 mcg Documented By: HAYLEE Duloxetine HCl (Duloxetine Hcl 30 Mg Capsule.) 30 mg PO DAILY [facility] Last Admin: 02/06/23 08:20 Dose: 30 mg Documented By: COTEMA Duloxetine HCl (Duloxetine Hcl 60 Mg Capsule.) 60 mg PO DAILY [facility] Last Admin: 02/06/23 08:19 Dose: 60 mg Documented By: HAYLEE Enoxaparin Sodium (Enoxaparin Sodium 40 Mg/0.4 Ml Syringe) 40 mg SUBCUT Q24H [facility] Last Admin: 02/06/23 21:10 Dose: 40 mg Documented By: WARD Ferrous Sulfate (Ferrous Sulfate 324 Mg Tablet.) 324 mg PO DAILY [facility] Last Admin: 02/06/23 08:20 Dose: 324 mg Documented By: HAYLEE Fluticasone Propionate (Fluticasone Propionate 100 Mcg Blst.W.Dev) 2 puff INHALE RBID [facility] Last Admin: 02/07/23 07:57 Dose: 2 puff Documented By: BRAD Fluticasone Propionate (Fluticasone Propionate Nasal 16 Gm [place]) 1 spray NOSTRIL-B DAILY [facility] Last Admin: 02/06/23 08:38 Dose: Not Given Documented By: HAYLEE Non-Admin Reason: Med Not Available Gabapentin (Gabapentin 400 Mg Capsule) 400 mg G-TUBE TID [facility] Last Admin: 02/06/23 21:11 Dose: 400 mg Documented By: WARD Guaifenesin (Guaifenesin 100 Mg/5 Ml Liquid) 10 ml G-TUBE Q4H PRN PRN Reason: Cough Last Admin: 02/07/23 05:02 Dose: 10 ml Documented By: WARD Cefepime HCl 2 gm/ Sodium (Chloride) 50 mls @ 100 mls/hr IV Q12H [facility] Last Infusion: 02/06/23 21:43 Dose: 0 mls/hr Documented By: WARD Levothyroxine Sodium (Levothyroxine Sodium 75 Mcg Tablet) 75 mcg G-TUBE DAILY@0600 [facility] Last Admin: 02/07/23 05:02 Dose: 75 mcg Documented By: WARD Morphine Sulfate (Morphine Sulfate 2 Mg/Ml Cartridge) 2 mg IVPUSH Q4H PRN; Protocol PRN Reason: Pain, Mild (Pain Scale 1-3) Last Admin: 02/07/23 05:02 Dose: 2 mg Documented By: WARD Non-Formulary Medication (Levocetirizine) 1 tab PO BEDTIME [facility] Non-Formulary Medication (Umeclidinium-Vilanterol [Anoro Ellipta]) 1 inhalation INHALE DAILY [facility] Omeprazole (Omeprazole 40 Mg Capsule.Dr) 40 mg PO DAILY@0630 [facility] Last Admin: 02/07/23 05:02 Dose: 40 mg Documented By: WARD Ondansetron HCl (Ondansetron Hcl 4 Mg/2 Ml Vial) 4 mg IVPUSH Q8H PRN PRN Reason: Nausea and Vomiting Last Admin: 02/03/23 15:31 Dose: 4 mg Documented By: ADRIANA Pharmacy Consult (Consult Rx Perform Med Rec) 1 each MISCELLANE ONCE PRN PRN Reason: Consult order Sodium Chloride (0.9 % Sodium Chloride Flush 3 Ml Syringe) 3 ml IVFLUSH QSHIFT [facility] Last Admin: 02/06/23 21:11 Dose: 3 ml Documented By: WARD Tizanidine HCl (Tizanidine Hcl 4 Mg Tablet) 4 mg G-TUBE BEDTIME [facility] Last Admin: 02/06/23 21:11 Dose: 4 mg Documented By: WARD Tramadol HCl (Tramadol Hcl 50 Mg Tablet) 50 mg G-TUBE TID PRN PRN Reason: Pain, Moderate (Pain Scale 4-6 Last Admin: 02/06/23 21:11 Dose: 50 mg Documented By: WARD Triamcinolone Acetonide (Triamcinolone Acet 0.5 % Cream 15 Gm Tube) 1 appl TOPICAL BID [facility]; Protocol Last Admin: 02/06/23 21:12 Dose: Not Given Documented By: WARD Non-Admin Reason: Patient Refused Labs 02/07/23 05:48 02/07/23 05:48 Labs: Laboratory Results - last 24 hr 02/07/23 02/07/23 05:48 05:48 MCV 96.1 MCH 32.5 MCHC 33.8 RDW 15.8 Plt Count 449 H MPV 10.5 Absolute Nucleated RBC 0.000 Nucleated RBC % (auto) 0.0 Anion Gap 11 L Estim Creat Clear Calc 97.8 Estimated GFR > 60 Random Glucose 89 Calcium 7.6 L D Microbiology Microbiology Results: Microbiology 02/05/23 08:20 Blood Culture - Preliminary Blood - Venous No growth after 24 hours. 02/05/23 08:20 Blood Culture - Preliminary Blood - Venous No growth after 24 hours. Assessment and Plan (1) Gastrostomy tube dysfunction: Status: Acute Plan d#6 72yo M with throat CA in 2002 s/p XRT with resultant esophageal strictures and G-tube placement for all feeding, COPD, depression, HLD, GERD, HTN, hypothyroidism admitted for sepsis due to PNA # sepsis due to bilateral PNA - WBC 32.7 (now 14.7), tachycardic; LUISA due to dehydration not sepsis; LA normal; no hypotension - d#6 IV cefepime + azithromycin, completed azithromycin x3d - BCx negative, trend PCT, WBCs improving # neck mass - followed by Dr Euceda; CT scan 01/21 showed soft tissue thickening extending from angle of left mandible poseriorly without discrete mass and inverval increase in size of level IA lymph node compared to prior imaging; bx of mass negative for malignancy but showed acute inflammatory exudate and necrosis consistent with abscess formation, negative for fungal organisms or malignancy; was planned for outpt PET scan - will consult pt's oncologist Dr Romero interiano left neck mass # acute hypoxic RF due to PNA - resolved # acute-chronic anemia probably due to infection rather than blood loss - H+H improved appropriately to 3u pRBCs, Hb 6.5->9.3->7.9->7.4 - continue Fe repletion - check FOBT - monitor H+H, T+S tomorrow # LUISA - due to dehydration - resolved s/p IV fluids # G tube dysfunction - replaced in ED, back on tube feds # HTN - amlodipine held on admission due to sepsis, resumed # hypothyroidism - continue LT4 # COPD without acute exac - continue prn albuterol, Trelegy # VTE ppx: LMWH # dispo: anticipate home eventually In my clinical judgment, the patient requires continued inpatient hospitalization for the following reasons: IV ABX, fever, anemia Time Spent With Patient Time: Total time managing care of this patient today 40____ minutes. Quality Stroke Does the patient have a stroke diagnosis?: No VTE Prior VTE?: No VTE Risk Level:: Medical - moderate - high VTE Device Contraindication: Treatment Not Indicated VTE Drug Contraindication: N/A - Med Ordered
[2023-02-07] MEDS: traMADoL HCL 50 MG TABLET G-TUBE ×2 (09:40→17:36)
[2023-02-07] MEDS: Gabapentin 400 MG CAPSULE G-TUBE ×3 (09:40→20:17)
[2023-02-07] MEDS: Ferrous Sulfate 324 MG TABLET.DR PO (09:40)
[2023-02-07] MEDS: DULoxetine HCl 30 MG CAPSULE.DR PO (09:40)
[2023-02-07] MEDS: Cyanocobalamin (Vitamin B-12) 1,000 MCG TABLET 1000 MCG G-TUBE (09:40)
[2023-02-07] MEDS: DULoxetine HCl 60 MG CAPSULE.DR PO (09:40)
[2023-02-07] MEDS: cefEPime HCl 2 GM in 0.9 % Sodium Chloride 50 ML IV ×2 (09:41→20:30)
[2023-02-07] MEDS: Acetaminophen 325 MG TABLET 650 MG G-TUBE ×2 (09:41→15:20)
[2023-02-07] MEDS: amLODIPine Besylate 2.5 MG TABLET PO (09:41)
[2023-02-07] MEDS: 0.9 % Sodium Chloride Flush 3 ML SYRINGE IVFLUSH ×3 (09:42→20:18)
--- NOTE | 2023-02-07 13:40 | PM.HEMONCCN ---
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 He has not relapsed to date. 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 He has required a G-tube for nutrition. Recently he noted a soft and fluctant mass in the upper left neck just below the mandible. A biopsy was negative for malignancy. He now has pneumonia. If malignancy is detected in the neck it is likely a new primary given the duration of his remission. Review of Systems - Constitutional Reports anorexia - ENT Reports sore throat Comments: thickening of the skin of the neck and marked trismus edentulous - Cardiovascular Reports shortness of breath with activity - Respiratory Reports dyspnea on exertion - Gastrointestinal Reports bloating - Genitourinary Genitourinary: Reports urinary frequency - Musculoskeletal Reports decreased muscle mass - Neurologic Reports weakness PMFSH Medical History: Medical History (Last Reviewed 02/02/23 @ 19:44 by SALVADOR Shah) Anemia Aortic aneurysm Arthritis Back pain Cancer COPD (chronic obstructive pulmonary disease) COVID-19 Depression Difficulty swallowing Elevated cholesterol Esophageal stricture GERD (gastroesophageal reflux disease) History of chemotherapy History of epistaxis HTN (hypertension) Hx of radiation therapy Lumbar radiculitis Normocytic anemia Osteoarthritis of left shoulder Pain around PEG tube site Post laminectomy syndrome Pulmonary nodule Thyroid disease Uses feeding tube Family History: Family History (Last Reviewed 02/02/23 @ 19:44 by SALVADOR Shah) Father Brain cancer Mother CVD (cardiovascular disease) Maternal Aunt Diabetes Surgical History: Surgical History (Last Reviewed 02/02/23 @ 19:44 by SALVADOR Shah) H/O colonoscopy History of back surgery History of esophagogastroduodenoscopy (EGD) History of nasal surgery History of transurethral resection of prostate Social History: Social History (Last Reviewed 02/02/23 @ 19:44 by SALVADOR Shah) Living Situation History: Household Members: Family Household Members Other:: 3 Housing: Apartment Do you presently have visiting nurse or other home services: No Do you presently have visiting nurse or other home services comment: Daughter is pt's FAMILY READINESS SUPPORT ASSISTANT Tobacco History: Patient Tobacco Use Status: Former Tobacco user Tobacco use type: Cigarette Cigarette Packs Per Day: 3 Years Smoked: 25 Smoke Quit Date: 40 years ago e-Cigarette/Vaping Use: Never Used Second Hand Smoke Exposure: No Advance Directives: Advance Directives Date on File: 03/04/21 Occupation Assessmet: service: No Current occupational status: disabled Home Medications and Allergies Current Medications: Current Medications Acetaminophen (Acetaminophen 325 Mg Tablet) 650 mg G-TUBE Q6H PRN PRN Reason: Pain, Mild (Pain Scale 1-3) Last Admin: 02/07/23 09:41 Dose: 650 mg Albuterol Sulfate (Albuterol Sulfate 90 Mcg 8 Gm Inhaler) 2 puff INHALE Q4H PRN PRN Reason: for dyspnea Amlodipine Besylate (Amlodipine Besylate 2.5 Mg Tablet) 2.5 mg PO DAILY [facility]; Protocol Last Admin: 02/07/23 09:41 Dose: 2.5 mg Cyanocobalamin (Cyanocobalamin (Vitamin B-12) 1,000 Mcg Tablet) 1,000 mcg G-TUBE DAILY [facility] Last Admin: 02/07/23 09:40 Dose: 1,000 mcg Duloxetine HCl (Duloxetine Hcl 30 Mg Capsule.) 30 mg PO DAILY [facility] Last Admin: 02/07/23 09:40 Dose: 30 mg Duloxetine HCl (Duloxetine Hcl 60 Mg Capsule.) 60 mg PO DAILY [facility] Last Admin: 02/07/23 09:40 Dose: 60 mg Enoxaparin Sodium (Enoxaparin Sodium 40 Mg/0.4 Ml Syringe) 40 mg SUBCUT Q24H [facility] Last Admin: 02/06/23 21:10 Dose: 40 mg Ferrous Sulfate (Ferrous Sulfate 324 Mg Tablet.) 324 mg PO DAILY [facility] Last Admin: 02/07/23 09:40 Dose: 324 mg Fluticasone Propionate (Fluticasone Propionate 100 Mcg Blst.W.Dev) 2 puff INHALE RBID [facility] Last Admin: 02/07/23 07:57 Dose: 2 puff Fluticasone Propionate (Fluticasone Propionate Nasal 16 Gm [place]) 1 spray NOSTRIL-B DAILY [facility] Last Admin: 02/07/23 09:42 Dose: Not Given Gabapentin (Gabapentin 400 Mg Capsule) 400 mg G-TUBE TID [facility] Last Admin: 02/07/23 09:40 Dose: 400 mg Guaifenesin (Guaifenesin 100 Mg/5 Ml Liquid) 10 ml G-TUBE Q4H PRN PRN Reason: Cough Last Admin: 02/07/23 09:41 Dose: 10 ml Cefepime HCl 2 gm/ Sodium (Chloride) 50 mls @ 100 mls/hr IV Q12H [facility] Last Infusion: 02/07/23 10:40 Dose: Infused Levothyroxine Sodium (Levothyroxine Sodium 75 Mcg Tablet) 75 mcg G-TUBE DAILY@0600 [facility] Last Admin: 02/07/23 05:02 Dose: 75 mcg Morphine Sulfate (Morphine Sulfate 2 Mg/Ml Cartridge) 2 mg IVPUSH Q4H PRN; Protocol PRN Reason: Pain, Mild (Pain Scale 1-3) Last Admin: 02/07/23 09:41 Dose: 2 mg Non-Formulary Medication (Levocetirizine) 1 tab PO BEDTIME [facility] Non-Formulary Medication (Umeclidinium-Vilanterol [Anoro Ellipta]) 1 inhalation INHALE DAILY [facility] Omeprazole (Omeprazole 40 Mg Capsule.Dr) 40 mg PO DAILY@0630 [facility] Last Admin: 02/07/23 05:02 Dose: 40 mg Ondansetron HCl (Ondansetron Hcl 4 Mg/2 Ml Vial) 4 mg IVPUSH Q8H PRN PRN Reason: Nausea and Vomiting Last Admin: 02/03/23 15:31 Dose: 4 mg Pharmacy Consult (Consult Rx Perform Med Rec) 1 each MISCELLANE ONCE PRN PRN Reason: Consult order Sodium Chloride (0.9 % Sodium Chloride Flush 3 Ml Syringe) 3 ml IVFLUSH QSHIFT [facility] Last Admin: 02/07/23 09:42 Dose: 3 ml Tizanidine HCl (Tizanidine Hcl 4 Mg Tablet) 4 mg G-TUBE BEDTIME [facility] Last Admin: 02/06/23 21:11 Dose: 4 mg Tramadol HCl (Tramadol Hcl 50 Mg Tablet) 50 mg G-TUBE TID PRN PRN Reason: Pain, Moderate (Pain Scale 4-6 Last Admin: 02/07/23 09:40 Dose: 50 mg Triamcinolone Acetonide (Triamcinolone Acet 0.5 % Cream 15 Gm Tube) 1 appl TOPICAL BID [facility]; Protocol Last Admin: 02/07/23 09:42 Dose: Not Given Home Medications Medication Instructions Recorded Confirmed Type umeclidinium 62.5 mcg-vilanterol 1 inh inhalation DAILY 06/21/20 02/02/23 History 25 mcg/actuation powdr for inhalation (Anoro Ellipta) albuterol sulfate 90 mcg/actuation 2 puff PO Q4H PRN for dyspnea 03/18/22 02/02/23 History aerosol inhaler acetaminophen 160 mg/5 mL oral 10 ml feeding tube TID PRN pain 11/18/22 02/02/23 History liquid (M-PAP) duloxetine 30 mg capsule,delayed 1 cap PO DAILY 11/18/22 02/02/23 History release duloxetine 60 mg capsule,delayed 1 cap PO DAILY 11/18/22 02/02/23 History release fluticasone propionate 110 2 puff inhalation BID 11/18/22 02/02/23 History mcg/actuation HFA aerosol inhaler (Flovent HFA) fluticasone propionate 50 1 spray intranasal DAILY 11/18/22 02/02/23 History mcg/actuation nasal spray,suspension levocetirizine 5 mg tablet 1 tab PO BEDTIME 11/18/22 02/02/23 History omeprazole 40 mg capsule,delayed 1 cap PO DAILY 11/18/22 02/02/23 History release tizanidine 4 mg tablet 1 tab PO BEDTIME 11/18/22 02/02/23 History triamcinolone acetonide 0.5 % 1 appl topical BID 11/18/22 02/02/23 History topical cream ferrous sulfate 325 mg (65 mg 325 mg PO DAILY 01/13/23 02/02/23 History iron) tablet,delayed release tramadol 50 mg tablet 50 mg PO TID PRN Pain, Moderate 02/02/23 02/02/23 History (Pain Scale 4-6 Allergies Allergy/AdvReac Type Severity Reaction Status Date / Time Penicillins Allergy Intermediate Rash Verified 01/19/23 08:27 aspirin [ASA] AdvReac Intermediate GI BLEED, Verified 01/19/23 08:27 Headaches Physical Exam Vital signs: Vital Signs Temp 99.5 F 02/07/23 08:00 Pulse 112 H 02/07/23 08:00 Resp 19 02/07/23 09:41 BP 124/58 L 02/07/23 08:00 Pulse Ox 92 02/07/23 08:00 O2 Del Method Room Air 02/07/23 08:00 Intake & Output 02/06/23 02/07/23 02/07/23 18:59 06:59 18:59 Intake Total 50 / 100 50 / 100 50 / 50 Output Total 400 / 1200 800 / 1200 Balance -350 / -1100 -750 / -1100 50 / 50 Urine Output (Average ml/kg/hr) 0.55 1.11 1.11 Intake: Intake, IV Amount 50 / 100 50 / 100 50 / 50 cefEPime HCl 2 gm In 0.9 % 50 / 100 50 / 100 50 / 50 Sodium Chloride 50 ml @ 100 mls /hr IV Q12H [facility] Rx#:[id number] Output: Output, Urine Amount 400 / 1200 800 / 1200 Other: NPO Yes: ice chips only Yes Urine Urinal Urinal Urine Color Yellow Yellow Weight 60.1 kg - Constitutional Present: no acute distress - Routine HEENT Exam ENT: Present: mucous membranes dry Comments: trismus edentulous radiation fibrosis - Routine Neck Exam Comments: soft mass left neck - Routine Cardiovascular Exam Cardiovascular: Present: RRR - Routine Abdominal Exam Present: diminished bowel sounds Comments: g tube - Routine Extremities Exam Present: full ROM - Routine Neurological Exam Present: alert Hem/Onc Consult Result - Labs CBC & Chem 7: 02/07/23 05:48 02/07/23 05:48 Labs: Short CBC 02/07/23 Range/Units 05:48 WBC 14.7 H (4.8-10.8) X10*3/uL Hgb 7.4 L (14.0-18.0) g/dl Hct 21.9 L (42.0-52.0) % Plt Count 449 H (160-400) X10*3/uL BMP 02/07/23 05:48 Sodium 135 Potassium 4.0 Chloride 104 Carbon Dioxide 24 BUN 13 Creatinine 0.58 Calcium 7.6 L D Assessment and Plan Patient Active problem list reviewed?: Yes (1) Mass in neck Problem details: Patient will see me after a CT scan of the neck will be obtained as well as for follow-up regarding FNA results, or p.r.n. Status: Acute Assessment and plan: This is likely not cancer. Recommend treat the pneumonia and maximize nutrition and hydration. We requested ENT appointment with Dr. Blake at [facility] last week. He should see him after discharge. He is known there. - Time Spent With Patient Time Spent with Patient (in minutes): 20
[2023-02-07] MEDS: polyethylene glycoL 3350 17 GM POWD.PACK G-TUBE (17:35)
[2023-02-07] MEDS: Sennosides/Docusate Sodium TABLET 2 TAB G-TUBE ×2 (17:36→20:17)
[2023-02-07] MEDS: TiZANidine HCL 4 MG TABLET G-TUBE (20:17)
[2023-02-07] MEDS: Enoxaparin Sodium 40 MG/0.4 ML SYRINGE SUBCUT (20:17)
[2023-02-08] MEDS: Morphine Sulfate 2 MG/ML CARTRIDGE IVPUSH ×2 (01:02→07:52)
[2023-02-08] MEDS: guaiFENesin 100 MG/5 ML LIQUID 10 ML G-TUBE ×2 (01:06→06:06)
[2023-02-08 03:19] VITALS: BP 119/60; PULSE 98; RESP 16; TEMP 36.2; O2SAT 94
[2023-02-08] MEDS: Omeprazole 40 MG CAPSULE.DR PO (06:06)
[2023-02-08] MEDS: Levothyroxine Sodium 75 MCG TABLET G-TUBE (06:06)
[2023-02-08 06:18] LABS: Hematocrit 23.1 % (42.0-52.0); Hemoglobin 7.7 g/dl (14.0-18.0); Mean Corpuscular HGB Conc 33.3 g/dl (31.0-36.0); Mean Corpuscular Volume 95.9 fL (80.0-98.0); Mean Platelet Volume 10.5 fL (9.4-12.4); Platelet Count 520 X10*3/uL (160-400); Red Blood Count 2.41 X10*6/uL (4.60-5.80); Red Cell Distribution Width 15.4 % (11.0-16.0); White Blood Count 11.7 X10*3/uL (4.8-10.8)
[2023-02-08 07:48] VITALS: BP 128/60; PULSE 103; RESP 18; TEMP 37.3; O2SAT 95
[2023-02-08] MEDS: polyethylene glycoL 3350 17 GM POWD.PACK G-TUBE (07:52)
[2023-02-08] MEDS: Sennosides/Docusate Sodium TABLET 2 TAB G-TUBE (07:53)
[2023-02-08] MEDS: amLODIPine Besylate 2.5 MG TABLET PO (07:53)
[2023-02-08] MEDS: DULoxetine HCl 30 MG CAPSULE.DR PO (07:53)
[2023-02-08] MEDS: cefEPime HCl 2 GM in 0.9 % Sodium Chloride 50 ML IV (07:53)
[2023-02-08] MEDS: Cyanocobalamin (Vitamin B-12) 1,000 MCG TABLET 1000 MCG G-TUBE (07:53)
[2023-02-08] MEDS: Gabapentin 400 MG CAPSULE G-TUBE (07:53)
[2023-02-08] MEDS: DULoxetine HCl 60 MG CAPSULE.DR PO (07:53)
[2023-02-08] MEDS: 0.9 % Sodium Chloride Flush 3 ML SYRINGE IVFLUSH (07:54)
[2023-02-08] MEDS: Fluticasone Propionate 100 MCG BLST.W.DEV 2 PUFF INHALE (08:03)
[2023-02-08 08:06] VITALS: PULSE 82; RESP 20; O2SAT 93
[2023-02-08] MEDS: Ferrous Sulfate 324 MG TABLET.DR PO (08:21)
[2023-02-08] MEDS: Albuterol Sulfate 90 MCG 8 GM INHALER 2 PUFF INHALE (09:30)
[2023-02-08 09:31] VITALS: PULSE 99; RESP 16; O2SAT 92
--- NOTE | 2023-02-08 09:46 | PM.DS ---
DS: Providers Provider Date of Service: 02/08/23 Date of admission: 02/02/23 19:20 Date of discharge: 02/08/23 Primary care physician: Tracy Oneill MD Consults: 02/02/23 19:51 Consult to General Surgery Routine Consulting Provider: Fuad Euceda Reason for consultation: neck mass- bx shows abscess 02/04/23 14:46 Consult to Hematology / Oncology Routine Consulting Provider: Pedro Jasso Reason for consultation: hx throat CA, enlarging cervical mass, nondiag biopsy, sees Dr Euceda 02/06/23 07:25 Consult to Hematology / Oncology Routine Consulting Provider: Pedro Jasso Reason for consultation: hx throat CA. enlarging cervical mass- abscess on biopsy DS: Diagnosis Discharge Diagnosis (1) Mass in neck: Status: Acute (2) Gastrostomy tube dysfunction: Status: Acute (3) Pneumonia: Status: Acute (4) Acute hypoxemic respiratory failure: Status: Acute (5) Sepsis: Status: Acute (6) Anemia, chronic disease: Status: Acute (7) LUISA (acute kidney injury): Status: Acute DS: Summary Hospital Course Hospital Course: from admission H+P on 02/02/23 by hospitalist SALVADOR Velasco: 72-year-old male with past medical history of throat cancer in 2002 s/p radiation therapy of the throat, esophageal strictures, gtube in place for all feeds, COPD, depression, hyperlipidemia, GERD, HTN, hypothyroidism, presents to the hospital?for evaluation of g tube leak for several days. As a result he has not been getting much fluids. He is also reporting fever of 100 2 days ago and generalized weakness. He typically ambulated with a walker but today required two person assist to stand. He aslo tells me he iss currently being worked up for a mass in his neck. Following with Dr. Euceda outpatient and has upcoming PET scan. He has had productive cough over the last few days and pleuritic chest pain. No sick contacts. On arrival, blood pressures soft at 93/50, improved to 102/60 on my exam following IVF. Tachycardic to 92, afebrile in the ED. He has a leukocytosis of 28.8. H/H 7.6/22.5, MCV 90 6.2% creatinine 1.13, baseline 0.75, BUN 36, electrolyte levels normal.? Urinalysis unremarkable. GTube replaced in ED. KUB showed good placement. CXR shows new areas of consolidation bilaterally. In the ED, given 2L IVF and IV cefepime and azithromycin. 72yo M with throat CA in 2002 s/p XRT with resultant esophageal strictures and G-tube placement for all feeding, COPD, depression, HLD, GERD, HTN, hypothyroidism admitted for sepsis due to PNA. Hospital course by problem. # sepsis due to bilateral PNA - WBC 32.7 on presentation with tachycardia. LA normal. LUISA due to dehydration not sepsis. Not hypotensive - Treated with 7 days of IV cefepime + 3 days of IV azithromycin. Blood cultures negative, PCT decreased, WBCs improved to 11.7. - Discharged on 3 days of PO cefdinir. # acute hypoxic resp failure - Weaned off oxygen. # neck mass - Followed by oncologist Dr Jasso and CT surgeon Dr Euceda; CT scan 01/21 showed soft tissue thickening extending from angle of left mandible poseriorly without discrete mass and inverval increase in size of level IA lymph node compared to prior imaging; bx of mass negative for malignancy but showed acute inflammatory exudate and necrosis consistent with abscess formation, negative for fungal organisms or malignancy; was planned for outpt PET scan - CT neck showed mass stable in size. - Dr Jasso consulted: This is likely not cancer. Recommend treat the pneumonia and maximize nutrition and hydration.? We requested ENT appointment with Dr. Blake at [facility] last week. He should see him after discharge. He is known there. # acute-chronic anemia probably due to chronic disease ther than blood loss - H+H improved appropriately to 3u pRBCs, Hb 6.5->9.3->7.9->7.4 - continue Fe repletion # LUISA - due to dehydration - resolved s/p IV fluids # G tube dysfunction - replaced in ED, back on tube feeds He was discharged home with instructions to follow up with Dr Jasso and Dr Blake. Time Spent with Patient Time attestation: Total time managing care of this patient today _45___ minutes. Discharge coordination time: Greater than 30 minutes Quality: Safe Use of Opioids Does Pt have an Active Cancer Diagnosis on the Problem List?: No Quality: Stroke Does the patient have a stroke diagnosis?: No Physical Exam Vital Signs: Vital Signs: Last Vital Signs Temp 99.2 F 02/08/23 07:48 Pulse 99 02/08/23 09:31 Resp 16 02/08/23 09:31 BP 128/60 02/08/23 07:48 Pulse Ox 95 02/08/23 07:48 O2 Del Method Room Air 02/08/23 07:48 BMI result Body Mass Index 20.7 Gen: in no acute distress, thin HEENT: sclera anicteric, moist mucus membranes Neck: radiating scarring changes Lungs: diminished bilaterally Heart: regular rate and rhythm, no murmurs Abd: soft, non-tender, non-distended, G tube in place Ext: no edema Skin: warm/well-perfused Neuro: alert and oriented x3, no focal findings Psych: appropriate affect DS: Data Data Completed and Pending Completed studies during hospitalization [Text1]: Laboratory Results WBC 11.7 X10*3/uL (4.8-10.8) H 02/08/23 05:46 RBC 2.41 X10*6/uL (4.60-5.80) L 02/08/23 05:46 Hgb 7.7 g/dl (14.0-18.0) L 02/08/23 05:46 Hct 23.1 % (42.0-52.0) L 02/08/23 05:46 MCV 95.9 fL (80.0-98.0) 02/08/23 05:46 MCH 32.0 pg (27.0-33.0) 02/08/23 05:46 MCHC 33.3 g/dl (31.0-36.0) 02/08/23 05:46 RDW 15.4 % (11.0-16.0) 02/08/23 05:46 Plt Count 520 X10*3/uL (160-400) H 02/08/23 05:46 MPV 10.5 fL (9.4-12.4) 02/08/23 05:46 Immature Gran % (Auto) 2.2 % (0.0-0.4) H 02/04/23 05:56 Neut % (Auto) 90.4 % (45-73) H 02/04/23 05:56 Lymph % (Auto) 2.1 % (20-40) L 02/04/23 05:56 [place] % (Auto) 4.8 % (2-11) 02/04/23 05:56 Eos % (Auto) 0.2 % (0-4) 02/04/23 05:56 Baso % (Auto) 0.3 % (0-2) 02/04/23 05:56 Lymph # (Auto) 0.4 X10*3/uL (1.2-4.9) L 02/04/23 05:56 [place] # (Auto) 1.0 X10*3/uL (0.1-1.2) 02/04/23 05:56 Eos # (Auto) 0.0 X10*3/uL (0.0-0.4) 02/04/23 05:56 Baso # (Auto) 0.1 X10*3/uL (0.0-0.2) 02/04/23 05:56 Abs Immat Gran (auto) 0.46 X10*3/uL (0.00-0.03) H 02/04/23 05:56 Absolute Neuts (auto) 18.7 x10*3/uL (2.0-8.3) H 02/04/23 05:56 Absolute Nucleated RBC 0.000 X10*3/uL (0.0-0.012) 02/08/23 05:46 Nucleated RBC % (auto) 0.0 /100WBC (0.0-0.2) 02/08/23 05:46 Smear Tech's Comments VERIFIED 02/04/23 05:56 Smear Path Review 02/03/23 05:28 Sodium 135 mmol/L (135-145) 02/07/23 05:48 Potassium 4.0 mmol/L (3.3-5.1) 02/07/23 05:48 Chloride 104 mmol/L (96-108) 02/07/23 05:48 Carbon Dioxide 24 mmol/L (22-29) 02/07/23 05:48 Anion Gap 11 (12-20) L 02/07/23 05:48 BUN 13 mg/dL (9-16) 02/07/23 05:48 Creatinine 0.58 mg/dL (0.5-1.4) 02/07/23 05:48 Estim Creat Clear Calc 97.8 02/07/23 05:48 Estimated GFR > 60 02/07/23 05:48 Random Glucose 89 mg/dL (60-115) 02/07/23 05:48 Lactic Acid 0.8 mmol/L (0.5-2.0) 02/02/23 17:17 Calcium 7.6 mg/dL (8.4-10.2) L D 02/07/23 05:48 Troponin I High Sens 3.9 ng/L (<3.5-35.0) D 02/02/23 15:52 Procalcitonin 0.50 ng/mL 02/08/23 05:46 Urine Color Dark Yellow 02/02/23 18:13 Urine Appearance Clear 02/02/23 18:13 Urine pH 5.5 (5.0-9.0) 02/02/23 18:13 Ur Specific [place] 1.020 (1.005-1.025) 02/02/23 18:13 Urine Protein 30 (1+) mg/dL (Neg-Trace) H 02/02/23 18:13 Urine Glucose (UA) Negative mg/dL (Negative) 02/02/23 18:13 Urine Ketones Negative mg/dL (Negative) 02/02/23 18:13 Urine Blood Negative (Negative) 02/02/23 18:13 Urine Nitrite Negative (Negative) 02/02/23 18:13 Ur Leukocyte Esterase Trace (Negative) H 02/02/23 18:13 Urine RBC 0-2 /HPF (0-2) 02/02/23 18:13 Urine WBC 0-5 /HPF (0-5) 02/02/23 18:13 Ur Squamous Epith Cells 3-5 /HPF (0-2) 02/02/23 18:13 Urine Bacteria None Seen (None Seen) 02/02/23 18:13 Hyaline Casts 11-20 /LPF (0-2) 02/02/23 18:13 Blood Type O Positive 02/08/23 05:46 Antibody Screen NEGATIVE 02/08/23 05:46 Crossmatch See Detail 02/03/23 06:59 Impressions Chest X-Ray 02/02/23 18:08 IMPRESSION: 1. New areas of consolidation in the lungs as described above. 2. G-tube is in good position. KUB X-Ray 02/02/23 18:08 IMPRESSION: 1. New areas of consolidation in the lungs as described above. 2. G-tube is in good position. Soft Tissue Neck CT 02/05/23 14:20 IMPRESSION: - There is new extensive consolidation within the lungs bilaterally when compared to the previous neck CT concerning for multifocal pneumonia. - Previously seen stranding and soft tissue thickening along the periphery of the left submandibular gland as well as thickening of the left platysma muscle are mildly improved when compared to the 01/21/2023 CT. There is decreased reticulation within the adjacent subcutaneous fat. No peripherally enhancing fluid collections. There is a stable level 1A lymph node measuring up to 1.1 cm. As discussed on the prior study, a PET/CT could be obtained for further assessment given the patient's known history of malignancy. - Stable fatty replacement of the parotid glands and the submandibular glands with stable heterogeneous soft tissue density within portions of the left submandibular gland that remains nonspecific. - There is soft tissue thickening within the carotid space bilaterally and within the retropharyngeal space that is most likely posttreatment related and that remains stable. Discharge Plan Discharge Anticipated Discharge Date/Time: 02/08/23 09:41 Patient Disposition: Home, Self-Care Discharge Diagnosis: G-tube dysfunction pneumonia neck mass Referrals: Tracy Oneill MD [Primary Care Provider] - 1 Week Pedro Jasso MD [Physician] - 1 Week Rene Blake MD [Physician] - 1 Week Discharge Medications: New cefdinir 300 mg capsule 300 mg PO BID Qty: 6 0RF Continued Anoro Ellipta 62.5-25 mcg/actuation Blister With Device 1 inh INHALATION DAILY albuterol sulfate 90 mcg/actuation HFA aerosol inhaler 2 puff PO Q4H PRN (Reason: for dyspnea) multivitamin Tablet 1 tab feeding tube DAILY Qty: 30 0RF gabapentin 400 mg capsule 400 mg feeding tube TID Qty: 30 0RF cyanocobalamin (vitamin B-12) [Vitamin B-12] 1,000 mcg tablet 1,000 mcg feeding tube DAILY Qty: 30 0RF levothyroxine 75 mcg tablet 75 mcg feeding tube DAILY@0600 Qty: 30 0RF acetaminophen [M-PAP] 160 mg/5 mL liquid 10 ml feeding tube TID PRN (Reason: pain) triamcinolone acetonide 0.5 % cream 1 appl topical BID tizanidine 4 mg tablet 1 tab PO BEDTIME fluticasone propionate [Flovent HFA] 110 mcg/actuation HFA aerosol inhaler 2 puff INHALATION BID duloxetine 30 mg capsule,delayed release(DR/EC) 1 cap PO DAILY duloxetine 60 mg capsule,delayed release(DR/EC) 1 cap PO DAILY levocetirizine 5 mg tablet 1 tab PO BEDTIME omeprazole 40 mg capsule,delayed release(DR/EC) 1 cap PO DAILY fluticasone propionate 50 mcg/actuation spray,suspension 1 spray intranasal DAILY amlodipine 2.5 mg Tablet 2.5 mg PO DAILY Qty: 30 0RF Protocol: Hold for SBP< HOLD for SBP < : 90 tramadol 50 mg tablet 50 mg PO TID PRN (Reason: Pain, Moderate (Pain Scale 4-6) ferrous sulfate 325 mg (65 mg iron) tablet,delayed release (DR/EC) 325 mg PO DAILY (DME) cane Device See Rx Instructions .Route Qty: 1 0RF Rx Instructions: As directed Discharge Orders: Discharge Order (Routine); Ordered 02/08/23 Ordered By: Cora Ricardo Diet: tube feeds Activity on Discharge: As tolerated Stand Alone Forms: Patient Portal Discharge page Care Plan Goals: functioning G tube recovery from pneumonia diagnosis of neck mass Health Concerns: G-tube dysfunction pneumonia neck mass Plan of Treatment: continue tube feeds take cefdinir 300 mg twice daily for [address] Blake [ENT] for assessment of neck mass Please follow up with your primary care doctor within 1 week. Return to the hospital if you experience recurrent or worsening symptoms. Assessment: See Discharge Summary.
--- NOTE | 2023-02-08 10:35 | MHC.CM.PN ---
PT WILL DC HOME TODAY HE REPORTS HIS DAUGHTER IS HIS EDITOR PRODUCER AND LIVES IN THE SAME BUILDING HIM HIS DAUGHTER WILL ALSO PROVIDE TRANSPORT
== END 2023-02-08 11:45 | disposition home or self-care (01) | DRG 871 ==
LOC: HO.ED 18:41 → HO.EDOVER 19:33 → HO.S3 19:34
PROVIDERS: Nurse Practitioner Acute Care; Admitting Provider Physician Assistant; Emergency Provider Emergency Medicine; PCP Internal Medicine; Visit Provider Family Medicine
DX: A41.9 Sepsis, unspecified organism (principal); J18.9 Pneumonia, unspecified organism; J96.01 Acute respiratory failure with hypoxia; N17.9 Acute kidney failure, unspecified; K94.23 Gastrostomy malfunction; D63.8 Anemia in other chronic diseases classified elsewhere; E03.9 Hypothyroidism, unspecified; E86.0 Dehydration; Z92.3 Personal history of irradiation; Z87.891 Personal history of nicotine dependence; Z79.51 Long term (current) use of inhaled steroids; Z79.890 Hormone replacement therapy; Z79.899 Other long term (current) drug therapy
CPT/HCPCS: 36415; 70491; 71045; 74018; 80048; 81001; 81003; 83605; 84145; 84484; 85014; 85018; 85025; 85027; 86850; 86900; 86901; 86923; 87040; 93005; 94640; 99285; J0456; J0692; J1650; J2270; J2405; P9016; Q9967

== ENCOUNTER 2023-02-13 14:20 | Emergency (ER) | payer OTHER, SELFPAY ==
--- NOTE | ~2023-02-13 | XR_ITS ---
EXAMINATION: XR ABDOMEN KUB CLINICAL INDICATION: G-tube placement COMPARISON: X-ray from earlier the same day TECHNIQUE: AP view of the abdomen. FINDINGS: There is a G-tube projecting over the stomach. There is a G-tube has been injected with contrast and there is contrast seen in the stomach and proximal small bowel. No evidence of obstruction, leak or free air. XR/XR KUB IMPRESSION: G-tube in the stomach.
--- NOTE | ~2023-02-13 | XR_ITS ---
EXAMINATION: XR ABDOMEN KUB CLINICAL INDICATION: G-tube position COMPARISON: 02/02/2023 TECHNIQUE: AP view of the abdomen. FINDINGS: There is nonobstructing bowel gas pattern. There is G tube seen in the left upper quadrant. The position is not confirmed without contrast Patient is status post L4-L5 fusion. XR/XR KUB IMPRESSION: G-tube in the left upper quadrant for confirmation of location injection of contrast need to be used.
[2023-02-13 14:28] VITALS: BP 106/55; BP 118/85; PULSE 78; PULSE 88; RESP 12; TEMP 36.9; O2SAT 100; O2SAT 99; BMI 20.4
--- NOTE | 2023-02-13 15:03 | PC.NURSE ---
pt AOx4. attempted to unclog pt feeding tube. inserted new tube. awaiting X ray for placement
--- NOTE | 2023-02-13 15:04 | ED_ITS ---
HPI - General Adult General Chief complaint: General Medical Stated complaint: GI FEEDING TUBE CLOGGED,WEAKNESS Time Seen by Provider: 02/13/23 14:45 Source: patient Mode of arrival: EMS Limitations: no limitations History of Present Illness HPI narrative: Patient with history of head and neck cancer on feeding tube since 07/29 comes here for tube in clock since morning which was replaced 2 weeks ago no abdominal pain no fever no chest pain. Patient tried to flush it at home unable to do it Related Data Home Medications Medication Instructions Recorded Confirmed umeclidinium 62.5 mcg-vilanterol 1 inh inhalation DAILY 06/21/20 02/02/23 25 mcg/actuation powdr for inhalation (Anoro Ellipta) albuterol sulfate 90 mcg/actuation 2 puff PO Q4H PRN for dyspnea 03/18/22 02/02/23 aerosol inhaler acetaminophen 160 mg/5 mL oral 10 ml feeding tube TID PRN pain 11/18/22 02/02/23 liquid (M-PAP) duloxetine 30 mg capsule,delayed 1 cap PO DAILY 11/18/22 02/02/23 release duloxetine 60 mg capsule,delayed 1 cap PO DAILY 11/18/22 02/02/23 release fluticasone propionate 110 2 puff inhalation BID 11/18/22 02/02/23 mcg/actuation HFA aerosol inhaler (Flovent HFA) fluticasone propionate 50 1 spray intranasal DAILY 11/18/22 02/02/23 mcg/actuation nasal spray,suspension levocetirizine 5 mg tablet 1 tab PO BEDTIME 11/18/22 02/02/23 omeprazole 40 mg capsule,delayed 1 cap PO DAILY 11/18/22 02/02/23 release tizanidine 4 mg tablet 1 tab PO BEDTIME 11/18/22 02/02/23 triamcinolone acetonide 0.5 % 1 appl topical BID 11/18/22 02/02/23 topical cream ferrous sulfate 325 mg (65 mg 325 mg PO DAILY 01/13/23 02/02/23 iron) tablet,delayed release tramadol 50 mg tablet 50 mg PO TID PRN Pain, Moderate 02/02/23 02/02/23 (Pain Scale 4-6 Previous Rx's Medication Instructions Recorded cyanocobalamin (vitamin B-12) 1,000 mcg feeding tube DAILY #30 07/18/22 1,000 mcg tablet (Vitamin B-12) tabs gabapentin 400 mg capsule 400 mg feeding tube TID #30 caps 07/18/22 levothyroxine 75 mcg tablet 75 mcg feeding tube DAILY@0600 #30 07/18/22 tabs multivitamin 1 tab feeding tube DAILY #30 tabs 07/18/22 amlodipine 2.5 mg tablet 2.5 mg PO DAILY #30 tabs 11/24/22 cane #1 ea 01/13/23 cefdinir 300 mg capsule 300 mg PO BID #6 caps 02/08/23 Allergies Allergy/AdvReac Type Severity Reaction Status Date / Time Penicillins Allergy Intermediate Rash Verified 01/19/23 08:27 aspirin [ASA] AdvReac Intermediate GI BLEED, Verified 01/19/23 08:27 Headaches Review of Systems Review of Systems: Yes all other systems are reviewed and are negative [facility] Past Medical History Medical History Anemia Aortic aneurysm Arthritis Back pain Cancer COPD (chronic obstructive pulmonary disease) COVID-19 Depression Difficulty swallowing Elevated cholesterol Esophageal stricture GERD (gastroesophageal reflux disease) History of chemotherapy History of epistaxis HTN (hypertension) Hx of radiation therapy Lumbar radiculitis Normocytic anemia Osteoarthritis of left shoulder Pain around PEG tube site Post laminectomy syndrome Pulmonary nodule Thyroid disease Uses feeding tube Surgical History H/O colonoscopy History of back surgery History of esophagogastroduodenoscopy (EGD) History of nasal surgery History of transurethral resection of prostate Family History Family History Father Brain cancer Mother CVD (cardiovascular disease) Maternal Aunt Diabetes Social History Social History Household Members: Family Household Members Other:: 3 Housing: Apartment Do you presently have visiting nurse or other home services: No (Daughter is pt's CLERK SPECIALIST) Alcohol intake: never Patient Tobacco Use Status: Former Tobacco user Quit Date: 40 years ago Tobacco use type: Cigarette Cigarette Packs Per Day: 3 Years Smoked: 25 Smoked in Last 30 Days: No e-Cigarette/Vaping Use: Never Used Second Hand Smoke Exposure: No Use of substances other than those prescribed or required for medical reasons: No Advance Directives: Yes Advance Directives on File: Yes Advance Directives Date on File: 03/04/21 service: No Current occupational status: disabled Physical Exam ED Vital Signs: Vital Signs - 24 hr 02/13/23 14:28 Temperature 98.5 F Pulse Rate 78 Respiratory Rate 12 Blood Pressure 106/55 L Pulse Oximetry 99 Oxygen Delivery Method Room Air BMI result Body Mass Index 20.4 Appearance: Alert. Oriented X3. No acute distress. ENT: Pharynx normal. Oral Mucosa moist Neck: Normal inspection. Neck supple. CVS: Normal heart rate and rhythm. Pulses normal. Respiratory: No respiratory distress. Equal air entry bilateral, no wheezing/rales/rhonchi Abdomen: Soft and nontender. Bowel sounds are present, no mass palpable, no CVA tenderness G-tube in place clock Skin: Skin warm and dry. Normal skin color. Normal skin turgor. Extremities: No lower extremity edema. Neuro: Oriented X 3. No motor deficit. Procedures Feeding Tube Replacement Type of Tube: gastrostomy Insertion Site Prior to Procedure: clean Tube Used for Reinsertion: Bard and other Uzbek Tube Size (F): 22 Balloon size (mL): 10 Verification of Placement: auscultation, KUB and gastrografin injection Tube Secured by: other Patient Tolerated Procedure: well Medical Decision Making Medical Decision Making MDM Narrative: Feeding tube was replaced KUB x-ray shows no extravasation tube in place will discharge patient back home Discharge Plan Discharge Clinical Impression: Blockage of feeding tube Patient Disposition: Home, Self-Care Instructions: How to Use and Care for Your PEG Tube (ED) Additional Instructions: Care as advised Prescriptions: No Action Anoro Ellipta 62.5-25 mcg/actuation Blister With Device 1 inh INHALATION DAILY albuterol sulfate 90 mcg/actuation HFA aerosol inhaler 2 puff PO Q4H PRN (Reason: for dyspnea) multivitamin Tablet 1 tab feeding tube DAILY Qty: 30 0RF gabapentin 400 mg capsule 400 mg feeding tube TID Qty: 30 0RF cyanocobalamin (vitamin B-12) [Vitamin B-12] 1,000 mcg tablet 1,000 mcg feeding tube DAILY Qty: 30 0RF levothyroxine 75 mcg tablet 75 mcg feeding tube DAILY@0600 Qty: 30 0RF acetaminophen [M-PAP] 160 mg/5 mL liquid 10 ml feeding tube TID PRN (Reason: pain) triamcinolone acetonide 0.5 % cream 1 appl topical BID tizanidine 4 mg tablet 1 tab PO BEDTIME fluticasone propionate [Flovent HFA] 110 mcg/actuation HFA aerosol inhaler 2 puff INHALATION BID duloxetine 30 mg capsule,delayed release(DR/EC) 1 cap PO DAILY duloxetine 60 mg capsule,delayed release(DR/EC) 1 cap PO DAILY levocetirizine 5 mg tablet 1 tab PO BEDTIME omeprazole 40 mg capsule,delayed release(DR/EC) 1 cap PO DAILY fluticasone propionate 50 mcg/actuation spray,suspension 1 spray intranasal DAILY amlodipine 2.5 mg Tablet 2.5 mg PO DAILY Qty: 30 0RF Protocol: Hold for SBP< HOLD for SBP < : 90 tramadol 50 mg tablet 50 mg PO TID PRN (Reason: Pain, Moderate (Pain Scale 4-6) cefdinir 300 mg capsule 300 mg PO BID Qty: 6 0RF ferrous sulfate 325 mg (65 mg iron) tablet,delayed release (DR/EC) 325 mg PO DAILY (DME) cane Device See Rx Instructions .Route Qty: 1 0RF Rx Instructions: As directed
[2023-02-13] MEDS: Diatrizoate Meglumine, Sodium 30 ML SOLUTION PO (15:53)
[2023-02-13 15:59] VITALS: BP 114/57; PULSE 76; RESP 16; O2SAT 94
--- NOTE | 2023-02-13 16:10 | PC.NURSE ---
pt vitals stable upon discharge assessment.
== END 2023-02-13 16:10 | disposition home or self-care (01) ==
PROVIDERS: Emergency Provider Internal Medicine; PCP Internal Medicine
DX: K94.23 Gastrostomy malfunction (principal); R10.2 Pelvic and perineal pain; Z87.891 Personal history of nicotine dependence
CPT/HCPCS: 74018; 99283; 99284

== ENCOUNTER 2023-02-16 16:44 | Emergency (ER) | payer OTHER, SELFPAY ==
--- NOTE | ~2023-02-16 | XR_ITS ---
EXAMINATION: XR ABDOMEN KUB CLINICAL INDICATION: Status post-post gastrostomy tube placement. COMPARISON: KUB dated 02/13/2023. TECHNIQUE: AP view of the abdomen and pelvis. FINDINGS: The bowel gas pattern is normal with no evidence of ileus or obstruction. A gastrostomy tube is noted. Oral contrast is administered via the gastrostomy tube, which outlines the distal esophagus, stomach, duodenum and proximal jejunal loops. No unusual soft tissue calcifications are noted. There is no acute osseous abnormality. There is a mild lumbar dextroscoliosis. There has been a prior L5-S1 fusion. XR/XR KUB IMPRESSION: A gastrostomy tube is noted. Contrast outlines the stomach, duodenum and proximal small bowel loops, without extravasation. This confirms intragastric position of the distal gastrostomy tube.
[2023-02-16 16:56] VITALS: BP 105/61; BP 142/78; PULSE 75; PULSE 82; RESP 20; TEMP 36.7; O2SAT 97; BMI 20.1
--- NOTE | 2023-02-16 17:24 | ED.GENADULT ---
HPI - General Adult General Chief complaint: General Medical Stated complaint: dizziness, leaky gi tube, per ems Time Seen by Provider: 02/16/23 16:50 History of Present Illness HPI narrative: Patient is 72 years old, presents today with having G-tube leaking. Patient denies any systemic complaints. Is from long-term. Related Data Home Medications Medication Instructions Recorded Confirmed umeclidinium 62.5 mcg-vilanterol 1 inh inhalation DAILY 06/21/20 02/02/23 25 mcg/actuation powdr for inhalation (Anoro Ellipta) albuterol sulfate 90 mcg/actuation 2 puff PO Q4H PRN for dyspnea 03/18/22 02/02/23 aerosol inhaler acetaminophen 160 mg/5 mL oral 10 ml feeding tube TID PRN pain 11/18/22 02/02/23 liquid (M-PAP) duloxetine 30 mg capsule,delayed 1 cap PO DAILY 11/18/22 02/02/23 release duloxetine 60 mg capsule,delayed 1 cap PO DAILY 11/18/22 02/02/23 release fluticasone propionate 110 2 puff inhalation BID 11/18/22 02/02/23 mcg/actuation HFA aerosol inhaler (Flovent HFA) fluticasone propionate 50 1 spray intranasal DAILY 11/18/22 02/02/23 mcg/actuation nasal spray,suspension levocetirizine 5 mg tablet 1 tab PO BEDTIME 11/18/22 02/02/23 omeprazole 40 mg capsule,delayed 1 cap PO DAILY 11/18/22 02/02/23 release tizanidine 4 mg tablet 1 tab PO BEDTIME 11/18/22 02/02/23 triamcinolone acetonide 0.5 % 1 appl topical BID 11/18/22 02/02/23 topical cream ferrous sulfate 325 mg (65 mg 325 mg PO DAILY 01/13/23 02/02/23 iron) tablet,delayed release tramadol 50 mg tablet 50 mg PO TID PRN Pain, Moderate 02/02/23 02/02/23 (Pain Scale 4-6 Previous Rx's Medication Instructions Recorded cyanocobalamin (vitamin B-12) 1,000 mcg feeding tube DAILY #30 07/18/22 1,000 mcg tablet (Vitamin B-12) tabs gabapentin 400 mg capsule 400 mg feeding tube TID #30 caps 07/18/22 levothyroxine 75 mcg tablet 75 mcg feeding tube DAILY@0600 #30 07/18/22 tabs multivitamin 1 tab feeding tube DAILY #30 tabs 07/18/22 amlodipine 2.5 mg tablet 2.5 mg PO DAILY #30 tabs 11/24/22 cane #1 ea 01/13/23 cefdinir 300 mg capsule 300 mg PO BID #6 caps 02/08/23 Allergies Allergy/AdvReac Type Severity Reaction Status Date / Time Penicillins Allergy Intermediate Rash Verified 01/19/23 08:27 aspirin [ASA] AdvReac Intermediate GI BLEED, Verified 01/19/23 08:27 Headaches Review of Systems Review of Systems: No fever no chills no chest pain or shortness breath no nausea no vomiting no systemic complaints Yes all other systems are reviewed and are negative [facility] Past Medical History Attestation statement: The following information was validated with the patient. Medical History Anemia Aortic aneurysm Arthritis Back pain Cancer COPD (chronic obstructive pulmonary disease) COVID-19 Depression Difficulty swallowing Elevated cholesterol Esophageal stricture GERD (gastroesophageal reflux disease) History of chemotherapy History of epistaxis HTN (hypertension) Hx of radiation therapy Lumbar radiculitis Normocytic anemia Osteoarthritis of left shoulder Pain around PEG tube site Post laminectomy syndrome Pulmonary nodule Thyroid disease Uses feeding tube Surgical History H/O colonoscopy History of back surgery History of esophagogastroduodenoscopy (EGD) History of nasal surgery History of transurethral resection of prostate Family History Family History Father Brain cancer Mother CVD (cardiovascular disease) Maternal Aunt Diabetes Social History Social History Household Members: Family Household Members Other:: 3 Housing: Apartment Do you presently have visiting nurse or other home services: No (Daughter is pt's GED INSTRUCTOR) Alcohol intake: never Patient Tobacco Use Status: Former Tobacco user Quit Date: 40 years ago Tobacco use type: Cigarette Cigarette Packs Per Day: 3 Years Smoked: 25 Smoked in Last 30 Days: No e-Cigarette/Vaping Use: Never Used Second Hand Smoke Exposure: No Advance Directives: Yes Advance Directives on File: Yes Advance Directives Date on File: 03/04/21 service: No Current occupational status: disabled Physical Exam ED Vital Signs: Vital Signs - 24 hr 02/16/23 16:56 02/16/23 18:35 02/16/23 19:25 Temperature 98.1 F 98.1 F Pulse Rate 75 70 73 Respiratory Rate 20 18 17 Blood Pressure 105/61 105/53 L 112/51 L Pulse Oximetry 97 98 98 Oxygen Delivery Method Room Air Room Air Room Air BMI result Body Mass Index 20.1 Appearance: Alert. Oriented X3. No acute distress. Eyes: Pupils equal, round and reactive to light. ENT: Pharynx normal. Neck: Normal inspection. Neck supple. No lymph nodes noted. No crepitus CVS: Normal heart rate and rhythm. Pulses normal. Normal S1 and S2 Respiratory: No respiratory distress. Breath sounds normal. No Wheezing. No rales Abdomen: Soft and nontender. No rigidity. No distention. good BS x4. G-tube seems to be in place. However leaking from the ends. Skin: Skin warm and dry. Normal skin color. Normal skin turgor. Extremities: No lower extremity edema. Neurovascular intact to all extremities. No Lacerations. No Rash Neuro: Oriented X 3. No motor deficit. No sensory deficit. Moving all extermities. No slurred speech Medications Administered Discontinued Medications Generic Name Dose Route Start Last Admin Trade Name Freq PRN Reason Stop Dose Admin Diatrizoate Meglum/Diatrizoate Sod 120 ml 02/16/23 18:19 02/16/23 18:20 Diatrizoate Meglumine, Sodium 120 Ml Solution PO 02/16/23 18:20 10 ml ONCE ONE Administration Procedures Feeding Tube Replacement Type of Tube: gastrostomy Insertion Site Prior to Procedure: clean Tube Used for Reinsertion: other (New G-tube 22 Indonesian) Indonesian Tube Size (F): 22 Balloon size (mL): 10 Verification of Placement: KUB Tube Secured by: tape/dressing Patient Tolerated Procedure: well Medical Decision Making Medical Decision Making MDM Narrative: Patient's G-tube has been in place since July. Complaining the G-tube is leaking. Will replace the G-tube. G-tube is replaced KUB showed good placement will discharge patient Independent Interpretation I performed an independent interpretation of an: Plain X-Ray Interpretation: X-ray showed G-tube to be in place Radiology Impression Discussion of test interpretation with radiology: I have reviewed the radiologist's reading. Discharge Plan Discharge Clinical Impression: Feeding by G-tube Patient Disposition: Home, Self-Care Instructions: How to Use and Care for Your PEG Tube (ED) Prescriptions: No Action Anoro Ellipta 62.5-25 mcg/actuation Blister With Device 1 inh INHALATION DAILY albuterol sulfate 90 mcg/actuation HFA aerosol inhaler 2 puff PO Q4H PRN (Reason: for dyspnea) multivitamin Tablet 1 tab feeding tube DAILY Qty: 30 0RF gabapentin 400 mg capsule 400 mg feeding tube TID Qty: 30 0RF cyanocobalamin (vitamin B-12) [Vitamin B-12] 1,000 mcg tablet 1,000 mcg feeding tube DAILY Qty: 30 0RF levothyroxine 75 mcg tablet 75 mcg feeding tube DAILY@0600 Qty: 30 0RF acetaminophen [M-PAP] 160 mg/5 mL liquid 10 ml feeding tube TID PRN (Reason: pain) triamcinolone acetonide 0.5 % cream 1 appl topical BID tizanidine 4 mg tablet 1 tab PO BEDTIME fluticasone propionate [Flovent HFA] 110 mcg/actuation HFA aerosol inhaler 2 puff INHALATION BID duloxetine 30 mg capsule,delayed release(DR/EC) 1 cap PO DAILY duloxetine 60 mg capsule,delayed release(DR/EC) 1 cap PO DAILY levocetirizine 5 mg tablet 1 tab PO BEDTIME omeprazole 40 mg capsule,delayed release(DR/EC) 1 cap PO DAILY fluticasone propionate 50 mcg/actuation spray,suspension 1 spray intranasal DAILY amlodipine 2.5 mg Tablet 2.5 mg PO DAILY Qty: 30 0RF Protocol: Hold for SBP< HOLD for SBP < : 90 tramadol 50 mg tablet 50 mg PO TID PRN (Reason: Pain, Moderate (Pain Scale 4-6) cefdinir 300 mg capsule 300 mg PO BID Qty: 6 0RF ferrous sulfate 325 mg (65 mg iron) tablet,delayed release (DR/EC) 325 mg PO DAILY (DME) cane Device See Rx Instructions .Route Qty: 1 0RF Rx Instructions: As directed Referrals: Physician,Unknown J [Primary Care Provider] -
[2023-02-16] MEDS: Diatrizoate Meglumine, Sodium 120 ML SOLUTION PO (18:20)
[2023-02-16 18:35] VITALS: BP 105/53; PULSE 70; RESP 18; O2SAT 98
--- NOTE | 2023-02-16 19:12 | PC.NURSE ---
Report taken from Rola CUBA, assumed care of pt at this time. Pt awaiting xray results and probable DC.
[2023-02-16 19:25] VITALS: BP 112/51; PULSE 73; RESP 17; TEMP 36.7; O2SAT 98
[2023-02-16 21:06] VITALS: BP 113/55; PULSE 80; RESP 16; O2SAT 98
== END 2023-02-16 21:25 | disposition home or self-care (01) ==
PROVIDERS: Emergency Provider Emergency Medicine Emergency Medical Services
DX: Z43.1 Encounter for attention to gastrostomy (principal); R42 Dizziness and giddiness; Z79.899 Other long term (current) drug therapy
CPT/HCPCS: 43762; 74018; 99283; 99284

== ENCOUNTER 2023-02-17 08:10 | Outpatient (REF) | payer OTHER, SELFPAY | END 2023-02-17 08:11 | disposition home or self-care (01) | LOC: HO.PET 08:10 | PROVIDERS: PCP Internal Medicine; Visit Provider Surgery | DX: Z13.89 Encounter for screening for other disorder (principal) ==

== ENCOUNTER → 2023-02-27 11:33 | Outpatient (BNVA) | payer OTHER, SELFPAY | PROVIDERS: Visit Provider Internal Medicine Gastroenterology | DX: R13.10 Dysphagia, unspecified (principal); D63.8 Anemia in other chronic diseases classified elsewhere | CPT/HCPCS: 99212 ==

== ENCOUNTER 2023-03-14 17:58 | Emergency (ER) | payer OTHER, SELFPAY ==
[2023-03-14 18:01] VITALS: BP 108/55; PULSE 100; RESP 18; TEMP 37.2; O2SAT 96; BMI 18.8
--- NOTE | 2023-03-14 18:03 | ED.ABDPAIN ---
HPI - Abdominal Pain General Chief Complaint: General Medical Stated Complaint: abd catheter isnt working Time Seen by Provider: 03/14/23 18:45 Source: patient Limitations: no limitations History of Present Illness HPI narrative: Lawrence is a 72 year old patient with a history of anemia, LUISA, COPD, and throat cancer w/ cervical lymphadenopathy with chronic G-tube. Presents today due to his G-tube being dysfunctional since last night. The patient denies any trauma to the area or any other precipitating factors and states he was just sitting watching TV when he felt air come from the site and everything after that has leaked out of the sides and is not administering correctly. He elicited some discomfort from the area but states he is comfortable for the most part. The site is slightly erythematous and draining a brownish fluid. MD elicited complaint: other (g-tube dysfunction) Onset (ago): day(s) Pain Consistency: intermittent Location: LLQ Severity: mild Quality: dull Radiation: none Migration to: no migration Exacerbating factors: nothing Relieving factors: nothing Context: history of similar episodes Associated symptoms: denies other symptoms Related Data Home Medications Medication Instructions Recorded Confirmed umeclidinium 62.5 mcg-vilanterol 1 inh inhalation DAILY 06/21/20 02/20/23 25 mcg/actuation powdr for inhalation (Anoro Ellipta) albuterol sulfate 90 mcg/actuation 2 puff PO Q4H PRN for dyspnea 03/18/22 02/20/23 aerosol inhaler acetaminophen 160 mg/5 mL oral 10 ml feeding tube TID PRN pain 11/18/22 02/20/23 liquid (M-PAP) duloxetine 30 mg capsule,delayed 1 cap PO DAILY 11/18/22 02/20/23 release duloxetine 60 mg capsule,delayed 1 cap PO DAILY 11/18/22 02/20/23 release fluticasone propionate 110 2 puff inhalation BID 11/18/22 02/20/23 mcg/actuation HFA aerosol inhaler (Flovent HFA) fluticasone propionate 50 1 spray intranasal DAILY 11/18/22 02/20/23 mcg/actuation nasal spray,suspension levocetirizine 5 mg tablet 1 tab PO BEDTIME 11/18/22 02/20/23 omeprazole 40 mg capsule,delayed 1 cap PO DAILY 11/18/22 02/20/23 release tizanidine 4 mg tablet 1 tab PO BEDTIME 11/18/22 02/20/23 triamcinolone acetonide 0.5 % 1 appl topical BID 11/18/22 02/20/23 topical cream ferrous sulfate 325 mg (65 mg 325 mg PO DAILY 01/13/23 02/20/23 iron) tablet,delayed release tramadol 50 mg tablet 50 mg PO TID PRN Pain, Moderate 02/02/23 02/20/23 (Pain Scale 4-6 [id number] 120 mcg-lutein tab PO DAILY 02/27/23 150 mcg-herb 50 mg chewable tablet (Alive Men's 50 Plus Multivitamin) timolol maleate 0.5 % eye drops 1 drp ophthalmic (eye) QAM 02/27/23 Previous Rx's Medication Instructions Recorded cyanocobalamin (vitamin B-12) 1,000 mcg feeding tube DAILY #30 07/18/22 1,000 mcg tablet (Vitamin B-12) tabs gabapentin 400 mg capsule 400 mg feeding tube TID #30 caps 07/18/22 levothyroxine 75 mcg tablet 75 mcg feeding tube DAILY@0600 #30 07/18/22 tabs amlodipine 2.5 mg tablet 2.5 mg PO DAILY #30 tabs 11/24/22 cane #1 ea 01/13/23 cefdinir 300 mg capsule 300 mg PO BID #6 caps 02/08/23 peg-electrolyte solution 420 gram 240 ml PO Q10M #4,000 mL 02/27/23 oral solution Allergies Allergy/AdvReac Type Severity Reaction Status Date / Time Penicillins Allergy Intermediate Rash Verified 02/27/23 11:36 aspirin [ASA] AdvReac Intermediate GI BLEED, Verified 02/27/23 11:36 Headaches Review of Systems Review of Systems Yes all other systems are reviewed and are negative Gastrointestinal: Reports as per HPI [facility] Past Medical History Medical History Anemia Aortic aneurysm Arthritis Back pain Cancer COPD (chronic obstructive pulmonary disease) COVID-19 Depression Difficulty swallowing Elevated cholesterol Esophageal stricture GERD (gastroesophageal reflux disease) History of chemotherapy History of epistaxis HTN (hypertension) Hx of radiation therapy Lumbar radiculitis Normocytic anemia Osteoarthritis of left shoulder Pain around PEG tube site Post laminectomy syndrome Pulmonary nodule Thyroid disease Uses feeding tube Surgical History H/O colonoscopy History of back surgery History of esophagogastroduodenoscopy (EGD) History of nasal surgery History of transurethral resection of prostate Family History Family History Father Brain cancer Mother CVD (cardiovascular disease) Maternal Aunt Diabetes Social History Social History Household Members: Family Household Members Other:: 3 Housing: Apartment Do you presently have visiting nurse or other home services: No (Daughter is pt's HOME CHILD CARE PROVIDER) Alcohol intake: never Patient Tobacco Use Status: Former Tobacco user Quit Date: 40 years ago Tobacco use type: Cigarette Cigarette Packs Per Day: 3 Years Smoked: 25 e-Cigarette/Vaping Use: Never Used Second Hand Smoke Exposure: No Advance Directives: Yes Advance Directives on File: Yes Advance Directives Date on File: 03/04/21 service: No Current occupational status: disabled Physical Exam ED Vital Signs: Vital Signs - 24 hr 03/14/23 18:01 03/14/23 19:04 Temperature 99.0 F 99.0 F Pulse Rate 100 91 Respiratory Rate 18 12 Blood Pressure 108/55 L 112/58 L Pulse Oximetry 96 96 Oxygen Delivery Method Room Air Room Air BMI result Body Mass Index 18.8 Appearance: Alert. Oriented X3. No acute distress. Cachetic Head: normocephalic, atraumatic. Eyes: Pupils equal, round and reactive to light. ENT: Pharynx normal. No tonsillar swelling or exudate. Neck: Normal inspection. CVS: Normal heart rate and rhythm. Pulses normal. Respiratory: No respiratory distress. Breath sounds normal. Abdomen: Soft and nontender. +BS x4. PEG in place with brown drainage on gauze, mucus at site with erythema and irritation Skin: Skin warm and dry. Normal skin color. Normal skin turgor. No rashes. Extremities: thin and frail x4, no swelling Neuro/psych: Oriented X 3. No motor deficit. No sensory deficit. CN II-XII intact. Normal speech and cognition. GI Inspection: Yes G-tube present (brownish leakage from sides of site with erythema of the skin surrounding) Palpation (GI): Soft to palpation and nontender Procedures Feeding Tube Replacement Type of Tube: gastrostomy Insertion Site Prior to Procedure: erythematous and excoriated Azerbaijani Tube Size (F): 22 Balloon size (mL): 10 Verification of Placement: KUB and gastrografin injection Tube Secured by: tape/dressing Patient Tolerated Procedure: well and no complications Course Course Course Narrative: RME: 72yo M w/PMHx anemia, COPD, GERD, HLD, OA, G-tube, c/o leaking around G-tube since last night. Also reports everything they put in comes out. denies N/V Patient was evaluated in our ED on 02/16 for similar sx and had G-tube replaced at that time Abdomen w/G-tube noted to L side with surrounding drainage soaking shirt Full HPI, ROS and PE to be performed by primary ED provider. Medical Decision Making Medical Decision Making MDM Narrative: Lawrence is a 72 year old patient with a history of anemia, LUISA, COPD, and throat cancer w/ cervical lymphadenopathy, chronic PEG. Presents today due to his G-tube being dysfunctional since last night. New 22 Fr 7-10mL G-tube placed and proper placement confirmed. stable for discharge. Differential Diagnosis Differential Diagnoses: The differential diagnosis associated with the presentation includes G-tube dysfunction due to improper placement, g-tube dysfunction due to hardware malfunction, g-tube dysfunction due to unknown trauma to site, g-tube dysfunction due to movement of hardware. Independent Interpretation I performed an independent interpretation of an: Plain X-Ray Interpretation: gastrograffin intralumenal, agree w/ radiology read Radiology Impression Discussion of test interpretation with radiology: I have reviewed the radiologist's reading. Radiologist Impression: XR/XR KUB IMPRESSION: Contrast within the stomach without evidence of extraluminal contrast ? External Record Review External record reviewed: Office record, Outpatient record, Prior outpatient labs and Prior outpatient radiology Chronic Conditions Patient?s care impacted by: Other (throat cancer, dysphagia) Medications Administered Discontinued Medications Generic Name Dose Route Start Last Admin Trade Name Freq PRN Reason Stop Dose Admin Diatrizoate Meglum/Diatrizoate Sod 30 ml 03/14/23 19:47 03/14/23 19:48 Diatrizoate Meglumine, Sodium 30 Ml Solution PO 03/14/23 19:48 30 ml ONCE ONE Administration Critical Care Time Critical Care Time Critical Care Time: No Discharge Plan Discharge Clinical Impression: Malfunction of gastrostomy tube Patient Disposition: Home, Self-Care Instructions: How to Use and Care for Your PEG Tube (ED) Additional Instructions: Your G-tube was replaced today in the ER. It is safe for immediate use. If you develop new or worsening symptoms call 911 or come back to the ER for further evaluation. Prescriptions: No Action Anoro Ellipta 62.5-25 mcg/actuation Blister With Device 1 inh INHALATION DAILY albuterol sulfate 90 mcg/actuation HFA aerosol inhaler 2 puff PO Q4H PRN (Reason: for dyspnea) gabapentin 400 mg capsule 400 mg feeding tube TID Qty: 30 0RF cyanocobalamin (vitamin B-12) [Vitamin B-12] 1,000 mcg tablet 1,000 mcg feeding tube DAILY Qty: 30 0RF levothyroxine 75 mcg tablet 75 mcg feeding tube DAILY@0600 Qty: 30 0RF acetaminophen [M-PAP] 160 mg/5 mL liquid 10 ml feeding tube TID PRN (Reason: pain) triamcinolone acetonide 0.5 % cream 1 appl topical BID tizanidine 4 mg tablet 1 tab PO BEDTIME fluticasone propionate [Flovent HFA] 110 mcg/actuation HFA aerosol inhaler 2 puff INHALATION BID duloxetine 30 mg capsule,delayed release(DR/EC) 1 cap PO DAILY duloxetine 60 mg capsule,delayed release(DR/EC) 1 cap PO DAILY levocetirizine 5 mg tablet 1 tab PO BEDTIME omeprazole 40 mg capsule,delayed release(DR/EC) 1 cap PO DAILY fluticasone propionate 50 mcg/actuation spray,suspension 1 spray intranasal DAILY amlodipine 2.5 mg Tablet 2.5 mg PO DAILY Qty: 30 0RF Protocol: Hold for SBP< HOLD for SBP < : 90 tramadol 50 mg tablet 50 mg PO TID PRN (Reason: Pain, Moderate (Pain Scale 4-6) cefdinir 300 mg capsule 300 mg PO BID Qty: 6 0RF ferrous sulfate 325 mg (65 mg iron) tablet,delayed release (DR/EC) 325 mg PO DAILY (DME) cane Device See Rx Instructions .Route Qty: 1 0RF Rx Instructions: As directed Alive Men's 50 Plus Multivit 120 mcg-150 mcg -50 mg tablet,chewable PO DAILY timolol maleate 0.5 % drops 1 drp ophthalmic (eye) QAM peg-electrolyte soln 420 gram recon soln 240 ml PO Q10M Qty: 4000 0RF Rx Instructions: until fecal effluent is clear;
[2023-03-14 19:04] VITALS: BP 112/58; PULSE 91; RESP 12; TEMP 37.2; O2SAT 96
== END 2023-03-14 21:47 | disposition home or self-care (01) ==
PROVIDERS: Emergency Provider Internal Medicine; PCP Internal Medicine
DX: K94.23 Gastrostomy malfunction (principal); C14.0 Malignant neoplasm of pharynx, unspecified; R59.1 Generalized enlarged lymph nodes; I10 Essential (primary) hypertension; E78.5 Hyperlipidemia, unspecified; D64.9 Anemia, unspecified; J44.9 Chronic obstructive pulmonary disease, unspecified; Z79.899 Other long term (current) drug therapy
CPT/HCPCS: 43762; 74018; 99284; 99285

== ENCOUNTER 2023-03-27 00:57 | Emergency (ER) | payer OTHER, SELFPAY ==
--- NOTE | ~2023-03-27 | CT_ITS ---
EXAMINATION: CT SOFT TISSUE NECK WITH CONTRAST CLINICAL INFORMATION: History of cancer status post radiation, question recurrence COMPARISON: 02/05/2023 TECHNIQUE: Following the intravenous administration of 60 mL of Omnipaque 350 intravenous contrast, helical imaging was performed in the axial plane with generation of coronal and sagittal reformatted images. This CT examination was performed using dose optimization techniques as appropriate, variously including the following: *Automated exposure control *Adjustment of mA and/or kV according to patient size (this includes techniques or standardized protocols for targeted exams where dose is matched to indication/reason for exam; i.e. extremities or head) *Use of iterative reconstruction technique DLP: 343 mGy-cm FINDINGS: In comparison to 02/05/2023 there is a significantly increased region of mildly low attenuation in the left submandibular region measuring approximately 2.8 x 1.6 cm on image 47/126. The medial margin of this region abuts the hyoid bone, and some adjacent soft tissue thickening is noted laterally and possibly posteriorly. Redemonstrated soft tissue thickening within the bilateral carotid spaces and retropharyngeal space which is suspected to reflect posttreatment changes. Redemonstrated findings of fatty replacement of the bilateral carotid and submandibular glands. A few submandibular lymph nodes appear similar to slightly increased in size from prior, measuring up to 1.3 cm in the axial plane. There is scattered calcification along the left carotid vasculature without significant stenosis. The thyroid gland is unremarkable. There is significantly improved aeration in the bilateral upper lobes compared to prior with some curvilinear opacity which may reflect developing scarring. Visualized ascending aorta appears dilated to approximately 4.4 cm. Visualized portions of the brain parenchyma are unremarkable. The mastoid air cells are well aerated. The paranasal sinuses are clear. The visualized orbits are unremarkable. The mandibular condyles are well-seated in the condylar fossa. There are degenerative changes with disc space narrowing and endplate osteophyte formation in the lower cervical spine. CT/CT soft tissue neck w IV con IMPRESSION: 1. Region of mildly low attenuation in the left submandibular region measuring up to 2.8 cm, significantly increased from 02/05/2023. Density is slightly less than typical for soft tissue, and this could represent an ill-defined region of complex fluid. In the proper clinical setting, phlegmonous change would be a possibility, versus evolving posttreatment changes. Recurrent tumor in this region would be difficult to entirely exclude. 2. Few submandibular lymph nodes appear similar to slightly increased in size from prior and may be reactive. 3. Significantly improved aeration in the bilateral upper lobes compared to prior with some curvilinear opacity which may reflect developing scarring. 4. Partially visualized dilated ascending aorta to approximately 4.4 cm.
[2023-03-27 01:12] VITALS: BP 166/79; PULSE 79; RESP 18; TEMP 36.1; O2SAT 100; BMI 20.2
--- NOTE | 2023-03-27 03:55 | ED_ITS ---
HPI - Dental/Oral General Chief complaint: Dental/Oral Stated complaint: Infection in mouth? Time Seen by Provider: 03/27/23 03:40 Source: patient Mode of arrival: ambulatory Limitations: no limitations History of Present Illness HPI Narrative: Patient history of head and neck cancer status post radiation treatment and surgery 20 years ago comes in with increased swelling and hardness at left submandibular area for last 1 month patient a biopsy a month ago for same no fever no chills no trismus Related Data Home Medications Medication Instructions Recorded Confirmed umeclidinium 62.5 mcg-vilanterol 1 inh inhalation DAILY 06/21/20 02/20/23 25 mcg/actuation powdr for inhalation (Anoro Ellipta) albuterol sulfate 90 mcg/actuation 2 puff PO Q4H PRN for dyspnea 03/18/22 02/20/23 aerosol inhaler acetaminophen 160 mg/5 mL oral 10 ml feeding tube TID PRN pain 11/18/22 02/20/23 liquid (M-PAP) duloxetine 30 mg capsule,delayed 1 cap PO DAILY 11/18/22 02/20/23 release duloxetine 60 mg capsule,delayed 1 cap PO DAILY 11/18/22 02/20/23 release fluticasone propionate 110 2 puff inhalation BID 11/18/22 02/20/23 mcg/actuation HFA aerosol inhaler (Flovent HFA) fluticasone propionate 50 1 spray intranasal DAILY 11/18/22 02/20/23 mcg/actuation nasal spray,suspension levocetirizine 5 mg tablet 1 tab PO BEDTIME 11/18/22 02/20/23 omeprazole 40 mg capsule,delayed 1 cap PO DAILY 11/18/22 02/20/23 release tizanidine 4 mg tablet 1 tab PO BEDTIME 11/18/22 02/20/23 triamcinolone acetonide 0.5 % 1 appl topical BID 11/18/22 02/20/23 topical cream ferrous sulfate 325 mg (65 mg 325 mg PO DAILY 01/13/23 02/20/23 iron) tablet,delayed release tramadol 50 mg tablet 50 mg PO TID PRN Pain, Moderate 02/02/23 02/20/23 (Pain Scale 4-6 [id number] 120 mcg-lutein tab PO DAILY 02/27/23 150 mcg-herb 50 mg chewable tablet (Alive Men's 50 Plus Multivitamin) timolol maleate 0.5 % eye drops 1 drp ophthalmic (eye) QAM 02/27/23 Previous Rx's Medication Instructions Recorded cyanocobalamin (vitamin B-12) 1,000 mcg feeding tube DAILY #30 07/18/22 1,000 mcg tablet (Vitamin B-12) tabs gabapentin 400 mg capsule 400 mg feeding tube TID #30 caps 07/18/22 levothyroxine 75 mcg tablet 75 mcg feeding tube DAILY@0600 #30 07/18/22 tabs amlodipine 2.5 mg tablet 2.5 mg PO DAILY #30 tabs 11/24/22 cane #1 ea 01/13/23 cefdinir 300 mg capsule 300 mg PO BID #6 caps 02/08/23 peg-electrolyte solution 420 gram 240 ml PO Q10M #4,000 mL 02/27/23 oral solution Allergies Allergy/AdvReac Type Severity Reaction Status Date / Time Penicillins Allergy Intermediate Rash Verified 02/27/23 11:36 aspirin [ASA] AdvReac Intermediate GI BLEED, Verified 02/27/23 11:36 Headaches Review of Systems Review of Systems: Yes all other systems are reviewed and are negative PMFSH Past Medical History Medical History Anemia Aortic aneurysm Arthritis Back pain Cancer COPD (chronic obstructive pulmonary disease) COVID-19 Depression Difficulty swallowing Elevated cholesterol Esophageal stricture GERD (gastroesophageal reflux disease) History of chemotherapy History of epistaxis HTN (hypertension) Hx of radiation therapy Lumbar radiculitis Normocytic anemia Osteoarthritis of left shoulder Pain around PEG tube site Post laminectomy syndrome Pulmonary nodule Thyroid disease Uses feeding tube Surgical History H/O colonoscopy History of back surgery History of esophagogastroduodenoscopy (EGD) History of nasal surgery History of transurethral resection of prostate Family History Family History Father Brain cancer Mother CVD (cardiovascular disease) Maternal Aunt Diabetes Social History Social History Household Members: Family Household Members Other:: 3 Housing: Apartment Do you presently have visiting nurse or other home services: No (Daughter is pt's DIRECTOR OF RECREATION THERAPY) Alcohol intake: never Patient Tobacco Use Status: Former Tobacco user Quit Date: 40 years ago Tobacco use type: Cigarette Cigarette Packs Per Day: 3 Years Smoked: 25 e-Cigarette/Vaping Use: Never Used Second Hand Smoke Exposure: No Advance Directives: Yes Advance Directives on File: Yes Advance Directives Date on File: 03/04/21 service: No Current occupational status: disabled Physical Exam Vital Signs: Vital Signs: Last Vital Signs Temp 97.0 F 03/27/23 01:12 Pulse 79 03/27/23 01:12 Resp 18 03/27/23 01:12 BP 166/79 H 03/27/23 01:12 Pulse Ox 100 03/27/23 01:12 O2 Del Method Room Air 03/27/23 01:12 BMI result Body Mass Index 20.2 Appearance: Alert. Oriented X3. No acute distress. Eyes: PERRLA, No Nystagmus ENT: Pharynx normal. Oral Mucosa moist soft tissue tenderness and swelling left sub mandibular area Neck: Normal inspection. Neck supple. CVS: Normal heart rate and rhythm. Pulses normal. Respiratory: No respiratory distress. Equal air entry bilateral, no wheezing/rales/rhonchi Abdomen: Soft and nontender. Bowel sounds are present, G-tube in place Skin: Skin warm and dry. Normal skin color. Normal skin turgor. Extremities: No lower extremity edema. No calf tenderness Neuro: Oriented X 3. No motor deficit. Medications Administered Discontinued Medications Generic Name Dose Route Start Last Admin Trade Name Freq PRN Reason Stop Dose Admin Sodium Chloride 1,000 mls @ 999 mls/hr 03/27/23 03:56 03/27/23 06:11 Ns IV 03/27/23 04:56 Infused .Q1H1M ONE Infusion Iohexol 60 ml 03/27/23 05:06 03/27/23 05:07 Iohexol 350 Mg/Ml 100 Ml Infus..Btl IV 03/27/23 05:07 60 ml ONCE ONE Administration Morphine Sulfate 4 mg 03/27/23 05:10 03/27/23 05:17 Morphine Sulfate 4 Mg/Ml Cartridge IVPUSH 03/27/23 05:11 4 mg ONCE ONE Administration Protocol Ondansetron HCl 4 mg 03/27/23 05:10 03/27/23 05:17 Ondansetron Hcl 4 Mg/2 Ml Vial IVPUSH 03/27/23 05:11 4 mg ONCE ONE Administration Medical Decision Making Medical Decision Making [facility] Narrative: patient with phlegmonous swelling the site of left submandibular biopsy no signs of abscess already on antibiotic will discharge patient home advised to continue same and follow up with the ENT Lab Data [facility] Lab Attestation statement: I reviewed the patient's lab results. 03/27/23 04:15 03/27/23 04:15 Labs: Lab Results 03/27/23 03/27/23 03/27/23 Range/Units 04:15 04:15 04:15 WBC 7.8 (4.8-10.8) X10*3/uL RBC 2.77 L (4.60-5.80) X10*6/uL Hgb 9.0 L (14.0-18.0) g/dl Hct 28.0 L (42.0-52.0) % MCV 101.1 H (80.0-98.0) fL MCH 32.5 (27.0-33.0) pg MCHC 32.1 (31.0-36.0) g/dl RDW 16.4 H (11.0-16.0) % Plt Count 492 H (160-400) X10*3/uL MPV 9.4 (9.4-12.4) fL Immature Gran % (Auto) 0.8 H (0.0-0.4) % Neut % (Auto) 78.6 H (45-73) % Lymph % (Auto) 8.8 L (20-40) % [place] % (Auto) 9.0 (2-11) % Eos % (Auto) 2.3 (0-4) % Baso % (Auto) 0.5 (0-2) % Lymph # (Auto) 0.7 L (1.2-4.9) X10*3/uL [place] # (Auto) 0.7 (0.1-1.2) X10*3/uL Eos # (Auto) 0.2 (0.0-0.4) X10*3/uL Baso # (Auto) 0.0 (0.0-0.2) X10*3/uL Abs Immat Gran (auto) 0.06 H (0.00-0.03) X10*3/uL Absolute Neuts (auto) 6.1 (2.0-8.3) x10*3/uL Absolute Nucleated RBC 0.000 (0.0-0.012) X10*3/uL Nucleated RBC % (auto) 0.0 (0.0-0.2) /100WBC Sodium 137 (135-145) mmol/L Potassium 5.0 D (3.3-5.1) mmol/L Chloride 100 (96-108) mmol/L Carbon Dioxide 30 H (22-29) mmol/L Anion Gap 12 (12-20) BUN 15 (9-16) mg/dL Creatinine 0.75 (0.5-1.4) mg/dL Estim Creat Clear Calc 73.7 Estimated GFR > 60 Random Glucose 106 (60-115) mg/dL Lactic Acid 1.0 (0.5-2.0) mmol/L Calcium 10.4 H D (8.4-10.2) mg/dL Total Bilirubin 0.2 (0.0-1.0) mg/dL AST 35 (5-37) U/L ALT 15 (0-40) U/L Alkaline Phosphatase 88 (39-117) U/L Total Protein 8.2 H (6.5-8.0) g/dL Albumin 3.6 (3.5-5.0) g/dL Radiology Impression Discussion of test interpretation with radiology: I have reviewed the radi ologist's reading. Radiologist Impression: CT/CT soft tissue neck w IV con IMPRESSION: 1.? Region of mildly low attenuation in the left submandibular region measuring up to 2.8 cm, significantly increased from 02/05/2023. Density is slightly less than typical for soft tissue, and this could represent an ill-defined region of complex fluid. In the proper clinical setting, phlegmonous change would be a possibility, versus evolving posttreatment changes. Recurrent tumor in this region would be difficult to entirely exclude. 2.? Few submandibular lymph nodes appear similar to slightly increased in size from prior and may be reactive. 3.? Significantly improved aeration in the bilateral upper lobes compared to prior with some curvilinear opacity which may reflect developing scarring. 4.? Partially visualized dilated ascending aorta to approximately 4.4 cm. Discharge Plan Discharge Clinical Impression: Submandibular swelling Patient Disposition: Home, Self-Care Instructions: Chronic Neck Pain (DC) Additional Instructions: Continue antibiotics and follow-up with your specialist Swelling is likely after the biopsy Prescriptions: No Action Anoro Ellipta 62.5-25 mcg/actuation Blister With Device 1 inh INHALATION DAILY albuterol sulfate 90 mcg/actuation HFA aerosol inhaler 2 puff PO Q4H PRN (Reason: for dyspnea) gabapentin 400 mg capsule 400 mg feeding tube TID Qty: 30 0RF cyanocobalamin (vitamin B-12) [Vitamin B-12] 1,000 mcg tablet 1,000 mcg feeding tube DAILY Qty: 30 0RF levothyroxine 75 mcg tablet 75 mcg feeding tube DAILY@0600 Qty: 30 0RF acetaminophen [M-PAP] 160 mg/5 mL liquid 10 ml feeding tube TID PRN (Reason: pain) triamcinolone acetonide 0.5 % cream 1 appl topical BID tizanidine 4 mg tablet 1 tab PO BEDTIME fluticasone propionate [Flovent HFA] 110 mcg/actuation HFA aerosol inhaler 2 puff INHALATION BID duloxetine 30 mg capsule,delayed release(DR/EC) 1 cap PO DAILY duloxetine 60 mg capsule,delayed release(DR/EC) 1 cap PO DAILY levocetirizine 5 mg tablet 1 tab PO BEDTIME omeprazole 40 mg capsule,delayed release(DR/EC) 1 cap PO DAILY fluticasone propionate 50 mcg/actuation spray,suspension 1 spray intranasal DAILY amlodipine 2.5 mg Tablet 2.5 mg PO DAILY Qty: 30 0RF Protocol: Hold for SBP< HOLD for SBP < : 90 tramadol 50 mg tablet 50 mg PO TID PRN (Reason: Pain, Moderate (Pain Scale 4-6) cefdinir 300 mg capsule 300 mg PO BID Qty: 6 0RF ferrous sulfate 325 mg (65 mg iron) tablet,delayed release (DR/EC) 325 mg PO DAILY (DME) cane Device See Rx Instructions .Route Qty: 1 0RF Rx Instructions: As directed Alive Men's 50 Plus Multivit 120 mcg-150 mcg -50 mg tablet,chewable PO DAILY timolol maleate 0.5 % drops 1 drp ophthalmic (eye) QAM peg-electrolyte soln 420 gram recon soln 240 ml PO Q10M Qty: 4000 0RF Rx Instructions: until fecal effluent is clear; Interventions: ED Discharge Assessment Last Done: 03/27/23 06:33 Discharge Date/Time: 03/27/23 06:35
[2023-03-27] MEDS: 0.9 % Sodium Chloride 1,000 ML 999 ML IV (04:22)
[2023-03-27 04:25] LABS: MANUAL DIFF FLAG NO
[2023-03-27 04:26] LABS: Basophils Percent Auto 0.5 % (0-2); Eosinophils Absolute Auto 0.2 X10*3/uL (0.0-0.4); Eosinophils Percent Auto 2.3 % (0-4); Imm Gran Abs Auto 0.06 X10*3/uL (0.00-0.03); Imm Gran Pct Auto 0.8 % (0.0-0.4); Lymphocytes Absolute Auto 0.7 X10*3/uL (1.2-4.9); Lymphocytes Percent Auto 8.8 % (20-40); Mean Corpuscular HGB Conc 32.1 g/dl (31.0-36.0); Mean Corpuscular Hemoglobin 32.5 pg (27.0-33.0); Mean Corpuscular Volume 101.1 fL (80.0-98.0); Mean Platelet Volume 9.4 fL (9.4-12.4); Monocytes Absolute Auto 0.7 X10*3/uL (0.1-1.2); Neutrophils Absolute Auto 6.1 x10*3/uL (2.0-8.3); Neutrophils Percent Auto 78.6 % (45-73); Platelet Count 492 X10*3/uL (160-400); Red Blood Count 2.77 X10*6/uL (4.60-5.80); Red Cell Distribution Width 16.4 % (11.0-16.0); White Blood Count 7.8 X10*3/uL (4.8-10.8)
[2023-03-27 04:43] LABS: Alanine Aminotransferase 15 U/L (0-40); Albumin Level 3.6 g/dL (3.5-5.0); Alkaline Phosphatase 88 U/L (39-117); Anion Gap 12 (12-20); Aspartate Amino Transferase 35 U/L (5-37); Bilirubin Total 0.2 mg/dL (0.0-1.0); Blood Urea Nitrogen 15 mg/dL (9-16); Calcium 10.4 mg/dL (8.4-10.2); Carbon Dioxide 30 mmol/L (22-29); Chloride 100 mmol/L (96-108); Creatinine Clr Calc Pharmacy 73.7; Estimated Glomerular Filt Rate > 60; Glucose Random 106 mg/dL (60-115); Sodium 137 mmol/L (135-145); Total Protein 8.2 g/dL (6.5-8.0)
[2023-03-27] MEDS: iohexoL 350 MG/ML 100 ML INFUS..BTL 60 ML IV (05:07)
[2023-03-27] MEDS: Morphine Sulfate 4 MG/ML CARTRIDGE IVPUSH (05:17)
[2023-03-27] MEDS: ondansetron HCL 4 MG/2 ML VIAL IVPUSH (05:17)
--- NOTE | 2023-03-27 05:54 | PC.NURSE ---
ot reports feeling a little better, IV fluids still running.
== END 2023-03-27 06:35 | disposition home or self-care (01) ==
PROVIDERS: Emergency Provider Internal Medicine; PCP Internal Medicine
DX: M27.2 Inflammatory conditions of jaws (principal); K08.89 Other specified disorders of teeth and supporting structures; Z87.891 Personal history of nicotine dependence; Z79.899 Other long term (current) drug therapy
CPT/HCPCS: 36415; 70491; 80053; 83605; 85025; 87040; 96361; 96374; 96375; 99284; J2270; J2405; Q9967

== ENCOUNTER 2023-03-30 21:07 | Inpatient (IN) | payer OTHER, SELFPAY ==
--- NOTE | 2023-03-30 | ECG_ITS ---
Test Reason : CHEST PAIN Blood Pressure : / mmHG Vent. Rate : 096 BPM Atrial Rate : 096 BPM P-R Int : 118 ms QRS Dur : 080 ms QT Int : 364 ms P-R-T Axes : 078 063 075 degrees QTc Int : 459 ms Normal sinus rhythm Normal ECG When compared to the previous EKG of No significant changes seen Referred By: Generic ED Physician Electronically Signed By:VANDA MALIK MD
--- NOTE | ~2023-03-30 | CT_ITS ---
EXAMINATION: CT ABDOMEN AND PELVIS WITHOUT AND WITHOUT CONTRAST CLINICAL INFORMATION: Rectal bleeding COMPARISON: PET/CT 02/17/2023, CT abdomen pelvis 03/18/2022 TECHNIQUE: Multidetector volumetric imaging was performed from the superior aspect of the liver through the pubic symphysis both before as well as after intravenous contrast. A total of 85 mL of Omnipaque 350 was utilized for the contrast-enhanced portion of the study. 2 contrast enhanced scans were performed one during the arterial phase and additional scan after a 2 minute delay. Sagittal and coronal reformatted images were obtained on the technologist's workstation. This CT examination was performed using dose optimization techniques as appropriate, variously including the following: *Automated exposure control *Adjustment of mA and/or kV according to patient size (this includes techniques or standardized protocols for targeted exams where dose is matched to indication/reason for exam; i.e. extremities or head) *Use of iterative reconstruction technique DLP: 967 mGy-cm FINDINGS: LUNG BASES: There is masslike area of infiltration in the right middle lobe which is smaller but more confluent when compared to 03/09/2023. Bilateral lower lobe infiltrates are seen. Groundglass opacities are present at both lung bases the largest measuring 8 mm in the right lower lobe (10:14). On the recent PET/CT, findings were felt to be inflammatory. LIVER, GALLBLADDER, AND BILIARY TREE: The liver is enlarged at 19 cm in cephalocaudad dimension. In size, shape, and attenuation. A benign cyst is present in the left lobe of the liver. No worrisome solid focal hepatic lesion or biliary ductal dilatation is present. The gallbladder is unremarkable with no evidence of radiopaque gallstones, gallbladder wall thickening, or obvious pericholecystic inflammatory changes. PANCREAS: Unremarkable. SPLEEN: Calcified splenic granuloma is present. ADRENAL GLANDS: Unremarkable. KIDNEYS AND URETERS: Left kidney appears normal. Some scarring is seen in the right kidney. Tiny punctate calcification measuring 1 to 2 mm present in the upper pole on the right. No hydronephrosis, hydroureter, or calculi seen. No perinephric stranding. BLADDER: Unremarkable. GASTROINTESTINAL TRACT: A moderate hiatal hernia is present. A gastrostomy tube is in good position within the stomach. Contrast is present within colon as well as small bowel limiting the utility of this exam for acute GI bleed. Despite this, no area of increased extravasation is seen into bowel lumen between the precontrast scans in the delayed scans. The small and large bowel are unremarkable. The appendix is not identified but there is no evidence of appendicitis. ABDOMINAL WALL: No significant hernia is appreciated. LYMPH NODES: No retroperitoneal lymphadenopathy. VASCULAR: Calcific plaque present in the aorta and iliofemoral vessels without aneurysm. PELVIC VISCERA: A TURP defect is present in the prostate. OSSEOUS STRUCTURES: Degenerative changes are present spine. Posterior pedicular screws present at L4-L5. No bony destructive lesions CT/CT gi bleed abd pel wo/w IVcon IMPRESSION: 1. A cause for the patient's rectal bleeding has not been found. No extravasation of contrast is seen into bowel lumen. The study is limited by oral contrast media within both colon and small bowel. 2. Other incidental findings as described above. Fleischner guidelines were followed.
[2023-03-30 21:29] VITALS: BP 124/60; BP 97/54; PULSE 104; PULSE 108; RESP 18; TEMP 37.4; O2SAT 97; O2SAT 99; BMI 19.4
[2023-03-30 21:56] LABS: MANUAL DIFF FLAG NO
[2023-03-30 22:03] LABS: Basophils Absolute Auto 0.1 X10*3/uL (0.0-0.2); Basophils Percent Auto 1.1 % (0-2); Eosinophils Absolute Auto 0.1 X10*3/uL (0.0-0.4); Eosinophils Percent Auto 2.3 % (0-4); Imm Gran Abs Auto 0.03 X10*3/uL (0.00-0.03); Imm Gran Pct Auto 0.6 % (0.0-0.4); Lymphocytes Absolute Auto 0.7 X10*3/uL (1.2-4.9); Lymphocytes Percent Auto 14.3 % (20-40); Mean Corpuscular HGB Conc 31.3 g/dl (31.0-36.0); Mean Corpuscular Hemoglobin 32.3 pg (27.0-33.0); Mean Corpuscular Volume 103.2 fL (80.0-98.0); Mean Platelet Volume 9.7 fL (9.4-12.4); Monocytes Absolute Auto 0.7 X10*3/uL (0.1-1.2); Monocytes Percent Auto 15.6 % (2-11); Neutrophils Absolute Auto 3.1 x10*3/uL (2.0-8.3); Neutrophils Percent Auto 66.1 % (45-73); Platelet Count 403 X10*3/uL (160-400); Red Blood Count 1.86 X10*6/uL (4.60-5.80); Red Cell Distribution Width 16.6 % (11.0-16.0); White Blood Count 4.7 X10*3/uL (4.8-10.8)
[2023-03-30 22:07] LABS: Hematocrit 19.2 % (42.0-52.0)
--- NOTE | 2023-03-30 22:15 | ED_ITS ---
HPI - Male Genitourinary General Chief complaint: Urogenital-Male Stated complaint: rectal bleeding, chest pains, dizziness, per ems Time Seen by Provider: 03/30/23 21:50 Source: patient and EMS Mode of arrival: EMS History of Present Illness HPI Narrative: 72-year-old male spot in by EMS for 2 days of blood in diarrhea and associated abdominal discomfort as well as chest discomfort for 2 days but otherwise denies any nausea or vomiting and has been having a history of anemia for which he is following with Dr. Foster. He is not currently on any blood thinners. Related Data Home Medications Medication Instructions Recorded Confirmed umeclidinium 62.5 mcg-vilanterol 1 inh inhalation DAILY 06/21/20 02/20/23 25 mcg/actuation powdr for inhalation (Anoro Ellipta) albuterol sulfate 90 mcg/actuation 2 puff PO Q4H PRN for dyspnea 03/18/22 02/20/23 aerosol inhaler acetaminophen 160 mg/5 mL oral 10 ml feeding tube TID PRN pain 11/18/22 02/20/23 liquid (M-PAP) duloxetine 30 mg capsule,delayed 1 cap PO DAILY 11/18/22 02/20/23 release duloxetine 60 mg capsule,delayed 1 cap PO DAILY 11/18/22 02/20/23 release fluticasone propionate 110 2 puff inhalation BID 11/18/22 02/20/23 mcg/actuation HFA aerosol inhaler (Flovent HFA) fluticasone propionate 50 1 spray intranasal DAILY 11/18/22 02/20/23 mcg/actuation nasal spray,suspension levocetirizine 5 mg tablet 1 tab PO BEDTIME 11/18/22 02/20/23 omeprazole 40 mg capsule,delayed 1 cap PO DAILY 11/18/22 02/20/23 release tizanidine 4 mg tablet 1 tab PO BEDTIME 11/18/22 02/20/23 triamcinolone acetonide 0.5 % 1 appl topical BID 11/18/22 02/20/23 topical cream ferrous sulfate 325 mg (65 mg 325 mg PO DAILY 01/13/23 02/20/23 iron) tablet,delayed release tramadol 50 mg tablet 50 mg PO TID PRN Pain, Moderate 02/02/23 02/20/23 (Pain Scale 4-6 [id number] 120 mcg-lutein tab PO DAILY 02/27/23 150 mcg-herb 50 mg chewable tablet (Alive Men's 50 Plus Multivitamin) timolol maleate 0.5 % eye drops 1 drp ophthalmic (eye) QAM 02/27/23 Previous Rx's Medication Instructions Recorded cyanocobalamin (vitamin B-12) 1,000 mcg feeding tube DAILY #30 07/18/22 1,000 mcg tablet (Vitamin B-12) tabs gabapentin 400 mg capsule 400 mg feeding tube TID #30 caps 07/18/22 levothyroxine 75 mcg tablet 75 mcg feeding tube DAILY@0600 #30 07/18/22 tabs amlodipine 2.5 mg tablet 2.5 mg PO DAILY #30 tabs 11/24/22 cane #1 ea 01/13/23 cefdinir 300 mg capsule 300 mg PO BID #6 caps 02/08/23 peg-electrolyte solution 420 gram 240 ml PO Q10M #4,000 mL 02/27/23 oral solution Allergies Allergy/AdvReac Type Severity Reaction Status Date / Time Penicillins Allergy Intermediate Rash Verified 02/27/23 11:36 aspirin [ASA] AdvReac Intermediate GI BLEED, Verified 02/27/23 11:36 Headaches Review of Systems Review of Systems: Pertinent positives and negatives as stated in HPI [facility] Past Medical History Source: nursing notes reviewed Medical History Anemia Aortic aneurysm Arthritis Back pain Cancer COPD (chronic obstructive pulmonary disease) COVID-19 Depression Difficulty swallowing Elevated cholesterol Esophageal stricture GERD (gastroesophageal reflux disease) History of chemotherapy History of epistaxis HTN (hypertension) Hx of radiation therapy Lumbar radiculitis Normocytic anemia Osteoarthritis of left shoulder Pain around PEG tube site Post laminectomy syndrome Pulmonary nodule Thyroid disease Uses feeding tube Surgical History H/O colonoscopy History of back surgery History of esophagogastroduodenoscopy (EGD) History of nasal surgery History of transurethral resection of prostate Family History Family History Father Brain cancer Mother CVD (cardiovascular disease) Maternal Aunt Diabetes Social History Social History Household Members: Family Household Members Other:: 3 Housing: Apartment Do you presently have visiting nurse or other home services: No (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) Alcohol intake: never Patient Tobacco Use Status: Former Tobacco user Quit Date: 40 years ago Tobacco use type: Cigarette Cigarette Packs Per Day: 3 Years Smoked: 25 Smoked in Last 30 Days: No e-Cigarette/Vaping Use: Never Used Second Hand Smoke Exposure: No Use of substances other than those prescribed or required for medical reasons: No Advance Directives: Yes Advance Directives on File: Yes Advance Directives Date on File: 03/04/21 service: No Current occupational status: disabled Physical Exam Vital Signs: Vital Signs: Last Vital Signs Temp 98.9 F 03/31/23 00:25 Pulse 82 03/31/23 00:25 Resp 16 03/31/23 00:25 BP 132/63 03/31/23 00:25 Pulse Ox 100 03/30/23 23:07 O2 Del Method Room Air 03/30/23 23:07 BMI result Body Mass Index 19.4 VITAL SIGNS: Reviewed. GENERAL: Cachectic, pale, in mild distress. HEAD: Normocephalic/atraumatic EYES: PERRLA, EOMI EARS: Ext canals without abnormality NOSE: Nares patent bilateral OROPHARYNX: no oral lesions noted, posterior pharynx clear NECK: Supple, no adenopathy LUNGS: Normal breath sounds. No adventitious sounds or accessory muscle use. SpO2<99> CARDIOVASCULAR: Regular rate and rhythm without noted murmurs, no JVD or lower extremity edema. ABDOMEN: Soft, diffuse tenderness to palpation, non-distended with bowel sounds, PEG is in good place. EVI: No hemorrhoids, rectal vault with soft melena/very dark red stool, no gross hematochezia, good rectal tone MUSCULOSKELETAL: No tenderness, deformities, or effusions noted on gross inspection. EXTREMITIES: No cyanosis, clubbing or edema. SKIN: Inspection of the skin reveals no rashes NEUROLOGIC: Alert and oriented x 4. Strength and sensation to light touch were grossly intact x 4. Medications Administered Discontinued Medications Generic Name Dose Route Start Last Admin Trade Name Freq PRN Reason Stop Dose Admin Sodium Chloride 500 mls @ 999 mls/hr 03/30/23 22:15 03/30/23 23:12 Ns IV 03/30/23 22:45 999 mls/hr .Q31M FRANCK Administration Iohexol 85 ml 03/30/23 23:40 03/30/23 23:41 Iohexol 350 Mg/Ml 100 Ml Infus..Btl IV 03/30/23 23:41 85 ml ONCE ONE Administration Pantoprazole Sodium 80 mg 03/30/23 22:18 03/30/23 23:13 Pantoprazole Sodium 40 Mg/10 Ml Vial IVPUSH 03/30/23 22:19 80 mg ONCE ONE Administration Medical Decision Making Medical Decision Making MDM Narrative: 72-year-old male with history and clinical presentation DDX: Upper GI bleed, lower GI bleed, gastroenteritis, cancer recurrence. I reviewed all laboratory investigation, hematologic indices are consistent with GI bleed with a significant drop in hemoglobin and hematocrit, platelet count is chronically within normal limits there is no leukocytosis or left shift. Notably patient did not report any infectious symptoms and is afebrile. Chemistry in sees are not significant for LUISA, electrolyte derangements or liver enzyme abnormalities. Troponin is less than 2.7 in suspect that the chest discomfort is likely secondary to the significant acute blood loss anemia that patient has experienced. Patient was consented and will be starting the 1st of to RBC unit transfusion shortly. He is otherwise hemodynamically stable after receiving 500 cc of normal saline. Stool guaiac was positive. Patient received 80 mg of Protonix 2245: I discussed case with inpatient hospitalist who accepts admission. Differential Diagnosis Differential Diagnoses: The differential diagnosis associated with the presentation includes Please see the discussion above Admission/Observation Consideration of admission/observation: Escalation of care including admission/observation considered Please see the discussion above Consult Healthcare Provider Management of the patient was discussed with: Hospitalist Please see the discussion above Lab Data MDM Lab Attestation statement: I reviewed the patient's lab results. Please see the discussion above 03/30/23 21:49 03/30/23 21:48 Labs: Lab Results 03/30/23 03/30/23 03/30/23 Range/Units 21:48 21:49 21:50 WBC 4.7 L (4.8-10.8) X10*3/uL RBC 1.86 L D (4.60-5.80) X10*6/uL Hgb 6.0 L* D (14.0-18.0) g/dl Hct 19.2 L* D (42.0-52.0) % MCV 103.2 H (80.0-98.0) fL MCH 32.3 (27.0-33.0) pg MCHC 31.3 (31.0-36.0) g/dl RDW 16.6 H (11.0-16.0) % Plt Count 403 H (160-400) X10*3/uL MPV 9.7 (9.4-12.4) fL Immature Gran % (Auto) 0.6 H (0.0-0.4) % Neut % (Auto) 66.1 (45-73) % Lymph % (Auto) 14.3 L (20-40) % [place] % (Auto) 15.6 H (2-11) % Eos % (Auto) 2.3 (0-4) % Baso % (Auto) 1.1 (0-2) % Lymph # (Auto) 0.7 L (1.2-4.9) X10*3/uL [place] # (Auto) 0.7 (0.1-1.2) X10*3/uL Eos # (Auto) 0.1 (0.0-0.4) X10*3/uL Baso # (Auto) 0.1 (0.0-0.2) X10*3/uL Abs Immat Gran (auto) 0.03 (0.00-0.03) X10*3/uL Absolute Neuts (auto) 3.1 (2.0-8.3) x10*3/uL Absolute Nucleated RBC 0.000 (0.0-0.012) X10*3/uL Nucleated RBC % (auto) 0.0 (0.0-0.2) /100WBC Sodium 139 (135-145) mmol/L Potassium 4.0 (3.3-5.1) mmol/L Chloride 104 (96-108) mmol/L Carbon Dioxide 28 (22-29) mmol/L Anion Gap 11 L (12-20) BUN 17 H (9-16) mg/dL Creatinine 0.61 (0.5-1.4) mg/dL Estim Creat Clear Calc 87.0 Estimated GFR > 60 Random Glucose 114 (60-115) mg/dL Calcium 9.3 D (8.4-10.2) mg/dL Total Bilirubin 0.1 (0.0-1.0) mg/dL AST 29 (5-37) U/L ALT 13 (0-40) U/L Alkaline Phosphatase 69 (39-117) U/L Troponin I High Sens < 2.7 (<3.5-35.0) ng/L Total Protein 6.9 (6.5-8.0) g/dL Albumin 3.1 L (3.5-5.0) g/dL Stool Occult Blood (NEGATIVE) Blood Type Antibody Screen Crossmatch 03/30/23 03/30/23 Range/Units 22:21 22:23 WBC (4.8-10.8) X10*3/uL RBC (4.60-5.80) X10*6/uL Hgb (14.0-18.0) g/dl Hct (42.0-52.0) % MCV (80.0-98.0) fL MCH (27.0-33.0) pg MCHC (31.0-36.0) g/dl RDW (11.0-16.0) % Plt Count (160-400) X10*3/uL MPV (9.4-12.4) fL Immature Gran % (Auto) (0.0-0.4) % Neut % (Auto) (45-73) % Lymph % (Auto) (20-40) % [place] % (Auto) (2-11) % Eos % (Auto) (0-4) % Baso % (Auto) (0-2) % Lymph # (Auto) (1.2-4.9) X10*3/uL [place] # (Auto) (0.1-1.2) X10*3/uL Eos # (Auto) (0.0-0.4) X10*3/uL Baso # (Auto) (0.0-0.2) X10*3/uL Abs Immat Gran (auto) (0.00-0.03) X10*3/uL Absolute Neuts (auto) (2.0-8.3) x10*3/uL Absolute Nucleated RBC (0.0-0.012) X10*3/uL Nucleated RBC % (auto) (0.0-0.2) /100WBC Sodium (135-145) mmol/L Potassium (3.3-5.1) mmol/L Chloride (96-108) mmol/L Carbon Dioxide (22-29) mmol/L Anion Gap (12-20) BUN (9-16) mg/dL Creatinine (0.5-1.4) mg/dL Estim Creat Clear Calc Estimated GFR Random Glucose (60-115) mg/dL Calcium (8.4-10.2) mg/dL Total Bilirubin (0.0-1.0) mg/dL AST (5-37) U/L ALT (0-40) U/L Alkaline Phosphatase (39-117) U/L Troponin I High Sens (<3.5-35.0) ng/L Total Protein (6.5-8.0) g/dL Albumin (3.5-5.0) g/dL Stool Occult Blood POSITIVE (NEGATIVE) Blood Type O Positive Antibody Screen NEGATIVE Crossmatch See Detail Radiology Impression Radiologist Impression: No acute bleed, otherwise my interpretation is in agreement with radiology's impression. External Record Review External record reviewed: Outpatient record and Prior outpatient labs Critical Care Time Critical Care Time Critical Care Time: Yes Total Critical Care Time: 30 Attestation: I personally attest to this time spent taking care of the patient. Discharge Plan Discharge Clinical Impression: ABLA (acute blood loss anemia), GI bleed Patient Disposition: Admitted As Inpatient
[2023-03-30 22:18] LABS: Alanine Aminotransferase 13 U/L (0-40); Albumin Level 3.1 g/dL (3.5-5.0); Alkaline Phosphatase 69 U/L (39-117); Anion Gap 11 (12-20); Aspartate Amino Transferase 29 U/L (5-37); Bilirubin Total 0.1 mg/dL (0.0-1.0); Blood Urea Nitrogen 17 mg/dL (9-16); Calcium 9.3 mg/dL (8.4-10.2); Carbon Dioxide 28 mmol/L (22-29); Chloride 104 mmol/L (96-108); Estimated Glomerular Filt Rate > 60; Glucose Random 114 mg/dL (60-115); Sodium 139 mmol/L (135-145); Total Protein 6.9 g/dL (6.5-8.0)
[2023-03-30 22:25] LABS: Troponin-I High Sensitivity < 2.7 ng/L (<3.5-35.0)
[2023-03-30 22:31] LABS: OBS Int Ctl Valid YES; OBS1 POSITIVE (NEGATIVE)
[2023-03-30 23:07] VITALS: BP 114/54; PULSE 87; RESP 17; TEMP 37.2; O2SAT 100
[2023-03-30] MEDS: 0.9 % Sodium Chloride 500 ML 999 ML IV (23:12)
[2023-03-30] MEDS: Pantoprazole Sodium 40 MG/10 ML VIAL 80 MG IVPUSH (23:13)
--- NOTE | 2023-03-30 23:29 | PC.NURSE ---
PT arrived via EMS with complaints of rectal bleeding, diarrhea, weakness and chest pain for two days. PT has a history of rectal bleeding and anemia. On assessment this rn noted pt's bp soft. Notified MD. Administer medications as per nov. Labs drawn, 20 gauge IV line patent and intact in right wrist. Will continue to follow plan of care
[2023-03-30] MEDS: iohexoL 350 MG/ML 100 ML INFUS..BTL 85 ML IV (23:41)
[2023-03-31] VITALS (37 sets, daily range): BP systolic 70–154; BP diastolic 41–83; PULSE 69–109; RESP 13–25; TEMP 36.5–37.5; O2SAT 95–100; BMI 20.6; BMI 21.2
--- NOTE | 2023-03-31 | P.HPHOSP_ITS ---
History of Present Illness Date of Service: 03/31/23 Chief Complaint: gi bleed 72-year-old male with past medical history of aortic aneurysm, throat cancer status post radiation therapy, hypertension, GERD, esophageal strictures, depression, COPD, among others comes into the hospital with complaints of bright red blood per rectum as well as black stools. 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 He has had diarrhea that has been black. Despite the fact that he has stopped his iron supplements about a month ago. He reports dizziness, shortness of breath on exertion, weakness, and feeling generally unwell. Denies any abdominal pain, no chest pain, no palpitations, no urinary symptoms and no lower extremity edema. He does state that for the past 1 week he has been taking [id number]-paq-vidhzpr naproxen 3 times a day for management of his throat pain On arrival to the ED patient hemodynamically stable Labs are significant for WBC count of 4.7, hemoglobin of 6 with a baseline of around 8-9, hematocrit 19.2, stool occult blood positive Patient receiving 2 units of PRBC and will be admitted for further management Review of Systems 2 Review of Systems: Yes all other systems are reviewed and are negative PMFSH Medical History Anemia Aortic aneurysm Arthritis Back pain Cancer COPD (chronic obstructive pulmonary disease) COVID-19 Depression Difficulty swallowing Elevated cholesterol Esophageal stricture GERD (gastroesophageal reflux disease) History of chemotherapy History of epistaxis HTN (hypertension) Hx of radiation therapy Lumbar radiculitis Normocytic anemia Osteoarthritis of left shoulder Pain around PEG tube site Post laminectomy syndrome Pulmonary nodule Thyroid disease Uses feeding tube Family History Father Brain cancer Mother CVD (cardiovascular disease) Maternal Aunt Diabetes Surgical History H/O colonoscopy History of back surgery History of esophagogastroduodenoscopy (EGD) History of nasal surgery History of transurethral resection of prostate Social History Household Members: Family Household Members Other:: 3 Housing: Apartment Do you presently have visiting nurse or other home services: No (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 is 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) Alcohol intake: never Patient Tobacco Use Status: Former Tobacco user Quit Date: 40 years ago Tobacco use type: Cigarette Cigarette Packs Per Day: 3 Years Smoked: 25 Smoked in Last 30 Days: No e-Cigarette/Vaping Use: Never Used Second Hand Smoke Exposure: No Use of substances other than those prescribed or required for medical reasons: No Advance Directives: Yes Advance Directives on File: Yes Advance Directives Date on File: 03/04/21 service: No Current occupational status: disabled Meds Allergies Allergy/AdvReac Type Severity Reaction Status Date / Time Penicillins Allergy Intermediate Rash Verified 02/27/23 11:36 aspirin [ASA] AdvReac Intermediate GI BLEED, Verified 02/27/23 11:36 Headaches Active Medications: Current Medications Pharmacy Consult (Consult Rx Perform Med Rec) 1 each MISCELLANE ONCE PRN PRN Reason: Consult order Home Medications Medication Instructions Recorded Confirmed Last Taken Type umeclidinium 62.5 mcg-vilanterol 1 inh inhalation DAILY 06/21/20 03/31/23 03/17/22 History 25 mcg/actuation powdr for inhalation (Anoro Ellipta) albuterol sulfate 90 mcg/actuation 2 puff PO Q4H PRN for dyspnea 03/18/22 03/31/23 Unknown History aerosol inhaler acetaminophen 160 mg/5 mL oral 10 ml feeding tube TID PRN pain 11/18/22 03/31/23 Unknown History liquid (M-PAP) duloxetine 30 mg capsule,delayed 1 cap PO DAILY 11/18/22 03/31/23 Unknown History release duloxetine 60 mg capsule,delayed 1 cap PO DAILY 11/18/22 03/31/23 Unknown History release fluticasone propionate 110 2 puff inhalation BID 11/18/22 03/31/23 Unknown History mcg/actuation HFA aerosol inhaler (Flovent HFA) fluticasone propionate 50 2 spray intranasal BID 11/18/22 03/31/23 Unknown History mcg/actuation nasal spray,suspension levocetirizine 5 mg tablet 1 tab PO BEDTIME 11/18/22 03/31/23 Unknown History omeprazole 40 mg capsule,delayed 1 cap PO DAILY 11/18/22 03/31/23 Unknown History release tizanidine 4 mg tablet 1 tab PO BEDTIME 11/18/22 03/31/23 Unknown History triamcinolone acetonide 0.5 % 1 appl topical BID 11/18/22 03/31/23 Unknown History topical cream tramadol 50 mg tablet 50 mg PO TID PRN Pain, Moderate 02/02/23 03/31/23 Unknown History (Pain Scale 4-6 multivitamin 1 tab feeding tube DAILY 03/31/23 03/31/23 Unknown History Physical Exam Vital Signs and Narrative: Vital Signs: Last Vital Signs Temp 98.9 F 03/30/23 23:07 Pulse 87 03/30/23 23:07 Resp 17 03/30/23 23:07 BP 114/54 L 03/30/23 23:07 Pulse Ox 100 03/30/23 23:07 O2 Del Method Room Air 03/30/23 23:07 BMI result Body Mass Index 19.4 Const: Other: Very cachectic and frail General: cooperative and no acute distress Eyes: General: appearance normal, both eyes and all related structures Resp: Effort & Inspection: normal respiratory effort Auscultation: clear to auscultation bilaterally Cardio: Rate: regular rate Rhythm: regular rhythm GI: Other: Abdomen is soft, no rebound or guarding Palpation (GI): Soft to palpation Auscultation: normal bowel sounds Skin: General skin exam: no rashes or lesions noted Neuro: Cognition (Neuro): normal cognition Extrem: General: Yes normal to inspection and Yes no pedal edema Results Labs 03/30/23 21:49 03/30/23 21:48 Labs: Laboratory Results - last 24 hr 03/30/23 03/30/23 03/30/23 21:48 21:49 22:21 MCV 103.2 H MCH 32.3 MCHC 31.3 RDW 16.6 H Plt Count 403 H MPV 9.7 Immature Gran % (Auto) 0.6 H Neut % (Auto) 66.1 Lymph % (Auto) 14.3 L [place] % (Auto) 15.6 H Eos % (Auto) 2.3 Baso % (Auto) 1.1 Lymph # (Auto) 0.7 L [place] # (Auto) 0.7 Eos # (Auto) 0.1 Baso # (Auto) 0.1 Abs Immat Gran (auto) 0.03 Absolute Neuts (auto) 3.1 Absolute Nucleated RBC 0.000 Nucleated RBC % (auto) 0.0 Anion Gap 11 L Estim Creat Clear Calc 87.0 Estimated GFR > 60 Random Glucose 114 Calcium 9.3 D Total Bilirubin 0.1 AST 29 ALT 13 Alkaline Phosphatase 69 Total Protein 6.9 Albumin 3.1 L Stool Occult Blood POSITIVE Blood Type Antibody Screen Crossmatch 03/30/23 22:23 MCV MCH MCHC RDW Plt Count MPV Immature Gran % (Auto) Neut % (Auto) Lymph % (Auto) [place] % (Auto) Eos % (Auto) Baso % (Auto) Lymph # (Auto) [place] # (Auto) Eos # (Auto) Baso # (Auto) Abs Immat Gran (auto) Absolute Neuts (auto) Absolute Nucleated RBC Nucleated RBC % (auto) Anion Gap Estim Creat Clear Calc Estimated GFR Random Glucose Calcium Total Bilirubin AST ALT Alkaline Phosphatase Total Protein Albumin Stool Occult Blood Blood Type O Positive Antibody Screen NEGATIVE Crossmatch See Detail Assessment and Plan (1) Acute GI bleeding: Status: Acute (2) Acute on chronic anemia: Status: Acute (3) Anemia due to GI blood loss: Status: Acute Plan this is a 72-year-old male with past medical history as mentioned above comes into the hospital with bright red blood per rectum found to have acute anemia # acute on chronic anemia secondary to GI bleed - likely in the setting of naproxen use - patient being transfuse 2 unit of PRBC - will keep NPO - PPI IV b.i.d. - gastroenterology consulted # acute GI bleed - has history of GI bleed and GERD - secondary to naproxen use likely upper - will hold NSAIDs, - being transfuse 2 units of PRBC - abdominal CT angiogram scan with bleed study negative - gastroenterology consulted # hypertension - stable - hold antihypertensives in the setting of acute GI bleed # hypothyroidism - continue levothyroxine # chronic pain - continue home analgesics DVT prophylaxis: SCDs Given patient's need for further evaluation of acute GI bleed patient require minimum 2 nights inpatient hospital stay for further management and monitoring Time Spent With Patient Time: Total time managing care of this patient today ____ minutes. Quality Stroke Does the patient have a stroke diagnosis?: No VTE Prior VTE?: No VTE Risk Level:: Medical - moderate - high VTE Device Contraindication: N/A - Device Ordered VTE Drug Contraindication: Treatment Not Indicated
[2023-03-31] MEDS: Acetaminophen 325 MG TABLET 650 MG PO (00:59)
[2023-03-31] MEDS: Lactated Ringers 1,000 ML 100 ML IVCONT ×2 (02:55→11:34)
[2023-03-31] MEDS: Morphine Sulfate 4 MG/ML CARTRIDGE IVPUSH (06:37)
[2023-03-31] MEDS: Pantoprazole Sodium 40 MG/10 ML VIAL IVPUSH ×2 (06:37→18:18)
--- NOTE | 2023-03-31 07:22 | PC.NURSE ---
pt a&ox3, vss, pt stating that pot morphine administration his pain level went down to a 6/10. LR still running. Pt lying comfortably with call pace within reach.
[2023-03-31 07:29] LABS: MANUAL DIFF FLAG NO
[2023-03-31 07:31] LABS: Basophils Absolute Auto 0.1 X10*3/uL (0.0-0.2); Basophils Percent Auto 1.1 % (0-2); Eosinophils Absolute Auto 0.2 X10*3/uL (0.0-0.4); Eosinophils Percent Auto 2.3 % (0-4); Hematocrit 24.8 % (42.0-52.0); Hemoglobin 8.2 g/dl (14.0-18.0); Imm Gran Abs Auto 0.09 X10*3/uL (0.00-0.03); Imm Gran Pct Auto 1.3 % (0.0-0.4); Lymphocytes Percent Auto 14.3 % (20-40); Mean Corpuscular HGB Conc 33.1 g/dl (31.0-36.0); Mean Corpuscular Hemoglobin 31.7 pg (27.0-33.0); Mean Corpuscular Volume 95.8 fL (80.0-98.0); Mean Platelet Volume 9.3 fL (9.4-12.4); Monocytes Absolute Auto 0.9 X10*3/uL (0.1-1.2); Monocytes Percent Auto 12.5 % (2-11); Neutrophils Absolute Auto 4.8 x10*3/uL (2.0-8.3); Neutrophils Percent Auto 68.5 % (45-73); Platelet Count 314 X10*3/uL (160-400); Red Blood Count 2.59 X10*6/uL (4.60-5.80); Red Cell Distribution Width 17.7 % (11.0-16.0)
[2023-03-31 07:42] LABS: Anion Gap 8 (12-20); Blood Urea Nitrogen 22 mg/dL (9-16); Calcium 8.9 mg/dL (8.4-10.2); Carbon Dioxide 29 mmol/L (22-29); Chloride 108 mmol/L (96-108); Creatinine Clr Calc Pharmacy 89.9; Estimated Glomerular Filt Rate > 60; Glucose Random 98 mg/dL (60-115); Potassium 4.1 mmol/L (3.3-5.1); Sodium 141 mmol/L (135-145)
--- NOTE | 2023-03-31 08:03 | PHA.MEDREC ---
Pharmacy Consult ? Medication Reconciliation Pharmacy has completed the medication reconciliation. Spoke to the patient to confirm meds.
--- NOTE | 2023-03-31 09:57 | PC.NURSE ---
pt a&ox3, vss, pt verbalizing pain level increased to a 9/10. 400ml of dark yellow urine documented from urinal. LR still running. Pt resting comfortably with the lights dimmed and watching television.
--- NOTE | 2023-03-31 10:17 | PC.NURSE ---
pt states he is unable to swallow pills and he breaks open the meds, dr. barnett was tiger texted as a majority of the patients meds are to be given whole. for the time being the meds will not be given until further instructions from hospitalist.
--- NOTE | 2023-03-31 10:50 | PC.NURSE ---
spoke with hospitalist Dr. Amato about the patients meds that are graduals which need to be administered through gtube- provider stated to continue to give meds through gtube and crush the ones we were able to crush.
[2023-03-31] MEDS: Levothyroxine Sodium 75 MCG TABLET G-TUBE (10:59)
[2023-03-31] MEDS: Gabapentin 400 MG CAPSULE G-TUBE (10:59)
[2023-03-31] MEDS: DULoxetine HCl 30 MG CAPSULE.DR PO (10:59)
[2023-03-31] MEDS: DULoxetine HCl 60 MG CAPSULE.DR PO (11:00)
[2023-03-31] MEDS: Omeprazole 40 MG CAPSULE.DR PO (11:00)
--- NOTE | 2023-03-31 11:01 | PC.NURSE ---
medication administered per provider order. pt verbalizing increase in pain level at a 9/10 - requesting medication for the pain.
--- NOTE | 2023-03-31 11:34 | PC.NURSE ---
second bag of LR infusing.
--- NOTE | 2023-03-31 11:38 | PC.NURSE ---
this nurse called pharmacy for missing nasal spray for patient, additionally this nurse spoke with pharmacy about alternative options for the gradual medications that go through the gtube and they will reach out to the hospitalist regarding these medications
--- NOTE | 2023-03-31 11:39 | PC.NURSE ---
gtube dressing changed with 2 drain sponge dressings and tape. pt requested that the tape only be applied to the top and side of the dressing. pt gtube was flushed and medications administered per order
--- NOTE | 2023-03-31 12:23 | PC.NURSE ---
proper care items updated and documented in pt's chart prior to being transferred to medr unit. pt lying comfortably with the lights dimmed.
--- NOTE | 2023-03-31 12:49 | P.CNGI_ITS ---
History of Present Illness Data of Consult Service Date: 03/31/23 Requesting physician: Jeronimo Rawls Primary Care Provider: Tracy Oneill MD [facility] Reason for consult: Anemia This is a 72-year-old gentleman with past medical history of COPD, history of throat cancer status post chemoradiation with resultant esophageal stricture and G tube dependenc, aortic aneurysm, chronic anemia, who has had multiple visits to the hospital in the last 6 months for acute on chronic anemia secondary to epistaxis as well as intestinal AVMs, who is here for melena x 1 day. Patient was evaluated at bedside, reports that last week, he started taking naproxen 3 to 4 times a day for left-sided jaw pain. Three days after he started taking it, he noticed his stool had turned black, with a red rim around it in toilet bowl and therefore came to the ER. This is not associated with any abdominal pain, nausea, vomiting. Takes his food through the G-tube. Does not report any new nose bleeds. On arrival to the emergency room, he was noted to be hemodynamically stable with mild tachycardia that improved with resuscitation. Labs were significant for a drop in hemoglobin from 9.0-6 0 in 3 days. Of note, his MCV is noted to be wide. He is status post 2 units of blood transfusion with an appropriate increase in hemoglobin to 8.2. Chem 7 with elevated BUN to creatinine ratio but otherwise normal. He also underwent a CT abdomen and pelvis for bleed protocol that did not show any active extravasation at that time. Of note, a PET scan from February showed activity in pulmonary nodules, and a f ollow-up CT chest was recommended. Currently, he is NPO. Reports no further bowel movements since yesterday. Recent endoscopy: 12/08/2022-EGD (Dr. Kim): Balloon dilation of esophageal stricture to 11.5 mm but unable to traverse gastroscope through it. 11/24/2022-EGD/colonoscopy (Dr. Kim): Esophageal stricture dilation to 11 mm with passage of gastroscope. Duodenal AVM status post APC. Good prep in colo. Cecal and ascending colon AVM status post APC. Review of Systems Review of Systems: Yes all other systems are reviewed and are negative PMFSH Past Medical History Medical History Anemia Aortic aneurysm Arthritis Back pain Cancer COPD (chronic obstructive pulmonary disease) COVID-19 Depression Difficulty swallowing Elevated cholesterol Esophageal stricture GERD (gastroesophageal reflux disease) History of chemotherapy History of epistaxis HTN (hypertension) Hx of radiation therapy Lumbar radiculitis Normocytic anemia Osteoarthritis of left shoulder Pain around PEG tube site Post laminectomy syndrome Pulmonary nodule Thyroid disease Uses feeding tube Family History Family History Father Brain cancer Mother CVD (cardiovascular disease) Maternal Aunt Diabetes Surgical History Surgical History H/O colonoscopy History of back surgery History of esophagogastroduodenoscopy (EGD) History of nasal surgery History of transurethral resection of prostate Social History Social History Household Members: Family Household Members Other:: 3 Housing: Apartment Do you presently have visiting nurse or other home services: No (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) Alcohol intake: never Patient Tobacco Use Status: Former Tobacco user Quit Date: 40 years ago Tobacco use type: Cigarette Cigarette Packs Per Day: 3 Years Smoked: 25 Smoked in Last 30 Days: No e-Cigarette/Vaping Use: Never Used Second Hand Smoke Exposure: No Use of substances other than those prescribed or required for medical reasons: No Advance Directives: Yes Advance Directives on File: Yes Advance Directives Date on File: 03/04/21 service: No Current occupational status: disabled Meds Allergies Allergy/AdvReac Type Severity Reaction Status Date / Time Penicillins Allergy Intermediate Rash Verified 02/27/23 11:36 aspirin [ASA] AdvReac Intermediate GI BLEED, Verified 02/27/23 11:36 Headaches Active Medications: Current Medications Acetaminophen (Acetaminophen 325 Mg Tablet) 650 mg PO Q6H PRN PRN Reason: Pain, Mild (Pain Scale 1-3) Last Admin: 03/31/23 00:59 Dose: 650 mg Acetaminophen (Acetaminophen Supp 650 Mg Supp.Rect) 650 mg HI Q6H PRN PRN Reason: Pain, Mild (Pain Scale 1-3) Duloxetine HCl (Duloxetine Hcl 30 Mg Capsule.Dr) 30 mg PO DAILY [facility] Last Admin: 03/31/23 10:59 Dose: 30 mg Duloxetine HCl (Duloxetine Hcl 60 Mg Capsule.) 60 mg PO DAILY [facility] Last Admin: 03/31/23 11:00 Dose: 60 mg Fluticasone Propionate (Fluticasone Propionate 100 Mcg Blst.W.Dev) 2 puff INHALE RBID PRN PRN Reason: Shortness Of Breath Or Wheezing Fluticasone Propionate (Fluticasone Propionate Nasal 16 Gm [place]) 2 spray NOSTRIL-B BID [facility] Last Admin: 03/31/23 11:23 Dose: Not Given Gabapentin (Gabapentin 400 Mg Capsule) 400 mg G-TUBE TID [facility] Last Admin: 03/31/23 12:18 Dose: Not Given Lactated Ringer's (Lr) 1,000 mls @ 100 mls/hr IVCONT .Q10H [facility] Last Admin: 03/31/23 11:34 Dose: 100 mls/hr Levothyroxine Sodium (Levothyroxine Sodium 75 Mcg Tablet) 75 mcg G-TUBE DAILY @0600 [facility] Last Admin: 03/31/23 10:59 Dose: 75 mcg Loratadine (Loratadine 10 Mg Tablet) 10 mg PO BEDTIME [facility] Non-Formulary Medication (Umeclidinium-Vilanterol [Anoro Ellipta]) 1 inhalation INHALE DAILY [facility] Last Admin: 03/31/23 11:23 Dose: Not Given Omeprazole (Omeprazole 40 Mg Capsule.) 40 mg PO DAILY@0630 [facility] Last Admin: 03/31/23 11:00 Dose: 40 mg Pantoprazole Sodium (Pantoprazole Sodium 40 Mg/10 Ml Vial) 40 mg IVPUSH BID@0630,1630 [facility] Last Admin: 03/31/23 06:37 Dose: 40 mg Pharmacy Consult (Consult Rx Perform Med Rec) 1 each MISCELLANE ONCE PRN PRN Reason: Consult order Sodium Chloride (0.9 % Sodium Chloride Flush 3 Ml Syringe) 3 ml IVFLUSH QSHIFT [facility] Last Admin: 03/31/23 12:16 Dose: Not Given Tizanidine HCl (Tizanidine Hcl 4 Mg Tablet) 4 mg PO BEDTIME [facility] Tramadol HCl (Tramadol Hcl 50 Mg Tablet) 50 mg PO TID PRN PRN Reason: Pain, Moderate (Pain Scale 4-6 Triamcinolone Acetonide (Triamcinolone Acet 0.5 % Cream 15 Gm Tube) 1 appl TOPICAL BID PRN; Protocol PRN Reason: Rash Home Medications Medication Instructions Recorded Confirmed Last Taken Type umeclidinium 62.5 mcg-vilanterol 1 inh inhalation DAILY 06/21/20 03/31/23 03/30/23 History 25 mcg/actuation powdr for inhalation (Anoro Ellipta) acetaminophen 160 mg/5 mL oral 10 ml feeding tube TID PRN pain 11/18/22 03/31/23 03/30/23 History liquid (M-PAP) duloxetine 30 mg capsule,delayed 1 cap PO DAILY 11/18/22 03/31/23 03/30/23 History release duloxetine 60 mg capsule,delayed 1 cap PO DAILY 11/18/22 03/31/23 03/30/23 History release fluticasone propionate 110 2 puff inhalation BID PRN 11/18/22 03/31/23 03/30/23 History mcg/actuation HFA aerosol inhaler Shortness Of Breath Or Wheezing (Flovent HFA) fluticasone propionate 50 2 spray intranasal BID 11/18/22 03/31/23 03/30/23 History mcg/actuation nasal spray,suspension levocetirizine 5 mg tablet 1 tab PO BEDTIME 11/18/22 03/31/23 03/29/23 History omeprazole 40 mg capsule,delayed 1 cap PO DAILY@0630 11/18/22 03/31/23 03/30/23 History release tizanidine 4 mg tablet 1 tab PO BEDTIME 11/18/22 03/31/23 03/29/23 History triamcinolone acetonide 0.5 % 1 appl topical BID PRN Rash 11/18/22 03/31/23 Unknown History topical cream tramadol 50 mg tablet 50 mg PO TID PRN Pain, Moderate 02/02/23 03/31/23 03/30/23 History (Pain Scale 4-6 cefpodoxime 200 mg tablet 400 mg feeding tube BID 03/31/23 03/31/23 03/30/23 History multivitamin 1 tab feeding tube DAILY 03/31/23 03/31/23 03/30/23 History Physical Exam Vital Signs: Vital Signs: Last Vital Signs Temp 98.9 F 03/31/23 05:48 Pulse 89 03/31/23 09:54 Resp 18 03/31/23 09:54 BP 120/78 03/31/23 09:54 Pulse Ox 97 03/31/23 09:54 O2 Del Method Room Air 03/31/23 09:54 BMI result Body Mass Index 20.6 Gen appear: Pale chronically ill appearing HEENT: no icterus, no cervical lymphadenopathy Chest: No overt resp distress CVS: S1/S2, regular Abd: soft, nontender, nondistended Psych: Stable affect, answering questions appropriately Neuro: A/Ox3 noted to move all extremities spontaneously Ext: no peripheral edema Results Labs 03/31/23 07:18 03/31/23 07:18 Labs: Short CBC 03/30/23 03/31/23 Range/Units 21:49 07:18 WBC 4.7 L 7.0 (4.8-10.8) X10*3/uL Hgb 6.0 L* D 8.2 L D (14.0-18.0) g/dl Hct 19.2 L* D 24.8 L D (42.0-52.0) % Plt Count 403 H 314 (160-400) X10*3/uL BMP 03/30/23 03/31/23 21:48 07:18 Sodium 139 141 Potassium 4.0 4.1 Chloride 104 108 Carbon Dioxide 28 29 BUN 17 H 22 H Creatinine 0.61 0.59 Calcium 9.3 D 8.9 Liver Function 03/30/23 Range/Units 21:48 Total Bilirubin 0.1 (0.0-1.0) mg/dL AST 29 (5-37) U/L ALT 13 (0-40) U/L Alkaline Phosphatase 69 (39-117) U/L Albumin 3.1 L (3.5-5.0) g/dL Assessment and Plan (1) Acute on chronic anemia: Status: Acute (2) Anemia due to GI blood loss: Status: Acute Plan Clinical assessment most consistent with upper GI bleeding in the setting of recent NSAID use. Differentials include bleeding from PUD versus known small intestine AVMs. recommendations: -Ensure at least 2 peripheral IV access at all times -monitor CBC daily -continue IV Protonix b.i.d. -please keep NPO for EGD later today -further recommendations to follow in the procedure note Thank you for allowing me to participate in his care. Please do not hesitate to reach out for any questions or concerns. Time Spent With Patient Time: Total time managing care of this patient today ____ minutes. Procedures Date of Service Date of Service: 03/31/23
[2023-03-31] MEDS: Morphine Sulfate 2 MG/ML CARTRIDGE IVPUSH ×2 (13:45→19:45)
--- NOTE | 2023-03-31 13:48 | PC.NURSE ---
medication administered per provider order.
--- NOTE | 2023-03-31 13:51 | P.CONAN_ITS ---
HPI - Anesthesia Eval Consult details Narrative: GI bleed EDG PMFSH Active Problems Active Problems: All Active Problems (Updated 03/31/23 @ 06:24 by Jeronimo Rawls MD) Anemia due to GI blood loss (Acute) Acute on chronic anemia (Acute) Acute GI bleeding (Acute) ABLA (acute blood loss anemia) (Acute) GI bleed (Acute) LUISA (acute kidney injury) (Acute) Anemia, chronic disease (Acute) Sepsis (Acute) Acute hypoxemic respiratory failure (Acute) Pneumonia (Acute) Mass in neck (Acute) Primary osteoarthritis of left knee (Acute) Pulmonary fibrosis (Acute) Pulmonary nodules (Acute) Syncope due to orthostatic hypotension (Acute) History of external beam radiation therapy (Acute) Atherosclerotic cardiovascular disease (Acute) Ascending aortic aneurysm (Acute) Osteoarthritis (Acute) Fibromyalgia (Acute) Cluneal neuropathy (Acute) Lumbar spondylosis (Acute) Dysphagia (Acute) S/P gastrostomy tube (G tube) placement, follow-up exam (Acute) Pulmonary aspiration (Acute) Emphysema lung (Acute) Normochromic normocytic anemia (Acute) Post laminectomy syndrome (Acute) Osteoarthritis of left shoulder (Acute) Past Medical History Medical History Anemia Aortic aneurysm Arthritis Back pain Cancer COPD (chronic obstructive pulmonary disease) COVID-19 Depression Difficulty swallowing Elevated cholesterol Esophageal stricture GERD (gastroesophageal reflux disease) History of chemotherapy History of epistaxis HTN (hypertension) Hx of radiation therapy Lumbar radiculitis Normocytic anemia Osteoarthritis of left shoulder Pain around PEG tube site Post laminectomy syndrome Pulmonary nodule Thyroid disease Uses feeding tube Family History Family History Father Brain cancer Mother CVD (cardiovascular disease) Maternal Aunt Diabetes Family history of problems with anesthesia: No Surgical History Surgical History H/O colonoscopy History of back surgery History of esophagogastroduodenoscopy (EGD) History of nasal surgery History of transurethral resection of prostate History of Problems with Anesthesia: No Social History Social History Household Members: Family Household Members Other:: 3 Housing: Apartment Do you presently have visiting nurse or other home services: No (Daughter is pt's WHEEL TUNER) Alcohol intake: never Patient Tobacco Use Status: Former Tobacco user Quit Date: 40 years ago Tobacco use type: Cigarette Cigarette Packs Per Day: 3 Years Smoked: 25 Smoked in Last 30 Days: No e-Cigarette/Vaping Use: Never Used Second Hand Smoke Exposure: No Use of substances other than those prescribed or required for medical reasons: No Advance Directives: Yes Advance Directives on File: Yes Advance Directives Date on File: 03/04/21 service: No Current occupational status: disabled Meds Allergies Allergy/AdvReac Type Severity Reaction Status Date / Time Penicillins Allergy Intermediate Rash Verified 02/27/23 11:36 aspirin [ASA] AdvReac Intermediate GI BLEED, Verified 02/27/23 11:36 Headaches Active Medications: Current Medications Acetaminophen (Acetaminophen 325 Mg Tablet) 650 mg PO Q6H PRN PRN Reason: Pain, Mild (Pain Scale 1-3) Last Admin: 03/31/23 00:59 Dose: 650 mg Acetaminophen (Acetaminophen Supp 650 Mg Supp.Rect) 650 mg AR Q6H PRN PRN Reason: Pain, Mild (Pain Scale 1-3) Duloxetine HCl (Duloxetine Hcl 30 Mg Capsule.Dr) 30 mg PO DAILY [facility] Last Admin: 03/31/23 10:59 Dose: 30 mg Duloxetine HCl (Duloxetine Hcl 60 Mg Capsule.Dr) 60 mg PO DAILY [facility] Last Admin: 03/31/23 11:00 Dose: 60 mg Fluticasone Propionate (Fluticasone Propionate 100 Mcg Blst.W.Dev) 2 puff INHALE RBID PRN PRN Reason: Shortness Of Breath Or Wheezing Fluticasone Propionate (Fluticasone Propionate Nasal 16 Gm [place]) 2 spray NOSTRIL-B BID [facility] Last Admin: 03/31/23 11:23 Dose: Not Given Gabapentin (Gabapentin 400 Mg Capsule) 400 mg G-TUBE TID [facility] Last Admin: 03/31/23 12:18 Dose: Not Given Lactated Ringer's (Lr) 1,000 mls @ 100 mls/hr IVCONT .Q10H [facility] Last Admin: 03/31/23 11:34 Dose: 100 mls/hr Levothyroxine Sodium (Levothyroxine Sodium 75 Mcg Tablet) 75 mcg G-TUBE DAILY@0600 [facility] Last Admin: 07/25/23 10:59 Dose: 75 mcg Loratadine (Loratadine 10 Mg Tablet) 10 mg PO BEDTIME [facility] Morphine Sulfate (Morphine Sulfate 2 Mg/Ml Cartridge) 2 mg IVPUSH Q4H PRN; Protocol PRN Reason: Pain, Severe (Pain Scale 7-10) Last Admin: 03/31/23 13:45 Dose: 2 mg Non-Formulary Medication (Umeclidinium-Vilanterol [Anoro Ellipta]) 1 inhalation INHALE DAILY [facility] Last Admin: 03/31/23 11:23 Dose: Not Given Omeprazole (Omeprazole 40 Mg Capsule.Dr) 40 mg PO DAILY@0630 [facility] Last Admin: 03/31/23 11:00 Dose: 40 mg Pantoprazole Sodium (Pantoprazole Sodium 40 Mg/10 Ml Vial) 40 mg IVPUSH BID@0630,1630 [facility] Last Admin: 03/31/23 06:37 Dose: 40 mg Pharmacy Consult (Consult Rx Perform Med Rec) 1 each MISCELLANE ONCE PRN PRN Reason: Consult order Sodium Chloride (0.9 % Sodium Chloride Flush 3 Ml Syringe) 3 ml IVFLUSH QSHIFT [facility] Last Admin: 03/31/23 12:16 Dose: Not Given Tizanidine HCl (Tizanidine Hcl 4 Mg Tablet) 4 mg PO BEDTIME [facility] Tramadol HCl (Tramadol Hcl 50 Mg Tablet) 50 mg PO TID PRN PRN Reason: Pain, Moderate (Pain Scale 4-6 Triamcinolone Acetonide (Triamcinolone Acet 0.5 % Cream 15 Gm Tube) 1 appl TOPICAL BID PRN; Protocol PRN Reason: Rash Home Medications Medication Instructions Recorded Confirmed Last Taken Type umeclidinium 62.5 mcg-vilanterol 1 inh inhalation DAILY 06/21/20 03/31/23 03/30/23 History 25 mcg/actuation powdr for inhalation (Anoro Ellipta) acetaminophen 160 mg/5 mL oral 10 ml feeding tube TID PRN pain 11/18/22 03/31/23 03/30/23 History liquid (M-PAP) duloxetine 30 mg capsule,delayed 1 cap PO DAILY 11/18/22 03/31/23 03/30/23 History release duloxetine 60 mg capsule,delayed 1 cap PO DAILY 11/18/22 03/31/23 03/30/23 History release fluticasone propionate 110 2 puff inhalation BID PRN 11/18/22 03/31/23 03/30/23 History mcg/actuation HFA aerosol inhaler Shortness Of Breath Or Wheezing (Flovent HFA) fluticasone propionate 50 2 spray intranasal BID 11/18/22 03/31/23 03/30/23 History mcg/actuation nasal spray,suspension levocetirizine 5 mg tablet 1 tab PO BEDTIME 11/18/22 03/31/23 03/29/23 History omeprazole 40 mg capsule,delayed 1 cap PO DAILY@0630 11/18/22 03/31/23 03/30/23 History release tizanidine 4 mg tablet 1 tab PO BEDTIME 11/18/22 03/31/23 03/29/23 History triamcinolone acetonide 0.5 % 1 appl topical BID PRN Rash 11/18/22 03/31/23 Unknown History topical cream tramadol 50 mg tablet 50 mg PO TID PRN Pain, Moderate 02/02/23 03/31/23 03/30/23 History (Pain Scale 4-6 cefpodoxime 200 mg tablet 400 mg feeding tube BID 03/31/23 03/31/23 03/30/23 History multivitamin 1 tab feeding tube DAILY 03/31/23 03/31/23 03/30/23 History Exam Exam Date and Time: March 31, 2023 135 Height,Weight and Vital Signs: Height 5 ft 7 in Weight 59.7 kg Last Vital Signs Temp 98.9 F 03/31/23 05:48 Pulse 89 03/31/23 09:54 Resp 18 03/31/23 09:54 BP 120/78 03/31/23 09:54 Pulse Ox 97 03/31/23 09:54 O2 Del Method Room Air 03/31/23 09:54 Pertinent Lab Results Pertinent Lab Results: Laboratory Tests 03/30/23 03/30/23 03/30/23 21:48 21:49 21:50 WBC 4.7 L RBC 1.86 L D Hgb 6.0 L* D Hct 19.2 L* D MCV 103.2 H MCH 32.3 MCHC 31.3 RDW 16.6 H Plt Count 403 H MPV 9.7 Immature Gran % (Auto) 0.6 H Neut % (Auto) 66.1 Lymph % (Auto) 14.3 L Fleming % (Auto) 15.6 H Eos % (Auto) 2.3 Baso % (Auto) 1.1 Lymph # (Auto) 0.7 L Fleming # (Auto) 0.7 Eos # (Auto) 0.1 Baso # (Auto) 0.1 Abs Immat Gran (auto) 0.03 Absolute Neuts (auto) 3.1 Absolute Nucleated RBC 0.000 Nucleated RBC % (auto) 0.0 Sodium 139 Potassium 4.0 Chloride 104 Carbon Dioxide 28 Anion Gap 11 L BUN 17 H Creatinine 0.61 Estim Creat Clear Calc 87.0 Estimated GFR > 60 Random Glucose 114 Calcium 9.3 D Total Bilirubin 0.1 AST 29 ALT 13 Alkaline Phosphatase 69 Troponin I High Sens < 2.7 Total Protein 6.9 Albumin 3.1 L Stool Occult Blood Blood Type Antibody Screen Crossmatch 03/30/23 03/30/23 03/31/23 22:21 22:23 07:18 WBC 7.0 RBC 2.59 L D Hgb 8.2 L D Hct 24.8 L D MCV 95.8 D MCH 31.7 MCHC 33.1 RDW 17.7 H Plt Count 314 MPV 9.3 L Immature Gran % (Auto) 1.3 H Neut % (Auto) 68.5 Lymph % (Auto) 14.3 L Fleming % (Auto) 12.5 H Eos % (Auto) 2.3 Baso % (Auto) 1.1 Lymph # (Auto) 1.0 L Fleming # (Auto) 0.9 Eos # (Auto) 0.2 Baso # (Auto) 0.1 Abs Immat Gran (auto) 0.09 H Absolute Neuts (auto) 4.8 Absolute Nucleated RBC 0.000 Nucleated RBC % (auto) 0.0 Sodium Potassium Chloride Carbon Dioxide Anion Gap BUN Creatinine Estim Creat Clear Calc Estimated GFR Random Glucose Calcium Total Bilirubin AST ALT Alkaline Phosphatase Troponin I High Sens Total Protein Albumin Stool Occult Blood POSITIVE Blood Type O Positive Antibody Screen NEGATIVE Crossmatch See Detail 03/31/23 07:18 WBC RBC Hgb Hct MCV MCH MCHC RDW Plt Count MPV Immature Gran % (Auto) Neut % (Auto) Lymph % (Auto) Fleming % (Auto) Eos % (Auto) Baso % (Auto) Lymph # (Auto) Fleming # (Auto) Eos # (Auto) Baso # (Auto) Abs Immat Gran (auto) Absolute Neuts (auto) Absolute Nucleated RBC Nucleated RBC % (auto) Sodium 141 Potassium 4.1 Chloride 108 Carbon Dioxide 29 Anion Gap 8 L BUN 22 H Creatinine 0.59 Estim Creat Clear Calc 89.9 Estimated GFR > 60 Random Glucose 98 Calcium 8.9 Total Bilirubin AST ALT Alkaline Phosphatase Troponin I High Sens Total Protein Albumin Stool Occult Blood Blood Type Antibody Screen Crossmatch Airway Mallampati Class: IV TM Dist: <=3cm Neck ROM: Limited Heart: rrr Lungs: cta Other: Limited mouth opening Assessment and Plan Final Anesthetic Review Family History of Problems with Anesthesia: No History of Problems with Anesthesia: No NPO: Yes ASA Class: IV and Emergency Final Preanesthetic Review: No Changes in Pt Med Stat, Meds/Allgs Chart Reviewed, Consent Obtained/Reviewed and Anes Risks/Benef Reviewed Patient Risk: High Procedure Risk: Intermediate Anesthetic Plan Anesthetic Plan: MAC: and Agree w/ Assess. and Plan Disposition: Standard PACU
--- NOTE | 2023-03-31 15:32 | P.OP_ITS ---
Operative Note Operative Note Date of Service: 03/31/23 Narrative: Procedure: Esophagogastroduodenoscopy Endoscopist: Taty Maria MD Indication: GI bleed Anesthesia Provider: Saul Scales MD Anesthesia Type: MAC Instrument: [id number] EGD Procedure:?? The procedure, indications, preparation and potential complications were reviewed with the patient, who indicated understanding and gave written informed consent to proceed. A physical exam was performed. The endoscope was introduced through the mouth but could not be advanced through the esophageal stricture. G tube balloon was delated and the tube was then removed. The XP scope was passed through the matured tract and advanced to the second part of duodenum. The mucosa was carefully examined on slow withdrawal of the endoscope. The patient tolerated the procedure well. There were no immediate complications.? ? EGD Findings:? * Esophagus:?High grade short fibrotic stricture at 22 cm. The XP scope was introduced through the gastric stoma and a Savary wire was introduced through the scope. The wire was advanced direct visualization retrograde from the esophagus to the mouth. A Savary Guillard bougie was then advanced over the wire and the esophagus was dilated to 9 mm. The XP was then passed through the stricture. Significant tear and bleeding was noted and therefore further dilation was not performed. * Stomach:? Normal mucosa was noted in the stomach. Large hiatal hernia was noted on retroflexion. * Duodenum:? A small actively bleeding AVM was noted in the second portion of the duodenum. Unfortunately this could not be ablated or clipped as the small 2.2 mm channel of the XP scope does not allow those instruments. At the end of the procedure, a new G tube was replaced and secured at 4 cm from the skin. EGD Impressions:? 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 * Trial of S/C octreotide for AVM bleeding * Consider scheduled iron infusions to reduce transfusion dependence * Avoid NSAIDs * If cont to bleed can consider G stoma dilation to allow passage of gastroscope and treatment of AVMs * Would also benefit from discussion re palliative management with IV iron and PRBC transfusion vs serial dilations of the esophagus to ultimately allow endoscopic management of small bowel AVMs.
--- NOTE | 2023-03-31 15:48 | PC.NURSE ---
To short stay [id number]
--- NOTE | 2023-03-31 16:24 | PM.EVENT ---
Event Note Date of Service: 03/31/23 Event Note: Seen and evaluated no reported vomiting or pain Plan for EGD this afternoon continue PPI start home meds Time Spent With Patient Time: Total time managing care of this patient today ____ minutes.
[2023-03-31] MEDS: Phenylephrine HCL 10 MG/ML VIAL IVPUSH (16:41)
--- NOTE | 2023-03-31 17:52 | PM.CCN ---
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 Patient underwent EGD with visualization of the avium formation with some bleeding. Postprocedure patient hypotensive requiring pressor support and transfer to intensive care unit. Critical Care Time (minutes): 0
[2023-03-31] MEDS: Phenylephrine HCL 20 MG in 0.9 % Sodium Chloride 250 ML 45.13 MG IVCONT (18:18)
[2023-03-31 18:21] LABS: MANUAL DIFF FLAG NO
[2023-03-31] MEDS: Octreotide Acetate 500 MCG in 0.9 % Sodium Chloride 500 ML 50.1 MCG IVCONT (18:25)
[2023-03-31 18:26] LABS: Basophils Absolute Auto 0.1 X10*3/uL (0.0-0.2); Basophils Percent Auto 0.8 % (0-2); Eosinophils Absolute Auto 0.2 X10*3/uL (0.0-0.4); Eosinophils Percent Auto 1.3 % (0-4); Hematocrit 22.3 % (42.0-52.0); Hemoglobin 7.3 g/dl (14.0-18.0); Imm Gran Abs Auto 0.31 X10*3/uL (0.00-0.03); Imm Gran Pct Auto 2.6 % (0.0-0.4); Lymphocytes Absolute Auto 0.9 X10*3/uL (1.2-4.9); Lymphocytes Percent Auto 7.3 % (20-40); Mean Corpuscular HGB Conc 32.7 g/dl (31.0-36.0); Mean Corpuscular Hemoglobin 31.7 pg (27.0-33.0); Mean Platelet Volume 9.7 fL (9.4-12.4); Monocytes Absolute Auto 1.2 X10*3/uL (0.1-1.2); Monocytes Percent Auto 9.6 % (2-11); Neutrophils Absolute Auto 9.4 x10*3/uL (2.0-8.3); Neutrophils Percent Auto 78.4 % (45-73); Platelet Count 325 X10*3/uL (160-400); Red Cell Distribution Width 18.6 % (11.0-16.0)
[2023-03-31 18:38] LABS: Anion Gap 9 (12-20); Blood Urea Nitrogen 17 mg/dL (9-16); Calcium 8.6 mg/dL (8.4-10.2); Carbon Dioxide 26 mmol/L (22-29); Chloride 107 mmol/L (96-108); Creatinine Clr Calc Pharmacy 111.6; Estimated Glomerular Filt Rate > 60; Glucose Random 94 mg/dL (60-115); Sodium 138 mmol/L (135-145)
[2023-03-31 19:00] LABS: VBG Base Excess 8.1 mmol/L; VBG HCO3 33 mmol/L (22-26); VBG pCO2 53 mmHg; VBG pO2 74 mmHg
[2023-03-31 19:01] LABS: Venous Blood Gas Refer to POC result
--- NOTE | 2023-03-31 19:25 | PC.NURSE ---
Pt arrive to the unit at approximately 1720 from PACU. Pt came on IV Ren gtt at 1mcg/kg/min, unable to titrate at the time as medication administration was not charted, per BEREKET Ch's report, pt was started on med at 1648; pharmacy called and recommended new set to be started; new bag of IV Ren gtt resumed at 1mcg/kg/min. Pt settled in bed and report given to oncoming RN who will continue with POC.
[2023-03-31] MEDS: Loratadine 10 MG TABLET PO (22:09)
[2023-04-01] VITALS (25 sets, daily range): BP systolic 136–176; BP diastolic 61–84; PULSE 92–109; RESP 11–20; TEMP 36–37.4; O2SAT 94–99; BMI 21.1
[2023-04-01] MEDS: Morphine Sulfate 2 MG/ML CARTRIDGE IVPUSH ×5 (00:06→23:55)
[2023-04-01] MEDS: Acetaminophen 325 MG TABLET 650 MG PO ×3 (00:08→15:26)
[2023-04-01 04:32] LABS: VBG Base Excess 3.8 mmol/L; VBG HCO3 26 mmol/L (22-26); VBG pCO2 31 mmHg; VBG pH 7.52 (7.32-7.43); VBG pO2 76 mmHg
[2023-04-01] MEDS: Octreotide Acetate 500 MCG in 0.9 % Sodium Chloride 500 ML 50.1 MCG IVCONT ×2 (04:32→15:27)
[2023-04-01 04:50] LABS: MANUAL DIFF FLAG NO
[2023-04-01 04:53] LABS: Basophils Absolute Auto 0.1 X10*3/uL (0.0-0.2); Basophils Percent Auto 0.8 % (0-2); Eosinophils Absolute Auto 0.2 X10*3/uL (0.0-0.4); Eosinophils Percent Auto 1.2 % (0-4); Hematocrit 29.7 % (42.0-52.0); Hemoglobin 10.1 g/dl (14.0-18.0); Imm Gran Abs Auto 0.11 X10*3/uL (0.00-0.03); Imm Gran Pct Auto 0.8 % (0.0-0.4); Lymphocytes Absolute Auto 0.6 X10*3/uL (1.2-4.9); Lymphocytes Percent Auto 4.6 % (20-40); Mean Corpuscular Hemoglobin 31.3 pg (27.0-33.0); Mean Platelet Volume 9.6 fL (9.4-12.4); Monocytes Absolute Auto 1.1 X10*3/uL (0.1-1.2); Monocytes Percent Auto 7.8 % (2-11); NRBC Pct Auto 0.1 /100WBC (0.0-0.2); Neutrophils Absolute Auto 11.8 x10*3/uL (2.0-8.3); Neutrophils Percent Auto 84.8 % (45-73); Platelet Count 293 X10*3/uL (160-400); Red Blood Count 3.23 X10*6/uL (4.60-5.80); Red Cell Distribution Width 16.7 % (11.0-16.0); White Blood Count 13.9 X10*3/uL (4.8-10.8)
[2023-04-01 05:17] LABS: Alanine Aminotransferase 9 U/L (0-40); Alkaline Phosphatase 68 U/L (39-117); Anion Gap 13 (12-20); Aspartate Amino Transferase 22 U/L (5-37); Bilirubin Total 1.4 mg/dL (0.0-1.0); Blood Urea Nitrogen 12 mg/dL (9-16); Calcium 8.8 mg/dL (8.4-10.2); Carbon Dioxide 24 mmol/L (22-29); Chloride 106 mmol/L (96-108); Creatinine Clr Calc Pharmacy 103.7; Estimated Glomerular Filt Rate > 60; Glucose Random 116 mg/dL (60-115); Magnesium 1.8 mg/dL (1.6-2.6); Phosphorus 3.4 mg/dL (2.7-4.5); Potassium 3.7 mmol/L (3.3-5.1); Sodium 139 mmol/L (135-145); Total Protein 6.2 g/dL (6.5-8.0)
[2023-04-01] MEDS: Levothyroxine Sodium 75 MCG TABLET G-TUBE (05:30)
[2023-04-01] MEDS: Pantoprazole Sodium 40 MG/10 ML VIAL IVPUSH ×2 (05:32→17:32)
--- NOTE | 2023-04-01 06:37 | PC.NURSE ---
ASSUMED CARE OF PT AT 1900. PT A&OX3, FOLLOWING COMMANDS AND MAYO EQUALLY. HEMODYNAMICALLY STABLE. ABLE TO BE WEANED OF PHENYLEPHRINE. BP AT THIS TIME 165/84. NO RECTAL BLEEDING DURING THE NIGHT. NO BM. PT RECEIVED 2 UNITS OF LRBC WITHOUT COMPLICATION. OCTREOTIDE INFUS ORDERED. MONITOR SHOWS NSR, RATE 90'S, NO ECTOPY OBSERVED. VOIDING WELL IN URINOL QS. C/O LOW BACK PAIN PT STAES IS CHRONIC AND POSTERIOR NECK PAIN BOTH RELIEVED BY MORPHINE SULFATE 2 MG IV.
[2023-04-01] MEDS: 0.9 % Sodium Chloride Flush 3 ML SYRINGE IVFLUSH ×3 (07:29→21:01)
--- NOTE | 2023-04-01 07:49 | HO.POSTANES ---
Post Anesthesia Evaluation Post Anesthesia Evaluation Date of Service: 04/01/23 Vital Signs: Vital Signs Temp Pulse Resp BP Pulse Ox O2 Del Method 04/01/23 07:00 109 H 14 154/73 H 96 Room Air 04/01/23 04:29 14 04/01/23 04:11 99.4 F 102 H 18 163/84 H 04/01/23 00:54 99.3 F 92 16 151/68 H 04/01/23 00:40 99.1 F 96 18 154/68 H 04/01/23 00:39 99.1 F 98 18 155/77 H 04/01/23 00:17 98 151/75 H 04/01/23 00:06 18 04/01/23 06:00 105 H 16 165/84 H 94 Room Air 04/01/23 05:00 97.3 F 104 H 15 159/79 H 96 Room Air 04/01/23 04:00 103 H 18 163/84 H 96 Room Air 04/01/23 03:00 101 H 15 165/77 H 97 Room Air 04/01/23 02:00 97 11 L 152/77 H 97 Room Air 04/01/23 01:00 92 20 149/68 H 99 Room Air 04/01/23 00:00 98 12 151/77 H 99 Room Air 03/31/23 23:10 96 139/65 03/31/23 23:00 94 13 139/72 99 03/31/23 22:00 88 20 136/61 100 Room Air 03/31/23 22:25 94 149/69 H 03/31/23 22:10 99 F 97 18 133/67 03/31/23 21:56 99.1 F 96 18 144/63 H 03/31/23 21:43 95 127/60 03/31/23 21:00 92 16 117/45 L 98 Room Air 03/31/23 20:00 98.4 F 84 15 141/66 H 97 Room Air 03/31/23 19:56 94 154/76 H
[2023-04-01 07:50] LABS: Venous Blood Gas Refer to POC result
--- NOTE | 2023-04-01 08:09 | HO.POSTANES ---
Post Anesthesia Evaluation Post Anesthesia Evaluation Date of Service: 04/01/23 Vital Signs: Vital Signs Temp Pulse Resp BP Pulse Ox O2 Del Method 04/01/23 08:01 106 H 158/76 H 04/01/23 07:00 109 H 14 154/73 H 96 Room Air 04/01/23 04:29 14 04/01/23 04:11 99.4 F 102 H 18 163/84 H 04/01/23 00:54 99.3 F 92 16 151/68 H 04/01/23 00:40 99.1 F 96 18 154/68 H 04/01/23 00:39 99.1 F 98 18 155/77 H 04/01/23 00:17 98 151/75 H 04/01/23 00:06 18 04/01/23 06:00 105 H 16 165/84 H 94 Room Air 04/01/23 05:00 97.3 F 104 H 15 159/79 H 96 Room Air 04/01/23 04:00 103 H 18 163/84 H 96 Room Air 04/01/23 03:00 101 H 15 165/77 H 97 Room Air 04/01/23 02:00 97 11 L 152/77 H 97 Room Air 04/01/23 01:00 92 20 149/68 H 99 Room Air 04/01/23 00:00 98 12 151/77 H 99 Room Air 03/31/23 23:10 96 139/65 03/31/23 23:00 94 13 139/72 99 03/31/23 22:00 88 20 136/61 100 Room Air 03/31/23 22:25 94 149/69 H 03/31/23 22:10 99 F 97 18 133/67 03/31/23 21:56 99.1 F 96 18 144/63 H 03/31/23 21:43 95 127/60 03/31/23 21:00 92 16 117/45 L 98 Room Air Anesthesia: Monitored Mental Status: Awake Pain Control: Satisfactory Nausea/Vomiting: None Hydration: Adequate Anesthesia-Related Issues: No Anes. Related Issues
--- NOTE | 2023-04-01 08:22 | PM.CCPN ---
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 Patient underwent EGD with visualization of the avium formation with some bleeding. Postprocedure patient hypotensive secondary to acute blood loss anemia requiring pressor support and transfer to intensive care unit. Started on octreotide and transfuse 2 units of packed red blood cells with stabilization of hemoglobin and now rib bleeding. Titrated off pressors overnight. Critical Care Time (minutes): 0 Physical Exam Vital Signs: Vital Signs: Last Vital Signs Temp 98.5 F 04/01/23 08:00 Pulse 106 H 04/01/23 08:01 Resp 15 04/01/23 08:00 BP 158/76 H 04/01/23 08:01 Pulse Ox 96 04/01/23 08:00 O2 Del Method Room Air 04/01/23 08:00 O2 Flow Rate 8 03/31/23 16:54 BMI result Body Mass Index 21.1 Const: General: no acute distress, alert and awake Eyes: Sclerae: sclerae normal EOM: EOMs intact bilaterally Neck: Neck: Yes no lymphadenopathy, Yes trachea midline and Yes supple Resp: Effort & Inspection: normal respiratory effort and no respiratory distress Auscultation: clear to auscultation bilaterally Cardio: Rate: regular rate Rhythm: regular rhythm Heart sounds: no gallops, no murmurs and no rubs GI: Palpation (GI): Soft to palpation and Other GI palpation findings present ( Nontender) Auscultation: normal bowel sounds Extrem: General: Yes no pedal edema, No clubbing and No cyanosis Objective Data Labs 04/01/23 04:23 04/01/23 04:23 Labs: Laboratory Results - last 24 hr 03/30/23 03/31/23 03/31/23 22:23 17:59 17:59 WBC 12.0 H RBC 2.30 L Hgb 7.3 L Hct 22.3 L MCV 97.0 MCH 31.7 MCHC 32.7 RDW 18.6 H Plt Count 325 MPV 9.7 Immature Gran % (Auto) 2.6 H Neut % (Auto) 78.4 H Lymph % (Auto) 7.3 L Overton % (Auto) 9.6 Eos % (Auto) 1.3 Baso % (Auto) 0.8 Lymph # (Auto) 0.9 L [place] # (Auto) 1.2 Eos # (Auto) 0.2 Baso # (Auto) 0.1 Abs Immat Gran (auto) 0.31 H Absolute Neuts (auto) 9.4 H Absolute Nucleated RBC 0.000 Nucleated RBC % (auto) 0.0 VBG pH VBG pCO2 VBG pO2 VBG HCO3 VBG O2 Saturation VBG Base Excess Sodium 138 Potassium 4.0 Chloride 107 Carbon Dioxide 26 Anion Gap 9 L BUN 17 H Creatinine 0.52 Estim Creat Clear Calc 111.6 Estimated GFR > 60 Random Glucose 94 Calcium 8.6 Phosphorus Magnesium Total Bilirubin AST ALT Alkaline Phosphatase Total Protein Albumin Blood Type O Positive Antibody Screen NEGATIVE Crossmatch See Detail 03/31/23 04/01/23 04/01/23 18:31 04:22 04:23 WBC 13.9 H RBC 3.23 L D Hgb 10.1 L D Hct 29.7 L D MCV 92.0 D MCH 31.3 MCHC 34.0 RDW 16.7 H Plt Count 293 MPV 9.6 Immature Gran % (Auto) 0.8 H Neut % (Auto) 84.8 H Lymph % (Auto) 4.6 L Over[place] % (Auto) 7.8 Eos % (Auto) 1.2 Baso % (Auto) 0.8 Lymph # (Auto) 0.6 L [place] # (Auto) 1.1 Eos # (Auto) 0.2 Baso # (Auto) 0.1 Abs Immat Gran (auto) 0.11 H Absolute Neuts (auto) 11.8 H Absolute Nucleated RBC 0.020 H Nucleated RBC % (auto) 0.1 VBG pH 7.40 7.52 H VBG pCO2 53 31 VBG pO2 74 76 VBG HCO3 33 H 26 VBG O2 Saturation 97.0 97.0 VBG Base Excess 8.1 3.8 Sodium Potassium Chloride Carbon Dioxide Anion Gap BUN Creatinine Estim Creat Clear Calc Estimated GFR Random Glucose Calcium Phosphorus Magnesium Total Bilirubin AST ALT Alkaline Phosphatase Total Protein Albumin Blood Type Antibody Screen Crossmatch 04/01/23 04:23 WBC RBC Hgb Hct MCV MCH MCHC RDW Plt Count MPV Immature Gran % (Auto) Neut % (Auto) Lymph % (Auto) Overton % (Auto) Eos % (Auto) Baso % (Auto) Lymph # (Auto) Overton # (Auto) Eos # (Auto) Baso # (Auto) Abs Immat Gran (auto) Absolute Neuts (auto) Absolute Nucleated RBC Nucleated RBC % (auto) VBG pH VBG pCO2 VBG pO2 VBG HCO3 VBG O2 Saturation VBG Base Excess Sodium 139 Potassium 3.7 Chloride 106 Carbon Dioxide 24 Anion Gap 13 BUN 12 Creatinine 0.56 Estim Creat Clear Calc 103.7 Estimated GFR > 60 Random Glucose 116 H Calcium 8.8 Phosphorus 3.4 Magnesium 1.8 Total Bilirubin 1.4 H AST 22 ALT 9 Alkaline Phosphatase 68 Total Protein 6.2 L Albumin 3.0 L Blood Type Antibody Screen Crossmatch Progress Note: A&P Assessment and plan (1) Acute on chronic anemia: Status: Acute (2) Acute GI bleeding: Status: Acute (3) Pulmonary fibrosis: Status: Acute Plan Assessment: 72-year-old gentleman with known GI IV malformation admitted with subacute melena with EGD demonstrating small active bleed that responded to octreotide Plan: Neuro: No acute issues. Cardiac: No acute issues. Pulmonary: No acute issues. Renal: No acute issues. Endo: No acute issues. GI: Acute on chronic GI bleed status post EGD with inability to intervene on small AV bleed. Responded to octreotide. GI service care appreciated. ID: No acute issues Heme/Onc: Acute blood loss anemia secondary to GI bleed. Hemoglobin stabilized. Continue to monitor hemoglobin level. Psych: No acute issues. Miscellaneous: No acute issues. Prophylaxis: Pneumatic compression Diet: Clear liquids Quality Stroke Does the patient have a stroke diagnosis?: No VTE Prior VTE?: No VTE Risk Level:: Medical - moderate - high VTE Device Contraindication: N/A - Device Ordered VTE Drug Contraindication: Treatment Not Indicated
--- NOTE | 2023-04-01 09:52 | MHC.CM.PN ---
IMM DELIVERED PT LIVES WITH SPOUSE. INDEPENDENT AT BASELINE. + HCP ON FILE + COVID VAX PCP DR. WALKER DP: HOME, NO SERVICES ANTICIPATED. DAUGHTER TO TRANSPORT ON DC. CM WILL CONTINUE TO FOLLOW FOR DC NEEDS/PLAN
--- NOTE | 2023-04-01 10:40 | MHC.CLN ---
PT WITH G-TUBE IN PLACE-CURRENTLY CLAMPED AND MAY REQUIRE ALTERNATIVE NUTRITION R/T GIB, HX ESOPHAGEAL STRICTURES AND THROAT CA S/P RAD TX PT CURRENTLY RECEIVING C/L DIET WILL ADD ENSURE CLEAR TO INCREASE KCALS IF TF TO RE-START; RECOMMEND VITAL 1.5 AT MAX GOAL RATE 50ML/HR AND 120ML FREE WATER FLUSHES Q 8 HRS TO PROVIDE 1800KCALS (30KCALS/KG), 81G PROTEIN (1.3G/KG), 1931ML TOTAL WATER FROM FORMULA AND FLUSHES (32ML/KG) START FORMULA AT 20ML/HR AND INCREASE BY 10ML Q 4 HRS UNTIL MAX GOAL IS ACHIEVED MONITOR PO CLOSELY AND START TF NEEDED SEE ALSO FULL CLINICAL NUTRITION ASSESSMENT
--- NOTE | 2023-04-01 10:53 | MHC.CM.PN ---
Patient is unavailable; CM spoke with Daughter/HCP/Meredith at [phone] and addressed IMM with her (original will be mailed certified letter to Meredith and a copy will be placed on the chart). 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 CM has initiated and will follow for dc planning. Patient has received Moderna/Covid vax x3 and his PCP is Dr. Tracy Oneill.
--- NOTE | 2023-04-01 13:00 | PM.EVENT ---
Event Note Date of Service: 04/01/23 Event Note: No reported bleeding overnight Hb stable at 10 advance diet as tolerated GI rec to continue Octreotide Start Amlodipine for elevated BP readings. Time Spent With Patient Time: Total time managing care of this patient today ____ minutes.
[2023-04-01] MEDS: amLODIPine Besylate 5 MG TABLET PO (14:10)
[2023-04-01] MEDS: traMADoL HCL 50 MG TABLET PO (21:06)
[2023-04-01] MEDS: Gabapentin 400 MG CAPSULE PO (21:07)
[2023-04-02] VITALS (8 sets, daily range): BP systolic 130–146; BP diastolic 60–74; PULSE 75–102; RESP 14–20; TEMP 36.1–36.9; O2SAT 96–98; BMI 20.1
[2023-04-02] MEDS: Octreotide Acetate 500 MCG in 0.9 % Sodium Chloride 500 ML 50.1 MCG IVCONT (01:37)
[2023-04-02] MEDS: Morphine Sulfate 2 MG/ML CARTRIDGE IVPUSH ×4 (04:33→23:19)
[2023-04-02] MEDS: Pantoprazole Sodium 40 MG/10 ML VIAL IVPUSH ×2 (05:17→17:49)
[2023-04-02] MEDS: Levothyroxine Sodium 75 MCG TABLET G-TUBE (05:17)
[2023-04-02 07:26] LABS: MANUAL DIFF FLAG NO
[2023-04-02 07:33] LABS: Basophils Absolute Auto 0.1 X10*3/uL (0.0-0.2); Basophils Percent Auto 0.8 % (0-2); Eosinophils Absolute Auto 0.2 X10*3/uL (0.0-0.4); Eosinophils Percent Auto 1.9 % (0-4); Hematocrit 30.1 % (42.0-52.0); Hemoglobin 10.2 g/dl (14.0-18.0); Lymphocytes Absolute Auto 0.6 X10*3/uL (1.2-4.9); Lymphocytes Percent Auto 5.8 % (20-40); Mean Corpuscular HGB Conc 33.9 g/dl (31.0-36.0); Mean Corpuscular Hemoglobin 31.7 pg (27.0-33.0); Mean Corpuscular Volume 93.5 fL (80.0-98.0); Mean Platelet Volume 9.1 fL (9.4-12.4); Monocytes Absolute Auto 1.1 X10*3/uL (0.1-1.2); Neutrophils Absolute Auto 7.9 x10*3/uL (2.0-8.3); Neutrophils Percent Auto 79.5 % (45-73); Platelet Count 281 X10*3/uL (160-400); Red Blood Count 3.22 X10*6/uL (4.60-5.80); Red Cell Distribution Width 17.4 % (11.0-16.0); White Blood Count 9.9 X10*3/uL (4.8-10.8)
[2023-04-02 07:43] LABS: Albumin Level 3.1 g/dL (3.5-5.0); Anion Gap 14 (12-20); Blood Urea Nitrogen 8 mg/dL (9-16); Carbon Dioxide 22 mmol/L (22-29); Chloride 105 mmol/L (96-108); Creatinine Clr Calc Pharmacy 91.6; Estimated Glomerular Filt Rate > 60; Glucose Random 102 mg/dL (60-115); Magnesium 1.9 mg/dL (1.6-2.6); Phosphorus 2.9 mg/dL (2.7-4.5); Potassium 3.2 mmol/L (3.3-5.1); Sodium 138 mmol/L (135-145)
[2023-04-02] MEDS: amLODIPine Besylate 2.5 MG TABLET G-TUBE (09:20)
[2023-04-02] MEDS: 0.9 % Sodium Chloride Flush 3 ML SYRINGE IVFLUSH ×3 (09:21→19:55)
[2023-04-02] MEDS: Octreotide Acetate 100 MCG/ML AMPUL SUBCUT ×2 (11:58→18:15)
[2023-04-02] MEDS: traMADoL HCL 50 MG TABLET PO ×2 (11:58→19:54)
--- NOTE | 2023-04-02 15:42 | P.PNIM_ITS ---
Subjective Subjective Date of Service: 04/02/23 Interval History: Seen and evaluated Hb stable tolerating clear liquids No reported bleeding Review of Systems Review of Systems: Yes all other systems are reviewed and are negative Physical Exam Vital Signs: Vital Signs: Last Vital Signs Temp 98.2 F 04/02/23 10:52 Pulse 94 04/02/23 10:52 Resp 20 04/02/23 10:52 BP 135/62 04/02/23 10:52 Pulse Ox 97 04/02/23 10:52 O2 Del Method Room Air 04/02/23 10:52 O2 Flow Rate 8 03/31/23 16:54 BMI result Body Mass Index 20.1 Const: Other: Constitutional : Awake, interactive, not in distress Neck : Normal inspection, Supple Cardiovascular : RRR, no JVP, no lower extremity edema Respiratory : good bilateral air entry, no crackles, wheezes or rhonchi Gastrointestinal: soft, lax, Normal bowel sounds, Non tender, G-tube in place with no surrounding erythema Skin : Warm, Dry Neurological : Alert & oriented x3, No focal deficit Objective Data Active Medications Acetaminophen (Acetaminophen 325 Mg Tablet) 650 mg PO Q6H PRN PRN Reason: Pain, Mild (Pain Scale 1-3) Last Admin: 04/01/23 15:26 Dose: 650 mg Documented By: LELAND Acetaminophen (Acetaminophen Supp 650 Mg Supp.Rect) 650 mg AK Q6H PRN PRN Reason: Pain, Mild (Pain Scale 1-3) Amlodipine Besylate (Amlodipine Besylate 2.5 Mg Tablet) 2.5 mg G-TUBE DAILY [facility]; Protocol Last Admin: 04/02/23 09:20 Dose: 2.5 mg Documented By: SUGAR Guaifenesin (Guaifenesin La 600 Mg Tab.Er.12h) 600 mg PO BID [facility] Last Admin: 04/02/23 12:05 Dose: Not Given Documented By: SUGAR Non-Admin Reason: unable to crush med Levothyroxine Sodium (Levothyroxine Sodium 75 Mcg Tablet) 75 mcg G-TUBE DAILY@0600 [facility] Last Admin: 04/02/23 05:17 Dose: 75 mcg Documented By: WINTER Morphine Sulfate (Morphine Sulfate 2 Mg/Ml Cartridge) 2 mg IVPUSH Q4H PRN; Protocol PRN Reason: Pain, Severe (Pain Scale 7-10) Last Admin: 04/02/23 09:19 Dose: 2 mg Documented By: SUGAR Octreotide Acetate (Octreotide Acetate 100 Mcg/Ml Ampul) 100 mcg SUBCUT Q8H [facility] Last Admin: 04/02/23 11:58 Dose: 100 mcg Documented By: SUGAR Pantoprazole Sodium (Pantoprazole Sodium 40 Mg/10 Ml Vial) 40 mg IVPUSH BID@0630,1630 [facility] Last Admin: 04/02/23 05:17 Dose: 40 mg Documented By: WINTER Pharmacy Consult (Consult Rx Perform Med Rec) 1 each MISCELLANE ONCE PRN PRN Reason: Consult order Sodium Chloride (0.9 % Sodium Chloride Flush 3 Ml Syringe) 3 ml IVFLUSH QSHIFT [facility] Last Admin: 04/02/23 09:21 Dose: 3 ml Documented By: SUGAR Tramadol HCl (Tramadol Hcl 50 Mg Tablet) 50 mg PO TID PRN PRN Reason: Pain, Moderate(Pain Scale 4-6) Last Admin: 04/02/23 11:58 Dose: 50 mg Documented By: SUGAR Triamcinolone Acetonide (Triamcinolone Acet 0.5 % Cream 15 Gm Tube) 1 appl TOPICAL BID PRN; Protocol PRN Reason: Rash Labs 04/02/23 07:20 04/02/23 07:20 Labs: Laboratory Results - last 24 hr 04/02/23 04/02/23 07:20 07:20 MCV 93.5 MCH 31.7 MCHC 33.9 RDW 17.4 H Plt Count 281 MPV 9.1 L Immature Gran % (Auto) 1.0 H Neut % (Auto) 79.5 H Lymph % (Auto) 5.8 L [place] % (Auto) 11.0 Eos % (Auto) 1.9 Baso % (Auto) 0.8 Lymph # (Auto) 0.6 L [place] # (Auto) 1.1 Eos # (Auto) 0.2 Baso # (Auto) 0.1 Abs Immat Gran (auto) 0.10 H Absolute Neuts (auto) 7.9 Absolute Nucleated RBC 0.000 Nucleated RBC % (auto) 0.0 Anion Gap 14 Estim Creat Clear Calc 91.6 Estimated GFR > 60 Random Glucose 102 Calcium 9.0 Phosphorus 2.9 Magnesium 1.9 Albumin 3.1 L Assessment and Plan (1) Anemia due to GI blood loss: Status: Acute (2) Acute on chronic anemia: Status: Acute (3) LUISA (acute kidney injury): Status: Acute Plan this is a 72-year-old male with past medical history as mentioned above comes into the hospital with bright red blood per rectum found to have acute anemia # acute on chronic anemia secondary to GI bleed in the setting of naproxen use EGD Showed 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 Change Octreotide to SC tid for 1 month GI input appreciated, no NSAIDS Advance tube feed Iron supplement # hypertension restart amlodipine # hypothyroidism continue levothyroxine # chronic pain continue home analgesics DVT prophylaxis: SCDs NEed overnight stay for monitoring of advancing diet, monitor H&H pending safe discharge plan Time Spent With Patient Time: Total time managing care of this patient today ____ minutes. Quality Stroke Does the patient have a stroke diagnosis?: No VTE Prior VTE?: No VTE Risk Level:: Medical - moderate - high VTE Device Contraindication: N/A - Device Ordered VTE Drug Contraindication: Treatment Not Indicated
[2023-04-02] MEDS: guaiFENesin LA 600 MG TAB.ER.12H PO (21:04)
[2023-04-03] MEDS: Octreotide Acetate 100 MCG/ML AMPUL SUBCUT ×2 (01:41→09:52)
[2023-04-03 03:09] VITALS: BP 150/74; PULSE 76; RESP 16; TEMP 36.4; O2SAT 97
[2023-04-03 03:27] VITALS: BMI 20.1
[2023-04-03] MEDS: Morphine Sulfate 2 MG/ML CARTRIDGE IVPUSH ×2 (04:09→08:37)
[2023-04-03] MEDS: Levothyroxine Sodium 75 MCG TABLET G-TUBE (05:33)
[2023-04-03] MEDS: Pantoprazole Sodium 40 MG/10 ML VIAL IVPUSH (05:33)
[2023-04-03 07:11] VITALS: BP 155/72; PULSE 72; RESP 20; TEMP 36.9; O2SAT 97
[2023-04-03 07:52] LABS: Hematocrit 29.2 % (42.0-52.0); Hemoglobin 9.7 g/dl (14.0-18.0); Mean Corpuscular HGB Conc 33.2 g/dl (31.0-36.0); Mean Corpuscular Hemoglobin 31.3 pg (27.0-33.0); Mean Corpuscular Volume 94.2 fL (80.0-98.0); Mean Platelet Volume 9.8 fL (9.4-12.4); Platelet Count 286 X10*3/uL (160-400); Red Cell Distribution Width 17.4 % (11.0-16.0); White Blood Count 5.9 X10*3/uL (4.8-10.8)
[2023-04-03 07:58] LABS: Anion Gap 13 (12-20); Blood Urea Nitrogen 8 mg/dL (9-16); Calcium 8.8 mg/dL (8.4-10.2); Carbon Dioxide 23 mmol/L (22-29); Chloride 104 mmol/L (96-108); Creatinine Clr Calc Pharmacy 101.7; Estimated Glomerular Filt Rate > 60; Glucose Random 142 mg/dL (60-115); Potassium 3.1 mmol/L (3.3-5.1); Sodium 137 mmol/L (135-145)
[2023-04-03 08:37] VITALS: RESP 20
[2023-04-03] MEDS: guaiFENesin LA 600 MG TAB.ER.12H PO (08:39)
[2023-04-03] MEDS: 0.9 % Sodium Chloride Flush 3 ML SYRINGE IVFLUSH (08:39)
[2023-04-03] MEDS: amLODIPine Besylate 2.5 MG TABLET G-TUBE (08:39)
[2023-04-03] MEDS: Gabapentin 100 MG CAPSULE 200 MG PO (09:52)
[2023-04-03] MEDS: Potassium Chloride Packet 20 MEQ PACKET 40 MEQ G-TUBE (09:52)
[2023-04-03 11:08] VITALS: BP 133/64; PULSE 76; RESP 20; TEMP 36.3; O2SAT 100
[2023-04-03 11:24] VITALS: BP 133/64; PULSE 76; O2SAT 100
--- NOTE | 2023-04-03 11:33 | PM.DS ---
DS: Providers Provider Date of Service: 04/03/23 Date of admission: 03/31/23 00:03 Primary care physician: Tracy Oneill MD Consults: 03/31/23 00:01 Consult to Gastroenterology Routine Consulting Provider: Renard Payan Reason for consultation: gi bleed Has provider been notified: No DS: Diagnosis Discharge Diagnosis (1) Anemia due to GI blood loss: Status: Acute (2) Acute on chronic anemia: Status: Acute DS: Summary Hospital Course Hospital Course: Admission note HPI 72-year-old male with past medical history of aortic aneurysm, throat cancer status post radiation therapy, hypertension, GERD, esophageal strictures, depression, COPD, among others comes into the hospital with complaints of bright red blood per rectum as well as black stools.? Patient reports history of anemia, he follows up with production support engineer, but reports for the past 2 days he has noticed bright red blood with every bowel movement.? He has had diarrhea that has been black.? Despite the fact that he has stopped his iron supplements about a month ago.? He reports dizziness, shortness of breath on exertion, weakness, and feeling generally unwell.? Denies any abdominal pain, no chest pain, no palpitations, no urinary symptoms and no lower extremity edema.?He does state that for the past 1 week he has been taking [id number] naproxen 3 times a day for management of his throat pain. On arrival to the ED patient hemodynamically stable. Labs are significant for WBC count of 4.7, hemoglobin of 6 with a baseline of around 8-9, hematocrit 19.2, stool occult blood positive. Patient receiving 2 units of PRBC and will be admitted for further management Hospital course # acute on chronic anemia secondary to GI bleed in the setting of naproxen use noted to have blood per rectum with low Hb of 6. requrited total of 6 units PRBCs to bring his number up to 10. 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 Hb remained stable as he tolerated liquid diet and tube feeds. GI recommended, no NSAIDS. Advance tube feed to home dose. to give Iron supplement. # hypertension Noted to have mildly elevated readings. Started on 2.5 mg amlodipine with fair response. to monitor as outpatient. Avoid all NSAIDs family medications. Use Tylenol\Tramadol for pain. Continue Octreotide injections for 1 month Increase Omeprazole to 40 mg twice daily Ferrous sulphate daily Start Amlodipine for elevated blood pressure readings Come back to the hospital for any evidence of bleeding, lethargy or fever Time Spent with Patient Time attestation: Total time managing care of this patient today ____ minutes. Discharge coordination time: Greater than 30 minutes Quality: Safe Use of Opioids Does Pt have an Active Cancer Diagnosis on the Problem List?: No Quality: Stroke Does the patient have a stroke diagnosis?: No Physical Exam Vital Signs: Vital Signs: Last Vital Signs Temp 97.4 F 04/03/23 11:08 Pulse 76 04/03/23 11:08 Resp 20 04/03/23 11:08 BP 133/64 04/03/23 11:08 Pulse Ox 100 04/03/23 11:08 O2 Del Method Room Air 04/03/23 11:08 O2 Flow Rate 8 03/31/23 16:54 BMI result Body Mass Index 20.1 Const: Other: Constitutional : Awake, interactive, not in distress Neck : Normal inspection, Supple Cardiovascular : RRR, no JVP, no lower extremity edema Respiratory : good bilateral air entry, no crackles, wheezes or rhonchi Gastrointestinal: soft, lax, Normal bowel sounds, Non tender, G-tube in place with no surrounding erythema Skin : Warm, Dry Neurological : Alert & oriented x3, No focal deficit DS: Data Data Completed and Pending Completed studies during hospitalization [Text1]: Procedures Change Feeding Device in Upper Intestinal Tract, External Approach (02/02/23) Destruction of Ascending Colon, Via Natural or Artificial Opening Endoscopic (11/18/22) Destruction of Cecum, Via Natural or Artificial Opening Endoscopic (11/18/22) Destruction of Duodenum, Via Natural or Artificial Opening Endoscopic (11/18/22) Dilation of Esophagus, Via Natural or Artificial Opening Endoscopic (03/04/21) Dilation of Lower Esophagus, Via Natural or Artificial Opening Endoscopic (11/18/22) Dilation of Middle Esophagus, Via Natural or Artificial Opening Endoscopic (11/18/22) Excision of Esophagus, Via Natural or Artificial Opening Endoscopic, Diagnostic (11/18/22) Excision of Stomach, Pylorus, Via Natural or Artificial Opening Endoscopic, Diagnostic (11/18/22) Insertion of Feeding Device into Stomach, Open Approach (07/09/22) Transfusion of Nonautologous Red Blood Cells into Peripheral Vein, Percutaneous Approach (02/02/23) Labs on day of discharge: Laboratory Results - last 24 hr 04/03/23 04/03/23 07:10 07:10 WBC 5.9 RBC 3.10 L Hgb 9.7 L Hct 29.2 L MCV 94.2 MCH 31.3 MCHC 33.2 RDW 17.4 H Plt Count 286 MPV 9.8 Absolute Nucleated RBC 0.000 Nucleated RBC % (auto) 0.0 Sodium 137 Potassium 3.1 L Chloride 104 Carbon Dioxide 23 Anion Gap 13 BUN 8 L Creatinine 0.54 Estim Creat Clear Calc 101.7 Estimated GFR > 60 Random Glucose 142 H Calcium 8.8 Imaging Chest x-ray: Radiologist's impression: ITS Impressions Abdomen/Pelvis CT 03/31/23 00:01 IMPRESSION: 1. A cause for the patient's rectal bleeding has not been found. No extravasation of contrast is seen into bowel lumen. The study is limited by oral contrast media within both colon and small bowel. 2. Other incidental findings as described above. Fleischner guidelines were followed. Discharge Plan Discharge Anticipated Discharge Date/Time: 04/03/23 11:25 Patient Disposition: Home, Self-Care Discharge Diagnosis: Acute gastrointestinal bleed Referrals: Tracy Oneill MD [Primary Care Provider] - 1 Week Discharge Medications: New octreotide acetate 100 mcg/mL Solution 100 mcg subcut Q8H 30 Days Qty: 90 0RF amlodipine 2.5 mg Tablet 2.5 mg G-tube DAILY Qty: 30 0RF Protocol: Hold for SBP< HOLD for SBP < : 90 guaifenesin [Mucinex] 600 mg Tablet Extended Release 12hr 600 mg PO BID Qty: 10 0RF ferrous sulfate 325 mg (65 mg iron) tablet 325 mg feeding tube DAILY Qty: 30 0RF Continued Anoro Ellipta 62.5-25 mcg/actuation Blister With Device 1 inh INHALATION DAILY gabapentin 400 mg capsule 400 mg feeding tube TID Qty: 30 0RF cyanocobalamin (vitamin B-12) [Vitamin B-12] 1,000 mcg tablet 1,000 mcg feeding tube DAILY Qty: 30 0RF levothyroxine 75 mcg tablet 75 mcg feeding tube DAILY@0600 Qty: 30 0RF acetaminophen [M-PAP] 160 mg/5 mL liquid 10 ml feeding tube TID PRN (Reason: pain) triamcinolone acetonide 0.5 % cream 1 appl topical BID PRN (Reason: Rash) tizanidine 4 mg tablet 1 tab PO BEDTIME fluticasone propionate [Flovent HFA] 110 mcg/actuation HFA aerosol inhaler 2 puff INHALATION BID PRN (Reason: Shortness Of Breath Or Wheezing) duloxetine 30 mg capsule,delayed release(DR/EC) 1 cap PO DAILY Rx Instructions: TAKE WITH 60MG duloxetine 60 mg capsule,delayed release(DR/EC) 1 cap PO DAILY Rx Instructions: TAKE WITH 30MG levocetirizine 5 mg tablet 1 tab PO BEDTIME fluticasone propionate 50 mcg/actuation spray,suspension 2 spray intranasal BID tramadol 50 mg tablet 50 mg PO TID PRN (Reason: Pain, Moderate (Pain Scale 4-6) multivitamin Tablet 1 tab feeding tube DAILY (DME) cane Device See Rx Instructions .Route Qty: 1 0RF Rx Instructions: As directed Changed omeprazole 40 mg capsule,delayed release(DR/EC) 1 cap PO BID Qty: 60 0RF Discontinued cefpodoxime 200 mg tablet 400 mg feeding tube BID Discharge Orders: Discharge Order (Routine); Ordered 04/03/23 Ordered By: Martínez Amato Diet: Tube feed Activity on Discharge: As tolerated Stand Alone Forms: Patient Portal Discharge page Other Ambulatory Orders: Complete Blood Count no Diff (Routine) Timeframe: 5 Days Facility: [facility] - Location: [address] [place] [address]-Lab Ordered By: Martínez Amato Care Plan Goals: Read below Health Concerns: Read below Plan of Treatment: Read below Assessment: You were admitted for evaluation of bleeding per rectum with associated worsening anemia. Evaluated by semiconductor wafers saw operator who did an Endoscopy showing an evidence of Arterio-venous malformation bleeding that was controlled. You were treated with IV Pantoprazole and IV Octreotide drip with good response as you tolerate tube feed. Avoid all NSAIDs family medications. Use Tylenol\Tramadol for pain. Continue Octreotide injections for 1 month Increase Omeprazole to 40 mg twice daily Start Amlodipine for elevated blood pressure readings Come back to the hospital for any evidence of bleeding, lethargy or fever Discharge Date/Time: 04/03/23 13:03
--- NOTE | 2023-04-03 11:40 | MHC.CLN ---
CONSULT TUBE FEED STARTED 04/02/23. VITAL 1.5 AT MAX GOAL RATE 50ML/HR AND 120ML FREE WATER FLUSHES Q 8 HRS TO PROVIDE 1800KCALS (30KCALS/KG), 81G PROTEIN (1.3G/KG), 1931ML TOTAL WATER FROM FORMULA AND FLUSHES (32ML/KG). TOLERATING FORMULA AT MAX GOAL RATE VITAL 1.5 AT 50 ML/HOUR. CONTINUE TO FOLLOW FOR TUBE FEED TOLERANCE AND PO INTAKE.
--- NOTE | 2023-04-03 12:02 | P.CDIM_ITS ---
PROVIDER RESPONSE TEXT: To clarify, the appropriate diagnosis supported by the clinical indicators: Diagnosis was ruled out QUERY TEXT: PHYSICIAN'S DOCUMENTATION REQUEST Date of Query: 04/03/2023 08:03 AM EDT Patient Name: Lawrence Lovell Admit Date: 03/31/2023 Dear Martínez Amato, A review of the medical record indicates additional documentation may be needed. Please review below and update the documentation accordingly. Clinical Indicators: PN 04/02 - Assessment and plan: LUISA, acute GFR >60 CR: 0.59 BUN 17 Please clarify the following: For consistency and clarity, if treating acute kidney injury noted: Diagnosis was present on admission and is now resolved Diagnosis was present on admission and is still being monitored, evaluated, or treated Diagnosis was ruled out Diagnosis is still a likely, suspected, probable diagnosis Other (explain)Clinically unable to determine (explain)Thank you, Nicole Hinojosa, CCS, CDIS Use of terms such as suspected, likely, concern for, or probable (associated with a specific diagnosi s that is being evaluated, monitored, or treated as if it exists) are acceptable and can be coded in the inpatient se tting, when documented at the time of discharge. Please use your independent medical judgment in providing your response. THIS QUERY IS PART OF THE PERMANENT MEDICAL RECORD
[2023-04-03 12:05] LABS: Hematocrit 30.5 % (42.0-52.0); Hemoglobin 10.2 g/dl (14.0-18.0); Mean Corpuscular HGB Conc 33.4 g/dl (31.0-36.0); Mean Corpuscular Hemoglobin 31.6 pg (27.0-33.0); Mean Corpuscular Volume 94.4 fL (80.0-98.0); Mean Platelet Volume 9.4 fL (9.4-12.4); Platelet Count 285 X10*3/uL (160-400); Red Blood Count 3.23 X10*6/uL (4.60-5.80); Red Cell Distribution Width 17.6 % (11.0-16.0); White Blood Count 6.9 X10*3/uL (4.8-10.8)
--- NOTE | 2023-04-03 12:26 | MHC.CM.PN ---
Per ROUNDS discussion, Patient will be medically cleared for dc to home today, self care. Last IMM addressed on 04/01/2023.
== END 2023-04-03 13:03 | disposition home or self-care (01) | DRG 391 ==
LOC: HO.ED 21:50 → HO.EDOVER 03-31 00:07 → HO.S3 03-31 16:55 → HO.ICU 03-31 17:02 → HO.IMC 04-01 09:43
PROVIDERS: Internal Medicine; Internal Medicine Pulmonary Disease; Admitting Provider Internal Medicine; Emergency Provider Student in an Organized Health Care Education/Training Program; PCP Internal Medicine; Visit Provider Student in an Organized Health Care Education/Training Program
PROC: 0DJ08ZZ Inspection of Upper Intestinal Tract, Via Natural or Artificial Opening Endoscopic (ICD-10-PCS; CPT 43235; principal; 2023-03-31 16:00)
DX: K22.2 Esophageal obstruction (principal); K31.811 Angiodysplasia of stomach and duodenum with bleeding; D62 Acute posthemorrhagic anemia; J44.9 Chronic obstructive pulmonary disease, unspecified; G89.29 Other chronic pain; I95.81 Postprocedural hypotension; I71.40 Abdominal aortic aneurysm, without rupture, unspecified; I10 Essential (primary) hypertension; E03.9 Hypothyroidism, unspecified; T39.315A Adverse effect of propionic acid derivatives, initial encounter; E78.00 Pure hypercholesterolemia, unspecified; Z93.1 Gastrostomy status; Z85.21 Personal history of malignant neoplasm of larynx; Z92.3 Personal history of irradiation; Z87.891 Personal history of nicotine dependence; Z79.890 Hormone replacement therapy; Z79.899 Other long term (current) drug therapy
CPT/HCPCS: 36415; 74178; 80048; 80053; 82040; 82272; 82803; 83735; 84100; 84484; 85025; 85027; 86850; 86900; 86901; 86923; 93005; 97161; 99285; C1769; J2270; J2354; J2370; J2371; P9016; Q9967

== ENCOUNTER → 2023-03-30 21:38 | Outpatient (BNV) | payer OTHER, SELFPAY | PROVIDERS: Admitting Provider Internal Medicine; Emergency Provider Student in an Organized Health Care Education/Training Program; PCP Internal Medicine; Visit Provider Internal Medicine Cardiovascular Disease | DX: R07.9 Chest pain, unspecified (principal) | CPT/HCPCS: 93010 ==

== ENCOUNTER → 2023-03-31 00:03 | Outpatient (BNV) | payer OTHER, SELFPAY | PROVIDERS: Admitting Provider Internal Medicine; Emergency Provider Student in an Organized Health Care Education/Training Program; PCP Internal Medicine; Visit Provider Internal Medicine | DX: K92.2 Gastrointestinal hemorrhage, unspecified (principal) | CPT/HCPCS: 43248; 99232 ==

== ENCOUNTER → 2023-03-31 00:03 | Outpatient (BNV) | payer OTHER, SELFPAY | PROVIDERS: Admitting Provider Internal Medicine; Emergency Provider Student in an Organized Health Care Education/Training Program; PCP Internal Medicine; Visit Provider Internal Medicine Pulmonary Disease | DX: J44.9 Chronic obstructive pulmonary disease, unspecified (principal); I95.9 Hypotension, unspecified | CPT/HCPCS: 99232; 99499 ==

== ENCOUNTER → 2023-03-31 00:03 | Outpatient (BNV) | payer OTHER, SELFPAY | PROVIDERS: Admitting Provider Internal Medicine; Emergency Provider Student in an Organized Health Care Education/Training Program; PCP Internal Medicine; Visit Provider Internal Medicine | DX: D50.0 Iron deficiency anemia secondary to blood loss (chronic) (principal) | CPT/HCPCS: 99223; 99232; 99239; 99499 ==

== ENCOUNTER 2023-04-29 12:29 | Day surgery (SDC) | payer OTHER, SELFPAY ==
[2023-04-27 11:43] VITALS: BMI 20.7
--- NOTE | 2023-04-28 11:53 | HO.ANESPROP2 ---
Documented by User: Naty Castro NP 04/28/23 11:55 HPI - Anesthesia Eval Consult details Narrative: 72yo M for Upper Endoscopy with Balloon Dilitation with Kenalog injection, Colonoscopy [facility] admit 03/2023 with acute blood loss. EGD with MAC Throat CA s/p radiation, poor airway. Needs OR PMFSH Active Problems Active Problems: All Active Problems (Updated 04/04/23 @ 00:02 by Background Justo) Anemia, chronic disease (Acute) Sepsis (Acute) Acute hypoxemic respiratory failure (Acute) Pneumonia (Acute) Mass in neck (Acute) Primary osteoarthritis of left knee (Acute) Pulmonary nodules (Acute) Syncope due to orthostatic hypotension (Acute) History of external beam radiation therapy (Acute) Atherosclerotic cardiovascular disease (Acute) Ascending aortic aneurysm (Acute) Osteoarthritis (Acute) Fibromyalgia (Acute) Cluneal neuropathy (Acute) Lumbar spondylosis (Acute) Dysphagia (Acute) S/P gastrostomy tube (G tube) placement, follow-up exam (Acute) Pulmonary aspiration (Acute) Emphysema lung (Acute) Normochromic normocytic anemia (Acute) Post laminectomy syndrome (Acute) Osteoarthritis of left shoulder (Acute) Past Medical History Medical History Anemia Aortic aneurysm Arthritis Back pain Cancer COPD (chronic obstructive pulmonary disease) COVID-19 Depression Difficulty swallowing Elevated cholesterol Esophageal stricture GERD (gastroesophageal reflux disease) History of chemotherapy History of epistaxis HTN (hypertension) Hx of radiation therapy Lumbar radiculitis Normocytic anemia Osteoarthritis of left shoulder Pain around PEG tube site Post laminectomy syndrome Pulmonary nodule Thyroid disease Uses feeding tube Family History Family History Father Brain cancer Mother CVD (cardiovascular disease) Maternal Aunt Diabetes Family history of problems with anesthesia: No Surgical History Surgical History H/O colonoscopy History of back surgery History of esophagogastroduodenoscopy (EGD) History of nasal surgery History of transurethral resection of prostate History of Problems with Anesthesia: No Social History Social History Household Members: Spouse and Children Household Members Other:: 2 Housing: Apartment Do you presently have visiting nurse or other home services: No Alcohol intake: never Patient Tobacco Use Status: Former Tobacco user Quit Date: 40 years ago Tobacco use type: Cigarette Cigarette Packs Per Day: 3 Years Smoked: 25 e-Cigarette/Vaping Use: Never Used Second Hand Smoke Exposure: No Use of substances other than those prescribed or required for medical reasons: No Are you DNR?: No Advance Directives: No Advance Directives Information Provided: Yes Advance Directives Date on File: 03/04/21 service: No Current occupational status: disabled Meds Allergies Allergy/AdvReac Type Severity Reaction Status Date / Time Penicillins Allergy Intermediate Rash Verified 02/27/23 11:36 aspirin [ASA] AdvReac Intermediate GI BLEED, Verified 02/27/23 11:36 Headaches Home Medications Medication Instructions Recorded Confirmed Last Taken Type umeclidinium 62.5 mcg-vilanterol 1 inh inhalation DAILY 06/21/20 03/31/23 03/30/23 History 25 mcg/actuation powdr for inhalation (Anoro Ellipta) acetaminophen 160 mg/5 mL oral 10 ml feeding tube TID PRN pain 11/18/22 03/31/23 03/30/23 History liquid (M-PAP) duloxetine 30 mg capsule,delayed 1 cap PO DAILY 11/18/22 03/31/23 03/30/23 History release duloxetine 60 mg capsule,delayed 1 cap PO DAILY 11/18/22 03/31/23 03/30/23 History release fluticasone propionate 110 2 puff inhalation BID PRN 11/18/22 03/31/23 03/30/23 History mcg/actuation HFA aerosol inhaler Shortness Of Breath Or Wheezing (Flovent HFA) fluticasone propionate 50 2 spray intranasal BID 11/18/22 03/31/23 03/30/23 History mcg/actuation nasal spray,suspension levocetirizine 5 mg tablet 1 tab PO BEDTIME 11/18/22 03/31/23 03/29/23 History tizanidine 4 mg tablet 1 tab PO BEDTIME 11/18/22 03/31/23 03/29/23 History triamcinolone acetonide 0.5 % 1 appl topical BID PRN Rash 11/18/22 03/31/23 Unknown History topical cream tramadol 50 mg tablet 50 mg PO TID PRN Pain, Moderate 02/02/23 03/31/23 03/30/23 History (Pain Scale 4-6 multivitamin 1 tab feeding tube DAILY 03/31/23 03/31/23 03/30/23 History Exam Exam Date and Time: April 28, 2023 1153 Height,Weight and Vital Signs: Height 5 ft 7 in Weight 59.874 kg Pertinent Lab Results Pertinent Lab Results: Laboratory Tests 04/03/23 04/03/23 07:10 11:58 WBC 6.9 Hgb 10.2 L Hct 30.5 L Plt Count 285 Sodium 137 Potassium 3.1 L Chloride 104 Carbon Dioxide 23 BUN 8 L Creatinine 0.54 Narrative Narrative: EKG 03/2023 Vent. Rate : 096 BPM ? ? Atrial Rate : 096 BPM ?? P-R Int : 118 ms? QRS Dur : 080 ms ? ? QT Int : 364 ms ? ? ? P-R-T Axes : 078 063 075 degrees ?? QTc Int : 459 ms ? Normal sinus rhythm Normal ECG When compared to the previous EKG of No significant changes seen Assessment and Plan Assessment Anesthesia Assessment: Chart Reviewed Final Anesthetic Review Family History of Problems with Anesthesia: No History of Problems with Anesthesia: No Documented by User: Gabriel Scales MD 04/29/23 14:00 [facility] Past Medical History Medical History Anemia Aortic aneurysm Arthritis Back pain Cancer COPD (chronic obstructive pulmonary disease) COVID-19 Depression Difficulty swallowing Elevated cholesterol Esophageal stricture GERD (gastroesophageal reflux disease) History of chemotherapy History of epistaxis HTN (hypertension) Hx of radiation therapy Lumbar radiculitis Normocytic anemia Osteoarthritis of left shoulder Pain around PEG tube site Post laminectomy syndrome Pulmonary nodule Thyroid disease Uses feeding tube Family History Family History Father Brain cancer Mother CVD (cardiovascular disease) Maternal Aunt Diabetes Surgical History Surgical History H/O colonoscopy History of back surgery History of esophagogastroduodenoscopy (EGD) History of nasal surgery History of transurethral resection of prostate History of Problems with Anesthesia: Yes Social History Social History Household Members: Spouse and Children Household Members Other:: 2 Housing: Apartment Do you presently have visiting nurse or other home services: No Alcohol intake: never Patient Tobacco Use Status: Former Tobacco user Quit Date: 40 years ago Tobacco use type: Cigarette Cigarette Packs Per Day: 3 Years Smoked: 25 e-Cigarette/Vaping Use: Never Used Second Hand Smoke Exposure: No Use of substances other than those prescribed or required for medical reasons: No Are you DNR?: No Advance Directives: No Advance Directives Information Provided: Yes Advance Directives Date on File: 03/04/21 service: No Current occupational status: disabled Meds Allergies Allergy/AdvReac Type Severity Reaction Status Date / Time Penicillins Allergy Intermediate Rash Verified 02/27/23 11:36 aspirin [ASA] AdvReac Intermediate GI BLEED, Verified 02/27/23 11:36 Headaches Home Medications Medication Instructions Recorded Confirmed Last Taken Type umeclidinium 62.5 mcg-vilanterol 1 inh inhalation DAILY 06/21/20 03/31/23 03/30/23 History 25 mcg/actuation powdr for inhalation (Anoro Ellipta) acetaminophen 160 mg/5 mL oral 10 ml feeding tube TID PRN pain 11/18/22 03/31/23 03/30/23 History liquid (M-PAP) duloxetine 30 mg capsule,delayed 1 cap PO DAILY 11/18/22 03/31/23 03/30/23 History release duloxetine 60 mg capsule,delayed 1 cap PO DAILY 11/18/22 03/31/23 03/30/23 History release fluticasone propionate 110 2 puff inhalation BID PRN 11/18/22 03/31/23 03/30/23 History mcg/actuation HFA aerosol inhaler Shortness Of Breath Or Wheezing (Flovent HFA) fluticasone propionate 50 2 spray intranasal BID 11/18/22 03/31/23 03/30/23 History mcg/actuation nasal spray,suspension levocetirizine 5 mg tablet 1 tab PO BEDTIME 11/18/22 03/31/23 03/29/23 History tizanidine 4 mg tablet 1 tab PO BEDTIME 11/18/22 03/31/23 03/29/23 History triamcinolone acetonide 0.5 % 1 appl topical BID PRN Rash 11/18/22 03/31/23 Unknown History topical cream tramadol 50 mg tablet 50 mg PO TID PRN Pain, Moderate 02/02/23 03/31/23 03/30/23 History (Pain Scale 4-6 multivitamin 1 tab feeding tube DAILY 03/31/23 03/31/23 03/30/23 History Exam Airway Mallampati Class: IV TM Dist: <=3cm Neck ROM: Poor Heart: rrr Lungs: cta Assessment and Plan Assessment Anesthesia Assessment: Anesthesia Plan Discussed Final Anesthetic Review History of Problems with Anesthesia: Yes ASA Class: IV Final Preanesthetic Review: No Changes in Pt Med Stat, Meds/Allgs Chart Reviewed, Consent Obtained/Reviewed and Anes Risks/Benef Reviewed Patient Risk: High Procedure Risk: High Anesthetic Plan Anesthetic Plan: MAC: and Agree w/ Assess. and Plan Disposition: Standard PACU
[2023-04-29 13:39] VITALS: BP 145/66; PULSE 69; RESP 16; TEMP 36.3; O2SAT 99
--- NOTE | 2023-04-29 13:53 | MHC.SHP ---
Pre-Procedural Eval Section A Date of Service: 04/29/23 Section B Chief Complaint: Esophageal obstruction,anemia,dysphagia Relevant Family History (Specify if Yes): No Relevant Social History: None Present Medications: see Short Stay Collaborative assessment Medical History: Significant History (Anemia Aortic aneurysm Arthritis Back pain Cancer COPD (chronic obstructive pulmonary disease) COVID-19 Depression Difficulty swallowing Elevated cholesterol Esophageal stricture GERD (gastroesophageal reflux disease) History of chemotherapy History of epistaxis HTN (hypertension) Hx of radiation th) History of Previous Operations: Relevant previous surgery/procedure and date(s) (H/O colonoscopy History of back surgery History of esophagogastroduodenoscopy (EGD) History of nasal surgery History of transurethral resection of prostate) Allergies: Allergies Allergy/AdvReac Type Severity Reaction Status Date / Time Penicillins Allergy Intermediate Rash Verified 02/27/23 11:36 aspirin [ASA] AdvReac Intermediate GI BLEED, Verified 02/27/23 11:36 Headaches Review of Systems Sugical H&P ROS: Negative: Constitution, Cardiovascular, Respiratory, Neurological, Psychiatric, Hem-Onc, Allergic/Immunologic, Gastrointestinal, Genitourinary, Musculoskeletal, Integumentary, Endocrine and Eyes/Ears/Nose/Throat Exam Surgical H&P Exam: Normal: Heart, Normal: Lungs, Normal: Extremities, Normal: Abdomen, Normal: Skin and Normal: Neurological and Significant Findings: HEENT (small area of skin induration wioth small amount fo pus d/c near the left submand area) Exam Comment: dysarthria Plan Diagnosis/Plan: Unchanged I have reviewed the history and physical and performed a pertinent physical examination on my patient. No changes have occurred unless specified. Time Spent With Patient Time: Total time managing care of this patient today ____ minutes.
[2023-04-29] MEDS: Lactated Ringers 1,000 ML 100 ML IVCONT (14:01)
[2023-04-29 15:50] VITALS: BP 93/56; PULSE 88; RESP 16; TEMP 36.8; O2SAT 100
--- NOTE | 2023-04-29 15:52 | W.PM.OPN ---
Operative Note Operative Note Date of Service: 04/29/23 Narrative: Operative Information Procedure Description: EGD, Colonoscopy Indication: anemia, dysphagia Anesthesia: MAC FLEXIBLE TRANSORAL UPPER GASTROINTESTINAL ENDOSCOPY AND COLONOSCOPY PROCEDURE NOTE UPPER ENDOSCOPY Consent: Indications for the procedure and potential complications of bleeding, perforation, reaction to medications and missed diagnosis were discussed with the patient and informed consent was obtained. Instrument: ultraslim scope Monitoring: Vital signs and clinical assessment, continuous EKG monitoring, Pulse oximetry, Carbon Dioxide monitoring and blood pressure monitoring were done throughout the procedure. Procedure: The patient was placed in the left lateral decubitis position and pre-procedure medications were administered and a bite block was placed. The endoscope was inserted into the mouth and advanced under direct vision to the third part of duodenum. A careful inspection was made as the upper endoscope was withdrawn including a retroflexed examination of the proximal stomach; Findings and interventions are described below. Findings: Larynx:normal Esophagus: GE junction at 40? cm, diaphragm hiatus at 40 cm, salmon pink mucosa noted consistent with barretts esophagus about 4-5 cm in length Stricture noted at 25 cm and also tight upper esophageal sphincter. A 0.035 in biliary wire was placed and then a balloon directed over the strictured areas. under direct endoscopic visualization the ballon was dilated to max 8.5 mm, minor amount of oozing noted. Stomach: normal. Grade 2 flap valve on retroflexed examination of the cardia. Duodenum: Not reached Intervention: Balloon dilation with wire COLONOSCOPY Instrument: Olympus variable stiffness pediatric scope 190L Colonoscopy Monitoring: Vital signs and clinical assessment, continuous EKG monitoring, Pulse oximetry, Carbon Dioxide monitoring and blood pressure monitoring were done throughout the procedure. Colon withdrawal time was 10 minutes. Procedure: The patient was placed in the left lateral decubitis position and pre-procedure medications were administered. After a digital rectal examination of the ano-rectum, the video colonoscope was inserted into the rectum and advanced through the colon to the cecum/TI. The colonoscope was slowly withdrawn in a retrograde panoramic fashion and the colon mucosa was carefully examined including a retroflexed view of the rectum. Findings and interventions are described below. Procedure Difficulty:moderate Findings: Terminal Ileum-normal Cecum: few scattered small non bleeding AVm were noted which were treated with APC Ascending Colon: normal Transverse Colon -normal Descending Colon:normal Sigmoid Colon: normal Rectum: Retroflexion with small internal hemorrhoids, grade I Anorectum - normal Colon preparation: [place] Bowel Preparation Scale Right colon; 3 Transverse colon: 3 Left colon; 3 (0 = Unprepared colon segment with mucosa not seen due to solid stool that cannot be cleared. 1 = Portion of mucosa of the colon segment seen, but other areas of the colon segment not well seen due to staining, residual stool and/or opaque liquid. 2 = Minor amount of residual staining, small fragments of stool and/or opaque liquid, but mucosa of colon segment seen well. 3 = Entire mucosa of colon segment seen well with no residual staining, small fragments of stool or opaque liquid) Impression and Post Procedure Diagnosis: Endoscopy Findings: high grade esophageal stricture 2/2 prior radiation Colonoscopy Findings: AVM small internal hemorrhoids Plan: If further anemia, then agree with trial of SQ octreotide prn iron infusions will send ABx for his skin infection --bactrim suspension --can f/u with his PCP Above findings were reviewed with the patient and relevant handouts were provided if indicated.
[2023-04-29 15:55] VITALS: BP 102/56; PULSE 82; RESP 16; O2SAT 100
[2023-04-29 16:00] VITALS: BP 99/51; PULSE 80; RESP 16; O2SAT 98
[2023-04-29 16:05] VITALS: BP 104/56; PULSE 84; RESP 16; TEMP 36.8; O2SAT 98
[2023-04-29 16:20] VITALS: BP 128/68; PULSE 76; RESP 16; O2SAT 98
== END 2023-04-29 16:36 | disposition home or self-care (01) ==
PROVIDERS: PCP Internal Medicine; Visit Provider Internal Medicine Gastroenterology
PROC: (CPT 45382; principal; 2023-04-29 14:00)
PROC: 0DJD8ZZ Inspection of Lower Intestinal Tract, Via Natural or Artificial Opening Endoscopic (ICD-10-PCS; CPT 45378; 2023-04-29 14:00)
DX: D64.9 Anemia, unspecified (principal); K55.20 Angiodysplasia of colon without hemorrhage; K64.0 First degree hemorrhoids; K22.2 Esophageal obstruction; R13.10 Dysphagia, unspecified; K21.9 Gastro-esophageal reflux disease without esophagitis; K44.9 Diaphragmatic hernia without obstruction or gangrene; I10 Essential (primary) hypertension; E78.5 Hyperlipidemia, unspecified; J44.9 Chronic obstructive pulmonary disease, unspecified; I71.40 Abdominal aortic aneurysm, without rupture, unspecified; Z93.1 Gastrostomy status; Z87.891 Personal history of nicotine dependence; Z85.819 Personal history of malignant neoplasm of unspecified site of lip, oral cavity, and pharynx; Z92.21 Personal history of antineoplastic chemotherapy; Z92.3 Personal history of irradiation; Z88.0 Allergy status to penicillin; Z88.8 Allergy status to other drugs, medicaments and biological substances
CPT/HCPCS: 45382; 43249; C1726; C1769; J3301

== ENCOUNTER → 2023-04-29 12:29 | Outpatient (BNV) | payer OTHER, SELFPAY | PROVIDERS: PCP Internal Medicine; Visit Provider Internal Medicine Gastroenterology | DX: R13.10 Dysphagia, unspecified (principal); D64.9 Anemia, unspecified; K22.2 Esophageal obstruction; Q27.33 Arteriovenous malformation of digestive system vessel; K64.8 Other hemorrhoids | CPT/HCPCS: 43249; G0121 ==

== ENCOUNTER 2023-05-15 11:52 | Outpatient (REF) | payer OTHER, SELFPAY ==
[2023-05-15 13:52] LABS: MANUAL DIFF FLAG NO
[2023-05-15 14:48] LABS: Basophils Percent Auto 0.9 % (0-2); Eosinophils Absolute Auto 0.1 X10*3/uL (0.0-0.4); Eosinophils Percent Auto 1.7 % (0-4); Hematocrit 28.6 % (42.0-52.0); Hemoglobin 9.1 g/dl (14.0-18.0); Imm Gran Abs Auto 0.02 X10*3/uL (0.00-0.03); Imm Gran Pct Auto 0.4 % (0.0-0.4); Lymphocytes Absolute Auto 0.5 X10*3/uL (1.2-4.9); Lymphocytes Percent Auto 11.3 % (20-40); Mean Corpuscular HGB Conc 31.8 g/dl (31.0-36.0); Mean Corpuscular Volume 100.7 fL (80.0-98.0); Monocytes Absolute Auto 0.7 X10*3/uL (0.1-1.2); Monocytes Percent Auto 14.9 % (2-11); Neutrophils Absolute Auto 3.3 x10*3/uL (2.0-8.3); Neutrophils Percent Auto 70.8 % (45-73); Platelet Count 324 X10*3/uL (160-400); Red Blood Count 2.84 X10*6/uL (4.60-5.80); Red Cell Distribution Width 16.9 % (11.0-16.0); White Blood Count 4.7 X10*3/uL (4.8-10.8)
[2023-05-15 15:29] LABS: Alanine Aminotransferase 11 U/L (0-40); Alkaline Phosphatase 84 U/L (39-117); Anion Gap 11 (12-20); Aspartate Amino Transferase 26 U/L (5-37); Bilirubin Total 0.3 mg/dL (0.0-1.0); Blood Urea Nitrogen 10 mg/dL (9-16); Calcium 10.7 mg/dL (8.4-10.2); Carbon Dioxide 29 mmol/L (22-29); Chloride 101 mmol/L (96-108); Estimated Glomerular Filt Rate > 60; Glucose Random 73 mg/dL (60-115); Potassium 4.1 mmol/L (3.3-5.1); Sodium 137 mmol/L (135-145); Total Protein 7.9 g/dL (6.5-8.0)
[2023-05-15 15:47] LABS: Ferritin 1314 ng/mL (20-250); Vitamin D 25-OH Total 69.1 ng/mL (>30)
[2023-05-15 16:16] LABS: Folate > 20.0 ng/mL (> or = 4.0); Vitamin B12 1620 pg/mL (200-900)
[2023-05-19 12:34] LABS: Zinc 54 mcg/dL (60-130)
[2023-05-20 16:13] LABS: Vitamin B1 42 nmol/L (8-30)
[2023-05-21 02:03] LABS: Alpha-Tocopherol 12.9 mg/L (5.7-19.9); Beta-Gamma Tocopherol <1.0 mg/L (<=4.3)
[2023-05-21 14:23] LABS: Vitamin B6 28.5 ng/mL (2.1-21.7)
[2023-05-21 15:43] LABS: Vitamin A 56 mcg/dL (38-98)
[2023-05-22 18:02] LABS: Vitamin K1 195 pg/mL (130-1500)
[2023-05-23 00:03] LABS: Nicotinamide <20 ng/mL; Vit B3 - Nicotinic Acid <20 ng/mL; Vitamin B5 (Pantothenic Acid) 130 ng/mL (<275)
[2023-05-23 21:59] LABS: Vitamin C 1.2 mg/dL (0.2-2.1)
== END 2023-05-15 11:53 | disposition home or self-care (01) ==
LOC: HO.LAB 11:52
PROVIDERS: PCP Internal Medicine; Visit Provider Internal Medicine Gastroenterology
DX: E46 Unspecified protein-calorie malnutrition (principal); D63.8 Anemia in other chronic diseases classified elsewhere; K75.81 Nonalcoholic steatohepatitis (NASH)
CPT/HCPCS: 36415; 80053; 82180; 82306; 82607; 82728; 82746; 84207; 84425; 84446; 84590; 84591; 84597; 84630; 85025; 99212

== ENCOUNTER 2023-05-15 11:52 | Outpatient (AMB) | payer OTHER, SELFPAY ==
--- NOTE | 2023-05-15 11:57 | MHC.OFFVIS ---
Intake Vital Signs 05/15/23 12:03 Height 5 ft 7 in Weight 121 lb 4.068 oz BMI 19.0 BP 110/56 L Blood Pressure Location Lt brachial Position Sitting Pulse 78 Intake Visit Reasons: S/p egd/colon Intake Note: Lawrence presents in the office as a double follow up. CC: He states he is not having any concerns - just here for results. Allergies Penicillins Allergy (Intermediate, Verified 02/27/23 11:36) Rash naproxen Allergy (Mild, Verified 05/15/23 12:03) Unknown aspirin [ASA] Adverse Reaction (Intermediate, Verified 02/27/23 11:36) GI BLEED, Headaches HPI S/p egd/colon HPI Details 72 yr old m here for f/u RECAP: He has had few similar episodes in the past associated with anemia, and transfused as needed he as having nose bleeds he had EGD x [address] Kim with stretching Last EGD 12/08/22 with dilation to 11 mm, stopped due to resp issues he has g tube in place as well EGD/Colonoscopy--04/2023: Endoscopy Findings: high grade esophageal stricture 2/2 prior radiation Colonoscopy Findings: AVM--ablated small internal hemorrhoids INTERIM: He has an abscess with some d/c in the neck, f/u with MD in [place] he feels the recent dilation helped and he is able to eat mashed potato etc, going easy no more nose bleeds for several months no melena no fresh blood no hematuria no abdominal pain EXAM: GENERAL: The patient is thin, VITAL SIGNS:see workflow HEENT: Nonicteric sclerae, PERRLA, EOMI. Oropharynx clear. Moist mucous membranes. Conjunctivae appear well perfused. tight neck skin--small mouth CHEST: Chest wall is nontender. HEART: Regular rate and rhythm without murmurs. LUNGS: Clear to auscultation bilaterally. ABDOMEN: Soft, positive bowel sounds, nontender, no organomegaly.no flank tenderness--g tube noted SKIN: No rash, no excessive bruising, petechiae, or purpura. NEUROLOGIC: Cranial nerves II-XII intact without motor/sensory deficit. a/P: 1/ Hx of anemia, possible diet related, no overt GI bleeding, no hematuria--maybe due to vit C defc (he had perifollicular petechiae after EGD) PLAN: 1/ EGD prn 2/ check nutrients and cbc, prn Iron infusions 3/ f/u with his MD in [place] for his skin infection [facility] Medical History Uses feeding tube Pain around PEG tube site Normocytic anemia Lumbar radiculitis Post laminectomy syndrome History of epistaxis Esophageal stricture COVID-19 Anemia Pulmonary fibrosis Osteoarthritis of left shoulder Arthritis Back pain Hx of radiation therapy History of chemotherapy Cancer Difficulty swallowing Thyroid disease GERD (gastroesophageal reflux disease) Depression Pulmonary nodule COPD (chronic obstructive pulmonary disease) Aortic aneurysm Elevated cholesterol HTN (hypertension) Surgical History History of nasal surgery History of transurethral resection of prostate History of back surgery History of esophagogastroduodenoscopy (EGD) H/O colonoscopy Family History Father Brain cancer Mother CVD (cardiovascular disease) Maternal Aunt Diabetes Social History Household Members: Spouse and Children Household Members Other:: 2 Housing: Apartment Do you presently have visiting nurse or other home services: No Alcohol intake: never Patient Tobacco Use Status: Former Tobacco user Quit Date: 40 years ago Tobacco use type: Cigarette Cigarette Packs Per Day: 3 Years Smoked: 25 e-Cigarette/Vaping Use: Never Used Second Hand Smoke Exposure: No Advance Directives Date on File: 03/04/21 service: No Current occupational status: disabled Physical Exam Vital Signs: Last Vital Signs Pulse 78 05/15/23 12:03 BP 110/56 L 05/15/23 12:03 BMI result Body Mass Index 19.0 Assessment & Plan Assessment & Plan (1) Malnutrition: Code(s): E46 - Unspecified protein-calorie malnutrition (2) Anemia, chronic disease: Code(s): D63.8 - Anemia in other chronic diseases classified elsewhere Coding Level of Care Code Est Pt Level 3 (61882) Diagnoses Malnutrition E46 Anemia, chronic disease D63.8
[2023-05-15 12:03] VITALS: BP 110/56; PULSE 78; BMI 19.0
== END 2023-05-15 13:06 | disposition home or self-care (01) ==
PROVIDERS: PCP Internal Medicine; Visit Provider Internal Medicine Gastroenterology
DX: E46 Unspecified protein-calorie malnutrition (principal); D63.8 Anemia in other chronic diseases classified elsewhere
CPT/HCPCS: 99213

== ENCOUNTER 2023-06-05 10:17 | Outpatient (AMB) | payer OTHER, SELFPAY ==
--- NOTE | 2023-06-05 10:25 | MHC.OFFVIS ---
Intake Vital Signs 06/05/23 10:26 Height 5 ft 7 in Weight 127 lb BMI 19.9 BP 80/53 L Blood Pressure Location Rt brachial Position Sitting Respiration 14 Pulse 85 Pulse Source Pulse Oximeter Pulse Oximetry (%) 98 Oxygen Delivery Method Room Air Intake Visit Reasons: Lower back pain Allergies Penicillins Allergy (Intermediate, Verified 06/05/23 10:27) Rash naproxen Allergy (Mild, Verified 06/05/23 10:27) Unknown aspirin [ASA] Adverse Reaction (Intermediate, Verified 06/05/23 10:27) GI BLEED, Headaches Medication List - Last Reconciled 06/05/23 by Zeenat Snow LPN acetaminophen (M-PAP) 10 mL feeding tube TID PRN amlodipine 2.5 mg See Protocol G-tube DAILY ascorbic acid (vitamin C) (Vitamin C) 500 mg PO BID cane As directed cyanocobalamin (vitamin B-12) (Vitamin B-12) 1,000 mcg feeding tube DAILY duloxetine 1 cap PO DAILY duloxetine 1 cap PO DAILY ferrous sulfate 325 mg PO DAILY fluticasone propionate 110 mcg/actuation (Flovent HFA) 2 puffs inhalation BID PRN fluticasone propionate 50 mcg/actuation 2 sprays intranasal BID gabapentin 400 mg feeding tube TID levocetirizine 1 tab PO BEDTIME levothyroxine 75 mcg feeding tube DAILY@0600 multivitamin 1 tab feeding tube DAILY octreotide acetate 100 mcg subcut Q8H 30 days omeprazole 1 cap PO BID peg-electrolyte soln 420 gram mL PO timolol maleate 0.5% 1 drp ophthalmic (eye) QAM tizanidine 1 tab PO BEDTIME tramadol 50 mg PO TID PRN triamcinolone acetonide 0.5% 1 appl topical BID PRN umeclidinium-vilanterol 62.5-25 mcg/actuation (Anoro Ellipta) 1 inh inhalation DAILY HPI Lower back pain HPI Details 72-year-old male who presents today to the office for an evaluation of lower back pain. The patient reports back pain that radiates down to his knee. He received relief of 2-3 months Following the last round of facet injection and superior cluneal nerve block. He states that his pain has been worsening with work and movements. Past Procedures: 09/03/22: Lumbar Intra-articular Facet Injection, Left, L4/L5: 60-70% relief for 2-3 months. 05/21/22: Left Superior Cluneal Nerve/Left SIJ Injection ? 60% relief. 12/04/21: Left L4-L5 TFESI ? Good relief for only 5 days. [facility] Medical History Uses feeding tube Pain around PEG tube site Normocytic anemia Lumbar radiculitis Post laminectomy syndrome History of epistaxis Esophageal stricture COVID-19 Anemia Pulmonary fibrosis Osteoarthritis of left shoulder Arthritis Back pain Hx of radiation therapy History of chemotherapy Cancer Difficulty swallowing Thyroid disease GERD (gastroesophageal reflux disease) Depression Pulmonary nodule COPD (chronic obstructive pulmonary disease) Aortic aneurysm Elevated cholesterol HTN (hypertension) Surgical History History of nasal surgery History of transurethral resection of prostate History of back surgery History of esophagogastroduodenoscopy (EGD) H/O colonoscopy Family History Father Brain cancer Mother CVD (cardiovascular disease) Maternal Aunt Diabetes Social History Household Members: Spouse and Children Household Members Other:: 2 Housing: Apartment Do you presently have visiting nurse or other home services: No Alcohol intake: never Patient Tobacco Use Status: Former Tobacco user Quit Date: 40 years ago Tobacco use type: Cigarette Cigarette Packs Per Day: 3 Years Smoked: 25 e-Cigarette/Vaping Use: Never Used Second Hand Smoke Exposure: No Advance Directives Date on File: 03/04/21 service: No Current occupational status: disabled Review of Systems Const All systems reviewed & are unremarkable except as noted in HPI and below Physical Exam Vital Signs: Last Vital Signs Pulse 85 06/05/23 10:26 Resp 14 06/05/23 10:26 BP 80/53 L 06/05/23 10:26 Pulse Ox 98 06/05/23 10:26 Oxygen Delivery Method Room Air 06/05/23 10:26 BMI result Body Mass Index 19.9 General: Appears afebrile. Alert and oriented. Mood and affect appropriate. Follows and participates in conversation appropriately. Respiratory effort is unlabored. Able to transition from sit to stand unassisted. Ambulates with bilaterally normal heel strike and toe off. Pain overlying the left sacroiliac joint. Pain precipitated by lumbar spine motion. Results Reviewed Results Reviewed: No imaging is available for review. 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 Discussed the risks and benefits of the procedure with the patient in detail. All questions were answered. The patient is on board with the plan. Justification for interventional therapy: ? Patient with average pain > 6/10 ? Patient has exhausted conservative therapy ? Patient unable to tolerate physical therapy due to pain Scribed for Dr. Sims by Andrea Shipley, outside medical sales representative, on 06/05/2023. I, Dr. Sims, have personally reviewed and agree with the information entered by the scribe. Coding Level of Care Code Est Pt Level 3 (71819) Diagnoses Cluneal neuropathy G58.8 Sacroiliac joint dysfunction M53.3
[2023-06-05 10:26] VITALS: BP 80/53; PULSE 85; RESP 14; O2SAT 98; BMI 19.9
== END 2023-06-05 11:04 | disposition home or self-care (01) ==
PROVIDERS: PCP Internal Medicine; Visit Provider Internal Medicine
DX: G58.8 Other specified mononeuropathies (principal); M53.3 Sacrococcygeal disorders, not elsewhere classified
CPT/HCPCS: 99213

== ENCOUNTER → 2023-06-05 10:17 | Outpatient (BNVA) | payer OTHER, SELFPAY | PROVIDERS: PCP Internal Medicine; Visit Provider Internal Medicine | DX: G58.8 Other specified mononeuropathies (principal); M53.3 Sacrococcygeal disorders, not elsewhere classified | CPT/HCPCS: 99212 ==

== ENCOUNTER 2023-06-22 20:53 | Emergency (ER) | payer OTHER, SELFPAY ==
--- NOTE | ~2023-06-22 | XR_ITS ---
EXAMINATION: XR CHEST CLINICAL INFORMATION: Cough. COMPARISON: Chest x-ray February 02, 2023 TECHNIQUE: Frontal portable view of the chest was obtained. 9:32 PM FINDINGS: Interval resolution of bilateral consolidated airspace disease compared with prior chest x-ray February 02, 2023. There are coarse interstitial patchy nodular airspace opacities in lung bilateral. These are similar to prior studies including chest x-ray November 25, [address] chest November 18, 2022. No pleural effusion. Heart size is normal. Cardiac mediastinal contours are normal. There is no pneumothorax. XR/XR chest 1V IMPRESSION: Interval resolution of bilateral airspace disease compared with prior chest x-ray February 02, 2023. No change of the coarse interstitial and patchy nodular airspace opacities in lungs bilaterally.
[2023-06-22 20:54] VITALS: BP 140/76; PULSE 79; PULSE 85; RESP 17; TEMP 36.8; O2SAT 97; O2SAT 98; BMI 20.2
--- NOTE | 2023-06-22 20:56 | ED.NAVMDI ---
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 No abdominal pain but has chest pain when he coughs or breathes in. He denies fevers, black or bloody stools, fevers, travel or sick contacts. He called 911 because he feels weak and dizzy when he stands and overall unwell. MD elicited complaint: nausea, vomiting and diarrhea Onset (ago): hour(s) (14) Description of vomiting: watery Description of diarrhea: watery Associated nausea: Yes Associated abdominal pain: No Location of pain: chest Pain consistency: intermittent Severity: moderate Quality: stabbing Exacerbating factors: other (coughing or deep breaths) Relieving factors: none Context: other (denies any NSAID use) Associated symptoms: myalgias, cough, loss of appetite, malaise, nausea/vomiting and weakness Related Data Home Medications Medication Instructions Recorded Confirmed umeclidinium 62.5 mcg-vilanterol 1 inh inhalation DAILY 06/21/20 06/05/23 25 mcg/actuation powdr for inhalation (Anoro Ellipta) acetaminophen 160 mg/5 mL oral 10 ml feeding tube TID PRN pain 11/18/22 06/05/23 liquid (M-PAP) duloxetine 30 mg capsule,delayed 1 cap PO DAILY 11/18/22 06/05/23 release duloxetine 60 mg capsule,delayed 1 cap PO DAILY 11/18/22 06/05/23 release fluticasone propionate 110 2 puff inhalation BID PRN 11/18/22 06/05/23 mcg/actuation HFA aerosol inhaler Shortness Of Breath Or Wheezing (Flovent HFA) fluticasone propionate 50 2 spray intranasal BID 11/18/22 06/05/23 mcg/actuation nasal spray,suspension levocetirizine 5 mg tablet 1 tab PO BEDTIME 11/18/22 06/05/23 tizanidine 4 mg tablet 1 tab PO BEDTIME 11/18/22 06/05/23 triamcinolone acetonide 0.5 % 1 appl topical BID PRN Rash 11/18/22 06/05/23 topical cream tramadol 50 mg tablet 50 mg PO TID PRN Pain, Moderate 02/02/23 06/05/23 (Pain Scale 4-6 multivitamin 1 tab feeding tube DAILY 03/31/23 06/05/23 peg-electrolyte solution 420 gram ml PO 05/06/23 06/05/23 oral solution timolol maleate 0.5 % eye drops 1 drp ophthalmic (eye) QAM 05/06/23 06/05/23 albuterol sulfate 90 mcg/actuation inhalation 06/08/23 aerosol inhaler Previous Rx's Medication Instructions Recorded cyanocobalamin (vitamin B-12) 1,000 mcg feeding tube DAILY #30 07/18/22 1,000 mcg tablet (Vitamin B-12) tabs gabapentin 400 mg capsule 400 mg feeding tube TID #30 caps 07/18/22 levothyroxine 75 mcg tablet 75 mcg feeding tube DAILY@0600 #30 07/18/22 tabs cane #1 ea 01/13/23 amlodipine 2.5 mg tablet 2.5 mg G-tube DAILY #30 tabs 04/03/23 octreotide acetate 100 mcg/mL 100 mcg subcut Q8H 30 days #90 mL 04/03/23 injection solution omeprazole 40 mg capsule,delayed 1 cap PO BID #60 caps 04/03/23 release ascorbic acid (vitamin C) 500 mg 500 mg PO BID #120 tabs 05/22/23 chewable tablet (Vitamin C) ferrous sulfate 325 mg (65 mg 325 mg PO DAILY #90 tabs 05/22/23 iron) tablet Allergies Allergy/AdvReac Type Severity Reaction Status Date / Time Penicillins Allergy Intermediate Rash Verified 06/05/23 10:27 naproxen Allergy Mild Unknown Verified 06/05/23 10:27 aspirin [ASA] AdvReac Intermediate GI BLEED, Verified 06/05/23 10:27 Headaches Review of Systems Review of Systems: Constitutional : No Weight loss, No Fever, No Chills, pos fatigue, pos malaise ENT/Mouth : No sore throat, No Rhinorrhea Eyes: No Swelling, No Redness Cardiovascular : pos Chest Pain, No SOB, No Edema Respiratory : pos Cough, No Sputum, No Wheezing Gastrointestinal : Positive Nausea, Positive Vomiting, positive Diarrhea, no abdominal Pain, No Hematochezia, No Melena Genitourinary : No Dysuria, No Urinary Frequency, No Hematuria, No Urgency Musculoskeletal : No joint pain, No Myalgias, No Joint Swelling Skin : No Skin Lesions, No rash Neuro : No Weakness, No Numbness, No Dizziness, No Headache Psych : No Anxiety/Panic, No Depression All other systems reviewed and are negative. Gastrointestinal: Gastrointestinal: Reports nausea PMFSH Past Medical History Attestation statement: The following information was validated with the patient. Source: old records reviewed Medical History Uses feeding tube Pain around PEG tube site Normocytic anemia Lumbar radiculitis Post laminectomy syndrome History of epistaxis Esophageal stricture COVID-19 Anemia Pulmonary fibrosis Osteoarthritis of left shoulder Arthritis Back pain Hx of radiation therapy History of chemotherapy Cancer Difficulty swallowing Thyroid disease GERD (gastroesophageal reflux disease) Depression Pulmonary nodule COPD (chronic obstructive pulmonary disease) Aortic aneurysm Elevated cholesterol HTN (hypertension) Surgical History History of nasal surgery History of transurethral resection of prostate History of back surgery History of esophagogastroduodenoscopy (EGD) H/O colonoscopy Family History Family History Father Brain cancer Mother CVD (cardiovascular disease) Maternal Aunt Diabetes Social History Social History Household Members: Spouse and Children Household Members Other:: 2 Housing: Apartment Do you presently have visiting nurse or other home services: No Alcohol intake: never Patient Tobacco Use Status: Former Tobacco user Quit Date: 40 years ago Tobacco use type: Cigarette Cigarette Packs Per Day: 3 Years Smoked: 25 Smoked in Last 30 Days: No e-Cigarette/Vaping Use: Never Used Second Hand Smoke Exposure: No Use of substances other than those prescribed or required for medical reasons: No Advance Directives: Yes Advance Directives on File: Yes Advance Directives Date on File: 03/04/21 service: No Current occupational status: disabled Physical Exam Vital Signs: Vital Signs: Last Vital Signs Temp 98.3 F 06/22/23 20:54 Pulse 85 06/22/23 21:02 Resp 22 H 06/22/23 21:02 BP 117/58 L 06/22/23 21:02 Pulse Ox 96 06/22/23 21:02 O2 Del Method Room Air 06/22/23 21:02 BMI result Body Mass Index 20.2 Appearance: Alert. Oriented X3. No acute distress. Frail and thin appearing Eyes: Pupils equal, round and reactive to light. ENT: Pharynx normal. Neck: Normal inspection. Neck supple. CVS: Normal heart rate and rhythm. Pulses normal. Respiratory: No respiratory distress. Breath sounds diminished R base Abdomen: Soft and non-tender. G tube site is c/d/i Skin: Skin warm and dry. Normal skin color. Normal skin turgor. Extremities: No lower extremity edema. Neuro: Oriented X 3. No motor deficit. No sensory deficit. Medications Administered Discontinued Medications Generic Name Dose Route Start Last Admin Trade Name Freq PRN Reason Stop Dose Admin Sodium Chloride 1,000 mls @ 999 mls/hr 06/22/23 21:15 06/22/23 23:10 Ns IVCONT 06/22/23 22:15 Infused .Q1H1M FRANCK Infusion Ondansetron HCl 4 mg 06/22/23 21:03 06/22/23 21:23 Ondansetron Hcl 4 Mg/2 Ml Vial IVPUSH 06/22/23 21:04 4 mg ONCE ONE Administration Medical Decision Making Medical Decision Making MDM Narrative: 72 yo male with PMH of pneumonia, anemia, CAD, orthostatic hypotension, back pain, emphysema, throat cancer s/p radiation 20 years ago, HTN, GERD, esophageal strictures, depression, COPD, GI bleed from 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 He has pleuritic chest pain and cough but no fevers or change in sputum production. He feels weak and dizzy. At this time denies GIB symptoms. Will obtain basic labs, EKG, troponin and ddimer. hydrate and zofran - his abdomen is benign at this time he has no pain or distention so intra-abdominal pathology is less likely. Differential Diagnosis Differential Diagnoses: The differential diagnosis associated with the presentation includes VTE, pleurisy, viral syndrome Admission/Observation Consideration of admission/observation: Escalation of care including admission/observation considered tolerating PO, labs and VS stable improved with IVF no diarrhea or vomiting here Lab Data MDM Lab Attestation statement: I reviewed the patient's lab results. 06/22/23 21:12 06/22/23 21:12 Labs: Lab Results 06/22/23 06/23/23 Range/Units 21:12 00:13 WBC 4.5 L (4.8-10.8) X10*3/uL RBC 2.99 L (4.60-5.80) X10*6/uL Hgb 9.9 L (14.0-18.0) g/dl Hct 30.2 L (42.0-52.0) % MCV 101.0 H (80.0-98.0) fL MCH 33.1 H (27.0-33.0) pg MCHC 32.8 (31.0-36.0) g/dl RDW 15.2 (11.0-16.0) % Plt Count 262 (160-400) X10*3/uL MPV 9.5 (9.4-12.4) fL Immature Gran % (Auto) 0.4 (0.0-0.4) % Neut % (Auto) 61.5 (45-73) % Lymph % (Auto) 13.7 L (20-40) % [place] % (Auto) 22.0 H (2-11) % Eos % (Auto) 2.0 (0-4) % Baso % (Auto) 0.4 (0-2) % Lymph # (Auto) 0.6 L (1.2-4.9) X10*3/uL [place] # (Auto) 1.0 (0.1-1.2) X10*3/uL Eos # (Auto) 0.1 (0.0-0.4) X10*3/uL Baso # (Auto) 0.0 (0.0-0.2) X10*3/uL Abs Immat Gran (auto) 0.02 (0.00-0.03) X10*3/uL Absolute Neuts (auto) 2.8 (2.0-8.3) x10*3/uL Absolute Nucleated RBC 0.000 (0.0-0.012) X10*3/uL Nucleated RBC % (auto) 0.0 (0.0-0.2) /100WBC Smear Tech's Comments VERIFIED D-Dimer High Sensitivty 164 NG/ML Sodium 137 (135-145) mmol/L Potassium 3.7 (3.3-5.1) mmol/L Chloride 101 (96-108) mmol/L Carbon Dioxide 26 (22-29) mmol/L Anion Gap 14 (12-20) BUN 21 H (9-16) mg/dL Creatinine 0.79 (0.5-1.4) mg/dL Estim Creat Clear Calc 69.9 Estimated GFR > 60 Random Glucose 88 (60-115) mg/dL Lactic Acid 1.3 (0.5-2.0) mmol/L Calcium 9.9 D (8.4-10.2) mg/dL Magnesium 2.5 (1.6-2.6) mg/dL Total Bilirubin 0.2 (0.0-1.0) mg/dL Direct Bilirubin < 0.2 (0.0-0.5) mg/dL AST 23 (5-37) U/L ALT 11 (0-40) U/L Alkaline Phosphatase 76 (39-117) U/L Troponin I High Sens < 2.7 (<3.5-35.0) ng/L Total Protein 7.8 (6.5-8.0) g/dL Albumin 3.9 (3.5-5.0) g/dL Lipase 15 (8-78) U/L Urine Color Yellow Urine Appearance Clear Urine pH 6.5 (5.0-9.0) Ur Specific [place] 1.015 (1.005-1.025) Urine Protein Negative (Neg-Trace) mg/dL Urine Glucose (UA) Negative (Negative) mg/dL Urine Ketones Negative (Negative) mg/dL Urine Blood Negative (Negative) Urine Nitrite Negative (Negative) Ur Leukocyte Esterase Negative (Negative) COVID-19 (VIC) Negative (Negative) COVID-19 Clin Com See Note Independent Interpretation I performed an independent interpretation of an: EKG and Plain X-Ray Interpretation: Rate: 76 Rhythm: NSR [place]: normal Normal P waves. Normal [place]. Normal QRS complex. ST T wave : normal no NADIA qTC: normal prior studies: no acute ischemia The study has been interpreted contemporaneously by me. . Radiology Impression Discussion of test interpretation with radiology: I have reviewed the radiologist's reading. Independent Historian Clinical information obtained from an independent historian. History obtained from or confirmed by: EMS External Record Review External record reviewed: Inpatient record Discharge Plan Discharge Clinical Impression: Weakness, Acute viral syndrome Patient Disposition: Home, Self-Care Instructions: Weakness (ED), Viral Syndrome (ED) Additional Instructions: labs, urine heart tests and chest xray no acute findings. no COVID. you were hydrated in the ED. please follow up with your doctor this week. return for worsening symptoms or fevers, pain, fainting, increased dizziness or any other concerns. Prescriptions: No Action Anoro Ellipta 62.5-25 mcg/actuation Blister With Device 1 inh INHALATION DAILY gabapentin 400 mg capsule 400 mg feeding tube TID Qty: 30 0RF cyanocobalamin (vitamin B-12) [Vitamin B-12] 1,000 mcg tablet 1,000 mcg feeding tube DAILY Qty: 30 0RF levothyroxine 75 mcg tablet 75 mcg feeding tube DAILY@0600 Qty: 30 0RF acetaminophen [M-PAP] 160 mg/5 mL liquid 10 ml feeding tube TID PRN (Reason: pain) triamcinolone acetonide 0.5 % cream 1 appl topical BID PRN (Reason: Rash) tizanidine 4 mg tablet 1 tab PO BEDTIME fluticasone propionate [Flovent HFA] 110 mcg/actuation HFA aerosol inhaler 2 puff INHALATION BID PRN (Reason: Shortness Of Breath Or Wheezing) duloxetine 30 mg capsule,delayed release(DR/EC) 1 cap PO DAILY Rx Instructions: TAKE WITH 60MG duloxetine 60 mg capsule,delayed release(DR/EC) 1 cap PO DAILY Rx Instructions: TAKE WITH 30MG levocetirizine 5 mg tablet 1 tab PO BEDTIME fluticasone propionate 50 mcg/actuation spray,suspension 2 spray intranasal BID tramadol 50 mg tablet 50 mg PO TID PRN (Reason: Pain, Moderate (Pain Scale 4-6) multivitamin Tablet 1 tab feeding tube DAILY octreotide acetate 100 mcg/mL Solution 100 mcg subcut Q8H 30 Days Qty: 90 0RF amlodipine 2.5 mg Tablet 2.5 mg G-tube DAILY Qty: 30 0RF Protocol: Hold for SBP< HOLD for SBP < : 90 omeprazole 40 mg capsule,delayed release(DR/EC) 1 cap PO BID Qty: 60 0RF ferrous sulfate 325 mg (65 mg iron) Tablet 325 mg PO DAILY Qty: 90 4RF ascorbic acid (vitamin C) [Vitamin C] 500 mg Tablet,Chewable 500 mg PO BID Qty: 120 6RF (DME) cane Device See Rx Instructions .Route Qty: 1 0RF Rx Instructions: As directed timolol maleate 0.5 % drops 1 drp ophthalmic (eye) QAM peg-electrolyte soln 420 gram recon soln PO albuterol sulfate 90 mcg/actuation HFA aerosol inhaler inhalation
[2023-06-22 21:02] VITALS: BP 117/58; PULSE 85; RESP 22; O2SAT 96
--- NOTE | 2023-06-22 21:04 | ECG_ITS ---
Test Reason : CHEST PAIN Blood Pressure : / mmHG Vent. Rate : 076 BPM Atrial Rate : 076 BPM P-R Int : 126 ms QRS Dur : 080 ms QT Int : 394 ms P-R-T Axes : 065 050 067 degrees QTc Int : 443 ms Normal sinus rhythm ST elevation in Anterior leads Abnormal ECG When compared with ECG of 30-MAR-2023 21:38, Heart rate has decreased ST more elevated in Anterior leads Referred By: Leila Fowler Electronically Signed By:MINA DEAN MD
[2023-06-22] MEDS: ondansetron HCL 4 MG/2 ML VIAL IVPUSH (21:23)
[2023-06-22] MEDS: 0.9 % Sodium Chloride 1,000 ML 999 ML IVCONT (21:24)
[2023-06-22 21:40] LABS: D Dimer High Sensitivity 164 NG/ML
[2023-06-22 21:42] LABS: COVID-19 Test Negative (Negative); IDNOW Serial# BCCEAD1C; Lactic Acid 1.3 mmol/L (0.5-2.0)
[2023-06-22 21:43] LABS: Basophils Percent Auto 0.4 % (0-2); Eosinophils Absolute Auto 0.1 X10*3/uL (0.0-0.4); Hematocrit 30.2 % (42.0-52.0); Hemoglobin 9.9 g/dl (14.0-18.0); Imm Gran Abs Auto 0.02 X10*3/uL (0.00-0.03); Imm Gran Pct Auto 0.4 % (0.0-0.4); Lymphocytes Absolute Auto 0.6 X10*3/uL (1.2-4.9); Lymphocytes Percent Auto 13.7 % (20-40); MANUAL DIFF FLAG SCAN; Mean Corpuscular HGB Conc 32.8 g/dl (31.0-36.0); Mean Corpuscular Hemoglobin 33.1 pg (27.0-33.0); Mean Platelet Volume 9.5 fL (9.4-12.4); Neutrophils Absolute Auto 2.8 x10*3/uL (2.0-8.3); Neutrophils Percent Auto 61.5 % (45-73); PLT CLUMP 1; Red Blood Count 2.99 X10*6/uL (4.60-5.80); Red Cell Distribution Width 15.2 % (11.0-16.0); SCAN SMEAR FLAG 1
[2023-06-22 21:47] LABS: Alanine Aminotransferase 11 U/L (0-40); Albumin Level 3.9 g/dL (3.5-5.0); Alkaline Phosphatase 76 U/L (39-117); Anion Gap 14 (12-20); Aspartate Amino Transferase 23 U/L (5-37); Bilirubin Direct < 0.2 mg/dL (0.0-0.5); Bilirubin Total 0.2 mg/dL (0.0-1.0); Blood Urea Nitrogen 21 mg/dL (9-16); Calcium 9.9 mg/dL (8.4-10.2); Carbon Dioxide 26 mmol/L (22-29); Chloride 101 mmol/L (96-108); Creatinine Clr Calc Pharmacy 69.9; Estimated Glomerular Filt Rate > 60; Glucose Random 88 mg/dL (60-115); Lipase 15 U/L (8-78); Magnesium 2.5 mg/dL (1.6-2.6); Potassium 3.7 mmol/L (3.3-5.1); Sodium 137 mmol/L (135-145); Total Protein 7.8 g/dL (6.5-8.0)
[2023-06-22 21:51] LABS: Troponin-I High Sensitivity < 2.7 ng/L (<3.5-35.0)
[2023-06-22 22:04] LABS: White Blood Count 4.5 X10*3/uL (4.8-10.8)
[2023-06-22 22:05] LABS: Platelet Count 262 X10*3/uL (160-400)
[2023-06-22 22:06] LABS: SLIDE REVIEW VERIFIED
--- NOTE | 2023-06-23 00:15 | PC.NURSE ---
po challenge well tolerated. provider [email or web address]
[2023-06-23 00:21] LABS: Appearance Urine Clear; Color Urine Yellow; Glucose Urine UA Negative (Negative); Leukocyte Esterase Urine Negative (Negative); Nitrite Urine Negative (Negative); PH 6.5 (5.0-9.0); Specific Gravity - Urine 1.015 (1.005-1.025); Urine Blood Negative (Negative); Urine Ketones Negative (Negative); Urine Protein Negative (Neg-Trace)
[2023-06-23 00:39] VITALS: BP 157/79; PULSE 80; RESP 14; TEMP 36.7; O2SAT 97
== END 2023-06-23 00:44 | disposition home or self-care (01) ==
PROVIDERS: Emergency Provider Emergency Medicine; PCP Internal Medicine
DX: B34.9 Viral infection, unspecified (principal); R11.2 Nausea with vomiting, unspecified; R07.89 Other chest pain; R19.7 Diarrhea, unspecified; M54.50 Low back pain, unspecified; I25.10 Atherosclerotic heart disease of native coronary artery without angina pectoris; M79.10 Myalgia, unspecified site; R05.9 Cough, unspecified; Z11.52 Encounter for screening for COVID-19; Z20.822 Contact with and (suspected) exposure to COVID-19; Z87.891 Personal history of nicotine dependence; Z79.899 Other long term (current) drug therapy
CPT/HCPCS: 36415; 71045; 80048; 80076; 81003; 83605; 83690; 83735; 84484; 85025; 85379; 87040; 87635; 93005; 96361; 96374; 99284; 99285; J2405

== ENCOUNTER 2023-07-06 15:21 | Outpatient (AMB) | payer OTHER, SELFPAY ==
[2023-07-06 15:48] VITALS: RESP 12
--- NOTE | 2023-07-06 15:48 | A.OFFVIS_ITS ---
Intake Vital Signs 07/06/23 15:48 Height 5 ft 7 in Weight 128 lb BMI 20.0 Blood Pressure Location Rt brachial Position Sitting Respiration 12 Pulse Source Pulse Oximeter Intake Visit Reasons: Jhon Dx cluneal NB /Lvm Allergies Penicillins Allergy (Intermediate, Verified 06/05/23 10:27) Rash naproxen Allergy (Mild, Verified 06/05/23 10:27) Unknown aspirin [ASA] Adverse Reaction (Intermediate, Verified 06/05/23 10:27) GI BLEED, Headaches HPI Jhon Dx cluneal NB /Lvm HPI Details 72-year-old male who presents today to t he office for a left diagnostic cluneal nerve block. Denies any recent cough, cold, infection, fever or other significant changes in medical history since last office visit. Past Procedures: 09/03/22: Lumbar Intra-articular Facet I njection, Left, L4/L5: 60-70% relief for 2-3 months. 05/21/22: Left Superior Cluneal Nerve/Lef t SIJ Injection ? 60% relief. 12/04/21: Left L4-L5 TFESI ? Good relief for only 5 days. [facility] Medical History Uses feeding tube Pain around PEG tube site Normocytic anemia Lumbar radiculitis Post laminectomy syndrome History of epistaxis Esophageal stricture COVID-19 Anemia Pulmonary fibrosis Osteoarthritis of left shoulder Arthritis Back pain Hx of radiation therapy History of chemotherapy Cancer Difficulty swallowing Thyroid disease GERD (gastroesophageal reflux disease) Depression Pulmonary nodule COPD (chronic obstructive pulmonary disease) Aortic aneurysm Elevated cholesterol HTN (hypertension) Surgical History History of nasal surgery History of transurethral resection of prostate History of back surgery History of esophagogastroduodenoscopy (EGD) H/O colonoscopy Family History Father Brain cancer Mother CVD (cardiovascular disease) Maternal Aunt Diabetes Social History Household Members: Spouse and Children Household Members Other:: 2 Housing: Apartment Do you presently have visiting nurse or other home services: No Alcohol intake: never Patient Tobacco Use Status: Former Tobacco user Quit Date: 40 years ago Tobacco use type: Cigarette Cigarette Packs Per Day: 3 Years Smoked: 25 e-Cigarette/Vaping Use: Never Used Second Hand Smoke Exposure: No Advance Directives Date on File: 03/04/21 service: No Current occupational status: disabled Review of Systems Const All systems reviewed & are unremarkable except as noted in HPI and below Physical Exam Vital Signs: Last Vital Signs Resp 12 07/06/23 15:48 BMI result Body Mass Index 20.0 General: Appears afebrile. Alert and oriented. Mood and affect appropriate. Follows and participates in conversation appropriately. Respiratory effort is unlabored. Able to transition from sit to stand unassisted. Ambulates with bilaterally normal heel strike and toe off. Office Procedures Nerve Block Details: Left Superior cluneal nerve block, ultrasound guided. After obtaining written consent, pre-procedure blood pressure and heart rate wer e stable and recorded in the nursing record. The patient was placed prone on the table. The area overlying the peripheral nerves was widely prepped with chloraprep, allowed to dry. Using ultrasound, the appropriate landmarks were identified. A 1.5 in 25 gauge needle was advanced under fluoroscopic guidance to the appropriate landmarks at three sites along the iliac crest. Aspiration was negative for heme. 1 cc of ropivacaine 0.5% mixed with 10 mg Kenalog was injected around each targeted area. The needles were removed, skin cleansed and a sterile bandage was applied. The patient tolerated the procedure well and no complications were encountered. Following the procedure the patient's vital signs were stable. The patient was discharged home in good condition with post-procedural instructions. Time Out: Immediately prior to the procedure, the following was verbally confirmed that there is a signed consent form and that the correct patient, planned procedure, site and side are consistent with documentation and that necessary equipment and/or blood products are available prior to the start of the case. Complications: none EBL: <5 cc Note: An ultrasound image of the injection was taken and stored in the permanent record. Procedure code (CPT) selection complete Results Reviewed Results Reviewed: No imaging is available for review. 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 Patient tolerated procedure well and was discharged home in stable condition with discharge instructions. All questions were answered. We will follow-up in two weeks via telephone or in clinic to assess response to therapy. A follow-up appointment was made during today's visit. Scribed for Dr. Sims by Andrea Shipley, director of medical review, on 07/06/2023. I, Dr. Sims, have personally reviewed and agree with the information entered by the scribe. 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
== END 2023-07-06 16:08 | disposition home or self-care (01) ==
PROVIDERS: PCP Internal Medicine; Visit Provider Internal Medicine
DX: G58.8 Other specified mononeuropathies (principal)
CPT/HCPCS: 64450

== ENCOUNTER → 2023-07-06 15:21 | Outpatient (BNVA) | payer OTHER, SELFPAY | PROVIDERS: PCP Internal Medicine; Visit Provider Internal Medicine | DX: G58.8 Other specified mononeuropathies (principal) | CPT/HCPCS: 64450 ==

== ENCOUNTER 2023-07-09 10:19 | Outpatient (AMB) | payer OTHER, SELFPAY ==
--- NOTE | 2023-07-09 10:21 | A.OFFVIS_ITS ---
Intake Vital Signs 07/09/23 10:22 Height 5 ft 7 in Weight 127 lb 13.89 oz BMI 20.0 BP 92/52 L Blood Pressure Location Rt brachial Position Sitting Pulse 81 Pulse Source Pulse Oximeter Temp 97.1 F Temp Source Skin Pulse Oximetry (%) 95 Oxygen Delivery Method Room Air Intake Visit Reasons: joint pain Intake Note: Patient presents today to follow up on joint pain. Would like cortisone injection on knee. Legal Billing Analyst Required: No Accompanied by: Self / Same As Patient Allergies Penicillins Allergy (Intermediate, Verified 07/09/23 10:25) Rash naproxen Allergy (Mild, Verified 07/09/23 10:25) Unknown aspirin [ASA] Adverse Reaction (Intermediate, Verified 07/09/23 10:25) GI BLEED, Headaches HPI HPI Comments History of Present Illness Details Lawrence, 72yoM, returns with complaints of pain in the left knee. He has known osteoarthritis in multiple joints and has been getting corticosteroid injections over the past year. He thinks it is helpful for a number of months. He notes more pain when he walks up or down stairs. There is occasional swelling. 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 He is getting some intravenous iron because he was bleeding from the GI tract at some point. He takes Acetaminophen and Gabapentin through the G-tube. These are somewhat helpful. He also gets back pain and left shoulder pain with more activities. He also complains of leg weakness and nerve pain that extends down his leg. Patient does get cluneal nerve injections [facility] Medical History Uses feeding tube Pain around PEG tube site Normocytic anemia Lumbar radiculitis Post laminectomy syndrome History of epistaxis Esophageal stricture COVID-19 Anemia Pulmonary fibrosis Osteoarthritis of left shoulder Arthritis Back pain Hx of radiation therapy History of chemotherapy Cancer Difficulty swallowing Thyroid disease GERD (gastroesophageal reflux disease) Depression Pulmonary nodule COPD (chronic obstructive pulmonary disease) Aortic aneurysm Elevated cholesterol HTN (hypertension) Surgical History History of nasal surgery History of transurethral resection of prostate History of back surgery History of esophagogastroduodenoscopy (EGD) H/O colonoscopy Family History Father Brain cancer Mother CVD (cardiovascular disease) Maternal Aunt Diabetes Social History Household Members: Spouse and Children Household Members Other:: 2 Housing: Apartment Do you presently have visiting nurse or other home services: No Alcohol intake: never Patient Tobacco Use Status: Former Tobacco user Quit Date: 40 years ago Tobacco use type: Cigarette Cigarette Packs Per Day: 3 Years Smoked: 25 e-Cigarette/Vaping Use: Never Used Second Hand Smoke Exposure: No Advance Directives Date on File: 03/04/21 service: No Current occupational status: disabled Review of Systems Const Details: Some improvement and weight with the PEG tube. Negative for appetite change, fever, chills, malaise and fatigue Card Details: Negative chest pain, edema and syncope Resp Details: Negative for SOB, cough and wheezing GI Details: Negative indigestion/heartburn, nausea, abdominal pain, bowel changes, diarrhea, constipation and bloody stool. David/Lymph Details: Negative for excessive bruising or bleeding. Physical Exam Vital Signs: Last Vital Signs Temp 97.1 F 07/09/23 10:22 Pulse 81 07/09/23 10:22 BP 92/52 L 07/09/23 10:22 Pulse Ox 95 07/09/23 10:22 Oxygen Delivery Method Room Air 07/09/23 10:22 BMI result Body Mass Index 20.0 APPEARANCE: Patient in no acute distress EXTREMITIES: No edema, no calf tenderness, normal peripheral pulses. JOINT EXAM: Hands:.? ? There is pain-free range of motion in the fingers but he has some slight bony thickening at the PIP and the IP joints.? There is no soft tissue swelling, redness, warmth or triggering.? There is no thenar atrophy or sensory loss. Wrists:.?? Mild pain with flexion or extension at 60 degrees.? There is some slight dorsal and volar tenderness without swelling.? No redness or warmth. Elbows:.? Right: Normal pain-free range of motion without tenderness, swelling, increased warmth or erythema.? Left: Mild pain with attempts at full extension.? He lacks about 10 degrees of full extension at the elbow.? There is some slight tenderness over the ? Lateral epicondyle where he has some evidence of previous surgical treatment for tendinitis.? Over the joint space there is no tenderness or swelling. Shoulders:.??Left: Mild pain with abduction at 135 degrees. Passive motion is limited at about 150 degrees of abduction and 20 degrees of rotation. Slight anterior tenderness without abductor weakness, adenopathy or swelling. Right: Full range of motion with mild discomfort at the extremes of motion.? There is some mild anterior and trapezial tenderness without abductor weakness or adenopathy.. Hips:.?? Right:? There is some right lumbar pain with extremes of internal and external rotation but no groin pain with motion.? Left:? At the extremes of internal external rotation he has some lateral and buttock pain.? No groin pain with motion.. Hip bursa:.?? Mild bilateral trochanteric tenderness. Knees:.??Left: Slight pain with extremes of flexion or extension. There is mild medial tenderness and mild patellofemoral crepitus but no effusion, redness, popliteal tenderness or warmth. Right: Normal pain-free range of motion with mild patellofemoral crepitus and slight medial tenderness without effusion, soft tissue swelling, increased warmth or erythema.? Ankles:.? Normal pain-free range of motion with mild tenderness but no swelling, increased warmth or erythema. Feet:.? Normal pain-free range of motion with slight 1st MTP bony enlargement.? There is some tenderness over the 1st MTP joint in the insteps with some mild bony enlargement in the instep.? No soft tissue swelling, increased warmth or erythema. Tender points:?? mild tenderness to digital palpation at the trapezius, second rib, lateral epicondyle, greater trochanter area bilaterally. ? Office Procedures Joint Injection/Drain Joint Injection/Drain Primary Site: left knee Prep: site was prepped using aseptic technique and injection warnings given Injected: 80 mg of, Kenalog, with 1 mL of, 1% plain lidocaine and in the joint Approach Used: anterolateral Procedure: The patient tolerated the procedure well and there was some relief with the local anesthesia Coding Details: Left Knee injected - Large joint Procedure code (CPT) selection complete Assessment & Plan Assessment & Plan (1) Primary osteoarthritis of left knee: Code(s): M17.12 - Unilateral primary osteoarthritis, left knee (2) Cluneal neuropathy: Code(s): G58.8 - Other specified mononeuropathies Plan Lawrence returns today for cortisone injection to left knee. He did get benefit with the injection at last visit. With the patient's consent the right knee was prepped with ChloraPrep and alcohol. The skin was anesthetized with 2 cc of 1% lidocaine. The knee was then injected with 80 mg of triamcinolone and 1 cc of I % lidocaine. The patient tolerated the procedure with no immediate adverse effects. He can continue with the acetaminophen as above. He also has osteoarthritis in the lower back, neck and left shoulder as well but he denies major concern for those today. Discussed with patient that we have to be judicious with the steroid injections, since it can increase risk for localize bone thinning. Cautioned patient to rest for today and easy activities tomorrow. He desires and EMG study to identify if nerve conduction is impaired in his legs. - Ordered EMG Next visit in 6 months. Orders: Orders NE electromyogram (EMG) Today G58.8 - Other specified mononeuropathies, M53.3 - Sacrococcygeal disorders, not elsewhere classified AMB Joint Injection/Aspiration Today M17.12 - Unilateral primary osteoarthritis, left knee Coding Level of Care Code Est Pt Level 3 (61487) Diagnoses Primary osteoarthritis of left knee M17.12 Cluneal neuropathy G58.8 CPT Codes Coding - Large joint: 40670 - Large joint ([id number])
[2023-07-09 10:22] VITALS: BP 92/52; PULSE 81; TEMP 36.2; O2SAT 95
== END 2023-07-09 11:28 | disposition home or self-care (01) ==
PROVIDERS: PCP Internal Medicine; Visit Provider Nurse Practitioner Family
DX: M17.12 Unilateral primary osteoarthritis, left knee (principal); G58.8 Other specified mononeuropathies
CPT/HCPCS: 20610; 99213

== ENCOUNTER → 2023-07-09 10:19 | Outpatient (BNVA) | payer OTHER, SELFPAY | PROVIDERS: PCP Internal Medicine; Visit Provider Nurse Practitioner Family | DX: M17.12 Unilateral primary osteoarthritis, left knee (principal); G58.8 Other specified mononeuropathies | CPT/HCPCS: 20610; 99212 ==

== ENCOUNTER 2023-07-31 21:09 | Emergency (ER) | payer OTHER, SELFPAY ==
--- NOTE | ~2023-07-31 | XR_ITS ---
EXAMINATION: XR ABDOMEN KUB CLINICAL INDICATION: G-tube placement COMPARISON: 03/14/2023 TECHNIQUE: AP view of the abdomen after injection of water-soluble contrast into patient's gastrostomy tube. FINDINGS: Contrast material opacifies the proximal stomach and gastrostomy tubing, in keeping with tube terminating in the stomach. Bowel gas pattern is nonobstructive. Moderate stool is present in the colon. Limited assessment for free air with supine positioning. Included lung bases appear well-aerated. Redemonstrated spinal fusion hardware in the lower lumbar spine. XR/XR KUB IMPRESSION: Findings in keeping with gastrostomy tube terminating in the stomach.
[2023-07-31 21:38] VITALS: BP 144/60; PULSE 73; RESP 16; TEMP 36.6; O2SAT 99; BMI 19.6
[2023-07-31 23:29] VITALS: BP 160/72; PULSE 71; RESP 14; TEMP 36.9; O2SAT 100
--- NOTE | 2023-07-31 23:31 | PC.NURSE ---
Pt aox4 resting at the bedside. Reports gastric tube became dislodged earlier today. Last time it changed was about 6 months ago around February per pt. VSS. 20F G-tube loosely in place. Area red with clear drainage. Dressing changed and gauze applied to the area. Pt tolerated well.
--- NOTE | 2023-08-01 00:01 | ED_ITS ---
HPI - General Adult General Chief complaint: General Medical Stated complaint: g tube came out Time Seen by Provider: 07/31/23 23:47 Source: patient, RN notes reviewed and old records reviewed Mode of arrival: ambulatory Limitations: no limitations History of Present Illness HPI narrative: 72-year-old male presents for evaluation of ?G-tube replacement. ? Patient has a 20 Tunisian G-tube has been in place for quite some time He believes it was most recently changed here few months ago Patient states that ?it is too far out and leaking. ? He states that he 1st noticed around 5:00 p.m. that it appears to be dislodged He has no pain Related Data Home Medications Medication Instructions Recorded Confirmed umeclidinium 62.5 mcg-vilanterol 1 inh inhalation DAILY 06/21/20 06/05/23 25 mcg/actuation powdr for inhalation (Anoro Ellipta) acetaminophen 160 mg/5 mL oral 10 ml feeding tube TID PRN pain 11/18/22 06/05/23 liquid (M-PAP) duloxetine 30 mg capsule,delayed 1 cap PO DAILY 11/18/22 06/05/23 release fluticasone propionate 110 2 puff inhalation BID PRN 11/18/22 06/05/23 mcg/actuation HFA aerosol inhaler Shortness Of Breath Or Wheezing (Flovent HFA) fluticasone propionate 50 2 spray intranasal BID 11/18/22 06/05/23 mcg/actuation nasal spray,suspension levocetirizine 5 mg tablet 1 tab PO BEDTIME 11/18/22 06/05/23 tizanidine 4 mg tablet 1 tab PO BEDTIME 11/18/22 06/05/23 triamcinolone acetonide 0.5 % 1 appl topical BID PRN Rash 11/18/22 06/05/23 topical cream tramadol 50 mg tablet 50 mg PO TID PRN Pain, Moderate 02/02/23 06/05/23 (Pain Scale 4-6 peg-electrolyte solution 420 gram ml PO 05/06/23 06/05/23 oral solution timolol maleate 0.5 % eye drops 1 drp ophthalmic (eye) QAM 05/06/23 06/05/23 albuterol sulfate 90 mcg/actuation inhalation 06/08/23 aerosol inhaler ferrous sulfate 15 mg iron (75 PO 07/09/23 mg)/mL oral drops (Pediatric Fe-Talia) multivitamin 1 tab PO DAILY 07/09/23 Previous Rx's Medication Instructions Recorded cyanocobalamin (vitamin B-12) 1,000 mcg feeding tube DAILY #30 07/18/22 1,000 mcg tablet (Vitamin B-12) tabs gabapentin 400 mg capsule 400 mg feeding tube TID #30 caps 07/18/22 levothyroxine 75 mcg tablet 75 mcg feeding tube DAILY@0600 #30 07/18/22 tabs amlodipine 2.5 mg tablet 2.5 mg G-tube DAILY #30 tabs 04/03/23 omeprazole 40 mg capsule,delayed 1 cap PO BID #60 caps 04/03/23 release ascorbic acid (vitamin C) 500 mg 500 mg PO BID #120 tabs 05/22/23 chewable tablet (Vitamin C) Allergies Allergy/AdvReac Type Severity Reaction Status Date / Time Penicillins Allergy Intermediate Rash Verified 07/09/23 10:25 naproxen Allergy Mild Unknown Verified 07/09/23 10:25 aspirin [ASA] AdvReac Intermediate GI BLEED, Verified 07/09/23 10:25 Headaches Review of Systems Constitutional: Constitutional: Denies chills and Denies fever(s) Cardiovascular: Cardiovascular: Denies chest pain Gastrointestinal: Gastrointestinal: Denies abdominal pain, Denies nausea, Denies vomiting and Reports other (Reports G-tube dislodgement) PMFSH Past Medical History Medical History Uses feeding tube Pain around PEG tube site Normocytic anemia Lumbar radiculitis Post laminectomy syndrome History of epistaxis Esophageal stricture COVID-19 Anemia Pulmonary fibrosis Osteoarthritis of left shoulder Arthritis Back pain Hx of radiation therapy History of chemotherapy Cancer Difficulty swallowing Thyroid disease GERD (gastroesophageal reflux disease) Depression Pulmonary nodule COPD (chronic obstructive pulmonary disease) Aortic aneurysm Elevated cholesterol HTN (hypertension) Surgical History History of nasal surgery History of transurethral resection of prostate History of back surgery History of esophagogastroduodenoscopy (EGD) H/O colonoscopy Family History Family History Father Brain cancer Mother CVD (cardiovascular disease) Maternal Aunt Diabetes Social History Household Members: Spouse and Children Household Members Other:: 2 Housing: Apartment Do you presently have visiting nurse or other home services: No Alcohol intake: never Patient Tobacco Use Status: Former Tobacco user Quit Date: 40 years ago Tobacco use type: Cigarette Cigarette Packs Per Day: 3 Years Smoked: 25 Smoked in Last 30 Days: No e-Cigarette/Vaping Use: Never Used Second Hand Smoke Exposure: No Use of substances other than those prescribed or required for medical reasons: No Advance Directives: Yes Advance Directives on File: Yes Advance Directives Date on File: 03/04/21 service: No Current occupational status: disabled Physical Exam ED Vital Signs: Vital Signs - 24 hr 07/31/23 21:38 07/31/23 23:29 Temperature 97.9 F 98.4 F Pulse Rate 73 71 Respiratory Rate 16 14 Blood Pressure 144/60 H 160/72 H Pulse Oximetry 99 100 Oxygen Delivery Method Room Air Room Air BMI result Body Mass Index 19.6 Const General: healthy appearing, comfortable, no acute distress, alert and awake Orientation/consciousness: patient oriented x3 HENMT Head: Yes normocephalic and Yes atraumatic Eyes Eyelids: Yes eyelids normal Conjunctivae: conjunctivae normal Sclerae: sclerae normal Corneas: corneas normal Pupils: Equal, round and reactive pupils present EOM: EOMs intact bilaterally Neck Neck: Yes full ROM Resp Effort & Inspection: normal respiratory effort, able to speak in complete sentences and not labored Cardio Rate: regular rate Rhythm: regular rhythm GI Inspection: No distended and Yes G-tube present Palpation (GI): Soft to palpation, not firm, nontender, no guarding and not rigid Skin General skin exam: elasticity normal Neuro General: patient oriented x3 Cranial nerves: Yes Equal, round and reactive pupils present and Yes Bilaterally intact EOM present Cognition (Neuro): normal cognition Extrem Other: Moving all extremities well without any obvious deformities Course Reevaluation(s) Reevaluation #1: KUB with Gastrografin confirmed placement and functionality of the G-tube. Patient is stable for discharge Time: 01:44 Procedures Feeding Tube Replacement Type of Tube: gastrostomy Insertion Site Prior to Procedure: clean and GI fluid leaking Tunisian Tube Size (F): 22 Balloon size (mL): 10 Verification of Placement: KUB and gastrografin injection Tube Secured by: tape/dressing Patient Tolerated Procedure: well and no complications Medical Decision Making Medical Decision Making MDM Narrative: Patient has a 20 Tunisian G-tube is he still has the G-tube with him. Your trying to find the same size G-tube to be able to insert a new G-tube in will confirm with KUB placement Differential Diagnosis Differential Diagnoses: The differential diagnosis associated with the presentation includes G-tube malfunction G-tube dislodgement G-tube placement Malnourished Discharge Plan Discharge Clinical Impression: Dislodged gastrostomy tube Patient Disposition: Home, Self-Care Instructions: How to Use and Care for Your PEG Tube (ED) Prescriptions: No Action Anoro Ellipta 62.5-25 mcg/actuation Blister With Device 1 inh INHALATION DAILY gabapentin 400 mg capsule 400 mg feeding tube TID Qty: 30 0RF cyanocobalamin (vitamin B-12) [Vitamin B-12] 1,000 mcg tablet 1,000 mcg feeding tube DAILY Qty: 30 0RF levothyroxine 75 mcg tablet 75 mcg feeding tube DAILY@0600 Qty: 30 0RF acetaminophen [M-PAP] 160 mg/5 mL liquid 10 ml feeding tube TID PRN (Reason: pain) triamcinolone acetonide 0.5 % cream 1 appl topical BID PRN (Reason: Rash) tizanidine 4 mg tablet 1 tab PO BEDTIME fluticasone propionate [Flovent HFA] 110 mcg/actuation HFA aerosol inhaler 2 puff INHALATION BID PRN (Reason: Shortness Of Breath Or Wheezing) duloxetine 30 mg capsule,delayed release(DR/EC) 1 cap PO DAILY Rx Instructions: TAKE WITH 60MG levocetirizine 5 mg tablet 1 tab PO BEDTIME fluticasone propionate 50 mcg/actuation spray,suspension 2 spray intranasal BID tramadol 50 mg tablet 50 mg PO TID PRN (Reason: Pain, Moderate (Pain Scale 4-6) amlodipine 2.5 mg Tablet 2.5 mg G-tube DAILY Qty: 30 0RF Protocol: Hold for SBP< HOLD for SBP < : 90 omeprazole 40 mg capsule,delayed release(DR/EC) 1 cap PO BID Qty: 60 0RF ascorbic acid (vitamin C) [Vitamin C] 500 mg Tablet,Chewable 500 mg PO BID Qty: 120 6RF timolol maleate 0.5 % drops 1 drp ophthalmic (eye) QAM peg-electrolyte soln 420 gram recon soln PO albuterol sulfate 90 mcg/actuation HFA aerosol inhaler inhalation ferrous sulfate [Pediatric Fe-Talia] 15 mg iron (75 mg)/mL drops PO multivitamin Tablet 1 tab PO DAILY
[2023-08-01] MEDS: Diatrizoate Meglumine, Sodium 30 ML SOLUTION PO (01:46)
[2023-08-01 01:50] VITALS: BP 160/68; PULSE 74; RESP 14; TEMP 37.1; O2SAT 99
--- NOTE | 2023-08-01 01:50 | PC.NURSE ---
G-tube replaced with new 20F by MLP. Sterile dressing applied. No drainage or leakage noted. Pt tolerated well.
== END 2023-08-01 02:07 | disposition home or self-care (01) ==
PROVIDERS: Emergency Provider Internal Medicine; PCP Internal Medicine
DX: K94.20 Gastrostomy complication, unspecified (principal); Z87.891 Personal history of nicotine dependence; Z79.899 Other long term (current) drug therapy
CPT/HCPCS: 74018; 99284

== ENCOUNTER 2023-10-01 16:35 | Outpatient (REF) | payer OTHER, SELFPAY ==
[2023-10-01 16:46] LABS: MANUAL DIFF FLAG NO
[2023-10-01 17:15] LABS: Basophils Percent Auto 0.5 % (0-2); Eosinophils Percent Auto 0.9 % (0-4); Hematocrit 33.6 % (42.0-52.0); Imm Gran Abs Auto 0.01 X10*3/uL (0.00-0.03); Imm Gran Pct Auto 0.2 % (0.0-0.4); Lymphocytes Absolute Auto 0.7 X10*3/uL (1.2-4.9); Lymphocytes Percent Auto 16.8 % (20-40); Mean Corpuscular HGB Conc 32.7 g/dl (31.0-36.0); Mean Corpuscular Hemoglobin 32.7 pg (27.0-33.0); Monocytes Absolute Auto 0.7 X10*3/uL (0.1-1.2); Monocytes Percent Auto 15.2 % (2-11); Neutrophils Absolute Auto 2.9 x10*3/uL (2.0-8.3); Neutrophils Percent Auto 66.4 % (45-73); Platelet Count 313 X10*3/uL (160-400); Red Blood Count 3.36 X10*6/uL (4.60-5.80); Red Cell Distribution Width 14.1 % (11.0-16.0); White Blood Count 4.4 X10*3/uL (4.8-10.8)
[2023-10-01 17:52] LABS: Alanine Aminotransferase 12 U/L (0-40); Albumin Level 3.9 g/dL (3.5-5.0); Alkaline Phosphatase 66 U/L (39-117); Anion Gap 14 (12-20); Aspartate Amino Transferase 20 U/L (5-37); Bilirubin Total 0.3 mg/dL (0.0-1.0); Blood Urea Nitrogen 15 mg/dL (9-16); Carbon Dioxide 29 mmol/L (22-29); Chloride 98 mmol/L (96-108); Estimated Glomerular Filt Rate > 60; Glucose Random 67 mg/dL (60-115); Potassium 3.5 mmol/L (3.3-5.1); Sodium 137 mmol/L (135-145); Total Protein 7.6 g/dL (6.5-8.0)
[2023-10-01 18:05] LABS: Prostate Specific Antigen 0.33 ng/mL (<0.05-4.0)
== END 2023-10-01 16:36 | disposition home or self-care (01) ==
LOC: HO.LAB 16:35
PROVIDERS: PCP Internal Medicine; Visit Provider Internal Medicine
DX: E03.9 Hypothyroidism, unspecified (principal); I10 Essential (primary) hypertension; M87.30 Other secondary osteonecrosis, unspecified bone; D63.8 Anemia in other chronic diseases classified elsewhere; Z12.5 Encounter for screening for malignant neoplasm of prostate
CPT/HCPCS: 36415; 80053; 84153; 84443; 85025

== ENCOUNTER 2023-11-23 13:48 | Outpatient (AMB) | payer OTHER, SELFPAY ==
--- NOTE | 2023-11-23 13:48 | A.OFFVIS_ITS ---
Intake Intake Visit Reasons: 4 mth follow up Intake Note: Lawrence presents as a phone call today. CC: He states that he is good as long as he has the tramadol. Warehouse Manager Required: No Allergies Penicillins Allergy (Intermediate, Verified 11/23/23 13:48) Rash naproxen Allergy (Mild, Verified 11/23/23 13:48) Unknown aspirin [ASA] Adverse Reaction (Intermediate, Verified 11/23/23 13:48) GI BLEED, Headaches HPI 4 mth follow up HPI Details 73 yr old m called for f/u RECAP: He has had few similar episodes in the past associated with anemia, and transfused as needed he as having nose bleeds he had EGD x [address] Kim with stretching Last EGD 12/08/22 with dilation to 11 mm, stopped due to resp issues he has g tube in place as well EGD/Colonoscopy--04/2023: Endoscopy Findings: high grade esophageal stricture 2/2 prior radiation Colonoscopy Findings: AVM--ablated small internal hemorrhoids Labs: 11/28-- HGB stable at 11g/dl (on iron rx) INTERIM: no further nasal bleeding he feels his throat is getting tight again and he is requesting another dilation he is getting G tube feeds no melena no fresh blood no hematuria no abdominal pain a/P: 1/ Hx of anemia, stable with iron replac ement 2/ Dysphagia from XRT stricture PLAN: 1/ EGD repeat with balloon dilation, pre op anesthesia 2/ cont with iron therapy PFSH Medical History Uses feeding tube Pain around PEG tube site Normocytic anemia Lumbar radiculitis Post laminectomy syndrome History of epistaxis Esophageal stricture COVID-19 Anemia Pulmonary fibrosis Osteoarthritis of left shoulder Arthritis Back pain Hx of radiation therapy History of chemotherapy Cancer Difficulty swallowing Thyroid disease GERD (gastroesophageal reflux disease) Depression Pulmonary nodule COPD (chronic obstructive pulmonary disease) Aortic aneurysm Elevated cholesterol HTN (hypertension) Surgical History History of nasal surgery History of transurethral resection of prostate History of back surgery History of esophagogastroduodenoscopy (EGD) H/O colonoscopy Family History Father Brain cancer Mother CVD (cardiovascular disease) Maternal Aunt Diabetes Social History Household Members: Spouse and Children Household Members Other:: 2 Housing: Apartment Do you presently have visiting nurse or other home services: No Alcohol intake: never Comment: pt here with syncope and low BP Patient Tobacco Use Status: Former Tobacco user Quit Date: 40 years ago Tobacco use type: Cigarette Cigarette Packs Per Day: 3 Years Smoked: 25 e-Cigarette/Vaping Use: Never Used Second Hand Smoke Exposure: No Advance Directives Date on File: 03/04/21 service: No Current occupational status: disabled Assessment & Plan Assessment & Plan (1) Dysphagia: Code(s): R13.10 - Dysphagia, unspecified Plan: as above Telehealth Telehealth Location of provider rendering services: practice address Location of patient: address on file Patient Identification confirmed using: Name, : Yes Telehealth method: voice only Patient verbally consented to treatment: Yes Patient verbally consented to billing insurance company: Yes Patient informed of any privacy concerns related to visit: Yes Minutes spent on Phone/Video with Pt.: 7 Coding Level of Care Code Tele Est Pt Level 3 (24912) Diagnoses Dysphagia R13.10
== END 2023-11-23 14:29 | disposition home or self-care (01) ==
LOC: HO.HGI 13:48
PROVIDERS: PCP Internal Medicine; Visit Provider Internal Medicine Gastroenterology
DX: R13.10 Dysphagia, unspecified (principal)
CPT/HCPCS: 99441

== ENCOUNTER → 2023-11-23 13:48 | Outpatient (BNVA) | payer OTHER, SELFPAY | PROVIDERS: PCP Internal Medicine; Visit Provider Internal Medicine Gastroenterology ==

== ENCOUNTER 2024-02-03 23:40 | Emergency (ER) | payer OTHER, SELFPAY ==
[2024-02-03 23:54] VITALS: BP 128/70; PULSE 88; RESP 18; TEMP 36.6; O2SAT 97; BMI 20.8
[2024-02-04 00:21] LABS: Basophils Absolute Auto 0.1 X10*3/uL (0.0-0.2); Basophils Percent Auto 0.8 % (0-2); Eosinophils Absolute Auto 0.1 X10*3/uL (0.0-0.4); Eosinophils Percent Auto 1.5 % (0-4); Hematocrit 29.5 % (42.0-52.0); Imm Gran Abs Auto 0.02 X10*3/uL (0.00-0.03); Imm Gran Pct Auto 0.3 % (0.0-0.4); Lymphocytes Absolute Auto 0.8 X10*3/uL (1.2-4.9); Lymphocytes Percent Auto 12.7 % (20-40); MANUAL DIFF FLAG NO; Mean Corpuscular HGB Conc 33.9 g/dl (31.0-36.0); Mean Corpuscular Hemoglobin 32.9 pg (27.0-33.0); Mean Platelet Volume 10.1 fL (9.4-12.4); Monocytes Absolute Auto 1.2 X10*3/uL (0.1-1.2); Monocytes Percent Auto 18.8 % (2-11); Neutrophils Absolute Auto 4.3 x10*3/uL (2.0-8.3); Neutrophils Percent Auto 65.9 % (45-73); Platelet Count 212 X10*3/uL (160-400); Red Blood Count 3.04 X10*6/uL (4.60-5.80); Red Cell Distribution Width 14.5 % (11.0-16.0); White Blood Count 6.5 X10*3/uL (4.8-10.8)
[2024-02-04 00:37] LABS: Alanine Aminotransferase 26 U/L (0-40); Albumin Level 4.2 g/dL (3.5-5.0); Alkaline Phosphatase 69 U/L (39-117); Anion Gap 12 (12-20); Aspartate Amino Transferase 38 U/L (5-37); Bilirubin Direct < 0.2 mg/dL (0.0-0.5); Bilirubin Total 0.2 mg/dL (0.0-1.0); Blood Urea Nitrogen 34 mg/dL (9-16); Calcium 10.2 mg/dL (8.4-10.2); Carbon Dioxide 29 mmol/L (22-29); Chloride 101 mmol/L (96-108); Estimated Glomerular Filt Rate > 60; Glucose Random 77 mg/dL (60-115); Lipase 22 U/L (8-78); Potassium 3.7 mmol/L (3.3-5.1); Sodium 138 mmol/L (135-145); Total Protein 7.9 g/dL (6.5-8.0)
--- NOTE | 2024-02-04 01:13 | ED_ITS ---
HPI - General Adult General Chief complaint: General Medical Stated complaint: leaking tube? Time Seen by Provider: 02/04/24 00:39 Source: patient Mode of arrival: ambulatory Limitations: no limitations History of Present Illness ED Provider: Dr. Carole Carlson HPI narrative: patient comes to the emergency room complaining of a leaking G-tube. Patient states that he has had his tube inserted for over 7 months without getting change. Now the top part of the tube is leaking. Patient denies any pain, no skin issues. Related Data Home Medications ?Medication ?Instructions ?Recorded ?Confirmed umeclidinium 62.5 mcg-vilanterol 1 inh inhalation DAILY 06/21/20 11/19/23 25 mcg/actuation powdr for inhalation (Anoro Ellipta) acetaminophen 160 mg/5 mL oral 10 ml feeding tube TID PRN pain 11/18/22 11/19/23 liquid (M-PAP) fluticasone propionate 110 2 puff inhalation BID PRN 11/18/22 11/19/23 mcg/actuation HFA aerosol inhaler Shortness Of Breath Or Wheezing (Flovent HFA) fluticasone propionate 50 2 spray intranasal BID 11/18/22 11/19/23 mcg/actuation nasal spray,suspension levocetirizine 5 mg tablet 1 tab PO BEDTIME 11/18/22 11/19/23 tizanidine 4 mg tablet 1 tab PO BEDTIME 11/18/22 11/19/23 triamcinolone acetonide 0.5 % 1 appl topical BID PRN Rash 11/18/22 11/19/23 topical cream tramadol 50 mg tablet 50 mg PO TID PRN Pain, Moderate 02/02/23 11/19/23 (Pain Scale 4-6 timolol maleate 0.5 % eye drops 1 drp ophthalmic (eye) QAM 05/06/23 11/19/23 albuterol sulfate 90 mcg/actuation 90 mcg inhalation DAILY 06/08/23 11/19/23 aerosol inhaler multivitamin 1 tab PO DAILY 07/09/23 11/19/23 gabapentin 400 mg capsule 300 mg feeding tube TID 11/19/23 11/19/23 duloxetine 30 mg capsule,delayed 30 mg PO DAILY 11/23/23 release duloxetine 60 mg capsule,delayed 60 mg PO DAILY 11/23/23 release ferrous sulfate 220 mg (44 mg mg PO 11/23/23 iron)/5 mL oral elixir [id number] 120 mcg-lutein tab PO 11/23/23 150 mcg-herb 50 mg chewable tablet (Alive Men's 50 Plus Multivitamin) Previous Rx's ?Medication ?Instructions ?Recorded cyanocobalamin (vitamin B-12) 1,000 mcg feeding tube DAILY #30 07/18/22 1,000 mcg tablet (Vitamin B-12) tabs levothyroxine 75 mcg tablet 75 mcg feeding tube DAILY@0600 #30 07/18/22 tabs amlodipine 2.5 mg tablet 2.5 mg G-tube DAILY #30 tabs 04/03/23 omeprazole 40 mg capsule,delayed 1 cap PO BID #60 caps 04/03/23 release ascorbic acid (vitamin C) 500 mg 500 mg PO BID #120 tabs 05/22/23 chewable tablet (Vitamin C) ferrous sulfate 15 mg iron (75 15 mg PO DAILY #500 mL 08/20/23 mg)/mL oral drops (Pediatric Fe-Talia) Allergies Allergy/AdvReac Type Severity Reaction Status Date / Time Penicillins Allergy Intermediate Rash Verified 02/03/24 23:55 naproxen Allergy Mild Unknown Verified 02/03/24 23:55 aspirin [ASA] AdvReac Intermediate GI BLEED, Verified 02/03/24 23:55 Headaches Review of Systems 2 Review of Systems: Constitutional : No Weight loss, No Fever, No Chills, No Night Sweats, No Fatigue, No Malaise ENT/Mouth : No Hearing loss, No Ear Pain, No Nasal Congestion, No Sinus Pain, No Hoarseness, No sore throat, No Rhinorrhea, No Swallowing Difficulty Eyes: No Eye Pain, No Swelling, No Redness, No Foreign Body, No Discharge, No Vision Changes Cardiovascular : No Chest Pain, No SOB, No Dyspnea on Exertion, No Orthopnea, No Edema, No Palpitations Respiratory : No Cough, No Sputum, No Wheezing, No Smoke Exposure, No Dyspnea Gastrointestinal : Complaining of a G-tube leak, No Nausea, No Vomiting, No Diarrhea, No Constipation, No abdominal Pain, No Hematochezia, No Melena Genitourinary : no irregular bleeding, No Dysuria, No Urinary Frequency, No Hematuria, No Urinary Incontinence, No Urgency, No Flank Pain, No Urinary Flow Changes, No Hesitancy Musculoskeletal : No joint pain, No Myalgias, No Joint Swelling Skin : No Skin Lesions, No rash Neuro : No Weakness, No Numbness, No Paresthesias, No Loss of Consciousness, No Dizziness, No Headache Psych : No Anxiety/Panic, No Depression, No SI/HI/AH/VH, No Social Issues, Heme/Lymph: No Bruising, No Bleeding,No Lymphadenopathy Endocrine : No Polyuria, No Polydipsia, No Temperature Intolerance [facility] Past Medical History Medical History Uses feeding tube Pain around PEG tube site Normocytic anemia Lumbar radiculitis Post laminectomy syndrome History of epistaxis Esophageal stricture COVID-19 Anemia Pulmonary fibrosis Osteoarthritis of left shoulder Arthritis Back pain Hx of radiation therapy History of chemotherapy Cancer Difficulty swallowing Thyroid disease GERD (gastroesophageal reflux disease) Depression Pulmonary nodule COPD (chronic obstructive pulmonary disease) Aortic aneurysm Elevated cholesterol HTN (hypertension) Surgical History History of nasal surgery History of transurethral resection of prostate History of back surgery History of esophagogastroduodenoscopy (EGD) H/O colonoscopy Family History Family History Father Brain cancer Mother CVD (cardiovascular disease) Maternal Aunt Diabetes Social History Social History Household Members: Spouse and Children Household Members Other:: 2 Housing: Apartment Do you presently have visiting nurse or other home services: No Alcohol intake: never Comment: pt here with syncope and low BP Patient Tobacco Use Status: Former Tobacco user Quit Date: 40 years ago Tobacco use type: Cigarette Cigarette Packs Per Day: 3 Years Smoked: 25 Smoked in Last 30 Days: No e-Cigarette/Vaping Use: Never Used Second Hand Smoke Exposure: No Use of substances other than those prescribed or required for medical reasons: No Advance Directives: Yes Advance Directives on File: Yes Advance Directives Date on File: 03/04/21 Do you have a plan to hurt others: No Plan service: No Current occupational status: disabled Physical Exam ED Vital Signs: Vital Signs - 24 hr 02/03/24 23:54 Temperature 98 F Pulse Rate 88 Respiratory Rate 18 Blood Pressure 128/70 Pulse Oximetry 97 Oxygen Delivery Method Room Air BMI result Body Mass Index 20.8 Const Other: Appearance: Alert. Oriented X3. No acute distress. Eyes: Pupils equal, round and reactive to light. ENT: Pharynx normal. Neck: Normal inspection. Neck supple. No lymph nodes noted. No crepitus CVS: Normal heart rate and rhythm. Pulses normal. Normal S1 and S2 Respiratory: No respiratory distress. Breath sounds normal. No Wheezing. No rales Abdomen: Soft and nontender. No rigidity. No distention. patient has a 20 [place] G-tube in place, however it is leaking from the top Skin: Skin warm and dry. Normal skin color. Normal skin turgor. Extremities: No lower extremity edema. No Lacerations. No Rash Neuro: Oriented X 3. No motor deficit. No sensory deficit. Moving all extremities. No slurred speech. CN 2 through 12 grossly intact Psych: calm, cooperative, normal affect Medical Decision Making Medical Decision Making MDM Narrative: patient is due for a G-tube change. States that he has not had his tube change in over 7 months. - A 20 G-tube [place] was inserted uneventfully, easy insertion, good return - patient instructed to follow-up with his primary care physician - patient requesting Dr. Frankel office phone number for follow-up appointment/G-tube changes Lab Data 02/04/24 00:15 02/04/24 00:15 Labs: Lab Results 02/04/24 Range/Units 00:15 WBC 6.5 (4.8-10.8) X10*3/uL RBC 3.04 L (4.60-5.80) X10*6/uL Hgb 10.0 L (14.0-18.0) g/dl Hct 29.5 L (42.0-52.0) % MCV 97.0 (80.0-98.0) fL MCH 32.9 (27.0-33.0) pg MCHC 33.9 (31.0-36.0) g/dl RDW 14.5 (11.0-16.0) % Plt Count 212 (160-400) X10*3/uL MPV 10.1 (9.4-12.4) fL Immature Gran % (Auto) 0.3 (0.0-0.4) % Neut % (Auto) 65.9 (45-73) % Lymph % (Auto) 12.7 L (20-40) % [place] % (Auto) 18.8 H (2-11) % Eos % (Auto) 1.5 (0-4) % Baso % (Auto) 0.8 (0-2) % Lymph # (Auto) 0.8 L (1.2-4.9) X10*3/uL [place] # (Auto) 1.2 (0.1-1.2) X10*3/uL Eos # (Auto) 0.1 (0.0-0.4) X10*3/uL Baso # (Auto) 0.1 (0.0-0.2) X10*3/uL Abs Immat Gran (auto) 0.02 (0.00-0.03) X10*3/uL Absolute Neuts (auto) 4.3 (2.0-8.3) x10*3/uL Absolute Nucleated RBC 0.000 (0.0-0.012) X10*3/uL Nucleated RBC % (auto) 0.0 (0.0-0.2) /100WBC Sodium 138 (135-145) mmol/L Potassium 3.7 (3.3-5.1) mmol/L Chloride 101 (96-108) mmol/L Carbon Dioxide 29 (22-29) mmol/L Anion Gap 12 (12-20) BUN 34 H (9-16) mg/dL Creatinine 0.79 (0.5-1.4) mg/dL Estim Creat Clear Calc 71.0 Estimated GFR > 60 Random Glucose 77 (60-115) mg/dL Calcium 10.2 (8.4-10.2) mg/dL Total Bilirubin 0.2 (0.0-1.0) mg/dL Direct Bilirubin < 0.2 (0.0-0.5) mg/dL AST 38 H (5-37) U/L ALT 26 (0-40) U/L Alkaline Phosphatase 69 (39-117) U/L Total Protein 7.9 (6.5-8.0) g/dL Albumin 4.2 (3.5-5.0) g/dL Lipase 22 (8-78) U/L Discharge Plan Discharge Clinical Impression: Gastrostomy tube dysfunction Patient Disposition: Home, Self-Care Instructions: How to Use and Care for Your PEG Tube (ED) Additional Instructions: Please follow-up with your primary care physician tomorrow. If you have any worsening or new symptoms, please return to the emergency room or call 911 Prescriptions: No Action Anoro Ellipta 62.5-25 mcg/actuation Blister With Device 1 inh INHALATION DAILY cyanocobalamin (vitamin B-12) [Vitamin B-12] 1,000 mcg tablet 1,000 mcg feeding tube DAILY Qty: 30 0RF levothyroxine 75 mcg tablet 75 mcg feeding tube DAILY@0600 Qty: 30 0RF acetaminophen [M-PAP] 160 mg/5 mL liquid 10 ml feeding tube TID PRN (Reason: pain) triamcinolone acetonide 0.5 % cream 1 appl topical BID PRN (Reason: Rash) tizanidine 4 mg tablet 1 tab PO BEDTIME fluticasone propionate [Flovent HFA] 110 mcg/actuation HFA aerosol inhaler 2 puff INHALATION BID PRN (Reason: Shortness Of Breath Or Wheezing) levocetirizine 5 mg tablet 1 tab PO BEDTIME fluticasone propionate 50 mcg/actuation spray,suspension 2 spray intranasal BID tramadol 50 mg tablet 50 mg PO TID PRN (Reason: Pain, Moderate (Pain Scale 4-6) amlodipine 2.5 mg Tablet 2.5 mg G-tube DAILY Qty: 30 0RF Protocol: Hold for SBP< HOLD for SBP < : 90 omeprazole 40 mg capsule,delayed release(DR/EC) 1 cap PO BID Qty: 60 0RF ascorbic acid (vitamin C) [Vitamin C] 500 mg Tablet,Chewable 500 mg PO BID Qty: 120 6RF ferrous sulfate [Pediatric Fe-Talia] 15 mg iron (75 mg)/mL drops 15 mg PO DAILY Qty: 500 4RF gabapentin 400 mg capsule 300 mg feeding tube TID timolol maleate 0.5 % drops 1 drp ophthalmic (eye) QAM albuterol sulfate 90 mcg/actuation HFA aerosol inhaler 90 mcg inhalation DAILY multivitamin Tablet 1 tab PO DAILY Alive Men's 50 Plus Multivit 120 mcg-150 mcg -50 mg tablet,chewable PO ferrous sulfate 220 mg (44 mg iron)/5 mL elixir PO duloxetine 60 mg capsule,delayed release(DR/EC) 60 mg PO DAILY duloxetine 30 mg capsule,delayed release(DR/EC) 30 mg PO DAILY Referrals: Shailesh Frankel MD [Physician] - 02/05/24 Print Language: [place]
[2024-02-04 01:25] VITALS: BP 120/68; PULSE 82; RESP 18; TEMP 36.6; O2SAT 97
== END 2024-02-04 01:28 | disposition home or self-care (01) ==
PROVIDERS: Emergency Provider Emergency Medicine; PCP Internal Medicine
DX: K94.23 Gastrostomy malfunction (principal); Y83.3 Surgical operation with formation of external stoma as the cause of abnormal reaction of the patient, or of later complication, without mention of misadventure at the time of the procedure; Y92.9 Unspecified place or not applicable; I10 Essential (primary) hypertension; J44.9 Chronic obstructive pulmonary disease, unspecified
CPT/HCPCS: 36415; 43762; 80048; 80076; 83690; 85025; 99283; 99284

== ENCOUNTER 2024-02-09 11:27 | Outpatient (AMB) | payer OTHER, SELFPAY ==
--- NOTE | 2024-02-09 11:29 | A.OFFVIS_ITS ---
Vital Signs 02/09/24 11:39 Height 5 ft 7 in Weight 128 lb 4.944 oz BMI 20.1 BP 126/64 Blood Pressure Location Rt brachial Position Sitting Pulse 81 Pulse Source Pulse Oximeter Pulse Oximetry (%) 97 Oxygen Delivery Method Room Air Intake Visit Reasons: JOINT PAIN Intake Note: Pt last seen by Pauline Lara in July presents today for follow up. 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 Accompanied by: Self / Same As Patient Allergies Penicillins Allergy (Intermediate, Verified 02/09/24 11:40) Rash naproxen Allergy (Mild, Verified 02/09/24 11:40) Unknown aspirin [ASA] Adverse Reaction (Intermediate, Verified 02/09/24 11:40) GI BLEED, Headaches Medication List - Last Reconciled 02/09/24 by Kaitlin Koenig MD acetaminophen (M-PAP) 10 mL feeding tube TID PRN albuterol sulfate 90 mcg/actuation 90 mcg inhalation DAILY amlodipine 2.5 mg See Protocol G-tube DAILY ascorbic acid (vitamin C) (Vitamin C) 500 mg PO BID cyanocobalamin (vitamin B-12) (Vitamin B-12) 1,000 mcg feeding tube DAILY duloxetine 60 mg PO DAILY duloxetine 30 mg PO DAILY ferrous sulfate (Pediatric Fe-Talia) 15 mg PO DAILY ferrous sulfate mg PO fluticasone propionate 110 mcg/actuation (Flovent HFA) 2 puffs inhalation BID PRN fluticasone propionate 50 mcg/actuation 2 sprays intranasal BID gabapentin 300 mg feeding tube TID levocetirizine 1 tab PO BEDTIME levothyroxine 75 mcg feeding tube DAILY@0600 multivitamin 1 tab PO DAILY oy-nb-bjzfh-lutein-herbal 293 120 mcg-150 mcg -50 mg (Alive Men's 50 Plus Multivitamin) tabs PO omeprazole 1 cap PO BID timolol maleate 0.5% 1 drp ophthalmic (eye) QAM tizanidine 1 tab PO BEDTIME tramadol 50 mg PO TID PRN triamcinolone acetonide 0.5% 1 appl topical BID PRN umeclidinium-vilanterol 62.5-25 mcg/actuation (Anoro Ellipta) 1 inh inhalation DAILY HPI Comments Details: This is a 73-year-old male with generalized osteoarthritis who presents for follow-up. He was last seen by Pauline Lara 07/2023 and had a left knee cortisone injection. Patient states that the injection helped him for a number of months. States that today his main issue is his left knee pain. It is tolerable as he took his tramadol earlier in the morning today. He is requesting left knee injection today. [facility] Medical History Uses feeding tube Pain around PEG tube site Normocytic anemia Lumbar radiculitis Post laminectomy syndrome History of epistaxis Esophageal stricture COVID-19 Anemia Pulmonary fibrosis Osteoarthritis of left shoulder Arthritis Back pain Hx of radiation therapy History of chemotherapy Cancer Difficulty swallowing Thyroid disease GERD (gastroesophageal reflux disease) Depression Pulmonary nodule COPD (chronic obstructive pulmonary disease) Aortic aneurysm Elevated cholesterol HTN (hypertension) Surgical History History of nasal surgery History of transurethral resection of prostate History of back surgery History of esophagogastroduodenoscopy (EGD) H/O colonoscopy Family History Father Brain cancer Mother CVD (cardiovascular disease) Maternal Aunt Diabetes Social History Household Members: Spouse and Children Household Members Other:: 2 Housing: Apartment Do you presently have visiting nurse or other home services: No Alcohol intake: never Comment: pt here with syncope and low BP Patient Tobacco Use Status: Former Tobacco user Tobacco use type: Cigarette Cigarette Packs Per Day: 3 Years Smoked: 25 e-Cigarette/Vaping Use: Never Used Second Hand Smoke Exposure: No Advance Directives Date on File: 03/04/21 service: No Current occupational status: disabled Review of Systems [facility] [place]ralg[place] Physical Exam Vital Signs: Last Vital Signs Pulse 81 02/09/24 11:39 BP 126/64 02/09/24 11:39 Pulse Ox 97 02/09/24 11:39 Oxygen Delivery Method Room Air 02/09/24 11:39 BMI result Body Mass Index 20.1 Const General: cooperative, comfortable and no acute distress Nutritional Appearance: thin Orientation/consciousness: patient oriented x3 Limitations: no limitations HEENT Head: Yes normocephalic and Yes atraumatic Resp Effort & Inspection: normal respiratory effort and able to speak in complete sentences Neuro General: patient oriented x3 Extrem Other: Right knee pain with full flexion-extension Significant left knee crepitus and pain with flexion and extension Office Procedures Joint Injection/Drain Joint Injection/Drain Primary Site: left knee Prep: site was prepped using sterile technique and ethochloride spray was applied Injected: 40 mg of, Kenalog and other (2 mL of 1% lidocaine) Approach Used: medial parapatellar Procedure: The patient tolerated the procedure well Coding Details: With the patient's consent the left knee was prepped with ChloraPrep and alcohol. The skin was anesthetized with 2 cc of 1% lidocaine. The knee was then injected with 40 mg of triamcinolone and 2 cc of I % lidocaine. The patient tolerated the procedure with no immediate adverse effects. - Large joint Procedure code (CPT) selection complete Assessment & Plan Assessment & Plan (1) Primary osteoarthritis of left knee: Code(s): M17.12 - Unilateral primary osteoarthritis, left knee Category: Medical Plan: 73-year-old male with generalized osteoarthritis returns for left knee steroid injection. Most recent injection done 07/2023 provided relief for a number of months. Patient is requesting repeat injection. With patient's consent. Left knee was injected with Kenalog today. Follow-up in 6 months. Knee x-rays before next visit Orders: Orders AMB Joint Injection/Aspiration Today M17.12 - Unilateral primary osteoarthritis, left knee XR knee RT 3V 6 Months M19.90 - Unspecified osteoarthritis, unspecified site XR knee LT 3V 6 Months M19.90 - Unspecified osteoarthritis, unspecified site XR knee standing BI 6 Months M19.90 - Unspecified osteoarthritis, unspecified site Coding Level of Care Code Est Pt Level 3 (96946) Diagnoses Primary osteoarthritis of left knee M17.12 CPT Codes Coding - Large joint: 19072 - Large joint ([id number])
[2024-02-09 11:39] VITALS: BP 126/64; PULSE 81; O2SAT 97; BMI 20.1
== END 2024-02-09 11:53 | disposition home or self-care (01) ==
LOC: HO.RHE 11:27
PROVIDERS: PCP Internal Medicine; Visit Provider Student in an Organized Health Care Education/Training Program
DX: M17.12 Unilateral primary osteoarthritis, left knee (principal)
CPT/HCPCS: 20610; 99213

== ENCOUNTER → 2024-02-09 11:27 | Outpatient (BNVA) | payer OTHER, SELFPAY | PROVIDERS: PCP Internal Medicine; Visit Provider Student in an Organized Health Care Education/Training Program | DX: M17.12 Unilateral primary osteoarthritis, left knee (principal) | CPT/HCPCS: 20610; 99212 ==

== ENCOUNTER 2024-04-13 14:24 | Outpatient (REF) | payer OTHER, SELFPAY ==
[2024-04-13 18:09] LABS: Thyroid Stimulating Hormone 12.24 uIU/mL (0.32-4.0)
== END 2024-04-13 14:25 | disposition home or self-care (01) ==
LOC: HO.LAB 14:24
PROVIDERS: PCP Internal Medicine; Visit Provider Internal Medicine
DX: D64.89 Other specified anemias (principal); E03.9 Hypothyroidism, unspecified; I10 Essential (primary) hypertension; M96.1 Postlaminectomy syndrome, not elsewhere classified
CPT/HCPCS: 36415; 84443

== ENCOUNTER → 2024-05-23 12:40 | Outpatient (BNVA) | payer OTHER, SELFPAY | PROVIDERS: PCP Internal Medicine; Visit Provider Dietitian, Registered ==

== ENCOUNTER 2024-07-11 12:22 | Outpatient (AMB) | payer OTHER, SELFPAY ==
--- NOTE | 2024-07-11 12:26 | MHC.OFFVIS ---
Vital Signs 07/11/24 12:27 Height 5 ft 7 in Weight 132 lb 4.438 oz BMI 20.7 BP 124/67 Blood Pressure Location Lt brachial Position Sitting Pulse 84 Intake Visit Reasons: Dysphagia Intake Note: Lawrence presents in the office as a follow up. CC: States he is very fatigued with no energy. He states that he can only do a little sip of water and is unable to eat due to the tightness in the throat. 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 Allergies Penicillins Allergy (Intermediate, Verified 07/11/24 12:28) Rash aspirin [ASA] Adverse Reaction (Intermediate, Verified 07/11/24 12:28) GI BLEED, Headaches naproxen Adverse Reaction (Intermediate, Verified 07/11/24 12:28) cannot mix with current meds HPI HPI Dysphagia: Details: 73 yr old m called for f/u RECAP: He has had few similar episodes in the past associated with anemia, and transfused as needed he as having nose bleeds he had EGD x [address] Kim with stretching Last EGD 12/08/22 with dilation to 11 mm, stopped due to resp issues he has g tube in place as well EGD/Colonoscopy--04/2023: Endoscopy Findings: high grade esophageal stricture 2/2 prior radiation Colonoscopy Findings: AVM--ablated small internal hemorrhoids Labs: 11/28-- HGB stable at 11g/dl (on iron rx) INTERIM: He is totally NPO now, only getting G tube feeding his hgb is stable no melena he has poor energy i did refer him to [facility] as anesthesia here would not accept him due to v high risk no abdominal pain his TSH is high and PCP recently changed levothyroxine dose g tube formula has been changed as well EXAM: GENERAL: The patient is well developed and nontoxic. VITAL SIGNS:see workflow HEENT: Nonicteric sclerae, PERRLA, EOMI. Oropharynx clear. Moist mucous membranes. Conjunctivae appear well perfused. No thyroid mass. CHEST: Chest wall is nontender. HEART: Regular rate and rhythm without murmurs. LUNGS: Clear to auscultation bilaterally. ABDOMEN: Soft, positive bowel sounds, nontender, no organomegaly.no flank tenderness SKIN: No rash, no excessive bruising, petechiae, or purpura. NEUROLOGIC: Cranial nerves II-XII intact without motor/sensory deficit. Psych: normal affect a/P: 1/ Hx of anemia, stable with iron replacement 2/ Dysphagia from XRT stricture --now NPO and only on G tube 3/ fatigue could be from hypothyroidism PLAN: 1/ He does not want a referral to anywhere at this time 2/ He wants to see Dr Frankel for his g tube so he can change it --was placed surgically 3/ if ongoing fatigue despite improving TSH then check vitamin levels, consider higher calories in his feeds PFSH Medical History Uses feeding tube Pain around PEG tube site Normocytic anemia Lumbar radiculitis Post laminectomy syndrome History of epistaxis Esophageal stricture COVID-19 Anemia Pulmonary fibrosis Osteoarthritis of left shoulder Arthritis Back pain Hx of radiation therapy History of chemotherapy Cancer Difficulty swallowing Thyroid disease GERD (gastroesophageal reflux disease) Depression Pulmonary nodule COPD (chronic obstructive pulmonary disease) Aortic aneurysm Elevated cholesterol HTN (hypertension) Surgical History History of nasal surgery History of transurethral resection of prostate History of back surgery History of esophagogastroduodenoscopy (EGD) H/O colonoscopy Family History Father Brain cancer Mother CVD (cardiovascular disease) Maternal Aunt Diabetes Social History Household Members: Spouse and Children Household Members Other:: 2 Housing: Apartment Do you presently have visiting nurse or other home services: No Alcohol intake: never Comment: pt here with syncope and low BP Patient Tobacco Use Status: Former Tobacco user Tobacco use type: Cigarette Cigarette Packs Per Day: 3 Cigarettes Per Day: 3 Years Smoked: 25 e-Cigarette/Vaping Use: Never Used Second Hand Smoke Exposure: No Advance Directives Date on File: 03/04/21 service: No Current occupational status: disabled Physical Exam Vital Signs: Last Vital Signs Pulse 84 07/11/24 12:27 BP 124/67 07/11/24 12:27 BMI result Body Mass Index 20.7 Assessment & Plan Assessment & Plan (1) Dysphagia: Code(s): R13.10 - Dysphagia, unspecified Category: Medical Plan: see above Medications: New polyethylene glycol 3350 (Miralax) 17 grams PO DAILY 100 ea 0RF Changed From levothyroxine 75 mcg feeding tube DAILY@0600 30 tabs 0RF To levothyroxine 100 mcg (1.3333 x 75 mcg) feeding tube DAILY@0600 30 tabs 0RF Coding Level of Care Code Est Pt Level 3 (18732) Diagnoses Dysphagia R13.10
[2024-07-11 12:27] VITALS: BP 124/67; PULSE 84; BMI 20.7
== END 2024-07-11 13:00 | disposition home or self-care (01) ==
LOC: HO.HGI 12:23
PROVIDERS: PCP Internal Medicine; Visit Provider Internal Medicine Gastroenterology
DX: R13.10 Dysphagia, unspecified (principal)
CPT/HCPCS: 99213

== ENCOUNTER → 2024-07-11 12:22 | Outpatient (BNVA) | payer OTHER, SELFPAY | PROVIDERS: PCP Internal Medicine; Visit Provider Internal Medicine Gastroenterology | DX: R13.10 Dysphagia, unspecified (principal) | CPT/HCPCS: 99212 ==

== ENCOUNTER 2024-07-20 13:43 | Outpatient (AMB) | payer OTHER, SELFPAY ==
--- NOTE | 2024-07-20 13:51 | MHC.OFFVIS ---
Vital Signs 07/20/24 13:52 Height 5 ft 7 in Weight 137 lb BMI 21.5 BP 105/65 Blood Pressure Location Rt brachial Position Sitting Pulse 75 Intake Visit Reasons: g-tube change Intake Note: This patient presents for G-tube change. Pt c/o; reports his G-tube needs to be changed, last time it was changed was January 2024. [employer] Required: Yes [employer] Language: Psychiatric Orderly Services: [employer] Offered & Declined Accompanied by: Self / Same As Patient Allergies Penicillins Allergy (Intermediate, Verified 07/20/24 13:51) Rash aspirin [ASA] Adverse Reaction (Intermediate, Verified 07/20/24 13:51) GI BLEED, Headaches naproxen Adverse Reaction (Intermediate, Verified 07/20/24 13:51) cannot mix with current meds Medication List - Last Reconciled 07/20/24 by Shailesh Frankel MD acetaminophen (M-PAP) 10 mL feeding tube TID PRN albuterol sulfate 90 mcg/actuation 90 mcg inhalation DAILY amlodipine 2.5 mg See Protocol G-tube DAILY ammonium lactate 12% 1 appl topical BID ascorbic acid (vitamin C) (Vitamin C) 500 mg PO BID cyanocobalamin (vitamin B-12) (Vitamin B-12) 1,000 mcg feeding tube DAILY duloxetine 60 mg PO DAILY duloxetine 30 mg PO DAILY ferrous sulfate 220 mg PO DAILY fluticasone propionate 110 mcg/actuation (Flovent HFA) 2 puffs inhalation BID PRN fluticasone propionate 50 mcg/actuation 2 sprays intranasal BID gabapentin 300 mg PO DAILY levocetirizine 5 mg PO BEDTIME levothyroxine 100 mcg (1.3333 x 75 mcg) feeding tube DAILY@0600 [id number]-herbal [id number] 120 mcg-150 mcg -50 mg (Alive Men's 50 Plus Multivitamin) tabs PO omeprazole 1 cap PO BID polyethylene glycol 3350 (Miralax) 17 grams PO DAILY timolol maleate 0.5% 1 drp ophthalmic (eye) QAM tizanidine 1 tab PO BEDTIME tramadol 50 mg PO TID PRN triamcinolone acetonide 0.5% 1 appl topical BID PRN umeclidinium-vilanterol 62.5-25 mcg/actuation (Anoro Ellipta) 1 inh inhalation DAILY HPI HPI g-tube change: Details: 73-year-old male here to have a G-tube change. He had undergone an open G-tube placement in 2021 for an esophageal stricture. He says that the G-tube has been functioning well. He denies any complaints with this. However, this has not been changed since over a year ago. [facility] Medical History (Updated 07/20/24 @ 14:22 by Shailesh Frankel MD) Gastrostomy tube in place Uses feeding tube Pain around PEG tube site Normocytic anemia Lumbar radiculitis Post laminectomy syndrome History of epistaxis Esophageal stricture COVID-19 Anemia Pulmonary fibrosis Osteoarthritis of left shoulder Arthritis Back pain Hx of radiation therapy History of chemotherapy Cancer Difficulty swallowing Thyroid disease GERD (gastroesophageal reflux disease) Depression Pulmonary nodule COPD (chronic obstructive pulmonary disease) Aortic aneurysm Elevated cholesterol HTN (hypertension) Surgical History History of nasal surgery History of transurethral resection of prostate History of back surgery History of esophagogastroduodenoscopy (EGD) H/O colonoscopy Family History Father Brain cancer Mother CVD (cardiovascular disease) Maternal Aunt Diabetes Social History Household Members: Spouse and Children Household Members Other:: 2 Housing: Apartment Do you presently have visiting nurse or other home services: No Alcohol intake: never Comment: pt here with syncope and low BP Patient Tobacco Use Status: Former Tobacco user Tobacco use type: Cigarette Cigarette Packs Per Day: 3 Cigarettes Per Day: 3 Years Smoked: 25 e-Cigarette/Vaping Use: Never Used Second Hand Smoke Exposure: No Advance Directives Date on File: 03/04/21 service: No Current occupational status: disabled Review of Systems Const Denies chills and Denies fever(s) Card Denies chest pain at rest Resp Denies cough GI Denies abdominal pain Physical Exam Vital Signs: Last Vital Signs Pulse 75 07/20/24 13:52 BP 105/65 07/20/24 13:52 BMI result Body Mass Index 21.5 Const General: comfortable and no acute distress Resp Effort & Inspection: normal respiratory effort Cardio Rate: regular rate GI Other: G-tube in place, some mild irritation on the skin surrounding this Palpation (GI): Soft to palpation, not firm, nontender and no guarding Office Procedures Procedure Thyroid Biopsy Procedural Documentation: Procedure: Replacement of G-tube He was in supine position. The old G-tube was in place. The balloon was desufflated completely. The old G-tube was pulled out without difficulty. I inserted the new G-tube with the tract. He has a well-formed tract and the G-tube was inserted without difficulty I inserted the balloon to about 8 cc of normal saline. He tolerated procedure well. There were no immediate complications Assessment & Plan Assessment & Plan (1) Gastrostomy tube in place: Code(s): Z93.1 - Gastrostomy status Category: Medical Plan: I replaced the G-tube with the [place]ese 20 she replacement tube. The balloon was inflated to 8 cc of normal saline He tolerated procedure well. I told him that he can come back to the office for G-tube replacement in 6-12 months. Coding Level of Care Code Est Pt Level 3 (54844) Diagnoses Gastrostomy tube in place Z93.1
[2024-07-20 13:52] VITALS: BP 105/65; PULSE 75; BMI 21.5
== END 2024-07-20 14:23 | disposition home or self-care (01) ==
PROVIDERS: PCP Internal Medicine; Visit Provider Surgery
DX: Z93.1 Gastrostomy status (principal)
CPT/HCPCS: 99213

== ENCOUNTER → 2024-07-20 13:43 | Outpatient (BNVA) | payer OTHER, SELFPAY | PROVIDERS: PCP Internal Medicine; Visit Provider Surgery | DX: Z43.1 Encounter for attention to gastrostomy (principal) | CPT/HCPCS: 99212 ==

== ENCOUNTER 2024-08-30 09:53 | Emergency (ER) | payer OTHER, SELFPAY ==
[2024-08-30] VITALS (10 sets, daily range): BP systolic 78–123; BP diastolic 44–77; PULSE 61–81; RESP 2–18; TEMP 36.4–36.9; O2SAT 96–98; BMI 21.9
--- NOTE | ~2024-08-30 | XR_ITS ---
EXAMINATION: XR CHEST CLINICAL INFORMATION: cough, sob COMPARISON: 06/22/2023, 02/02/2023, 11/25/2022. TECHNIQUE: 2 views of the chest were obtained. FINDINGS: The cardiac, hilar, and mediastinal contours are normal. The lungs appear diffusely hyperaerated. Patchy lower lobe opacities bilaterally unchanged from prior exams and likely chronic scarring. There is no pneumothorax or pleural effusion. There is no focal osseous or soft tissue abnormality. XR/XR chest 2V IMPRESSION: 1. No definite active pulmonary disease identified. Bilateral patchy lower lobe opacities appear stable from priors and likely represent foci of scarring. 2. Suspect COPD. Electronically signed by: Tyrone Novak MD 08/30/2024 10:37 AM ROGER
--- NOTE | 2024-08-30 10:02 | ECG_ITS ---
Test Reason : DIZZINESS Blood Pressure : / mmHG Vent. Rate : 064 BPM Atrial Rate : 064 BPM P-R Int : 130 ms QRS Dur : 072 ms QT Int : 406 ms P-R-T Axes : 061 023 052 degrees QTc Int : 418 ms Normal sinus rhythm Normal ECG When compared with ECG of 22-JUN-2023 21:10, Nonspecific T wave abnormality now evident in Anterior leads Referred By: Wendy Armstrong Electronically Signed By:Ilya Lomax
[2024-08-30] MEDS: 0.9 % Sodium Chloride 1,000 ML 999 ML IV ×3 (10:09→13:38)
--- NOTE | 2024-08-30 10:23 | ED_ITS ---
HPI - Dizziness General Chief Complaint: Dizziness Stated Complaint: WEAKNESS,DIZZY,HYPOTENSIVE PER EMS Time Seen by Provider: 08/30/24 09:58 Source: patient Mode of arrival: EMS History of Present Illness ED Provider: Nathaniel HPI Narrative: 73-year-old male who states that he was cleaning this no off of his car and then when he went back inside began feeling dizzy and lightheaded, EMS notes he was hypotensive and started fluids on him. The patient denies any hematemesis or bright red blood/dark stools but does have a reported history of anemia, denies any recent fevers or chills. Related Data Home Medications ?Medication ?Instructions ?Recorded ?Confirmed umeclidinium 62.5 mcg-vilanterol 1 inh inhalation DAILY 06/21/20 07/20/24 25 mcg/actuation powdr for inhalation (Anoro Ellipta) acetaminophen 160 mg/5 mL oral 10 ml feeding tube TID PRN pain 11/18/22 07/20/24 liquid (M-PAP) fluticasone propionate 110 2 puff inhalation BID PRN 11/18/22 07/20/24 mcg/actuation HFA aerosol inhaler Shortness Of Breath Or Wheezing (Flovent HFA) fluticasone propionate 50 2 spray intranasal BID 11/18/22 07/20/24 mcg/actuation nasal spray,suspension tizanidine 4 mg tablet 1 tab PO BEDTIME 11/18/22 07/20/24 triamcinolone acetonide 0.5 % 1 appl topical BID PRN Rash 11/18/22 07/20/24 topical cream tramadol 50 mg tablet 50 mg PO TID PRN Pain, Moderate 02/02/23 07/20/24 (Pain Scale 4-6 timolol maleate 0.5 % eye drops 1 drp ophthalmic (eye) QAM 05/06/23 07/20/24 albuterol sulfate 90 mcg/actuation 90 mcg inhalation DAILY 06/08/23 07/20/24 aerosol inhaler duloxetine 30 mg capsule,delayed 30 mg PO DAILY 11/23/23 07/20/24 release duloxetine 60 mg capsule,delayed 60 mg PO DAILY 11/23/23 07/20/24 release ferrous sulfate 220 mg (44 mg 220 mg PO DAILY 11/23/23 07/20/24 iron)/5 mL oral elixir ammonium lactate 12 % topical cream 1 appl topical BID 07/11/24 07/20/24 gabapentin 300 mg capsule 300 mg PO DAILY 07/11/24 07/20/24 levocetirizine 5 mg tablet 5 mg PO BEDTIME 07/11/24 07/20/24 [id number] 120 mcg-lutein tab PO 07/11/24 07/20/24 150 mcg-herb 50 mg chewable tablet (Alive Men's 50 Plus Multivitamin) Previous Rx's ?Medication ?Instructions ?Recorded cyanocobalamin (vitamin B-12) 1,000 mcg feeding tube DAILY #30 07/18/22 1,000 mcg tablet (Vitamin B-12) tabs amlodipine 2.5 mg tablet 2.5 mg G-tube DAILY #30 tabs 04/03/23 omeprazole 40 mg capsule,delayed 1 cap PO BID #60 caps 04/03/23 release ascorbic acid (vitamin C) 500 mg 500 mg PO BID #120 tabs 05/22/23 chewable tablet (Vitamin C) levothyroxine 75 mcg tablet 100 mcg (1.3333 x 75 mcg) feeding 07/11/24 tube DAILY@0600 #30 tabs polyethylene glycol 3350 17 gram 17 g PO DAILY #100 ea 07/11/24 oral powder packet (Miralax) Allergies Allergy/AdvReac Type Severity Reaction Status Date / Time Penicillins Allergy Intermediate Rash Verified 08/30/24 09:57 aspirin [ASA] AdvReac Intermediate GI BLEED, Verified 07/20/24 13:51 Headaches naproxen AdvReac Intermediate cannot mix Verified 07/20/24 13:51 with current meds Review of Systems 2 Review of Systems: Pertinent positives and negatives as stated in [facility] Past Medical History Source: nursing notes reviewed Medical History Gastrostomy tube in place Uses feeding tube Pain around PEG tube site Normocytic anemia Lumbar radiculitis Post laminectomy syndrome History of epistaxis Esophageal stricture COVID-19 Anemia Pulmonary fibrosis Osteoarthritis of left shoulder Arthritis Back pain Hx of radiation therapy History of chemotherapy Cancer Difficulty swallowing Thyroid disease GERD (gastroesophageal reflux disease) Depression Pulmonary nodule COPD (chronic obstructive pulmonary disease) Aortic aneurysm Elevated cholesterol HTN (hypertension) Surgical History History of nasal surgery History of transurethral resection of prostate History of back surgery History of esophagogastroduodenoscopy (EGD) H/O colonoscopy Family History Family History Father Brain cancer Mother CVD (cardiovascular disease) Maternal Aunt Diabetes Social History Social History Household Members: Spouse and Children Household Members Other:: 2 Housing: Apartment Do you presently have visiting nurse or other home services: No Alcohol intake: never Comment: pt here with syncope and low BP Patient Tobacco Use Status: Former Tobacco user Tobacco use type: Cigarette Cigarette Packs Per Day: 3 Cigarettes Per Day: 3 Years Smoked: 25 Smoked in Last 30 Days: No e-Cigarette/Vaping Use: Never Used Second Hand Smoke Exposure: No Use of substances other than those prescribed or required for medical reasons: No Advance Directives: Yes Advance Directives on File: Yes Advance Directives Date on File: 03/04/21 service: No Current occupational status: disabled Physical Exam 2 Vital Signs: Vital Signs: Last Vital Signs Temp 97.6 F 08/30/24 09:57 Pulse 81 08/30/24 13:13 Resp 16 08/30/24 11:14 BP 85/51 L 08/30/24 13:13 Pulse Ox 97 08/30/24 11:14 O2 Del Method Room Air 08/30/24 11:14 BMI result Body Mass Index 21.9 VITAL SIGNS: Reviewed. GENERAL: Well developed, well nourished, in no acute distress. HEAD: Normocephalic/atraumatic EYES: PERRLA, EOMI EARS: Ext canals without abnormality NOSE: Nares patent bilateral OROPHARYNX: no oral lesions noted, posterior pharynx clear NECK: Supple, no adenopathy LUNGS: Normal breath sounds. No adventitious sounds or accessory muscle use. SpO2<98> CARDIOVASCULAR: Regular rate and rhythm without noted murmurs ABDOMEN: Soft, non-tender, non-distended with bowel sounds, G-tube in place and functioning. MUSCULOSKELETAL: No tenderness, deformities, or effusions noted on gross inspection. EXTREMITIES: No cyanosis, clubbing or edema. SKIN: Inspection of the skin reveals no rashes NEUROLOGIC: Alert and oriented x 4. Strength and sensation to light touch were grossly intact x 4. Medications Administered Discontinued Medications Generic Name Dose Route Start Last Admin Trade Name Yovanny PRN Reason Stop Dose Admin Sodium Chloride 1,000 mls @ 999 mls/hr 08/30/24 10:15 08/30/24 11:13 Ns IV 08/30/24 11:15 Infused .Q1H1M FRANCK Infusion Sodium Chloride 1,000 mls @ 999 mls/hr 08/30/24 12:15 08/30/24 12:52 Ns IV 08/30/24 13:15 Infused .Q1H1M FRANCK Infusion Sodium Chloride 1,000 mls @ 999 mls/hr 08/30/24 12:30 08/30/24 13:38 Ns IV 08/30/24 13:30 999 mls/hr .Q1H1M FRANCK Administration Medical Decision Making Medical Decision Making MDM Narrative: 73-year-old male with history and clinical presentation, DD DX: Will rule out etiologies of near-syncope such as infection, electrolyte, volume, arrhythmia. EKG: Sinus rhythm, HR-64, no STEMI, TX/QRS/QTC/QTC are within normal limits. I reviewed and interpreted all investigations and there is a chronic stable leukopenia with a chronically stable anemia and no thrombocytopenia. Coagulation studies her within normal limits. There is no demonstrate LUISA/electrolyte or liver enzyme derangements. Viral testing is negative for COVID-19/RSV/flu. My interpretation of the chest x-ray is there is no evidence of infiltrate or venous congestion. Orthostatics were positive, patient received 2 L of IV fluids, repeat orthostatic pressures as well as ambulation with significant improvement, after 2 L of fluid the patient is no longer dizzy and has a steady gait. Patient received an additional set of fluids and is otherwise stable for discharge to home. He was encouraged to give himself more water through his G-tube. Differential Diagnosis Differential Diagnoses: The differential diagnosis associated with the presentation includes See above Admission/Observation Consideration of admission/observation: Escalation of care including admission/observation considered Does not meet inpatient level of care Lab Data MDM Lab Attestation statement: I reviewed the patient's lab results. See above 08/30/24 10:32 08/30/24 10:32 Labs: Lab Results 08/30/24 08/30/24 Range/Units 10:32 10:33 WBC 3.2 L (4.8-10.8) X10*3/uL RBC 3.06 L (4.60-5.80) X10*6/uL Hgb 9.8 L (14.0-18.0) g/dl Hct 29.8 L (42.0-52.0) % MCV 97.4 (80.0-98.0) fL MCH 32.0 (27.0-33.0) pg MCHC 32.9 (31.0-36.0) g/dl RDW 14.7 (11.0-16.0) % Plt Count 199 (160-400) X10*3/uL MPV 10.3 (9.4-12.4) fL Immature Gran % (Auto) 0.3 (0.0-0.4) % Neut % (Auto) 70.8 (45-73) % Lymph % (Auto) 9.8 L (20-40) % [place] % (Auto) 15.9 H (2-11) % Eos % (Auto) 2.2 (0-4) % Baso % (Auto) 1.0 (0-2) % Lymph # (Auto) 0.3 L (1.2-4.9) X10*3/uL [place] # (Auto) 0.5 (0.1-1.2) X10*3/uL Eos # (Auto) 0.1 (0.0-0.4) X10*3/uL Baso # (Auto) 0.0 (0.0-0.2) X10*3/uL Abs Immat Gran (auto) 0.01 (0.00-0.03) X10*3/uL Absolute Neuts (auto) 2.2 (2.0-8.3) x10*3/uL Absolute Nucleated RBC 0.000 (0.0-0.012) X10*3/uL Nucleated RBC % (auto) 0.0 (0.0-0.2) /100WBC PT 12.7 H (10.9-12.4) SEC INR 1.1 (0.9-1.1) Sodium 142 (135-145) mmol/L Potassium 3.5 D (3.3-5.1) mmol/L Chloride 110 H (96-108) mmol/L Carbon Dioxide 29 (22-29) mmol/L Anion Gap 7 L (12-20) BUN 18 H (9-16) mg/dL Creatinine 0.76 (0.5-1.4) mg/dL Estim Creat Clear Calc 77.6 Estimated GFR > 60 Random Glucose 98 (60-115) mg/dL Calcium 9.0 D (8.4-10.2) mg/dL Total Bilirubin 0.2 (0.0-1.0) mg/dL AST 26 (5-37) U/L ALT 13 (0-40) U/L Alkaline Phosphatase 66 (39-117) U/L Troponin I High Sens < 2.7 (<3.5-35.0) ng/L Total Protein 6.1 L (6.5-8.0) g/dL Albumin 3.2 L (3.5-5.0) g/dL Influenza Type A (PCR) NEGATIVE (Negative) Influenza Type B (PCR) NEGATIVE (Negative) RSV RNA Qual (PCR) NEGATIVE (Negative) SARS-CoV-2 RNA (RT-PCR) NEGATIVE (Negative) Independent Interpretation I performed an independent interpretation of an: EKG and Plain X-Ray Interpretation: See above Radiology Impression Discussion of test interpretation with radiology: I have reviewed the radiologist's reading. Radiologist Impression: See above External Record Review External record reviewed: Prior outpatient radiology and Outside ED record Discharge Plan Discharge Clinical Impression: Dehydration Patient Disposition: Home, Self-Care Instructions: Dehydration (ED) Additional Instructions: Resume all home medications as prescribed. You need to give yourself more water through your G-tube as you are becoming dehydrated. Follow-up with your primary care doctor within the next week and do not hesitate to return to the emergency room for any worsening symptoms. Prescriptions: No Action Anoro Ellipta 62.5-25 mcg/actuation Blister With Device 1 inh INHALATION DAILY cyanocobalamin (vitamin B-12) [Vitamin B-12] 1,000 mcg tablet 1,000 mcg feeding tube DAILY Qty: 30 0RF acetaminophen [M-PAP] 160 mg/5 mL liquid 10 ml feeding tube TID PRN (Reason: pain) triamcinolone acetonide 0.5 % cream 1 appl topical BID PRN (Reason: Rash) tizanidine 4 mg tablet 1 tab PO BEDTIME fluticasone propionate [Flovent HFA] 110 mcg/actuation HFA aerosol inhaler 2 puff INHALATION BID PRN (Reason: Shortness Of Breath Or Wheezing) fluticasone propionate 50 mcg/actuation spray,suspension 2 spray intranasal BID tramadol 50 mg tablet 50 mg PO TID PRN (Reason: Pain, Moderate (Pain Scale 4-6) amlodipine 2.5 mg Tablet 2.5 mg G-tube DAILY Qty: 30 0RF Protocol: Hold for SBP< HOLD for SBP < : 90 omeprazole 40 mg capsule,delayed release(DR/EC) 1 cap PO BID Qty: 60 0RF ascorbic acid (vitamin C) [Vitamin C] 500 mg Tablet,Chewable 500 mg PO BID Qty: 120 6RF timolol maleate 0.5 % drops 1 drp ophthalmic (eye) QAM albuterol sulfate 90 mcg/actuation HFA aerosol inhaler 90 mcg inhalation DAILY ferrous sulfate 220 mg (44 mg iron)/5 mL elixir 220 mg PO DAILY duloxetine 60 mg capsule,delayed release(DR/EC) 60 mg PO DAILY duloxetine 30 mg capsule,delayed release(DR/EC) 30 mg PO DAILY Alive Men's 50 Plus Multivit 120 mcg-150 mcg -50 mg tablet,chewable PO ammonium lactate 12 % cream 1 appl topical BID gabapentin 300 mg capsule 300 mg PO DAILY levocetirizine 5 mg tablet 5 mg PO BEDTIME levothyroxine 75 mcg tablet 100 mcg feeding tube DAILY@0600 Qty: 30 0RF polyethylene glycol 3350 [Miralax] 17 gram powder in packet 17 g PO DAILY Qty: 100 0RF Referrals: Tracy Oneill MD [Primary Care Provider] - Print Language: Grenadian
[2024-08-30 10:38] LABS: MANUAL DIFF FLAG NO
[2024-08-30 10:44] LABS: INTERNATIONAL NORM RATIO 1.1 (0.9-1.1); Prothrombin Time 12.7 SEC (10.9-12.4)
[2024-08-30 10:51] LABS: Eosinophils Absolute Auto 0.1 X10*3/uL (0.0-0.4); Eosinophils Percent Auto 2.2 % (0-4); Hematocrit 29.8 % (42.0-52.0); Hemoglobin 9.8 g/dl (14.0-18.0); Imm Gran Abs Auto 0.01 X10*3/uL (0.00-0.03); Imm Gran Pct Auto 0.3 % (0.0-0.4); Lymphocytes Absolute Auto 0.3 X10*3/uL (1.2-4.9); Lymphocytes Percent Auto 9.8 % (20-40); Mean Corpuscular HGB Conc 32.9 g/dl (31.0-36.0); Mean Corpuscular Volume 97.4 fL (80.0-98.0); Mean Platelet Volume 10.3 fL (9.4-12.4); Monocytes Absolute Auto 0.5 X10*3/uL (0.1-1.2); Monocytes Percent Auto 15.9 % (2-11); Neutrophils Absolute Auto 2.2 x10*3/uL (2.0-8.3); Neutrophils Percent Auto 70.8 % (45-73); Platelet Count 199 X10*3/uL (160-400); Red Blood Count 3.06 X10*6/uL (4.60-5.80); Red Cell Distribution Width 14.7 % (11.0-16.0); White Blood Count 3.2 X10*3/uL (4.8-10.8)
[2024-08-30 11:04] LABS: Alanine Aminotransferase 13 U/L (0-40); Albumin Level 3.2 g/dL (3.5-5.0); Alkaline Phosphatase 66 U/L (39-117); Anion Gap 7 (12-20); Aspartate Amino Transferase 26 U/L (5-37); Bilirubin Total 0.2 mg/dL (0.0-1.0); Blood Urea Nitrogen 18 mg/dL (9-16); Carbon Dioxide 29 mmol/L (22-29); Chloride 110 mmol/L (96-108); Creatinine Clr Calc Pharmacy 77.6; Estimated Glomerular Filt Rate > 60; Glucose Random 98 mg/dL (60-115); Potassium 3.5 mmol/L (3.3-5.1); Sodium 142 mmol/L (135-145); Total Protein 6.1 g/dL (6.5-8.0)
[2024-08-30 11:12] LABS: Troponin-I High Sensitivity < 2.7 ng/L (<3.5-35.0)
[2024-08-30 11:16] LABS: Influenza A PCR NEGATIVE (Negative); Influenza B PCR NEGATIVE (Negative); Resp Syncy Virus RNA Qual PCR NEGATIVE (Negative); SARS COV2 PCR INHOUSE NEGATIVE (Negative)
--- NOTE | 2024-08-30 13:32 | PC.NURSE ---
tech to pt on ambulation trial all around ED. pt reported that he did not feel dizzy or weak when walking. steady ambulation. BP after walk was 122/59
== END 2024-08-30 15:23 | disposition home or self-care (01) ==
PROVIDERS: Emergency Provider Student in an Organized Health Care Education/Training Program; PCP Internal Medicine
DX: E86.0 Dehydration (principal); R42 Dizziness and giddiness; R94.31 Abnormal electrocardiogram [ECG] [EKG]; R11.0 Nausea; R10.2 Pelvic and perineal pain; Z87.891 Personal history of nicotine dependence; Z79.899 Other long term (current) drug therapy; Z03.818 Encounter for observation for suspected exposure to other biological agents ruled out
CPT/HCPCS: 0241U; 71046; 80053; 84484; 85025; 85610; 93005; 96360; 96361; 99284; 99285

== ENCOUNTER → 2024-08-30 10:02 | Outpatient (BNV) | payer OTHER, SELFPAY | PROVIDERS: Emergency Provider Student in an Organized Health Care Education/Training Program; PCP Internal Medicine; Visit Provider Radiology Diagnostic Radiology | DX: R06.02 Shortness of breath (principal); R05.9 Cough, unspecified | CPT/HCPCS: 71046 ==

== ENCOUNTER → 2024-08-30 10:02 | Outpatient (BNV) | payer OTHER, SELFPAY | PROVIDERS: Emergency Provider Student in an Organized Health Care Education/Training Program; PCP Internal Medicine; Visit Provider Internal Medicine Cardiovascular Disease | DX: R42 Dizziness and giddiness (principal) | CPT/HCPCS: 93010 ==

== ENCOUNTER 2024-09-12 14:23 | Outpatient (REF) | payer OTHER, SELFPAY ==
--- NOTE | ~2024-09-12 | XR_ITS ---
CLINICAL HISTORY: M19.90 - Unspecified osteoarthritis, unspecified site 2 view left knee Comparison: CR - XR KNEE RT 3V - 09/12/24 14:47 EST CR - XR KNEE STANDING BI - 09/12/24 14:43 EST Findings: Lateral and sunrise view of the left knee compared to the AP view demonstrating intramedullary bone infarcts in the distal femur and proximal tibia. No knee effusion. Intact patellofemoral compartment. No knee effusion. Soft tissues intact. 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 Intact patellofemoral compartment. No joint effusion. This document has been electronically signed by: Jose Luis Sexton MD on 09/13/2024 10:48:47
--- NOTE | ~2024-09-12 | XR_ITS ---
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 Correlation for risk factors for such as hypercoagulable state or underlying vascular disease. Otherwise normal mineralization. No acute fracture. No significant joint space narrowing or hypertrophic changes. Mild irregularity to the medial cortex of the medial femoral condyle bilaterally likely degenerative given the symmetry Soft tissues intact. 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 Mild degenerative appearing irregularity to the medial cortex of the medial femoral condyles. This document has been electronically signed by: Jose Luis Sexton MD on 09/13/2024 10:53:16
--- NOTE | ~2024-09-12 | XR_ITS ---
CLINICAL HISTORY: M19.90 - Unspecified osteoarthritis, unspecified site Lateral and sunrise view 3 views right knee Comparison: Concurrent AP view:. No prior imaging. Findings: Minimal patellar osteophyte superior pole. Otherwise normal-appearing patellofemoral relationship. No joint effusion. Soft tissues intact. Intramedullary bone infarct of the distal femur and proximal tibia. Impression: Intact patellofemoral compartment. No joint effusion. Bone infarcts as noted. This document has been electronically signed by: Jose Luis Sexton MD on 09/13/2024 10:54:16
== END 2024-09-12 14:24 | disposition home or self-care (01) ==
LOC: HO.XRAY 14:23
PROVIDERS: PCP Internal Medicine; Visit Provider Student in an Organized Health Care Education/Training Program
DX: M19.90 Unspecified osteoarthritis, unspecified site (principal)
CPT/HCPCS: 73562; 73565

== ENCOUNTER → 2024-09-12 14:28 | Outpatient (BNV) | payer OTHER, SELFPAY | PROVIDERS: PCP Internal Medicine; Visit Provider Radiology Diagnostic Radiology | DX: M17.0 Bilateral primary osteoarthritis of knee (principal) | CPT/HCPCS: 73562 ==

== ENCOUNTER 2024-09-15 12:39 | Outpatient (AMB) | payer OTHER, SELFPAY ==
--- NOTE | 2024-09-15 12:40 | MHC.OFFVIS ---
Vital Signs 09/15/24 12:41 Weight 136 lb 10.986 oz BP 112/64 Blood Pressure Location Rt brachial Position Sitting Pulse 62 Pulse Source Pulse Oximeter Intake Visit Reasons: OA/inj/ Intake Note: Patient last seen by Doctor Kaitlin Koenig on 02/09/24. Presents today for RA follow up and x-rays results. Gas Analyst Required: No Accompanied by: Self / Same As Patient Allergies Penicillins Allergy (Intermediate, Verified 09/15/24 12:45) Rash aspirin [ASA] Adverse Reaction (Intermediate, Verified 09/15/24 12:45) GI BLEED, Headaches naproxen Adverse Reaction (Intermediate, Verified 09/15/24 12:45) cannot mix with current meds Medication List - Last Reconciled 09/15/24 by Kaitlin Koenig MD acetaminophen (M-PAP) 10 mL feeding tube TID PRN albuterol sulfate 90 mcg/actuation 90 mcg inhalation DAILY amlodipine 2.5 mg See Protocol G-tube DAILY ammonium lactate 12% 1 appl topical BID ascorbic acid (vitamin C) (Vitamin C) 500 mg PO BID cyanocobalamin (vitamin B-12) (Vitamin B-12) 1,000 mcg feeding tube DAILY duloxetine 60 mg PO DAILY duloxetine 30 mg PO DAILY ferrous sulfate 220 mg PO DAILY fluticasone propionate 110 mcg/actuation (Flovent HFA) 2 puffs inhalation BID PRN fluticasone propionate 50 mcg/actuation 2 sprays intranasal BID gabapentin 300 mg PO DAILY levocetirizine 5 mg PO BEDTIME levothyroxine 100 mcg (1.3333 x 75 mcg) feeding tube DAILY@0600 [id number] 120 mcg-150 mcg -50 mg (Alive Men's 50 Plus Multivitamin) tabs PO omeprazole 1 cap PO BID polyethylene glycol 3350 (Miralax) 17 grams PO DAILY timolol maleate 0.5% 1 drp ophthalmic (eye) QAM tizanidine 1 tab PO BEDTIME tramadol 50 mg PO TID PRN triamcinolone acetonide 0.5% 1 appl topical BID PRN umeclidinium-vilanterol 62.5-25 mcg/actuation (Anoro Ellipta) 1 inh inhalation DAILY HPI Comments Details: This is a 73-year-old male with generalized osteoarthritis who presents for follow-up. He continues to have bilateral knee pain, more severe on the left, worse with going up and down the stairs. [facility] Medical History Gastrostomy tube in place Uses feeding tube Pain around PEG tube site Normocytic anemia Lumbar radiculitis Post laminectomy syndrome History of epistaxis Esophageal stricture COVID-19 Anemia Pulmonary fibrosis Osteoarthritis of left shoulder Arthritis Back pain Hx of radiation therapy History of chemotherapy Cancer Difficulty swallowing Thyroid disease GERD (gastroesophageal reflux disease) Depression Pulmonary nodule COPD (chronic obstructive pulmonary disease) Aortic aneurysm Elevated cholesterol HTN (hypertension) Surgical History History of nasal surgery History of transurethral resection of prostate History of back surgery History of esophagogastroduodenoscopy (EGD) H/O colonoscopy Family History Father Brain cancer Mother CVD (cardiovascular disease) Maternal Aunt Diabetes Social History Household Members: Spouse and Children Household Members Other:: 2 Housing: Apartment Do you presently have visiting nurse or other home services: No Alcohol intake: never Comment: pt here with syncope and low BP Patient Tobacco Use Status: Former Tobacco user Tobacco use type: Cigarette Cigarette Packs Per Day: 3 Cigarettes Per Day: 3 Years Smoked: 25 e-Cigarette/Vaping Use: Never Used Second Hand Smoke Exposure: No Advance Directives Date on File: 03/04/21 service: No Current occupational status: disabled Review of Systems [facility] Reports arthralgias Physical Exam Vital Signs: Last Vital Signs Pulse 62 09/15/24 12:41 BP 112/64 09/15/24 12:41 Const General: cooperative, comfortable and no acute distress Nutritional Appearance: thin Orientation/consciousness: patient oriented x3 Limitations: no limitations HEENT Head: Yes normocephalic and Yes atraumatic Resp Effort & Inspection: normal respiratory effort and able to speak in complete sentences Neuro General: patient oriented x3 Extrem Other: Tenderness at the distal end of the femurs bilaterally Right knee pain with full flexion-extension Significant left knee crepitus and pain with flexion and extension Assessment & Plan Assessment & Plan (1) Bone infarct of distal femur: Code(s): M87.059 - Idiopathic aseptic necrosis of unspecified femur Category: Medical Qualifiers: Laterality: unspecified laterality Qualified Code(s): M87.059 - Idiopathic aseptic necrosis of unspecified femur Plan: 73-year-old male with multiple comorbidities including history of throat cancer s/p chemoradiation returns for follow-up. He has been following up for left knee osteoarthritis, he received a few injections. His bilateral knee x-rays show bone infarcts in the distal femur and proximal tibia bilaterally. Discussed with patient that at this time I would like him to get evaluated by Dr. Goldstein, to rule out any underlying hypercoagulable disorders. Would hold off on any further steroid injections at this time. Can try using Voltaren gel Follow-up after Dr. Goldstein's evaluation Plan I spent 15 minutes reviewing patient's chart, evaluating patient, placing orders, counseling patient and documenting in the chart Orders: Referrals Hematology & Oncology Referral M87.059 - Idiopathic aseptic necrosis of unspecified femur Coding Level of Care Code Est Pt Level 3 (17099) Diagnoses Infarction of distal femur, unspecified laterality M87.059 Laterality: unspecified laterality
[2024-09-15 12:41] VITALS: BP 112/64; PULSE 62
== END 2024-09-15 12:59 | disposition home or self-care (01) ==
PROVIDERS: PCP Internal Medicine; Visit Provider Student in an Organized Health Care Education/Training Program
DX: M87.059 Idiopathic aseptic necrosis of unspecified femur (principal)
CPT/HCPCS: 99213

== ENCOUNTER → 2024-09-15 12:39 | Outpatient (BNVA) | payer OTHER, SELFPAY | PROVIDERS: PCP Internal Medicine; Visit Provider Student in an Organized Health Care Education/Training Program | DX: M87.059 Idiopathic aseptic necrosis of unspecified femur (principal) | CPT/HCPCS: 99212 ==

== ENCOUNTER 2024-10-10 15:06 | Outpatient (REF) | payer OTHER, SELFPAY ==
--- NOTE | ~2024-10-10 | MR_ITS ---
EXAMINATION: MR KNEE WITHOUT CONTRAST, RIGHT CLINICAL INFORMATION: Infarction distal femur proximal tibia right knee. COMPARISON: Plain films 09/12/2024. TECHNIQUE: MRI of the knee without contrast was performed using routine sequences on a high-field scanner. FINDINGS: MENISCI: Medial Meniscus: Tiny undersurface tear posterior horn (series 10, image 9) . Otherwise intact. Lateral Meniscus: Horizontal cleavage tear extending to the free margin posterior horn , with more medial free margin fraying (Series 10, images 18-21). Otherwise intact. LIGAMENTS: Anterior Cruciate: Intact and normal in signal. Posterior Cruciate: Intact and normal in signal. Medial Collateral: Intact and normal in signal. Lateral Collateral Complex: Biceps femoris tendon, conjoined tendon, fibular collateral ligament, and popliteus tendon are all intact and normal in signal. EXTENSOR MECHANISM: Intact and normal in signal. The patellar retinaculum and medial patellofemoral ligament are intact. JOINT COMPARTMENTS: Patellofemoral Compartment: Mild arthritis present, with mild cartilage superficial fraying and eburnation of the lateral facet. Mild thinning of the medial facet. No full-thickness cartilaginous defect. Medial Compartment: Mild cartilaginous thinning tibial plateau especially medial aspect weightbearing femoral cartilage. Nonweightbearing femoral cartilage is intact. Joint space is overall preserved. Lateral Compartment: Minimal superficial cartilaginous thinning and eburnation of the weightbearing components. No full-thickness defect. Joint space is overall preserved. OSSEOUS STRUCTURES: -There are bone infarctions in the intramedullary femoral metadiaphysis and tibial metadiaphysis. -No fractures or foci of subchondral bone plate edema. -No additional abnormal bone marrow signal. JOINT FLUID AND BURSAE: There is no joint effusion. There is a tiny Glasgow's cyst in the medial popliteal fossa measuring 9 x 7 x 29 mm. MR/MR knee RT wo con IMPRESSION: 1. Horizontal cleavage tear posterior horn lateral meniscus. 2. Tiny undersurface tear posterior horn medial meniscus. 3. Intramedullary bone infarctions within the femoral and tibial metadiaphyses. No suspicious abnormal bone marrow signal or gross edema. 4. No ligamentous abnormalities. 5. Tiny Glasgow's cyst in the medial popliteal fossa. Electronically signed by: Tyrone Novak MD 10/10/2024 04:17 PM [facility]
--- OUTSIDE RECORDS SUMMARY | 2024-10-10 16:37 | XMS_ITS | Clinical Summary ---
Author Organization Formerly [facility] Address [address] [place] [address] Care Team Providers Care Occupational Psychologist Name Role Phone Unknown Primary Care Provider [phone] Allergies Active Allergy Reactions Criticality Noted Date Comments Lisinopril Unknown/Patient and Family Unable to Define Medium 11/25/2021 Medications Medication Sig Dispensed Refills Start Date End Date Status Acetaminophen Extra Strength 500 MG tablet Take 500 mg by mouth 3 (three) times a day as needed for mild pain or headaches. 09/11/2021 Active atorvastatin (LIPITOR) 80 MG tablet Take 80 mg by mouth nightly. 10/18/2021 Active DULoxetine (CYMBALTA) 60 MG capsule Take 60 mg by mouth every morning. Along with 30 mg capsule for total dose of 90 mg 10/14/2021 Active DULoxetine (CYMBALTA) 30 MG capsule Take 30 mg by mouth every morning. Along with 60 mg capsule for total dose of 90 mg 10/14/2021 Active fluticasone (FloNASE) 50 mcg/spray nasal spray SHAKE LIQUID AND USE 1 SPRAY IN EACH NOSTRIL TWICE DAILY 11/21/2021 Active gabapentin (NEURONTIN) 400 MG capsule Take 400 mg by mouth 3 (three) times a day. 11/04/2021 Active folic acid (FOLVITE) 1 MG tablet Take 1 mg by mouth daily. 11/25/2021 Active losartan (COZAAR) 50 MG tablet Take 50 mg by mouth daily. 10/17/2021 Active OMEprazole (PriLOSEC) 40 MG capsule Take 40 mg by mouth every morning before breakfast. 11/13/2021 Active tiZANidine (ZANAFLEX) 4 MG tablet Take 4 mg by mouth nightly. 10/17/2021 Active traMADol (ULTRAM) 50 MG tablet Take 50 mg by mouth 3 (three) times a day as needed. for pain 11/28/2021 Active triamcinolone (KENALOG) 0.5 % cream APPLY EXTERNALLY TO THE AFFECTED AREA TWICE DAILY. 11/13/2021 Active albuterol (PROVENTIL HFA; VENTOLIN HFA) 108 (90 Base) MCG/ACT inhaler INHALE 2 PUFFS BY MOUTH EVERY 4 TO 5 HOURS NEEDED FOR SHORTNESS OF BREATH Active levothyroxine (Synthroid) 75 MCG tablet Take 75 mcg by mouth daily on an empty stomach. Active cyanocobalamin (VITAMIN B-12) 1000 MCG tablet Take 1,000 mcg by mouth daily. Active Multiple Vitamins-Minerals (Centrum Silver 50+Men) Tab Take 1 tablet by mouth daily. Active umeclidinium-vilante rol (ANORO ELLIPTA) 62.5-25 MCG/INH inhaler Inhale 1 puff as needed. Active sulfamethoxazole-tri methoprim (BACTRIM) suspensionIndication s:Facial cellulitis Take 20 mL by mouth every 12 (twelve) hours around the clock. 400 mL 12/12/2021 Active Active Problems Problem Noted Date Diagnosed Date Facial cellulitis 12/06/2021 Family History Medical History Relation Name Comments Heart disease Mother Relation Name Status Comments Mother Social History Tobacco Use Types Packs/Day Years Used Date Smoking Tobacco: Former Comments:quit 30 years ago Alcohol Use Standard Drinks/Week Comments Never 0 (1 standard drink = 0.6 oz pur e alcohol) Sex and Gender Information Value Date Recorded Sex Assigned at Not on file Gender Identity Not on file Sexual Orientation Not on file Last Filed Vital Signs Vital Sign Reading Time Taken Comments Blood Pressure 128/68 12/12/2021 1:45 PM EDT Pulse 80 12/12/2021 1:45 PM EDT Temperature 35.8 ??C (96.4 ??F) 12/12/2021 1:45 PM ED T Respiratory Rate 18 12/12/2021 1:45 PM EDT Oxygen Saturation 99% 12/12/2021 1:45 PM EDT Inhaled Oxygen Concentration - - Weight 60.8 kg (134 lb) 12/07/2021 1:15 AM EDT Height 167.6 cm (5' 6 ) 12/09/2021 3:51 PM EDT Body Mass Index 21.63 12/07/2021 1:15 AM EDT Plan of Treatment Health Maintenance Due Date Last Done Comments Hepatitis C Virus Screening 1950 DTaP/Tdap/Td Vaccines (1 - Tdap) 1969 Colonoscopy 1995 Pneumococcal Vaccines 50+ (1 of 1 - PCV) 2000 Zoster (Shingles) Vaccine (1 of 2) 2000 Influenza Vaccine 04/07/2024 COVID-19 Vaccine ( - 2023-2 5 season) 2024 RSV Vaccine 60 years and old er and Patients (1 - 1-dose 75+ series) 2025 Hepatitis B Vaccines Aged Out No long er eligible based on patient's age to complete this topic Advance Directives * Full Code (Latest Code Status on File) Date Activated Date Inactivated Comments 12/06/2021 9:21 PM Care Teams Occupational Psychologist Relationship Specialty Start Date End Date Unknown Unknow Provider Address PCP - General 12/06/21
--- OUTSIDE RECORDS SUMMARY | 2024-10-10 16:37 | XMS_ITS | Clinical Summary ---
[facility] Address [id number] [place] [id number] Care Team Providers Care Terrazzo Tile Setter Name Role Phone Unavailable Primary Care Provider Unavailabl e Surgical History Surgery Date Site/Laterality Comments BACK SURGERY 02/2003 PROCEDURE: HISTORICAL BACK SURGERY; COMMENT: Lumbar Fusion, Dr. Henderson TURP / TRANSURETHRAL INCISIO N / DRAINAGE PROSTATE PROCEDURE: HISTORICAL TURP; COMMENT: x2: 08/2005, 09/2008 OTHER SURGICAL HISTORY PROCEDURE: MS EGD DILATION GASTRIC/DUODENAL STRICTURE; COMMENT: Esophageal, x3 Medical History Medical History Date Comments Facial cellulitis 12/06/2021 DX:Facial cell ulitis COPD (chronic obstructive pu lmonary disease) ([facility]) DX:COPD (chronic obstructive pulmonary disease) ([facility]) Aortic stenosis DX:Aortic stenos is Coronary stenosis DX:Coronary st enosis BPH (benign prostatic hyperplasia) DX:BPH (benign prostatic hyperplasia) Lumbar spondylosis DX:Lumbar spo ndylosis Cancer of tonsil ([facility]) DX:Ca ncer of tonsil ([facility]); COMMENT: Malignant neoplasm of pharynx, status post surgery Depression DX:Depression Hyperlipidemia DX:Hyperlipidemi a Hypothyroidism DX:Hypothyroidis m Joyner's esophagus DX:Joyner's esophagus Hiatal hernia DX:Hiatal hernia Ascending aortic aneurysm ([facility]) DX:Ascending aortic aneurysm ([facility]) Social History Tobacco Use Types Packs/Day Years Used Date Smoking Tobacco: Never Assessed Sex and Gender Information Value Date Recorded Sex Assigned at Not on file Gender Identity Not on file Sexual Orientation Not on file Obstetrics History Last Filed Vital Signs Vital Sign Reading Time Taken Comments Blood Pressure 140/70 03/04/2022 9:46 AM EDT Pulse 86 03/04/2022 9:46 AM EDT Temperature - - Respiratory Rate - - Oxygen Saturation - - Inhaled Oxygen Concentration - - Weight 59.9 kg (132 lb) 03/04/2022 9:46 AM EDT Height 170.2 cm (5' 7 ) 03/04/2022 9:46 AM EDT Body Mass Index 20.67 03/04/2022 9:46 AM EDT Plan of Treatment Health Maintenance Due Date Last Done Comments DTaP,Tdap,and Td Vaccines (1 - Tdap) 1969 Zoster Vaccines (2 of 3) 11/26/2015 016, 07/06/2012 Pneumococcal Vaccine: 65+ Years (2 of 2 - PPSV23 or PCV20) 10/01/2016 10/01/2015 Abdominal Aortic Aneurysm (AAA) Screen 08/10/2022 Cholesterol Screening (Lipid Panel) 08/10/2022 Colorectal Cancer Screening: Colonoscopy 08/10/2022 Depression Screening 08/10/2022 Falls Risk Assessment 08/10/2022 Hepatitis C Screening 08/10/2022 Social Influencers of Health Screening 08/10/2022 COVID-19 Vaccine (4 - 2023-2 5 season) 2024 03/20/2021, 01/04/2021, 12/07/2020 Influenza Vaccine (#1) 2024 0, 06/09/2017, 04/15/2016 RSV Immunization Patients 60 + Years Old (1 - 1-dose 75+ series) 2025 HIB Vaccines Aged Out No longer eligi ble based on patient's age to complete this topic HPV Vaccines Aged Out No longer eligi ble based on patient's age to complete this topic Hepatitis A Vaccines Aged Out No long er eligible based on patient's age to complete this topic Hepatitis B Vaccines Aged Out No long er eligible based on patient's age to complete this topic IPV Vaccines Aged Out No longer eligi ble based on patient's age to complete this topic MMR Vaccines Aged Out No longer eligi ble based on patient's age to complete this topic Meningococcal ACWY Vaccine Aged Out N o longer eligible based on patient's age to complete this topic RSV Immunization Patients Under 20 months Aged Out No longer eligible b ased on patient's age to complete this topic Varicella Vaccines Aged Out No longer eligible based on patient's age to complete this topic
== END 2024-10-10 15:07 | disposition home or self-care (01) ==
LOC: HO.MRI 15:06
PROVIDERS: PCP Internal Medicine; Visit Provider Internal Medicine Medical Oncology
DX: M87.051 Idiopathic aseptic necrosis of right femur (principal)
CPT/HCPCS: 73721

== ENCOUNTER → 2024-10-10 15:16 | Outpatient (BNV) | payer OTHER, SELFPAY | PROVIDERS: PCP Internal Medicine; Visit Provider Radiology Diagnostic Radiology | DX: M23.251 Derangement of posterior horn of lateral meniscus due to old tear or injury, right knee (principal); M87.851 Other osteonecrosis, right femur; M87.861 Other osteonecrosis, right tibia | CPT/HCPCS: 73721 ==

== ENCOUNTER 2024-11-09 15:17 | Outpatient (REF) | payer OTHER, SELFPAY ==
[2024-11-09 15:30] LABS: MANUAL DIFF FLAG NO
[2024-11-09 17:20] LABS: Basophils Percent Auto 0.4 % (0-2); Eosinophils Absolute Auto 0.1 X10*3/uL (0.0-0.4); Hematocrit 35.9 % (42.0-52.0); Hemoglobin 11.7 g/dl (14.0-18.0); Imm Gran Abs Auto 0.02 X10*3/uL (0.00-0.03); Imm Gran Pct Auto 0.4 % (0.0-0.4); Lymphocytes Absolute Auto 0.7 X10*3/uL (1.2-4.9); Lymphocytes Percent Auto 14.3 % (20-40); Mean Corpuscular HGB Conc 32.6 g/dl (31.0-36.0); Mean Corpuscular Hemoglobin 31.7 pg (27.0-33.0); Mean Corpuscular Volume 97.3 fL (80.0-98.0); Mean Platelet Volume 10.9 fL (9.4-12.4); Monocytes Absolute Auto 0.6 X10*3/uL (0.1-1.2); Monocytes Percent Auto 13.7 % (2-11); Neutrophils Absolute Auto 3.1 x10*3/uL (2.0-8.3); Neutrophils Percent Auto 69.2 % (45-73); Platelet Count 219 X10*3/uL (160-400); Red Blood Count 3.69 X10*6/uL (4.60-5.80); Red Cell Distribution Width 15.1 % (11.0-16.0); White Blood Count 4.5 X10*3/uL (4.8-10.8)
[2024-11-09 18:15] LABS: Alanine Aminotransferase 20 U/L (0-40); Albumin Level 4.1 g/dL (3.5-5.0); Alkaline Phosphatase 74 U/L (39-117); Anion Gap 10 (12-20); Aspartate Amino Transferase 33 U/L (5-37); Bilirubin Total 0.3 mg/dL (0.0-1.0); Blood Urea Nitrogen 19 mg/dL (9-16); Calcium 9.8 mg/dL (8.4-10.2); Carbon Dioxide 29 mmol/L (22-29); Chloride 101 mmol/L (96-108); Cholesterol 153 mg/dL (<200); Estimated Glomerular Filt Rate > 60; Glucose Random 86 mg/dL (60-115); HDL Cholesterol 44 mg/dL (>40); LDL Cholesterol Calculated 88 mg/dL (<100); Potassium 3.8 mmol/L (3.3-5.1); Sodium 136 mmol/L (135-145); Total Protein 7.9 g/dL (6.5-8.0); Triglycerides 107 mg/dL (<150)
--- OUTSIDE RECORDS SUMMARY | 2024-11-09 18:30 | XMS_ITS ---
[facility] Organization [facility] Address [address] [place] [address] Care Team Providers Care Site Engineer Name Role Phone Lalylana Tracy Primary Care Provider Unavailab Jarod Davis Unavailable [phone] Allergies Allergen (clinical drug ingredient) Drug/Non Drug Allergy documented on EMR Reaction Allergy Type Onset Date Status aspirin Aspirin Unknown Drug Allergy Active Penicillin Unknown Drug Allergy Active REASON FOR VISIT At Risk Footcare, Painful Nail(s) aggravated by shoes and causing difficulty standing/walking., Skin problem(s) Medications Medication SIG (Take, Route, Frequency, Duration) Notes Start Date End Date Status Belbuca 150 MCG (Schedule III Drug) DISSOLVE 1 FILM UNDER THE TONGUE BID Buccal for 30 Not-Taking Fluvirin - ADM 0.5ML IM UTD Intramuscular for 1 Not-Taking Loratadine 10 MG TK 1 T PO D Oral for 30 Not-Taking Butrans 10 MCG/HR (Schedule III Drug) JIMI 1 PATCH TO THE SKIN ONCE A WEEK FOR 2 WEEKS THEN U 2 PATCHES FOR 1 WEEK Transdermal for 21 Not-Taki ng Tamsulosin HCl 0.4 MG TK 1 C PO HS Oral for 90 Not-Taking Arthritis Pain Relief 650 MG TK 1 T PO TID Oral for 30 Active Vitamin B-12 1000 MCG TK 1 T PO D Oral for 90 Active Azithromycin 250 MG Oral for 5 Not-Taking Orthopedic Extra Depth Shoes With Custom Heat Molded Multidensity Innersoles 1 Pair shoes with 3 Pair custom heat molded innersoles Wear Daily for 365 days 06/11/2023 Active Multi-Vitamins - TK 1 T PO QD Oral fo r 90 Active tiZANidine HCl 2 MG TK 1 C PO TID Oral f or 30 Active Triamcinolone Acetonide 0.5 % JIMI EXT AA BID External for 28 Active Simvastatin 40 MG TK 1 T PO HS Oral fo r 90 Active Qvar 80 MCG/ACT INL 1 PUFF PO BID Inhalation for 30 Active Pramipexole Dihydrochloride ER 3 MG TK 1 T PO HS Oral for 90 Active Gabapentin 300 MG TK 1 C PO TID Oral f or 90 Active ProAir HFA 108 (90 Base) MCG/ACT INL 2 PUFFS PO QID PRF ASTHMA Inhalation for 16 Active Omeprazole 40 MG TK 1 C PO D Oral for 90 Active Meclizine HCl 12.5 MG TK 1 T PO TID PRF DIZZINESS Oral for 33 Active Levothyroxine Sodium 88 MCG TK 1 T PO D Oral for 90 Acti ve Fluticasone Propionate 50 MCG/ACT U 1 SPRAY IN EACH NOSTRIL BID Nasal for 30 Active Ferrous Sulfate 325 (65 Fe) MG TK 1 T PO QD Oral for 90 Active Diclofenac Sodium 75 MG TK 1 T PO BID Or al for 30 Active DULoxetine HCl 60 MG TK 1 C PO QD WITH 3 0 MG C Oral for 90 Active Artificial Tears 1-0.3 % INSTILL 1 DROP IN BOTH EYES QID AND Q 2 H PRN FOR IRRATATION Ophthalmic for 13 Active Ammonium Lactate 12 % 1 application to affected area Externally Twice a day to dry areas of skin on feet for 30 days 03/24/2024 Active Social History Tobacco Use: Social History Observation Description Date Details (start date - stop date) Never Smoker NA - NA Tobacco Use/Smoking Question Answer Notes Are you a: nonsmoker Additional Findings: Tobacco Non-User Current no n-smoker Tobacco use other than smoking: Question Answer Notes Are you an other tobacco user? No Vital Signs Height 5ft7in in 03/24/2024 Weight 130 lbs 03/24/2024 BMI 20.36 kg/m2 03/24/2024 Procedures Procedure Date Ordered Date Performed Result Body Sit e 36157-KGRZWCZ NAIL, 6 OR MORE 03/24/2024 N/A 51550-RCWJ SKIN LESIONS, OVER 4 03/24/2024 N/A Encounters Encounter Location Date Provider Diagnosis [facility] [address] [address] 03/24/2024 Jarod Boone Atherosclerosis of [place] artery of both lower extremities, with unspecified presence of clinical manifestation I70.203 ; Tinea unguium B35.1 ; Pain in right toe(s) M79.674 ; Pain in left toe(s) M79.675 and Xerosis of skin L85.3 Assessments Encounter Date Diagnosis (ICD Code) Assessment Notes Treatment Notes Treatment Clinical Notes Section Notes 03/24/2024 Atherosclerosis of [place] artery of both lower extremities, with unspecified presence of clinical manifestation (ICD-10 - I70.203) 03/24/2024 Tinea unguium (ICD-10 - B35.1) 03/24/2024 Pain in right toe(s) (ICD-10 - M79.674) 03/24/2024 Pain in left toe(s) (ICD-10 - M79.675) 03/24/2024 Xerosis of skin (ICD-10 - L85.3) Plan Of Treatment Medication Medication Name Sig Start Date Stop Date Notes Ammonium Lactate 12 % 1 application to a ffected area Externally Twice a day to dry areas of skin on feet for 30 days 03/24/2024 Pending Test Test Name Order Date [id number] NAIL, 6 OR MORE 03/24/2024 26895-NSPJ SKIN LESIONS, OVER 4 03/24/20 24 Next Appt Details Follow Up: 2 Months, Reason: Provider Name:Jarod Boone , 12/15/2024 01:45:00 PM, [address] [facility], [address], [place], [address], Procedure Notes * Category Sub-Category Detail Notes Debride Nail 6-10 Nail debridement Nail debridem ent performed extensively to reduce/remove overall nail length, girth, thickness, subungual debris, and necrotic tissue, by manual and electrical means through the use of a nail nipper and/or dremel, to more viable healthy nail plate or bed tissue 1-5. Silver nitrate used for any petechial bleeding as necessary. Patient chooses, no pharmaceutical tx (43125) Keratoma Treatment Parring or Cutting o f Benign Hyperkeratotic Lesion(s) 59790 ( >4 Lesions) - The Benign hyperkeratotic lesions, as described above were pared, and/or cut utilizing a sterile #15 blade, tissue nippers, and/or dremel, Q8 Progress Notes * Ganesh PEDERSEN:1950 (73 yo M)Acc No.[id number]:03/24/2024 Progress Note Patient:Lawrence Frey Provider:?Jarod Boone DPM :1950???Age:73 Y???Sex:Male Salvador e:03/24/2024 Address:[address] [place], [place] [id number] Pcp:Tracy Oneill Subjective: * Chief Complaints: * ???At Risk FootcarePainful N ail(s) aggravated by shoes and causing difficulty standing/walking.Skin problem(s) * HPI: ???At Risk footcare:?Pt States Last PCP Visit:?Date?03/14/2024 ???Skin problems:?Nature:?dryness , scaling.?Location:?B/L .?Duration:?several days.?Course:?worse.? * ROS:?General/Constitutional:?Nausea?denies.?Vomiting?denies.?Hunger Thirst?admits.?Loss appetite?denies.?Chills?denies.?Fatigue?denies.?Fever?denies.?Night Sweats?denies.?Unexplained weight loss?denies.?Unexplained weight gain?denies.?HEENTM:?Dentures?denies.?Dizziness?admits.?Glasses/contacts?admits.?Retinopathy?de nies.?Blurred/double vision?admits.?TMJ?denies.?Discharge/drainage?denies.?Implants?denies.?Sore throat?denies.?Dental implants?denies.?Hard of hearing ?denies.?Difficulty chewing/swallowing/speaking?denies.?Nose bleeds?denies.?Sore mouth?denies.?Respiratory:?On Oxygen?denies.?Pneumonia/pleurisy?denies.?Bronchitis?denies.?Emphysema?denies.?C oughing?denies.?Cough blood?denies.?Shortness of breath?denies.?Wheezing?denies.?Cardiovascular:?Pacemaker?denies.?MVP?denies.?WPW?denies.?CHF?denies.?Heart attack?denies.?Septal defect?denies.?Rapid beat?denies.?Chest pain ?denies.?Atrial Fib.?denies.?Murmur/Palpitations?denies.?Gastrointestinal:?Hemorrhoids?denies.?Stomach/Abdominal pain?denies.?Dark blood stool?denies.?Irritable bowel ?denies.?Constipation?denies.?Diarrhea?denies.?Hematology:?Swelling?denies.?Clots?denies.?Varicose Veins?admits.?Bruising?denies.?Bleeding problem?denies.?Genitourinary:?Blood urine?denies.?Frequent/Painfu/urination/bladder control?admits.?Kidney stones?denies.?Infection (UTI)?denies.?Nephropathy?denies.?sex trans dis (STD)?denies.?Prostate?denies.?Musculoskeletal:?Hammertoes?admits.?Bunions?denies.?Back Pain?denies.?Muscle Cramps/ Resting?denies.?Muscle cramps / walking?denies.?Generalized aches and pains?denies.?Weakness?denies.?Integ.:?Ibarra?denies.?Scars?denies.?Corns/calluses?admits.?Ingrown nails?admits.?Painful nails?admits.?Open Sores?denies.?Rashes?denies.?Neurologic:?Difficulty sleeping?denies.?Brain disorder?denies.?Numbness?denies.?Balance trouble?admits.?Confusion?denies.?Fainting/blackouts?denies.?Tingling?denies.?Tr emors?denies.? * Medical History:? * Surgical History:?lower back surgery throat surgery * Hospitalization/Major Diagno stic Procedure:?[facility]- [facility] blood pressure 05/2021[facility], anemia 10/29[facility]- blood pressure, anemia 07/2022[facility]- a week stay, anemia, blood transfusion 05/2023 * Family History:?Mother: dece ased, diagnosed with Unspecified heart disease.?Father: , diagnosed with Other malignant neoplasm of unspecified site.?Spouse: alive.? * Social History:?Tobacco Use:?Tobacco Use/Smoking?Are you a:?nonsmoker ?Additional Findings: Tobacco Non-User?Current non-smoker ?Tobacco use other than smoking?Are you an other tobacco user??No ???Miscellaneous:?Caffeine: yes, frequency:, 1-2 cups per day. ?Children: yes. ?no Exercise. ?Marital status: . ?Occupation: Retired. * Medications:?TakingArtificia l Tears 1-0.3 % Solution INSTILL 1 DROP IN BOTH EYES QID AND Q 2 H PRN FOR IRRATATION Ophthalmic DULoxetine HCl 60 MG Capsule Delayed Release Particles TK 1 C PO QD WITH 30 MG C Oral Diclofenac Sodium 75 MG Tablet Delayed Release TK 1 T PO BID Oral Ferrous Sulfate 325 (65 Fe) MG Tablet TK 1 T PO QD Oral Fluticasone Propionate 50 MCG/ACT Suspension U 1 SPRAY IN EACH NOSTRIL BID Nasal Gabapentin 300 MG Capsule TK 1 C PO TID Oral Levothyroxine Sodium 88 MCG Tablet TK 1 T PO D Oral Meclizine HCl 12.5 MG Tablet TK 1 T PO TID PRF DIZZINESS Oral Omeprazole 40 MG Capsule Delayed Release TK 1 C PO D Oral ProAir HFA 108 (90 Base) MCG/ACT Aerosol Solution INL 2 PUFFS PO QID PRF ASTHMA Inhalation Pramipexole Dihydrochloride ER 3 MG Tablet Extended Release 24 Hour TK 1 T PO HS Oral Qvar 80 MCG/ACT Aerosol Solution INL 1 PUFF PO BID Inhalation Simvastatin 40 MG Tablet TK 1 T PO HS Oral Triamcinolone Acetonide 0.5 % Cream JIMI EXT AA BID External tiZANidine HCl 2 MG Capsule TK 1 C PO TID Oral Vitamin B-12 1000 MCG Tablet TK 1 T PO D Oral Arthritis Pain Relief 650 MG Tablet Extended Release TK 1 T PO TID Oral Multi-Vitamins - Tablet TK 1 T PO QD Oral Orthopedic Extra Depth Shoes With Custom Heat Molded Multidensity Innersoles 1 Pair shoes with 3 Pair custom heat molded innersoles Wear DailyTaking Artificial Tears 1-0.3 % Solution INSTILL 1 DROP IN BOTH EYES QID AND Q 2 H PRN FOR IRRATATION Ophthalmic Taking DULoxetine HCl 60 MG Capsule Delayed Release Particles TK 1 C PO QD WITH 30 MG C Oral Taking Diclofenac Sodium 75 MG Tablet Delayed Release TK 1 T PO BID Oral Taking Ferrous Sulfate 325 (65 Fe) MG Tablet TK 1 T PO QD Oral Taking Fluticasone Propionate 50 MCG/ACT Suspension U 1 SPRAY IN EACH NOSTRIL BID Nasal Taking Gabapentin 300 MG Capsule TK 1 C PO TID Oral Taking Levothyroxine Sodium 88 MCG Tablet TK 1 T PO D Oral Taking Meclizine HCl 12.5 MG Tablet TK 1 T PO TID PRF DIZZINESS Oral Taking Omeprazole 40 MG Capsule Delayed Release TK 1 C PO D Oral Taking ProAir HFA 108 (90 Base) MCG/ACT Aerosol Solution INL 2 PUFFS PO QID PRF ASTHMA Inhalation Taking Pramipexole Dihydrochloride ER 3 MG Tablet Extended Release 24 Hour TK 1 T PO HS Oral Taking Qvar 80 MCG/ACT Aerosol Solution INL 1 PUFF PO BID Inhalation Taking Simvastatin 40 MG Tablet TK 1 T PO HS Oral Taking Triamcinolone Acetonide 0.5 % Cream JIMI EXT AA BID External Taking tiZANidine HCl 2 MG Capsule TK 1 C PO TID Oral Taking Vitamin B-12 1000 MCG Tablet TK 1 T PO D Oral Taking Arthritis Pain Relief 650 MG Tablet Extended Release TK 1 T PO TID Oral Taking Multi- Vitamins - Tablet TK 1 T PO QD Oral Taking Orthopedic Extra Depth Shoes With Custom Heat Molded Multidensity Innersoles 1 Pair shoes with 3 Pair custom heat molded innersoles Wear DailyNot-Taking/PRNAzithromycin 250 MG Tablet Oral Tamsulosin HCl 0.4 MG Capsule TK 1 C PO HS Oral Butrans 10 MCG/HR Patch Weekly (Schedule III Drug) JIMI 1 PATCH TO THE SKIN ONCE A WEEK FOR 2 WEEKS THEN U 2 PATCHES FOR 1 WEEK Transdermal Loratadine 10 MG Tablet TK 1 T PO D Oral Fluvirin - Suspension ADM 0.5ML IM UTD Intramuscular Belbuca 150 MCG Film (Schedule III Drug) DISSOLVE 1 FILM UNDER THE TONGUE BID Buccal Medication List reviewed and reconciled with the patientNot-Taking/PRN Azithromycin 250 MG Tablet Oral Not-Taking/PRN Tamsulosin HCl 0.4 MG Capsule TK 1 C PO HS Oral Not-Taking/PRN Butrans 10 MCG/HR Patch Weekly (Schedule III Drug) JIMI 1 PATCH TO THE SKIN ONCE A WEEK FOR 2 WEEKS THEN U 2 PATCHES FOR 1 WEEK Transdermal Not- Taking/PRN Loratadine 10 MG Tablet TK 1 T PO D Oral Not-Taking/PRN Fluvirin - Suspension ADM 0.5ML IM UTD Intramuscular Not-Taking/PRN Belbuca 150 MCG Film (Schedule III Drug) DISSOLVE 1 FILM UNDER THE TONGUE BID Buccal Medication List reviewed and reconciled with the patient * Allergies:?AspirinPenicillin yes[Allergies Verified] Objective: * Vitals:?Ht: 5ft7in, Wt:130, BMI:20.36, Shoe size: 8.5, Ht-cm: 170.18 cm, Wt-k.97 kg. * Examination: ???Vascular: ?DP PULSES:? 0/4, B/L.?PT PULSES:? 1/4, B/L.?CAPILLARY FILL TIME:? delayed, all digits, B/L.?SKIN TEMPERTURE GRADIENT OF THE LOWER EXTERMITIES:? decreased, cool to cool, proximal to distal, B/L.?HAIR GROWTH/TEXTURE/ELASTICITY/TURGOR:? decreased, B/L.?PIGMENTATION:? mottled, B/L.?EDEMA:?absent, B/L.?CLAUDICATION:?denies, B/L.?REST PAIN:?denies, B/L.?Nails: ?NAILS are:? Elongated, overgrown, dystrophic, lytic, greater than 3mm thick, discolored and friable with crumbly malodorous subungual debris, with pain on palpation, 1-5 B/L.?Dermatologic: ?SKIN FINDINGS:? Skin exam reveals Keratotic lesion(s) located at, SUB MTH (s), 1, B/L , SUB MTH (s), 5, B/L , Heel(s), B/L , Skin shows sign(s) of, dryness, scaling, in a stocking fashion, no fissure(s) present, B/L.? Assessment: * Assessment: 1.?Tinea unguium - B35.1?2.? Atherosclerosis of [place] artery of both lower extremities, with unspecified presence of clinical manifestation - I70.203?3.?Pain in right toe(s) - M79.674?4.?Pain in left toe(s) - M79.675?5.?Xerosis of skin - L85.3, Acute problem, Uncomplicated (3),Rx Management (4)? Plan: * Treatment: 2.?Atherosclerosis of or[place] artery of both lower extremities, with unspecified presence of clinical manifestation?Procedure: 25840-ICKF SKIN LESIONS, OVER 4 3.?Xerosis of skin? Start Ammonium Lactate Cream, 12 %, 1 application to affected area, Externally, Twice a day to dry areas of skin on feet, 30 days, 140, Refills 2.?? * Procedures:?Debride Nail 6-10:?Nail debridement?Nail debridement performed extensively to reduce/remove overall nail length, girth, thickness, subungual debris, and necrotic tissue, by manual and electrical means through the use of a nail nipper and/or dremel, to more viable healthy nail plate or bed tissue 1-5. Silver nitrate used for any petechial bleeding as necessary. Patient chooses, no pharmaceutical tx (26617).?Keratoma Treatment:?Parring or Cutting of Benign Hyperkeratotic Lesion(s)?65134 ( >4 Lesions) - The Benign hyperkeratotic lesions, as described above were pared, and/or cut utilizing a sterile #15 blade, tissue nippers, and/or dremel, Q8.? * Procedure Codes:?99463 DEBRI DE NAIL, 6 OR MORE, Modifiers: XS 67236 TRIM SKIN LESIONS, OVER 4, Modifiers: XS , Q8 * Preventive Medicine:? ??Counseling:?Discussion:?-13: Office or other outpatient visit for the evaluation and management of an established patient, which required a medically appropriate history and/or examination and LOW level of DECISION MAKING for: 1 STABLE ACUTE UNCOMPLICATED PROBLEM, 2 OR MORE MINOR PROBLEMS, OR 1 STABLE CHRONIC PROBLEM, THAT POSE(S) A LOW RISK FOR MORBIDITY/MORTALITY. The visit on the day of the encounter encompassed interpreting the data and educating the patient as to the nature of their condition, treatment options available according to their individual PMH, meds, allergies, and overall health/living conditions, as well as any potential risks or complications that may occur from a failure to adhere to, and participate in, the recommended course of therapy. The discussion included a complete verbal, and/or written explanation of the examination results, any x-rays taken, the proposed diagnosis, and outline of the treatment plan. A schedule for future care needs was also explained. The patient verbalized an understanding of the instructions at this time and agreed to be an active participant in their treatment. If the patient should think of any questions or concerns after the visit, I have encouraged the patient to call the office.?Xerosis:?The patient was counseled on the diagnosis, potential etiologies, and treatment options for their skin condition. We discussed the risks and benefits of each option from performing no treatment, to utilizing OTC topical skin creams/ointments, to utilizing prescription topical creams/ointments, to utilizing customized compounded topical medications and use of nocturnal occlusion with any/all previously detailed therapies. We discussed the advantages and disadvantages of each possible treatment and importance for adherence to all the recommended therapies for optimum success and avoid potential complications such as open sore/infection/possible hospitalization. We discussed the potential effectiveness of each topical preparation as well as each ones possible side effects and/or patient medication interactions. Patient questions re: use, dosage, successful outcomes, and application consistency were reviewed and the patient verbalized that all answers were clearly understood. The patient has decided to apply Rx skin creams to their feet save the interspaces while paying special attention to the heels. Such was sent to their pharmacy at the time of visit.? * Follow Up:?2 Months * Images: * Sign off status: Completed Addendum: * ? true * Provider:?Jarod Boone DPM Date:?2023 Generated for Yazmin ross/Jimmie/Leonides on:?11/09/2024 06:30 PM EST History and Physical Notes * HPI (History of Present Illness) Category Sub-Category Detail Notes Category Not es Skin problems Nature: dryness , scaling Location: B/L Duration: several days Course: worse At Risk footcare Pt States Last PCP Visit: Date: 4 Examination Category Sub-Category Detail Notes Category Not es Dermatologic SKIN FINDINGS: Skin exam reveal s Keratotic lesion(s) located at, SUB MTH (s), 1, B/L , SUB MTH (s), 5, B/L , Heel(s), B/L , Skin shows sign(s) of, dryness, scaling, in a stocking fashion, no fissure(s) present, B/L Vascular DP PULSES (B): 0/4, B/L PT PULSES (B): 1/4, B/L CAPILLARY FILL TIME: delayed, all digits , B/L TEMPERTURE GRADIENT (C): decreased, cool to cool, proximal to distal, B/L TROPHIC CONDITION-TEXTURE/ELASTICITY/TURGOR/HAIR GROWTH (B): decreased, B/L EDEMA (C): absent, B/L CLAUDICATION (C): denies, B/L REST PAIN: denies, B/L PIGMENTATION: mottled, B/L Nails NAILS are: Elongated, overg rown, dystrophic, lytic, greater than 3mm thick, discolored and friable with crumbly malodorous subungual debris, with pain on palpation, 1-5 B/L
--- OUTSIDE RECORDS SUMMARY | 2024-11-09 18:31 | XMS_ITS ---
Author Organization Pedro Jasso III, MD Address [address] [place] [address] [address] [place] [address] Care Team Providers Care Plasma Table Operator Name Role Phone Nino CEBALLOS, [facility] Primary Care Provider Pedro Escalante [phone] REASON FOR VISIT Medical record request Social History Sex Assigned At : Social History Observation Description Sex Assigned At Male Encounters Encounter Location Date Provider Diagnosis Pedro Jasso III, MD [address] [place] [address] [address] [place] [address] 08/20/2023 Pedro Jasso Plan Of Treatment No Information Progress Notes * PEDERSENLawrence GodoyDOB:1950 (72 yo M)Acc No.[id number]:08/20/2023 Patient:?Lawrence Pedersen :1950???Age:72 Y???Sex:Male Address:[address] [place] [address] [address] , [place] [address] * true * Date:? Generated for Yazmin ross/Jimmie/eTransmitting on:?11/09/2024 06:31 PM EST
--- OUTSIDE RECORDS SUMMARY | 2024-11-09 18:31 | XMS_ITS ---
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 Role Phone Nino CEBALLOS, [facility] Primary Care Provider Pedro Escalante Unavailable [phone] Allergies Allergen (clinical drug ingredient) Drug/Non Drug Allergy documented on EMR Reaction Allergy Type Onset Date Status Penicillin rash Drug Allergy Active Lisinopril COUGH Drug Allergy Active aspirin Aspirin stomach upset Drug Allergy Act rachelle REASON FOR VISIT follow up Medications Medication SIG (Take, Route, Frequency, Duration) Notes Start Date End Date Status Megestrol Acetate 400 MG/10ML 10 ml Orally Twice a day 04/16/2022 Act rachelle Vitamin B 12 100 MCG Orally Active Tylenol 8 Hour 650 MG 2 tablets as neede d Orally every 8 hrs Active tiZANidine HCl 2 MG 1 tablet as needed Orally Three times a day Active Folic Acid 1 MG TAKE 1 TABLET BY BABS TH EVERY DAY Active Omeprazole 40 MG 1 capsule Orally Onc e a day Active Mirapex ER 3 MG 1 tablet Orally Once a day Active Meclizine HCl 25 MG 1 tablet as needed Orally three time a day Active Losartan Potassium 50 MG 1 tablet Orally Once a day Active Levothyroxine Sodium 88 MCG 1 tablet on an empty stomach in the morning Orally Once a day Active Ferrous Sulfate 325 (65 Fe) MG 1 tablet Orally Once a day Active DULoxetine HCl 30 MG 1 capsule Orally Tw ice a day Active CeleBREX 200 MG 1 capsule with food Orally Once a day Active Gabapentin 300 MG 1 capsule Orally Thr ee times a day Active Flovent HFA 110 MCG/ACT 2 puffs Inhalati on Twice a day Active Albuterol Sulfate 108 (90 Base) MCG/ACT 2 puffs as needed Inhalation every 6 hrs Active traMADol HCl 50 MG 1 tablet as needed Orally Once a day Active Anoro Ellipta 62.5-25 MCG/INH 1 puff Inhalation Once a day Active Social History Tobacco Use: Social History Observation Description Date Details (start date - stop date) Former Smoker NA - NA Sex Assigned At : Social History Observation Description Sex Assigned At Male Tobacco Use/Smoking Question Answer Notes Patient is a former smoker How long has it been since you last smoked? 5-10 years Additional Findings: Tobacco Non-User Ex-cigaret te smoker Encounters Encounter Location Date Provider Diagnosis Pedro Jasso III, MD [address] [place] [address] [place] [address] 07/13/2024 Pedro Jasso Neck mass R22.1 Assessments Encounter Date Diagnosis (ICD Code) Assessment Notes Treatment Notes Treatment Clinical Notes 07/13/2024 Neck mass (ICD-10 - R22.1) The soft tissue mass has resolved and a biopsy was negative. Plan Of Treatment Medication Medication Name Sig Start Date Stop Date Notes Megestrol Acetate 400 MG/10ML 10 ml Orally Twice a day 06/2022 Vitamin B 12 100 MCG Orally Tylenol 8 Hour 650 MG 2 tablets as neede d Orally every 8 hrs tiZANidine HCl 2 MG 1 tablet as needed O rally Three times a day Folic Acid 1 MG TAKE 1 TABLET BY BABS TH EVERY DAY Omeprazole 40 MG 1 capsule Orally Once a day Mirapex ER 3 MG 1 tablet Orally Once a day Meclizine HCl 25 MG 1 tablet as needed O rally three time a day Losartan Potassium 50 MG 1 tablet Orally Once a day Levothyroxine Sodium 88 MCG 1 tablet on an empty stomach in the morning Orally Once a day Ferrous Sulfate 325 (65 Fe) MG 1 tablet Orally Once a day DULoxetine HCl 30 MG 1 capsule Orally Tw ice a day CeleBREX 200 MG 1 capsule with food Orally Once a day Gabapentin 300 MG 1 capsule Orally Thr ee times a day Flovent HFA 110 MCG/ACT 2 puffs Inhalati on Twice a day Albuterol Sulfate 108 (90 Ba se) MCG/ACT 2 puffs as needed Inhalation every 6 hrs traMADol HCl 50 MG 1 tablet as needed O rally Once a day Anoro Ellipta 62.5-25 MCG/INH 1 puff Inh alation Once a day Progress Notes * Ganesh PEDERSEN:1950 (74 yo M)Acc No.[id number]:07/13/2024 Progress Notes Patient:Lawrence MARTÍNEZ Provider:?Pedro Jasso MD :1950???Age:73 Y???Sex:Male Salvador e:07/13/2024 Address:[address] [place], [place] [id number] Pcp:Tracy Oneill MD Subjective: * Chief Complaints: * ???1. Follow up. * HPI: ???COVID-19 Screening:?Questions?Have you had any new onset fever, chills, cough, congestion, sore throat, shortness of breath, muscle aches??No ?Have you been exposed to the virus within the last 10 days??No ?Have you travelled internationally in the last 10 days??No ?Have you been exposed to COVID-19 in the past??No * ROS:?General/Constitutional:?pain?only normal aches and pains.?Chills?denies.?Fatigue?admits.?Fever?denies.?ENT:?Decreased hearing?denies.?Respiratory:?Cough?denies.?Cardiovascular:?Chest pain with exertion?denies.?Dyspnea on exertion?denies.?Shortness of breath?denies.?Gastrointestinal:?Constipation?denies.?Decreased appetite?denies.?Diarrhea?denies.?Heartburn?denies.?Nausea?denies.?Rectal bleeding?denies.?Vomiting?denies.?Hematology:?bruising?denies.?petechiae?denies.?Swollen glands?none have been noted.?Genitourinary:?Frequent urination?denies.?Musculoskeletal:?Muscle aches?denies.?Painful joints?denies.?Sciatica?denies.?Weakness?denies.?Skin:?Itching?denies.?Rash?denies.?Skin lesion(s)?denies.?Neurologic:?Difficulty speaking?denies.?Dizziness?denies.?Headache?denies.?Low back pain?denies.?Psychiatric:?Depressed mood?denies.? 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 * Surgical History:?laminectom y, lumbar spine, Dr. Henderson 2002, colonoscopy, [facility], Dr. Culver 10/2001, L5-S1 fusion 02/2003, cystoscopy turp X2 08/2005, dilatation of cervical esophageal 09/2008, direct laryngoscopy with biopsy of right tonsil and panendoscopy 2003. * Hospitalization/Major Diagno stic Procedure:?throat infection 2018, Anemia 10/2021, anemia needed blood transfusion 11/25/2022, insertion of feeding tube Dr Frankel 07/2022. * Family History:?Father: dece ased, Carcinoma of the lung, diagnosed with CVD, Cancer.?Mother: alive 89 yrs, Coronary artery disease, pacemaker.? His father had a history of coronary artery disease and lung cancer with brain metastases and dementia. His mother has ischemic heart disease with a pacemaker. He is not aware of any family history of substance use disorder or mental illness. * Social History:?Tobacco Use:?Tobacco Use/Smoking?Patient is a?former smoker ?How long has it been since you last smoked??5-10 years ?Additional Findings: Tobacco Non-User?Ex-cigarette smoker ???He has a history of heavy alcohol use. He says he does not take illegal drugs. He is unmarried. He no longer smokes cigarettes. He has no recent travel. * Medications:?Taking traMADol HCl 50 MG Tablet 1 tablet as needed Orally Once a day , Taking Albuterol Sulfate 108 (90 Base) MCG/ACT Aerosol Powder Breath Activated 2 puffs as needed Inhalation every 6 hrs , Taking Anoro Ellipta 62.5-25 MCG/INH Aerosol Powder Breath Activated 1 puff Inhalation Once a day , Taking CeleBREX 200 MG Capsule 1 capsule with food Orally Once a day , Taking DULoxetine HCl 30 MG Capsule Delayed Release Particles 1 capsule Orally Twice a day , Taking Ferrous Sulfate 325 (65 Fe) MG Tablet 1 tablet Orally Once a day , Taking Flovent HFA 110 MCG/ACT Aerosol 2 puffs Inhalation Twice a day , Taking Gabapentin 300 MG Capsule 1 capsule Orally Three times a day , Taking Levothyroxine Sodium 88 MCG Tablet 1 tablet on an empty stomach in the morning Orally Once a day , Taking Losartan Potassium 50 MG Tablet 1 tablet Orally Once a day , Taking Meclizine HCl 25 MG Tablet 1 tablet as needed Orally three time a day , Taking Mirapex ER 3 MG Tablet Extended Release 24 Hour 1 tablet Orally Once a day , Taking Omeprazole 40 MG Capsule Delayed Release 1 capsule Orally Once a day , Taking tiZANidine HCl 2 MG Tablet 1 tablet as needed Orally Three times a day , Taking Tylenol 8 Hour 650 MG Tablet Extended Release 2 tablets as needed Orally every 8 hrs , Taking Vitamin B 12 100 MCG Lozenge Orally , Taking Megestrol Acetate 400 MG/10ML Suspension 10 ml Orally Twice a day , Taking Folic Acid 1 MG Tablet TAKE 1 TABLET BY MOUTH EVERY DAY , Medication List reviewed and reconciled with the patient * Allergies:?Lisinopril: COUGH , Penicillin: rash, Aspirin: stomach upset. Objective: * Vitals:? * Examination: ???General Examination: ?GENERAL APPEARANCE:?pleasant, well nourished, well developed, in no acute distress, calm and relaxed.?HEAD:?atraumatic, normocephalic.?EYES:?eomi, perrla, anicteric, conjugate.?EARS:?normal.?NOSE:?septum intact.?ORAL CAVITY:?normal, unremarkable.?NECK/THYROID:?no jugular venous distention, no carotid bruit, thyroid normal.?LYMPH NODES:?no enlarged lymph nodes,spleen normal.?SKIN:?no suspicious lesions, anicteric.?HEART:?no clicks, gallops, murmurs, or rubs, regular rhythm, S1, S2 normal, no s3, or vascular bruits.?LUNGS:?clear to auscultation .?BREASTS:??no masses palpable bilaterally.?ABDOMEN:?bowel sounds normal, no ascites, no organomegaly, no mass.?RECTAL EXAM:?not examined.?MUSCULOSKELETAL:?extremities unremarkable, no clubbing, cyanosis or edema.?PERIPHERAL PULSES:?normal.?NEUROLOGIC:?alert and oriented, cranial nerves 2-12 grossly intact, deep tendon reflexes 2+ symmetrical, motor strength normal upper and lower extremities, sensory exam intact.?PSYCH:?alert, oriented.? Assessment: * Assessment: 1.?Neck mass - R22.1???Notes :The soft tissue mass has resolved and a biopsy was negative.??? Plan: * Treatment: * Images: * The named appointment provid er may or may not be the originator of this progress note, and it is not deemed complete until electronically signed by the appointment provider. Sign off status: Pending * Provider:?Pedro Jasso MD Date:?02/2024 Generated for Yazmin ross/Jimmie/Leonides on:?11/09/2024 06:30 PM EST History and Physical Notes * HPI (History of Present Illness) Category Sub-Category Detail Notes COVID-19 Screening Questions Have you had any new onset fever, chills, cough, congestion, sore throat, shortness of breath, muscle aches?: No Have you been exposed to the virus withi n the last 10 days?: No Have you travelled internationally in [facility] last 10 days?: No Have you been exposed to COVID-19 in the past?: No Examination Category Sub-Category Detail Notes General Examination GENERAL APPEARANCE: pleasant , well nourished, well developed, in no acute distress, calm and relaxed HEAD: atraumatic, normocep halic EYES: eomi, perrla, anicte suad, conjugate EARS: normal NOSE: septum intact NECK/THYROID: no jugular venous di stention, no carotid bruit, thyroid normal HEART: no clicks, gallops, murmurs, or rubs, regular rhythm, S1, S2 normal, no s3, or vascular bruits LUNGS: clear to auscultatio n ABDOMEN: bowel sounds normal, no ascites, no organomegaly, no mass NEUROLOGIC: alert and oriented, cranial nerves 2-12 grossly intact, deep tendon reflexes 2+ symmetrical, motor strength normal upper and lower extremities, sensory exam intact SKIN: no suspicious lesion s, anicteric PERIPHERAL PULSES: normal BREASTS: no masses palpable b ilaterally MUSCULOSKELETAL: extremities unremark able, no clubbing, cyanosis or edema LYMPH NODES: no enlarged lymph no chris,spleen normal RECTAL EXAM: not examined PSYCH: alert, oriented ORAL CAVITY: normal, unremarkable
--- OUTSIDE RECORDS SUMMARY | 2024-11-09 18:31 | XMS_ITS ---
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 Back pain, Monoclonal gammopathy of uncertain significance, Weight loss and dysphagia Medications Medication SIG (Take, Route, Frequency, Duration) Notes Start Date End Date Status tiZANidine HCl 2 MG 1 tablet as needed Orally Three times a day Active Vitamin B 12 100 MCG Orally Active Tylenol 8 Hour 650 MG 2 tablets as neede d Orally every 8 hrs Active Folic Acid 1 MG TAKE 1 TABLET BY BABS EVERY DAY Active Megestrol Acetate 400 MG/10ML 10 ml Orally Twice a day 04/16/2022 Act rachelle Omeprazole 40 MG 1 capsule Orally Onc e a day Active Mirapex ER 3 MG 1 tablet Orally Once a day Active Levothyroxine Sodium 88 MCG 1 tablet on an empty stomach in the morning Orally Once a day Active Meclizine HCl 25 MG 1 tablet as needed Orally three time a day Active Losartan Potassium 50 MG 1 tablet Orally Once a day Active CeleBREX 200 MG 1 capsule with food Orally Once a day Active Gabapentin 300 MG 1 capsule Orally Thr ee times a day Active DULoxetine HCl 30 MG 1 capsule Orally Tw ice a day Active Flovent HFA 110 MCG/ACT 2 puffs Inhalati on Twice a day Active Ferrous Sulfate 325 (65 Fe) MG 1 tablet Orally Once a day Active Albuterol Sulfate 108 (90 [...] Additional Findings: Tobacco Non-User Ex-cigaret te smoker Vital Signs Temperature 98.1 degrees Fahrenheit 07/08/20 23 Blood pressure systolic 130 mm Hg 07/08/20 23 Blood pressure diastolic 60 mm Hg 023 Heart Rate 74 /min 07/08/2023 Height 67 in 07/08/2023 Weight 128 lbs 07/08/2023 BMI 20.05 kg/m2 07/08/2023 Encounters Encounter Location Date Provider Diagnosis Pedro Jasso III, MD [address] [place] [address] [place] [address] 07/08/2023 Pedro Jasso Neck mass R22.1 ; Ca ncer of pharyngeal tonsil C11.1 ; Monoclonal gammopathy present on serum protein electrophoresis D47.2 and Benign prostatic hyperplasia with lower urinary tract symptoms N40.1 Assessments Encounter Date Diagnosis (ICD Code) Assessment Notes T reatment Notes Treatment Clinical Notes 07/08/2023 Neck mass (ICD-10 - R22.1) The soft tissue mass has resolved and a biopsy was negative. 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 07/08/2023 Monoclonal gammopath y present on serum protein electrophoresis (ICD-10 - D47.2) Comprehensive blood work including electrophoresis and immunofixation and light chain studies has been ordered. Current lab values are not available. 07/08/2023 Benign prostatic hyperplasia with lower urinary tract symptoms (ICD-10 - N40.1) He rises from sleep once or twice a night. We discussed lifestyle modification using the feeding tube is way to reduce nocturnal urinating. Plan Of Treatment Medication Medication Name Sig Start Date Stop Date Notes tiZANidine HCl 2 MG 1 tablet as needed O rally Three times a day Vitamin B 12 100 MCG Orally Tylenol 8 Hour 650 MG 2 tablets as neede d Orally every 8 hrs Folic Acid 1 MG TAKE 1 TABLET BY BABS TH EVERY DAY Megestrol Acetate 400 MG/10ML 10 ml Orally Twice a day 06/2022 Omeprazole 40 MG 1 capsule Orally Once a day Mirapex ER 3 MG 1 tablet Orally Once a day Levothyroxine Sodium 88 MCG 1 tablet on an empty stomach in the morning Orally Once a day Meclizine HCl 25 MG 1 tablet as needed O rally three time a day Losartan Potassium 50 MG 1 tablet Orally Once a day CeleBREX 200 MG 1 capsule with food Orally Once a day Gabapentin 300 MG 1 capsule Orally Thr ee times a day DULoxetine HCl 30 MG 1 capsule Orally Tw ice a day Flovent HFA 110 MCG/ACT 2 puffs Inhalati on Twice a day Ferrous Sulfate 325 (65 Fe) MG 1 tablet Orally Once a day Albuterol Sulfate 108 (90 Ba se) MCG/ACT 2 puffs as needed Inhalation every 6 hrs traMADol HCl 50 MG 1 tablet as needed O rally Once a day Anoro Ellipta 62.5-25 MCG/INH 1 puff Inh alation Once a day Pending Test Test Name Order Date PROFILE, RANDOM (COMPREHENSIVE METABOLIC ) 07/08/2023 PSA, TOTAL 07/08/2023 CBC w DIFF 07/08/2023 IMMUNOFIXATION PANEL, SERUM (IEP) 2022 PROTEIN ELECTROPHORESIS, SERUM 3 FREE KAPPA LAMBDA, SERUM K/L RATIO 07/08 KAPPA LAMBDA SER 07/08/2023 Next Appt Details Follow Up: 1 Year, Reason: o v review labs Progress Notes * PEDERSEN, LawrenceDOB:1950 (72 yo M)Acc No.[id number]:07/08/2023 Progress Notes Patient:?Lawrence Pedersen Provider:?Pedro Jasso MD :1950???Age:72 Y???Sex:Male Salvador e:07/08/2023 Address:[address] [place], [place] [id number] Pcp:Tracy Oneill MD Subjective: * Chief Complaints: * ???History of head and neck cancerTrismusMajor depressive disorderGERDBarrett's esophagitisL4-5. Back painMonoclonal gammopathy of uncertain significanceWeight loss and dysphagia * HPI: ???COVID-19 Screening:?Questions?Have you experienced fever, chills, cough, sore throat, shortness of breath, difficulty breathing, muscle aches, loss of taste or smell??No ?Have you been exposed to the virus within the last 10 days??No ?Have you travelled internationally in the last 10 days??No ?Have you been exposed to COVID-19 in the past??No ? He returns for follow-up of his head and neck cancer. He has been to [facility] and discuss major surgery to relieve the trismus. He has decided against it. No oral cancer was found today. There is no sign of recurrent disease or new primary. He has a feeding tube for nutrition because he cannot swallow. Calories adequately. He says he has no difficulty utilizing a feeding tube. His examination was otherwise unremarkable. His depression is stable and he says he does not feel suicidal. Since November of this year. He has had images. His esophaggus was dilated on a CT angiogram of the chest and upper endoscopy done that showed no malignancy. A feeding tube was inserted. CT scanning of the chest showed a right middle lobe nodule. He has developed a soft tissue mass in the neck, thought to be fluid which was not apparent on today's examination. Images will be reviewed in detail.A biopsy of this mass January 19, 2023 showed no sign of malignancy, but was consistent with abscess formation. * ROS:?General/Constitutional:?pain?only normal aches and pains.?Chills?denies.?Fatigue?admits.?Fever?denies.?ENT:?Decreased hearing?mild.?Respiratory:?Cough?denies.?Cardiovascular:?Chest pain with exertion?denies.?Dyspnea on exertion?denies.?Shortness of breath?denies.?Gastrointestinal:?Constipation?occasional.?Decreased appetite?that is associated with weight loss.?Diarrhea?denies.?Heartburn?denies.?Nausea?denies.?Rectal bleeding?denies.?Vomiting?denies.?Hematology:?bruising?denies.?petechiae?denies.?Swollen glands?none have been noted.?Genitourinary:?Frequent urination?denies.?Musculoskeletal:?Muscle aches?denies.?Painful joints?Temporomandibular joints.?Sciatica?denies.?Weakness?denies.?Skin:?Itching?denies.?Rash?denies.?Skin lesion(s)?denies.?Neurologic:?Difficulty speaking?denies.?Dizziness?denies.?Headache?denies.?Low back pain?denies.?Psychiatric:?Depressed mood?which is moderate.? * Medical History:? * Surgical History:?laminectom y, lumbar spine, Dr. Henderson 2002colonoscopy, [facility], Dr. Culver [id number] fusion 02/2003cystoscopy turp X2 08/2005dilatation of cervical esophageal 09/2008direct laryngoscopy with biopsy of right tonsil and panendoscopy 2003 * Hospitalization/Major Diagno stic Procedure:?throat infection 2019Anemia nemia needed blood transfusion 11/25/2022insertion of feeding tube Dr Frankel 07/2022 * Family History:?Father: dece ased, Carcinoma of [...] cigarettes. He has no recent travel. * Medications:?UnknowntraMADol HCl 50 MG Tablet 1 tablet as needed Orally Once a dayAlbuterol Sulfate 108 (90 Base) MCG/ACT Aerosol Powder Breath Activated 2 puffs as needed Inhalation every 6 hrsAnoro Ellipta 62.5-25 MCG/INH Aerosol Powder Breath Activated 1 puff Inhalation Once a dayCeleBREX 200 MG Capsule 1 capsule with food Orally Once a dayDULoxetine HCl 30 MG Capsule Delayed Release Particles 1 capsule Orally Twice a dayFerrous Sulfate 325 (65 Fe) MG Tablet 1 tablet Orally Once a dayFlovent HFA 110 MCG/ACT Aerosol 2 puffs Inhalation Twice a dayGabapentin 300 MG Capsule 1 capsule Orally Three times a dayLevothyroxine Sodium 88 MCG Tablet 1 tablet on an empty stomach in the morning Orally Once a dayLosartan Potassium 50 MG Tablet 1 tablet Orally Once a dayMeclizine HCl 25 MG Tablet 1 tablet as needed Orally three time a dayMirapex ER 3 MG Tablet Extended Release 24 Hour 1 tablet Orally Once a dayOmeprazole 40 MG Capsule Delayed Release 1 capsule Orally Once a daytiZANidine HCl 2 MG Tablet 1 tablet as needed Orally Three times a dayTylenol 8 Hour 650 MG Tablet Extended Release 2 tablets as needed Orally every 8 hrsVitamin B 12 100 MCG Lozenge Orally Megestrol Acetate 400 MG/10ML Suspension 10 ml Orally Twice a dayFolic Acid 1 MG Tablet TAKE 1 TABLET BY MOUTH EVERY DAY Medication List reviewed and reconciled with the patientUnknown traMADol HCl 50 MG Tablet 1 tablet as needed Orally Once a dayUnknown Albuterol Sulfate 108 (90 Base) MCG/ACT Aerosol Powder Breath Activated 2 puffs as needed Inhalation every 6 hrsUnknown Anoro Ellipta 62.5-25 MCG/INH Aerosol Powder Breath Activated 1 puff Inhalation Once a dayUnknown CeleBREX 200 MG Capsule 1 capsule with food Orally Once a dayUnknown DULoxetine HCl 30 MG Capsule Delayed Release Particles 1 capsule Orally Twice a dayUnknown Ferrous Sulfate 325 (65 Fe) MG Tablet 1 tablet Orally Once a dayUnknown Flovent HFA 110 MCG/ACT Aerosol 2 puffs Inhalation Twice a dayUnknown Gabapentin 300 MG Capsule 1 capsule Orally Three times a dayUnknown Levothyroxine Sodium 88 MCG Tablet 1 tablet on an empty stomach in the morning Orally Once a dayUnknown Losartan Potassium 50 MG Tablet 1 tablet Orally Once a dayUnknown Meclizine HCl 25 MG Tablet 1 tablet as needed Orally three time a dayUnknown Mirapex ER 3 MG Tablet Extended Release 24 Hour 1 tablet Orally Once a dayUnknown Omeprazole 40 MG Capsule Delayed Release 1 capsule Orally Once a dayUnknown tiZANidine HCl 2 MG Tablet 1 tablet as needed Orally Three times a dayUnknown Tylenol 8 Hour 650 MG Tablet Extended Release 2 tablets as needed Orally every 8 hrsUnknown Vitamin B 12 100 MCG Lozenge Orally Unknown Megestrol Acetate 400 MG/10ML Suspension 10 ml Orally Twice a dayUnknown Folic Acid 1 MG Tablet TAKE 1 TABLET BY MOUTH EVERY DAY Medication List reviewed and reconciled with the patient * Allergies:?Lisinopril: COUGH Penicillin: rashAspirin: stomach upsetno[Allergies Verified] Objective: * Vitals:?Ht: 67, Wt:128, BMI: 20.05, BP:130/60, HR:74, Temp:98.1, Wt-k.06. * Examination: ???General Examination: ?GENERAL APPEARANCE:?pleasant, well nourished, well developed, in no acute distress, calm and relaxed , man.?HEAD:?atraumatic, normocephalic.?EYES:?eomi, perrla, anicteric, conjugate.?EARS:?normal.?NOSE:?septum intact.?ORAL CAVITY:?Edentulous, dry, no neoplastic lesions seen, marked trismus.?NECK/THYROID:?no jugular venous distention, no carotid bruit, thyroid normal, Marked radiation fibrosis both sides of neck, previously noted soft tissue mass left neck Not present.?LYMPH NODES:?no enlarged lymph nodes,spleen normal.?SKIN:?no suspicious lesions, anicteric.?HEART:?no clicks, gallops, murmurs, or rubs, regular rhythm, S1, S2 normal, no s3, or vascular bruits.?LUNGS:?, diminished breath sounds throughout , no wheezes, rales, rhonchi , good air movement.?BREASTS:??no masses palpable bilaterally.?ABDOMEN:?bowel sounds normal, no ascites, no organomegaly, no mass.?RECTAL EXAM:?not examined.?MUSCULOSKELETAL:?extremities unremarkable, no clubbing, cyanosis or edema.?PERIPHERAL PULSES:?normal.?NEUROLOGIC:?alert and oriented, cranial nerves 2-12 grossly intact, deep tendon reflexes 2+ symmetrical, motor strength normal upper and lower extremities, sensory exam intact.?PSYCH:?alert, oriented , anxious appearing , mood depressed.? 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 Current lab values are not available.?4.?Benign prostatic hyperplasia with lower urinary tract symptoms - N40.1, He rises from sleep once or twice a night. We discussed lifestyle modification using the feeding tube is way to reduce nocturnal urinating.? Plan: * Treatment: 2.?Cancer of pharyngeal tons il?LAB: PROFILE, RANDOM (COMPREHENSIVE METABOLIC) ?LAB: PSA, TOTAL ?LAB: CBC w DIFF ?LAB: IMMUNOFIXATION PANEL, SERUM (IEP) ?LAB: PROTEIN ELECTROPHORESIS, SERUM ?LAB: FREE KAPPA LAMBDA, SERUM K/L RATIO ?LAB: KAPPA LAMBDA SER 3.?Monoclonal gammopathy pre sent on serum protein electrophoresis?LAB: PROFILE, RANDOM (COMPREHENSIVE METABOLIC) ?LAB: PSA, TOTAL ?LAB: CBC w DIFF ?LAB: IMMUNOFIXATION PANEL, SERUM (IEP) ?LAB: PROTEIN ELECTROPHORESIS, SERUM ?LAB: FREE KAPPA LAMBDA, SERUM K/L RATIO ?LAB: KAPPA LAMBDA SER 4.?Benign prostatic hyperpla adilson with lower urinary tract symptoms?LAB: PROFILE, RANDOM (COMPREHENSIVE METABOLIC) ?LAB: PSA, TOTAL ?LAB: CBC w DIFF ?LAB: IMMUNOFIXATION PANEL, SERUM (IEP) ?LAB: PROTEIN ELECTROPHORESIS, SERUM ?LAB: FREE KAPPA LAMBDA, SERUM K/L RATIO ?LAB: KAPPA LAMBDA SER * Procedure Codes:? * Preventive Medicine:? ??Counseling:?Smoking/Tobacco Use?Patient counseled on the dangers of tobacco use and urged to quit.?07/08/2023 * Follow Up:?1 Year (Reason: o v review labs ) * Images: * Sign off status: Completed true * Provider:?Pedro Jasso MD Date:?09/2022 Generated for Yazmin ross/Jimmie/Leonides on:?11/09/2024 06:31 PM EST History and Physical Notes * HPI (History of Present Illness) Category Sub-Category Detail Notes COVID-19 Screening Questions Have you had any new onset fever, chills, cough, congestion, sore throat, shortness of breath, muscle aches?: No Have you been exposed to the virus withi n the last 10 days?: No Have you travelled internationally in e last 10 days?: No Have you been exposed to COVID-19 in the past?: No Examination Category Sub-Category Detail Notes General Examination GENERAL APPEARANCE: pleasant , well nourished, well developed, in no acute distress, calm and relaxed , man HEAD: atraumatic, normocep halic EYES: eomi, perrla, anicte suad, conjugate EARS: normal NOSE: septum intact NECK/THYROID: no jugular venous di stention, no carotid bruit, thyroid normal, Marked radiation fibrosis both sides of neck, previously noted soft tissue mass left neck Not present HEART: no clicks, gallops, murmurs, or rubs, regular rhythm, S1, S2 normal, no s3, or vascular bruits LUNGS: , diminished breath sounds throughout , no wheezes, rales, rhonchi , good air movement ABDOMEN: bowel sounds normal, no ascites, no [...] RECTAL EXAM: not examined PSYCH: alert, oriented , an xious appearing , mood depressed ORAL CAVITY: Edentulous, dry, no neoplastic lesions seen, marked trismus
--- OUTSIDE RECORDS SUMMARY | 2024-11-09 18:31 | XMS_ITS | Patient Health Record ---
Author Organization [facility] Address [address] [place] [address] Care Team Providers Care Sales And Service Officer Name Role Phone Tracy Oneill Primary Care Provider Unavailab Jarod Davis Unavailable [phone] Allergies Allergen (clinical drug ingredient) Drug/Non Drug Allergy documented on EMR Reaction Allergy Type Onset Date Status aspirin Aspirin Unknown Drug Allergy Active Penicillin Unknown Drug Allergy Active Reason For Referral No Information Medications Medication SIG (Take, Route, Frequency, Duration) Notes Start Date End Date Status Omeprazole 40 MG TK 1 C PO D Oral for 90 Active ProAir HFA 108 (90 Base) MCG/ACT INL 2 PUFFS PO QID PRF ASTHMA Inhalation for 16 Active Levothyroxine Sodium 88 MCG TK 1 T PO D Oral for 90 Acti ve Meclizine HCl 12.5 MG TK 1 T PO TID PRF DIZZINESS Oral for 33 Active Simvastatin 40 MG TK 1 T PO HS Oral fo r 90 Active Triamcinolone Acetonide 0.5 % JIMI EXT AA BID External for 28 Active Pramipexole Dihydrochloride ER 3 MG TK 1 T PO HS Oral for 90 Active Qvar 80 MCG/ACT INL 1 PUFF PO BID Inhalation for 30 Active tiZANidine HCl 2 MG TK 1 C PO TID Oral f or 30 Active Vitamin B-12 1000 MCG TK 1 T PO D Oral for 90 Active Arthritis Pain Relief 650 MG TK 1 T PO TID Oral for 30 Active Ammonium Lactate 12 % 1 application to affected area Externally Twice a day to dry areas of skin on feet for 30 days Active Azithromycin 250 MG Oral for 5 Not-Taking Multi-Vitamins - TK 1 T PO QD Oral fo r 90 Active Orthopedic Extra Depth Shoes With Custom Heat Molded Multidensity Innersoles 1 Pair shoes with 3 Pair custom heat molded innersoles Wear Daily for 365 days Active DULoxetine HCl 60 MG TK 1 C PO QD WITH 3 0 MG C Oral for 90 Active Loratadine 10 MG TK 1 T PO D Oral for 30 Not-Taking Diclofenac Sodium 75 MG TK 1 T PO BID Or al for 30 Active Fluvirin - ADM 0.5ML IM UTD Intramuscular for 1 Not-Taking Tamsulosin HCl 0.4 MG TK 1 C PO HS Oral for 90 Not-Taking Artificial Tears 1-0.3 % INSTILL 1 DROP IN BOTH EYES QID AND Q 2 H PRN FOR IRRATATION Ophthalmic for 13 Active Butrans 10 MCG/HR (Schedule III Drug) JIMI 1 PATCH TO THE SKIN ONCE A WEEK FOR 2 WEEKS THEN U 2 PATCHES FOR 1 WEEK Transdermal for 21 Not-Taki ng Gabapentin 300 MG TK 1 C PO TID Oral f or 90 Active Ferrous Sulfate 325 (65 Fe) MG TK 1 T PO QD Oral for 90 Active Belbuca 150 MCG (Schedule III Drug) DISSOLVE 1 FILM UNDER THE TONGUE BID Buccal for 30 Not-Taking Fluticasone Propionate 50 MCG/ACT U 1 SPRAY IN EACH NOSTRIL BID Nasal for 30 Active Immunizations Vaccine Route Administration Date Status Comme nts Influenza Unknown 08/04/2018 Administered Influenza Unknown 07/02/2019 Administered Social History Tobacco Use: Social History Observation Description Date Details (start date - stop date) Never Smoker NA - NA Alcohol Screen Question Answer Notes Did you have a drink containing alcohol in the p ast year? No Points 0 Interpretation Negative Tobacco use other than smoking: Question Answer Notes Are you an other tobacco user? No Tobacco Control (Standard) Question Answer Notes Tobacco use: Nonsmoker Additional Findings: Tobacco non-user Current no nsmoker Problems Problem Type SNOMED Code ICD Code Onset Dates Problem Status W/U Status Risk Notes Problem Acquired hammer toe of right foot (9862203949060142 ) Other hammer toe(s) (acquired), right foot (M20.41) Active confirmed Response to treatment, Improvemen t Problem Acquired hammer toe of left foot (6978993862490688 ) Other hammer toe(s) (acquired), left foot (M20.42) Active confirmed Response to treatment, Improvemen t Problem Atherosclerosis of morongo arteries of the extremities (588912265740548) Atherosclerosis of morongo artery of both lower extremities, with unspecified presence of clinical manifestation (I70.203) Active confirmed Vital Signs Blood pressure diastolic 69 mm Hg 09/19/2024 Height 5ft 7in in 09/19/2024 Blood pressure systolic 125 mm Hg 09/19/2024 Weight 135 lbs 09/19/2024 BMI 21.14 kg/m2 09/19/2024 Procedures Procedure Date Ordered Date Performed Result Body Sit e 09100-PXELFEN NAIL, 6 OR MORE 11/11/2023 N/A 81004-JJIH SKIN LESIONS, OVER 4 11/11/2023 N/A 02651-GDRZHEU NAIL, 6 OR MORE 01/14/2024 N/A 57372-AZGN SKIN LESIONS, OVER 4 01/14/2024 N/A 73741-SPAZDBB NAIL, 6 OR MORE 03/24/2024 N/A 13063-XECT SKIN LESIONS, OVER 4 03/24/2024 N/A 21770-XKJHOER NAIL, 6 OR MORE 06/09/2024 N/A 70108-XOND SKIN LESIONS, OVER 4 06/09/2024 N/A 40746-MPLEEYM NAIL, 6 OR MORE 09/19/2024 N/A 77934-MDUV SKIN LESIONS, OVER 4 09/19/2024 N/A Encounters Encounter Location Date Provider Diagnosis [address] [address] 11/11/2023 Jarod Boone Atherosclerosis of morongo artery of both lower extremities, with unspecified presence of clinical manifestation I70.203 ; Tinea unguium B35.1 ; Pain in right toe(s) M79.674 ; Pain in left toe(s) M79.675 ; Other hammer toe(s) (acquired), right foot M20.41 and Other hammer toe(s) (acquired), left foot M20.[address] [address] 01/14/2024 Jarod Boone Atherosclerosis of morongo artery of both lower extremities, with unspecified presence of clinical manifestation I70.203 ; Tinea unguium B35.1 ; Pain in right toe(s) M79.674 and Pain in left toe(s) M79.[address] [address] 03/24/2024 Jarod Boone Atherosclerosis of morongo artery of both lower extremities, with unspecified presence of clinical manifestation I70.203 ; Tinea unguium B35.1 ; Pain in right toe(s) M79.674 ; Pain in left toe(s) M79.675 and Xerosis of skin L85.[address] [address] 06/09/2024 Jarod Boone Atherosclerosis of morongo artery of both lower extremities, with unspecified presence of clinical manifestation I70.203 ; Tinea unguium B35.1 ; Pain in right toe(s) M79.674 ; Pain in left toe(s) M79.675 and Xerosis of skin L85.[address] [address] 09/19/2024 Jarod Boone Atherosclerosis of morongo artery of both lower extremities, with unspecified presence of clinical manifestation I70.203 ; Tinea unguium B35.1 ; Pain in right toe(s) M79.674 ; Pain in left toe(s) M79.675 ; Other hammer toe(s) (acquired), right foot M20.41 and Other hammer toe(s) (acquired), left foot M20.42 Assessments Encounter Date Diagnosis (ICD Code) Assessment Notes Treatment Notes Treatment Clinical Notes Section Notes 11/11/2023 Tinea unguium (ICD-10 - B35.1) 11/11/2023 Atherosclerosis of morongo artery of both lower extremities, with unspecified presence of clinical manifestation (ICD-10 - I70.203) 01/14/2024 Tinea unguium (ICD-10 - B35.1) 01/14/2024 Atherosclerosis of morongo artery of both lower extremities, with unspecified presence of clinical manifestation (ICD-10 - I70.203) 03/24/2024 Tinea unguium (ICD-10 - B35.1) 03/24/2024 Atherosclerosis of morongo artery of both lower extremities, with unspecified presence of clinical manifestation (ICD-10 - I70.203) 06/09/2024 Tinea unguium (ICD-10 - B35.1) 06/09/2024 Atherosclerosis of morongo artery of both lower extremities, with unspecified presence of clinical manifestation (ICD-10 - I70.203) 09/19/2024 Tinea unguium (ICD-10 - B35.1) 09/19/2024 Atherosclerosis of morongo artery of both lower extremities, with unspecified presence of clinical manifestation (ICD-10 - I70.203) 01/14/2024 Pain in right toe(s) (ICD-10 - M79.674) 09/19/2024 Pain in right toe(s) (ICD-10 - M79.674) 06/09/2024 Pain in right toe(s) (ICD-10 - M79.674) 03/24/2024 Pain in right toe(s) (ICD-10 - M79.674) 11/11/2023 Pain in right toe(s) (ICD-10 - M79.674) 11/11/2023 Pain in left toe(s) (ICD-10 - M79.675) 03/24/2024 Pain in left toe(s) (ICD-10 - M79.675) 01/14/2024 Pain in left toe(s) (ICD-10 - M79.675) 06/09/2024 Pain in left toe(s) (ICD-10 - M79.675) 09/19/2024 Pain in left toe(s) (ICD-10 - M79.675) 03/24/2024 Xerosis of skin (ICD-10 - L85.3) 06/09/2024 Xerosis of skin (ICD-10 - L85.3) 09/19/2024 Other hammer toe(s) (acquired), right foot (ICD-10 - M20.41) 11/11/2023 Other hammer toe(s) (acquired), right foot (ICD-10 - M20.41) Response to treatment,Impr ovement 11/11/2023 Other hammer toe(s) (acquired), left foot (ICD-10 - M20.42) Response to treatment,Impr ovement 09/19/2024 Other hammer toe(s) (acquired), left foot (ICD-10 - M20.42) Plan Of Treatment Pending Test Test Name Order Date 73174-MWQOGKC NAIL, 6 OR MORE 08/20/2016 55904-GKPVMHL NAIL, 6 OR MORE 10/29/2016 57772-EOMMESA NAIL, 6 OR MORE 01/07/2017 84125-LSRBOEB NAIL, 6 OR MORE 03/18/2017 40243-TFGHWOT NAIL, 6 OR MORE 05/20/2017 22772-URQNKDS NAIL, 6 OR MORE 08/05/2017 36517-RYCWRLH NAIL, 6 OR MORE 10/14/2017 44656-QCOCSPM NAIL, 6 OR MORE 12/21/2017 61107-UXRSVBQ NAIL, 6 OR MORE 03/11/2018 81218-JSFJKSQ NAIL, 6 OR MORE 05/24/2018 46801-GORCYIY NAIL, 6 OR MORE 08/04/2018 57664-XFXMXNM NAIL, 6 OR MORE 10/28/2018 82408-CSRFULA NAIL, 6 OR MORE 12/29/2018 26381-VATZXWO NAIL, 6 OR MORE 03/03/2019 14750-ZZWIFFW NAIL, 6 OR MORE 06/02/2019 24830-CYASIUO NAIL, 6 OR MORE 08/18/2019 38606-LJTVVSP NAIL, 6 OR MORE 10/31/2019 75291-AJNOWPD NAIL, 6 OR MORE 01/11/2020 43312-SIJWBON NAIL, 6 OR MORE 05/03/2020 25874-FZNTJFK NAIL, 6 OR MORE 09/20/2020 92100-PMYIRTU NAIL, 6 OR MORE 11/29/2020 31230-BJKBNLY NAIL, 6 OR MORE 02/13/2021 05132-YAUFXZV NAIL, 6 OR MORE 04/18/2021 04191-GSCBHXY NAIL, 6 OR MORE 07/04/2021 08341-KHTVHMO NAIL, 6 OR MORE 10/31/2021 91945-VAWIKIU NAIL, 6 OR MORE 01/13/2022 90167-RWXFTEY NAIL, 6 OR MORE 03/27/2022 93488-ISRUEAU NAIL, 6 OR MORE 06/05/2022 55147-ZEGOVNH NAIL, 6 OR MORE 08/20/2022 57458-EWOVDJE NAIL, 6 OR MORE 10/30/2022 35244-MTHSYFT NAIL, 6 OR MORE 01/08/2023 54300-WIVDZKI NAIL, 6 OR MORE 06/11/2023 33056-ERGJBSF NAIL, 6 OR MORE 08/26/2023 65525-AKZKFMP NAIL, 6 OR MORE 11/11/2023 75482-FCDYSNZ NAIL, 6 OR MORE 01/14/2024 20778-BDWTRBZ NAIL, 6 OR MORE 03/24/2024 41384-MSAPINU NAIL, 6 OR MORE 06/09/2024 88658-IBDKDYR NAIL, 6 OR MORE 09/19/2024 61366-Yawv Destruction, 09-2001/08/2023 31393-Svbe Destruction, 09-2010/30/2022 18549-Niuk Destruction, 09-2008/20/2022 04373-Zcdc Destruction, 09-2006/05/2022 85115-Nptr Destruction, 09-2003/27/2022 67257-Qzvf Destruction, 09-2001/13/2022 89042-Cban Destruction, 09-2010/31/2021 52286-Wgwz Destruction, 09-2007/04/2021 89786-Jhas Destruction, 09-2004/18/2021 72824-Cdoc Destruction, 09-2002/13/2021 44990-Bnnk Destruction, 09-2011/29/2020 10825-Xgcv Destruction, 09-2009/20/2020 60593-Wuww Destruction, 09-2005/03/2020 27315-Nlkf Destruction, 09-2001/11/2020 53966-Gnxw Destruction, 09-2010/31/2019 69622-Ietb Destruction, 09-2008/18/2019 14077-Czep Destruction, 09-2006/02/2019 11532-Qxal Destruction, 09-2003/03/2019 36963-Eszv Destruction, 09-2012/29/2018 46117-Uqlm Destruction, 09-2010/28/2018 17776-Fqaz Destruction, 09-2008/04/2018 91031-Jcag Destruction, 09-2005/24/2018 68776-Dilp Destruction, 09-2003/11/2018 06039-Mvpk Destruction, 09-2012/21/2017 54848-Qyyw Destruction, 09-2010/14/2017 39673-Pbpg Destruction, 09-2008/05/2017 70590-Mpfl Destruction, 1-05/20/2017 34678-Vgpq Destruction, -03/18/2017 72584-Qbwc Destruction, -10/29/2016 88714-Lmyy Destruction, 09-2001/07/2017 90426-Vgqd Destruction, -08/20/2016 74310-FUUE SKIN LESIONS, OVER 4 10/30/19 23 14881-URVY SKIN LESIONS, OVER 4 01/09/20 23 33704-DYJJ SKIN LESIONS, OVER 4 08/26/20 23 85722-UIYC SKIN LESIONS, OVER 4 06/11/20 23 42088-DHDM SKIN LESIONS, OVER 4 09/19/19 25 72067-IAYF SKIN LESIONS, OVER 4 06/09/20 24 44301-IPEP SKIN LESIONS, OVER 4 03/24/20 24 48807-NZAZ SKIN LESIONS, OVER 4 01/14/20 24 78889-KNOZ SKIN LESIONS, OVER 4 11/11/19 24 Next Appt Details Provider Name:Jarod Boone , 12/15/2024 01:45:00 PM, [address] [facility], [facility] [address], [place], [address], Insurance Providers Payer Name Payer Address Payer Phone Subscriber Number Group Number Insured Name Patient Relationship to Insured Coverage Start Date Coverage End Date [facility] [employer] Claims [address] [place] [address] [id number] Lawrence Pedersen Self - patient is the insured Medical (General) History Medical History History ICD Code Anemia Arthritis Back,Hip,and Knee pain Depression Glaucoma Reflux chronic sinusitis throat cancer Thyroid Cholesterol Surgical History Surgery Date(Month/Year) lower back surgery throat surgery Hospitalization History Reason Date(Month/Year) [facility]- a week stay, anemia, blood transfus ion 05/2023 [facility]- blood pressure, anemia 07/2022 [facility], anemia 10/29 [facility]- low blood pressure 05/2021
[2024-11-09 18:32] LABS: Vitamin B12 1342 pg/mL (200-900)
--- OUTSIDE RECORDS SUMMARY | 2024-11-09 18:32 | XMS_ITS | Clinical Summary ---
[facility] Address [address] [place] [address] Care Team Providers Care Hydraulic Design Engineer Name Role Phone Unavailable Primary Care Provider Unavailabl e Surgical History Surgery Date Site/Laterality Comments BACK SURGERY 02/2003 PROCEDURE: HISTORICAL BACK SURGERY; COMMENT: Lumbar Fusion, Dr. Henderson TURP / TRANSURETHRAL INCISIO N / DRAINAGE PROSTATE PROCEDURE: HISTORICAL TURP; COMMENT: x2: 08/2005, 09/2008 OTHER SURGICAL HISTORY PROCEDURE: [place] EGD DILATION GASTRIC/DUODENAL STRICTURE; COMMENT: Esophageal, x3 Medical History Medical History Date Comments Facial cellulitis 12/06/2021 DX:Facial cell ulitis COPD (chronic obstructive pu lmonary disease) ([facility]) DX:COPD (chronic obstructive pulmonary disease) ([facility]) Aortic stenosis DX:Aortic stenos is Coronary stenosis DX:Coronary st enosis BPH (benign prostatic hyperplasia) DX:BPH (benign prostatic hyperplasia) Lumbar spondylosis DX:Lumbar spo ndylosis Cancer of tonsil ([facility]) DX:Ca ncer of tonsil ([facility]); COMMENT: Malignant neoplasm of pharynx, status post surgery Depression DX:Depression Hyperlipidemia DX:Hyperlipidemi a Hypothyroidism DX:Hypothyroidis m Joyner's esophagus DX:Joyner's esophagus Hiatal hernia DX:Hiatal hernia Ascending aortic aneurysm ([facility]) DX:Ascending aortic aneurysm ([facility]) Social History Tobacco Use Types Packs/Day Years Used Date Smoking Tobacco: Never Assessed Sex and Gender Information Value Date Recorded Sex Assigned at Not on file Legal Sex Male 4:32 AM EST Gender Identity Not on file Sexual Orientation [...] of 3) 11/26/2015 016, 07/06/2012 Pneumococcal Vaccine: 50+ Years (2 of 2 - PPSV23) 10/01/2016 10/01/2015 Abdominal Aortic Aneurysm (AAA) Screen 08/10/2022 Cholesterol Screening (Lipid Panel) 08/10/2022 Colorectal Cancer Screening: Colonoscopy 08/10/2022 Depression Screening 08/10/2022 Falls Risk Assessment 08/10/2022 Hepatitis C Screening 08/10/2022 Social Influencers of Health Screening 08/10/2022 COVID-19 Vaccine (4 - 2023-2 5 season) 2024 03/20/2021, 01/04/2021, 12/07/2020 Influenza Vaccine (#1) 2024 , 06/09/2017, 04/15/2016 RSV Immunization Patients 60 + [...] patient's age to complete this topic Meningococcal B Vacine Aged Out No lo nger eligible based on patient's age to complete this topic RSV Immunization Patients Under 20 months Aged Out No longer eligible b ased on patient's age to complete this topic Varicella Vaccines Aged Out No longer eligible based on patient's age to complete this topic
--- OUTSIDE RECORDS SUMMARY | 2024-11-09 18:32 | XMS_ITS ---
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 Name Role Phone Nino Tracy Primary Care Provider Unavailab Jarod Davis Unavailable [phone] Allergies Allergen (clinical drug ingredient) Drug/Non Drug Allergy documented on EMR Reaction Allergy Type Onset Date Status aspirin Aspirin Unknown Drug Allergy Active Penicillin Unknown Drug Allergy Active REASON FOR VISIT At Risk Footcare, Painful Nail(s) aggrevated by shoes and causing difficulty standing/walking., ToeIrritation Medications Medication SIG (Take, Route, Frequency, Duration) Notes Start Date End Date Status Orthopedic Extra Depth Shoes With Custom Heat Molded Multidensity Innersoles 1 Pair shoes with 3 Pair custom heat molded innersoles Wear Daily for 365 days Active Loratadine 10 MG TK 1 T PO D Oral for 30 Not-Taking Fluvirin - ADM 0.5ML IM UTD Intramuscular for 1 Not-Taking Butrans 10 MCG/HR (Schedule III Drug) JIMI 1 PATCH TO THE SKIN ONCE A WEEK FOR 2 WEEKS THEN U 2 PATCHES FOR 1 WEEK Transdermal for 21 Not-Taki ng Belbuca 150 MCG (Schedule III Drug) DISSOLVE 1 FILM UNDER THE TONGUE BID Buccal for 30 Not-Taking Arthritis Pain Relief 650 MG TK 1 T PO TID Oral for 30 Active Ammonium Lactate 12 % 1 application to affected area Externally Twice a day to dry areas of skin on feet for 30 days Active Azithromycin 250 MG Oral for 5 Not-Taking Multi-Vitamins - TK 1 T PO QD Oral fo r 90 Active Tamsulosin HCl 0.4 MG TK 1 C PO HS Oral for 90 Not-Taking Simvastatin 40 MG TK 1 T PO HS Oral fo r 90 Active Triamcinolone Acetonide 0.5 % JIMI EXT AA BID External for 28 Active Qvar 80 MCG/ACT INL 1 PUFF PO BID Inhalation for 30 Active tiZANidine HCl 2 MG TK 1 C PO TID Oral f or 30 Active Vitamin B-12 1000 MCG TK 1 T PO D Oral for 90 Active Omeprazole 40 MG TK 1 C PO D Oral for 90 Active ProAir HFA 108 (90 Base) MCG/ACT INL 2 PUFFS PO QID PRF ASTHMA Inhalation for 16 Active Levothyroxine Sodium 88 MCG TK 1 T PO D Oral for 90 Acti ve Meclizine HCl 12.5 MG TK 1 T PO TID PRF DIZZINESS Oral for 33 Active Pramipexole Dihydrochloride ER 3 MG TK 1 T PO HS Oral for 90 Active DULoxetine HCl 60 MG TK 1 C PO QD WITH 3 0 MG C Oral for 90 Active Diclofenac Sodium 75 MG TK 1 T PO BID Or al for 30 Active Gabapentin 300 MG TK 1 C PO TID Oral f or 90 Active Ferrous Sulfate 325 (65 Fe) MG TK 1 T PO QD Oral for 90 Active Fluticasone Propionate 50 MCG/ACT U 1 SPRAY IN EACH NOSTRIL BID Nasal for 30 Active Artificial Tears 1-0.3 % INSTILL 1 DROP IN BOTH EYES QID AND Q 2 H PRN FOR IRRATATION Ophthalmic for 13 Active Social History Tobacco Use: Social History [...] Additional Findings: Tobacco non-user Current no nsmoker Vital Signs Height 5ft 7in in 09/19/2024 Weight 135 lbs 09/19/2024 BMI 21.14 kg/m2 09/19/2024 Blood pressure systolic 125 mm Hg 09/19/19 25 Blood pressure diastolic 69 mm Hg 025 Procedures Procedure Date Ordered Date Performed Result Body Sit e 88517-PLPIKPB NAIL, 6 OR MORE 09/19/2024 N/A 44724-KKOK SKIN LESIONS, OVER 4 09/19/2024 N/A Encounters Encounter Location Date Provider Diagnosis [facility] [address] [place] [id number] 09/19/2024 Jarod Boone Atherosclerosis of [place] artery of both lower extremities, with unspecified presence of clinical manifestation I70.203 ; Tinea unguium B35.1 ; Pain in right toe(s) M79.674 ; Pain in left toe(s) M79.675 ; Other hammer toe(s) (acquired), right foot M20.41 and Other hammer toe(s) (acquired), left foot M20.42 Assessments Encounter Date Diagnosis (ICD Code) Assessment Notes Treatment Notes Treatment Clinical Notes Section Notes 09/19/2024 Atherosclerosis of [place] artery of both lower extremities, with unspecified presence of clinical manifestation (ICD-10 - I70.203) 09/19/2024 Tinea unguium (ICD-10 - B35.1) 09/19/2024 Pain in right toe(s) (ICD-10 - M79.674) 09/19/2024 Pain in left toe(s) (ICD-10 - M79.675) 09/19/2024 Other hammer toe(s) (acquired), right foot (ICD-10 - M20.41) 09/19/2024 Other hammer toe(s) (acquired), left foot (ICD-10 - M20.42) Plan Of Treatment Medication Medication Name Sig Start Date Stop Date Notes Orthopedic Extra Depth Shoes With Custom Heat Molded Multidensity Innersoles 1 Pair shoes with 3 Pair custom heat molded innersoles Wear Daily for 365 days Pending Test Test Name Order Date [id number] NAIL, 6 OR MORE 09/19/2024 44008-ZLTO SKIN LESIONS, OVER 4 09/19/19 25 Next Appt Details Follow Up: 2 Months, Reason: Provider Name:Jarod Boone , 12/15/2024 01:45:00 PM, [address] , [address], [place], [address], Procedure Notes * Category Sub-Category Detail Notes Debride Nail 6-10 Nail debridement Due to the cl inical pathology outlined in the exam findings, performance of this nail treatment is medically necessary as its management by an unskilled/untrained nonprofessional would put this patients foot and overall health at risk. Therefore, debridement to affected nail(s), as described in exam ( TA, T1, T2, T3, T4, T5, T6, T7, T8, T9), was performed exclusively by the physician of record to reduce/remove overall nail length, girth, thickness, subungual debris, and necrotic tissue, by manual and/or electrical means through the use of a nail nipper and/or dremel-type rubber roller grinder operator, to a more viable healthy nail plate or bed tissue 6-10 nails in total. Silver nitrate was used for any petechial bleeding as necessary. Definitive antifungal treatment options, both pharmaceutical and surgical, have been reviewed and discussed with the patient. The patient solely prefers the use of intermittent/as needed professional debridement services for their nail condition and understands the need for additional periodic treatments to maintain effectiveness in symptomatic relief - 46643 Keratoma Treatment Parring or Cutting o f Benign Hyperkeratotic Lesion(s) (-57) More than 4 Lesions - Due to the at risk nature of the patients medical condition as documented in the exam findings, performance of this keratoderma treatment is medically necessary as its management by an unskilled/untrained nonprofessional would put this patients foot and overall health at risk. Therefore, the benign hyperkeratotic lesions, ( 6) in total, locations as stated and described in the exam ( SUB MTH (s), 1, B/L , SUB MTH (s), 5, B/L ,Plantar, Heel(s), B/L), were pared, and/or cut utilizing a sterile 15 blade, tissue nippers, and/or power dremel instrumentation by the physician of record - 80636, Q8 Progress Notes * Lawrence PEDERSENDOB:1950 (73 yo M)Acc No.[id number]:09/19/2024 Progress Note Patient:?Lawrence PEDERSEN Provider:?Jarod Boone DPM :1950???Age:73 Y???Sex:Male Salvador e:09/19/2024 Address:[address] [place], [place] [id number] Pcp:Tracy Oneill Subjective: * Chief Complaints: * ???At Risk FootcarePainful N ail(s) aggrevated by shoes and causing difficulty standing/walking.Toe Irritation * HPI: ???At Risk footcare:?Pt States Last PCP Visit:?Date?07/01/2024 ???Toe pain:?Location:?B/L feet.?Duration:?several years.?Course:?worse.?Aggravated by:?shoes, any pressure.?Treatments:?change in shoes.? * ROS:?General/Constitutional:?Nausea?denies.?Vomiting?denies.?Hunger Thirst?admits.?Loss appetite?denies.?Chills?denies.?Fatigue?denies.?Fever?denies.?Night Sweats?denies.?Unexplained weight loss?denies.?Unexplained [...] unspecified site.?Spouse: alive.? * Social History:?Tobacco Use:?Tobacco use other than smoking?Are you an other tobacco user??No ?Tobacco Control (Standard)?Tobacco use:?Nonsmoker ?Additional Findings: Tobacco non-user?Current nonsmoker ???Drugs/Alcohol:?Drugs?Have you used drugs other than those for medical reasons in the past 12 months??No ?Alcohol Screen?Did you have a drink containing alcohol in the past year??No ?Points?0 ?Interpretation?Negative ???Miscellaneous:?Caffeine: yes, frequency:, 1-2 cups per day. ?Children: yes. ?Exercise: no. ?Marital status: . ?Occupation: Retired. * Medications:?TakingArtificia [...] Pair custom heat molded innersoles Wear Daily Ammonium Lactate 12 % Cream 1 application to affected area Externally Twice a day to dry areas of skin on feet Taking Artificial Tears 1-0.3 % Solution INSTILL 1 [...] TK 1 T PO TID Oral Taking Multi-Vitamins - Tablet TK 1 T PO QD Oral Taking Orthopedic Extra Depth Shoes With Custom Heat Molded Multidensity Innersoles 1 Pair shoes with 3 Pair custom heat molded innersoles Wear Daily Taking Ammonium Lactate 12 % Cream 1 application to affected area Externally Twice a day to dry areas of skin on feet Not-Taking/PRNAzithromycin 250 MG Tablet Oral Tamsulosin HCl 0.4 [...] * Allergies:?AspirinPenicillin yes[Allergies Verified] Objective: * Vitals:?Ht: 5ft 7in, Wt:135, BMI:21.14, Shoe size: 8.5, BP:125/69mm Hg, Ht-cm: 170.18 cm, Wt-k.23 kg. * Examination: ???Vascular: ?DP PULSES (B):? 0/4, B/L.?PT PULSES (B):? 1/4, B/L.?CAPILLARY FILL TIME:? delayed, all digits, B/L.?TROPHIC CONDITION-TEXTURE/ELASTICITY/TURGOR/HAIR GROWTH (B):? decreased, with sparse to absent hair growth, B/L.?TEMPERTURE GRADIENT (C):? decreased, cool to cool, proximal to distal, B/L.?PIGMENTATION:? mottled, B/L.?EDEMA (C):?absent, B/L.?CLAUDICATION (C):?denies, B/L.?REST PAIN:?denies, B/L.?Nails: ?NAILS are:? Elongated, overgrown, dystrophic, lytic, greater than 3mm thick, discolored and friable with crumbly malodorous subungual debris, with pain on palpation, TA, T1, T2, T3, T4, T5, T6, T7, T8, T9.?Dermatologic: ?SKIN FINDINGS:? Skin exam reveals Keratotic lesion(s) located at, SUB MTH (s), 1, B/L , SUB MTH (s), 5, B/L ,Plantar, Heel(s), B/L .?Orthopedic: ?MUSCLE STRENGTH:?5/5 all groups in a symmetrical fashion, B/L.?DIGITAL DEFORMITIES:?Digital contracture, PIPJ, 2-5 B/L, incompl-reducible to push-up test, medial under lapping - T4, T9, with evidence of shoe producing skin irritation.?FOOTWEAR:?worn, OT were inspected and noted to be severely worn , in poor condition not giving proper support at the present time, shoe gear properties exacerbate patients foot/toe deformity.?Neurological: ?SENSORY:?Neurological exam reveals intact sensorium, pain sensation normal, vibration sensation intact, pinprick sensation is normal in the lower extremities, Pt denies, anesthesia, burning, paresthesia, tingling, B/L.?General Examination: ?GENERAL APPEARANCE:?Reveals a pleasant, alert, well nourished, well- developed, well hydrated individual, who demonstrates proper attention to hygiene/body habitus, and is in no acute distress, Pt serves as own historian for office visit today.?ORIENTED:?person, place, and time.?FOOT EXAM:?Lower Extremity Neurological Exam performed:?Yes ?Visual exam of foot performed:?Yes ?Date?09/19/2024 ?Footwear Evaluation?Footwear Evaluation performed:?Yes??? Assessment: * Assessment: 1.?Tinea unguium - B35.1???2 .?Atherosclerosis of [place] artery of both lower extremities, with unspecified presence of clinical manifestation - I70.203 (Primary)???3.?Pain in right toe(s) - M79.674???4.?Pain in left toe(s) - M79.675 ??5.?Other hammer toe(s) (acquired), right foot - M20.41???Specify :Chronic problem, Worse (4),Rx Management (4)???6.?Other hammer toe(s) (acquired), left foot - M20.42???Specify :Chronic problem, Worse (4),Rx Management (4)??? Plan: * Treatment: 2.?Tinea unguium?Procedure: [id number]-[id number] NAIL, 6 OR MORE 3.?Other hammer toe(s) (acqu ired), right foot? Start Orthopedic Extra Depth Shoes, With Custom Heat Molded Multidensity Innersoles, 1 Pair shoes with 3 Pair custom heat molded innersoles, Wear, Daily, 365 days, 2, Refills 0.?? * Procedures:?Debride Nail 6-10:?Nail debridement?Due to the clinical pathology outlined in the exam findings, performance of this nail treatment is medically necessary as its management by an unskilled/untrained nonprofessional would put this patients foot and overall health at risk. Therefore, debridement to affected nail(s), as described in exam (?TA, T1, T2, T3, T4, T5, T6, T7, T8, T9), was performed exclusively by the physician of record to reduce/remove overall nail length, girth, thickness, subungual debris, and necrotic tissue, by manual and/or electrical means through the use of a nail nipper and/or dremel-type rubber roller grinder operator, to a more viable healthy nail plate or bed tissue 6- 10 nails in total. Silver nitrate was used for any petechial bleeding as necessary. Definitive antifungal treatment options, both pharmaceutical and surgical, have been reviewed and discussed with the patient. The patient solely prefers the use of intermittent/as needed professional debridement services for their nail condition and understands the need for additional periodic treatments to maintain effectiveness in symptomatic relief - 68283.?Keratoma Treatment:?Parring or Cutting of Benign Hyperkeratotic Lesion(s)?(-57) More than 4 Lesions - Due to the at risk nature of the patients medical condition as documented in the exam findings, performance of this keratoderma treatment is medically necessary as its management by an unskilled/untrained nonprofessional would put this patients foot and overall health at risk. Therefore, the benign hyperkeratotic lesions, ( 6) in total, locations as stated and described in the exam (?SUB MTH (s),?1,?B/L?,?SUB MTH (s),?5,?B/L?,Plantar,?Heel(s),?B/L), were pared, and/or cut utilizing a sterile 15 blade, tissue nippers, and/or power dremel instrumentation by the physician of record - 91390, Q8.? * Procedure Codes:?81138 DEBRI DE NAIL, 6 OR MORE, Modifiers: XS 22184 TRIM SKIN LESIONS, OVER 4, Modifiers: XS , Q8 * Preventive Medicine:? ??Counseling:?Discussion:?-14: Office or other outpatient visit for the evaluation and management of an established patient, which required a medically appropriate history and/or examination and MODERATE level of DECISION MAKING for: 1 OR MORE CHRONIC PROBLEM(S) THATS WORSENING, 2 STABLE CHRONIC PROBLEMS, A NEWLY DIAGNOSED PROBLEM WITH UNCERTAIN PROGNOSIS, AN ACUTE COMPLICATED INJURY WITH MULTIPLE TREATMENT OPTIONS, OR AN ACUTE PROBLEM WITH ACCOMPANYING SYSTEMIC SYMPTOMS, THAT POSE(S) A MODERATE RISK OF MORBIDITY. THIS CONDITION MAY ALSO INCLUDE RX DRUG MANAGEMENT, OR A DECISON FOR MINOR SURGERY. The visit on the day of the [...] have encouraged the patient to call the office.?Digital Surgery:?Digital surgery was discussed with the patient, We elected to try conservative treatment at the present time, due to the patients medical history and increased asssociated post-operative risks.?Digital Treatment:?HT- I explained to the patient the possible etiologies of Hammertoes, including genetics/foot type/shoegear/activity level/exercise routine and the risks/benefits of all the different treatment options for their pain including: No treatment at all, Rest, Ice, New/supportive/wider/deeper Shoegear, Digital Padding/Strapping/Taping/Bracing/Gel protective sleeves, Foot/Ankle AFO Bracing, Stretching exercises, Deep Tissue Massage, Arch support/shoe inserts with splay metatarsal padding, and Custom orthoses. I insisted that any digital devices be removed daily and not worn overnight for safety. The patient is to carefully examine the toes daily for any skin irritation while using any splinting or padding device. The advantages and disadvantages of each option were discussed and the patients questions re: shoegear, padding, custom vs prefabricated inserts, activity level, and consistency in home treatment regimens for optimal success were answered to their verbally confirmed satisfaction.?Shoe Gear Counseling:?SHOE Rx - The patient was counseled in great detail on their muscoloskeletal foot and toe deformities which coincided with the dermatological presentations visualized on exam. We discussed how their deformities put the integrity of their feet at risk for potential pedal complications which makes the accomidative diabetic shoes and cutomizable inserts medically necessary. We discussed the different shoe and insert treatment types and options, as well as the important advantages for adhering to regularly wearing these accomidative devices daily. The patient was made aware of the fact that a failure to abide by these recommedations may be deleterious to their foot health as they are able to prevent many pedal complications such as skin irritation, skin ulceration, infection, and even loss of toe/foot/leg/or life. Time was also spent with the patient dispensing and discussing proper diabetic footcare techniques including daily skin moisturization, daily foot inspection for any interruption in skin integrity including open lesions, or sign of infection such as redness/malodor/drainage/swelling. Also discussed and recommended were procedures regarding daily shoe inspection for the presence of internal foreign bodies as well as any visualized irregular shoe or insert wear. Patient questions re: shoes, inserts, and self foot inspections were answered to their satisfaction as the patient verbally confirmed a full understanding of the above information. A Rx for Extra Depth Orthopedic Shoes with 3 pair of custom heat-molded inserts was dispensed.? ??Screening/Special Tests:?Fall Risk?Screening:?No falls in the past year ?FALLS: Screening for Future Fall Risk?Have you had any falls with injury in the past year??No * Follow Up:?2 Months * Images: * Sign off status: Completed true * Provider:?Jarod Boone DPM Date:?2024 Generated for Yazmin ross/Jimmie/Leonides on:?11/09/2024 06:31 PM EST History and Physical Notes * HPI (History of Present Illness) Category Sub-Category Detail Notes Category Not es Toe pain Location: B/L feet Duration: several years Course: worse Aggravated by: shoes, any pressure Treatments: change in shoes At Risk footcare Pt States Last PCP Visit: Date: Examination Category Sub-Category Detail Notes Category Not es Neurological SENSORY: Neurological exa m reveals intact sensorium, pain sensation normal, vibration sensation intact, pinprick sensation is normal in the lower extremities, Pt denies, anesthesia, burning, paresthesia, tingling, B/L Dermatologic SKIN FINDINGS: Skin exam reveal s Keratotic lesion(s) located at, SUB MTH (s), 1, B/L , SUB MTH (s), 5, B/L ,Plantar, Heel(s), B/L Orthopedic FOOTWEAR: worn, OT were in spected and noted to be severely worn , in poor condition not giving proper support at the present time, shoe gear properties exacerbate patients foot/toe deformity DIGITAL DEFORMITIES: Digital contracture , PIPJ, 2-5 B/L, incompl-reducible to push-up test, medial under lapping - T4, T9, with evidence of shoe producing skin irritation MUSCLE STRENGTH: 5/5 all groups in a symmetrical fashion, B/L General Examination GENERAL APPEARANCE: Reveals a pleasant, alert, well nourished, well-developed, well hydrated individual, who demonstrates proper attention to hygiene/body habitus, and is in no acute distress, Pt serves as own historian for office visit today FOOT EXAM: Lower Extremity Neurological Exa m performed:: Yes Visual exam of foot performed:: Yes Date: 09/19/2024 ORIENTED: person, place, and t [place] Footwear Evaluation Footwear Evaluation performe d:: Yes Vascular DP PULSES (B): 0/4, B/L PT PULSES (B): 1/4, B/L CAPILLARY FILL TIME: delayed, all digits , B/L TEMPERTURE GRADIENT (C): decreased, cool to cool, proximal to distal, B/L TROPHIC CONDITION-TEXTURE/ELASTICITY/TURGOR/HAIR GROWTH (B): decreased, with sparse to absent hair gr owth, B/L EDEMA (C): absent, B/L CLAUDICATION (C): denies, B/L REST PAIN: denies, B/L PIGMENTATION: mottled, B/L Nails NAILS are: Elongated, overg rown, dystrophic, lytic, greater than 3mm thick, discolored and friable with crumbly malodorous subungual debris, with pain on palpation, TA, T1, T2, T3, T4, T5, T6, T7, T8, T9
--- OUTSIDE RECORDS SUMMARY | 2024-11-09 18:32 | XMS_ITS | Clinical Summary ---
Author Organization [facility] Address [address] [place] [address] Care Team Providers Care Insurance Sales Specialist Name Role Phone Unknown Primary Care Provider [phone] Allergies Active Allergy Reactions Criticality Noted Date [...] Inactivated Comments 12/06/2021 9:21 PM Care Teams Insurance Sales Specialist Relationship Specialty Start Date End Date Unknown Unknow Provider Address PCP - General 12/06/21
--- OUTSIDE RECORDS SUMMARY | 2024-11-09 18:32 | XMS_ITS | Patient Health Record ---
Author Organization Pedro Jasso III, MD Address [address] [place] [address] Care Team Providers Care Manager Of Allied Health Services Name Role Phone Nino CEBALLOS, [facility] Primary Care Provider Pedro [facility] [phone] Allergies Allergen (clinical drug ingredient) Drug/Non Drug Allergy documented on EMR Reaction Allergy Type Onset Date Status Penicillin rash Drug Allergy Active Lisinopril COUGH Drug Allergy Active aspirin Aspirin stomach upset Drug Allergy Act rachelle Reason For Referral No Information Medications Medication SIG (Take, Route, Frequency, Duration) Notes Start Date End Date Status Ferrous Sulfate 325 (65 Fe) MG 1 tablet Orally Once a day Active Megestrol Acetate 400 MG/10ML 10 ml Orally Twice a day 04/16/2022 Act rachelle DULoxetine HCl 30 MG 1 capsule Orally Tw ice a day Active Vitamin B 12 100 MCG Orally Active CeleBREX 200 MG 1 capsule with food Orally Once a day Active Tylenol 8 Hour 650 MG 2 tablets as neede d Orally every 8 hrs Active Anoro Ellipta 62.5-25 MCG/INH 1 puff Inhalation Once a day Active tiZANidine HCl 2 MG 1 tablet as needed Orally Three times a day Active Losartan Potassium 50 MG 1 tablet Orally Once a day Active Levothyroxine Sodium 88 MCG 1 tablet on an empty stomach in the morning Orally Once a day Active Gabapentin 300 MG 1 capsule Orally Thr ee times a day Active Flovent HFA 110 MCG/ACT 2 puffs Inhalati on Twice a day Active Folic Acid 1 MG TAKE 1 TABLET BY BABS TH EVERY DAY Active Albuterol Sulfate 108 (90 Base) MCG/ACT 2 puffs as needed Inhalation every 6 hrs Active Omeprazole 40 MG 1 capsule Orally Onc e a day Active traMADol HCl 50 MG 1 tablet as needed Orally Once a day Active Mirapex ER 3 MG 1 tablet Orally Once a day Active Meclizine HCl 25 MG 1 tablet as needed Orally three time a day Active Social History Tobacco Use: Social History Observation Description Date Details (start date - stop date) Former Smoker NA - NA Sex Assigned At : Social History Observation Description Sex Assigned At Male Tobacco Use/Smoking Question Answer Notes Patient is a former smoker How long has it been since you last smoked? 5-10 years Additional Findings: Tobacco Non-User Ex-cigaret te smoker Problems Problem Type SNOMED Code ICD Code Onset Dates Problem Status W/U Status Risk Notes Problem 3389165 Former smoker (Z87.891) Active confirmed He seems motiva fransisco not to smoke. We discussed a strategy to prevent relapse and time of illness or stress. Problem 49013739 Weight loss (R63.4) Active confirmed He has lost rob ost 40 pounds since 2018. The cause is being sought. Problem 221791597 Anemia of chroni c disease (D63.8) Active confirmed The anemia a ppears to be chronic disease. He will be evaluated for a monoclonal protein and plasma cell dyscrasia. It is normochromic and normocytic and no bleeding has been noted. Problem 633258513 Gastroesophageal reflux disease without esophagitis (K21.9) Active confirmed His reflux is well-controlled with prescription medication. Problem 84490134 Dysphagia, unspecified type (R13.10) Active confirmed A barium swallo w has been ordered. Problem 901391115 Benign prostatic hyperplasia with lower urinary tract symptoms (N40.1) Active confirmed He rises from s leep once or twice a night. We discussed lifestyle modification using the feeding tube is way to reduce nocturnal urinating. Problem 753175721 Back pain at L4-L5 level (M54.5) Active confirmed The pain is min imal today in no additional treatment was necessary. Problem Monoclonal gammopathy present on serum protein electrophoresis (D47.2) Active confirmed Comprehensive b lood work including electrophoresis and immunofixation and light chain studies has been ordered. Current lab values are not available. 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 He has a history of major depression. He was referred back to primary care for management of his nonneoplastic needs. 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 Problem 84890397 Trismus (R25.2) Active confirmed He has a feeding tube because of the trismus. He has no pain if he does not attempt to open his mouth widely. Plan Of Treatment Pending Test Test Name Order Date PREALBUMIN 05/09/2022 PROFILE, RANDOM (COMPREHENSIVE METABOLIC ) 01/27/2022 PROFILE, RANDOM (COMPREHENSIVE METABOLIC ) 11/24/2018 PROFILE, RANDOM (COMPREHENSIVE METABOLIC ) 11/25/2021 PROFILE, RANDOM (COMPREHENSIVE METABOLIC ) 11/05/2021 PROFILE, RANDOM (COMPREHENSIVE METABOLIC ) 04/05/2018 PROFILE, RANDOM (COMPREHENSIVE METABOLIC ) 08/23/2019 PROFILE, RANDOM (COMPREHENSIVE METABOLIC ) 01/09/2023 PROFILE, RANDOM (COMPREHENSIVE METABOLIC ) 07/08/2023 PROFILE, RANDOM (COMPREHENSIVE METABOLIC ) 05/09/2022 LDH 11/05/2021 FREE T4 (FT4) 08/23/2019 FREE T4 (FT4) 01/09/2023 FREE T4 (FT4) 05/09/2022 FREE T4 (FT4) 11/24/2018 TSH (THYROID STIMULATING HORMONE) 2018 TSH (THYROID STIMULATING HORMONE) 2022 TSH (THYROID STIMULATING HORMONE) 2021 TSH (THYROID STIMULATING HORMONE) 2018 FERRITIN 11/24/2018 FERRITIN 01/27/2022 FERRITIN 11/05/2021 B12 11/24/2018 PSA, TOTAL 07/08/2023 CBC w DIFF 11/05/2021 CBC w DIFF 07/08/2023 CBC w DIFF 08/23/2019 CBC w DIFF 01/27/2022 CBC w DIFF 11/24/2018 CBC w DIFF 01/09/2023 CBC w DIFF 05/09/2022 CBC w DIFF 04/15/2019 CBC w DIFF 11/25/2021 CBC w DIFF 04/05/2018 SED RATE (ESR) 01/27/2022 SED RATE (ESR) 01/09/2023 RETICULOCYTE COUNT,CORRECTED 11/05/2021 RETICULOCYTE COUNT,CORRECTED 11/25/2021 IMMUNOFIXATION PANEL, SERUM (IEP) 2021 IMMUNOFIXATION PANEL, SERUM (IEP) 2017 IMMUNOFIXATION PANEL, SERUM (IEP) 2022 IMMUNOFIXATION PANEL, SERUM (IEP) 2022 PROTEIN ELECTROPHORESIS, SERUM 2 PROTEIN ELECTROPHORESIS, SERUM 3 PROTEIN ELECTROPHORESIS, SERUM 3 BETA-2 MICROGLOBULIN, SERUM 11/25/2021 IMMUNOFIXATION PANEL RAND UR (IEP) 04/05 FREE KAPPA LAMBDA, SERUM K/L RATIO 10/28 FREE KAPPA LAMBDA, SERUM K/L RATIO 11/25 FREE KAPPA LAMBDA, SERUM K/L RATIO 01/09 FREE KAPPA LAMBDA, SERUM K/L RATIO 07/08 KAPPA LAMBDA SER 01/09/2023 KAPPA LAMBDA SER 07/08/2023 KAPPA LAMBDA SER 10/28/2022 KAPPA LAMBDA SER 11/25/2021 CT NECK W&WO CONTRAST 01/09/2023 XR BARIUM SWALLOW, MODIFIED VIDEO 2021 Testosterone, Free/Total 01/09/2023 Protein Electrophoresis, Serum 3 Immunofixation Pnl, Serum 01/09/2023 Insurance Providers Payer Name Payer Address Payer Phone Subscriber Number Group Number Insured Name Patient Relationship to Insured Coverage Start Date Coverage End Date [facility] [address] ATTN CLAIMS [place] [id number] Lawrence Pedersen Self - patient is the insured 6 MEDICARE NGS [address] [place] [address] [id number] Lawrence Pedersen Self - patient is the insured MEDICAID [address] [place] [id number] [phone] [id number] Lawrence Pedersen Self - patient is the insured Medical (General) History Medical History History ICD Code Chronic obstructive pulmonary disease, u nspecified COPD type J44.9 Benign prostatic hyperplasia , unspecified whether lower urinary tract symptoms present N40.0 Arthritis, rheumatic, acute or subacute I00 Lumbar spondylosis M47.816 Hypothyroidism, unspecified type E03.9 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 Culver 10/2001 laminectomy, lumbar spine, Dr. Henderson 2002 Hospitalization History Reason Date(Month/Year) insertion of feeding tube Dr Frankel 07/2022 anemia needed blood transfusion 11/25 Anemia 10/2021 throat infection 2019
--- OUTSIDE RECORDS SUMMARY | 2024-11-09 18:32 | XMS_ITS ---
Author [facility] Address [address] [place] [address] Care Team Providers Care Sap Security Consultant Name Role Phone Lalylana Tracy Primary Care Provider Unavailab Jarod Davis Unavailable [phone] Allergies Allergen (clinical drug ingredient) Drug/Non Drug Allergy documented on EMR Reaction Allergy Type Onset Date Status aspirin Aspirin Unknown Drug Allergy Active Penicillin Unknown Drug Allergy Active REASON FOR VISIT At Risk Footcare, Painful Nail(s) aggravated by shoes and causing difficulty standing/walking., Skin problem(s) Medications Medication SIG (Take, Route, Frequency, Duration) Notes Start Date End Date Status Ammonium Lactate 12 % 1 application to affected area Externally Twice a day to dry areas of skin on feet for 30 days Active Artificial Tears 1-0.3 % INSTILL 1 DROP IN BOTH EYES QID AND Q 2 H PRN FOR IRRATATION Ophthalmic for 13 Active Fluvirin - ADM 0.5ML IM UTD Intramuscular for 1 Not-Taking Loratadine 10 MG TK 1 T PO D Oral for 30 Not-Taking Belbuca 150 MCG (Schedule III Drug) DISSOLVE 1 FILM UNDER THE TONGUE BID Buccal for 30 Not-Taking Multi-Vitamins - TK 1 T PO QD Oral fo r 90 Active Butrans 10 MCG/HR (Schedule III Drug) JIMI 1 PATCH TO THE SKIN ONCE A WEEK FOR 2 WEEKS THEN U 2 PATCHES FOR 1 WEEK Transdermal for 21 Not-Taki ng Tamsulosin HCl 0.4 MG TK 1 C PO HS Oral for 90 Not-Taking Azithromycin 250 MG Oral for 5 Not-Taking Orthopedic Extra Depth Shoes With Custom Heat Molded Multidensity Innersoles 1 Pair shoes with 3 Pair custom heat molded innersoles Wear Daily for 365 days 06/11/2023 Active Arthritis Pain Relief 650 MG TK 1 T PO TID Oral for 30 Active Vitamin B-12 1000 MCG TK 1 T PO D Oral for 90 Active tiZANidine HCl 2 MG TK [...] T PO HS Oral for 90 Active ProAir HFA 108 (90 Base) MCG/ACT INL 2 PUFFS PO QID PRF ASTHMA Inhalation for 16 Active Omeprazole 40 MG TK 1 C PO D Oral for 90 Active Meclizine HCl 12.5 MG TK 1 T PO TID PRF DIZZINESS Oral for 33 Active Levothyroxine Sodium 88 MCG TK 1 T PO D Oral for 90 Acti ve Gabapentin 300 MG TK 1 C PO TID Oral f or 90 Active Fluticasone Propionate 50 MCG/ACT U [...] 0 MG C Oral for 90 Active Social History Tobacco Use: Social History Observation Description Date Details (start date - stop date) Never Smoker NA - NA Tobacco Use/Smoking Question Answer Notes Are you a: nonsmoker Additional Findings: Tobacco Non-User Current no n-smoker Tobacco use other than smoking: Question Answer Notes Are you an other tobacco user? No Procedures Procedure Date Ordered Date Performed Result Body Sit e 02875-YVPGFYL NAIL, 6 OR MORE 06/09/2024 N/A 37397-WLYA SKIN LESIONS, OVER 4 06/09/2024 N/A Encounters Encounter Location Date Provider Diagnosis [facility] [address] [place] [id number] 06/09/2024 Jarod Boone Atherosclerosis of [place] artery of both lower extremities, with unspecified presence of clinical manifestation I70.203 ; Tinea unguium B35.1 ; Pain in right toe(s) M79.674 ; Pain in left toe(s) M79.675 and Xerosis of skin L85.3 Assessments Encounter Date Diagnosis (ICD Code) Assessment Notes Treatment Notes Treatment Clinical Notes Section Notes 06/09/2024 Atherosclerosis of [place] artery of both lower extremities, with unspecified presence of clinical manifestation (ICD-10 - I70.203) 06/09/2024 Tinea unguium (ICD-10 - B35.1) 06/09/2024 Pain in right toe(s) (ICD-10 - M79.674) 06/09/2024 Pain in left toe(s) (ICD-10 - M79.675) 06/09/2024 Xerosis of skin (ICD-10 - L85.3) Plan Of Treatment Medication Medication Name Sig Start Date Stop Date Notes Ammonium Lactate 12 % 1 application to a ffected area Externally Twice a day to dry areas of skin on feet for 30 days Pending Test Test Name Order Date [id number] NAIL, 6 OR MORE 06/09/2024 24063-EQCU SKIN LESIONS, OVER 4 06/09/20 24 Next Appt Details Follow Up: 2 Months, Reason: Provider Name:Jarod Boone , 12/15/2024 01:45:00 PM, [address], [address], [place], [address], Procedure Notes * Category Sub-Category Detail Notes Debride Nail 6-10 Nail debridement Performance o f this nail treatment by a nonprofessional would put this patients foot and overall health at risk. Therefore, nail debridement was performed extensively to reduce/remove overall nail length, girth, thickness, subungual debris, and necrotic tissue, by manual and/or electrical means through the use of a nail nipper and/or dremel-type air grinder, to a more viable healthy nail plate or bed tissue 6-10. Silver nitrate used for any petechial bleeding as necessary. Definitive antifungal treatment options have been reviewed and discussed with the patient. The patient chooses, no pharmaceutical tx - 43043 Keratoma Treatment Parring or Cutting o f Benign Hyperkeratotic Lesion(s) (-57) More than 4 Lesions - The Benign hyperkeratotic lesions, as described above were pared, and/or cut utilizing a sterile 15 blade, tissue nippers, and/or dremel - 51918 , Q8 Progress Notes * Ganesh PEDERSEN:1950 (73 yo M)Acc No.[id number]:06/09/2024 Progress Note Patient:Lawrence MARTÍNEZ Provider:?Jarod Boone DPM :1950???Age:73 Y???Sex:Male Salvador e:06/09/2024 Address:[address] [place], [place] [phone] Pcp:Tracy Oneill Subjective: * Chief Complaints: * ???At Risk FootcarePainful N ail(s) aggravated by shoes and causing difficulty standing/walking.Skin problem(s) * HPI: ???At Risk footcare:?Pt States Last PCP Visit:?Date?03/14/2024 ???Skin problems:?Treatments:?medication ( AM Lactin ).? * ROS:?General/Constitutional:?Nausea?denies.?Vomiting?denies.?Hunger Thirst?admits.?Loss appetite?denies.?Chills?denies.?Fatigue?denies.?Fever?denies.?Night Sweats?denies.?Unexplained weight loss?denies.?Unexplained [...] than smoking?Are you an other tobacco user??No * Medications:?TakingAmmonium Lactate 12 % Cream 1 application to affected area Externally Twice a day to dry areas of skin on feet Artificial Tears 1-0.3 % Solution INSTILL 1 [...] Pair custom heat molded innersoles Wear Daily Not-Taking/PRNAzithromycin 250 MG Tablet Oral Tamsulosin HCl [...] patient * Allergies:?AspirinPenicillin yes[Allergies Verified] Objective: * Vitals:? * Examination: ???Vascular: ?DP PULSES (B):? 0/4, [...] B/L , Heel(s), B/L , Skin shows approximately 50% LESS, sign(s) of, dryness, scaling, in a stocking fashion, no fissure(s) present, B/L.? Assessment: * Assessment: 1.?Tinea unguium - B35.1???2 .?Atherosclerosis of [place] artery of both lower extremities, with unspecified presence of clinical manifestation - I70.203???3.?Pain in right toe(s) - M79.674???4.?Pain in left toe(s) - M79.675?? 5.?Xerosis of skin - L85.3???Specify :Acute problem, Stable (1=3),Response to treatment - Improvement??? Plan: * Treatment: 2.?Atherosclerosis of [place] artery of both lower extremities, with unspecified presence of clinical manifestation?Procedure: 93961-HVMS SKIN LESIONS, OVER 4 3.?Xerosis of skin? Start Ammonium Lactate Cream, 12 %, 1 application to affected area, Externally, Twice a day to dry areas of skin on feet, 30 days, 140, Refills 2.?? * Procedures:?Debride Nail 6-10:?Nail debridement?Performance of this nail treatment by a nonprofessional would put this patients foot and overall health at risk. Therefore, nail debridement was performed extensively to reduce/remove overall nail length, girth, thickness, subungual debris, and necrotic tissue, by manual and/or electrical means through the use of a nail nipper and/or dremel-type air grinder, to a more viable healthy nail plate or bed tissue 6-10. Silver nitrate used for any petechial bleeding as necessary. Definitive antifungal treatment options have been reviewed and discussed with the patient. The patient chooses, no pharmaceutical tx - 56172.?Keratoma Treatment:?Parring or Cutting of Benign Hyperkeratotic Lesion(s)?(-57) More than 4 Lesions - The Benign hyperkeratotic lesions, as described above were pared, and/or cut utilizing a sterile 15 blade, tissue nippers, and/or dremel - 34214 , Q8.? * Procedure Codes:?37364 DEBRI DE NAIL, 6 OR MORE, Modifiers: XS 76369 TRIM SKIN LESIONS, OVER 4, Modifiers: XS , Q8 * Preventive Medicine:? ??Counseling:?Discussion:?-12: Office or other outpatient visit for the evaluation and management of an established patient, which required a medically appropriate history and/or examination and STRAIGHTFORWARD level of MEDICAL DECISION MAKING, 1 SELF-LIMITED OR MINOR PROBLEM, MINIMAL- NO AMOUNT/COMPLEXITY OF DATA TO BE REVIEWED/ANALYZED, AND MINIMAL RISK OF COMPLICATION/MORBIDITY. The visit on the day of the [...] have encouraged the patient to call the office.?Xerosis:?Given recent successful results to treatment, The patient is to cont the rx cream as directed.? ??Screening/Special Tests:?Fall Risk?Screening:?No falls in the past year ?FALLS: Screening for Future Fall Risk?Have you had any falls with injury in the past year??No * Follow Up:?2 Months * Images: * Sign off status: Completed true * Provider:?Jarod Boone DPM Date:?2023 Generated for Yazmin ross/Jimmie/eTransmitting on:?11/09/2024 06:31 PM EST History and Physical Notes * HPI (History of Present Illness) Category Sub-Category Detail Notes Category Not es Skin problems Treatments: medication ( AM Lactin ) At Risk footcare Pt States Last PCP Visit: Date: 4 Examination Category Sub-Category Detail Notes Category Not es Dermatologic SKIN FINDINGS: Skin exam reveal s Keratotic lesion(s) located at, SUB MTH (s), 1, B/L , SUB MTH (s), 5, B/L , Heel(s), B/L , Skin shows approximately 50% LESS, sign(s) of, dryness, scaling, in a stocking [...]
[2024-11-09 18:41] LABS: Ferritin 80 ng/mL (20-250); Thyroid Stimulating Hormone 1.39 uIU/mL (0.32-4.0)
== END 2024-11-09 15:18 | disposition home or self-care (01) ==
LOC: HO.LAB 15:17
PROVIDERS: PCP Internal Medicine; Visit Provider Internal Medicine
DX: E03.9 Hypothyroidism, unspecified (principal); F32.9 Major depressive disorder, single episode, unspecified; M96.1 Postlaminectomy syndrome, not elsewhere classified; Z93.1 Gastrostomy status
CPT/HCPCS: 36415; 80053; 80061; 82607; 82728; 84443; 85025

== ENCOUNTER 2025-03-06 18:18 | Emergency (ER) | payer OTHER, SELFPAY ==
--- NOTE | ~2025-03-06 | XR_ITS ---
CLINICAL HISTORY: post g tube 1 view abdomen Comparison: CR/SR - XR KUB - 08/01/23 01:32 EST Findings: Gastrostomy tube tip in the stomach with injected contrast in the stomach and proximal duodenum. No extraluminal contrast. No bowel obstruction. No pneumoperitoneum or pneumatosis. No abnormal calcifications. No acute fractures. IMPRESSION: Appropriately positioned gastrostomy tube. This document has been electronically signed by: Chapincito Spaulding MD on 03/06/2025 19:50:19
[2025-03-06 18:19] VITALS: BP 120/70; PULSE 60; O2SAT 97
[2025-03-06 18:31] VITALS: BP 126/67; PULSE 69; RESP 14; TEMP 37.2; O2SAT 96; BMI 21.7
--- NOTE | 2025-03-06 18:44 | ED_ITS ---
HPI - Abdominal Pain General Chief Complaint: Abdominal Pain Stated Complaint: NAUSEA VOMITING G-TUBE HYPOTENSIVE Time Seen by Provider: 03/06/25 18:27 Source: patient Mode of arrival: EMS Limitations: no limitations History of Present Illness ED Provider: HPI narrative: Patient is 74 years old with history of aortic aneurysm throat cancer status post radiation treatment hypotension GERD esophageal stricture depression COPD on G-tube feeding comes here as having nausea and 1 loose diarrhea and while in the EMS truck G-tube came out no sick contacts. No recent antibiotic use no fever no chills Related Data Home Medications ?Medication ?Instructions ?Recorded ?Confirmed umeclidinium 62.5 mcg-vilanterol 1 inh inhalation MORALES Y 06/21/20 11/21/24 25 mcg/actuation powdr for inhalation (Anoro Ellipta) acetaminophen 160 mg/5 mL oral 10 ml feeding tube TID PRN pain 11/18/22 11/21/24 liquid (M-PAP) fluticasone propionate 110 2 puff inhalation BID PRN 0 11/18/22 11/21/24 mcg/actuation HFA aerosol inhaler Shortness Of Breath Or Wheezing (Flovent HFA) fluticasone propionate 50 2 spray intranasal BID 11/1811/21/24 mcg/actuation nasal spray,suspension tizanidine 4 mg tablet 1 tab PO BEDTIME 11/18/22 triamcinolone acetonide 0.5 % 1 appl topical BID PRN R bib 11/18/22 11/21/24 topical cream tramadol 50 mg tablet 50 mg PO TID PRN Pain, Moder ate 02/02/23 11/21/24 (Pain Scale 4-6 timolol maleate 0.5 % eye drops 1 drp ophthalmic (eye) QAM 05/06/23 11/21/24 albuterol sulfate 90 mcg/actuation 90 mcg inhalation D AILY 06/08/23 11/21/24 aerosol inhaler duloxetine 30 mg capsule,delayed 30 mg PO DAILY 11/21/24 release duloxetine 60 mg capsule,delayed 60 mg PO DAILY 11/21/24 release ferrous sulfate 220 mg (44 mg 220 mg PO DAILY 11/23/23 11/21/24 iron)/5 mL oral elixir ammonium lactate 12 % topical cream 12 appl topical BI D 07/11/24 11/21/24 gabapentin 300 mg capsule 300 mg PO DAILY 07/11/24 levocetirizine 5 mg tablet 5 mg PO BEDTIME 07/11/24 [id number] 120 mcg-lutein 120 tab PO DAILY 12/2911/21/24 150 mcg-herb 50 mg chewable tablet (Alive Men's 50 Plus Multivitamin) polyethylene glycol 3350 17 gram 17 g PO DAILY 5 11/21/24 oral powder packet (Miralax) Previous Rx's ?Medication ?Instructions ?Recorded cyanocobalamin (vitamin B-12) 1,000 mcg feeding tube D AILY #30 07/18/22 1,000 mcg tablet (Vitamin B-12) tabs amlodipine 2.5 mg tablet 2.5 mg G-tube DAILY #30 tabs 04/03/23 omeprazole 40 mg capsule,delayed 1 cap PO BID #60 caps 04/03/23 release ascorbic acid (vitamin C) 500 mg 500 mg PO BID #120 ta bs 05/22/23 chewable tablet (Vitamin C) levothyroxine 75 mcg tablet 100 mcg (1.3333 x 75 mcg) feeding 07/11/24 tube DAILY@0600 #30 tabs Allergies Allergy/AdvReac Type Severity Reaction Status Date / Time Penicillins Allergy Intermediate Rash Verified 03/06/25 18:32 aspirin (ASA) AdvReac Intermediate GI BLEED, Verified 03/06/25 18:32 Headaches naproxen AdvReac Intermediate cannot mix Verified 03/06/25 18:32 with current meds Review of Systems Review of Systems Yes all other systems are reviewed and are negative [facility] Past Medical History Medical History Gastrostomy tube in place Uses feeding tube Pain around PEG tube site Normocytic anemia Lumbar radiculitis Post laminectomy syndrome History of epistaxis Esophageal stricture COVID-19 Anemia Pulmonary fibrosis Osteoarthritis of left shoulder Arthritis Back pain Hx of radiation therapy History of chemotherapy Cancer Difficulty swallowing Thyroid disease GERD (gastroesophageal reflux disease) Depression Pulmonary nodule COPD (chronic obstructive pulmonary disease) Aortic aneurysm Elevated cholesterol HTN (hypertension) Surgical History History of nasal surgery History of transurethral resection of prostate History of back surgery History of esophagogastroduodenoscopy (EGD) H/O colonoscopy Family History Family History Father Brain cancer Mother CVD (cardiovascular disease) Maternal Aunt Diabetes Social History Social History Household Members: Spouse and Children Household Members Other:: 2 Housing: Apartment Do you presently have visiting nurse or other home services: No Alcohol intake: never Comment: pt here with syncope and low BP Patient Tobacco Use Status: Former Tobacco user Tobacco use type: Cigarette Cigarette Packs Per Day: 3 Years Smoked: 25 Smoked in Last 30 Days: No e-Cigarette/Vaping Use: Never Used Second Hand Smoke Exposure: No Advance Directives: Yes Advance Directives on File: Yes Advance Directives Date on File: 03/04/21 Do you have a plan to hurt others: No Plan service: No Current occupational status: disabled Physical Exam ED Vital Signs: Vital Signs - 24 hr 03/06/25 18:31 03/07/25 01:24 03/07/25 01:49 Temperature 99.0 F 98.1 F 98.1 F Pulse Rate 69 98 97 Respiratory Rate 14 13 13 Blood Pressure 126/67 123/65 129/62 Pulse Oximetry 96 95 96 Oxygen Delivery Method Room Air Room Air Room Air 03/07/25 01:50 03/07/25 02:00 03/07/25 04:00 Temperature 99.4 F 99.6 F Pulse Rate 96 96 95 Respiratory Rate 11 L 14 16 Blood Pressure 129/62 134/66 119/57 L Pulse Oximetry 94 93 Oxygen Delivery Method Room Air Room Air BMI result Body Mass Index 21.7 Appearance: Alert. Oriented X3. No acute distress. Eyes: PERRLA, No Nystagmus ENT: Pharynx normal. Oral Mucosa moist Neck: Normal inspection. Neck supple. CVS: Normal heart rate and rhythm. Pulses normal. Respiratory: No respiratory distress. Equal air entry bilateral, no wheezing/rales/rhonchi Abdomen: Soft and nontender. Bowel sounds are present, no mass palpable, no CVA tenderness G-tube stoma intact Skin: Skin warm and dry. Normal skin color. Normal skin turgor. Extremities: No lower extremity edema. No calf tenderness Neuro: Oriented X 3. No motor deficit. Procedures Feeding Tube Replacement Type of Tube: gastrostomy Insertion Site Prior to Procedure: clean Tube Used for Reinsertion: other Hungarian Tube Size (F): 22 Balloon size (mL): 10 Verification of Placement: gastrografin injection Tube Secured by: tape/dressing Patient Tolerated Procedure: well and no complications Medical Decision Making Medical Decision Making [facility] Narrative: Patient's with nausea and loose bowel only 1 time noted to have potassium of 2.7. Patient has received replacement of potassium x-ray of the abdomen showed G-tube in place no signs of obstruction Differential Diagnosis Differential Diagnoses: The differential diagnosis associated with the presentation includes Lab Data [facility] Lab Attestation statement: I reviewed the patient's lab results. 03/06/25 19:10 03/07/25 01:42 Labs: Lab Results 03/06/25 03/07/25 03/07/25 Range/Units 19:10 00:19 01:42 WBC 5.6 (4.8-10.8) X10*3/uL RBC 3.53 L (4.60-5.80) X10*6/uL Hgb 11.3 L (14.0-18.0) g/dl Hct 33.6 L (42.0-52.0) % MCV 95.2 (80.0-98.0) fL MCH 32.0 (27.0-33.0) pg MCHC 33.6 (31.0-36.0) g/dl RDW 15.2 (11.0-16.0) % Plt Count 204 (160-400) X10*3/uL MPV 10.7 (9.4-12.4) fL Immature Gran % (Auto) 0.4 (0.0-0.4) % Neut % (Auto) 81.4 H (45-73) % Lymph % (Auto) 6.2 L (20-40) % [place] % (Auto) 11.2 H (2-11) % Eos % (Auto) 0.4 (0-4) % Baso % (Auto) 0.4 (0-2) % Lymph # (Auto) 0.4 L (1.2-4.9) X10*3/uL [place] # (Auto) 0.6 (0.1-1.2) X10*3/uL Eos # (Auto) 0.0 (0.0-0.4) X10*3/uL Baso # (Auto) 0.0 (0.0-0.2) X10*3/uL Abs Immat Gran (auto) 0.02 (0.00-0.03) X10*3/uL Absolute Neuts (auto) 4.6 (2.0-8.3) x10*3/uL Absolute Nucleated RBC 0.000 (0.0-0.012) X10*3/uL Nucleated RBC % (auto) 0.0 (0.0-0.2) /100WBC Sodium 141 141 (135-145) mmol/L Potassium 2.7 L* D 3.8 D (3.3-5.1) mmol/L Chloride 106 109 H (96-108) mmol/L Carbon Dioxide 27 22 (22-29) mmol/L Anion Gap 11 L 14 (12-20) BUN 15 13 (9-16) mg/dL Creatinine 0.87 0.73 (0.5-1.4) mg/dL Estim Creat Clear Calc 66.2 78.9 Estimated GFR > 60 > 60 Random Glucose 109 102 (60-115) mg/dL Calcium 9.2 8.7 (8.4-10.2) mg/dL Magnesium 2.4 (1.6-2.6) mg/dL Total Bilirubin 0.2 (0.0-1.0) mg/dL AST 28 (5-37) U/L ALT 16 (0-40) U/L Alkaline Phosphatase 81 (39-117) U/L Total Protein 6.7 (6.5-8.0) g/dL Albumin 3.8 (3.5-5.0) g/dL Urine Color Yellow Urine Appearance Clear Urine pH 8.0 (5.0-9.0) Ur Specific [place] 1.015 (1.005-1.025) Urine Protein Negative (Neg-Trace) mg/dL Urine Glucose (UA) Negative (Negative) mg/dL Urine Ketones Negative (Negative) mg/dL Urine Blood Negative (Negative) Urine Nitrite Negative (Negative) Ur Leukocyte Esterase Trace H (Negative) Urine RBC 0-2 (0-2) /HPF Urine WBC 0-5 (0-5) /HPF Ur Squamous Epith Cells 0-2 (0-2) /HPF Urine Bacteria Trace (None Seen) Hyaline Casts 0-2 (0-2) /LPF Influenza Type A (PCR) NEGATIVE (Negative) Influenza Type B (PCR) NEGATIVE (Negative) RSV RNA Qual (PCR) NEGATIVE (Negative) SARS-CoV-2 RNA (RT-PCR) NEGATIVE (Negative) Medications Administered Discontinued Medications Generic Name Dose Route Start Last Admin Trade Name Freq PRN Reason Stop Dose Admin Diatrizoate Meglum/Diatrizoate Sod 30 ml 03/06/25 19:37 03/06/25 19:38 Diatrizoate Meglumine, Sodium 30 Ml Solution PO 03/06/25 19:38 30 ml ONCE ONE Administration Sodium Chloride 1,000 mls @ 999 mls/hr 03/06/25 18:45 03/06/25 21:28 Ns IV 03/06/25 19:45 Infused .Q1H1M ONE Infusion Potassium Chloride 10 meq in 100 mls @ 100 mls/hr 03/06/25 20:15 03/07/25 01:04 Potassium Chloride/H20 IV 03/06/25 22:14 Infused Q1H FRANCK Infusion Morphine Sulfate 4 mg 03/07/25 00:11 03/07/25 01:00 Morphine Sulfate 4 Mg/Ml Cartridge IVPUSH 03/07/25 00:12 4 mg ONCE ONE Administration Protocol Ondansetron HCl 4 mg 03/07/25 00:11 03/07/25 01:01 Ondansetron Hcl 4 Mg/2 Ml Vial IVPUSH 03/07/25 00:12 4 mg ONCE ONE Administration Potassium Bicarbonate 50 meq 03/07/25 01:36 03/07/25 02:02 Potassium Bicarbonate/Cit Ac 25 Meq Tablet.Eff G-TUBE 03/07/25 01:37 50 meq ONCE ONE Administration Discharge Plan Discharge Clinical Impression: Gastrostomy tube in place, Acute hypokalemia Patient Disposition: Still a Patient Instructions: How to Use and Care for Your PEG Tube (DC), Hypokalemia (ED) Additional Instructions: Care and cautions as advised Follow with your PCP as needed Prescriptions: No Action Anoro Ellipta 62.5-25 mcg/actuation Blister With Device 1 inh INHALATION DAILY cyanocobalamin (vitamin B-12) [Vitamin B-12] 1,000 mcg tablet 1,000 mcg feeding tube DAILY Qty: 30 0RF acetaminophen [M-PAP] 160 mg/5 mL liquid 10 ml feeding tube TID PRN (Reason: pain) triamcinolone acetonide 0.5 % cream 1 appl topical BID PRN (Reason: Rash) tizanidine 4 mg tablet 1 tab PO BEDTIME fluticasone propionate [Flovent HFA] 110 mcg/actuation HFA aerosol inhaler 2 puff INHALATION BID PRN (Reason: Shortness Of Breath Or Wheezing) fluticasone propionate 50 mcg/actuation spray,suspension 2 spray intranasal BID tramadol 50 mg tablet 50 mg PO TID PRN (Reason: Pain, Moderate (Pain Scale 4-6) amlodipine 2.5 mg Tablet 2.5 mg G-tube DAILY Qty: 30 0RF Protocol: Hold for SBP< HOLD for SBP < : 90 omeprazole 40 mg capsule,delayed release(DR/EC) 1 cap PO BID Qty: 60 0RF ascorbic acid (vitamin C) [Vitamin C] 500 mg Tablet,Chewable 500 mg PO BID Qty: 120 6RF polyethylene glycol 3350 [Miralax] 17 gram powder in packet 17 g PO DAILY timolol maleate 0.5 % drops 1 drp ophthalmic (eye) QAM albuterol sulfate 90 mcg/actuation HFA aerosol inhaler 90 mcg inhalation DAILY ferrous sulfate 220 mg (44 mg iron)/5 mL elixir 220 mg PO DAILY duloxetine 60 mg capsule,delayed release(DR/EC) 60 mg PO DAILY duloxetine 30 mg capsule,delayed release(DR/EC) 30 mg PO DAILY Alive Men's 50 Plus Multivit 120 mcg-150 mcg -50 mg tablet,chewable 120 tab PO DAILY ammonium lactate 12 % cream 12 appl topical BID gabapentin 300 mg capsule 300 mg PO DAILY levocetirizine 5 mg tablet 5 mg PO BEDTIME levothyroxine 75 mcg tablet 100 mcg feeding tube DAILY@0600 Qty: 30 0RF Print Language: Slovak
[2025-03-06 19:16] LABS: MANUAL DIFF FLAG NO
[2025-03-06 19:17] LABS: Hematocrit 33.6 % (42.0-52.0); Hemoglobin 11.3 g/dl (14.0-18.0); Imm Gran Abs Auto 0.02 X10*3/uL (0.00-0.03); Imm Gran Pct Auto 0.4 % (0.0-0.4); Lymphocytes Absolute Auto 0.4 X10*3/uL (1.2-4.9); Mean Corpuscular HGB Conc 33.6 g/dl (31.0-36.0); Mean Corpuscular Hemoglobin 32.0 pg (27.0-33.0); Mean Corpuscular Volume 95.2 fL (80.0-98.0); NRBC Abs Auto 0.000 X10*3/uL (0.0-0.012); NRBC Pct Auto 0.0 /100WBC (0.0-0.2); Platelet Count 204 X10*3/uL (160-400); Red Blood Count 3.53 X10*6/uL (4.60-5.80); White Blood Count 5.6 X10*3/uL (4.8-10.8)
[2025-03-06 19:51] LABS: Alanine Aminotransferase 16 U/L (0-40); Albumin Level 3.8 g/dL (3.5-5.0); Alkaline Phosphatase 81 U/L (39-117); Anion Gap 11 (12-20); Aspartate Amino Transferase 28 U/L (5-37); Blood Urea Nitrogen 15 mg/dL (9-16); Calcium 9.2 mg/dL (8.4-10.2); Carbon Dioxide 27 mmol/L (22-29); Chloride 106 mmol/L (96-108); Creatinine Clr Calc Pharmacy 66.2; Estimated Glomerular Filt Rate > 60; Magnesium 2.4 mg/dL (1.6-2.6); Potassium 2.7 mmol/L (3.3-5.1); Sodium 141 mmol/L (135-145); Total Protein 6.7 g/dL (6.5-8.0)
[2025-03-06 19:56] LABS: Resp Syncy Virus RNA Qual PCR NEGATIVE (Negative); SARS COV2 PCR INHOUSE NEGATIVE (Negative)
[2025-03-06] MEDS: Potassium Chloride/H20 10 MEQ/100 ML PIGGYBACK 100 MEQ IV ×2 (21:28→23:56)
--- NOTE | 2025-03-06 21:36 | PC.NURSE ---
Dtr Meredith called to inquire about pt. She expressed concerns pt has been more depressed over the past 4 days since pts' son has passed last . Pt currently denies s.i./h.i. Contact for Meredith [phone]
[2025-03-07] VITALS (7 sets, daily range): BP systolic 119–134; BP diastolic 57–66; PULSE 95–99; RESP 11–16; TEMP 36.7–37.6; O2SAT 93–96
[2025-03-07 00:24] LABS: Appearance Urine Clear; Glucose Urine UA Negative (Negative); PH 8.0 (5.0-9.0); Specific Gravity - Urine 1.015 (1.005-1.025); UMIC TRIGGER UACC YES
--- NOTE | 2025-03-07 01:37 | PC.NURSE ---
Took report from off-going RN at 2300 hours. Pt is a 74 y/o male who is awake, alert, and oriented X 4. Pt is pleasant and interacts appropriately with staff. Pt presented to the ED for evaluation of abd pain with N/V/D. Was incontinent of diarrhea upon arrival with EMS. G-tube fell out prior to arrival, but has since been reinserted and confirmed with X-Ray. Pt has IV access in right AC with NS, not currently running, flushes well, no signs of infiltration or indication of pain. Pt finshed second dose of IV potassium and is awaiting lab redraw for disposition. Verbalized having nausea and pain, medicated per MAR.
--- NOTE | 2025-03-07 01:47 | PC.NURSE ---
assumed care for pt at this time. pt resting quietly in stretcher in no notable distress. pts iv dressing changed, tubing noted to be disconnected and loose, leaking when attempted to flush. Clean dry dressing applied and new tubing placed. IV flushing well now and not leaking. Labs drawn and sent. VS updated. updated pt on plan of care. pts call pace within reach plan of care ongoing
[2025-03-07] MEDS: Potassium Bicarbonate/Cit AC 25 MEQ TABLET.EFF 50 MEQ G-TUBE (02:02)
[2025-03-07 02:19] LABS: Anion Gap 14 (12-20); Blood Urea Nitrogen 13 mg/dL (9-16); Calcium 8.7 mg/dL (8.4-10.2); Carbon Dioxide 22 mmol/L (22-29); Chloride 109 mmol/L (96-108); Creatinine Clr Calc Pharmacy 78.9; Estimated Glomerular Filt Rate > 60; Potassium 3.8 mmol/L (3.3-5.1); Sodium 141 mmol/L (135-145)
== END 2025-03-07 05:27 | disposition skilled nursing facility (03) ==
PROVIDERS: Physician Assistant Medical; Emergency Provider Internal Medicine; PCP Internal Medicine
DX: T85.528A Displacement of other gastrointestinal prosthetic devices, implants and grafts, initial encounter (principal); Y73.8 Miscellaneous gastroenterology and urology devices associated with adverse incidents, not elsewhere classified; Y92.818 Other transport vehicle as the place of occurrence of the external cause; E87.6 Hypokalemia; R19.7 Diarrhea, unspecified; Z87.891 Personal history of nicotine dependence; Z03.818 Encounter for observation for suspected exposure to other biological agents ruled out
CPT/HCPCS: 36415; 43762; 74018; 80048; 80053; 81001; 83735; 85025; 87637; 96361; 96365; 96366; 96375; 99285; J2270; J2405; J3480

== ENCOUNTER → 2025-03-06 18:56 | Outpatient (BNV) | payer OTHER, SELFPAY | PROVIDERS: Emergency Provider Internal Medicine; Visit Provider Radiology Diagnostic Radiology | DX: R52 Pain, unspecified (principal); Z93.1 Gastrostomy status | CPT/HCPCS: 74018 ==

== ENCOUNTER 2025-04-07 13:15 | Outpatient (AMB) | payer OTHER, SELFPAY ==
--- OUTSIDE RECORDS SUMMARY | 2025-03-16 11:15 | XMS_ITS ---
[facility] Address [address] [place] [address] Care Team Providers Care Machine Crater Name Role Phone Nino Tracy Primary Care Provider Unavailab Jarod Davis Unavailable [phone] Medications Medication SIG (Take, Route, Frequency, Duration) Notes Start Date End Date Status Ammonium Lactate 12 % 1 application to affected area Externally Twice a day to dry areas of skin on feet; Duration: 30 days Active Multi-Vitamins - TK 1 T PO QD Oral; Duration: 90 Active Azithromycin 250 MG Oral; Duration: 5 Not-Taking Orthopedic Extra Depth Shoes With Custom Heat Molded Multidensity Innersoles 1 Pair shoes with 3 Pair custom heat molded innersoles Wear Daily; Duration: 365 days Active Tamsulosin HCl 0.4 MG TK 1 C PO HS Oral; Duration: 90 Not-Taking Arthritis Pain Relief 650 MG TK 1 T PO TID Oral; Duration: 30 Active Vitamin B-12 1000 MCG TK 1 T PO D Oral; Duration: 90 Active Triamcinolone Acetonide 0.5 % JIMI EXT AA BID External; Duration: 28 Active Simvastatin 40 MG TK 1 T PO HS Oral; Duration: 90 Active tiZANidine HCl 2 MG TK 1 C PO TID Oral; Duration: 30 Active Meclizine HCl 12.5 MG TK 1 T PO TID PRF DIZZINESS Oral; Duration: 33 Active ProAir HFA 108 (90 Base) MCG/ACT INL 2 PUFFS PO QID PRF ASTHMA Inhalation; Duration: 16 Active Omeprazole 40 MG TK 1 C PO D Oral; Duration: 90 Active Qvar 80 MCG/ACT INL 1 PUFF PO BID Inhalation; Duration: 30 Active Pramipexole Dihydrochloride ER 3 MG TK 1 T PO HS Oral; Duration: 90 Active Gabapentin 300 MG TK 1 C PO TID Oral; Duration: 90 Active Levothyroxine Sodium 88 MCG TK 1 T PO D Oral; Duration: 90 Active Ferrous Sulfate 325 (65 Fe) MG TK 1 T PO QD Oral; Duration: 90 Active Fluticasone Propionate 50 MCG/ACT U 1 SPRAY IN EACH NOSTRIL BID Nasal; Duration: 30 Active Diclofenac Sodium 75 MG TK 1 T PO BID Or al; Duration: 30 Active Artificial Tears 1-0.3 % INSTILL 1 DROP IN BOTH EYES QID AND Q 2 H PRN FOR IRRATATION Ophthalmic; Duration: 13 Active Belbuca 150 MCG (Schedule III Drug) DISSOLVE 1 FILM UNDER THE TONGUE BID Buccal; Duration: 30 Not-Taking Fluvirin - ADM 0.5ML IM UTD Intramuscular; Duration: 1 Not-Taking Loratadine 10 MG TK 1 T PO D Oral; Duration: 30 Not-Taking DULoxetine HCl 60 MG TK 1 C PO QD WITH 3 0 MG C Oral; Duration: 90 Active Butrans 10 MCG/HR (Schedule III Drug) JIMI 1 PATCH TO THE SKIN ONCE A WEEK FOR 2 WEEKS THEN U 2 PATCHES FOR 1 WEEK Transdermal; Duration: 21 Not-Taking Encounters Encounter Location Date Provider Diagnosis [facility] [address] [address] 03/16/2025 Jarod Boone Plan Of Treatment Next Appt Details Provider Name:Jarod Boone , 05/01/2025 02:00:00 PM, [facility] [address], [address], Progress Notes * Lawrence PEDERSENDOB:1950 (74 yo M)Acc No.[id number]:03/16/2025 Progress Note Patient: Lawrence TAMAYO Provider: Miriam Boone DPM :1950 A ge:74 Y S ex:Male Date:03/16/2025 Address:[address] [place], [place] [id number] Pcp:Tracy Oneill Subjective: * Chief Complaints: * * Medical History: * Medications: T aking Artificial Tears 1-0.3 % Solution INSTILL 1 DROP IN BOTH EYES QID AND Q 2 H PRN FOR IRRATATION Ophthalmic , Taking DULoxetine HCl 60 MG Capsule Delayed Release Particles TK 1 C PO QD WITH 30 MG C Oral , Taking Diclofenac Sodium 75 MG Tablet Delayed Release TK 1 T PO BID Oral , Taking Ferrous Sulfate 325 (65 Fe) MG Tablet TK 1 T PO QD Oral , Taking Fluticasone Propionate 50 MCG/ACT Suspension U 1 SPRAY IN EACH NOSTRIL BID Nasal , Taking Gabapentin 300 MG Capsule TK 1 C PO TID Oral , Taking Levothyroxine Sodium 88 MCG Tablet TK 1 T PO D Oral , Taking Meclizine HCl 12.5 MG Tablet TK 1 T PO TID PRF DIZZINESS Oral , Taking Omeprazole 40 MG Capsule Delayed Release TK 1 C PO D Oral , Taking ProAir HFA 108 (90 Base) MCG/ACT Aerosol Solution INL 2 PUFFS PO QID PRF ASTHMA Inhalation , Taking Pramipexole Dihydrochloride ER 3 MG Tablet Extended Release 24 Hour TK 1 T PO HS Oral , Taking Qvar 80 MCG/ACT Aerosol Solution INL 1 PUFF PO BID Inhalation , Taking Simvastatin 40 MG Tablet TK 1 T PO HS Oral , Taking Triamcinolone Acetonide 0.5 % Cream JIMI EXT AA BID External , Taking tiZANidine HCl 2 MG Capsule TK 1 C PO TID Oral , Taking Vitamin B-12 1000 MCG Tablet TK 1 T PO D Oral , Taking Arthritis Pain Relief 650 MG Tablet Extended Release TK 1 T PO TID Oral , Taking Multi-Vitamins - Tablet TK 1 T PO QD Oral , Taking Ammonium Lactate 12 % Cream 1 application to affected area Externally Twice a day to dry areas of skin on feet , Taking Orthopedic Extra Depth Shoes With Custom Heat Molded Multidensity Innersoles 1 Pair shoes with 3 Pair custom heat molded innersoles Wear Daily , Not-Taking/PRN Azithromycin 250 MG Tablet Oral , Not-Taking/PRN Tamsulosin HCl 0.4 MG Capsule TK 1 C PO HS Oral , Not-Taking/PRN Butrans 10 MCG/HR Patch Weekly (Schedule III Drug) JIMI 1 PATCH TO THE SKIN ONCE A WEEK FOR 2 WEEKS THEN U 2 PATCHES FOR 1 WEEK Transdermal , Not-Taking/PRN Loratadine 10 MG Tablet TK 1 T PO D Oral , Not-Taking/PRN Fluvirin - Suspension ADM 0.5ML IM UTD Intramuscular , Not- Taking/PRN Belbuca 150 MCG Film (Schedule III Drug) DISSOLVE 1 FILM UNDER THE TONGUE BID Buccal Objective: * Vitals: Assessment: Plan: * Treatment: * Images: * The named appointment provid er may or may not be the originator of this progress note, and it is not deemed complete until electronically signed by the appointment provider. Sign off status: Pending * Provider: Miriam Boone DPM Date: 0 03/16/2025 Generated for Yazmin ross/Jimmie/Leonides on: 04/07/2025 01:17 PM EDT
--- OUTSIDE RECORDS SUMMARY | 2025-04-07 13:18 | XMS_ITS | Patient Health Record ---
Author Organization Pedro Jasso III, MD Address [address] [facility] [place] [address] Care Team Providers Care Mail Processor Name Role Phone Nino CEBALLOS, [facility] Primary Care Provider Pedro [facility] [phone] Allergies Allergen (clinical drug ingredient) Drug/Non Drug Allergy documented on EMR Reaction Allergy Type Onset Date Status Penicillin rash Drug Allergy Active lisinopril Lisinopril COUGH Drug Allergy Activ e aspirin Aspirin stomach upset Drug Allergy Act [...] Problem Status W/U Status Risk Notes Problem 4461378 Former smoker (Z87.891) Active confirmed He seems motiva fransisco not to smoke. We discussed a strategy to prevent relapse and time of illness or stress. Problem 73247694 Weight loss (R63.4) Active confirmed He has lost rob ost 40 pounds since 2018. The cause is being sought. Problem 673522514 Anemia of chroni c disease (D63.8) Active confirmed The anemia a ppears to be chronic disease. He will be evaluated for a monoclonal protein and plasma cell dyscrasia. It is normochromic and normocytic and no bleeding has been noted. Problem 608574311 Gastroesophageal reflux disease without esophagitis (K21.9) Active confirmed His reflux is well-controlled with prescription medication. Problem 07306654 Dysphagia, unspecified type (R13.10) Active confirmed A barium swallo w has been ordered. Problem 296859173 Benign prostatic hyperplasia with lower urinary tract symptoms (N40.1) Active confirmed He rises from s leep once or twice a night. We discussed lifestyle modification using the feeding tube is way to reduce nocturnal urinating. Problem 968081110 Back pain at L4-L5 level (M54.5) Active confirmed The pain is min imal today in no additional treatment was necessary. Problem Monoclonal gammopathy present on serum protein electrophoresis (D47.2) Active confirmed Comprehensive b lood work including electrophoresis and immunofixation and light chain studies has been ordered. Current lab values are not available. 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 Problem 44999086 Major depressive disorder with psychotic features (F32.3) Active confirmed He says he is not suicidal, but is feeling very depressed. He has a history of major depression. He was referred back to primary care for management of his nonneoplastic needs. Problem 562031288 Joyner's esophagus determined by biopsy (K22.70) Active confirmed He denies an y dysphagia. He is under the care of a kiln furniture saw tender and will have periodic upper endoscopy. Problem 42497834 Trismus (R25.2) Active confirmed He has a feeding tube because of the trismus. He has no pain if he does not attempt to open his mouth widely. Plan Of Treatment Pending Test Test Name Order Date PREALBUMIN 05/09/2022 PROFILE, RANDOM (COMPREHENSIVE METABOLIC ) 11/24/2018 PROFILE, RANDOM (COMPREHENSIVE METABOLIC ) 11/25/2021 PROFILE, RANDOM (COMPREHENSIVE METABOLIC ) 11/05/2021 PROFILE, RANDOM (COMPREHENSIVE METABOLIC ) 04/05/2018 PROFILE, RANDOM (COMPREHENSIVE METABOLIC ) 08/23/2019 PROFILE, RANDOM (COMPREHENSIVE METABOLIC ) 01/09/2023 PROFILE, RANDOM (COMPREHENSIVE METABOLIC ) 07/08/2023 PROFILE, RANDOM (COMPREHENSIVE METABOLIC ) 05/09/2022 PROFILE, RANDOM (COMPREHENSIVE METABOLIC ) 01/27/2022 LDH 11/05/2021 FREE T4 (FT4) 11/24/2018 FREE T4 (FT4) 08/23/2019 FREE T4 (FT4) 01/09/2023 FREE T4 (FT4) 05/09/2022 TSH (THYROID STIMULATING HORMONE) 2018 TSH (THYROID STIMULATING HORMONE) 2018 TSH (THYROID STIMULATING HORMONE) 2022 TSH (THYROID STIMULATING HORMONE) 2021 FERRITIN 11/05/2021 FERRITIN 11/24/2018 FERRITIN 01/27/2022 B12 11/24/2018 PSA, TOTAL 07/08/2023 CBC w DIFF 01/09/2023 CBC w DIFF 11/24/2018 CBC w DIFF 05/09/2022 CBC w DIFF 04/15/2019 CBC w DIFF 11/25/2021 CBC w DIFF 04/05/2018 CBC w DIFF 11/05/2021 CBC w DIFF 07/08/2023 CBC w DIFF 08/23/2019 CBC w DIFF 01/27/2022 SED RATE (ESR) 01/27/2022 SED RATE (ESR) 01/09/2023 RETICULOCYTE COUNT,CORRECTED 11/25/2021 RETICULOCYTE COUNT,CORRECTED 11/05/2021 IMMUNOFIXATION PANEL, SERUM (IEP) 2022 IMMUNOFIXATION PANEL, SERUM (IEP) 2021 IMMUNOFIXATION PANEL, SERUM (IEP) 2017 IMMUNOFIXATION PANEL, SERUM (IEP) 2022 PROTEIN ELECTROPHORESIS, SERUM 3 PROTEIN ELECTROPHORESIS, SERUM 3 PROTEIN ELECTROPHORESIS, SERUM 2 BETA-2 MICROGLOBULIN, SERUM 11/25/2021 IMMUNOFIXATION PANEL RAND UR (IEP) 04/05 FREE KAPPA LAMBDA, SERUM K/L RATIO 10/28 FREE KAPPA LAMBDA, SERUM K/L RATIO 11/25 FREE KAPPA LAMBDA, SERUM K/L RATIO 01/09 FREE KAPPA LAMBDA, SERUM K/L RATIO 07/08 KAPPA LAMBDA SER 10/28/2022 KAPPA LAMBDA SER 11/25/2021 KAPPA LAMBDA SER 01/09/2023 KAPPA LAMBDA SER 07/08/2023 CT NECK W&WO CONTRAST 01/09/2023 XR BARIUM SWALLOW, MODIFIED VIDEO 2021 Testosterone, Free/Total 01/09/2023 Protein Electrophoresis, Serum 3 Immunofixation Pnl, Serum 01/09/2023 Insurance Providers Payer Name Payer Address Payer Phone Subscriber Number Group Number Insured Name Patient Relationship to Insured Coverage Start Date Coverage End Date [facility] [address] ATTN CLAIMS [place] [id number] Lawrence Pedersen Self - patient is the insured 6 MEDICARE NGS [address] [place] [address] [id number] Lawrence Pedersen Self - patient is the insured [place] [address] [place], [place] [id number] Lawrence Pedersen Self - patient is the [...] and panendoscopy 2003 dilatation of cervical esophageal 9 cystoscopy turp X2 08/2005 L5-S1 fusion 02/2003 colonoscopy, [facility], Dr. Culver 10/2001 laminectomy, lumbar spine, Dr. Henderson 2002 Hospitalization History Reason Date(Month/Year) insertion of feeding tube Dr Frankel 07/2022 anemia needed blood transfusion 11/25 Anemia 10/2021 throat infection 2018
--- OUTSIDE RECORDS SUMMARY | 2025-04-07 13:18 | XMS_ITS ---
Author Name [facility] Organization Unknown Encounters Encounter Type Encounter Reason Primary Diagnosis Location Date Inpatient Cellulitis of face [facility] 12/06/2021 Care Team Organization Name Specialty Phone Email Start Date End Da te [facility] 12/06/2021 04/25/2024 [facility] 12/06/2021 12/06/2021
--- OUTSIDE RECORDS SUMMARY | 2025-04-07 13:18 | XMS_ITS | Clinical Summary ---
Author Organization [facility] Address [address] [place] [id number] Phone Care Team Providers Care Histopathologist Name Role Phone Tracy Oneill MD Primary Care Provider Allergies Active Allergy Reactions Criticality Noted Date Comments Aspirin Unknown 06/12/2023 Lisinopril Unknown Medium 11/25/2021 Penicillin Unknown 06/12/2023 Medications umeclidinium-rai anteroL (ANORO ELLIPTA) 62.5-25 mcg/actuation diskus inhaler Inhale 1 puff into the lungs daily as needed. Active triamcinolone acetonide 0.5 % cream JIMI EXT AA BID External for 28 Active triamcinolone acetonide 0.5 % cream apply externally to the affected area twice daily 3 Active ID-artificial tears PF (18312) ophthalmic solution INSTILL 1 DROP IN BOTH EYES QID AND Q 2 H PRN FOR IRRATATION Ophthalmic for 13 Active loratadine 10 mg Cap TK 1 T PO D Oral for 30 Active albuterol 90 mcg/actuation inhaler INL 2 PUFFS PO QID PRF ASTHMA Inhalation for 16 Active acetaminophen (TYLENOL) 650 MG CR tablet TK 1 T PO TID Oral for 30 Active M-PAP 160 mg/5 mL solution TAKE 10ML VIA GIVE-TUBE THREE TIMES DAILY NEEDED FOR PAIN 3 Active albuterol 90 mcg/actuation inhaler 3 Active albuterol 90 mcg/actuation inhaler INHALE 2 PUFFS BY MOUTH EVERY 4 TO 5 HOURS NEEDED FOR SHORTNESS OF BREATH Active amLODIPine (NORVASC) 2.5 MG tablet 3 Active ammonium lactate (AMLACTIN) 12 % cream 1 application to affected area Externally to feet Twice a day for 30 days Active azithromycin (ZITHROMAX) 250 MG tablet Oral for 5 Active buprenorphine (BUTRANS) 10 mcg/hour PTWK transdermal patch (Schedule III Drug) JIMI 1 PATCH TO THE SKIN ONCE A WEEK FOR 2 WEEKS THEN U 2 PATCHES FOR 1 WEEK Transdermal for 21 Active buprenorphine HCl (BELBUCA) 150 mcg buccal film (Schedule III Drug) DISSOLVE 1 FILM UNDER THE TONGUE BID Buccal for 30 Active cefpodoxime (VANTIN) 200 MG tablet TAKE 2 TABLETS VIA PEG TUBE TWICE DAILY 3 Active cyanocobalamin, vitamin B-12, 1000 MCG tablet TK 1 T PO D Oral for 90 Active VITAMIN B-12 1000 MCG tablet Take 1 tablet by mouth every morning. 3 Active diclofenac sodium (VOLTAREN) 75 MG EC tablet TK 1 T PO BID Oral for 30 Active DULoxetine (CYMBALTA) 30 MG capsule Take 1 capsule by mouth every morning. 3 Active ferrous sulfate 220 mg (44 mg rampart iron)/5 mL elixir GIVE 5 ML VIA GIVE-TUBE EVERY DAY 3 Active FLOVENT HFA 110 mcg/actuation inhaler Inhale 2 puffs into the lungs 2 (two) times a day. 3 Active fluticasone propionate (FLONASE) 50 mcg/actuation nasal spray U 1 SPRAY IN EACH NOSTRIL BID Nasal for 30 Active gabapentin (NEURONTIN) 400 MG capsule TAKE 1 CAPSULE VIA PEG EVERY NIGHT AT BEDTIME 3 Active levocetirizine (XYZAL) 5 MG tablet Take 5 mg by mouth every evening. 3 Active levothyroxine (SYNTHROID, LEVOTHROID) 75 MCG tablet Take 1 tablet by mouth every morning. 3 Active meclizine (ANTIVERT) 12.5 mg tablet TK 1 T PO TID PRF DIZZINESS Oral for 33 Active multivitamin per tablet Take 1 tablet by mouth every morning. 3 Active omeprazole (PRILOSEC) 40 MG capsule Take 1 capsule by mouth every morning. 3 Active pramipexole (MIRAPEX ER) 3 mg Tb24 TK 1 T PO HS Oral for 90 Active sulfamethoxazole -trimethoprim (BACTRIM,SEPTRA) 200-40 mg/5 mL suspension SHAKE LIQUID AND TAKE 20 MLS VIA G TUBE TWICE DAILY 3 Active simvastatin (ZOCOR) 40 MG tablet TK 1 T PO HS Oral for 90 Active BD SAFETYGLIDE SYRINGE 3 mL 25 x 5/8 Syrg USE DIRECTED EVERY 8 HOURS FOR OCTREOTIDE 3 Active tamsulosin (FLOMAX) 0.4 mg Cap TK 1 C PO HS Oral for 90 Active timolol (TIMOPTIC) 0.5 % ophthalmic solution INSTILL 1 DROP IN LEFT EYE EVERY MORNING 3 Active tiZANidine (ZANAFLEX) 2 MG capsule TK 1 C PO TID Oral for 30 Active traMADoL (ULTRAM) 50 mg tablet Take 50 mg by mouth 3 (three) times a day. 3 Active Active Problems No known active problems Social History Tobacco Use Types Packs/Day Years Used Date Smoking Tobacco: Never Assessed Tobacco Cessation:Counseling Given: Not Answered Education Answer Date Recorded Are you interested in more education? Not on sofi e 05/26/2023 Are you concerned about learning? Not on file 05/26/2023 No 05/26/2023 No 05/26/2023 Digital Access Answer Date Recorded No 05/26/2023 No 05/26/2023 Reliable internet access at home? Not on file 05/26/2023 Device with a working camera? Not on file Sex and Gender Information Value Date Recorded Sex Assigned at Not on file Legal Sex Male 11:01 AM EDT Gender Identity Not on file Sexual Orientation Not on file Last Filed Vital Signs Vital Sign Reading Time Taken Comments Blood Pressure 118/66 06/12/2023 9:22 AM EDT Pulse 81 06/12/2023 9:22 AM EDT Temperature - - Respiratory Rate - - Oxygen Saturation 100% 06/12/2023 9:22 AM EDT Inhaled Oxygen Concentration - - Weight 55.3 kg (122 lb) 06/12/2023 9:22 AM EDT Height 170.2 cm (5' 7 ) 06/12/2023 9:22 AM EDT Body Mass Index 19.11 06/12/2023 9:22 AM EDT Plan of Treatment Health Maintenance Due Date Last Done Comments Adult Td,Tdap Booster 1950 LIPID PANEL 1950 TSH LEVEL 1950 DEPRESSION SCREENING 1962 SMOKING Hx and SMOKELESS TOBACCO SCREENING 1963 HEPATITIS C SCREENING 1968 COLOGUARD 1995 COLONOSCOPY 1995 COLORECTAL CANCER SCREENING 1995 FIT TEST 1995 FOBT 1995 SIGMOIDOSCOPY 1995 VIRTUAL COLONOSCOPY 1995 ZOSTER VACCINES (2 of 3) 11/26/2015 016, 07/06/2012 PNEUMOCOCCAL VACCINES (50+ years) (2 of 2 - PPSV23) 10/01/2016 10/01/2015 COVID-19 VACCINE (4 - 2023-2 5 season) 2024 03/20/2021, 01/04/2021, 12/07/2020 RSV VACCINE (1 - 1-dose 75+ series) 2025 HEPATITIS A VACCINES Aged Out No long er eligible based on patient's age to complete this topic HIB VACCINES Aged Out No longer eligi ble based on patient's age to complete this topic MENINGOCOCCAL VACCINES (ACWY) Aged Out No longer eligible based on patient's age to complete this topic MENINGOCOCCAL VACCINES (B) Aged Out N o longer eligible based on patient's age to complete this topic Medical Devices Not on file Insurance [address] [place], [place] [id number] MEDICARE REPLACEMENT [facility] MEDICARE REPLACEMENT [facility] MEDICARE REPLACEMENT Care Teams Histopathologist Relationship Specialty Start Date End Date Tracy Oneill MD [address] [place] [address] [place] [address] PCP - General Internal Medicine 05/26/23 Additional Source Comments The information contained in this document represents components of the legal health record. It is not the complete legal health record.[facility]
--- OUTSIDE RECORDS SUMMARY | 2025-04-07 13:18 | XMS_ITS | Clinical Summary ---
Author Organization [facility] Address [id number] [place] [address] Care Team Providers Care Awning Installer Name Role Phone Unavailable Primary Care Provider Unavailabl e Surgical History Surgery Date Site/Laterality Comments BACK SURGERY 02/2003 PROCEDURE: HISTORICAL BACK SURGERY; COMMENT: Lumbar Fusion, Dr. Henderson TURP / TRANSURETHRAL INCISIO N / DRAINAGE PROSTATE PROCEDURE: HISTORICAL TURP; COMMENT: x2: 08/2005, 09/2008 OTHER SURGICAL HISTORY PROCEDURE: [facility] EGD DILATION GASTRIC/DUODENAL STRICTURE; COMMENT: Esophageal, x3 Medical History Medical History Date Comments Facial cellulitis 12/06/2021 DX:Facial cell ulitis COPD (chronic obstructive pu lmonary disease) ([facility] V24, [facility] V28) DX:COPD (chronic o bstructive pulmonary disease) ([facility]) Aortic stenosis DX:Aortic stenos is Coronary stenosis DX:Coronary st enosis BPH (benign prostatic hyperplasia) DX:BPH (benign prostatic hyperplasia) Lumbar spondylosis DX:Lumbar spo ndylosis Cancer of tonsil ([facility] V2 4, [facility] V28) DX:Cancer of tonsil ([facility]); C OMMENT: Malignant neoplasm of pharynx, status post surgery Depression DX:Depression Hyperlipidemia DX:Hyperlipidemi a Hypothyroidism DX:Hypothyroidis m Joyner's esophagus DX:Joyner's esophagus Hiatal hernia DX:Hiatal hernia Ascending aortic aneurysm ([facility] V24) DX:Ascending aortic aneurysm ([facility]) Social History Tobacco Use Types Packs/Day [...] of 2 - PPSV23) 10/01/2016 10/01/2015 COVID-19 Vaccine (4 - 2023-2 5 season) 2024 03/20/2021, 01/04/2021, 12/07/2020 Depression Screening 09/07/2024 Influenza Vaccine (#1) 2025 , 06/09/2017, 04/15/2016 RSV Immunization Adult Patients (1 - 1-dose 75+ series) 2025 HIB [...] age to complete this topic Meningococcal B Vaccine Aged Out No l onger eligible based on patient's age to complete this topic RSV Immunization Patients Under 20 months Aged Out No longer eligible b ased on patient's age to complete this topic Varicella Vaccines Aged Out No longer eligible based on patient's age to complete this topic
--- OUTSIDE RECORDS SUMMARY | 2025-04-07 13:18 | XMS_ITS | Clinical Summary ---
Author Organization [facility] Address [address] [place] [address] Care Team Providers Care Ice Cream Man Name Role Phone Unknown Primary Care Provider [phone] Allergies Active Allergy Reactions Criticality Noted Date Comments Lisinopril Unknown/Patient and Family Unable to Define Medium 11/25/2021 Medications Acetaminophen Extra Strength 500 MG tablet Take 500 mg by mouth 3 (three) times a day as needed for mild pain or headaches. 2 Active atorvastatin (LIPITOR) 80 MG tablet Take 80 mg by mouth nightly. 2 Active DULoxetine (CYMBALTA) 60 MG capsule Take 60 mg by mouth every morning. Along with 30 mg capsule for total dose of 90 mg 2 Active DULoxetine (CYMBALTA) 30 MG capsule Take 30 mg by mouth every morning. Along with 60 mg capsule for total dose of 90 mg 2 Active fluticasone (FloNASE) 50 mcg/spray nasal spray SHAKE LIQUID AND USE 1 SPRAY IN EACH NOSTRIL TWICE DAILY 2 Active gabapentin (NEURONTIN) 400 MG capsule Take 400 mg by mouth 3 (three) times a day. 2 Active folic acid (FOLVITE) 1 MG tablet Take 1 mg by mouth daily. 2 Active losartan (COZAAR) 50 MG tablet Take 50 mg by mouth daily. 2 Active OMEprazole (PriLOSEC) 40 MG capsule Take 40 mg by mouth every morning before breakfast. 2 Active tiZANidine (ZANAFLEX) 4 MG tablet Take 4 mg by mouth nightly. 2 Active traMADol (ULTRAM) 50 MG tablet Take 50 mg by mouth 3 (three) times a day as needed. for pain 2 Active triamcinolone (KENALOG) 0.5 % cream APPLY EXTERNALLY TO THE AFFECTED AREA TWICE DAILY. 2 Active albuterol (PROVENTIL HFA; VENTOLIN HFA) 108 (90 Base) MCG/ACT inhaler INHALE 2 PUFFS BY MOUTH EVERY 4 TO 5 HOURS NEEDED FOR SHORTNESS OF BREATH Active levothyroxine (Synthroid) 75 MCG tablet Take 75 mcg by mouth daily on an empty stomach. Active cyanocobalamin (VITAMIN B-12) 1000 MCG tablet Take 1,000 mcg by mouth daily. Active Multiple Vitamins-Minera ls (Centrum Silver 50+Men) Tab Take 1 tablet by mouth daily. Active umeclidinium-vi lanterol (ANORO ELLIPTA) 62.5-25 MCG/INH inhaler Inhale 1 puff as needed. Active sulfamethoxazol e-trimethoprim (BACTRIM) suspensionIndic ations:Facial cellulitis Take 20 mL by mouth every 12 (twelve) hours around the clock. 400 mL 2 Active Active Problems Problem Noted Date Diagnosed [...] at Not on file Legal Sex Male 6:59 PM EST Gender Identity Not on file Sexual Orientation Not on file Last Filed Vital Signs Vital Sign Reading Time Taken Comments Blood Pressure 128/68 12/12/2021 1:45 PM EDT Pulse 80 12/12/2021 1:45 PM EDT Temperature 35.8 C (96.4 F) 12/12/2021 1:45 PM EDT Respiratory Rate 18 12/12/2021 1:45 PM EDT [...] Zoster (Shingles) Vaccine (1 of 2) 2000 COVID-19 Vaccine (1 - 2023-2 5 season) 2024 Influenza Vaccine 04/07/2025 RSV Vaccine 60 years and old er and Patients (1 - 1-dose 75+ series) 2025 Hepatitis B Vaccines Aged Out No long er eligible based on patient's age to complete this topic Insurance [facility] [place] [employer] Advance Directives * Full Code (Latest Code Status on File) Date Activated Date Inactivated Comments 12/06/2021 9:21 PM Care Teams Ice Cream Man Relationship Specialty Start Date End Date Unknown Unknow Provider Address PCP - General 12/06/21
--- NOTE | 2025-04-07 13:19 | A.OFFVIS_ITS ---
Vital Signs 04/07/25 13:23 Height 5 ft 7 in Weight 129 lb 13.636 oz BMI 20.3 BP 115/62 Blood Pressure Location Lt brachial Position Sitting Pulse 74 Pulse Source Pulse Oximeter Pulse Oximetry (%) 98 Oxygen Delivery Method Room Air Intake Visit Reasons: OA Intake Note: Patient presents for OA follow up. Allergies Penicillins Allergy (Intermediate, Verified 04/07/25 13:22) Rash aspirin (ASA) Adverse Reaction (Intermediate, Verified 04/07/25 13:22) GI BLEED, Headaches naproxen Adverse Reaction (Intermediate, Verified 04/07/25 13:22) cannot mix with current meds HPI Comments Details: Patient is a 74-year-old male with hypertension, depression, allergies, hypothyroidism, GERD, hyperlipidemia complicated by ascending aortic aneurysm, hx of throat cancer s/p chemoradiation with gastrostomy tube in Situ and polyarticular osteoarthritis here today for follow up Interval History: Patient last seen 09/15/[address] Koenig - Not on any medications prescribed by rheum - Complained of bilateral knee pain - XRs showed bone infarcts and he was referred to Onc, steroid injections deferred Today, - Not on any medications prescribed by rheum - Complaining of left knee pain Rheumatologic History: OA Current Rheumatology Medication(s): [facility] Medical History Gastrostomy tube in place Uses feeding tube Pain around PEG tube site Normocytic anemia Lumbar radiculitis Post laminectomy syndrome History of epistaxis Esophageal stricture COVID-19 Anemia Pulmonary fibrosis Osteoarthritis of left shoulder Arthritis Back pain Hx of radiation therapy History of chemotherapy Cancer Difficulty swallowing Thyroid disease GERD (gastroesophageal reflux disease) Depression Pulmonary nodule COPD (chronic obstructive pulmonary disease) Aortic aneurysm Elevated cholesterol HTN (hypertension) Surgical History History of nasal surgery History of transurethral resection of prostate History of back surgery History of esophagogastroduodenoscopy (EGD) H/O colonoscopy Family History Father Brain cancer Mother CVD (cardiovascular disease) Maternal Aunt Diabetes Social History Household Members: Spouse and Children Household Members Other:: 2 Housing: Apartment Do you presently have visiting nurse or other home services: No Alcohol intake: never Comment: pt here with syncope and low BP Patient Tobacco Use Status: Former Tobacco user Tobacco use type: Cigarette Cigarette Packs Per Day: 3 Years Smoked: 25 e-Cigarette/Vaping Use: Never Used Second Hand Smoke Exposure: No Advance Directives Date on File: 03/04/21 service: No Current occupational status: disabled Review of Systems Const All systems reviewed & are unremarkable except as noted in HPI and below Physical Exam Exam Exam: Vital signs reviewed Physical Examination CONSTITUITIONAL Patient alert and cooperative. Well appearing and in no apparent painful distress MSK Hands * Right Hand: Able to make a fist. No swelling or tenderness to palpation of these joints. No deformities noted. * Left Hand: Able to make a fist. No swelling or tenderness to palpation of these joints. No deformities noted. Wrists * Right Wrist: Full ROM. 70 degrees of wrist flexion, 80 degrees of wrist extension. No swelling or TTP * Left Wrist: Full ROM. 70 degrees of wrist flexion, 80 degrees of wrist extension. No swelling or TTP Elbows * Right Elbow: Full ROM. No swelling or TTP. No TTP of the medial and lateral epicondyles * Left Elbow: Full ROM. No swelling or TTP. No TTP of the medial and lateral epicondyles Shoulders * Right shoulder: Full ROM. No swelling noted. No TTP of the AC joint, subacromial bursa or posterior shoulder * Left shoulder: Full ROM. No swelling noted. No TTP of the AC joint, subacromial bursa or posterior shoulder Knees * Right knee: Decreased ROM to extension. No swelling noted. No TTP of the knee joint lie or pes anserine bursa * Left knee: Decreased ROM to extension. No swelling noted. TTP of the knee joint lie. No TTP pes anserine bursa. Ankles * Right ankle: Good ankle dorsiflexion and plantar flexion. No swelling. No TTP of the ankle joint * Left ankle: Good ankle dorsiflexion and plantar flexion. No swelling. No TTP of the ankle joint Feet * Right foot: Negative squeeze test * Left foot: Negative squeeze test Tender points? * No tenderness to palpation of the bilateral trapezius, supraspinatus, anterior costochondral junctions, bilateral suboccipital muscle insertions Vital Signs: Last Vital Signs Pulse 74 04/07/25 13:23 BP 115/62 08/01/25 13:23 Pulse Ox 98 04/07/25 13:23 Oxygen Delivery Method Room Air 04/07/25 13:23 BMI result Body Mass Index 20.3 Results Reviewed Results Reviewed: Laboratory Tests 03/06/25 03/07/25 19:10 01:42 WBC 5.6 RBC 3.53 L Hgb 11.3 L Hct 33.6 L Plt Count 204 Sodium 141 Potassium 3.8 D Chloride 109 H Carbon Dioxide 22 BUN 13 Creatinine 0.73 AST 28 ALT 16 MR Left Knee 10/2024 FINDINGS: MENISCI: Medial Meniscus: Tiny undersurface tear posterior horn (series 10, image 9) . Otherwise intact. Lateral Meniscus: Horizontal cleavage tear extending to the free margin posterior horn , with more medial free margin fraying (Series 10, images 18-21). Otherwise intact. LIGAMENTS: Anterior Cruciate: Intact and normal in signal. Posterior Cruciate: Intact and normal in signal. Medial Collateral: Intact and normal in signal. Lateral Collateral Complex: Biceps femoris tendon, conjoined tendon, fibular collateral ligament, and popliteus tendon are all intact and normal in signal. EXTENSOR MECHANISM: Intact and normal in signal. The patellar retinaculum and medial patellofemoral ligament are intact. JOINT COMPARTMENTS: Patellofemoral Compartment: Mild arthritis present, with mild cartilage superficial fraying and eburnation of the lateral facet. Mild thinning of the medial facet. No full-thickness cartilaginous defect. Medial Compartment: Mild cartilaginous thinning tibial plateau especially medial aspect weightbearing femoral cartilage. Nonweightbearing femoral cartilage is intact. Joint space is overall preserved. Lateral Compartment: Minimal superficial cartilaginous thinning and eburnation of the weightbearing components. No full-thickness defect. Joint space is overall preserved. OSSEOUS STRUCTURES: -There are bone infarctions in the intramedullary femoral metadiaphysis and tibial metadiaphysis. -No fractures or foci of subchondral bone plate edema. -No additional abnormal bone marrow signal. JOINT FLUID AND BURSAE: There is no joint effusion. There is a tiny Glasgow's cyst in the medial popliteal fossa measuring 9 x 7 x 29 mm. IMPRESSION: 1. Horizontal cleavage tear posterior horn lateral meniscus. 2. Tiny undersurface tear posterior horn medial meniscus. 3. Intramedullary bone infarctions within the femoral and tibial metadiaphyses. No suspicious abnormal bone marrow signal or gross edema. 4. No ligamentous abnormalities. 5. Tiny Glasgow's cyst in the medial popliteal fossa. XR Right Knee 09/2024 Findings: Minimal patellar osteophyte superior pole. Otherwise normal-appearing patellofemoral relationship. No joint effusion. Soft tissues intact. Intramedullary bone infarct of the distal femur and proximal tibia. Impression: Intact patellofemoral compartment. No joint effusion. Bone infarcts as noted. XR Left 09/2024 Findings: Lateral and sunrise view of the left knee compared to the AP view demonstrating intramedullary bone infarcts in the distal femur and proximal tibia. No knee effusion. Intact patellofemoral compartment. No knee effusion. Soft tissues intact. 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 Intact patellofemoral compartment. No joint effusion. Assessment & Plan Assessment & Plan (1) Osteoarthritis: Comment: multiple joints & sites - hands, knees, LS spine Code(s): M19.90 - Unspecified osteoarthritis, unspecified site Category: Medical Qualifiers: Osteoarthritis location: multiple joints Osteoarthritis type: primary Qualified Code(s): M15.0 - Primary generalized (osteo)arthritis Plan: #Polyarticular OA Patient is a 74 year old male with polyarticular OA here today for follow up C/o left knee pain Given the bone infarct would not recommend proceeding with further steroid injections Refer to ortho for other management options Plan - Ortho referral - RTC 1 year Plan I spent 20 minutes reviewing the record and labs, taking a history, examining the patient, discussing the treatment plan, and documenting in the medical record Orders: Referrals Orthopedics Referral M17.12 - Unilateral primary osteoarthritis, left knee Coding Level of Care Code Est Pt Level 3 (98113) Diagnoses Primary osteoarthritis involving multiple joints M15.0 Osteoarthritis location: multiple joints Osteoarthritis type: primary
[2025-04-07 13:23] VITALS: BP 115/62; PULSE 74; O2SAT 98; BMI 20.3
== END 2025-04-07 13:59 | disposition home or self-care (01) ==
LOC: HO.RHE 13:16
PROVIDERS: PCP Internal Medicine; Visit Provider Student in an Organized Health Care Education/Training Program
DX: M15.0 Primary generalized (osteo)arthritis (principal)
CPT/HCPCS: 99213

== ENCOUNTER → 2025-04-07 13:15 | Outpatient (BNVA) | payer OTHER, SELFPAY | PROVIDERS: PCP Internal Medicine; Visit Provider Student in an Organized Health Care Education/Training Program | DX: M15.0 Primary generalized (osteo)arthritis (principal); I10 Essential (primary) hypertension | CPT/HCPCS: 99212 ==